=== PATIENT | male | born 1950 | race Hispanic/Latino ===

== ENCOUNTER 2017-01-28 14:39 | Inpatient (IN) | payer MEDICARE, OTHER ==
[2017-01-28 16:26] LABS: BASO # 0.02 K/mm3 (0.0-2.0); BASO % 0.2 % (0.0-3.0); EOS # 0.3 (0.0-0.7); EOS % 2.8 % (1.5-5.0); GRAN % 63.2 % (50.0-68.0); HEMOGLOBIN 10.6 gm/dL (14.0-18.0); LYMPH # 2.3 (1.2-3.4); MEAN CELL VOLUME 82.6 fL (80.0-105.0); MEAN CORPUSCULAR HEMOGLOBIN 26.4 pg (25.0-35.0); MEAN CORPUSCULAR HGB CONC 31.9 g/dl (31.0-37.0); MEAN PLATELET VOLUME 9.6 fl (7.0-11.0); MONO # 0.7 (0.1-0.6); MONO % 7.8 % (1.0-6.0); PLATELET COUNT 181 10^3/uL (120.0-450.0); RBC 4.02 10^6/uL (3.5-6.1); RED CELL DISTRIBUTION WIDTH 17.5 % (11.5-14.5); WHITE BLOOD COUNT 8.9 10^3/ul (4.5-11.0)
[2017-01-28 16:39] LABS: ALBUMIN 3.5 g/dL (3.0-4.8); ALT/SGPT 50 U/L (7-56); AST/SGOT 55 U/L (15-59); BLOOD UREA NITROGEN 14 mg/dL (7-21); GFR AFRICAN-AMERICAN > 60; GFR NON-AFRICAN AMERICAN > 60
--- NOTE | 2017-01-28 16:47 | RAD ---
HISTORY: draining wound to upper back s/p surgery COMPARISON: 01/14/2016 FINDINGS: LUNGS: There is a patchy infiltrate in the right lower lobe adjacent to the hilum. This is a new finding. This is suspicious for pneumonia PLEURA: No significant pleural effusion identified, no pneumothorax apparent. CARDIOVASCULAR: Normal. OSSEOUS STRUCTURES: No significant abnormalities. VISUALIZED UPPER ABDOMEN: Normal. OTHER FINDINGS: None. IMPRESSION: There is a patchy infiltrate in the right lower lobe adjacent to the hilum. This is a new finding. This is suspicious for pneumonia
--- NOTE | 2017-01-28 16:57 | ED PDOC ---
Arrival/HPI - General Chief Complaint: Wound Check Time Seen by Provider: 01/28/17 15:16 Historian: Patient - History of Present Illness Narrative History of Present Illness (Text): 01/28/17 16:54 67-year-old diabetic male presents today with a draining wound along the thoracic spine. Patient states about one year ago he had back surgery. Patient states over the past 3 weeks he's had continual draining from the wound along the incision site. Patient denies fevers or chills. No chest pain or shortness of breath. Denies abdominal pain. He denies pain along the back. Denies any urinary symptoms. Patient states he is being seen by the licensed mental health professional for an ulceration on the right foot. Time/Duration: Other (3 weeks) Symptom Onset: Gradual Symptom Course: Unchanged Past Medical History - Provider Review Nursing Documentation Reviewed: Yes - Travel History Have you recently traveled outside [place] w/in the past 3 mons?: No - Infectious Disease Hx of Infectious Diseases: None - Tetanus Immunization Tetanus Immunization: Unknown - Cardiac Hx Hypertension: Yes - Pulmonary Hx Pneumonia: Yes - Neurological Hx Neurological Disorder: Yes Hx Dizziness: Yes Hx Migraine: Yes - HEENT Hx HEENT Disorder: No - Renal Hx Renal Disorder: No - Endocrine/Metabolic Hx Diabetes Mellitus Type 2: Yes - Hematological/Oncological Hx Blood Transfusions: No Hx Blood Transfusion Reaction: No - Integumentary Hx Dermatological Disorder: Yes (RIGHT 2ND TOE AMPUTATED) - Musculoskeletal/Rheumatological Hx Musculoskeletal Disorders: Yes - Gastrointestinal Hx Gastrointestinal Disorders: No - Genitourinary/Gynecological Hx Genitourinary Disorders: No - Psychiatric Hx Depression: Yes (pt reports peroids of sadness) Hx Substance Use: No - Surgical History Hx Coronary Stent: Yes (X 3) - Anesthesia Hx Anesthesia: No Hx Anesthesia Reactions: No Hx Malignant Hyperthermia: No - Suicidal Assessment Feels Threatened In Home Enviroment: No Family/Social History - Physician Review Nursing Documentation Reviewed: Yes Family/Social History: Unknown Family HX Smoking Status: Former Smoker Hx Alcohol Use: Yes (former) Hx Substance Use: No Allergies/Home Meds Allergies/Adverse Reactions: Allergies No Known Allergies Allergy (Verified 01/14/16 13:28) Home Medications: Home Meds Medication Instructions Recorded Confirmed Amoxicillin/Potassium Clav 875 mg PO 01/28/17 [Amox-Clav 875-125 mg Tablet] Cilostazol [Pletal] 50 mg PO DAILY 01/28/17 01/28/17 Clopidogrel [Plavix] 75 mg PO DAILY 01/28/17 01/28/17 Methadone [Methadose] 6 mg PO BID 01/28/17 01/28/17 Metoprolol Succinate [Toprol XL] 50 mg PO DAILY 01/28/17 01/28/17 metFORMIN [glucOPHAGE] 500 mg PO BID 01/28/17 01/28/17 Review of Systems - Review of Systems Constitutional: absent: Fatigue, Fevers ENT: Sore Throat. absent: Sinus Congestion Respiratory: Cough. absent: SOB Cardiovascular: absent: Chest Pain, Palpitations Gastrointestinal: absent: Abdominal Pain, Nausea, Vomiting Genitourinary Male: absent: Dysuria Musculoskeletal: absent: Arthralgias, Back Pain, Neck Pain Skin: Cellulitis Neurological: absent: Headache, Dizziness Psychiatric: absent: Anxiety, Depression Physical Exam Vital Signs Reviewed: Yes Vital Signs Temp Pulse Resp BP Pulse Ox 01/28/17 20:36 68 18 130/72 96 01/28/17 18:53 64 18 110/65 98 01/28/17 17:25 66 18 108/67 98 01/28/17 16:23 64 18 106/65 97 01/28/17 15:55 62 18 104/60 97 01/28/17 14:55 98.7 F 64 18 92/60 L 96 Temperature: Afebrile Blood Pressure: Hypotensive Pulse: Regular Respiratory Rate: Normal Appearance: Positive for: Well-Appearing, Non-Toxic, Comfortable Pain Distress: None Mental Status: Positive for: Alert and Oriented X 3 - Systems Exam Head: Present: Atraumatic Mouth: Present: Moist Mucous Membranes Neck: Present: Normal Range of Motion Respiratory/Chest: Present: Clear to Auscultation, Good Air Exchange. No: Respiratory Distress, Accessory Muscle Use, Wheezes, Tachypneic Cardiovascular: Present: Regular Rate and Rhythm Abdomen: No: Tenderness, Distention, Rebound, Guarding Back: Present: Other (there is a surgical scar along the midline of the upper back; there is a 2 cm vertical linear wound with a yellow serous discharge with a small area of surrounding erythema. non tender. ). No: Midline Tenderness, Paraspinal Tenderness Lower Extremity: Present: Normal ROM, Other (ulceration to plantar aspect of right foot; no surrounding erythema; edema or warmth.) Neurological: Present: GCS=15 Skin: Present: Warm, Dry Psychiatric: Present: Alert, Oriented x 3 Medical Decision Making ED Course and Treatment: 01/28/17 16:57 67-year-old diabetic male sent in by PMD for draining wound to the midline upper back CBC wnl CMP wnl EKGjunctional rhythm at 52 right bundle branch bloc and left axis deviation no ST elevations Chest x-rayFINDINGS: LUNGS: There is a patchy infiltrate in the right lower lobe adjacent to the hilum. This is a new finding. This is suspicious for pneumonia PLEURA: No significant pleural effusion identified, no pneumothorax apparent. CARDIOVASCULAR: Normal. OSSEOUS STRUCTURES: No significant abnormalities. VISUALIZED UPPER ABDOMEN: Normal. OTHER FINDINGS: None. IMPRESSION: There is a patchy infiltrate in the right lower lobe adjacent to the hilum. This is a new finding. This is suspicious for pneumonia CT thoracic spine; FINDINGS: Vertebrae: Postoperative fusion is identified from T4-T9. Bilateral pedicle fixation screws are visualized at T4, T5, T8, and T9. Compression deformities and fusion are visualized of the T6 and T7 vertebral bodies. There is increased kyphosis of the thoracic spine, with slight dextroscoliosis. Spondylosis and hyperostosis are visualized at multiple thoracic levels. Laminectomy defects are identified at multiple thoracic levels. There is a subcentimeter nonspecific sclerotic lesion within the L1 vertebral body. Discs/spinal canal/neural foramina: Artifact limits evaluation of the spinal canal at multiple thoracic levels in the area of postoperative change. There is no significant spinal canal stenosis at the remaining thoracic levels. Soft tissues: Soft tissue swelling is again visualized posterior to the thoracic spine in the area of postoperative change. Vasculature: Atherosclerotic changes are visualized. Pleural space: A consolidation is visualized within the right lower lobe of the lung, which has progressed. Nodular right pleural thickening is visualized. IMPRESSION: 1. Postoperative fusion is again identified from T4-T9. 2. Compression deformities and fusion are again visualized of the T6 and T7 vertebral bodies. 3. There is increased kyphosis of the thoracic spine, with slight dextroscoliosis. 4. Spondylosis and hyperostosis are visualized at multiple thoracic levels. 5. Soft tissue swelling is again visualized posterior to the thoracic spine in the area of postoperative change. If further evaluation is clinically indicated, MRI with/without contrast is recommended. 6. A consolidation is visualized within the right lower lobe of the lung, which has progressed. Nodular right pleural thickening is visualized. Chest CT and possible PET/CT are recommended. Wound culture blood cultures zosyn IV zithromax IV Patient reassessment: Vital signs are stable. Patient nontoxic well-appearing case discussed with dr. burnett will admit to med/surg with ID and Neurosurgical consult for pneumonia and open draining wound from prior back surgery. impression; pneumonia, surgical back wound admit to med/surg - Lab Interpretations Microbiology Results: Microbiology Results 01/28/17 15:40 Back Gram Stain - Final Lab Results: 01/28/17 16:00 01/28/17 16:00 Lab Results 01/28/17 17:47: Urine Color Yellow, Urine Appearance Clear, Urine pH 6.5, Ur Specific [place] 1.020, Urine Protein Negative, Urine Glucose (UA) Negative, Urine Ketones Negative, Urine Blood Moderate H, Urine Nitrate Negative, Urine Bilirubin Negative, Urine Urobilinogen 0.2, Ur Leukocyte Esterase Small H, Urine RBC 15 - 20, Urine WBC 5 - 10, Ur Epithelial Cells 10 - 12 01/28/17 16:00: WBC 8.9 D, RBC 4.02, Hgb 10.6 L, Hct 33.2 L, MCV 82.6, MCH 26.4 , MCHC 31.9, RDW 17.5 H, Plt Count 181, MPV 9.6, Gran % 63.2, Lymph % (Auto) 26.0, [place] % (Auto) 7.8 H, Eos % (Auto) 2.8, Baso % (Auto) 0.2, Gran # 5.60, Lymph # 2.3, [place] # 0.7 H, Eos # 0.3, Baso # 0.02 01/28/17 16:00: Sodium 141, Potassium 5.0, Chloride 97, Carbon Dioxide 34 H, Anion Gap 15, BUN 14, Creatinine 0.9, Est GFR ( Amer) > 60, Est GFR (Non- Af Amer) > 60, Random Glucose 90, Calcium 9.0, Total Bilirubin 0.6, AST 55, ALT 50, Alkaline Phosphatase 105, Total Protein 7.1, Albumin 3.5, Globulin 3.7, Albumin/Globulin Ratio 1.0 L - RAD Interpretation Radiology Orders: 01/28/17 15:43 CHEST PORTABLE [RAD] Stat 01/28/17 17:59 THORACIC SPINE W/O CONT [CT] Stat - Medication Orders Current Medication Orders: Discontinued Medications Azithromycin (Zithromax 500mg In Ns) 500 mg in 250 mls @ 167 mls/hr IVPB STAT STA PRN Reason: Protocol Stop: 01/28/17 18:47 Last Admin: 01/28/17 18:29 Dose: 167 mls/hr Piperacillin Sod/Tazobactam Sod (Zosyn 3.375 In Ns 100ml) 100 mls @ 200 mls/hr IVPB STAT STA PRN Reason: Protocol Stop: 01/28/17 17:49 Last Admin: 01/28/17 17:38 Dose: 200 mls/hr Disposition/Present on Arrival - Present on Arrival Any Indicators Present on Arrival: No History of DVT/PE: No History of Uncontrolled Diabetes: No Urinary Catheter: No History of Decub. Ulcer: No History Surgical Site Infection Following: None - Disposition Have Diagnosis and Disposition been Completed?: Yes Diagnosis: Pneumonia, Wound infection Disposition: HOSPITALIZED Disposition Time: 17:51 Patient Plan: Admission Patient Problems: Current Active Problems Problem Status Onset Pneumonia Acute Wound infection Acute Condition: FAIR
[2017-01-28] MEDS ORDERED: cefTRIAXone 1 gm 100 ML IVPB STA (17:18)
[2017-01-28] MEDS ORDERED: Azithromycin 500MG/NS 250ml 500 MG/250 ML BAG IVPB STA (17:18)
[2017-01-28] MEDS ORDERED: Piperacillin/Tazobact 3.375 gm 100 ML IVPB STA (17:20)
[2017-01-28 18:03] LABS: PH,URINE 6.5 (4.7-8.0); URINE BILIRUBIN NEGATIVE (NEGATIVE); URINE BLOOD MODERATE (NEGATIVE); URINE GLUCOSE (UA) NEGATIVE (NEGATIVE); URINE LEUKOCYTE ESTERASE SMALL Leu/uL (NEGATIVE); URINE NITRATE NEGATIVE (NEGATIVE); URINE PROTEIN NEGATIVE mg/dL (<30 mg/dL); URINE UROBILINOGEN 0.2 E.U./dL (<1 E.U./dL)
[2017-01-28 18:18] LABS: URINE APPEARANCE CLEAR (CLEAR); URINE COLOR YELLOW (YELLOW)
[2017-01-28 18:21] LABS: URINE RBC 15 - 20 /hpf (0-2)
--- NOTE | 2017-01-28 20:37 | CARD ---
APPROVED REPORT EKG Measurement Heart [id number] <Conclusion> Junctional rhythm Left axis deviation Low voltage QRS Right bundle branch block Abnormal ECG
--- NOTE | 2017-01-28 21:01 | CT ---
EXAM: CT Thoracic Spine Without Intravenous Contrast CLINICAL HISTORY: The patient age is 67 years old and is male; Screening exam; Prior surgery with drainage Facility exam id and description: Ct tsps thoracic spine w/o cont TECHNIQUE: Axial computed tomography images of the thoracic spine without intravenous contrast. This CT exam was performed using one or more of the following dose reduction techniques: automated exposure control, adjustment of the mA and/or kV according to patient size, and/or use of iterative reconstruction technique. Coronal and sagittal reformatted images were created and reviewed. EXAM DATE/TIME: 01/28/2017 5:59 PM COMPARISON: CT - THORACIC SPINE W/O CONT 08/12/2016 10:06:25 AM FINDINGS: Vertebrae: Postoperative fusion is identified from T4-T9. Bilateral pedicle fixation screws are visualized at T4, T5, T8, and T9. Compression deformities and fusion are visualized of the T6 and T7 vertebral bodies. There is increased kyphosis of the thoracic spine, with slight dextroscoliosis. Spondylosis and hyperostosis are visualized at multiple thoracic levels. Laminectomy defects are identified at multiple thoracic levels. There is a subcentimeter nonspecific sclerotic lesion within the L1 vertebral body. Discs/spinal canal/neural foramina: Artifact limits evaluation of the spinal canal at multiple thoracic levels in the area of postoperative change. There is no significant spinal canal stenosis at the remaining thoracic levels. Soft tissues: Soft tissue swelling is again visualized posterior to the thoracic spine in the area of postoperative change. Vasculature: Atherosclerotic changes are visualized. Pleural space: A consolidation is visualized within the right lower lobe of the lung, which has progressed. Nodular right pleural thickening is visualized. IMPRESSION: 1. Postoperative fusion is again identified from T4-T9. 2. Compression deformities and fusion are again visualized of the T6 and T7 vertebral bodies. 3. There is increased kyphosis of the thoracic spine, with slight dextroscoliosis. 4. Spondylosis and hyperostosis are visualized at multiple thoracic levels. 5. Soft tissue swelling is again visualized posterior to the thoracic spine in the area of postoperative change. If further evaluation is clinically indicated, MRI with/without contrast is recommended. 6. A consolidation is visualized within the right lower lobe of the lung, which has progressed. Nodular right pleural thickening is visualized. Chest CT and possible PET/CT are recommended.
[2017-01-29] MEDS ORDERED: Piperacillin/Tazobact 3.375 gm Inj IVPB SCH (01:45)
[2017-01-29] MEDS: Piperacillin/Tazobact 3.375 gm 100 ML IVPB SCH ×2 (02:09→08:47)
[2017-01-29] MEDS ORDERED: METHADONE PO SCH (10:30)
[2017-01-29] MEDS: Sodium Chloride 0.45% 1,000 ML IV SCH (11:34)
[2017-01-29] MEDS: Pantoprazole 40 mg EC Tab PO SCH (11:35)
[2017-01-29] MEDS: Vancomycin 1gm in NS 250ml 1 GM/250 ML BAG IVPB SCH ×2 (11:35→22:12)
[2017-01-29] MEDS: POLYETHYLENE GLYCOL 3350 17 GM/Dose PACKET PO SCH (11:36)
[2017-01-29] MEDS: Metoprolol Succinate 50 mg XL Tab PO SCH (11:36)
[2017-01-29] MEDS ORDERED: Iohexol 350 MG/100 ML VIAL ONE (13:20)
[2017-01-29] MEDS: Meropenem 1g/NS 100mL IVPB 1 GM/100 ML PIGGYBACK IVPB SCH ×2 (15:17→21:34)
--- NOTE | 2017-01-29 15:21 | CP.PCM.CON ---
History of Present Illness - History of Present Illness History of Present Illness: consult dictated minimal opening no erythema pus etc afeb nl WBC does not seem grossly infected Rec bacitracin ointmant and gauze BID dressing changes Abcs per ID service will f/u in off Past Patient History - Infectious Disease Hx of Infectious Diseases: None - Tetanus Immunizations Tetanus Immunization: Unknown - Past Social History Smoking Status: Former Smoker - CARDIAC Hx Hypertension: Yes - PULMONARY Hx Pneumonia: Yes - NEUROLOGICAL Hx Neurological Disorder: Yes Hx Dizziness: Yes Hx Migraine: Yes - HEENT Hx HEENT Problems: No - RENAL Hx Chronic Kidney Disease: No - ENDOCRINE/METABOLIC Hx Diabetes Mellitus Type 2: Yes - HEMATOLOGICAL/ONCOLOGICAL Hx Blood Transfusions: No Hx Blood Transfusion Reaction: No - INTEGUMENTARY Hx Dermatological Problems: Yes (RIGHT 2ND TOE AMPUTATED) - MUSCULOSKELETAL/RHEUMATOLOGICAL Hx Musculoskeletal Disorders: Yes - GASTROINTESTINAL Hx Gastrointestinal Disorders: No - GENITOURINARY/GYNECOLOGICAL Hx Genitourinary Disorders: No - PSYCHIATRIC Hx Depression: Yes (pt reports peroids of sadness) Hx Substance Use: No - SURGICAL HISTORY Hx Coronary Stent: Yes (X 3) - ANESTHESIA Hx Anesthesia: No Hx Anesthesia Reactions: No Hx Malignant Hyperthermia: No Meds Allergies/Adverse Reactions: Allergies Allergy/AdvReac Type Severity Reaction Status Date / Time No Known Allergies Allergy Verified 01/14/16 13:28 - Medications Medications: Current Medications Atorvastatin Calcium (Lipitor) 40 mg PO DIN EZE Clonazepam (Klonopin) 1 mg PO BID [facility] Stop: 02/06/17 08:00 Clopidogrel Bisulfate (Plavix) 75 mg PO DAILY [facility] Last Admin: 01/29/17 11:36 Dose: 75 mg Meropenem 1g/NS 100mL IVPB (Meropenem 1g/Ns 100ml Ivpb) 1 gm in 100 mls @ 100 mls/hr IVPB Q8 EZE PRN Reason: Protocol Stop: 02/07/17 14:01 Vancomycin HCl (Vancomycin 1gm) 1 gm in 250 mls @ 167 mls/hr IVPB Q12H [facility] PRN Reason: Protocol Stop: 02/07/17 10:31 Last Admin: 01/29/17 11:35 Dose: 167 mls/hr Sodium Chloride (Sodium Chloride 0.45%) 1,000 mls @ 75 mls/hr IV .[id number] [facility] Last Admin: 01/29/17 11:34 Dose: 75 mls/hr Metformin HCl (Glucophage) 500 mg PO BID [facility] Last Admin: 01/29/17 11:35 Dose: 500 mg Metoprolol Succinate (Toprol Xl) 50 mg PO DAILY [facility] Last Admin: 01/29/17 11:36 Dose: 50 mg Non-Formulary Medication (Methadone [Methadose]) 6 mg PO BID [facility] Pantoprazole Sodium (Protonix Ec Tab) 40 mg PO ACB [facility] Last Admin: 01/29/17 11:35 Dose: 40 mg Polyethylene Glycol (Miralax) 17 gm PO DAILY [facility] Last Admin: 01/29/17 11:36 Dose: 17 gm Ramipril (Altace) 2.5 mg PO DAILY [facility] Last Admin: 01/29/17 11:35 Dose: 2.5 mg Sitagliptin Phosphate (Januvia) 100 mg PO DAILY [facility] Last Admin: 01/29/17 11:36 Dose: 100 mg Results - Vital Signs Recent Vital Signs: Last Vital Signs Temp 97.6 F 01/29/17 07:30 Pulse 50 L 01/29/17 07:30 Resp 18 01/29/17 07:30 BP 110/68 01/29/17 11:35 Pulse Ox 94 L 01/29/17 07:30 - Labs Result Diagrams: 01/28/17 16:00 01/28/17 16:00 Labs: Laboratory Results - last 24 hr 01/29/17 01/29/17 01/29/17 08:24 11:37 11:53 ESR 32 H POC Glucose (mg/dL) 84 135 H
--- NOTE | 2017-01-29 15:50 | CT ---
PROCEDURE: CT scan chest dated 01/21/2017 HISTORY: Right lung infiltrate-mass COMPARISON: Comparison made with CT scan of the thoracic spine 01/28/2017 which imaged posterior lung bases. Comparison also made with chest radiograph 01/28/2017. Comparison also made with CTA chest 01/14/2016. TECHNIQUE: Contiguous axial images were obtained through the chest with intravenous contrast enhancement. Sagittal and coronal reconstructions were performed. IV contrast: 100 cc Omnipaque 350 contrast Radiation dose (DLP): Material 400.37 mGy-cm. This CT exam was performed using one or more of the following dose reduction techniques: Automated exposure control, adjustment of the mA and/or kV according to patient size, and/or use of iterative reconstruction technique. FINDINGS: LUNGS: There is small right-sided effusion with an area of atelectasis and masslike appearance and/or component of the superior margin of the atelectatic changes located in the posterior aspect right lower lobe. Small elliptical shaped area of low attenuation measuring approximately 2.6 x 0.83 cm located within the posterior aspect of this masslike component associated with some posterior peripheral calcification. This could represent chronic atelectasis with small loculated fluid component or possibly a developing cavitary infectious process versus necrotic mass associated with more inferior and distal atelectasis cannot be excluded. A follow-up CT scan at interval could be performed to assess for resolution. Minor atelectasis/scarring changes seen in the left lung base including the lingular and middle lobe regions. Mild centrilobular emphysematous changes upper lobe predominance. MEDIASTINUM: Heart size is upper limits of normal. No significant pericardial effusion. Ascending thoracic aorta measures approximately 3.5 cm and descending thoracic aorta measures approximately 2.7 cm. Pulmonary trunk measures approximately 2.32 cm. No significant mediastinal adenopathy. .There is a prominent right-sided hilar lymph node measuring approximately 2.2 x 1.7 mm with the 2nd slightly more inferiorly located and smaller lymph node measuring 11 mm. Small left hilar lymph node present. Several mediastinal lymph nodes are present the largest in the precarinal region measuring approximately 17.6 mm. . Incidental note made of a small approximately 7 mm elliptical shaped low-attenuation focus within posterior aspect left lobe thyroid gland of uncertain etiology. Recommend followup thyroid ultrasound. PLEURA: As above. No evidence of pneumothorax. BONES: Re- demonstrated are chronic appearing anterior wedge compression fractures and fusion of the T6 and T7 segments. Bilateral laminectomy changes at this level with posterior fixation accomplished by placement of bilateral Dhaliwal rods which are attached to the right and left pedicles of the T4, T5, T8 and T9 segments. Note that the left pedicular screw at the T4 segment appears to extend just lateral to lateral margin of the the T9 segment unchanged from prior study. UPPER ABDOMEN: Small hiatal hernia esophagus with slight wall thickening of the distal esophagus that could be due to protrusion gastric mucosa. Esophagitis not excluded OTHER FINDINGS: None. IMPRESSION: There is small right-sided effusion with an area of atelectasis and masslike appearance and/or component of the superior margin of the atelectatic changes located in the posterior aspect right lower lobe. Small elliptical shaped area of low attenuation measuring approximately 2.6 x 0.83 cm located within the posterior aspect of this masslike component associated with some posterior peripheral calcification. This could represent chronic atelectasis with small loculated fluid component or possibly a developing cavitary infectious process versus necrotic mass associated with more inferior and distal atelectasis cannot be excluded. A follow-up CT scan at interval could be performed to assess for resolution. . Alternatively, PET-CT scan could be obtained if history of primary carcinoma this patient were high concern for malignancy. Mild linear atelectasis/scarring changes both lung bases including middle lobe and lingular regions. Mild centrilobular emphysematous changes upper lobe predominance. See above discussion for additional details and findings.
--- NOTE | 2017-01-29 20:51 | CON ---
DATE: 01/29/2017 LOCATION: The patient is in room 575, bed 2. CHIEF COMPLAINT: Chronic drainage from his back for several weeks. 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 The patient states that he has some cough, and he has no fevers and no chills. He has not been in the hospital, last hospitalized for last 3 months. No chest pain, no abdominal pain, diarrhea, or constipation. PAST MEDICAL HISTORY: Significant for diskitis, osteomyelitis, diabetes, hypertension, MRSA bacteremia, MRSA wound infection, questionable dementia. PAST SURGICAL HISTORY: Significant for laminectomy and cholecystectomy and a second toe amputation and coronary artery bypass graft. ALLERGIES: The patient has no known allergies. MEDICATIONS: Reviewed and include metoprolol, Klonopin, Plavix, metformin, , Protonix. The patient was on antibiotic at home and Augmentin. PHYSICAL EXAMINATION GENERAL: The patient is in bed with no acute distress, answering questions. VITAL SIGNS: Temperature of 97, pulse of 68, respiratory rate of 18, blood pressure is 117/60. HEENT: Unremarkable. NECK: Supple. LUNGS: Decreased breath sounds. HEART: Normal S1 and S2. ABDOMEN: Soft, nontender. No rebound or guarding. MUSCULOSKELETAL: Examination of the spine reveals the patient has a dime-sized ulcer, approximately T6-T7 level and clear discharge. The patient also has a chronic ulcer on the base of his right foot. LABORATORY EXAMINATION: Reveals a white count of 8.9, hemoglobin 10, platelets of 181. Chemistries are noted. Creatinine is 0.9. Urinalysis is noted. The patient also had a chest x-ray, which showed right lower lobe pneumonia. EKG, which showed a QTC of 429. CAT scan of the spine which shows chronic changes also. ASSESSMENT AND PLAN: He is a 67-year-old with diabetes and history of laminectomy, diskitis, osteomyelitis, what appears to be a chronic wound infection with his spine, must rule out underlying chronic osteomyelitis in a patient with community-acquired pneumonia radiologically. We will treat the patient with vancomycin and meropenem. Order indium scan with WBC scan if there is any uptake in the spine. Also order a bone scan if there is any uptake in his spine with sed rate, C-reactive protein, and procalcitonin. I will make further recommendations we will follow closely with you. Roel English MD
[2017-01-30] MEDS: Sodium Chloride 0.45% 1,000 ML IV SCH (03:51)
[2017-01-30] MEDS: Meropenem 1g/NS 100mL IVPB 1 GM/100 ML PIGGYBACK IVPB SCH ×3 (05:00→21:32)
[2017-01-30] MEDS: Pantoprazole 40 mg EC Tab PO SCH (08:48)
[2017-01-30] MEDS: Vancomycin 1gm in NS 250ml 1 GM/250 ML BAG IVPB SCH ×2 (09:45→22:57)
[2017-01-30] MEDS: POLYETHYLENE GLYCOL 3350 17 GM/Dose PACKET PO SCH (09:46)
[2017-01-30] MEDS: Metoprolol Succinate 50 mg XL Tab PO SCH (09:47)
--- NOTE | 2017-01-30 11:39 | PN ---
DATE: 01/30/2017 SUBJECTIVE: The patient is in bed in no acute distress, nontoxic. PHYSICAL EXAMINATION: VITAL SIGNS: Temperature is 97, blood pressure is 140/80, respiratory rate of 20. HEENT: Unremarkable. NECK: Supple. LUNGS: Decreased breath sounds. HEART: Normal S1 and S2. ABDOMEN: Soft and nontender. LABORATORY DATA: Reveals the white count of 8.9, hemoglobin of 10, platelets of 181, sed rate is 32. BUN of 14, creatinine of 0.9, procalcitonin is 0.05. Urinalysis is noted. Microbiology is noted. Blood cultures are negative. Cultures from his back are pending. The patient had a CAT scan of the chest. Dr. Chris Bergman's note is reviewed, consultation. ASSESSMENT AND PLAN: This is a 67-year-old male with history of diabetes mellitus, coronary artery disease, hypertension, history of methicillin-resistant Staphylococcus aureus bacteremia, history of osteomyelitis of T6 and T7 and discitis with the methicillin-resistant Staphylococcus aureus bacteremia and had prolonged antibiotics; had a laminectomy, history of coronary artery bypass graft and cholecystectomy and a second toe amputation; no allergies, who is admitted now with a chronic drainage from his back, concerned about a chronic osteomyelitis; a bone scan is ordered and since the patient had laminectomy unable to do an MRI. Also, a WBC scan is ordered; currently on meropenem and vancomycin. Pending wound culture. ordered an MRI of the spine and we will check on that and we will make further recommendations. Roel English MD
[2017-01-30] MEDS: Bacitracin 500 Units/gm Oint Foilpak UD TOP SCH ×2 (15:12→17:52)
--- NOTE | 2017-01-30 16:46 | NM ---
PROCEDURE: Whole Body Bone Scan HISTORY: uptake in spine COMPARISON: Chest CT 01/29/[address] 01/28/2017. . TECHNIQUE: Following administration of 25.0 miCu of Tc MDP multiplanar whole body images were obtained. FINDINGS: Uptake in the upper to mid thoracic spine appears to parallel placement of posterior spinal fusion hardware and is felt to be postoperative related. No definite bandlike increased activities appreciated there would suggest an acute or subacute compression fracture. Sternal uptake may be a function of shine through from spinal activity as well as prior median sternotomy. Further, likely posttraumatic uptake is seen at the left 7th and 8th ribs posteriorly. Physiologic uptake: Normal physiologic activity in the kidneys. Other findings: None. IMPRESSION: No evidence of bony metastatic disease. Postop related uptake is felt to present the upper to mid thoracic spine. Likely posttraumatic uptake is seen at the left 7th and 8th ribs posteriorly.
[2017-01-31 01:01] VITALS: BMI 23.3
[2017-01-31] MEDS: Sodium Chloride 0.45% 1,000 ML IV SCH (05:50)
[2017-01-31] MEDS: Meropenem 1g/NS 100mL IVPB 1 GM/100 ML PIGGYBACK IVPB SCH ×3 (05:51→21:27)
[2017-01-31] MEDS: Pantoprazole 40 mg EC Tab PO SCH (06:42)
[2017-01-31] MEDS: Metoprolol Succinate 50 mg XL Tab PO SCH (10:16)
[2017-01-31] MEDS: POLYETHYLENE GLYCOL 3350 17 GM/Dose PACKET PO SCH (10:16)
[2017-01-31] MEDS: Bacitracin 500 Units/gm Oint Foilpak UD TOP SCH ×2 (10:17→17:52)
[2017-01-31] MEDS: Vancomycin 1gm in NS 250ml 1 GM/250 ML BAG IVPB SCH (12:59)
--- NOTE | 2017-01-31 13:28 | PN ---
DATE: 01/31/2017 SUBJECTIVE: The patient is in bed, in no acute distress, nontoxic. PHYSICAL EXAMINATION: VITAL SIGNS: Temperature is 98, blood pressure is 130/60, respiratory rate of 20, heart rate of 47. HEENT: Unremarkable. NECK: Supple. LUNGS: Decreased breath sounds. HEART: Normal S1 and S2. ABDOMEN: Soft, nontender. LABORATORY DATA: Reveals a white count is 8.9, sed rate of 32, hemoglobin of 10. Chemistries are noted and the patient's C-reactive protein is elevated at 4.24, procalcitonin is less than 0.05 and the patient's BUN of 14, creatinine of 0.9, the LFTs are normal. Microbiology reveals the blood cultures are no growth. The cultures from the back is a gram positive cocci, light growth, and review of orders reveals the patient to be on meropenem and vancomycin. The patient had a bone scan. No evidence of bony metastasis, uptake is felt to be upper mid thoracic spine and indium scan, WBC labeled scan is pending. ASSESSMENT AND PLAN: This is a 67-year-old male with diabetes mellitus, coronary artery disease, hypertension, history of methicillin-resistant Staphylococcus aureus bacteremia, history of osteomyelitis at T6 and T7 and discitis with Staphylococcus aureus bacteremia with prolonged antibiotics, had a laminectomy and a coronary artery disease, coronary bypass graft, cholecystectomy, second toe amputation, was admitted now with chronic drainage from the back where laminectomy was done with a gram positive cocci, currently on vancomycin and meropenem, awaiting for an indium scan, questionable uptake on the bone scan is of minimal significance since positive. We will continue. Check on the WBC scan and make further recommendations. Roel English MD
--- NOTE | 2017-01-31 17:05 | US ---
HISTORY: thyroid nodule TECHNIQUE: Sonographic evaluation of the thyroid gland. COMPARISON: Thyroid ultrasound examination 01/19/2016. FINDINGS: RIGHT LOBE: Measures 3.2 x 1.5 x 1.7 cm. Right lower remains normal size overall with generally homogeneous appearing echotexture appreciate diffusely with the exception of 2 nodular foci in the interval. Nodules: A hypoechoic nodule is identified at the midpole laterally, measuring 0.3 x 0.1 x 0.2 cm with a mid to lower pole nodular focus or possible cyst measuring 0.1 x 0.1 x 0.1 cm, also hypoechoic, similar in appearance to the midpole nodule or cyst. Both of these represent interval findings. LEFT LOBE: Measures 3.7 x 1.6 by 2.7 cm. Generally homogeneous echotexture appreciate upper and midpole with exception of 2 nodules. Nodules: A midpole nodule is slightly hypoechoic measuring 0.2 x 0.2 x 0.3 cm with a stable larger nodule identified in the lower pole measuring 0.9 x 1.2 x 1.2 cm not significantly changed in size. Increased blood flow seen in the periphery of this nodule once again. ISTHMUS: Measures 0.2 cm. Normal echotexture and flow. Nodules: None OTHER FINDINGS: None . IMPRESSION: Two tiny interval nodules or complex cysts are noted in the right lobe which is otherwise unremarkable. 2 additional nodules are unchanged at the left lobe with a dominant again remaining at the lower pole left lobe. Clinical follow-up is advised.
--- NOTE | 2017-01-31 19:52 | CP.PCM.HP ---
History of Present Illness - History of Present Illness History of Present Illness: back wound infection, seen by [facility], s/p brian 1 year ago for thoracic spine osteomylitis cough Present on Admission - Present on Admission Any Indicators Present on Admission: Yes History of DVT/PE: No History of Uncontrolled Diabetes: No Urinary Catheter: No Decubitus Ulcer Present: No History Surgical Site Infection Following: Orthopedic Procedures (i year ago oseomylitis thoracic spine, then infection post op treated healed came again same site drainage), None - Notes: Notes:: spine surgery 1 year ago Review of Systems - Review of Systems All systems: reviewed and no additional remarkable complaints except Review of Systems: weakness back painchronic general wean\kness but improving now walking with cane - Constitutional Constitutional: Fatigue Past Patient History - Infectious Disease Hx of Infectious Diseases: None - Tetanus Immunizations Tetanus Immunization: Unknown - Past Social History Smoking Status: Never Smoked - CARDIAC Hx Cardiac Disorders: Yes Hx Hypertension: Yes - PULMONARY Hx Respiratory Disorders: Yes Hx Pneumonia: Yes - NEUROLOGICAL Hx Neurological Disorder: Yes Hx Dizziness: Yes Hx Migraine: Yes - HEENT Hx HEENT Problems: No - RENAL Hx Chronic Kidney Disease: No - ENDOCRINE/METABOLIC Hx Diabetes Mellitus Type 2: Yes - HEMATOLOGICAL/ONCOLOGICAL Hx Blood Disorders: No Hx AIDS: No Hx Anemia: No Hx Cancer: No Hx Chemotherapy: No Hx Cirrhosis: No Hx Hepatitis A: No Hx Hepatitis B: No Hx Hepatitis C: No Hx Human Immunodeficiency Virus (HIV): No Hx Metastesis: No Hx Shingles: No Hx Unexplained Bleeding: No - INTEGUMENTARY Hx Dermatological Problems: Yes (RIGHT 2ND TOE AMPUTATED) - MUSCULOSKELETAL/RHEUMATOLOGICAL Hx Falls: No - GASTROINTESTINAL Hx Gastrointestinal Disorders: Yes Hx Gall Bladder Disease: Yes - GENITOURINARY/GYNECOLOGICAL Hx Genitourinary Disorders: No - PSYCHIATRIC Hx Substance Use: Yes - SURGICAL HISTORY Hx Surgeries: Yes Hx Amputation: Yes (RIGHT 2ND TOE) Hx Coronary Stent: Yes (X 3) Hx Orthopedic Surgery: Yes - ANESTHESIA Hx Anesthesia: No Hx Anesthesia Reactions: No Hx Malignant Hyperthermia: No Meds Allergies/Adverse Reactions: Allergies Allergy/AdvReac Type Severity Reaction Status Date / Time No Known Allergies Allergy Verified 01/14/16 13:28 Physical Exam - Constitutional Appears: Well - Head Exam Head Exam: ATRAUMATIC, NORMAL INSPECTION, NORMOCEPHALIC - Eye Exam Eye Exam: EOMI, Normal appearance - ENT Exam ENT Exam: Mucous Membranes Moist - Respiratory Exam Respiratory Exam: NORMAL BREATHING PATTERN Additional comments: decrease breth sounds on the bases - Cardiovascular Exam Cardiovascular Exam: REGULAR RHYTHM - GI/Abdominal Exam GI & Abdominal Exam: Normal Bowel Sounds - Rectal Exam Rectal Exam: Deferred - Neurological Exam Neurological exam: Oriented x3 Additional comments: gait mild unsteady use cane - Psychiatric Exam Psychiatric exam: Normal Affect - Skin Skin Exam: Normal Color, Warm Additional comments: back exam thoracic area small verticl wound with mild drainage Results - Vital Signs Recent Vital Signs: Last Vital Signs Temp 97.7 F 01/31/17 16:00 Pulse 45 L 01/31/17 16:00 Resp 16 01/31/17 16:00 BP 127/72 01/31/17 16:00 Pulse Ox 96 01/31/17 16:00 - Labs Result Diagrams: 01/28/17 16:00 01/28/17 16:00 Labs: Laboratory Results - last 24 hr 01/30/17 01/30/17 01/31/17 16:20 21:29 07:28 POC Glucose (mg/dL) 98 117 H 115 H Assessment & Plan (1) Pneumonia Status: Acute (2) Wound infection Status: Acute (3) Back pain Status: Acute (4) Weakness Status: Acute - Assessment and Plan (Free Text) Plan: admitt , iv antibiotics, locall wound care id consult , ortho, neurosurgery consult resume meds , methadone for chronic back pain pulmonary consult , iv antibiotics, id consult, ct chest, mri spine , Decision To Admit - Pt Status Changed To: Hospital Disposition Of: Inpatient Admission - Admit Certification Admit to Inpatient:: After my assessment, the patient will require hospitalization for at least two midnights. This is because of the severity of symptoms shown, intensity of services needed, and/or the medical risk in this patient being treated as an outpatient. - . Bed Request Type: Med/Surg
--- NOTE | 2017-01-31 20:00 | CP.PCM.PN ---
Subjective - Date & Time of Evaluation Date of Evaluation: 01/31/17 Time of Evaluation: 11:00 - Subjective Subjective: feel better discussed triphasic bone scan no chest pain or sob Objective - Vital Signs/Intake and Output Vital Signs (last 24 hours): Temp Pulse Resp BP Pulse Ox 97.7 F 45 L 16 127/72 96 01/31/17 16:00 01/31/17 16:00 01/31/17 16:00 01/31/17 16:00 01/31/17 16:00 Intake and Output: 01/31/17 02/01/17 18:59 06:59 Intake Total 840 Balance 840 - Medications Medications: Current Medications Atorvastatin Calcium (Lipitor) 40 mg PO DIN [facility] Last Admin: 01/31/17 17:50 Dose: 40 mg Bacitracin (Bacitracin) 1 ea TOP BID [facility] Last Admin: 01/31/17 17:52 Dose: 1 ea Clonazepam (Klonopin) 1 mg PO BID [facility] Stop: 02/06/17 08:00 Last Admin: 01/31/17 17:53 Dose: 1 mg Clopidogrel Bisulfate (Plavix) 75 mg PO DAILY [facility] Last Admin: 01/31/17 10:17 Dose: 75 mg Meropenem 1g/NS 100mL IVPB (Meropenem 1g/Ns 100ml Ivpb) 1 gm in 100 mls @ 100 mls/hr IVPB Q8 [facility] PRN Reason: Protocol Stop: 02/07/17 14:01 Last Admin: 01/31/17 17:50 Dose: 100 mls/hr Vancomycin HCl (Vancomycin 1gm) 1 gm in 250 mls @ 167 mls/hr IVPB Q12H [facility] PRN Reason: Protocol Stop: 02/07/17 10:31 Last Admin: 01/31/17 12:59 Dose: 167 mls/hr Sodium Chloride (Sodium Chloride 0.45%) 1,000 mls @ 75 mls/hr IV .[id number] [facility] Last Admin: 01/31/17 05:50 Dose: 75 mls/hr Metformin HCl (Glucophage) 500 mg PO BID [facility] Last Admin: 01/31/17 17:53 Dose: 500 mg Methadone HCl (Methadone) 40 mg PO DAILY [facility] Last Admin: 01/31/17 10:17 Dose: 40 mg Methadone HCl (Methadone) 30 mg PO DIN [facility] Last Admin: 01/31/17 17:53 Dose: 30 mg Metoprolol Succinate (Toprol Xl) 50 mg PO DAILY [facility] Last Admin: 01/31/17 10:16 Dose: 50 mg Pantoprazole Sodium (Protonix Ec Tab) 40 mg PO ACB [facility] Last Admin: 01/31/17 06:42 Dose: 40 mg Polyethylene Glycol (Miralax) 17 gm PO DAILY [facility] Last Admin: 01/31/17 10:16 Dose: 17 gm Ramipril (Altace) 2.5 mg PO DAILY [facility] Last Admin: 01/30/17 09:48 Dose: 2.5 mg Sitagliptin Phosphate (Januvia) 100 mg PO DAILY [facility] Last Admin: 01/31/17 10:17 Dose: 100 mg - Constitutional Appears: Well - Head Exam Head Exam: ATRAUMATIC - Eye Exam Eye Exam: EOMI, Normal appearance Pupil Exam: PERRL - ENT Exam ENT Exam: Mucous Membranes Dry, Mucous Membranes Moist, Normal Exam, Normal External Ear Exam, Normal Oropharynx, TM's Normal Bilaterally - Neck Exam Neck Exam: Full ROM - Respiratory Exam Respiratory Exam: Clear to Ausculation Bilateral, NORMAL BREATHING PATTERN - Cardiovascular Exam Cardiovascular Exam: REGULAR RHYTHM - GI/Abdominal Exam GI & Abdominal Exam: Normal Bowel Sounds - Rectal Exam Rectal Exam: NORMAL INSPECTION - Extremities Exam Extremities Exam: Normal Capillary Refill, Normal Inspection Additional comments: amputated toes rt side small healed ulcer on thr planter surface of the foot - Back Exam Back Exam: NORMAL INSPECTION Additional comments: small thoracic spine skine longitidinal wound seems dry Assessment and Plan (1) Pneumonia Status: Acute (2) Wound infection Status: Acute (3) Back pain Status: Acute (4) Weakness Status: Acute - Assessment and Plan (Free Text) Assessment: continue iv antibiotics pulmonary consult r/o mass thyroid us continue pain meds
[2017-02-01] MEDS: Vancomycin 1gm in NS 250ml 1 GM/250 ML BAG IVPB SCH ×2 (00:11→10:51)
[2017-02-01] MEDS: Sodium Chloride 0.45% 1,000 ML IV SCH ×2 (01:56→18:47)
--- NOTE | 2017-02-01 03:43 | CON ---
DATE: REFERRING PHYSICIAN: Dr. Villa. REASON FOR CONSULT: Abnormal x-rays. HISTORY OF PRESENT ILLNESS: This is a 67-year-old gentleman with past medical history significant for diabetes, coronary artery disease, hypertension, history of MRSA bacteremia, osteomyelitis of the T6-T7 spine diskitis, also has a history of laminectomy and history of coronary artery disease with coronary artery bypass surgery, has a history of vertebral infection, also with pneumonia, came in with a cough and seen by Dr. English, started on antibiotics, presently walking around in the room, feels much better, has mild spine area pain but no significant sputum production, mild cough. No hemoptysis or no hematemesis, no hematuria. No diarrhea reported. PAST MEDICAL HISTORY: T6-T7 diskitis with osteomyelitis, diabetes, hypertension, history of MRSA and sepsis, chronic lung disease, pneumonia with pulmonary infiltrate. ALLERGIES: NONE KNOWN. SOCIAL HISTORY: Active smoker. Denied any alcohol use. MEDICATIONS: He is on Altace 2.5 mg daily, bacitracin ointment to affected area twice a day, Glucophage 500 mg twice a day, Januvia 100 mg daily, Klonopin 1 mg twice a day, Lipitor 40 mg daily, meropenem 1 g every 8 hours, methadone 40 mg daily, total 70 mg daily, MiraLax 17 g daily, Plavix 75 mg daily, Protonix 40 mg daily, IV fluid half normal saline 75 mL per hour, Toprol XL 50 mg daily, vancomycin 1 g IV q. 12 hours. REVIEW OF SYSTEMS: No headache, no rhinitis. Mild cough. No chest pain. There is mid back discomfort. No abdominal pain. no dysuria. No leg pain. No leg swelling. PHYSICAL EXAMINATION GENERAL: In no acute distress. VITAL SIGNS: Temperature is 98, heart rate of 50, respiratory rate is 16, blood pressure 127/72 and pulse oximetry 96% on room air. HEENT: Moist mucous membranes. No oral thrush. NECK: Supple. No JVD LUNGS: Crackles at the base. HEART: S1 and S2. ABDOMEN: Soft and nontender. No organomegaly. EXTREMITIES: There is no edema. MUSCULOSKELETAL: Has a wound on the upper back at the T6 level. No swelling or tenderness. LABORATORY DATA: Shows hemoglobin 10.6, hematocrit 33.2, WBC 8.9, platelets are 181. Sed rate is 32. Procalcitonin less than 0.01. Sodium 141, potassium 5.0, chloride 97, bicarbonate 34, BUN 14, creatinine 0.9, glucose 90, calcium is 9.0, AST 55, ALT 50, alk phos is 105, albumin is 3.5, C-reactive protein 4.2. Urinalysis shows wbc 5 to 10. Microbiology 01/28 fine culture of vertebral wound is MRSA. Blood culture have been negative. Had a CAT scan of the chest done on admission which shows small right-sided effusion with an area of atelectasis and mass like appearance/ component of the superior margin of the atelectasis which is located in the posterior aspects of the right lower lobe, small elliptical shaped area of low attenuation measuring approximately 2.6 x 0.8 cm located within the posterior aspect of this mass like component associated with some posterior peripheral calcification. There is also mild linear atelectasis/ scarring changes in the both lung bases, mild centrilobular emphysema changes in upper lobe with some predominantly upper lobe. Also has a bone scan done yesterday which shows no evidence of bony metastatic disease, postop related uptake is felt to present in the upper to mild thoracic spine, luckily posttraumatic uptake is seen at the left 7th and 8th rib posteriorly. IMPRESSION AND PLAN: Known healing ulcer at thoracic spine with Methicillin-resistant Staphylococcus aureus infection, history of Methicillin-resistant Staphylococcus aureus bacteremia. Other issues are right lower lobe infiltrate with atelectasis, a tumor like mass, diabetes, coronary artery disease, history of coronary artery bypass surgery. The patient is active smoker. Agree with Dr. Villa and Dr. English. Agree with the present management. Continue antibiotics, bronchodilator, gastric prophylaxis, deep vein thrombosis prophylaxis, clinically probably related to pneumonia which we see on the x-rays, but will need follow up x-ray to assure the stability of this infiltrate. The patient urged to stop smoking, of course cannot make diagnosis without biopsy, but we will do follow up x-ray, and any change, especially increasing the size, will warrant further investigation including biopsy. For now, continue antibiotics, inhaled bronchodilators, urge patient to stop smoking and follow up x-rays. Case discussed with the patient, discussed the plan, agrees with the plan understanding risks, benefits ratio. Thank you and we will follow with you. Kuldip Hernandez MD [facility] # [id number]
[2017-02-01] MEDS: Meropenem 1g/NS 100mL IVPB 1 GM/100 ML PIGGYBACK IVPB SCH ×4 (06:09→22:31)
[2017-02-01] MEDS: Pantoprazole 40 mg EC Tab PO SCH (06:38)
--- NOTE | 2017-02-01 08:28 | CON ---
DATE: 01/29/2017 HISTORY OF PRESENT ILLNESS: This is a 67-year-old gentleman who is status post a thoracic fixation and fusion procedure for a fracture done approximately a year ago. He noticed a small opening with some drainage of his wounds for the past 3 or 4 weeks and was admitted through the ER apparently last night. Interviewing him today, he reports no fevers, no chills. Really, no other symptoms at home. Really does not have much in the way of pain. PAST MEDICAL HISTORY: Reviewed, most significant for what he concerns borderline diabetes. The rest of his history was reviewed in the EMR. MEDICATIONS: Reviewed in the EMR. ALLERGIES: Reviewed in the EMR. SOCIAL HISTORY: Reviewed in the EMR. PHYSICAL EXAMINATION: He has a very small opening in the mid point of his long incision, perhaps 1.5 cm. There is no erythema. There is very minimal serous drainage. There is no isauro pus. LABORATORY STUDIES: The CT of the thoracic spine was relatively benign. Good placement of all the hardware. No evidence of any deep seated infection or large fascial opening. White blood count is normal. The patient has been afebrile since his arrival. IMPRESSION AND PLAN: At best, this is a very minimal superficial infection. My recommendation would be topical treatment with bacitracin ointment, perhaps b.i.d. dressing changes, and a course of antibiotics as recommended by the Infectious Disease service. We can follow him up in our office. Chris Bergman MD
[2017-02-01] MEDS: Bacitracin 500 Units/gm Oint Foilpak UD TOP SCH ×2 (10:49→18:46)
[2017-02-01] MEDS: Metoprolol Succinate 50 mg XL Tab PO SCH (10:51)
[2017-02-01] MEDS: POLYETHYLENE GLYCOL 3350 17 GM/Dose PACKET PO SCH (10:52)
--- NOTE | 2017-02-01 16:15 | CP.PCM.PN ---
Subjective - Date & Time of Evaluation Date of Evaluation: 02/01/17 Time of Evaluation: 16:13 - Subjective Subjective: Pt has very poor veins,needs iv access Objective - Vital Signs/Intake and Output Vital Signs (last 24 hours): Temp Pulse Resp BP Pulse Ox 97.7 F 50 L 20 140/73 98 02/01/17 08:00 02/01/17 10:51 02/01/17 08:00 02/01/17 10:51 02/01/17 08:00 Intake and Output: 02/01/17 02/01/17 06:59 18:59 Intake Total 1800 960 Balance 1800 960 - Medications Medications: Current Medications Atorvastatin Calcium (Lipitor) 40 mg PO DIN [facility] Last Admin: 01/31/17 17:50 Dose: 40 mg Bacitracin (Bacitracin) 1 ea TOP BID [facility] Last Admin: 02/01/17 10:49 Dose: 1 ea Clonazepam (Klonopin) 1 mg PO BID [facility] Stop: 02/06/17 08:00 Last Admin: 02/01/17 10:50 Dose: 1 mg Clopidogrel Bisulfate (Plavix) 75 mg PO DAILY [facility] Last Admin: 02/01/17 10:51 Dose: 75 mg Meropenem 1g/NS 100mL IVPB (Meropenem 1g/Ns 100ml Ivpb) 1 gm in 100 mls @ 100 mls/hr IVPB Q8 [facility] PRN Reason: Protocol Stop: 02/07/17 14:01 Last Admin: 02/01/17 16:12 Dose: 100 mls/hr Vancomycin HCl (Vancomycin 1gm) 1 gm in 250 mls @ 167 mls/hr IVPB Q12H [facility] PRN Reason: Protocol Stop: 02/07/17 10:31 Last Admin: 02/01/17 10:51 Dose: 167 mls/hr Sodium Chloride (Sodium Chloride 0.45%) 1,000 mls @ 75 mls/hr IV .[id number] [facility] Last Admin: 02/01/17 01:56 Dose: 75 mls/hr Metformin HCl (Glucophage) 500 mg PO BID [facility] Last Admin: 02/01/17 10:51 Dose: 500 mg Methadone HCl (Methadone) 40 mg PO DAILY [facility] Last Admin: 02/01/17 10:45 Dose: 40 mg Methadone HCl (Methadone) 30 mg PO DIN [facility] Last Admin: 01/31/17 17:53 Dose: 30 mg Metoprolol Succinate (Toprol Xl) 50 mg PO DAILY [facility] Last Admin: 02/01/17 10:51 Dose: 50 mg Pantoprazole Sodium (Protonix Ec Tab) 40 mg PO ACB [facility] Last Admin: 02/01/17 06:38 Dose: 40 mg Polyethylene Glycol (Miralax) 17 gm PO DAILY [facility] Last Admin: 02/01/17 10:52 Dose: 17 gm Ramipril (Altace) 2.5 mg PO DAILY [facility] Last Admin: 02/01/17 10:50 Dose: 2.5 mg Sitagliptin Phosphate (Januvia) 100 mg PO DAILY [facility] Last Admin: 02/01/17 10:47 Dose: 100 mg - Constitutional Appears: No Acute Distress Assessment and Plan - Assessment and Plan (Free Text) Assessment: Poor venous access Plan: Hep lock inserted in the L forearm. #24 angiocath used.
--- NOTE | 2017-02-01 16:30 | CP.PCM.PN ---
Subjective - Date & Time of Evaluation Date of Evaluation: 02/01/17 Time of Evaluation: 10:45 - Subjective Subjective: Comfortable in bed, not in distress, afebrile, less pain in the back, and apparently the back lesion is drying up. Objective - Vital Signs/Intake and Output Vital Signs (last 24 hours): Temp Pulse Resp BP Pulse Ox 97.7 F 45 L 16 127/72 96 01/31/17 16:00 01/31/17 16:00 01/31/17 16:00 01/31/17 16:00 01/31/17 16:00 Intake and Output: 02/01/17 02/01/17 06:59 18:59 Intake Total 1800 Balance 1800 - Medications Medications: Current Medications Atorvastatin Calcium (Lipitor) 40 mg PO DIN [facility] Last Admin: 01/31/17 17:50 Dose: 40 mg Bacitracin (Bacitracin) 1 ea TOP BID [facility] Last Admin: 01/31/17 17:52 Dose: 1 ea Clonazepam (Klonopin) 1 mg PO BID [facility] Stop: 02/06/17 08:00 Last Admin: 01/31/17 17:53 Dose: 1 mg Clopidogrel Bisulfate (Plavix) 75 mg PO DAILY [facility] Last Admin: 01/31/17 10:17 Dose: 75 mg Meropenem 1g/NS 100mL IVPB (Meropenem 1g/Ns 100ml Ivpb) 1 gm in 100 mls @ 100 mls/hr IVPB Q8 [facility] PRN Reason: Protocol Stop: 02/07/17 14:01 Last Admin: 02/01/17 06:09 Dose: 100 mls/hr Vancomycin HCl (Vancomycin 1gm) 1 gm in 250 mls @ 167 mls/hr IVPB Q12H [facility] PRN Reason: Protocol Stop: 02/07/17 10:31 Last Admin: 02/01/17 00:11 Dose: 167 mls/hr Sodium Chloride (Sodium Chloride 0.45%) 1,000 mls @ 75 mls/hr IV .[id number] [facility] Last Admin: 02/01/17 01:56 Dose: 75 mls/hr Metformin HCl (Glucophage) 500 mg PO BID [facility] Last Admin: 01/31/17 17:53 Dose: 500 mg Methadone HCl (Methadone) 40 mg PO DAILY [facility] Last Admin: 01/31/17 10:17 Dose: 40 mg Methadone HCl (Methadone) 30 mg PO DIN [facility] Last Admin: 01/31/17 17:53 Dose: 30 mg Metoprolol Succinate (Toprol Xl) 50 mg PO DAILY [facility] Last Admin: 01/31/17 10:16 Dose: 50 mg Pantoprazole Sodium (Protonix Ec Tab) 40 mg PO ACB [facility] Last Admin: 02/01/17 06:38 Dose: 40 mg Polyethylene Glycol (Miralax) 17 gm PO DAILY [facility] Last Admin: 01/31/17 10:16 Dose: 17 gm Ramipril (Altace) 2.5 mg PO DAILY [facility] Last Admin: 01/31/17 10:16 Dose: 2.5 mg Sitagliptin Phosphate (Januvia) 100 mg PO DAILY [facility] Last Admin: 01/31/17 10:17 Dose: 100 mg - Constitutional Appears: Non-toxic, No Acute Distress - Head Exam Head Exam: NORMAL INSPECTION - ENT Exam ENT Exam: Mucous Membranes Moist - Neck Exam Neck Exam: absent: Meningismus - Respiratory Exam Respiratory Exam: Decreased Breath Sounds - Cardiovascular Exam Cardiovascular Exam: +S1, +S2 - GI/Abdominal Exam GI & Abdominal Exam: Soft. absent: Tenderness Assessment and Plan - Assessment and Plan (Free Text) Plan: Assessment Consider skin and skin structure infection at the site of previous laminectomy and hardware placement (reviewed CT scan of the thoracic spine and no evidence of deeper infection noted) - growing MRSA - was previously treated on 2016 for Skin and skin structure infection of similar area with at least 4 weeks of antibiotics history MRSA bacteremia with discitis and osteomyelitis S/P decompression laminectomy history of Cholelithiasis S/P cholecystectomy coronary artery disease hypertension diabetes mellitus dementia history of right foot osteomyelitis and amputation of right second toe CAD S/P PCI with cardiac stents placed and coronary bypass graft Plan continue Vancomycin and Merrem pending WBC scan and will follow clinically
--- NOTE | 2017-02-01 23:51 | PN ---
PULMONARY PROGRESS NOTE DATE: 02/01/2017 REFERRING PHYSICIAN: Dr. Villa. SUBJECTIVE: He is lying in the bed, awaiting for a house physician to take him and draw blood. No headache. No rhinitis. No cough. No nausea. No vomiting. No diarrhea. No leg pain or leg swelling. PHYSICAL EXAMINATION: GENERAL: No acute distress. VITAL SIGNS: Temperature 98, heart rate 60, respiratory rate is 18, blood pressure 140/73, pulse ox 97% on room air. HEENT: Moist mucous membranes. Crowded airway. NECK: Supple. No JVD. LUNGS: Crackles at the right base. HEART: S1 and S2. ABDOMEN: Soft, nontender. No organomegaly. EXTREMITIES: No edema. NEUROLOGIC: Awake and alert. Follows simple command. Mid spine has a dressing on the wound. MEDICATIONS: He is on Altace 2.5 mg daily, bacitracin ointment to affected area twice a day, metformin 500 mg twice a day, Januvia 100 mg daily, Klonopin 1 mg twice a day, Lipitor 40 mg daily, meropenem 1 g IV q.8 hours, methadone 40 mg daily and methadone 30 mg totally 70 mg daily, MiraLax 17 g daily, Plavix 75 mg daily, Protonix 20 mg daily, IV fluid half normal saline 75 mL/hour, Toprol-XL 50 mg daily, vancomycin IV q.12 hours. LABORATORY DATA: Blood sugar yesterday was 115. Microbiology, blood culture has been negative on 01/08. Wound culture has MRSA. 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 We will continue antibiotics, bronchodilator, gastric prophylaxis, DVT prophylaxis. Clinically, it seems like it is infectious related, but of course needs to followup x-ray to assure the stability of this finding in the lung and fall precaution. Kuldip Hernandez MD
[2017-02-02] MEDS: Meropenem 1g/NS 100mL IVPB 1 GM/100 ML PIGGYBACK IVPB SCH ×3 (05:42→20:59)
[2017-02-02] MEDS: Pantoprazole 40 mg EC Tab PO SCH (09:01)
[2017-02-02] MEDS: Metoprolol Succinate 50 mg XL Tab PO SCH (09:10)
[2017-02-02] MEDS: Bacitracin 500 Units/gm Oint Foilpak UD TOP SCH ×2 (09:16→19:18)
[2017-02-02] MEDS: POLYETHYLENE GLYCOL 3350 17 GM/Dose PACKET PO SCH (09:17)
--- NOTE | 2017-02-02 14:41 | CP.PCM.PN ---
Subjective - Date & Time of Evaluation Date of Evaluation: 02/02/17 Time of Evaluation: 10:35 - Subjective Subjective: Still awaiting WBC scan. No fevers overnight. Objective - Vital Signs/Intake and Output Vital Signs (last 24 hours): Temp Pulse Resp BP Pulse Ox 98.2 F 57 L 18 149/79 94 L 02/02/17 08:27 02/02/17 08:27 02/02/17 08:27 02/02/17 08:27 02/02/17 08:27 Intake and Output: 02/02/17 02/02/17 06:59 18:59 Intake Total 1200 Balance 1200 - Medications Medications: Current Medications Atorvastatin Calcium (Lipitor) 40 mg PO DIN [facility] Last Admin: 02/01/17 18:46 Dose: 40 mg Bacitracin (Bacitracin) 1 ea TOP BID [facility] Last Admin: 02/02/17 09:16 Dose: Not Given Clonazepam (Klonopin) 1 mg PO BID [facility] Stop: 02/06/17 08:00 Last Admin: 02/02/17 09:08 Dose: 1 mg Clopidogrel Bisulfate (Plavix) 75 mg PO DAILY [facility] Last Admin: 02/02/17 09:09 Dose: 75 mg Meropenem 1g/NS 100mL IVPB (Meropenem 1g/Ns 100ml Ivpb) 1 gm in 100 mls @ 100 mls/hr IVPB Q8 [facility] PRN Reason: Protocol Stop: 02/07/17 14:01 Last Admin: 02/02/17 05:42 Dose: 100 mls/hr Vancomycin HCl (Vancomycin 1gm) 1 gm in 250 mls @ 167 mls/hr IVPB Q12H [facility] PRN Reason: Protocol Stop: 02/07/17 10:31 Last Admin: 02/02/17 00:00 Dose: 167 mls/hr Sodium Chloride (Sodium Chloride 0.45%) 1,000 mls @ 75 mls/hr IV .[id number] [facility] Last Admin: 02/01/17 18:47 Dose: 75 mls/hr Metformin HCl (Glucophage) 500 mg PO BID [facility] Last Admin: 02/02/17 09:10 Dose: 500 mg Methadone HCl (Methadone) 40 mg PO DAILY [facility] Last Admin: 02/02/17 09:09 Dose: 40 mg Methadone HCl (Methadone) 30 mg PO DIN [facility] Last Admin: 02/01/17 18:46 Dose: 30 mg Metoprolol Succinate (Toprol Xl) 50 mg PO DAILY [facility] Last Admin: 02/02/17 09:10 Dose: 50 mg Pantoprazole Sodium (Protonix Ec Tab) 40 mg PO ACB [facility] Last Admin: 02/02/17 09:01 Dose: 40 mg Polyethylene Glycol (Miralax) 17 gm PO DAILY [facility] Last Admin: 02/02/17 09:17 Dose: Not Given Ramipril (Altace) 2.5 mg PO DAILY [facility] Last Admin: 02/02/17 09:17 Dose: Not Given Sitagliptin Phosphate (Januvia) 100 mg PO DAILY [facility] Last Admin: 02/02/17 09:09 Dose: 100 mg - Constitutional Appears: Non-toxic, No Acute Distress - Head Exam Head Exam: NORMAL INSPECTION - Neck Exam Neck Exam: absent: Meningismus - Respiratory Exam Respiratory Exam: Decreased Breath Sounds - GI/Abdominal Exam GI & Abdominal Exam: Soft. absent: Tenderness Assessment and Plan - Assessment and Plan (Free Text) Plan: Assessment Consider skin and skin structure infection at the site of previous laminectomy and hardware placement (reviewed CT scan of the thoracic spine and no evidence of deeper infection noted) - growing MRSA - was previously treated on 2016 for Skin and skin structure infection of similar area with at least 4 weeks of antibiotics history MRSA bacteremia with discitis and osteomyelitis S/P decompression laminectomy history of Cholelithiasis S/P cholecystectomy coronary artery disease hypertension diabetes mellitus dementia history of right foot osteomyelitis and amputation of right second toe CAD S/P PCI with cardiac stents placed and coronary bypass graft Plan continue Vancomycin and Merrem pending WBC scan and will continue to follow clinically
[2017-02-02] MEDS: Sodium Chloride 0.45% 1,000 ML IV SCH (15:01)
[2017-02-02] MEDS: Vancomycin 1gm in NS 250ml 1 GM/250 ML BAG IVPB SCH ×3 (15:01→22:50)
--- NOTE | 2017-02-02 16:08 | NM ---
PROCEDURE: Ceretec labeled white blood cell study. HISTORY: uptake in spine COMPARISON: 01/30/2017. Three-phase bone scan 01/29/2017 CT thorax 01/28/2017 CT thoracic spine. TECHNIQUE: 23.0 mCi white blood cells technetium 99 M Ceretec labeled FINDINGS: Particular attention in the thorax directed to the mid thoracic spine. No Ceretec avid abnormalities identified in the thorax. Expected uptake in the liver and spleen identified. IMPRESSION: Negative examination for acute inflammatory process.
--- NOTE | 2017-02-02 22:35 | PN ---
DATE: 02/02/2017 PULMONARY PROGRESS NOTE REFERRING PHYSICIAN: Dr. Guerra. SUBJECTIVE: He is out of bed to chair. Night was unremarkable. No headache, no rhinitis, no chest pain, no nausea, no vomiting, no diarrhea, no leg pain or leg swelling, still having upper back mid thoracic pain. PHYSICAL EXAMINATION: GENERAL: No acute distress. VITAL SIGNS: Temperature is 98, heart rate is 57, respiratory rate is 18, blood pressure 149/79, pulse is 97% on room air. HEENT: Moist mucous membranes. Crowded airway. NECK: Supple. No JVD. LUNGS: Few rhonchi in the right base. HEART: S1 and S2. ABDOMEN: Soft, nontender, no organomegaly. EXTREMITIES: No edema. NEUROLOGIC: Awake and alert. Follows simple commands. LABORATORY DATA: Showed blood sugar is 80. Microbiology: Blood culture negative, wound culture has MRSA. He has a nuclear scan done today, which shows negative examination for acute inflammatory process. MEDICATIONS: Reviewed. He is on Altace 2.5 mg daily, bacitracin ointment to affected area twice a day, metformin 500 mg twice a day, Januvia 100 mg daily, Klonopin 1 mg twice a day, Lipitor 40 mg daily, meropenem 1 g IV q. 8 hours, methadone 70 mg daily, MiraLax 17 g daily, Plavix 75 mg daily, Protonix 40 mg daily, IV fluid half normal saline 75 mL/hour, Toprol-XL 50 mg daily, vancomycin 1 g IV q. 12 hours. 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 From pulmonary point of view, he is doing okay. Continue antibiotics, bronchodilator. Will need followup CAT scan to assure the stability of finding on the right lung. For now, continue pulmonary toilet, aspiration precaution, antibiotics as per infectious diseases, gastric prophylaxis, deep venous thrombosis prophylaxis. Thank you, and we will followup with you. Kuldip Hernandez MD [facility] # [id number]
[2017-02-03] MEDS: Meropenem 1g/NS 100mL IVPB 1 GM/100 ML PIGGYBACK IVPB SCH ×3 (05:18→21:43)
[2017-02-03] MEDS: POLYETHYLENE GLYCOL 3350 17 GM/Dose PACKET PO SCH (09:20)
[2017-02-03] MEDS: Metoprolol Succinate 50 mg XL Tab PO SCH (09:23)
[2017-02-03] MEDS: Bacitracin 500 Units/gm Oint Foilpak UD TOP SCH ×2 (09:24→17:03)
--- NOTE | 2017-02-03 09:34 | CP.PCM.PN ---
Subjective - Date & Time of Evaluation Date of Evaluation: 02/01/17 Time of Evaluation: 17:00 - Subjective Subjective: feel better on iv antibiotics. walking without a cane, afebrile seen by consults Objective - Vital Signs/Intake and Output Vital Signs (last 24 hours): Temp Pulse Resp BP Pulse Ox 97.7 F 53 L 20 167/80 H 96 02/03/17 08:00 02/03/17 09:23 02/03/17 08:00 02/03/17 09:24 02/03/17 08:00 Intake and Output: 02/03/17 02/03/17 06:59 18:59 Intake Total 720 400 Balance 720 400 - Medications Medications: Current Medications Atorvastatin Calcium (Lipitor) 40 mg PO DIN [facility] Last Admin: 02/02/17 19:18 Dose: 40 mg Bacitracin (Bacitracin) 1 ea TOP BID [facility] Last Admin: 02/03/17 09:24 Dose: 1 ea Clonazepam (Klonopin) 1 mg PO BID [facility] Stop: 02/06/17 08:00 Last Admin: 02/03/17 09:23 Dose: 1 mg Clopidogrel Bisulfate (Plavix) 75 mg PO DAILY [facility] Last Admin: 02/03/17 09:24 Dose: 75 mg Meropenem 1g/NS 100mL IVPB (Meropenem 1g/Ns 100ml Ivpb) 1 gm in 100 mls @ 100 mls/hr IVPB Q8 [facility] PRN Reason: Protocol Stop: 02/07/17 14:01 Last Admin: 02/03/17 05:18 Dose: 100 mls/hr Vancomycin HCl (Vancomycin 1gm) 1 gm in 250 mls @ 167 mls/hr IVPB Q12H [facility] PRN Reason: Protocol Stop: 02/07/17 10:31 Last Admin: 02/02/17 22:50 Dose: 167 mls/hr Sodium Chloride (Sodium Chloride 0.45%) 1,000 mls @ 75 mls/hr IV .[id number] [facility] Last Admin: 02/02/17 15:01 Dose: Not Given Metformin HCl (Glucophage) 500 mg PO BID [facility] Last Admin: 02/03/17 09:23 Dose: 500 mg Methadone HCl (Methadone) 40 mg PO DAILY [facility] Last Admin: 02/03/17 09:24 Dose: 40 mg Methadone HCl (Methadone) 30 mg PO DIN [facility] Last Admin: 02/02/17 19:18 Dose: 30 mg Metoprolol Succinate (Toprol Xl) 50 mg PO DAILY [facility] Last Admin: 02/03/17 09:23 Dose: 50 mg Pantoprazole Sodium (Protonix Ec Tab) 40 mg PO ACB [facility] Last Admin: 02/02/17 09:01 Dose: 40 mg Polyethylene Glycol (Miralax) 17 gm PO DAILY [facility] Last Admin: 02/03/17 09:20 Dose: 17 gm Ramipril (Altace) 2.5 mg PO DAILY [facility] Last Admin: 02/03/17 09:24 Dose: 2.5 mg Sitagliptin Phosphate (Januvia) 100 mg PO DAILY [facility] Last Admin: 02/02/17 09:09 Dose: 100 mg - Head Exam Head Exam: ATRAUMATIC, NORMAL INSPECTION, NORMOCEPHALIC - Eye Exam Eye Exam: EOMI, Normal appearance - ENT Exam ENT Exam: Mucous Membranes Moist - Respiratory Exam Respiratory Exam: Clear to Ausculation Bilateral - Cardiovascular Exam Cardiovascular Exam: REGULAR RHYTHM - Rectal Exam Rectal Exam: Deferred - Neurological Exam Neurological Exam: Abnormal Gait, Alert, Awake, CN II-XII Intact - Skin Skin Exam: Normal Color Additional comments: back thoracic area is covered with gauze Assessment and Plan (1) Pneumonia Status: Acute (2) Wound infection Status: Acute (3) Back pain Status: Acute (4) Weakness Status: Acute - Assessment and Plan (Free Text) Plan: continue iv antibiotics..locall wound care. triphasic bone scan is negative
[2017-02-03 09:40] LABS: BASO # 0.02 K/mm3 (0.0-2.0); BASO % 0.3 % (0.0-3.0); EOS # 0.2 (0.0-0.7); EOS % 3.5 % (1.5-5.0); GRAN # 4.13 (1.4-6.5); GRAN % 60.2 % (50.0-68.0); LYMPH # 1.8 (1.2-3.4); LYMPH % 25.9 % (22.0-35.0); MEAN CELL VOLUME 82.2 fL (80.0-105.0); MEAN CORPUSCULAR HEMOGLOBIN 26.4 pg (25.0-35.0); MEAN CORPUSCULAR HGB CONC 32.2 g/dl (31.0-37.0); MEAN PLATELET VOLUME 9.2 fl (7.0-11.0); MONO # 0.7 (0.1-0.6); MONO % 10.1 % (1.0-6.0); PLATELET COUNT 148 10^3/uL (120.0-450.0); RBC 4.16 10^6/uL (3.5-6.1); WHITE BLOOD COUNT 6.9 10^3/ul (4.5-11.0)
--- NOTE | 2017-02-03 09:43 | CP.PCM.PN ---
Subjective - Date & Time of Evaluation Date of Evaluation: 02/02/17 Time of Evaluation: 18:00 - Subjective Subjective: feel better walking without cane on iv antibiotics, bone scan result triphasic negative Objective - Vital Signs/Intake and Output Vital Signs (last 24 hours): Temp Pulse Resp BP Pulse Ox 97.7 F 53 L 20 167/80 H 96 02/03/17 08:00 02/03/17 09:23 02/03/17 08:00 02/03/17 09:24 02/03/17 08:00 Intake and Output: 02/03/17 02/03/17 06:59 18:59 Intake Total 720 400 Balance 720 400 - Medications Medications: Current Medications Atorvastatin Calcium (Lipitor) 40 mg PO DIN [facility] Last Admin: 02/02/17 19:18 Dose: 40 mg Bacitracin (Bacitracin) 1 ea TOP BID [facility] Last Admin: 02/03/17 09:24 Dose: 1 ea Clonazepam (Klonopin) 1 mg PO BID [facility] Stop: 02/06/17 08:00 Last Admin: 02/03/17 09:23 Dose: 1 mg Clopidogrel Bisulfate (Plavix) 75 mg PO DAILY [facility] Last Admin: 02/03/17 09:24 Dose: 75 mg Meropenem 1g/NS 100mL IVPB (Meropenem 1g/Ns 100ml Ivpb) 1 gm in 100 mls @ 100 mls/hr IVPB Q8 [facility] PRN Reason: Protocol Stop: 02/07/17 14:01 Last Admin: 02/03/17 05:18 Dose: 100 mls/hr Vancomycin HCl (Vancomycin 1gm) 1 gm in 250 mls @ 167 mls/hr IVPB Q12H [facility] PRN Reason: Protocol Stop: 02/07/17 10:31 Last Admin: 02/02/17 22:50 Dose: 167 mls/hr Sodium Chloride (Sodium Chloride 0.45%) 1,000 mls @ 75 mls/hr IV .[id number] [facility] Last Admin: 02/02/17 15:01 Dose: Not Given Metformin HCl (Glucophage) 500 mg PO BID [facility] Last Admin: 02/03/17 09:23 Dose: 500 mg Methadone HCl (Methadone) 40 mg PO DAILY [facility] Last Admin: 02/03/17 09:24 Dose: 40 mg Methadone HCl (Methadone) 30 mg PO DIN [facility] Last Admin: 02/02/17 19:18 Dose: 30 mg Metoprolol Succinate (Toprol Xl) 50 mg PO DAILY [facility] Last Admin: 02/03/17 09:23 Dose: 50 mg Pantoprazole Sodium (Protonix Ec Tab) 40 mg PO ACB [facility] Last Admin: 02/02/17 09:01 Dose: 40 mg Polyethylene Glycol (Miralax) 17 gm PO DAILY [facility] Last Admin: 02/03/17 09:20 Dose: 17 gm Ramipril (Altace) 2.5 mg PO DAILY [facility] Last Admin: 02/03/17 09:24 Dose: 2.5 mg Sitagliptin Phosphate (Januvia) 100 mg PO DAILY [facility] Last Admin: 02/02/17 09:09 Dose: 100 mg - Constitutional Appears: Non-toxic - Head Exam Head Exam: ATRAUMATIC, NORMAL INSPECTION, NORMOCEPHALIC - Eye Exam Eye Exam: EOMI, Normal appearance Pupil Exam: NORMAL ACCOMODATION, PERRL - ENT Exam ENT Exam: Mucous Membranes Moist, Normal Exam - Respiratory Exam Respiratory Exam: Clear to Ausculation Bilateral, NORMAL BREATHING PATTERN - Cardiovascular Exam Cardiovascular Exam: REGULAR RHYTHM, +S1, +S2. absent: Murmur - GI/Abdominal Exam GI & Abdominal Exam: Soft, Normal Bowel Sounds. absent: Tenderness - Rectal Exam Rectal Exam: Deferred - Exam External exam: NORMAL EXTERNAL EXAM - Extremities Exam Extremities Exam: Full ROM, Normal Capillary Refill, Normal Inspection. absent : Joint Swelling, Pedal Edema - Back Exam Back Exam: NORMAL INSPECTION Additional comments: skin on thoracic spine mid line is less discharge - Neurological Exam Neurological Exam: Abnormal Gait, Alert, Awake, CN II-XII Intact, Reflexes Normal Assessment and Plan (1) Pneumonia Status: Acute (2) Wound infection Status: Acute (3) Back pain Status: Acute (4) Weakness Status: Acute - Assessment and Plan (Free Text) Plan: continue current treatment will need 4 weeks antibiotics, consults reviewed , labs radiology reports reviewed,
[2017-02-03 09:45] LABS: ALB/GLOB RATIO 0.9 (1.1-1.8); ALBUMIN 3.6 g/dL (3.0-4.8); ALT/SGPT 52 U/L (7-56); AST/SGOT 53 U/L (15-59); BLOOD UREA NITROGEN 25 mg/dL (7-21); CALCIUM 9.1 mg/dL (8.4-10.5); GFR AFRICAN-AMERICAN > 60; GFR NON-AFRICAN AMERICAN > 60
[2017-02-03] MEDS: Vancomycin 1gm in NS 250ml 1 GM/250 ML BAG IVPB SCH ×2 (09:48→22:50)
--- NOTE | 2017-02-03 15:14 | PN ---
PULMONARY PROGRESS NOTE DATE: 02/03/2017 SUBJECTIVELY: He is out of bed to chair. Family is at bedside. Night was unremarkable. No headache, no rhinitis, no cough, no sputum production, no nausea, vomiting or diarrhea, no leg swelling. OBJECTIVE: GENERAL: No acute distress. VITAL SIGNS: Temperature is 98, heart rate is 53, respiratory rate is 20, blood pressure 167/80, pulse ox 96 %on room air. HEENT: Moist mucous membranes. Crowded airway. NECK: Supple. No JVD. LUNGS: Few rhonchi in the right lung base. HEART: S1 and S2. BACK: Upper back spine wound has a dressing. ABDOMEN: Soft, nontender, no organomegaly. EXTREMITIES: No edema. NEUROLOGIC: Awake and alert. Follows simple commands. MEDICATIONS: The patient is on Altace 2.5 mg daily, bacitracin ointment to affected area twice a day, metformin 500 mg twice a day, Januvia 100 mg daily, Klonopin 1 mg twice a day, Lipitor 40 mg daily, meropenem 1 g IV q.8 hours, methadone 30 mg daily, MiraLax 17 g daily, Plavix 75 mg daily, Protonix 40 mg daily, IV fluid half normal saline 75 mL/hour, Toprol-XL 50 mg daily, vancomycin 1 g IV q.12 hours. LABORATORY DATA: Shows hemoglobin 11.0, hematocrit 34.2, WBC 6.9, platelet are 148. Sodium 139, potassium 4.8, chloride 99, bicarbonate 31, BUN 25, creatinine 0.9, glucose 133, AST 53, ALT 52, alkaline phosphatase is 110, albumin is 3.6. Microbiology blood cultures are negative. Spine wound culture has MRSA. 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 First need to assure that this is just not an infection. I order PA and lateral chest x-ray today. We will follow up. We will continue follow to assure the stability of this infiltrate, if persistent will need biopsy at some point. Continue gastric and deep venous thrombosis prophylaxis. Antibiotics as per infectious disease. Thank you, and we will followup with you. Kuldip Hernandez MD [facility] # [id number]
[2017-02-03] MEDS: Pantoprazole 40 mg EC Tab PO SCH (15:24)
--- NOTE | 2017-02-03 15:37 | CP.PCM.PN ---
Subjective - Date & Time of Evaluation Date of Evaluation: 02/03/17 Time of Evaluation: 10:30 - Subjective Subjective: Comfortable, less pain in the back, no fevers overnight. Objective - Vital Signs/Intake and Output Vital Signs (last 24 hours): Temp Pulse Resp BP Pulse Ox 97.6 F 52 L 18 116/63 98 02/02/17 16:00 02/02/17 16:00 02/02/17 16:00 02/02/17 16:00 02/02/17 16:00 Intake and Output: 02/03/17 02/03/17 06:59 18:59 Intake Total 720 Balance 720 - Medications Medications: Current Medications Atorvastatin Calcium (Lipitor) 40 mg PO DIN [facility] Last Admin: 02/02/17 19:18 Dose: 40 mg Bacitracin (Bacitracin) 1 ea TOP BID [facility] Last Admin: 02/02/17 19:18 Dose: 1 ea Clonazepam (Klonopin) 1 mg PO BID [facility] Stop: 02/06/17 08:00 Last Admin: 02/02/17 19:18 Dose: 1 mg Clopidogrel Bisulfate (Plavix) 75 mg PO DAILY [facility] Last Admin: 02/02/17 09:09 Dose: 75 mg Meropenem 1g/NS 100mL IVPB (Meropenem 1g/Ns 100ml Ivpb) 1 gm in 100 mls @ 100 mls/hr IVPB Q8 [facility] PRN Reason: Protocol Stop: 02/07/17 14:01 Last Admin: 02/03/17 05:18 Dose: 100 mls/hr Vancomycin HCl (Vancomycin 1gm) 1 gm in 250 mls @ 167 mls/hr IVPB Q12H [facility] PRN Reason: Protocol Stop: 02/07/17 10:31 Last Admin: 02/02/17 22:50 Dose: 167 mls/hr Sodium Chloride (Sodium Chloride 0.45%) 1,000 mls @ 75 mls/hr IV .[id number] [facility] Last Admin: 02/02/17 15:01 Dose: Not Given Metformin HCl (Glucophage) 500 mg PO BID [facility] Last Admin: 02/02/17 19:18 Dose: 500 mg Methadone HCl (Methadone) 40 mg PO DAILY [facility] Last Admin: 02/02/17 09:09 Dose: 40 mg Methadone HCl (Methadone) 30 mg PO DIN [facility] Last Admin: 02/02/17 19:18 Dose: 30 mg Metoprolol Succinate (Toprol Xl) 50 mg PO DAILY [facility] Last Admin: 02/02/17 09:10 Dose: 50 mg Pantoprazole Sodium (Protonix Ec Tab) 40 mg PO ACB [facility] Last Admin: 02/02/17 09:01 Dose: 40 mg Polyethylene Glycol (Miralax) 17 gm PO DAILY [facility] Last Admin: 02/02/17 09:17 Dose: Not Given Ramipril (Altace) 2.5 mg PO DAILY [facility] Last Admin: 02/02/17 09:17 Dose: Not Given Sitagliptin Phosphate (Januvia) 100 mg PO DAILY [facility] Last Admin: 02/02/17 09:09 Dose: 100 mg - Constitutional Appears: Non-toxic, No Acute Distress - Head Exam Head Exam: NORMAL INSPECTION - ENT Exam ENT Exam: Mucous Membranes Moist - Neck Exam Neck Exam: absent: Meningismus - Respiratory Exam Respiratory Exam: Decreased Breath Sounds - Cardiovascular Exam Cardiovascular Exam: +S1, +S2 - GI/Abdominal Exam GI & Abdominal Exam: Soft. absent: Tenderness Assessment and Plan - Assessment and Plan (Free Text) Plan: Assessment Consider skin and skin structure infection at the site of previous laminectomy and hardware placement (reviewed CT scan of the thoracic spine and no evidence of deeper infection noted) - growing MRSA - was previously treated on 2016 for Skin and skin structure infection of similar area with at least 4 weeks of antibiotics; on WBC scan, no evidence of deeper infection (ie. no evidence of infection of the vertebrae); patient also has HCAP history MRSA bacteremia with discitis and osteomyelitis S/P decompression laminectomy history of Cholelithiasis S/P cholecystectomy coronary artery disease hypertension diabetes mellitus dementia history of right foot osteomyelitis and amputation of right second toe CAD S/P PCI with cardiac stents placed and coronary bypass graft Plan continue Vancomycin and Merrem (day 5-6 of antibiotics) to complete 7-10 days
[2017-02-04] MEDS: Meropenem 1g/NS 100mL IVPB 1 GM/100 ML PIGGYBACK IVPB SCH ×3 (06:51→21:33)
[2017-02-04] MEDS: Pantoprazole 40 mg EC Tab PO SCH (08:30)
--- NOTE | 2017-02-04 09:07 | CP.PCM.PN ---
Subjective - Date & Time of Evaluation Date of Evaluation: 02/03/17 Time of Evaluation: 18:00 - Subjective Subjective: feel better still need iv vanco/meropenem. as per id , c/o iv fluid site. no fever walking around Objective - Vital Signs/Intake and Output Vital Signs (last 24 hours): Temp Pulse Resp BP Pulse Ox 97.7 F 48 L 20 151/90 H 96 02/04/17 07:55 02/04/17 07:55 02/04/17 07:55 02/04/17 07:55 02/04/17 07:55 Intake and Output: 02/04/17 02/04/17 06:59 18:59 Intake Total 720 Balance 720 - Medications Medications: Current Medications Atorvastatin Calcium (Lipitor) 40 mg PO DIN [facility] Last Admin: 02/03/17 16:58 Dose: 40 mg Bacitracin (Bacitracin) 1 ea TOP BID [facility] Last Admin: 02/03/17 17:03 Dose: 1 ea Clonazepam (Klonopin) 1 mg PO BID [facility] Stop: 02/06/17 08:00 Last Admin: 02/03/17 16:59 Dose: 1 mg Clopidogrel Bisulfate (Plavix) 75 mg PO DAILY [facility] Last Admin: 02/03/17 09:24 Dose: 75 mg Meropenem 1g/NS 100mL IVPB (Meropenem 1g/Ns 100ml Ivpb) 1 gm in 100 mls @ 100 mls/hr IVPB Q8 [facility] PRN Reason: Protocol Stop: 02/07/17 14:01 Last Admin: 02/04/17 06:51 Dose: 100 mls/hr Vancomycin HCl (Vancomycin 1gm) 1 gm in 250 mls @ 167 mls/hr IVPB Q12H [facility] PRN Reason: Protocol Stop: 02/07/17 10:31 Last Admin: 02/03/17 22:50 Dose: 167 mls/hr Metformin HCl (Glucophage) 500 mg PO BID [facility] Last Admin: 02/03/17 16:59 Dose: 500 mg Methadone HCl (Methadone) 40 mg PO DAILY [facility] Methadone HCl (Methadone) 30 mg PO 1700 [facility] Metoprolol Succinate (Toprol Xl) 50 mg PO DAILY [facility] Last Admin: 02/03/17 09:23 Dose: 50 mg Pantoprazole Sodium (Protonix Ec Tab) 40 mg PO ACB [facility] Last Admin: 02/04/17 08:30 Dose: 40 mg Polyethylene Glycol (Miralax) 17 gm PO DAILY [facility] Last Admin: 02/03/17 09:20 Dose: 17 gm Ramipril (Altace) 2.5 mg PO DAILY [facility] Last Admin: 02/03/17 09:24 Dose: 2.5 mg Sitagliptin Phosphate (Januvia) 100 mg PO DAILY [facility] Last Admin: 02/03/17 09:48 Dose: 100 mg - Labs Labs: 02/03/17 09:30 02/03/17 09:30 - Constitutional Appears: Well - Head Exam Head Exam: ATRAUMATIC, NORMAL INSPECTION, NORMOCEPHALIC - Eye Exam Eye Exam: EOMI, Normal appearance, PERRL Pupil Exam: NORMAL ACCOMODATION, PERRL - ENT Exam ENT Exam: Mucous Membranes Moist, Normal Exam - Neck Exam Neck Exam: Full ROM, Normal Inspection. absent: Lymphadenopathy - Respiratory Exam Respiratory Exam: Clear to Ausculation Bilateral, NORMAL BREATHING PATTERN - GI/Abdominal Exam GI & Abdominal Exam: Soft, Normal Bowel Sounds. absent: Tenderness - Rectal Exam Rectal Exam: Deferred - Neurological Exam Neurological Exam: Alert, Awake, CN II-XII Intact, Oriented x3 - Psychiatric Exam Psychiatric exam: Normal Affect, Normal Mood - Skin Additional comments: back site thoracic area covered with gauze, Assessment and Plan (1) Pneumonia Status: Acute (2) Wound infection Status: Acute (3) Back pain Status: Acute (4) Weakness Status: Acute - Assessment and Plan (Free Text) Plan: continue current treatment, reviewed meds, will d/c iv fluid, will need total 7 -10 days of antibiotics, discussed with patient in detail
[2017-02-04] MEDS: Bacitracin 500 Units/gm Oint Foilpak UD TOP SCH ×2 (09:35→18:34)
[2017-02-04] MEDS: POLYETHYLENE GLYCOL 3350 17 GM/Dose PACKET PO SCH (09:37)
[2017-02-04] MEDS: Vancomycin 1gm in NS 250ml 1 GM/250 ML BAG IVPB SCH (09:37)
[2017-02-04] MEDS: Metoprolol Succinate 50 mg XL Tab PO SCH (09:37)
--- NOTE | 2017-02-04 12:11 | CP.PCM.PN ---
Subjective - Date & Time of Evaluation Date of Evaluation: 02/04/17 Time of Evaluation: 10:40 - Subjective Subjective: Comfortable in bed, feeling better, no nausea or vomiting, no diarrhea. No fevers overnight. Objective - Vital Signs/Intake and Output Vital Signs (last 24 hours): Temp Pulse Resp BP Pulse Ox 97.5 F L 56 L 20 137/59 L 98 02/03/17 16:00 02/03/17 16:00 02/03/17 16:00 02/03/17 16:00 02/03/17 16:00 Intake and Output: 02/03/17 02/04/17 18:59 06:59 Intake Total 1000 720 Balance 1000 720 - Medications Medications: Current Medications Atorvastatin Calcium (Lipitor) 40 mg PO DIN [facility] Last Admin: 02/03/17 16:58 Dose: 40 mg Bacitracin (Bacitracin) 1 ea TOP BID [facility] Last Admin: 02/03/17 17:03 Dose: 1 ea Clonazepam (Klonopin) 1 mg PO BID [facility] Stop: 02/06/17 08:00 Last Admin: 02/03/17 16:59 Dose: 1 mg Clopidogrel Bisulfate (Plavix) 75 mg PO DAILY [facility] Last Admin: 02/03/17 09:24 Dose: 75 mg Meropenem 1g/NS 100mL IVPB (Meropenem 1g/Ns 100ml Ivpb) 1 gm in 100 mls @ 100 mls/hr IVPB Q8 [facility] PRN Reason: Protocol Stop: 02/07/17 14:01 Last Admin: 02/04/17 06:51 Dose: 100 mls/hr Vancomycin HCl (Vancomycin 1gm) 1 gm in 250 mls @ 167 mls/hr IVPB Q12H [facility] PRN Reason: Protocol Stop: 02/07/17 10:31 Last Admin: 02/03/17 22:50 Dose: 167 mls/hr Metformin HCl (Glucophage) 500 mg PO BID [facility] Last Admin: 02/03/17 16:59 Dose: 500 mg Methadone HCl (Methadone) 40 mg PO DAILY [facility] Methadone HCl (Methadone) 30 mg PO 1700 [facility] Metoprolol Succinate (Toprol Xl) 50 mg PO DAILY [facility] Last Admin: 02/03/17 09:23 Dose: 50 mg Pantoprazole Sodium (Protonix Ec Tab) 40 mg PO ACB [facility] Last Admin: 02/03/17 15:24 Dose: 40 mg Polyethylene Glycol (Miralax) 17 gm PO DAILY [facility] Last Admin: 02/03/17 09:20 Dose: 17 gm Ramipril (Altace) 2.5 mg PO DAILY [facility] Last Admin: 02/03/17 09:24 Dose: 2.5 mg Sitagliptin Phosphate (Januvia) 100 mg PO DAILY [facility] Last Admin: 02/03/17 09:48 Dose: 100 mg - Labs Labs: 02/03/17 09:30 02/03/17 09:30 - Constitutional Appears: Non-toxic, No Acute Distress - Head Exam Head Exam: NORMAL INSPECTION - ENT Exam ENT Exam: Mucous Membranes Moist - Neck Exam Neck Exam: absent: Meningismus - Respiratory Exam Respiratory Exam: Decreased Breath Sounds - Cardiovascular Exam Cardiovascular Exam: +S1, +S2 - GI/Abdominal Exam GI & Abdominal Exam: Soft. absent: Tenderness Assessment and Plan - Assessment and Plan (Free Text) Plan: Assessment Consider skin and skin structure infection at the site of previous laminectomy and hardware placement (reviewed CT scan of the thoracic spine and no evidence of deeper infection noted) - growing MRSA - was previously treated on 2016 for Skin and skin structure infection of similar area with at least 4 weeks of antibiotics; on WBC scan, no evidence of deeper infection (ie. no evidence of infection of the vertebrae); patient also has HCAP history MRSA bacteremia with discitis and osteomyelitis S/P decompression laminectomy history of Cholelithiasis S/P cholecystectomy coronary artery disease hypertension diabetes mellitus dementia history of right foot osteomyelitis and amputation of right second toe CAD S/P PCI with cardiac stents placed and coronary bypass graft Plan continue Vancomycin and Merrem (day 6-7 of antibiotics) to complete 7-10 days; after that, he can be switched to PO Doxycycline for another 7 days
--- NOTE | 2017-02-04 19:48 | CP.PCM.PN ---
Subjective - Date & Time of Evaluation Date of Evaluation: 02/04/17 Time of Evaluation: 18:00 - Subjective Subjective: feel ok , no new c/o walking without cane, no sob, no chest pain , no nvd Objective - Vital Signs/Intake and Output Vital Signs (last 24 hours): Temp Pulse Resp BP Pulse Ox 97.7 F 52 L 18 138/85 97 02/04/17 16:00 02/04/17 16:00 02/04/17 16:00 02/04/17 16:00 02/04/17 16:00 Intake and Output: 02/04/17 02/05/17 18:59 06:59 Intake Total 900 Output Total 201 Balance 699 - Medications Medications: Current Medications Atorvastatin Calcium (Lipitor) 40 mg PO DIN [facility] Last Admin: 02/04/17 18:35 Dose: 40 mg Bacitracin (Bacitracin) 1 ea TOP BID [facility] Last Admin: 02/04/17 18:34 Dose: 1 ea Clonazepam (Klonopin) 1 mg PO BID [facility] Stop: 02/06/17 08:00 Last Admin: 02/04/17 18:35 Dose: 1 mg Clopidogrel Bisulfate (Plavix) 75 mg PO DAILY [facility] Last Admin: 02/04/17 09:37 Dose: 75 mg Meropenem 1g/NS 100mL IVPB (Meropenem 1g/Ns 100ml Ivpb) 1 gm in 100 mls @ 100 mls/hr IVPB Q8 [facility] PRN Reason: Protocol Stop: 02/07/17 14:01 Last Admin: 02/04/17 13:50 Dose: 100 mls/hr Vancomycin HCl (Vancomycin 1gm) 1 gm in 250 mls @ 167 mls/hr IVPB Q12H [facility] PRN Reason: Protocol Stop: 02/07/17 10:31 Last Admin: 02/04/17 09:37 Dose: 167 mls/hr Metformin HCl (Glucophage) 500 mg PO BID [facility] Last Admin: 02/04/17 18:35 Dose: 500 mg Methadone HCl (Methadone) 40 mg PO DAILY [facility] Last Admin: 02/04/17 09:36 Dose: 40 mg Methadone HCl (Methadone) 30 mg PO 1700 [facility] Last Admin: 02/04/17 18:35 Dose: 30 mg Metoprolol Succinate (Toprol Xl) 50 mg PO DAILY [facility] Last Admin: 02/04/17 09:37 Dose: Not Given Pantoprazole Sodium (Protonix Ec Tab) 40 mg PO ACB [facility] Last Admin: 02/04/17 08:30 Dose: 40 mg Polyethylene Glycol (Miralax) 17 gm PO DAILY [facility] Last Admin: 02/04/17 09:37 Dose: 17 gm Ramipril (Altace) 2.5 mg PO DAILY [facility] Last Admin: 02/04/17 09:35 Dose: 2.5 mg Sitagliptin Phosphate (Januvia) 100 mg PO DAILY [facility] Last Admin: 02/04/17 09:35 Dose: 100 mg - Labs Labs: 02/03/17 09:30 02/03/17 09:30 - Constitutional Appears: Well - Head Exam Head Exam: ATRAUMATIC, NORMAL INSPECTION, NORMOCEPHALIC - Eye Exam Eye Exam: EOMI, Normal appearance, PERRL - ENT Exam ENT Exam: Mucous Membranes Moist, Normal Exam - Neck Exam Neck Exam: Full ROM, Normal Inspection. absent: Lymphadenopathy - Respiratory Exam Respiratory Exam: Clear to Ausculation Bilateral, NORMAL BREATHING PATTERN - Cardiovascular Exam Cardiovascular Exam: REGULAR RHYTHM, +S1, +S2. absent: Murmur - GI/Abdominal Exam GI & Abdominal Exam: Soft, Normal Bowel Sounds. absent: Tenderness - Rectal Exam Rectal Exam: Deferred - Neurological Exam Neurological Exam: Alert, Awake, CN II-XII Intact, Oriented x3 - Psychiatric Exam Psychiatric exam: Normal Affect, Normal Mood - Skin Skin Exam: Normal Color Additional comments: back wound small discharge Assessment and Plan (1) Pneumonia Status: Acute (2) Wound infection Status: Acute (3) Back pain Status: Acute (4) Weakness Status: Acute - Assessment and Plan (Free Text) Plan: continue iv antibiotics ,vanco/ meropenenem, locall wound dressing
--- NOTE | 2017-02-05 00:58 | PN ---
DATE: 02/04/2017 REFERRING PHYSICIAN: Dr. Guerra. SUBJECTIVE: He is ambulating in the room. Night was unremarkable. No headache, no rhinitis. No nausea, no vomiting, no diarrhea. No leg pain, no leg swelling. Still has some upper back pain. PHYSICAL EXAMINATION: GENERAL: No acute distress. VITAL SIGNS: Temperature is 98, heart rate is 52, respiratory rate is 20, blood pressure 138/85 and pulse oximetry is 97% on room air. HEENT: Moist mucous membranes. . NECK: Supple. No JVD. LUNGS: Has fair airflow with few rhonchi. HEART: S1 and S2. ABDOMEN: Soft and nontender. No organomegaly. EXTREMITIES: No edema. NEUROLOGIC: Awake and alert. Follows simple commands. MEDICATIONS: He is on Altace 2.5 mg daily, bacitracin ointment to affected area twice a day, metformin 500 mg twice a day, Januvia mg daily, Klonopin 1 mg twice a day, Lipitor 40 mg daily, meropenem 1 g IV q. 8 hours, methadone 70 mg daily, MiraLax 17 g daily, Plavix 75 mg daily, Protonix 40 mg daily, Toprol-XL 50 mg daily and vancomycin 1 g IV q. 12 hours. LABORATORY DATA: Reviewed. Blood sugar is 116. 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 Chest x-ray, PA and lateral was ordered. The patient refused to get it done, understands risks. Continue antibiotics, bronchodilator, should have followup x-ray to assure the stability of infiltrate. Thank you, and we will follow with you. Kuldip Hernandez MD
[2017-02-05] MEDS: Vancomycin 1gm in NS 250ml 1 GM/250 ML BAG IVPB SCH (03:48)
[2017-02-05] MEDS: Meropenem 1g/NS 100mL IVPB 1 GM/100 ML PIGGYBACK IVPB SCH ×3 (06:15→21:33)
[2017-02-05] MEDS: Pantoprazole 40 mg EC Tab PO SCH (07:54)
[2017-02-05] MEDS: POLYETHYLENE GLYCOL 3350 17 GM/Dose PACKET PO SCH (09:12)
[2017-02-05] MEDS: Bacitracin 500 Units/gm Oint Foilpak UD TOP SCH ×2 (09:16→18:39)
[2017-02-05] MEDS: Metoprolol Succinate 50 mg XL Tab PO SCH (09:17)
[2017-02-05] MEDS: Vancomycin 750mg 750 MG/250 ML BAG IVPB SCH ×2 (09:37→20:00)
--- NOTE | 2017-02-05 14:19 | CP.PCM.PN ---
Subjective - Date & Time of Evaluation Date of Evaluation: 02/05/17 Time of Evaluation: 10:30 - Subjective Subjective: Comfortable in bed, not in distress, afebrile. Objective - Vital Signs/Intake and Output Vital Signs (last 24 hours): Temp Pulse Resp BP Pulse Ox 97.7 F 52 L 18 138/85 97 02/04/17 16:00 02/04/17 16:00 02/04/17 16:00 02/04/17 16:00 02/04/17 16:00 Intake and Output: 02/05/17 02/05/17 06:59 18:59 Intake Total 1200 Balance 1200 - Medications Medications: Current Medications Atorvastatin Calcium (Lipitor) 40 mg PO DIN [facility] Last Admin: 02/04/17 18:35 Dose: 40 mg Bacitracin (Bacitracin) 1 ea TOP BID [facility] Last Admin: 02/04/17 18:34 Dose: 1 ea Clonazepam (Klonopin) 1 mg PO BID [facility] Stop: 02/06/17 08:00 Last Admin: 02/04/17 18:35 Dose: 1 mg Clopidogrel Bisulfate (Plavix) 75 mg PO DAILY [facility] Last Admin: 02/04/17 09:37 Dose: 75 mg Meropenem 1g/NS 100mL IVPB (Meropenem 1g/Ns 100ml Ivpb) 1 gm in 100 mls @ 100 mls/hr IVPB Q8 [facility] PRN Reason: Protocol Stop: 02/07/17 14:01 Last Admin: 02/05/17 06:15 Dose: 100 mls/hr Vancomycin HCl (Vancomycin 750 Mg In Ns) 750 mg in 250 mls @ 167 mls/hr IVPB Q12H [facility] PRN Reason: Protocol Metformin HCl (Glucophage) 500 mg PO BID [facility] Last Admin: 02/04/17 18:35 Dose: 500 mg Methadone HCl (Methadone) 40 mg PO DAILY [facility] Last Admin: 02/04/17 09:36 Dose: 40 mg Methadone HCl (Methadone) 30 mg PO 1700 [facility] Last Admin: 02/04/17 18:35 Dose: 30 mg Metoprolol Succinate (Toprol Xl) 50 mg PO DAILY [facility] Last Admin: 02/04/17 09:37 Dose: Not Given Pantoprazole Sodium (Protonix Ec Tab) 40 mg PO ACB [facility] Last Admin: 02/04/17 08:30 Dose: 40 mg Polyethylene Glycol (Miralax) 17 gm PO DAILY [facility] Last Admin: 02/04/17 09:37 Dose: 17 gm Ramipril (Altace) 2.5 mg PO DAILY [facility] Last Admin: 02/04/17 09:35 Dose: 2.5 mg Sitagliptin Phosphate (Januvia) 100 mg PO DAILY [facility] Last Admin: 02/04/17 09:35 Dose: 100 mg - Labs Labs: 02/03/17 09:30 02/03/17 09:30 - Constitutional Appears: Non-toxic, No Acute Distress - Head Exam Head Exam: NORMAL INSPECTION - ENT Exam ENT Exam: Mucous Membranes Moist - Neck Exam Neck Exam: absent: Meningismus - Respiratory Exam Respiratory Exam: Decreased Breath Sounds - Cardiovascular Exam Cardiovascular Exam: +S1, +S2 - GI/Abdominal Exam GI & Abdominal Exam: Soft. absent: Tenderness Assessment and Plan - Assessment and Plan (Free Text) Plan: Assessment Consider skin and skin structure infection at the site of previous laminectomy and hardware placement (reviewed CT scan of the thoracic spine and no evidence of deeper infection noted) - growing MRSA - was previously treated on 2016 for Skin and skin structure infection of similar area with at least 4 weeks of antibiotics; on WBC scan, no evidence of deeper infection (ie. no evidence of infection of the vertebrae); patient also has HCAP history MRSA bacteremia with discitis and osteomyelitis S/P decompression laminectomy history of Cholelithiasis S/P cholecystectomy coronary artery disease hypertension diabetes mellitus dementia history of right foot osteomyelitis and amputation of right second toe CAD S/P PCI with cardiac stents placed and coronary bypass graft Plan continue Vancomycin and Merrem (day 7-8 of antibiotics) to complete 7-10 days; after that, he can be switched to PO Doxycycline for another 7 days after the IV therapy
--- NOTE | 2017-02-05 23:04 | PN ---
PULMONARY PROGRESS NOTE REFERRING PHYSICIAN: Dr. Coe DATE OF SERVICE: 02/05/2017 SUBJECTIVE: He is sitting up in a chair. Night was unremarkable. No headaches. No rhinitis. No nausea, no vomiting, no diarrhea. No leg pain or leg swelling. Refused to do chest x-ray. PHYSICAL EXAMINATION: GENERAL: No acute distress. VITAL SIGNS: Temperature 98, heart rate is 56, respiratory rate is 20, blood pressure 131/70, pulse ox is 96% on room air. HEENT: Moist mucous membranes. *------*. NECK: Supple. No JVD. HEART: S1 and S2. LUNGS: Fair airflow with a few rhonchi. ABDOMEN: Soft, nontender, no organomegaly. EXTREMITIES: There is no edema. Upper back of the spine has a dressing and a nonhealing ulcer. LABORATORY DATA: Blood sugar was 93. MEDICATIONS: He is on Altace 2.5 mg daily, bacitracin ointment twice a day, metformin 500 mg twice a day, Januvia 100 mg daily, Klonopin 1 mg twice a day, Lipitor 40 mg daily, meropenem 1 g q. 8 hours, methadone 70 mg daily, MiraLax 17 g daily, Plavix 75 mg daily, Protonix 40 mg daily, Toprol-XL 50 mg daily, vancomycin 750 mg q. 12 hours. 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 The patient needs followup x-ray. He refused x-ray and discussed risks and benefits ratio. I want to make sure there is no increase in size of the infiltrate to assure there is no malignancy. Continue antibiotics, bronchodilator,fall precaution. The patient is asked to stop smoking. Thank you and we will follow with you. Kuldip Hernandez MD
[2017-02-06] MEDS: Meropenem 1g/NS 100mL IVPB 1 GM/100 ML PIGGYBACK IVPB SCH ×3 (06:50→21:47)
[2017-02-06] MEDS: POLYETHYLENE GLYCOL 3350 17 GM/Dose PACKET PO SCH (09:36)
[2017-02-06] MEDS: Pantoprazole 40 mg EC Tab PO SCH (09:40)
[2017-02-06] MEDS: Metoprolol Succinate 50 mg XL Tab PO SCH (09:47)
[2017-02-06] MEDS: Bacitracin 500 Units/gm Oint Foilpak UD TOP SCH ×2 (10:05→17:26)
--- NOTE | 2017-02-06 14:11 | CP.PCM.PN ---
Subjective - Date & Time of Evaluation Date of Evaluation: 02/06/17 Time of Evaluation: 13:05 - Subjective Subjective: Comfortable in bed, not in distress. No fevers. Objective - Vital Signs/Intake and Output Vital Signs (last 24 hours): Temp Pulse Resp BP Pulse Ox 97.8 F 53 L 18 96/53 L 96 02/06/17 08:23 02/06/17 08:23 02/06/17 08:23 02/05/17 16:00 02/06/17 08:23 Intake and Output: 02/06/17 02/06/17 06:59 18:59 Intake Total 1020 Balance 1020 - Medications Medications: Current Medications Atorvastatin Calcium (Lipitor) 40 mg PO DIN [facility] Last Admin: 02/05/17 16:49 Dose: 40 mg Bacitracin (Bacitracin) 1 ea TOP BID [facility] Last Admin: 02/05/17 18:39 Dose: 1 ea Clopidogrel Bisulfate (Plavix) 75 mg PO DAILY [facility] Last Admin: 02/05/17 09:16 Dose: 75 mg Meropenem 1g/NS 100mL IVPB (Meropenem 1g/Ns 100ml Ivpb) 1 gm in 100 mls @ 100 mls/hr IVPB Q8 [facility] PRN Reason: Protocol Stop: 02/07/17 14:01 Last Admin: 02/06/17 06:50 Dose: 100 mls/hr Vancomycin HCl (Vancomycin 750 Mg In Ns) 750 mg in 250 mls @ 167 mls/hr IVPB Q12H [facility] PRN Reason: Protocol Last Admin: 02/05/17 20:00 Dose: 167 mls/hr Metformin HCl (Glucophage) 500 mg PO BID [facility] Last Admin: 02/05/17 18:39 Dose: 500 mg Methadone HCl (Methadone) 40 mg PO DAILY [facility] Last Admin: 02/05/17 09:17 Dose: 40 mg Methadone HCl (Methadone) 30 mg PO 1700 [facility] Last Admin: 02/05/17 18:38 Dose: 30 mg Metoprolol Succinate (Toprol Xl) 50 mg PO DAILY [facility] Last Admin: 02/05/17 09:17 Dose: 50 mg Pantoprazole Sodium (Protonix Ec Tab) 40 mg PO ACB [facility] Last Admin: 02/05/17 07:54 Dose: 40 mg Polyethylene Glycol (Miralax) 17 gm PO DAILY [facility] Last Admin: 02/05/17 09:12 Dose: 17 gm Ramipril (Altace) 2.5 mg PO DAILY [facility] Last Admin: 02/05/17 09:12 Dose: 2.5 mg Sitagliptin Phosphate (Januvia) 100 mg PO DAILY [facility] Last Admin: 02/05/17 09:12 Dose: 100 mg - Labs Labs: 02/03/17 09:30 02/03/17 09:30 - Constitutional Appears: Non-toxic, No Acute Distress - Head Exam Head Exam: NORMAL INSPECTION - ENT Exam ENT Exam: Mucous Membranes Moist - Neck Exam Neck Exam: absent: Meningismus - Respiratory Exam Respiratory Exam: Decreased Breath Sounds - Cardiovascular Exam Cardiovascular Exam: +S1, +S2 - GI/Abdominal Exam GI & Abdominal Exam: Soft. absent: Tenderness Assessment and Plan - Assessment and Plan (Free Text) Plan: Assessment Consider skin and skin structure infection at the site of previous laminectomy and hardware placement (reviewed CT scan of the thoracic spine and no evidence of deeper infection noted) - growing MRSA - was previously treated on 2016 for Skin and skin structure infection of similar area with at least 4 weeks of antibiotics; on WBC scan, no evidence of deeper infection (ie. no evidence of infection of the vertebrae); patient also has HCAP - patient is clinically improving history MRSA bacteremia with discitis and osteomyelitis S/P decompression laminectomy history of Cholelithiasis S/P cholecystectomy coronary artery disease hypertension diabetes mellitus dementia history of right foot osteomyelitis and amputation of right second toe CAD S/P PCI with cardiac stents placed and coronary bypass graft Plan continue Vancomycin and Merrem (day 9 of antibiotics) to complete 7-10 days; after that, he can be switched to PO Doxycycline for another 7 days after the IV therapy
--- NOTE | 2017-02-06 14:54 | RAD ---
PROCEDURE: Right Foot Radiographs. HISTORY: DIABETIC RIGHT FOOT ULCER COMPARISON: 11/04/2016 FINDINGS: BONES: Previous amputation of the 2nd toe. Bony erosion of the heads of the 3rd and 4th metatarsals. These findings are chronic JOINTS: Normal. SOFT TISSUES: Normal. OTHER FINDINGS: None. IMPRESSION: No acute findings
[2017-02-06] MEDS: Vancomycin 750mg 750 MG/250 ML BAG IVPB SCH ×2 (15:08→20:16)
--- NOTE | 2017-02-06 16:57 | CON ---
HISTORY OF PRESENT ILLNESS: A 67-year-old male seen at bedside well known to the [facility]ound care team for consultation, evaluation, and management of a chronic diabetic foot ulcer. The patient states that his wound had closed, but noticed drainage on his sock yesterday. 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 PAST SURGICAL HISTORY: Significant for numerous incision and drainage of each foot secondary to diabetic foot infections, second toe amputation, laminectomy, cholecystectomy, and coronary artery bypass graft. HOME MEDICATION: Noted in the EMR. ALLERGIES: THE PATIENT HAS NO KNOWN ALLERGIES. SOCIAL HISTORY: The patient is alone was a former polysubstance abuse. The patient has a history of polysubstance abuse, but has remained for many years. OBJECTIVE: VITAL SIGNS: Temperature 97.8, pulse rate of 53, blood pressure 120/80, and respiratory of 18. EXTREMITIES: Nonpalpable pedal pulses noted bilaterally. Absent heel hair growth noted bilaterally. The patient is unable to detect 5.07 gram monofilament wire testing bilaterally. There is noted to be a non-stageable superficial ulceration at the sub metatarsal head on his right foot. Area is primarily granular minimal serous drainage. There is no purulence to suggestive underlying abscess formation. There is no probing to bone, the area is not edematous or erythematous at this point. LABORATORY FINDINGS Reveal a white count 6.9, hemoglobin 11, hematocrit of 34.2, platelet count of 148. His ESR is elevated at 32. Microbiology; patient is growing methicillin-resistant Staphylococcus aureus from his back wound. ASSESSMENT: Non-stageable superficial diabetic ulceration to his right foot. PLAN: We will order x-rays to rule out osteomyelitis. Wound was cleansed with normal sterile saline and an application of Bactroban and a dry sterile dressing will be applied daily. We will order surgical shoe for the patient ambulating. The patient will be seen and followup daily while in house. Kishan Fry DPM
--- NOTE | 2017-02-06 17:39 | PN ---
DATE: 02/06/2017 PULMONARY PROGRESS NOTE REFERRING PHYSICIAN: Dr. Guerra. SUBJECTIVE: The patient is out of bed to chair. Night was unremarkable. Family is at bedside. No nausea, no vomiting, no diarrhea. No leg pain or leg swelling. OBJECTIVE: GENERAL: No acute distress. VITAL SIGNS: Temperature 98, heart rate is 52, respiratory rate is 18, blood pressure 120/80, pulse ox is 96% on room air. HEENT: Moist mucous membranes. No oral thrush. NECK: Supple. No JVD. LUNGS: Fair airflow with a few rhonchi. HEART: S1 and S2. ABDOMEN: Soft, nontender, no organomegaly. EXTREMITIES: There is no edema. NEUROLOGIC: Awake and alert. Follows simple commands. MEDICATIONS: He is on Altace mg daily, bacitracin ointment to affected area twice a day, metformin 500 mg twice a day, Januvia 100 mg daily, Lipitor 40 mg daily, meropenem 1 g q. 8 hours, methadone 70 mg daily, MiraLax 17 g p.o. daily, Plavix 75 mg daily, metoprolol XL 50 mg daily, vancomycin 750 mg q. 12 hours. LABORATORY DATA: Reviewed. Blood sugar yesterday was 122. Microbiology blood culture has been negative from 01/28. Wound cultures has MRSA and a foot x-ray done today, which shows no acute findings. 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 From the pulmonary point of view, he is doing okay. Continue bronchodilator. Antibiotics as per infectious diseases. Gastric prophylaxis, DVT prophylaxis, fall precaution. Follow up x-ray showed stability of infiltrate. Thank you and we will follow with you. Kuldip Hernandez MD
[2017-02-07] MEDS: Meropenem 1g/NS 100mL IVPB 1 GM/100 ML PIGGYBACK IVPB SCH ×2 (05:16→14:22)
[2017-02-07 09:11] LABS: BASO # 0.04 K/mm3 (0.0-2.0); BASO % 0.5 % (0.0-3.0); EOS # 0.3 (0.0-0.7); EOS % 4.4 % (1.5-5.0); GRAN # 4.71 (1.4-6.5); GRAN % 62.6 % (50.0-68.0); HEMOGLOBIN 11.5 gm/dL (14.0-18.0); LYMPH # 1.9 (1.2-3.4); LYMPH % 25.2 % (22.0-35.0); MEAN CELL VOLUME 82.6 fL (80.0-105.0); MEAN CORPUSCULAR HEMOGLOBIN 26.3 pg (25.0-35.0); MEAN CORPUSCULAR HGB CONC 31.8 g/dl (31.0-37.0); MEAN PLATELET VOLUME 9.3 fl (7.0-11.0); MONO # 0.6 (0.1-0.6); MONO % 7.3 % (1.0-6.0); PLATELET COUNT 115 10^3/uL (120.0-450.0); RBC 4.38 10^6/uL (3.5-6.1); RED CELL DISTRIBUTION WIDTH 17.2 % (11.5-14.5); WHITE BLOOD COUNT 7.5 10^3/ul (4.5-11.0)
[2017-02-07] MEDS: Bacitracin 500 Units/gm Oint Foilpak UD TOP SCH ×2 (09:42→17:45)
[2017-02-07] MEDS: POLYETHYLENE GLYCOL 3350 17 GM/Dose PACKET PO SCH (09:47)
[2017-02-07] MEDS: Pantoprazole 40 mg EC Tab PO SCH (09:47)
[2017-02-07] MEDS: Vancomycin 750mg 750 MG/250 ML BAG IVPB SCH ×2 (09:48→20:15)
[2017-02-07] MEDS: Metoprolol Succinate 50 mg XL Tab PO SCH (09:57)
--- NOTE | 2017-02-07 12:46 | CP.PCM.PN ---
Subjective - Date & Time of Evaluation Date of Evaluation: 02/07/17 Time of Evaluation: 11:40 - Subjective Subjective: Patient feels better, no fevers overnight, not in distress, much improved pain in the back. Objective - Vital Signs/Intake and Output Vital Signs (last 24 hours): Temp Pulse Resp BP Pulse Ox 97.1 F L 48 L 16 136/67 95 02/06/17 16:53 02/06/17 16:53 02/06/17 16:53 02/06/17 16:53 02/06/17 16:53 Intake and Output: 02/07/17 02/07/17 06:59 18:59 Intake Total 1420 Balance 1420 - Medications Medications: Current Medications Atorvastatin Calcium (Lipitor) 40 mg PO DIN [facility] Last Admin: 02/06/17 17:28 Dose: 40 mg Bacitracin (Bacitracin) 1 ea TOP BID [facility] Last Admin: 02/06/17 17:26 Dose: Not Given Clonazepam (Klonopin) 1 mg PO BID [facility] PRN Reason: Protocol Last Admin: 02/06/17 17:32 Dose: 1 mg Clopidogrel Bisulfate (Plavix) 75 mg PO DAILY [facility] Last Admin: 02/06/17 09:37 Dose: 75 mg Meropenem 1g/NS 100mL IVPB (Meropenem 1g/Ns 100ml Ivpb) 1 gm in 100 mls @ 100 mls/hr IVPB Q8 [facility] PRN Reason: Protocol Stop: 02/07/17 14:01 Last Admin: 02/07/17 05:16 Dose: 100 mls/hr Vancomycin HCl (Vancomycin 750 Mg In Ns) 750 mg in 250 mls @ 167 mls/hr IVPB Q12H [facility] PRN Reason: Protocol Last Admin: 02/06/17 20:16 Dose: 167 mls/hr Metformin HCl (Glucophage) 500 mg PO BID [facility] Last Admin: 02/06/17 17:28 Dose: 500 mg Methadone HCl (Methadone) 40 mg PO DAILY [facility] Last Admin: 02/06/17 09:42 Dose: 40 mg Methadone HCl (Methadone) 30 mg PO 1700 [facility] Last Admin: 02/06/17 17:28 Dose: 30 mg Metoprolol Succinate (Toprol Xl) 50 mg PO DAILY [facility] Last Admin: 02/06/17 09:47 Dose: 50 mg Pantoprazole Sodium (Protonix Ec Tab) 40 mg PO ACB [facility] Last Admin: 02/06/17 09:40 Dose: 40 mg Polyethylene Glycol (Miralax) 17 gm PO DAILY [facility] Last Admin: 02/06/17 09:36 Dose: 17 gm Ramipril (Altace) 2.5 mg PO DAILY [facility] Last Admin: 02/06/17 09:46 Dose: 2.5 mg Sitagliptin Phosphate (Januvia) 100 mg PO DAILY [facility] Last Admin: 02/06/17 09:35 Dose: 100 mg - Labs Labs: 02/03/17 09:30 02/03/17 09:30 - Constitutional Appears: Non-toxic, No Acute Distress - Head Exam Head Exam: NORMAL INSPECTION - ENT Exam ENT Exam: Mucous Membranes Moist - Neck Exam Neck Exam: absent: Lymphadenopathy, Meningismus - Respiratory Exam Respiratory Exam: Decreased Breath Sounds - Cardiovascular Exam Cardiovascular Exam: +S1, +S2 - GI/Abdominal Exam GI & Abdominal Exam: Soft. absent: Tenderness - Back Exam Additional comments: area of previous laminectomy with small wound which is starting to heal, no discharge currently, no surrounding erythema, no tenderness Assessment and Plan - Assessment and Plan (Free Text) Plan: Assessment skin and skin structure infection at the site of previous laminectomy and hardware placement (reviewed CT scan of the thoracic spine and no evidence of deeper infection noted) - growing MRSA - was previously treated on 2016 for Skin and skin structure infection of similar area with at least 4 weeks of antibiotics; on WBC scan, no evidence of deeper infection (ie. no evidence of infection of the vertebrae); patient also has HCAP - patient is clinically improving history MRSA bacteremia with discitis and osteomyelitis S/P decompression laminectomy history of Cholelithiasis S/P cholecystectomy coronary artery disease hypertension diabetes mellitus dementia history of right foot osteomyelitis and amputation of right second toe CAD S/P PCI with cardiac stents placed and coronary bypass graft Plan continue Vancomycin and Merrem (day 10 of antibiotics) to complete 10 days; after that, he can be switched to PO Doxycycline for another 7 days after the IV therapy
[2017-02-07 16:34] VITALS: TEMP 97.9
--- NOTE | 2017-02-07 19:06 | PN ---
PULMONARY PROGRESS NOTE DATE: 02/07/2017 REFERRING PHYSICIAN: Dr. Villa. SUBJECTIVE: He is sitting up in a chair having lunch. Night was unremarkable. No headache. No rhinitis. No nausea, no vomiting, or diarrhea. No leg pain or leg swelling. PHYSICAL EXAMINATION: GENERAL: No acute distress. VITAL SIGNS: Temperature 98, heart rate 48, respiratory rate is 20, blood pressure 157/76, pulse ox 99% on room air. HEENT: Moist mucous membranes. . NECK: Supple. No JVD. LUNGS: Has a fair air flow with rhonchi. HEART: S1 and S2. ABDOMEN: Soft, nontender. No organomegaly. EXTREMITIES: No edema. NEUROLOGIC: Awake and alert. Follow simple commands. MEDICATIONS: He is on Altace 2.5 mg daily, bacitracin ointment to affected area, metformin 500 mg twice a day, Januvia 100 mg daily, Klonopin 1 mg twice a day, Lipitor 40 mg daily, methadone 70 mg daily, MiraLAX 17 g daily, Plavix 75 mg daily, Protonix 40 mg daily, Toprol XL 50 mg daily, vancomycin 750 mg q.12h. LABORATORY DATA: Shows hemoglobin 11.5, hematocrit 36.2, WBC 705, platelet count is 115. Glucose is 163. IMPRESSION AND PLAN: Nonhealing ulcer of thoracic spine with history of methicillin-resistant Staphylococcus aureus bacteria, lung infiltrate, atelectasis, diabetes, coronary artery disease, history of coronary artery bypass surgery, methadone dependent, active smoker. Need follow up x-ray to assure the stability of infiltrate and bronchodilator. Urge him to stop smoking. Gastric prophylaxis and DVT prophylaxis. Antibiotics as per infectious disease. We will follow with you. Kuldip Hernandez MD
--- NOTE | 2017-02-07 22:09 | CP.PCM.PN ---
Subjective - Date & Time of Evaluation Date of Evaluation: 02/06/16 Time of Evaluation: 18:00 - Subjective Subjective: feel ok no new c/o on iv vanco/ meropenem.[facility] wound care. getting his pain meds Objective - Vital Signs/Intake and Output Vital Signs (last 24 hours): Temp Pulse Resp BP Pulse Ox 97.9 F 56 L 18 103/49 L 98 02/07/17 16:32 02/07/17 17:00 02/07/17 16:32 02/07/17 16:32 02/07/17 16:32 Intake and Output: 02/07/17 02/08/17 18:59 06:59 Intake Total 1190 360 Output Total 800 Balance 390 360 - Medications Medications: Current Medications Atorvastatin Calcium (Lipitor) 40 mg PO DIN [facility] Last Admin: 02/07/17 17:47 Dose: 40 mg Bacitracin (Bacitracin) 1 ea TOP BID [facility] Last Admin: 02/07/17 17:45 Dose: 1 ea Clonazepam (Klonopin) 1 mg PO BID [facility] PRN Reason: Protocol Last Admin: 02/07/17 17:46 Dose: 1 mg Clopidogrel Bisulfate (Plavix) 75 mg PO DAILY [facility] Last Admin: 02/07/17 09:47 Dose: 75 mg Vancomycin HCl (Vancomycin 750 Mg In Ns) 750 mg in 250 mls @ 167 mls/hr IVPB Q12H [facility] PRN Reason: Protocol Last Admin: 02/07/17 20:15 Dose: 167 mls/hr Metformin HCl (Glucophage) 500 mg PO BID [facility] Last Admin: 02/07/17 17:45 Dose: 500 mg Methadone HCl (Methadone) 40 mg PO DAILY [facility] Last Admin: 02/07/17 09:45 Dose: 40 mg Methadone HCl (Methadone) 30 mg PO 1700 [facility] Last Admin: 02/07/17 17:48 Dose: 30 mg Metoprolol Succinate (Toprol Xl) 50 mg PO DAILY [facility] Last Admin: 02/07/17 09:57 Dose: Not Given Pantoprazole Sodium (Protonix Ec Tab) 40 mg PO ACB [facility] Last Admin: 02/07/17 09:47 Dose: 40 mg Polyethylene Glycol (Miralax) 17 gm PO DAILY [facility] Last Admin: 02/07/17 09:47 Dose: 17 gm Ramipril (Altace) 2.5 mg PO DAILY [facility] Last Admin: 02/07/17 09:41 Dose: 2.5 mg Sitagliptin Phosphate (Januvia) 100 mg PO DAILY [facility] Last Admin: 02/07/17 09:42 Dose: 100 mg - Labs Labs: 02/07/17 08:30 02/03/17 09:30 - Constitutional Appears: Well - Head Exam Head Exam: ATRAUMATIC, NORMAL INSPECTION, NORMOCEPHALIC - Eye Exam Eye Exam: EOMI, Normal appearance, PERRL Pupil Exam: NORMAL ACCOMODATION, PERRL - ENT Exam ENT Exam: Mucous Membranes Moist, Normal Exam - Neck Exam Neck Exam: Full ROM, Normal Inspection. absent: Lymphadenopathy - Respiratory Exam Respiratory Exam: Clear to Ausculation Bilateral, NORMAL BREATHING PATTERN - Cardiovascular Exam Cardiovascular Exam: REGULAR RHYTHM, +S1, +S2. absent: Murmur - GI/Abdominal Exam GI & Abdominal Exam: Soft, Normal Bowel Sounds. absent: Tenderness - Rectal Exam Rectal Exam: Deferred - Extremities Exam Extremities Exam: Full ROM, Normal Capillary Refill, Normal Inspection. absent : Joint Swelling, Pedal Edema - Back Exam Back Exam: NORMAL INSPECTION Additional comments: bacl wound is clean less discharge. dressin applied - Psychiatric Exam Psychiatric exam: Normal Affect, Normal Mood Assessment and Plan (1) Pneumonia Status: Acute (2) Wound infection Status: Acute (3) Back pain Status: Acute (4) Weakness Status: Acute - Assessment and Plan (Free Text) Plan: continue [facility] wound care. iv vanco/meropenem.and all other meds reviewed,will be d/c cassandra am,
--- NOTE | 2017-02-07 22:15 | CP.PCM.PN ---
Subjective - Date & Time of Evaluation Date of Evaluation: 02/06/17 Time of Evaluation: 18:00 - Subjective Subjective: fell better discuss patient need f/up for ct chest as outpt for resolution of infilterate, wound dressing changed Objective - Vital Signs/Intake and Output Vital Signs (last 24 hours): Temp Pulse Resp BP Pulse Ox 97.9 F 56 L 18 103/49 L 98 02/07/17 16:32 02/07/17 17:00 02/07/17 16:32 02/07/17 16:32 02/07/17 16:32 Intake and Output: 02/07/17 02/08/17 18:59 06:59 Intake Total 1190 360 Output Total 800 Balance 390 360 - Medications Medications: Current Medications Atorvastatin Calcium (Lipitor) 40 mg PO DIN [facility] Last Admin: 02/07/17 17:47 Dose: 40 mg Bacitracin (Bacitracin) 1 ea TOP BID [facility] Last Admin: 02/07/17 17:45 Dose: 1 ea Clonazepam (Klonopin) 1 mg PO BID [facility] PRN Reason: Protocol Last Admin: 02/07/17 17:46 Dose: 1 mg Clopidogrel Bisulfate (Plavix) 75 mg PO DAILY [facility] Last Admin: 02/07/17 09:47 Dose: 75 mg Vancomycin HCl (Vancomycin 750 Mg In Ns) 750 mg in 250 mls @ 167 mls/hr IVPB Q12H [facility] PRN Reason: Protocol Last Admin: 02/07/17 20:15 Dose: 167 mls/hr Metformin HCl (Glucophage) 500 mg PO BID [facility] Last Admin: 02/07/17 17:45 Dose: 500 mg Methadone HCl (Methadone) 40 mg PO DAILY [facility] Last Admin: 02/07/17 09:45 Dose: 40 mg Methadone HCl (Methadone) 30 mg PO 1700 [facility] Last Admin: 02/07/17 17:48 Dose: 30 mg Metoprolol Succinate (Toprol Xl) 50 mg PO DAILY [facility] Last Admin: 02/07/17 09:57 Dose: Not Given Pantoprazole Sodium (Protonix Ec Tab) 40 mg PO ACB [facility] Last Admin: 02/07/17 09:47 Dose: 40 mg Polyethylene Glycol (Miralax) 17 gm PO DAILY [facility] Last Admin: 02/07/17 09:47 Dose: 17 gm Ramipril (Altace) 2.5 mg PO DAILY [facility] Last Admin: 02/07/17 09:41 Dose: 2.5 mg Sitagliptin Phosphate (Januvia) 100 mg PO DAILY [facility] Last Admin: 02/07/17 09:42 Dose: 100 mg - Labs Labs: 02/07/17 08:30 02/03/17 09:30 - Constitutional Appears: Well - Head Exam Head Exam: ATRAUMATIC, NORMAL INSPECTION, NORMOCEPHALIC - Eye Exam Eye Exam: EOMI, Normal appearance, PERRL Pupil Exam: NORMAL ACCOMODATION, PERRL - ENT Exam ENT Exam: Mucous Membranes Moist, Normal Exam - Neck Exam Neck Exam: Full ROM, Normal Inspection. absent: Lymphadenopathy - Respiratory Exam Respiratory Exam: Clear to Ausculation Bilateral, NORMAL BREATHING PATTERN - Cardiovascular Exam Cardiovascular Exam: REGULAR RHYTHM, +S1, +S2. absent: Murmur - GI/Abdominal Exam GI & Abdominal Exam: Soft, Normal Bowel Sounds. absent: Tenderness - Rectal Exam Rectal Exam: NORMAL INSPECTION - Extremities Exam Extremities Exam: Full ROM, Normal Capillary Refill, Normal Inspection - Back Exam Back Exam: NORMAL INSPECTION Additional comments: skin wound on thoracic spine less drainage , coverd with 4x4 gauze - Neurological Exam Neurological Exam: Alert, Awake, CN II-XII Intact, Normal Gait, Oriented x3 - Psychiatric Exam Psychiatric exam: Normal Affect, Normal Mood Assessment and Plan (1) Pneumonia Status: Acute (2) Wound infection Status: Acute (3) Back pain Status: Acute (4) Weakness Status: Acute - Assessment and Plan (Free Text) Plan: continue iv vanco/meropenem , need 1 more day to complete 10 days then po doxycycline x 1 week, f/up ct chest by pulmonary as outpatient
[2017-02-08 08:16] VITALS: RESP 20; O2SAT 99
[2017-02-08] MEDS: Bacitracin 500 Units/gm Oint Foilpak UD TOP SCH (10:07)
[2017-02-08] MEDS: POLYETHYLENE GLYCOL 3350 17 GM/Dose PACKET PO SCH (10:08)
[2017-02-08] MEDS: Metoprolol Succinate 50 mg XL Tab PO SCH (10:08)
[2017-02-08] MEDS: Pantoprazole 40 mg EC Tab PO SCH (10:08)
[2017-02-08 10:11] VITALS: BP 150/74; PULSE 62
--- NOTE | 2017-02-08 14:43 | CP.PCM.PN ---
Subjective - Date & Time of Evaluation Date of Evaluation: 02/08/17 Time of Evaluation: 11:10 - Subjective Subjective: 67 year old male seen at bedside concerning right lateral foot superficial wound. Dressing was inplace. Pt was eating at time of evaluation. In good spirits. Has no pedal complaints. Deneis recent f/c/cp/sob/n/v/d. Objective - Vital Signs/Intake and Output Vital Signs (last 24 hours): Temp Pulse Resp BP Pulse Ox 97.9 F 62 20 150/74 99 02/08/17 08:15 02/08/17 10:08 02/08/17 08:15 02/08/17 11:05 02/08/17 08:15 Intake and Output: 02/08/17 02/08/17 06:59 18:59 Intake Total 720 Output Total 500 Balance 220 - Labs Labs: 02/07/17 08:30 02/03/17 09:30 - Constitutional Appears: Well, Non-toxic, No Acute Distress - Extremities Exam Additional comments: Dressing clean, dry, and intact. Neuro-vascular status intact to right foot. DERM: 1.5 x 1 superfiical ulcer on a granular base noted to plantar lateral right foot. Absent marginal maceration, underming, [id number]. Minor seorus exudate noted. - Neurological Exam Neurological Exam: Alert, Awake, Oriented x3 Assessment and Plan - Assessment and Plan (Free Text) Assessment: 67 year old with right foot plantar grade 1 ulceration, uncomplicated. Plan: Pt seen and evaluated. Discussed with attending. Dr. Rich Dressing cosisting of 4x4 gauze and Kerlix applied to right foot wound. Pt to continue ambulating using post-op shoe to right foot. Pt stable from podiatry standpoint for discharge. Pt to follow up in [facility] on Wednesday02/10/17.
--- NOTE | 2017-02-08 17:23 | CP.PCM.PN ---
Subjective - Date & Time of Evaluation Date of Evaluation: 02/08/17 Time of Evaluation: 10:25 - Subjective Subjective: Comfortable in bed, not in distress. Objective - Vital Signs/Intake and Output Vital Signs (last 24 hours): Temp Pulse Resp BP Pulse Ox 97.9 F 52 L 20 150/77 99 02/08/17 08:15 02/08/17 08:15 02/08/17 08:15 02/08/17 08:15 02/08/17 08:15 Intake and Output: 02/08/17 02/08/17 06:59 18:59 Intake Total 720 Output Total 500 Balance 220 - Medications Medications: Current Medications Atorvastatin Calcium (Lipitor) 40 mg PO DIN [facility] Last Admin: 02/07/17 17:47 Dose: 40 mg Bacitracin (Bacitracin) 1 ea TOP BID [facility] Last Admin: 02/07/17 17:45 Dose: 1 ea Clonazepam (Klonopin) 1 mg PO BID [facility] PRN Reason: Protocol Last Admin: 02/07/17 17:46 Dose: 1 mg Clopidogrel Bisulfate (Plavix) 75 mg PO DAILY [facility] Last Admin: 02/07/17 09:47 Dose: 75 mg Vancomycin HCl (Vancomycin 750 Mg In Ns) 750 mg in 250 mls @ 167 mls/hr IVPB Q12H [facility] PRN Reason: Protocol Last Admin: 02/07/17 20:15 Dose: 167 mls/hr Metformin HCl (Glucophage) 500 mg PO BID [facility] Last Admin: 02/07/17 17:45 Dose: 500 mg Methadone HCl (Methadone) 40 mg PO DAILY [facility] Last Admin: 02/07/17 09:45 Dose: 40 mg Methadone HCl (Methadone) 30 mg PO 1700 [facility] Last Admin: 02/07/17 17:48 Dose: 30 mg Metoprolol Succinate (Toprol Xl) 50 mg PO DAILY [facility] Last Admin: 02/07/17 09:57 Dose: Not Given Pantoprazole Sodium (Protonix Ec Tab) 40 mg PO ACB [facility] Last Admin: 02/07/17 09:47 Dose: 40 mg Polyethylene Glycol (Miralax) 17 gm PO DAILY [facility] Last Admin: 02/07/17 09:47 Dose: 17 gm Ramipril (Altace) 2.5 mg PO DAILY [facility] Last Admin: 02/07/17 09:41 Dose: 2.5 mg Sitagliptin Phosphate (Januvia) 100 mg PO DAILY [facility] Last Admin: 02/07/17 09:42 Dose: 100 mg - Labs Labs: 02/07/17 08:30 02/03/17 09:30 - Constitutional Appears: Non-toxic, No Acute Distress - Head Exam Head Exam: NORMAL INSPECTION - Respiratory Exam Respiratory Exam: Decreased Breath Sounds - Cardiovascular Exam Cardiovascular Exam: +S1, +S2 - GI/Abdominal Exam GI & Abdominal Exam: Soft. absent: Tenderness Assessment and Plan - Assessment and Plan (Free Text) Plan: Assessment skin and skin structure infection at the site of previous laminectomy and hardware placement (reviewed CT scan of the thoracic spine and no evidence of deeper infection noted) - growing MRSA - was previously treated on 2016 for Skin and skin structure infection of similar area with at least 4 weeks of antibiotics; on WBC scan, no evidence of deeper infection (ie. no evidence of infection of the vertebrae); patient also has HCAP - patient is clinically improving history MRSA bacteremia with discitis and osteomyelitis S/P decompression laminectomy history of Cholelithiasis S/P cholecystectomy coronary artery disease hypertension diabetes mellitus dementia history of right foot osteomyelitis and amputation of right second toe CAD S/P PCI with cardiac stents placed and coronary bypass graft Plan S/P Vancomycin and Merrem (10 days of antibiotics) should continue PO Doxycycline for another 7 days
--- NOTE | 2017-02-08 21:32 | CP.PCM.DIS ---
Provider - Provider Date of Admission: 01/28/17 19:43 Attending physician: Tate Villa MD Primary care physician: NO PRIMARY CARE PROVIDER Consults: infectious disease consult, neurosurgical consult, Time Spent in preparation of Discharge (in minutes): 20 Diagnosis - Discharge Diagnosis (1) Pneumonia Status: Acute (2) Wound infection Status: Acute (3) Back pain Status: Acute (4) Weakness Status: Acute Hospital Course - Lab Results Lab Results: Most Recent Lab Values WBC 7.5 10^3/ul (4.5-11.0) 02/07/17 08:30 RBC 4.38 10^6/uL (3.5-6.1) 02/07/17 08:30 Hgb 11.5 gm/dL (14.0-18.0) L 02/07/17 08:30 Hct 36.2 % (42.0-52.0) L 02/07/17 08:30 MCV 82.6 fL (80.0-105.0) 02/07/17 08:30 MCH 26.3 pg (25.0-35.0) 02/07/17 08:30 MCHC 31.8 g/dl (31.0-37.0) 02/07/17 08:30 RDW 17.2 % (11.5-14.5) H 02/07/17 08:30 Plt Count 115 10^3/uL (120.0-450.0) L 02/07/17 08:30 MPV 9.3 fl (7.0-11.0) 02/07/17 08:30 Gran % 62.6 % (50.0-68.0) 02/07/17 08:30 Lymph % (Auto) 25.2 % (22.0-35.0) 02/07/17 08:30 [place] % (Auto) 7.3 % (1.0-6.0) H 02/07/17 08:30 Eos % (Auto) 4.4 % (1.5-5.0) 02/07/17 08:30 Baso % (Auto) 0.5 % (0.0-3.0) 02/07/17 08:30 Gran # 4.71 (1.4-6.5) 02/07/17 08:30 Lymph # 1.9 (1.2-3.4) 02/07/17 08:30 [place] # 0.6 (0.1-0.6) 02/07/17 08:30 Eos # 0.3 (0.0-0.7) 02/07/17 08:30 Baso # 0.04 K/mm3 (0.0-2.0) 02/07/17 08:30 ESR 32 mm/hr (0.00-15.0) H 01/29/17 11:53 Sodium 139 mmol/L (132-148) 02/03/17 09:30 Potassium 4.8 mmol/L (3.6-5.0) 02/03/17 09:30 Chloride 99 mmol/L (95-110) 02/03/17 09:30 Carbon Dioxide 31 mmol/L (21-33) 02/03/17 09:30 Anion Gap 14 (10-20) 02/03/17 09:30 BUN 25 mg/dL (7-21) H 02/03/17 09:30 Creatinine 0.9 mg/dL (0.5-1.4) 02/03/17 09:30 Est GFR ( Amer) > 60 02/03/17 09:30 Est GFR (Non-Af Amer) > 60 02/03/17 09:30 POC Glucose (mg/dL) 97 mg/dL (65-110) 02/08/17 11:42 Random Glucose 133 mg/dL (70-110) H 02/03/17 09:30 Calcium 9.1 mg/dL (8.4-10.5) 02/03/17 09:30 Total Bilirubin 0.8 mg/dL (0.2-1.3) 02/03/17 09:30 AST 53 U/L (15-59) 02/03/17 09:30 ALT 52 U/L (7-56) 02/03/17 09:30 Alkaline Phosphatase 110 U/L (38-133) 02/03/17 09:30 C-React Prot High Sens 4.24 mg/L (1.00-3.00) H 01/29/17 11:53 Total Protein 7.6 g/dL (5.8-8.3) 02/03/17 09:30 Albumin 3.6 g/dL (3.0-4.8) 02/03/17 09:30 Globulin 4.0 gm/dL 02/03/17 09:30 Albumin/Globulin Ratio 0.9 (1.1-1.8) L 02/03/17 09:30 Procalcitonin < 0.05 NG/ML (0.19-0.49) L 01/29/17 11:20 Urine Color Yellow (YELLOW) 01/28/17 17:47 Urine Appearance Clear (CLEAR) 01/28/17 17:47 Urine pH 6.5 (4.7-8.0) 01/28/17 17:47 Ur Specific [place] 1.020 (1.005-1.035) 01/28/17 17:47 Urine Protein Negative mg/dL (<30 mg/dL) 01/28/17 17:47 Urine Glucose (UA) Negative mg/dL (NEGATIVE) 01/28/17 17:47 Urine Ketones Negative mg/dL (NEGATIVE) 01/28/17 17:47 Urine Blood Moderate (NEGATIVE) H 01/28/17 17:47 Urine Nitrate Negative (NEGATIVE) 01/28/17 17:47 Urine Bilirubin Negative (NEGATIVE) 01/28/17 17:47 Urine Urobilinogen 0.2 E.U./dL (<1 E.U./dL) 01/28/17 17:47 Ur Leukocyte Esterase [place]/uL (NEGATIVE) H 01/28/17 17:47 Urine RBC 15 - 20 /hpf (0-2) 01/28/17 17:47 Urine WBC 5 - 10 /hpf (0-6) 01/28/17 17:47 Ur Epithelial Cells 10 - 12 /hpf (0-5) 01/28/17 17:47 Vancomycin Trough 22.1 ug/mL (5.0-10.0) H* 02/04/17 21:49 Discharge Exam - Head Exam Head Exam: NORMAL INSPECTION Discharge Plan - Follow Up Plan Condition: FAIR Disposition: HOME/ ROUTINE Instructions: MRSA (Methicillin Resistant Staphylococcus Aureus) (DC), Pneumococcal Vaccine for Adults (DC), Wound Infection (DC), How to Check Your Blood Sugar (DC), Vancomycin Resistant Staphylococcus Aureus Infection (GEN), Basic Carbohydrate Counting (DC), Acute Wound Care (DC) Additional Instructions: Follow up with primary doctor in one week. Follow up with Dr. Rich in one week
== END 2017-02-08 14:24 | disposition home or self-care (01) | DRG 862 ==
LOC: ED 14:39 → ERH 19:43 → 5RSO 22:06
PROVIDERS: ADMIT Internal Medicine; ATTEND Internal Medicine
DX: T81.4XXA Infection following a procedure, initial encounter (principal); B95.62 Methicillin resistant Staphylococcus aureus infection as the cause of diseases classified elsewhere; J18.9 Pneumonia, unspecified organism; L98.429 Non-pressure chronic ulcer of back with unspecified severity; L08.89 Other specified local infections of the skin and subcutaneous tissue; E11.42 Type 2 diabetes mellitus with diabetic polyneuropathy; E11.621 Type 2 diabetes mellitus with foot ulcer; E11.51 Type 2 diabetes mellitus with diabetic peripheral angiopathy without gangrene; L97.519 Non-pressure chronic ulcer of other part of right foot with unspecified severity; M40.204 Unspecified kyphosis, thoracic region; M47.9 Spondylosis, unspecified; I25.10 Atherosclerotic heart disease of native coronary artery without angina pectoris; F17.210 Nicotine dependence, cigarettes, uncomplicated; I10 Essential (primary) hypertension; G89.29 Other chronic pain; F11.20 Opioid dependence, uncomplicated; F03.90 Unspecified dementia, unspecified severity, without behavioral disturbance, psychotic disturbance, mood disturbance, and anxiety; Y83.8 Other surgical procedures as the cause of abnormal reaction of the patient, or of later complication, without mention of misadventure at the time of the procedure; Z89.421 Acquired absence of other right toe(s); Z95.5 Presence of coronary angioplasty implant and graft; Z95.1 Presence of aortocoronary bypass graft; Z86.14 Personal history of Methicillin resistant Staphylococcus aureus infection; Z79.02 Long term (current) use of antithrombotics/antiplatelets; Z90.49 Acquired absence of other specified parts of digestive tract

== ENCOUNTER 2017-03-24 15:30 | Inpatient (IN) | payer MEDICARE, OTHER ==
[2017-03-24 16:34] LABS: BASO # 0.02 K/mm3 (0.0-2.0); BASO % 0.2 % (0.0-3.0); EOS # 0.3 (0.0-0.7); EOS % 2.6 % (1.5-5.0); GRAN # 7.13 (1.4-6.5); GRAN % 74.2 % (50.0-68.0); HEMATOCRIT 32.6 % (42.0-52.0); LYMPH # 1.3 (1.2-3.4); LYMPH % 13.5 % (22.0-35.0); MEAN CELL VOLUME 84.9 fl (80.0-105.0); MEAN CORPUSCULAR HEMOGLOBIN 26.8 pg (25.0-35.0); MEAN CORPUSCULAR HGB CONC 31.6 g/dl (31.0-37.0); MEAN PLATELET VOLUME 9.1 fl (7.0-11.0); MONO # 0.9 (0.1-0.6); MONO % 9.5 % (1.0-6.0); RED CELL DISTRIBUTION WIDTH 16.3 % (11.5-14.5); WHITE BLOOD COUNT 9.6 10^3/ul (4.5-11.0)
[2017-03-24 16:43] LABS: ALB/GLOB RATIO 0.9 (1.1-1.8); ALKALINE PHOSPHATASE 90 U/L (38-126); ALT/SGPT 38 U/L (7-56); AST/SGOT 43 U/L (17-59); BILIRUBIN,TOTAL 0.7 mg/dL (0.2-1.3); BLOOD UREA NITROGEN 25 mg/dL (7-21); CARBON DIOXIDE 31 mmol/L (21-33); CHLORIDE 97 mmol/L (98-107); GFR AFRICAN-AMERICAN > 60; GLUCOSE,RANDOM 106 mg/dL (70-110); INR 1.09 (0.93-1.08); PARTIAL THROMBOPLASTIN TIME 32.4 Seconds (23.7-30.8); POTASSIUM 4.7 mmol/L (3.6-5.0); SODIUM 138 mmol/L (132-148); TOTAL PROTEIN 7.5 g/dL (5.8-8.3)
--- NOTE | 2017-03-24 16:52 | RAD ---
HISTORY: OM of right foot. COMPARISON: 01/28/2017 and 01/14/2016 and 04/01/2015 FINDINGS: LUNGS: The previously rinsed right lower lobe patchy infiltrate adjacent to the hilum has resolved. No interval infiltrate noted. A nodular opacity in the left superior perihilar region is not seen as such on on the 3 after mentioned exams. An interval left pulmonary nodule here needs to be considered. Conceivably a prominent the vessel seen on end could simulate this. However this is not appreciated on prior studies and a possible nodule is the diagnosis of exclusion. PLEURA: No significant pleural effusion identified, no pneumothorax apparent. CARDIOVASCULAR: Mild cardiomegaly unchanged OSSEOUS STRUCTURES: Extensive thoracic hardware Dhaliwal rods and pedicular screws. Sternotomy wires VISUALIZED UPPER ABDOMEN: Normal. OTHER FINDINGS: None. IMPRESSION: No active disease. Prior right infrahilar patchy infiltrate has resolved. A left supra perihilar nodular opacity is currently noted and not appreciated on the after mentioned prior exams. An interval left pulmonary nodule here needs to be considered. Consider elective CT chest imaging for further evaluation. If possible contrast enhancement is advised. The changes as above
[2017-03-24] MEDS ORDERED: Sodium Chloride 0.9% 500 ML IV STA (16:53)
--- NOTE | 2017-03-24 16:57 | ED PDOC ---
Arrival/HPI - General Chief Complaint: Lower Extremity Problem/Injury Time Seen by Provider: 03/24/17 15:33 Historian: Patient - History of Present Illness Narrative History of Present Illness (Text): 03/24/17 16:55 67yr old male with chronic right wound sent to ER by dr. Rich for admission for Osteomyelitis. Patient complaining of chronic wound to the right foot being followed by the wound care center. Patient states he's had continued pain and swelling to the right leg patient denies fevers or chills. No chest pain or shortness of breath. Denies abdominal pain. No other complaints. Symptom Onset: Gradual Symptom Course: Worsening Quality: Aching Severity Level: 4 Past Medical History - Provider Review Nursing Documentation Reviewed: Yes - Travel History Have you recently traveled outside [place] w/in the past 3 mons?: No - Infectious Disease Hx of Infectious Diseases: None - Tetanus Immunization Tetanus Immunization: Unknown - Cardiac Hx Cardiac Disorders: Yes Hx Hypertension: Yes - Pulmonary Hx Respiratory Disorders: Yes Hx Pneumonia: Yes - Neurological Hx Neurological Disorder: Yes Hx Dizziness: Yes Hx Migraine: Yes - HEENT Hx HEENT Disorder: No - Renal Hx Renal Disorder: No - Endocrine/Metabolic Hx Diabetes Mellitus Type 2: Yes - Hematological/Oncological Hx Blood Disorders: No Hx AIDS: No Hx Anemia: No Hx Cancer: No Hx Chemotherapy: No Hx Cirrhosis: No Hx Hepatitis A: No Hx Hepatitis B: No Hx Hepatitis C: No Hx Metastasis: No Hx Shingles: No Hx Unexplained Bleeding: No - Integumentary Hx Dermatological Disorder: Yes (RIGHT 2ND TOE AMPUTATED) - Musculoskeletal/Rheumatological Hx Falls: No - Gastrointestinal Hx Gastrointestinal Disorders: Yes Hx Gall Bladder Disease: Yes - Genitourinary/Gynecological Hx Genitourinary Disorders: No - Psychiatric Hx Psychophysiologic Disorder: Yes Hx Depression: Yes (pt reports peroids of sadness) Hx Substance Use: Yes - Surgical History Hx Amputation: Yes (RIGHT 2ND TOE) Hx Cholecystectomy: Yes Hx Coronary Stent: Yes (X 3) Hx Orthopedic Surgery: Yes - Anesthesia Hx Anesthesia: No Hx Anesthesia Reactions: No Hx Malignant Hyperthermia: No - Suicidal Assessment Feels Threatened In Home Enviroment: No Family/Social History - Physician Review Nursing Documentation Reviewed: Yes Family/Social History: Unknown Family HX Smoking Status: Never Smoked Hx Alcohol Use: No Hx Substance Use: Yes Allergies/Home Meds Allergies/Adverse Reactions: Allergies No Known Allergies Allergy (Verified 01/14/16 13:28) Home Medications: Home Meds Medication Instructions Recorded Confirmed Unobtainable 03/24/17 03/24/17 Review of Systems - Review of Systems Constitutional: absent: Fatigue, Fevers Respiratory: absent: SOB, Cough Cardiovascular: absent: Chest Pain, Palpitations Gastrointestinal: absent: Abdominal Pain, Nausea, Vomiting Musculoskeletal: Arthralgias Neurological: absent: Headache, Dizziness Psychiatric: absent: Anxiety, Depression Physical Exam Vital Signs Reviewed: Yes Vital Signs Temp Pulse Resp BP Pulse Ox 03/24/17 21:24 17 99 03/24/17 21:23 99.0 F 81 17 140/79 99 03/24/17 18:26 76 18 152/71 H 96 03/24/17 15:44 98.0 F 72 18 141/83 97 Temperature: Afebrile Blood Pressure: Normal Pulse: Regular Respiratory Rate: Normal Appearance: Positive for: Well-Appearing, Non-Toxic, Comfortable Pain Distress: None Mental Status: Positive for: Alert and Oriented X 3 - Systems Exam Head: Present: Atraumatic Mouth: Present: Moist Mucous Membranes Respiratory/Chest: Present: Clear to Auscultation Cardiovascular: Present: Regular Rate and Rhythm Abdomen: No: Tenderness Lower Extremity: Present: CALF TENDERNESS, NORMAL PULSES, Normal ROM, Tenderness (Right leg: There is tenderness and swelling noted over the right lower leg. Positive calf tenderness. Positive erythema from the ankle into the dorsal aspect of the foot there is a dime size ulceration noted to the plantar aspect of the right foot over the fifth metatarsal.), Swelling, Erythema, Neurovascularly Intact Neurological: Present: GCS=15 Skin: Present: Warm, Dry Psychiatric: Present: Alert, Oriented x 3 Medical Decision Making ED Course and Treatment: 03/24/17 17:02 67-year-old male with chronic wound to the right foot sent in by Dr. Rich for admission for acute osteomyelitis with consult of ID and request for teflaro IV. CBC: wbc:9.6 CMP; bun 25 blood cultures and urine cultures pending duplex; no dvt verbal report from [employer] [facility]; + leukocytes. xray right foot; worsening deterioration of right MTP joint 5th foot. pt started on Teflaro IV. case discussed with dr. burnett; accepts admission Impression: Osteomyelitis Admitted to [facility] 03/24/17 23:37 - Lab Interpretations Lab Results: 03/24/17 16:21 03/24/17 16:21 Lab Results 03/24/17 16:21: PT 11.8, INR 1.09 H, APTT 32.4 H 03/24/17 16:21: WBC 9.6 D, RBC 3.84, Hgb 10.3 L, Hct 32.6 L, MCV 84.9, MCH 26.8 , MCHC 31.6, RDW 16.3 H, Plt Count 208, MPV 9.1, Gran % 74.2 H, Lymph % (Auto) 13.5 L, [place] % (Auto) 9.5 H, Eos % (Auto) 2.6, Baso % (Auto) 0.2, Gran # 7.13 H , Lymph # 1.3, [place] # 0.9 H, Eos # 0.3, Baso # 0.02 03/24/17 16:21: Sodium 138, Potassium 4.7, Chloride 97 L, Carbon Dioxide 31, Anion Gap 15, BUN 25 H, Creatinine 0.9, Est GFR ( Amer) > 60, Est GFR ( Non-Af Amer) > 60, Random Glucose 106, Calcium 9.0, Total Bilirubin 0.7, AST 43 , ALT 38, Alkaline Phosphatase 90, Total Protein 7.5, Albumin 3.5, Globulin 3.9 , Albumin/Globulin Ratio 0.9 L - RAD Interpretation Radiology Orders: 03/24/17 15:58 CHEST PORTABLE [RAD] Stat - Medication Orders Current Medication Orders: Ceftaroline Fosamil 600 mg/ (Sodium Chloride) 100 mls @ 100 mls/hr IVPB Q12 EZE PRN Reason: Protocol Stop: 04/01/17 10:01 Discontinued Medications Ceftaroline Fosamil 600 mg/ (Sodium Chloride) 100 mls @ 100 mls/hr IVPB Q12 EZE PRN Reason: Protocol Stop: 03/24/17 22:59 Sodium Chloride (Sodium Chloride 0.9%) 500 mls @ 999 mls/hr IV .Q31M STA Stop: 03/24/17 17:23 Last Admin: 03/24/17 18:31 Dose: 999 mls/hr eMAR Start Stop Document 03/24/17 18:31 [email or web address] (Rec: 03/24/17 18:31 [email or web address] [id number]) Intravenous Solution Start Date 03/24/17 Start Time 18:31 End Date 03/24/17 Ceftaroline Fosamil 600 mg/ (Sodium Chloride) 100 mls @ 100 mls/hr IVPB STAT STA PRN Reason: Protocol Stop: 03/24/17 19:36 Last Admin: 03/24/17 19:39 Dose: 100 mls/hr eMAR Start Stop Document 03/24/17 19:39 [email or web address] (Rec: 03/24/17 19:39 [email or web address] [facility] [place] [id number]) Intravenous Solution Start Date 03/24/17 Start Time 19:39 End Date 03/24/17 Tramadol HCl (Ultram) 50 mg PO STAT STA Stop: 03/24/17 17:00 Last Admin: 03/24/17 18:31 Dose: 50 mg MAR Pain Assessment Document 03/24/17 18:31 [email or web address] (Rec: 03/24/17 18:32 [email or web address] [id number]) Pain Reassessment Is this a pain reassessment? No Sleep Is patient sleeping during reassessment? No Presence of Pain Presence of Pain Yes Pain Scale Used Pain Scale Used Numeric Location Left, Right or Bilateral Right Pain Location Body Site Foot Description Description Constant Intensity of Pain at present 7 Pain Behavior Facial Grimacing Aggravating Factors Changing Position Alleviating Factors/Management Medication Techniques Alleviating Factors Medication Disposition/Present on Arrival - Present on Arrival Any Indicators Present on Arrival: No History of DVT/PE: No History of Uncontrolled Diabetes: No Urinary Catheter: No History of Decub. Ulcer: No History Surgical Site Infection Following: None - Disposition Have Diagnosis and Disposition been Completed?: Yes Diagnosis: Osteomyelitis Disposition: HOSPITALIZED Disposition Time: 16:57 Patient Plan: Admission Patient Problems: Current Active Problems Problem Status Onset Osteomyelitis Acute Condition: FAIR
--- NOTE | 2017-03-24 17:41 | US ---
PROCEDURE: Right lower extremity venous US HISTORY: Leg pain and swelling. Evaluate for DVT. PHYSICIAN(S): Leif Lyons M.D. TECHNIQUE: Duplex sonography and color-flow Doppler with graded compression were used to evaluate the deep venous system of the right lower extremity. FINDINGS: The visualized deep venous system of the right lower extremity is sonographically normal and compressible. Normal waveforms and augmentation are seen. There is no sonographic evidence for deep venous thrombosis in the visualized segments of the right lower extremity. IMPRESSION: 1. No sonographic evidence for deep venous thrombosis in the visualized segments of the right lower extremity.
[2017-03-24] MEDS ORDERED: Ceftaroline 600 MG in Sodium Chloride 0.9% 100 ML IVPB STA (18:37)
[2017-03-24 18:56] LABS: URINE BILIRUBIN NEGATIVE (NEGATIVE); URINE BLOOD SMALL (NEGATIVE); URINE GLUCOSE (UA) NEGATIVE (NEGATIVE); URINE KETONE NEGATIVE (NEGATIVE); URINE LEUKOCYTE ESTERASE MODERATE Leu/uL (NEGATIVE); URINE PROTEIN NEGATIVE mg/dL (<30 mg/dL); URINE UROBILINOGEN 0.2 E.U./dL (<1 E.U./dL)
[2017-03-24 19:00] LABS: URINE APPEARANCE SL CLOUDY (CLEAR); URINE COLOR YELLOW (YELLOW)
[2017-03-24 19:02] LABS: URINE CALCIUM OXALATE CRYSTALS FEW /hpf
[2017-03-24 19:03] LABS: URINE BACTERIA MOD (NEG)
[2017-03-24] MEDS ORDERED: Ceftaroline 600 MG in Sodium Chloride 0.9% 100 ML IVPB SCH (22:00)
--- NOTE | 2017-03-24 22:57 | CARD ---
APPROVED REPORT EKG Measurement Heart [id number] <Conclusion> Normal sinus rhythm Right bundle branch block Left anterior fascicular block Bifascicular block Cannot rule out Inferior infarct (masked by fascicular block?), age undetermined Abnormal ECG
[2017-03-24 23:01] VITALS: BMI 22.6
--- NOTE | 2017-03-25 08:24 | RAD ---
PROCEDURE: Right Foot Radiographs. HISTORY: right foot/ 5th metatarsal infection COMPARISON: Right foot radiographs 02/06/2017. FINDINGS: BONES: Prior amputation of the 2nd disease is appreciated a chronic erosion or prior postoperative changes related to the 2nd 3rd and 4th distal metatarsal segments as well as the proximal phalanx of the 3rd digit. The 5th digit is dislocated anteriorly and proximally with lytic changes suggests at the right 5th metatarsal head suspicious for osteomyelitis. A chip or avulsion fracture is questioned inferior and medial to the base of the proximal phalanx of the right 5th digit. JOINTS: Degenerate changes seen throughout the midfoot and hindfoot joints diffusely as well as throughout the in interphalangeal joints diffusely, in the forefoot. Mild hallux valgus deformity is appreciate with advanced degenerate change identified at the 1st metatarsal phalangeal joint. SOFT TISSUES: There is nearly no tissue left superficial to the plantar surface of the distal right 5th metatarsal bone. OTHER FINDINGS: None. IMPRESSION: A fracture dislocation of the 5th metatarsal phalangeal joint is suggested with the proximal phalanx of the right 5th digit dislocated proximally and dorsally. Small chip fracture appears to be associated. Lucency at the distal 5th metatarsal bone suggest osteomyelitis with little or no soft tissue identified at its plantar base. MRI can be utilized for further evaluation of potential osteomyelitis. Prior distal 2nd 3rd 4th metatarsal deformities and postop changes as discussed above.
[2017-03-25] MEDS: Enoxaparin 40 mg Syringe SC SCH (10:23)
[2017-03-25] MEDS: Ceftaroline 600 MG in Sodium Chloride 0.9% 100 ML IVPB SCH ×2 (10:24→22:01)
--- NOTE | 2017-03-25 12:07 | CP.PCM.CON ---
History of Present Illness - History of Present Illness History of Present Illness: Podiatry Consult Note - Dr. Rich 67 year old male patient PMHx DM, HTN, previous osteomyelitis, previous right foot amputation seen at bedside for right foot 5th metatarsal ulceration and osteomyelitis. Patient was seen in the wound care clinic yesterday, and was complaining of increased pain and swelling to his ulceration site. Patient was sent to the ED for admission regarding OM. Patient reports continued pain to his right foot today. Patient aware that he requires surgical intervention at this time for treatment of OM. Patient denies N/V/F/D/C/SOB/calf pain. No other pedal complaints at this time. Review of Systems - Review of Systems All systems: reviewed and no additional remarkable complaints except (as per HPI ) Past Patient History - Infectious Disease Hx of Infectious Diseases: None - Tetanus Immunizations Tetanus Immunization: Unknown - Past Social History Smoking Status: Never Smoked - CARDIAC Hx Cardiac Disorders: Yes Hx Hypertension: Yes - PULMONARY Hx Respiratory Disorders: Yes Hx Pneumonia: Yes - NEUROLOGICAL Hx Neurological Disorder: Yes Hx Dizziness: Yes Hx Migraine: Yes - HEENT Hx HEENT Problems: No - RENAL Hx Chronic Kidney Disease: No - ENDOCRINE/METABOLIC Hx Diabetes Mellitus Type 2: Yes - HEMATOLOGICAL/ONCOLOGICAL Hx Blood Disorders: No Hx AIDS: No Hx Anemia: No Hx Cancer: No Hx Chemotherapy: No Hx Cirrhosis: No Hx Hepatitis A: No Hx Hepatitis B: No Hx Hepatitis C: No Hx Metastesis: No Hx Shingles: No Hx Unexplained Bleeding: No - INTEGUMENTARY Hx Dermatological Problems: Yes (RIGHT 2ND TOE AMPUTATED) - MUSCULOSKELETAL/RHEUMATOLOGICAL Hx Falls: No - GASTROINTESTINAL Hx Gastrointestinal Disorders: Yes Hx Gall Bladder Disease: Yes - GENITOURINARY/GYNECOLOGICAL Hx Genitourinary Disorders: No - PSYCHIATRIC Hx Psychophysiologic Disorder: Yes Hx Depression: Yes (pt reports peroids of sadness) Hx Substance Use: Yes - SURGICAL HISTORY Hx Amputation: Yes (RIGHT 2ND TOE) Hx Cholecystectomy: Yes Hx Coronary Stent: Yes (X 3) Hx Orthopedic Surgery: Yes - ANESTHESIA Hx Anesthesia: No Hx Anesthesia Reactions: No Hx Malignant Hyperthermia: No Meds Allergies/Adverse Reactions: Allergies Allergy/AdvReac Type Severity Reaction Status Date / Time No Known Allergies Allergy Verified 01/14/16 13:28 - Medications Medications: Current Medications Atorvastatin Calcium (Lipitor) 40 mg PO DIN [facility] Clonazepam (Klonopin) 1 mg PO BID [facility] PRN Reason: Protocol Enoxaparin Sodium (Lovenox) 40 mg SC DAILY [facility] PRN Reason: Protocol Last Admin: 03/25/17 10:23 Dose: 40 mg Famotidine (Pepcid) 40 mg PO HS [facility] Ceftaroline Fosamil 600 mg/ (Sodium Chloride) 100 mls @ 100 mls/hr IVPB Q12 [facility] PRN Reason: Protocol Stop: 04/01/17 10:01 Last Admin: 03/25/17 10:24 Dose: 100 mls/hr Metformin HCl (Glucophage) 500 mg PO BID [facility] Last Admin: 03/25/17 10:23 Dose: 500 mg Methadone HCl (Methadone) 40 mg PO DAILY [facility] Methadone HCl (Methadone) 30 mg PO HS [facility] Metoprolol Tartrate (Lopressor) 50 mg PO BRKDIN [facility] Multivitamins/Minerals (Therapeutic-M Tab) 1 tab PO 0800 [facility] Ramipril (Altace) 1.25 mg PO DAILY [facility] Last Admin: 03/25/17 10:20 Dose: 1.25 mg Sitagliptin Phosphate (Januvia) 100 mg PO DAILY [facility] Last Admin: 03/25/17 10:23 Dose: 100 mg Physical Exam - Constitutional Appears: Well, Non-toxic, No Acute Distress - Extremities Exam Additional comments: RLE focused physical exam: Dressing appears clean/dry/intact with no strikethrough noted. VASC: DP and PT pulses palpable. CFT WNL. TG warm to warm. No edema noted to plantarlateral 5th metatarsal head. NEURO: Protective sensation diminished. DERM: Ulceration measuring approximately 1.5 x 1.3 cm noted to plantar aspect of 5th met head, +probe to bone, +malodor. No fluctuance, purulence, drainage noted. Ulcer is noted to have a fibrous base with a hyperkeratotic rim. ORTHO: Tenderness to palpation plantar ulceration - Neurological Exam Neurological exam: Alert, Oriented x3 - Psychiatric Exam Psychiatric exam: Normal Affect, Normal Mood Results - Vital Signs Recent Vital Signs: Last Vital Signs Temp 97.7 F 03/25/17 07:30 Pulse 53 L 03/25/17 07:30 Resp 20 03/25/17 07:30 BP 140/69 03/25/17 10:20 Pulse Ox 98 03/25/17 07:30 - Labs Result Diagrams: 03/24/17 16:21 03/24/17 16:21 Labs: Laboratory Results - last 24 hr 03/24/17 03/25/17 03/25/17 18:43 07:35 11:28 POC Glucose (mg/dL) 87 100 Urine Color Yellow Urine Appearance Sl cloudy Urine pH 6.0 Ur Specific [place] 1.025 Urine Protein Negative Urine Glucose (UA) Negative Urine Ketones Negative Urine Blood Small H Urine Nitrate Negative Urine Bilirubin Negative Urine Urobilinogen 0.2 Ur Leukocyte Esterase Moderate H Urine RBC 5 - 10 Urine WBC 10 - 15 Ur Epithelial Cells 4 - 5 Calcium Oxalate Crystal Few Urine Bacteria Mod Assessment & Plan - Assessment and Plan (Free Text) Assessment: 67 year old male PMHx DM, HTN, hx of right foot osteomyelitis with 5th met head plantar ulceration + osteomyelitis Plan: Patient seen and evaluated with attending, Dr. Rich Chart, vitals, labs reviewed = afebrile, WBC WNL @ 9.6 - F/U ESR, Crp, A1c Discussed with patient morbidity associated with OM, and recommend surgical intervention to remove remaining infection. Patient demonstrates verbal understanding. - To OR 03/29/17 @ 4:30 PM for right 5th ray partial amputation Right foot dressed with DSD Right foot XR reviewed: Lucency at the distal 5th metatarsal suggests osteomyelitis with little or no soft tissue identified at its plantar base. MRI can be utilized for further evaluation of potential osteomyelitis - RLE MRI ordered F/U RLE arterial doppler results Podiatry will continue to follow while in house
--- NOTE | 2017-03-25 13:39 | CP.PCM.CON ---
History of Present Illness - History of Present Illness History of Present Illness: 67 year old male with PMH of CAD S/P CABG, HTN, diabetes mellitus, history of MRSA bacteremia with discitis and osteomyelitis S/P decompression laminectomy in 2015 and history of skin and skin structure infection at the site of previous laminectomy and hardware placement, history of right foot osteomyelitis and amputation of right second toe and amputation of 5th metatarsal was sent in from the wound care center because of worsening ulceration and pain on the right foot at the 5th metatarsal site which had an ulcer. Malodorous discharge was noted from the site. The patient denies soaking his feet in water, no walking barefoot on soil, no animal contacts. He denies fever or chills, no nausea or vomiting, no chest pain, no SOB, no headache or dizziness, no cough or rhinorrhea, no diarrhea, no dysuria. Infectious diseases consult is requested to further evaluate and manage. Review of Systems - Review of Systems All systems: reviewed and no additional remarkable complaints except (as per HPI ) Past Patient History - Infectious Disease Hx of Infectious Diseases: None - Tetanus Immunizations Tetanus Immunization: Unknown - Past Social History Smoking Status: Former Smoker - CARDIAC Hx Cardiac Disorders: Yes Hx Hypertension: Yes - PULMONARY Hx Respiratory Disorders: Yes Hx Pneumonia: Yes - NEUROLOGICAL Hx Neurological Disorder: Yes Hx Dizziness: Yes Hx Migraine: Yes - HEENT Hx HEENT Problems: No - RENAL Hx Chronic Kidney Disease: No - ENDOCRINE/METABOLIC Hx Diabetes Mellitus Type 2: Yes - HEMATOLOGICAL/ONCOLOGICAL Hx Blood Disorders: No Hx AIDS: No Hx Anemia: No Hx Cancer: No Hx Chemotherapy: No Hx Cirrhosis: No Hx Hepatitis A: No Hx Hepatitis B: No Hx Hepatitis C: No Hx Metastesis: No Hx Shingles: No Hx Unexplained Bleeding: No - INTEGUMENTARY Hx Dermatological Problems: Yes (RIGHT 2ND TOE AMPUTATED) - MUSCULOSKELETAL/RHEUMATOLOGICAL Hx Falls: No - GASTROINTESTINAL Hx Gastrointestinal Disorders: Yes Hx Gall Bladder Disease: Yes - GENITOURINARY/GYNECOLOGICAL Hx Genitourinary Disorders: No - PSYCHIATRIC Hx Psychophysiologic Disorder: Yes Hx Depression: Yes (pt reports peroids of sadness) - SURGICAL HISTORY Hx Amputation: Yes (RIGHT 2ND TOE) Hx Cholecystectomy: Yes Hx Coronary Stent: Yes (X 3) Hx Orthopedic Surgery: Yes - ANESTHESIA Hx Anesthesia: No Hx Anesthesia Reactions: No Hx Malignant Hyperthermia: No Meds Allergies/Adverse Reactions: Allergies Allergy/AdvReac Type Severity Reaction Status Date / Time No Known Allergies Allergy Verified 01/14/16 13:28 - Medications Medications: Current Medications Ceftaroline Fosamil 600 mg/ (Sodium Chloride) 100 mls @ 100 mls/hr IVPB Q12 [facility] PRN Reason: Protocol Stop: 04/01/17 10:01 Physical Exam - Constitutional Appears: Non-toxic, No Acute Distress - Head Exam Head Exam: NORMAL INSPECTION - ENT Exam ENT Exam: Mucous Membranes Moist - Neck Exam Neck exam: Negative for: Meningismus - Respiratory Exam Respiratory Exam: Decreased Breath Sounds - Cardiovascular Exam Cardiovascular Exam: +S1, +S2 - GI/Abdominal Exam GI & Abdominal Exam: Soft. absent: Tenderness - Extremities Exam Additional comments: right foot with dressings in place Results - Vital Signs Recent Vital Signs: Last Vital Signs Temp 97.7 F 03/24/17 21:52 Pulse 67 03/24/17 21:52 Resp 20 03/24/17 21:52 BP 137/72 03/24/17 21:52 Pulse Ox 99 03/24/17 21:24 - Labs Result Diagrams: 03/24/17 16:21 03/24/17 16:21 Labs: Laboratory Results - last 24 hr 03/24/17 18:43 Urine Color Yellow Urine Appearance Sl cloudy Urine pH 6.0 Ur Specific [place] 1.025 Urine Protein Negative Urine Glucose (UA) Negative Urine Ketones Negative Urine Blood Small H Urine Nitrate Negative Urine Bilirubin Negative Urine Urobilinogen 0.2 Ur Leukocyte Esterase Moderate H Urine RBC 5 - 10 Urine WBC 10 - 15 Ur Epithelial Cells 4 - 5 Calcium Oxalate Crystal Few Urine Bacteria Mod Assessment & Plan - Assessment and Plan (Free Text) Plan: Assessment right foot infected ulcer at site of 5th metatarsal amputation for previous osteomyelitis, R/O new onset osteomyelitis skin and skin structure infection at the site of previous laminectomy and hardware placement history of HCAP history MRSA bacteremia with discitis and osteomyelitis S/P decompression laminectomy history of Cholelithiasis S/P cholecystectomy coronary artery disease hypertension diabetes mellitus dementia history of right foot osteomyelitis and amputation of right second toe CAD S/P PCI with cardiac stents placed and coronary bypass graft Plan based on most recent cultures of the area, we have started the patient on Teflaro pending blood cx, wound cx also awaiting Bone scan to rule out osteomyelitis will monitor clinically reviewed Podiatry evaluation and recommendations
--- NOTE | 2017-03-25 15:32 | CP.PCM.CON ---
<Ingris Mccartney - Last Filed: 03/25/17 15:28> History of Present Illness - History of Present Illness History of Present Illness: Seen and examined at the bedside earlier today, the chart was reviewed. Request for GI consult is for anemia. HPI: This is a 66-year-old male with a past medical history of discitis, diabetes mellitus, hypertension, chronic hepatitis C untreated,was sent to the emergency room by his esophagitis for further achievement of his osteomyelitis. The patient is being treated by Dr. Plasencia and goes to the wound center, he has osteomyelitis on his right foot, the patient was complaining of increased pain and swelling. The patient on review of blood work is found to be anemic. Patient denies any melena or bright red blood per rectum. Denies hematemesis. He was seen by our service back in December 2015 for dilated CBD, he had an EGD/EUS that showed multiple gallstones and periportal lymph nodes and he then had a cholecystectomy with liver biopsy, has found have chronic Hepatitis C, biopsy reveal Grade 2 Stage 3. The liver biopsy shows periportal inflammation with focal bridge fibrosis. Patient has not had any treatment. PMHx: DM Type II, CAD, hyperlipidemia, hypertension, and PVD ,Hepatitis C, chronic back wound Surgical hx: CABG, coronary stent X 2, cholecystectomy, laminectomy Family hx: denies colon/gastric cancer, says parents were healthy, father in 80's Social hx: smokes < 10 cigarettes/day, hx of ETOH, denies drugs Meds: reviewed as per SEP. Allergies: NKDA ROS: Systems reviewed with positive findings, see HPI. Past Patient History - Infectious Disease Hx of Infectious Diseases: None - Tetanus Immunizations Tetanus Immunization: Unknown - Past Social History Smoking Status: Former Smoker - CARDIAC Hx Cardiac Disorders: Yes Hx Hypertension: Yes - PULMONARY Hx Respiratory Disorders: Yes Hx Pneumonia: Yes - NEUROLOGICAL Hx Neurological Disorder: Yes Hx Dizziness: Yes Hx Migraine: Yes - HEENT Hx HEENT Problems: No - RENAL Hx Chronic Kidney Disease: No - ENDOCRINE/METABOLIC Hx Diabetes Mellitus Type 2: Yes - HEMATOLOGICAL/ONCOLOGICAL Hx Blood Disorders: No Hx AIDS: No Hx Anemia: No Hx Cancer: No Hx Chemotherapy: No Hx Cirrhosis: No Hx Hepatitis A: No Hx Hepatitis B: No Hx Hepatitis C: No Hx Metastesis: No Hx Shingles: No Hx Unexplained Bleeding: No - INTEGUMENTARY Hx Dermatological Problems: Yes (RIGHT 2ND TOE AMPUTATED) - MUSCULOSKELETAL/RHEUMATOLOGICAL Hx Falls: No - GASTROINTESTINAL Hx Gastrointestinal Disorders: Yes Hx Gall Bladder Disease: Yes - GENITOURINARY/GYNECOLOGICAL Hx Genitourinary Disorders: No - PSYCHIATRIC Hx Psychophysiologic Disorder: Yes Hx Depression: Yes (pt reports peroids of sadness) - SURGICAL HISTORY Hx Amputation: Yes (RIGHT 2ND TOE) Hx Cholecystectomy: Yes Hx Coronary Stent: Yes (X 3) Hx Orthopedic Surgery: Yes - ANESTHESIA Hx Anesthesia: No Hx Anesthesia Reactions: No Hx Malignant Hyperthermia: No Meds Allergies/Adverse Reactions: Allergies Allergy/AdvReac Type Severity Reaction Status Date / Time No Known Allergies Allergy Verified 01/14/16 13:28 - Medications Medications: Current Medications Atorvastatin Calcium (Lipitor) 40 mg PO DIN [facility] Clonazepam (Klonopin) 1 mg PO BID [facility] PRN Reason: Protocol Last Admin: 03/25/17 12:55 Dose: 1 mg Enoxaparin Sodium (Lovenox) 40 mg SC DAILY [facility] PRN Reason: Protocol Last Admin: 03/25/17 10:23 Dose: 40 mg Famotidine (Pepcid) 40 mg PO HS [facility] Ceftaroline Fosamil 600 mg/ (Sodium Chloride) 100 mls @ 100 mls/hr IVPB Q12 [facility] PRN Reason: Protocol Stop: 04/01/17 10:01 Last Admin: 03/25/17 10:24 Dose: 100 mls/hr Metformin HCl (Glucophage) 500 mg PO BID [facility] Last Admin: 03/25/17 10:23 Dose: 500 mg Methadone HCl (Methadone) 40 mg PO DAILY [facility] Last Admin: 03/25/17 12:55 Dose: 40 mg Methadone HCl (Methadone) 30 mg PO HS [facility] Metoprolol Tartrate (Lopressor) 50 mg PO BRKDIN [facility] Multivitamins/Minerals (Therapeutic-M Tab) 1 tab PO 0800 [facility] Ramipril (Altace) 1.25 mg PO DAILY [facility] Last Admin: 03/25/17 10:20 Dose: 1.25 mg Sitagliptin Phosphate (Januvia) 100 mg PO DAILY [facility] Last Admin: 03/25/17 10:23 Dose: 100 mg Physical Exam - Constitutional Appears: No Acute Distress - Head Exam Head Exam: NORMOCEPHALIC - Eye Exam Eye Exam: Normal appearance. absent: Scleral icterus - ENT Exam ENT Exam: Mucous Membranes Moist - Neck Exam Neck exam: Positive for: Normal Inspection - Respiratory Exam Respiratory Exam: NORMAL BREATHING PATTERN. absent: Respiratory Distress - Cardiovascular Exam Cardiovascular Exam: +S1, +S2 - GI/Abdominal Exam GI & Abdominal Exam: Normal Bowel Sounds, Soft. absent: Guarding, Organomegaly , Rebound, Tenderness - Extremities Exam Extremities exam: Positive for: pedal edema (right foot, has dressing), pedal pulses present - Neurological Exam Neurological exam: Alert, CN II-XII Intact, Oriented x3 - Skin Skin Exam: Dry, Warm Results - Vital Signs Recent Vital Signs: Last Vital Signs Temp 97.7 F 03/25/17 07:30 Pulse 53 L 03/25/17 07:30 Resp 20 03/25/17 07:30 BP 140/69 03/25/17 10:20 Pulse Ox 98 03/25/17 07:30 - Labs Result Diagrams: 03/24/17 16:21 03/24/17 16:21 Labs: Laboratory Results - last 24 hr 03/24/17 03/25/17 03/25/17 18:43 07:35 10:25 ESR 54 H POC Glucose (mg/dL) 87 Urine Color Yellow Urine Appearance Sl cloudy Urine pH 6.0 Ur Specific [place] 1.025 Urine Protein Negative Urine Glucose (UA) Negative Urine Ketones Negative Urine Blood Small H Urine Nitrate Negative Urine Bilirubin Negative Urine Urobilinogen 0.2 Ur Leukocyte Esterase Moderate H Urine RBC 5 - 10 Urine WBC 10 - 15 Ur Epithelial Cells 4 - 5 Calcium Oxalate Crystal Few Urine Bacteria Mod 03/25/17 11:28 ESR POC Glucose (mg/dL) 100 Urine Color Urine Appearance Urine pH Ur Specific [place] Urine Protein Urine Glucose (UA) Urine Ketones Urine Blood Urine Nitrate Urine Bilirubin Urine Urobilinogen Ur Leukocyte Esterase Urine RBC Urine WBC Ur Epithelial Cells Calcium Oxalate Crystal Urine Bacteria Assessment & Plan - Assessment and Plan (Free Text) Assessment: Assessment: Right foot osteomyelitis w/ right 2nd toe amupuation and fifth metatarsal amputation Anemia Periportal lymph nodes Chronic hepatitis C History of diabetes mellitus type 2 Hypertension Coronary artery disease Plan: monitor H and H Continue GI prophylaxis, on Pepcid in the evening Discussed with patient regarding out patient treatment for hepatitis C. Outpatient elective EGD colonoscopy, discussed with patient and Dr. Villa. on Lovenox On IV antibiotics as per ID Diet as tolerated Thank you for this consult and for allowing us to participate in your patient's care, further recommendations based upon clinical course. Seen and discussed with Dr. Edouard. <Megan Edouard V - Last Filed: 03/26/17 00:26> Meds - Medications Medications: Current Medications Atorvastatin Calcium (Lipitor) 40 mg PO DIN [facility] Last Admin: 03/25/17 18:11 Dose: 40 mg Clonazepam (Klonopin) 1 mg PO BID [facility] PRN Reason: Protocol Last Admin: 03/25/17 18:11 Dose: 1 mg Enoxaparin Sodium (Lovenox) 40 mg SC DAILY [facility] PRN Reason: Protocol Last Admin: 03/25/17 10:23 Dose: 40 mg Famotidine (Pepcid) 40 mg PO HS [facility] Last Admin: 03/25/17 22:00 Dose: 40 mg Ceftaroline Fosamil 600 mg/ (Sodium Chloride) 100 mls @ 100 mls/hr IVPB Q12 [facility] PRN Reason: Protocol Stop: 04/01/17 10:01 Last Admin: 03/25/17 22:01 Dose: 100 mls/hr Metformin HCl (Glucophage) 500 mg PO BID [facility] Last Admin: 03/25/17 19:36 Dose: Not Given Methadone HCl (Methadone) 40 mg PO DAILY [facility] Last Admin: 03/25/17 12:55 Dose: 40 mg Methadone HCl (Methadone) 30 mg PO HS [facility] Last Admin: 03/25/17 22:00 Dose: 30 mg Metoprolol Tartrate (Lopressor) 50 mg PO BRKDIN [facility] Last Admin: 03/25/17 19:36 Dose: Not Given Multivitamins/Minerals (Therapeutic-M Tab) 1 tab PO 0800 [facility] Ramipril (Altace) 1.25 mg PO DAILY [facility] Last Admin: 03/25/17 10:20 Dose: 1.25 mg Sitagliptin Phosphate (Januvia) 100 mg PO DAILY [facility] Last Admin: 03/25/17 10:23 Dose: 100 mg Results - Vital Signs Recent Vital Signs: Last Vital Signs Temp 97.7 F 03/25/17 07:30 Pulse 52 L 03/25/17 17:45 Resp 20 03/25/17 07:30 BP 140/69 03/25/17 10:20 Pulse Ox 98 03/25/17 07:30 - Labs Result Diagrams: 03/24/17 16:21 03/24/17 16:21 Labs: Laboratory Results - last 24 hr 03/25/17 03/25/17 03/25/17 07:35 10:25 10:25 ESR 54 H POC Glucose (mg/dL) 87 Hemoglobin A1c C-React Prot High Sens > 15.00 H 03/25/17 03/25/17 03/25/17 10:25 11:28 16:14 ESR POC Glucose (mg/dL) 100 64 L Hemoglobin A1c 5.6 C-React Prot High Sens 03/25/17 18:18 ESR POC Glucose (mg/dL) 100 Hemoglobin A1c C-React Prot High Sens Attending/Attestation - Attestation I have personally seen and examined this patient.: Yes I have fully participated in the care of the patient.: Yes I have reviewed all pertinent clinical information: Yes Notes (Text): This is an addendum to GI progress report dictated by Ingris Mccartney APN.The patient was seen and examined earlier. Medical records, lab studies, imagings were reviewed. Last 24 hours events reviewed. Agreed with the above treatment plan as outlined in Ingris Mccartney APN's notes the with the addition of the following on examination abdomen soft no masses no tenderness anemia History of periportal lymphadenopathy Chronic hep C Status post cholecystectomy follow up the hemoglobin and hematocrit Discussed with the patient regarding treatment for hep C patient was noncompliant Would benefit from colonoscopy and the timing operative procedure will be based on the clinical course
--- NOTE | 2017-03-25 18:48 | US ---
PROCEDURE: Lower extremity IVELISSE exam HISTORY: Peripheral vascular disease with pain and ulceration. Previous smoker. PHYSICIAN(S): Leif Lyons MD. FINDINGS: The resting IVELISSE's are normal: right, 1.09and left, 1.05. The brachial systolic pressures are symmetric. The high thigh pressures and waveforms are relatively normal. The calf PVR waveforms augment normally. No significant gradients are noted across the thighs. The right ankle and metatarsal waveforms are normal. The left ankle and metatarsal waveforms are moderately blunted. This is consistent with left tibial occlusive disease. IMPRESSION: 1. Normal IVELISSE at rest 2. Left tibial occlusive disease. 3. The right PVR waveforms are normal at all levels.
[2017-03-26 07:47] LABS: HEMATOCRIT 32.3 % (42.0-52.0); MEAN CELL VOLUME 83.9 fl (80.0-105.0); WHITE BLOOD COUNT 6.3 10^3/ul (4.5-11.0)
[2017-03-26 08:16] LABS: ALB/GLOB RATIO 0.8 (1.1-1.8); ALKALINE PHOSPHATASE 90 U/L (38-126); ALT/SGPT 40 U/L (7-56); AST/SGOT 58 U/L (17-59); BILIRUBIN,TOTAL 0.7 mg/dL (0.2-1.3); BLOOD UREA NITROGEN 15 mg/dL (7-21); CARBON DIOXIDE 36 mmol/L (21-33); CHLORIDE 98 mmol/L (98-107); GFR AFRICAN-AMERICAN > 60; GLUCOSE,RANDOM 76 mg/dL (70-110); SODIUM 141 mmol/L (132-148)
[2017-03-26 08:20] LABS: POTASSIUM 5.6 mmol/L (3.6-5.0)
[2017-03-26] MEDS: Multivitamin With Minerals Tab PO SCH (08:24)
[2017-03-26] MEDS ORDERED: Sod Polystyrene Sulf 15 gm/60 ml Oral Susp PO ONE (08:50)
[2017-03-26 09:05] LABS: CHOLESTEROL 105 mg/dL (130-200)
[2017-03-26] MEDS: Enoxaparin 40 mg Syringe SC SCH (10:02)
[2017-03-26] MEDS: Ceftaroline 600 MG in Sodium Chloride 0.9% 100 ML IVPB SCH ×2 (12:29→21:24)
--- NOTE | 2017-03-26 13:15 | CON ---
DATE: 03/26/2017 HISTORY OF PRESENT ILLNESS: The patient is a 67-year-old male who presents with some osteomyelitis of the right lower extremity. The patient's cardiac history includes a history of coronary artery bypass surgery remotely. The patient denies chest pain, denies shortness of breath. The patient also suffers from diabetes mellitus, severe COPD, as well as hypercholesterolemia. MEDICATIONS: The patient is currently on methadone. SOCIAL HISTORY: He denies smoking. REVIEW OF SYSTEMS: The 14-point review of systems was reviewed in detail. No cardiac symptomatology is noted. PHYSICAL EXAMINATION: VITAL SIGNS: Blood pressure 138/73, heart rate in the 60s. NECK: Negative JVD. LUNGS: Without rales. HEART: Reveals S1, S2. EXTREMITIES: Without edema. EKG: He is in normal sinus rhythm with a right bundle-branch block. Hemoglobin is 10.0. Chemistries, the potassium is 5.6 today which was 4.7 earlier. BUN and creatinine are unremarkable. IMPRESSION: 1. Osteomyelitis. 2. Stable angina. 3. History of coronary artery bypass surgery. 4. Coronary artery disease. 5. Chronic obstructive pulmonary disease. 6. Diabetes mellitus. FINDINGS: Given these findings, the patient's cardiac status is stable. His last echocardiogram done earlier this year shows normal LV function. From a cardiac perspective, there are no contraindications to the planned surgery on Wednesday. We will recheck his potassium in the morning. Leif Oleary MD
--- NOTE | 2017-03-26 13:35 | CP.PCM.PN ---
Subjective - Date & Time of Evaluation Date of Evaluation: 03/26/17 Time of Evaluation: 12:25 - Subjective Subjective: Comfortable in bed, not in distress, afebrile, currently on pain in the right foot. Objective - Vital Signs/Intake and Output Vital Signs (last 24 hours): Temp Pulse Resp BP Pulse Ox 97.6 F 59 L 20 138/73 95 03/26/17 07:30 03/26/17 07:30 03/26/17 07:30 03/26/17 07:30 03/26/17 07:30 Intake and Output: 03/26/17 03/26/17 06:59 18:59 Intake Total 1140 Output Total 850 Balance 290 - Medications Medications: Current Medications Atorvastatin Calcium (Lipitor) 40 mg PO DIN [facility] Last Admin: 03/25/17 18:11 Dose: 40 mg Clonazepam (Klonopin) 1 mg PO BID [facility] PRN Reason: Protocol Last Admin: 03/26/17 10:00 Dose: 1 mg Enoxaparin Sodium (Lovenox) 40 mg SC DAILY [facility] PRN Reason: Protocol Last Admin: 03/26/17 10:02 Dose: 40 mg Famotidine (Pepcid) 40 mg PO HS [facility] Last Admin: 03/25/17 22:00 Dose: 40 mg Ceftaroline Fosamil 600 mg/ (Sodium Chloride) 100 mls @ 100 mls/hr IVPB Q12 [facility] PRN Reason: Protocol Stop: 04/01/17 10:01 Last Admin: 03/25/17 22:01 Dose: 100 mls/hr Metformin HCl (Glucophage) 500 mg PO DAILY [facility] Last Admin: 03/26/17 10:01 Dose: 500 mg Methadone HCl (Methadone) 40 mg PO DAILY [facility] Last Admin: 03/26/17 10:01 Dose: 40 mg Methadone HCl (Methadone) 30 mg PO HS [facility] Last Admin: 03/25/17 22:00 Dose: 30 mg Metoprolol Tartrate (Lopressor) 25 mg PO BRKDIN [facility] Multivitamins/Minerals (Therapeutic-M Tab) 1 tab PO 0800 [facility] Last Admin: 03/26/17 08:24 Dose: 1 tab - Labs Labs: 03/26/17 07:39 03/26/17 07:39 PT 11.8 Seconds (9.9-11.8) 03/24/17 16:21 INR 1.09 (0.93-1.08) H 03/24/17 16:21 APTT 32.4 Seconds (23.7-30.8) H 03/24/17 16:21 - Constitutional Appears: Non-toxic, No Acute Distress - Head Exam Head Exam: NORMAL INSPECTION - ENT Exam ENT Exam: Mucous Membranes Moist - Neck Exam Neck Exam: absent: Lymphadenopathy, Meningismus - Respiratory Exam Respiratory Exam: Decreased Breath Sounds - Cardiovascular Exam Cardiovascular Exam: +S1, +S2 - GI/Abdominal Exam GI & Abdominal Exam: Soft. absent: Tenderness - Extremities Exam Additional comments: right foot with dressings in place Assessment and Plan - Assessment and Plan (Free Text) Plan: Assessment right foot infected ulcer at site of 5th metatarsal amputation for previous osteomyelitis, with probable new onset osteomyelitis skin and skin structure infection at the site of previous laminectomy and hardware placement history of HCAP history MRSA bacteremia with discitis and osteomyelitis S/P decompression laminectomy history of Cholelithiasis S/P cholecystectomy coronary artery disease hypertension diabetes mellitus dementia history of right foot osteomyelitis and amputation of right second toe CAD S/P PCI with cardiac stents placed and coronary bypass graft Plan based on most recent cultures of the area, will continue Teflaro pending wound cx; blood cx are negative so far also awaiting Bone scan / MRI to rule out osteomyelitis will monitor clinically reviewed Podiatry evaluation and recommendations
--- NOTE | 2017-03-26 14:16 | PCM.PAD ---
PAD Screening - Peripheral Artery Disease Assessment When you walk, do you experience aching, cramping or pain in your legs, thighs, or buttocks: Yes When do you feel the pain: After walking 1 block If you have pain, does the pain subside with rest: Yes Have you ever been diagnosed with Peripheral Vascular Disease or been diagnosed as having poor circulation: Yes Have you ever had surgery, balloon procedures or stents in your heart, kidneys, belly, legs, or arms: No Do you have any painful sores or ulcers on legs or feet that do not heal: Yes Are your legs discolored or bluish: Yes PVD Past Medical & Familial Hx - Past Medical History Hx Tobacco Use: No Hx Diabetes Mellitus Type 1: No Hx Diabetes Mellitus Type 2: Yes Hx Hypercholesterolemia: Yes Hx Hypertension: Yes Hx Transient Ischemic Attacks (TIA): No
--- NOTE | 2017-03-26 15:12 | HP ---
DATE OF SERVICE: 03/25/2017 MAIN COMPLAINT: Right foot ulcerations, deep; osteomyelitis, sent by squaring shear operator. HISTORY OF PRESENT ILLNESS: This is a 67-year-old male who has multiple medical problems including diabetes, history of foot infections, multiple surgeries, gallbladder removal, osteomyelitis and abscess of the spine, hypertension, chronic back pain, referred to the emergency room for IV antibiotic for his right foot osteomyelitis and ulcerations. The patient has a history of surgeries, multiple times. He has been seen by Dr. Rich as an outpatient and has been followed up on a regular basis; however, his infection seems getting worse, and possibly, the right foot, the small digit, fifth metatarsal site could be an ulceration and infection and possible osteomyelitis. The patient denied any fever, nausea, or vomiting. He is taking his meds on a regular basis; however, he may forget due to his mild cognitive impairment. PAST MEDICAL AND SURGICAL HISTORY: As in the present illness. He has diabetes, hypertension, history of stent placement, foot ulcerations, osteomyelitis in the past with surgery done, also history of coronary artery disease, history of MRSA bacteremia in the past, osteomyelitis of the spine with decompression and laminectomy in 2016, and also has amputation of the right second toe in the past of the right foot. ALLERGIES: FAR WE KNOW, THE PATIENT HAS NO ALLERGIES. SOCIAL HISTORY: He quit smoking. No drinking. He lives with a girlfriend, she is supportive. The patient walks independently to the bathroom, daily activity. REVIEW OF SYSTEMS: No constipation. No diarrhea. No nausea. No vomiting. No short of breath. No chest pain. He does have chronic back pain and currently on methadone for that. MEDICATIONS AT HOME: He does take multiple medications that he is currently taking which include clonazepam 1 mg b.i.d.; Lipitor 40 at bedtime; Lopressor, he was taking 50 mg b.i.d.; methadone 40 and 30, total daily dose 70 mg daily; taking Pepcid 40 mg daily; multivitamins once a day; metformin he was taking 1000 b.i.d. PHYSICAL EXAMINATION: GENERAL: The patient is seen sitting on the bed, in no distress, girlfriend next to him. He has no other complaint other than since getting the antibiotic waiting for the results of his tests. VITAL SIGNS: Temperature is 97.7, heart rate 53, blood pressure 119/61, respirations 20, and sat 99%. HEAD AND NECK: Normal. No JVD. No thyromegaly. CHEST: Clear. Good air entry. CARDIAC: First sound and second sound normal. ABDOMEN: Soft and nontender. EXTREMITIES: There is a small toe ulceration in the base of metatarsal at the plantar surface at the bottom of his right foot and history of a scar and surgeries in the bottom of the foot from previous surgeries, there is some edema. NEUROLOGIC: The patient seems walking to the bathroom, steady, and no focal deficits. LABORATORY DATA: White count 9.6, hemoglobin 10.3, hematocrit 32.6, and platelets 208. PT is normal 11.8, INR 1.09, PTT 32. Chemistry includes sodium 138, potassium 4.7, chloride 97, bicarb 31, BUN 25, and creatinine 0.9. Liver function test is normal, and albumin and globulin are normal. His C-reactive protein was high at 15. Hemoglobin A1c is 5.6. REPORTS: Chest x-ray shows no active pulmonary disease. There is a right infrahilar patchy infiltrate that has been resolved, perihilar nodular opacity. We will consider CT chest for further eval. The patient had electrocardiogram which revealed normal sinus rhythm; right bundle-branch block, left anterior fascicular block/bifascicular block, cannot rule out inferior infarction. IMPRESSION AND PLAN: 1. This is a 67-year-old male, came in with left foot infection, osteomyelitis. We will admit the patient for IV Teflaro; infectious disease consult; Dr. Rich, podiatry consult. The patient may need partial amputation of the fifth toe, small toe if infected with osteomyelitis. We will continue current IV antibiotic. Follow up with the bank consultant. 2. Diabetes. Monitor his blood sugar. Hemoglobin A1c was perfect. We will continue to monitor. We may decrease the dosage of the medications. 3. Hypercholesterolemia, coronary artery disease. We will continue current medications. 4. Chronic back pain, on methadone. We will continue that. We will follow up clinically. 5. The patient does have also chronic anxiety. He is getting Klonopin 1 mg twice a day. We will monitor the patient's condition on a daily basis. 6. We will add Lovenox for deep venous thrombosis prophylaxis. Tate Villa MD [facility] # [id number]
--- NOTE | 2017-03-26 15:19 | CP.PCM.PN ---
<Yamel Silverman - Last Filed: 03/26/17 22:05> Subjective - Date & Time of Evaluation Date of Evaluation: 03/26/17 Time of Evaluation: 15:19 - Subjective Subjective: Progress Note - Dr. Fry 67 year old male patient PMHx DM, HTN, hx of osteomyelitis, previous right foot amputation seen at bedside for right foot 5th metatarsal ulceration and osteomyelitis. Patient seen resting comfortably, AAOx3 and NAD. Patient is accompanied by at bedside. Patient denies any acute events overnight. Patient states he went for his MRI today. Patient aware he is going to surgery Wednesday afternoon for treatment of OM. Patient denies N/V/F/D/C/SOB. No other pedal complaints at this time. Objective - Vital Signs/Intake and Output Vital Signs (last 24 hours): Temp Pulse Resp BP Pulse Ox 97.6 F 59 L 20 138/73 95 03/26/17 07:30 03/26/17 07:30 03/26/17 07:30 03/26/17 07:30 03/26/17 07:30 Intake and Output: 03/26/17 03/26/17 06:59 18:59 Intake Total 1140 Output Total 850 Balance 290 - Medications Medications: Current Medications Atorvastatin Calcium (Lipitor) 40 mg PO DIN [facility] Last Admin: 03/25/17 18:11 Dose: 40 mg Clonazepam (Klonopin) 1 mg PO Q12H [facility] PRN Reason: Protocol Enoxaparin Sodium (Lovenox) 40 mg SC DAILY [facility] PRN Reason: Protocol Last Admin: 03/26/17 10:02 Dose: 40 mg Famotidine (Pepcid) 40 mg PO HS [facility] Last Admin: 03/25/17 22:00 Dose: 40 mg Ceftaroline Fosamil 600 mg/ (Sodium Chloride) 100 mls @ 100 mls/hr IVPB Q12 [facility] PRN Reason: Protocol Stop: 04/01/17 10:01 Last Admin: 03/26/17 12:29 Dose: 100 mls/hr Metformin HCl (Glucophage) 500 mg PO DAILY [facility] Last Admin: 03/26/17 10:01 Dose: 500 mg Methadone HCl (Methadone) 40 mg PO DAILY [facility] Last Admin: 03/26/17 10:01 Dose: 40 mg Methadone HCl (Methadone) 30 mg PO HS [facility] Last Admin: 03/25/17 22:00 Dose: 30 mg Metoprolol Tartrate (Lopressor) 25 mg PO BRKDIN [facility] Multivitamins/Minerals (Therapeutic-M Tab) 1 tab PO 0800 [facility] Last Admin: 03/26/17 08:24 Dose: 1 tab - Labs Labs: 03/26/17 07:39 03/26/17 07:39 PT 11.8 Seconds (9.9-11.8) 03/24/17 16:21 INR 1.09 (0.93-1.08) H 03/24/17 16:21 APTT 32.4 Seconds (23.7-30.8) H 03/24/17 16:21 - Constitutional Appears: Well, Non-toxic, No Acute Distress - Extremities Exam Additional comments: RLE focused physical exam: Dressing appears clean/dry/intact with no strikethrough noted. VASC: DP and PT pulses palpable. CFT WNL. TG warm to warm. No edema noted to plantarlateral 5th metatarsal head. NEURO: Protective sensation diminished. DERM: Ulceration measuring approximately 1.5 x 1.3 cm noted to plantar aspect of 5th met head, +probe to bone, +malodor. No fluctuance, purulence, drainage noted. Ulcer is noted to have a fibrous base with a hyperkeratotic rim. ORTHO: Tenderness to palpation plantar ulceration - Neurological Exam Neurological Exam: Alert, Awake, Oriented x3 - Psychiatric Exam Psychiatric exam: Normal Affect, Normal Mood Assessment and Plan - Assessment and Plan (Free Text) Assessment: 67 year old male PMHx DM, HTN, hx of right foot osteomyelitis with 5th met head plantar ulceration + osteomyelitis Plan: Patient seen and evaluated Discussed with attending, Dr. Fry Chart, vitals, labs reviewed = afebrile, WBC WNL @ 6.3, Crp >15.00, ESR 54 To OR 03/29/17 @ 4:30 PM for right 5th ray partial amputation Right foot dressed with DSD Right foot XR: Lucency at the distal 5th metatarsal suggests osteomyelitis with little or no soft tissue identified at its plantar base. MRI can be utilized for further evaluation of potential osteomyelitis RLE MRI results reviewed: +OM 5th met head along with adjacent signal abormality at corresponding proximal phalanx also consistent with acute OM RLE IVELISSE/PVR results = normal IVELISSE at rest, normal waveforms Podiatry will continue to follow while in house <Kishan Fry - Last Filed: 03/27/17 08:24> Objective - Vital Signs/Intake and Output Vital Signs (last 24 hours): Temp Pulse Resp BP Pulse Ox 97 F L 52 L 18 117/66 94 L 03/27/17 07:55 03/27/17 08:15 03/27/17 07:55 03/27/17 08:15 03/27/17 07:55 Intake and Output: 03/27/17 03/27/17 06:59 18:59 Intake Total 220 Balance 220 - Medications Medications: Current Medications Atorvastatin Calcium (Lipitor) 40 mg PO DIN [facility] Last Admin: 03/26/17 18:08 Dose: 40 mg Clonazepam (Klonopin) 1 mg PO Q12H [facility] PRN Reason: Protocol Last Admin: 03/26/17 20:22 Dose: 1 mg Enoxaparin Sodium (Lovenox) 40 mg SC DAILY [facility] PRN Reason: Protocol Last Admin: 03/26/17 10:02 Dose: 40 mg Famotidine (Pepcid) 40 mg PO HS [facility] Last Admin: 03/26/17 21:08 Dose: 40 mg Ceftaroline Fosamil 600 mg/ (Sodium Chloride) 100 mls @ 100 mls/hr IVPB Q12 [facility] PRN Reason: Protocol Stop: 04/01/17 10:01 Last Admin: 03/26/17 21:24 Dose: 100 mls/hr Metformin HCl (Glucophage) 500 mg PO DAILY [facility] Last Admin: 03/26/17 10:01 Dose: 500 mg Methadone HCl (Methadone) 40 mg PO DAILY [facility] Last Admin: 03/26/17 10:01 Dose: 40 mg Methadone HCl (Methadone) 30 mg PO HS [facility] Last Admin: 03/26/17 21:09 Dose: 30 mg Metoprolol Tartrate (Lopressor) 25 mg PO BRKDIN [facility] Last Admin: 03/27/17 08:15 Dose: Not Given Multivitamins/Minerals (Therapeutic-M Tab) 1 tab PO 0800 [facility] Last Admin: 03/26/17 08:24 Dose: 1 tab - Labs Labs: 03/26/17 07:39 03/26/17 07:39 PT 11.8 Seconds (9.9-11.8) 03/24/17 16:21 INR 1.09 (0.93-1.08) H 03/24/17 16:21 APTT 32.4 Seconds (23.7-30.8) H 03/24/17 16:21 Attending/Attestation - Attestation I have personally seen and examined this patient.: Yes I have fully participated in the care of the patient.: Yes I have reviewed all pertinent clinical information, including history, physical exam and plan: Yes
--- NOTE | 2017-03-26 16:09 | MRI ---
MRI right foot History: Prominent ulceration at the level of the 5th metatarsal head. Evaluate for osteomyelitis. Comparison: X-ray dated 03/24/2017 Technique: Multi-echo multiplanar sequences were performed through the right foot without the use of intravenous contrast. Findings: Prominent soft tissue ulcer at the level of the 5th metatarsal head. Subluxation of the 5th proximal phalanx in relationship to metatarsal head. Prominent signal abnormality seen within the 5th metatarsal head extending into metatarsal shaft demonstrating decreased T1 signal and increased STIR signal consistent with an acute osteomyelitis. Adjacent signal abnormality within the corresponding 5th proximal phalanx with decreased T1 signal and increased STIR signal also consistent with acute osteomyelitis. Patchy reactive edema seen at the 5th middle and distal phalanges. Patchy reactive edema seen at the level of the 4th metatarsal shaft which may represent reactive edema. Developing acute and or early acute osteomyelitic changes at this level cannot entirely be excluded. Patchy reactive bone marrow edema seen within the lateral aspect of the mid calcaneus with minimal patchy decreased T1 signal at this level. This is nonspecific however underlying developing acute and or early acute osteomyelitic changes cannot entirely be excluded. Relative failure fat suppression at the level of the 3rd and 4th phalanges, nonspecific. Milder patchy reactive edema seen within the visualized tarsal bones, nonspecific. Resection of the 2nd digit to the metatarsal head. Postsurgical and/or bony destructive changes at the 2nd 3rd and 4th MTP joint spaces with foreshortening of the metatarsal heads. Mild patchy reactive edema in the 3rd metatarsal head. Clinical correlation. Moderate hallux valgus deformity. Plantar and dorsal calcaneal spurring. Anterior extensor tendons are preserved. Moderate tenosynovitis of the flexor hallucis longus tendon sheath. Remainder of the medial flexor tendons are preserved. Peroneal tendons are preserved. Anterior and posterior tibiofibular ligaments as well as talofibular ligaments are preserved. Mild increased signal seen within the visualized Lisfranc ligament suggestive for moderate grade sprain with some interstitial delamination. Sinus tarsi preserved. Achilles tendon preserved. Plantar fascia preserved. Trace ankle joint effusion. Deltoid ligament preserved. Impression: 1. Prominent soft tissue ulcer at the level of the 5th metatarsal head. Subluxation of the 5th proximal phalanx in relationship to metatarsal head. Prominent signal abnormality seen within the 5th metatarsal head extending into metatarsal shaft demonstrating decreased T1 signal and increased STIR signal consistent with an acute osteomyelitis. Adjacent signal abnormality within the corresponding 5th proximal phalanx with decreased T1 signal and increased STIR signal also consistent with acute osteomyelitis. Patchy reactive edema seen at the 5th middle and distal phalanges. 2. Patchy reactive edema seen at the level of the 4th metatarsal shaft which may represent reactive edema. Developing acute and or early acute osteomyelitic changes at this level cannot entirely be excluded. 3. Patchy reactive bone marrow edema seen within the lateral aspect of the mid calcaneus with minimal patchy decreased T1 signal at this level. This is nonspecific however underlying developing acute and or early acute osteomyelitic changes cannot entirely be excluded. 4. Relative failure of fat suppression at the level of the 3rd and 4th phalanges, nonspecific. 5. Milder patchy reactive edema seen within the visualized tarsal bones, nonspecific. 6. Resection of the 2nd digit to the metatarsal head. 7. Postsurgical and/or bony destructive changes at the 2nd 3rd and 4th MTP joint spaces with foreshortening of the metatarsal heads. 8. Moderate hallux valgus deformity. 9. Plantar and dorsal calcaneal spurring. 10. Anterior extensor tendons are preserved. Moderate tenosynovitis of the flexor hallucis longus tendon sheath. Remainder of the medial flexor tendons are preserved. 11. Mild increased signal seen within the visualized Lisfranc ligament suggestive for moderate grade sprain with some interstitial delamination. 12. Mild patchy reactive edema in the 3rd metatarsal head. Clinical correlation.
--- NOTE | 2017-03-26 16:13 | CT ---
PROCEDURE: CT Chest without contrast HISTORY: Gastrointestinal hemorrhage based on ICD 10 code Abdominal tenderness based on ICD 10 code. COMPARISON: 01/29/2017 CT thorax. TECHNIQUE: Contiguous axial images were obtained through the chest without intravenous contrast enhancement. Sagittal and coronal reconstructions were performed. Maximum intensity projection (MIP) reconstructed images in the following planes: Radiation dose (DLP): 362.76 mGy-cm. This CT exam was performed using one or more of the following dose reduction techniques: Automated exposure control, adjustment of the mA and/or kV according to patient size, and/or use of iterative reconstruction technique. FINDINGS: LUNGS: Chronic infiltrates/masslike process basilar segment right lower lobe. On sagittal reconstructed images this mass measures 2.4 x 4.1 cm, previously measuring 2.9 x 4.2 cm. There is no associated endobronchial lesion or extrinsic compression on right lower lobe or segmental bronchi. There is a component of lower airway disease/ bronchitis with peribronchial thickening. MEDIASTINUM: Unremarkable thoracic aorta. No aneurysm. Normal sized heart. Main pulmonary artery unremarkable. No vascular congestion. No lymphadenopathy. PLEURA: Focal pleural thickening without discrete pleural effusion or pleural-based mass. BONES: Stable findings T4-T9 identified. No evidence of hardware failure. Dhaliwal rods and interpedicular screws remain in stable position. UPPER ABDOMEN: Grossly unremarkable. OTHER FINDINGS: Postoperative findings related to median sternotomy. IMPRESSION: Chronic right lower lobe infiltrate/mass unchanged compared to the prior study. Additional benign and incidental findings noted.
--- NOTE | 2017-03-26 17:51 | CP.PCM.PN ---
<Erlin Perea - Last Filed: 03/26/17 17:58> Subjective - Date & Time of Evaluation Date of Evaluation: 03/26/17 Time of Evaluation: 17:49 - Subjective Subjective: GI: Dr. Edouard Pt seen and examined. Resting comfortably in bed. No complaints overnight. Pain in foot controlled. Tolerating diet. No N/V/D. Objective - Vital Signs/Intake and Output Vital Signs (last 24 hours): Temp Pulse Resp BP Pulse Ox 98.5 F 52 L 20 145/73 99 03/26/17 16:19 03/26/17 16:19 03/26/17 16:19 03/26/17 16:19 03/26/17 16:19 Intake and Output: 03/26/17 03/26/17 06:59 18:59 Intake Total 1140 Output Total 850 Balance 290 - Medications Medications: Current Medications Atorvastatin Calcium (Lipitor) 40 mg PO DIN [facility] Last Admin: 03/25/17 18:11 Dose: 40 mg Clonazepam (Klonopin) 1 mg PO Q12H [facility] PRN Reason: Protocol Enoxaparin Sodium (Lovenox) 40 mg SC DAILY [facility] PRN Reason: Protocol Last Admin: 03/26/17 10:02 Dose: 40 mg Famotidine (Pepcid) 40 mg PO HS [facility] Last Admin: 03/25/17 22:00 Dose: 40 mg Ceftaroline Fosamil 600 mg/ (Sodium Chloride) 100 mls @ 100 mls/hr IVPB Q12 [facility] PRN Reason: Protocol Stop: 04/01/17 10:01 Last Admin: 03/26/17 12:29 Dose: 100 mls/hr Metformin HCl (Glucophage) 500 mg PO DAILY [facility] Last Admin: 03/26/17 10:01 Dose: 500 mg Methadone HCl (Methadone) 40 mg PO DAILY [facility] Last Admin: 03/26/17 10:01 Dose: 40 mg Methadone HCl (Methadone) 30 mg PO HS [facility] Last Admin: 03/25/17 22:00 Dose: 30 mg Metoprolol Tartrate (Lopressor) 25 mg PO BRKDIN [facility] Multivitamins/Minerals (Therapeutic-M Tab) 1 tab PO 0800 [facility] Last Admin: 03/26/17 08:24 Dose: 1 tab - Labs Labs: 03/26/17 07:39 03/26/17 07:39 PT 11.8 Seconds (9.9-11.8) 03/24/17 16:21 INR 1.09 (0.93-1.08) H 03/24/17 16:21 APTT 32.4 Seconds (23.7-30.8) H 03/24/17 16:21 - Constitutional Appears: Non-toxic, No Acute Distress - Head Exam Head Exam: ATRAUMATIC, NORMOCEPHALIC - Eye Exam Eye Exam: EOMI. absent: Scleral icterus - ENT Exam ENT Exam: Mucous Membranes Moist - Neck Exam Neck Exam: Full ROM - Respiratory Exam Respiratory Exam: NORMAL BREATHING PATTERN. absent: Accessory Muscle Use, Respiratory Distress - GI/Abdominal Exam GI & Abdominal Exam: Soft. absent: Distended, Firm, Guarding, Rigid, Tenderness , Rebound - Extremities Exam Extremities Exam: Pedal Edema. absent: Calf Tenderness - Neurological Exam Neurological Exam: Alert, Awake, Oriented x3 Assessment and Plan - Assessment and Plan (Free Text) Assessment: 67M w. Anemia, Periportal lymph nodes, and Chronic hepatitis C -abd U/S ordered, follow up on results -monitor H and H -recommend elective colonoscopy -recommend pt f/u outpt for management of Hep C -GI/DVT prophylaxis -d/w attending Zemaitis PGY3 <Megan Edouard V - Last Filed: 03/28/17 08:43> Objective - Vital Signs/Intake and Output Vital Signs (last 24 hours): Temp Pulse Resp BP Pulse Ox 98.5 F 52 L 20 145/73 99 03/26/17 16:19 03/26/17 16:19 03/26/17 16:19 03/26/17 16:19 03/26/17 16:19 - Medications Medications: Current Medications Atorvastatin Calcium (Lipitor) 40 mg PO DIN [facility] Last Admin: 03/26/17 18:08 Dose: 40 mg Clonazepam (Klonopin) 1 mg PO Q12H [facility] PRN Reason: Protocol Last Admin: 03/26/17 20:22 Dose: 1 mg Enoxaparin Sodium (Lovenox) 40 mg SC DAILY [facility] PRN Reason: Protocol Last Admin: 03/26/17 10:02 Dose: 40 mg Famotidine (Pepcid) 40 mg PO HS [facility] Last Admin: 03/26/17 21:08 Dose: 40 mg Ceftaroline Fosamil 600 mg/ (Sodium Chloride) 100 mls @ 100 mls/hr IVPB Q12 [facility] PRN Reason: Protocol Stop: 04/01/17 10:01 Last Admin: 03/26/17 21:24 Dose: 100 mls/hr Metformin HCl (Glucophage) 500 mg PO DAILY [facility] Last Admin: 03/26/17 10:01 Dose: 500 mg Methadone HCl (Methadone) 40 mg PO DAILY [facility] Last Admin: 03/26/17 10:01 Dose: 40 mg Methadone HCl (Methadone) 30 mg PO HS [facility] Last Admin: 03/26/17 21:09 Dose: 30 mg Metoprolol Tartrate (Lopressor) 25 mg PO BRKDIN [facility] Last Admin: 03/26/17 18:08 Dose: 25 mg Multivitamins/Minerals (Therapeutic-M Tab) 1 tab PO 0800 [facility] Last Admin: 03/26/17 08:24 Dose: 1 tab - Labs Labs: 03/26/17 07:39 03/26/17 07:39 PT 11.8 Seconds (9.9-11.8) 03/24/17 16:21 INR 1.09 (0.93-1.08) H 03/24/17 16:21 APTT 32.4 Seconds (23.7-30.8) H 03/24/17 16:21 Attending/Attestation - Attestation I have personally seen and examined this patient.: Yes I have fully participated in the care of the patient.: Yes I have reviewed all pertinent clinical information, including history, physical exam and plan: Yes Notes (Text): This is an addendum to GI progress report dictated by resident.The patient was seen and examined earlier. Medical records, lab studies, imagings were reviewed. Last 24 hours events reviewed. Agreed with the above treatment plan as outlined in resident's notes the with the addition of the following n examination abdomen soft no tenderness. Sonogram reviewed. Recommended the treatment of hep C and colonoscopy evaluation 03/26/17 23:54
--- NOTE | 2017-03-27 01:11 | CARD ---
APPROVED REPORT EKG Measurement Heart [id number] <Conclusion> Sinus bradycardia Left axis deviation Incomplete right bundle branch block Abnormal ECG
[2017-03-27] MEDS: Multivitamin With Minerals Tab PO SCH (08:37)
[2017-03-27 08:55] LABS: ALB/GLOB RATIO 0.9 (1.1-1.8); ALKALINE PHOSPHATASE 89 U/L (38-126); ALT/SGPT 41 U/L (7-56); AST/SGOT 50 U/L (17-59); BILIRUBIN,TOTAL 0.5 mg/dL (0.2-1.3); BLOOD UREA NITROGEN 15 mg/dL (7-21); CALCIUM 8.6 mg/dL (8.4-10.5); CARBON DIOXIDE 34 mmol/L (21-33); CHLORIDE 97 mmol/L (98-107); GFR AFRICAN-AMERICAN > 60; GLUCOSE,RANDOM 100 mg/dL (70-110); POTASSIUM 5.5 mmol/L (3.6-5.0); SODIUM 141 mmol/L (132-148); TOTAL PROTEIN 7.5 g/dL (5.8-8.3)
--- NOTE | 2017-03-27 09:52 | US ---
HISTORY: chronic hep C COMPARISON: CT abdomen and pelvis from 08/17/2016 TECHNIQUE: Grayscale imaging was performed. FINDINGS: LIVER: Measures 13.6 cm. There is mild diffuse increased echogenicity of the liver parenchyma. No mass. No intrahepatic bile duct dilatation. GALLBLADDER: Surgically absent. COMMON BILE DUCT: Measures 12 mm. There is mild diffuse dilatation in keeping with postcholecystectomy status. PANCREAS: The pancreas is normal in size and echotexture. There is mild diffuse prominence of the pancreatic duct which measures 3 mm. RIGHT KIDNEY: Measures 11.3cm. Normal echogenicity. No calculus, mass, or hydronephrosis. LEFT KIDNEY: Measures 9.5cm. Normal echogenicity. No calculus, mass, or hydronephrosis. SPLEEN: There is mild splenomegaly. No mass. AORTA: No aneurysmal dilatation. IVC: Unremarkable. OTHER FINDINGS: None. IMPRESSION: 1. Fatty infiltration of the liver and mild splenomegaly. 2. Mild diffuse dilatation of the common bile duct in keeping with postcholecystectomy status.
[2017-03-27] MEDS: Enoxaparin 40 mg Syringe SC SCH (10:11)
[2017-03-27] MEDS: Ceftaroline 600 MG in Sodium Chloride 0.9% 100 ML IVPB SCH ×2 (10:12→22:18)
--- NOTE | 2017-03-27 10:15 | PN ---
DATE: 03/27/2017 SUBJECTIVE: The patient is in bed, in no acute distress. PHYSICAL EXAMINATION: VITAL SIGNS: Temperature is 97, blood pressure 117/60, respiratory rate 18, and heart rate of 52. HEENT: Unremarkable. NECK: Supple. LUNGS: Decreased breath sounds. HEART: Normal S1 and S2. ABDOMEN: Soft. LABORATORY DATA: Reveals a white count of 6.3 and hemoglobin of 10. Chemistries reveals a BUN of 15 and creatinine of 0.8. Blood cultures are negative. Urine cultures are negative. CAT of the chest, chronic right lower lobe infiltrate or mass is unchanged. ASSESSMENT AND PLAN: This is a 67-year-old male seen earlier today in room 569, bed 2, chronically ill, cachectic with a body mass index of 22 admitted with right foot infected ulcer on the fifth metatarsal amputation and previous osteomyelitis and new onset of osteomyelitis, skin and skin soft tissue infection with a previous laminectomy and hardware placement, history of healthcare associated pneumonia, history of methicillin-resistant Staphylococcus aureus bacteriemia, and diskitis, and osteomyelitis, status post decompression laminectomy, history of cholelithiasis and cholecystectomy, and coronary artery disease, hypertension, diabetes, dementia, right foot osteomyelitis and currently on Teflaro. The patient had a MRI of the foot, which is consistent with acute osteomyelitis on the fifth metatarsal head; will need prolong antibiotic therapy. Roel English MD
--- NOTE | 2017-03-27 14:02 | PN ---
SUBJECTIVE: A 67-year-old male, well-known to the [facility] Wound Care Team, seen at bedside for continued evaluation and management for osteomyelitis of his right 5th metatarsal and distal phalanges. The patient is scheduled for surgical intervention on 03/29, at 4:30 p.m. The patient was seen not wearing his surgical shoe as he has been told adamantly over the course of the last several months. PHYSICAL EXAMINATION: VITAL SIGNS: Reveal temperature of 97, pulse rate of 52, blood pressure of 117/66, and respiratory rate of 18. EXTREMITIES: Briefly palpable pedal pulses noted bilaterally. Right foot presents with a full-thickness ulceration at the plantar aspect of the 5th metatarsophalangeal joint that measures approximately 1.5 x 1.4 cm. There is noted to be exposed 5th metatarsal head. There is malodor. There is no purulence. There is only serous drainage at this point. Base of the ulcer is primarily fibrotic. The patient is unable to detect 5.07 g monofilament wire testing bilaterally. LABORATORY FINDINGS: Reveal white count of 6.3, hemoglobin of 10, hematocrit of 32.3, platelet count of 178 and ESR of 54. MRI of the right foot reveals osteomyelitis of the distal 5th metatarsal head as well as in the proximal phalanges. Arterial Doppler performed on 03/25/2017 reveals normal ABIs at rest with left tibial occlusive disease, but the right lower extremity has relatively normal PVR wavelengths at all levels. ASSESSMENT: A 67-year-old male with longstanding, uncontrolled insulin-dependant diabetes with neuropathy, who was seen for osteomyelitis of the 5th metatarsal head with accompanying plantar ulceration. PLAN: The patient was seen and evaluated. Once again, he was told that he cannot take one step without using his surgical shoe. The patient states he understands, although compliance has been extremely spotty. The patient's foot was cleansed with normal sterile saline. We applied Maxorb and a dry sterile dressing. The patient is scheduled for 5th ray resection on the right foot for 03/29/2017, at 4:30 p.m.; we will keep him n.p.o. Wednesday after breakfast. The patient will be seen and followed daily. Kishan Fry DPM [facility] # [id number]
[2017-03-27] MEDS ORDERED: Sod Polystyrene Sulf 15 gm/60 ml Oral Susp PO ONE (15:42)
--- NOTE | 2017-03-28 06:55 | PN ---
DATE: 03/27/2017 SUBJECTIVE: This patient was seen and evaluated earlier. The patient is found to have osteomyelitis of the right fifth metatarsal and distal phalangeal area. The plan was to have a surgical intervention on 03/29/2017. The patient with a history of peripheral neuropathy, had a chronic hepatitis C. Recent sonogram reviewed showed no focal lesion. PHYSICAL EXAMINATION: VITAL SIGNS: Temperature 97.6, blood pressure 154/73, pulse 45, and respirations 18. HEENT: Atraumatic. Anicteric. NECK: Supple. HEART: S1 and S2 heard. LUNGS: Bilateral air entry present. ABDOMEN: Soft. LABORATORY DATA: His PCR viral load was 6.9 million. The patient is also anemic, but the hemoglobin remains stable now. IMPRESSION: His liver function tests are normal. Would recommend repeat hepatitis C, PCR and also genotype. Would also requested for alpha-fetoprotein tumor markers. Thank you very much for allowing me to participate in the care of the patient. Megan Edouard MD J[facility]
[2017-03-28] MEDS: Enoxaparin 40 mg Syringe SC SCH (09:15)
[2017-03-28] MEDS: Multivitamin With Minerals Tab PO SCH (09:16)
--- NOTE | 2017-03-28 09:17 | CP.PCM.PN ---
<Margoth Pierce - Last Filed: 03/28/17 09:56> Subjective - Date & Time of Evaluation Date of Evaluation: 03/28/17 Time of Evaluation: 09:00 - Subjective Subjective: Progress Note - Dr. Fry 67 year old male patient seen at bedside this morning for right foot 5th met ulceration with osteomyelitis. Seen resting comfortably in bedside chair at time of visit. Denies any pain or discomfort to the foot at this time. Denies f/ n/v/c/sob/cp/weakness or dizziness. Is aware of plan for OR tomorrow afternoon for amputation. Seen wearing surgical shoe to the right foot today. Objective - Vital Signs/Intake and Output Vital Signs (last 24 hours): Temp Pulse Resp BP Pulse Ox 97.9 F 46 L 20 144/73 95 03/28/17 07:00 03/28/17 07:00 03/28/17 07:00 03/28/17 07:00 03/28/17 07:00 Intake and Output: 03/28/17 03/28/17 06:59 18:59 Intake Total 960 Balance 960 - Medications Medications: Current Medications Atorvastatin Calcium (Lipitor) 40 mg PO DIN [facility] Last Admin: 03/27/17 17:39 Dose: 40 mg Clonazepam (Klonopin) 1 mg PO Q12H [facility] PRN Reason: Protocol Last Admin: 03/27/17 21:33 Dose: 1 mg Enoxaparin Sodium (Lovenox) 40 mg SC DAILY [facility] PRN Reason: Protocol Last Admin: 03/27/17 10:11 Dose: 40 mg Famotidine (Pepcid) 40 mg PO HS [facility] Last Admin: 03/27/17 21:33 Dose: 40 mg Ceftaroline Fosamil 600 mg/ (Sodium Chloride) 100 mls @ 100 mls/hr IVPB Q12 [facility] PRN Reason: Protocol Stop: 04/01/17 10:01 Last Admin: 03/27/17 22:18 Dose: 100 mls/hr Metformin HCl (Glucophage) 500 mg PO DAILY [facility] Last Admin: 03/27/17 10:11 Dose: 500 mg Methadone HCl (Methadone) 40 mg PO DAILY [facility] Last Admin: 03/27/17 10:11 Dose: 40 mg Methadone HCl (Methadone) 30 mg PO HS [facility] Last Admin: 03/27/17 21:33 Dose: 30 mg Metoprolol Tartrate (Lopressor) 25 mg PO BRKDIN [facility] Last Admin: 03/27/17 17:40 Dose: Not Given Multivitamins/Minerals (Therapeutic-M Tab) 1 tab PO 0800 [facility] Last Admin: 03/27/17 08:37 Dose: 1 tab - Labs Labs: 03/26/17 07:39 03/27/17 08:40 PT 11.8 Seconds (9.9-11.8) 03/24/17 16:21 INR 1.09 (0.93-1.08) H 03/24/17 16:21 APTT 32.4 Seconds (23.7-30.8) H 03/24/17 16:21 - Constitutional Appears: Well, Non-toxic, No Acute Distress - Extremities Exam Extremities Exam: absent: Calf Tenderness Additional comments: RLE focused physical exam: Dressing appears clean/dry/intact with no strikethrough noted. VASC: DP and PT pulses palpable. CFT WNL. TG warm to warm. No edema noted to plantarlateral 5th metatarsal head. NEURO: Protective sensation diminished. DERM: Ulceration measuring approximately 1.5 x 1.3 cm noted to plantar aspect of 5th met head, +probe to bone, +malodor. No fluctuance, purulence, drainage noted. Ulcer is noted to have a fibrous base with a hyperkeratotic rim. ORTHO: Tenderness to palpation plantar ulceration - Neurological Exam Neurological Exam: Alert, Awake, Oriented x3 - Psychiatric Exam Psychiatric exam: Normal Affect, Normal Mood Assessment and Plan - Assessment and Plan (Free Text) Assessment: 67 year old male with 5th met head plantar ulceration + osteomyelitis Plan: Patient S&E Discussed with Dr. Fry Chart, vitals, labs reviewed: afebrile Plan for OR tomorrow Mond. 03/29 @ 4:30 for right 5th ray partial amputation NPO after breakfast tomorrow Lovenox to be held tomorrow AM Right foot dressed with DSD c/w surgical shoe at all times for ambulation Will follow <Kishan Fry - Last Filed: 03/30/17 11:02> Objective - Vital Signs/Intake and Output Vital Signs (last 24 hours): Temp Pulse Resp BP Pulse Ox 98.2 F 50 L 20 131/68 96 03/30/17 07:47 03/30/17 08:31 03/30/17 07:47 03/30/17 08:31 03/30/17 07:47 Intake and Output: 03/30/17 03/30/17 06:59 18:59 Intake Total 600 360 Output Total 200 500 Balance 400 -140 - Medications Medications: Current Medications Acetaminophen (Tylenol 325mg Tab) 650 mg PO Q6H PRN PRN Reason: Pain, Mild (1-3) Atorvastatin Calcium (Lipitor) 40 mg PO DIN [facility] Last Admin: 03/29/17 20:14 Dose: 40 mg Clonazepam (Klonopin) 1 mg PO Q12H [facility] PRN Reason: Protocol Last Admin: 03/30/17 08:33 Dose: 1 mg Enoxaparin Sodium (Lovenox) 40 mg SC DAILY [facility] PRN Reason: Protocol Last Admin: 03/30/17 10:16 Dose: 40 mg Famotidine (Pepcid) 40 mg PO HS [facility] Last Admin: 03/29/17 21:58 Dose: 40 mg Ceftaroline Fosamil 600 mg/ (Sodium Chloride) 100 mls @ 100 mls/hr IVPB Q12 [facility] PRN Reason: Protocol Stop: 04/01/17 10:01 Last Admin: 03/30/17 10:21 Dose: 100 mls/hr Metformin HCl (Glucophage) 500 mg PO DAILY [facility] Last Admin: 03/30/17 10:17 Dose: 500 mg Methadone HCl (Methadone) 30 mg PO 1900 [facility] Methadone HCl (Methadone) 40 mg PO 0800 [facility] Last Admin: 03/30/17 08:31 Dose: 40 mg Metoprolol Tartrate (Lopressor) 25 mg PO BRKDIN [facility] Last Admin: 03/30/17 08:31 Dose: Not Given Multivitamins/Minerals (Therapeutic-M Tab) 1 tab PO 0800 [facility] Last Admin: 03/30/17 10:17 Dose: 1 tab Ondansetron HCl (Zofran Inj) 4 mg IVP ONCE PRN PRN Reason: Nausea/Vomiting - Labs Labs: 03/30/17 08:46 03/30/17 08:46 PT 11.8 Seconds (9.9-11.8) 03/24/17 16:21 INR 1.09 (0.93-1.08) H 03/24/17 16:21 APTT 32.4 Seconds (23.7-30.8) H 03/24/17 16:21 Attending/Attestation - Attestation I have personally seen and examined this patient.: Yes I have fully participated in the care of the patient.: Yes I have reviewed all pertinent clinical information, including history, physical exam and plan: Yes
[2017-03-28] MEDS: Ceftaroline 600 MG in Sodium Chloride 0.9% 100 ML IVPB SCH ×2 (10:38→21:49)
--- NOTE | 2017-03-28 13:25 | PN ---
SUBJECTIVE: The patient seen in bed in no acute distress. He is comfortable. He is awake and alert. He states he is tolerating his medications well. PHYSICAL EXAMINATION: VITAL SIGNS: Temperature is 97, blood pressure is 140/70, respiratory rate 20, heart rate of 40. HEENT: Unremarkable. NECK: Supple. LUNGS: Decreased breath sounds. HEART: Normal S1 and S2. ABDOMEN: Soft and nontender. No rebound or guarding. No masses. LABORATORY DATA: WBC count is 6.3, hemoglobin of 10, platelets of 178. Coagulation is noted. Chemistries reveal BUN of 15, creatinine of 0.8. Urinalysis is noted. Microbiology reveals the blood cultures are negative. Urine cultures are negative. ASSESSMENT AND PLAN: A 67-year-old male who is chronically ill, cachectic with a body mass index of 22, admitted with a right foot ulcer and a fifth metatarsal amputation, previously osteomyelitis, and new-onset of osteomyelitis, skin and soft tissue infection, history of previous laminectomy and hardware placement, history of healthcare-associated pneumonia, history of methicillin-resistant Staphylococcus aureus bacteremia, discitis and osteomyelitis of the vertebral bone, status post decompression and laminectomy, history of cholelithiasis and cholecystectomy, coronary artery disease, hypertension, diabetes, dementia, with right foot osteomyelitis, currently on Teflaro. The patient's MRI is consistent for osteomyelitis. REVIEW OF THE ORDERS: Confirms the patient to be on Teflaro, will need 4 to 6 weeks of antibiotics with CBC, SMA-18, sed rate and C-reactive protein once weekly. Dr. Margoth Pierce's progress note is reviewed, and the patient is scheduled for OR tomorrow for a right fifth ray partial amputation, n.p.o. after breakfast for surgery tomorrow. Roel English MD
--- NOTE | 2017-03-28 20:48 | PN ---
DATE: 03/28/2017 SUBJECTIVE: The patient is stable clinically. No new complaints. No chest pain. No short of breath. The patient is stable for surgery. PHYSICAL EXAMINATION VITAL SIGNS: Temperature 97, heart rate 60, blood pressure 154/73, respirations 18, and temperature 97% on room air. HEENT: Head and neck exam normal. No JVD. No thyromegaly. CHEST: Clear. Good air entry. CARDIAC: First sound and second sound normal. ABDOMEN: Soft and nontender. EXTREMITIES: No edema except right foot scars from previous surgery and right foot fifth metatarsal plantar surface large ulcerations. NEUROLOGIC: The patient is alert, awake, oriented x3. Moves all extremities. Stable gait. LABORATORY DATA: Blood sugar is 107 and 128 stable. IMPRESSION AND PLAN: 1. Osteomyelitis of the right fifth metatarsal planning surgery tomorrow. Continue IV Teflaro. Seen by Dr. English. 2. Hypokalemia stable. Received Kayexalate. We will repeat labs in the morning. 3. The patient was maintained on low potassium diet. He is off ramipril. 4. Hypertension. 5. Hypercholesterolemia. 6. Diabetes type II stable. Continue current treatment. 7. Chronic back pain. Continue methadone. 8. Chronic anxiety. Continue Klonopin. Continue current management. Followup clinically. The patient is stable for surgery, seen by specialist. Tate Villa MD
--- NOTE | 2017-03-29 00:08 | PN ---
DATE: 03/28/2017 SUBJECTIVE: This patient was seen and evaluated earlier today. The patient is comfortable. The patient is scheduled for surgery tomorrow. PHYSICAL EXAMINATION VITAL SIGNS: Stable. Pulse 47, blood pressure 107/59, temperature is 97.7 and O2 saturation 100%. HEENT: Atraumatic. Anicteric. NECK: Supple. HEART: S1 and S2 heard. LUNGS: Bilateral air entry present. ABDOMEN: Soft. There is no tenderness. LABORATORY DATA: No recent labs today. IMPRESSION AND PLAN: This 67-year-old patient with chronic hepatitis C, admitted with osteomyelitis of the fifth metatarsal and plan for surgery, history chronic back pain, chronic hepatitis C. Sonogram did not reveal any focal lesion. I would request alpha fetoprotein. Asked the tumor marker and also we will request for genotype and viral load. Thank you very much for allowing me to participate in the care of this patient. Megan Edouard MD
--- NOTE | 2017-03-29 01:21 | PN ---
DATE: 03/27/2017 SUBJECTIVE: The patient seems comfortable, stable. No distress. Going for surgery. MRI of his foot done. Seen by specialist, Dr. Rich, Dr. Lucas and Dr. English. Clinically stable. No new complaint. Awaiting for surgery. PHYSICAL EXAMINATION VITAL SIGNS: Temperature 97.6, heart rate is 60, blood pressure 154/73, respirations 18 and saturation 97%. HEAD AND NECK: Normal. No JVD. No thyromegaly. CHEST: Clear with air entry. CARDIAC: First sound and second sound are normal. PELVIC: Normal. ABDOMEN: Soft and nontender. EXTREMITIES: No edema. Right foot, there is deep ulceration under the fifth metatarsal of the little toe. NEUROLOGIC: Stable. Moves all extremities. LABORATORY STUDIES: As follows, sodium 141, potassium 5.5, chloride 97, bicarbonate 34, BUN 15, and creatinine 0.8. Blood sugar 114. Liver function test is normal. IMPRESSION AND PLAN: 1. Hyperkalemia. We will give Kayexalate and repeat lab in the morning. 2. Osteomyelitis, right foot and small toe. Metatarsal head infected, probably osteomyelitis. The patient had been seen by the specialist, planned to go for removal of the small toe and metatarsal head. MRI was positive for edema, fourth metatarsal, represent reactive edema. Early acute osteomyelitis should be considered. 3. Coronary artery disease. hypertension and hypercholesterolemia, seen by Cardiology, Dr. Leif Oleary. We will continue current treatment. 4. Lung nodule, CT of the chest shows nodule, not changed from previous months. We will consider Pulmonary evaluation. 5. Chronic hepatitis C, ultrasound of the liver has been done, shows fatty liver and seen by Dr. Edouard. Continue current therapy. Follow up clinically. Tate Villa MD
[2017-03-29 07:19] LABS: BLOOD UREA NITROGEN 19 mg/dL (7-21); CARBON DIOXIDE 36 mmol/L (21-33); CHLORIDE 100 mmol/L (95-110); GFR AFRICAN-AMERICAN > 60; GLUCOSE,RANDOM 83 mg/dL (70-110); POTASSIUM 5.3 mmol/L (3.6-5.0); SODIUM 143 mmol/L (132-148)
[2017-03-29] MEDS: Multivitamin With Minerals Tab PO SCH (08:11)
[2017-03-29] MEDS ORDERED: Sod Polystyrene Sulf 15 gm/60 ml Oral Susp PO ONE (08:56)
[2017-03-29] MEDS ORDERED: Sodium Chloride 0.9% 1,000 ML IV SCH (09:00)
--- NOTE | 2017-03-29 09:15 | CON ---
PULMONARY CONSULTATION DATE: 03/28/2017 REFERRING PHYSICIAN: Tate Villa MD REASON FOR CONSULTATION: Chronic obstructive lung disease and admitted with osteomyelitis. HISTORY OF PRESENT ILLNESS: This is a 67 years old gentleman with multiple medical problems including diabetes, recurrent foot ulcers and osteomyelitis, history of spine abscess, hypertension, admitted with sepsis found to have right foot osteomyelitis, presently seen by infectious disease. He had a CAT scan done, which shows right lower lobe chronic infiltrate/mass. Denies any significant cough or sputum production. No hemoptysis. No hematemesis. No hematuria. No diarrhea reported. PAST MEDICAL HISTORY: Hypertension, diabetes, coronary artery disease with coronary stent, recurrent osteomyelitis of the foot, and history of spine surgery in the past. ALLERGIES: NONE KNOWN. FAMILY HISTORY: No significant cardiopulmonary disease reported. SOCIAL HISTORY: Recently stop smoking. Denies any alcohol use. MEDICATIONS: He is on ceftaroline 100 mg twice a day, metformin 500 mg daily, Klonopin 1 mg q. 12 hour, Lipitor 40 mg daily, metoprolol tartrate 25 mg twice a day, Lovenox 40 mg daily, methadone 70 mg total daily, Pepcid 40 mg at bedtime, and multivitamins daily. REVIEW OF SYSTEMS: No headache. No rhinitis. No cough. No sputum production. No hemoptysis. No hematemesis. No hematuria. No diarrhea. Had a foot ulcer with dressing. PHYSICAL EXAMINATION: GENERAL: Sitting up in a chair in no acute distress. VITAL SIGNS: Temperature is 98, heart rate is 47, respiratory rate is 20, blood pressure is 107/54 and pulse ox is 100% on room air. HEENT: Moist mucous membranes. Crowded airway. NECK: Supple. No JVD. HEART: S1 and S2. LUNGS: Has a fair airflow with rhonchi. ABDOMEN: Soft and nontender. No organomegaly. EXTREMITIES: He does have a left foot ulcer with dressing. NEUROLOGICAL: Awake and alert, follow simple commands. LABORATORY DATA: Shows hemoglobin 10.3, hematocrit 32.3, WBC 6.3 and platelet is 178. INR 1.09 and PTT 32. Sodium 141, potassium 5.5, chloride 97, bicarbonate 34, BUN is 15, creatinine 0.8, glucose is 107, calcium 8.6, AST 50, ALT 41, alk phos is 89 and albumin is 3.5. Microbiology; blood culture and urine culture there is no growth. He had a CT scan of the chest done, which shows right lower lobe infiltrate/mass. No change from earlier CT. IMPRESSION AND PLAN: Osteomyelitis of the right fifth metatarsal area, hypertension, chronic obstructive lung disease, diabetes, chronic pain syndrome, anxiety disorder, and right lower lobe infiltrate/mass. Spoke to the patient about finding of the CAT scan, options discussed. We will suggest getting PET scan as the outpatient, need close monitoring to assure the stability of the mass. Thank you and we will follow with you. Kuldip Hernandez MD
[2017-03-29] MEDS: Ceftaroline 600 MG in Sodium Chloride 0.9% 100 ML IVPB SCH ×2 (09:27→21:58)
--- NOTE | 2017-03-29 09:55 | PN ---
DATE: 03/26/2017 SUBJECTIVE: The patient is stable. No new complaint. No chest pain. No short of breath. Is worried about the foot amputation, the toes amputations. The patient is clinically stable, currently on IV Teflaro , seen by ID enterprise resource planning consultant Dr. English. PHYSICAL EXAMINATION: VITAL SIGNS: Temperature 97.6, heart rate 59, blood pressure 138/73, respirations 20, saturation 95%. HEENT: Head and neck normal. NECK: No JVD. No thyromegaly. CHEST: Equal air entry. CARDIAC: First sound and second sounds normal. ABDOMEN: Soft and nontender. EXTREMITIES: No edema. The patient moves all extremities. No deficits. Gait stable. His right foot little toe, metatarsal base ulcerations. It seems prominent mass coming out as ulcer. NEUROLOGICAL: Nonfocal. Stable gait. LABORATORY DATA: White count 6.3, hemoglobin 10, hematocrit 32.3, and platelets 178. Chemistry; sodium 141, potassium 5.6, carbon dioxide 36, BUN 15, and creatinine 0.8. Liver function test is normal and hemoglobin A1c 5.6, cholesterol is total 105 and HDL 23, LDL 58, triglycerides is 90. Urinalysis is moderate leukocyte esterase positive, 5 to 10 red blood cells, 10 to 15 white cells, PT 11.8, PTT 32.4. IMPRESSION AND PLAN: 1. Right foot ulcerations with possible osteomyelitis. We will continue IV Teflaro as per Dr. English, and Dr. Lucas will consider MRI of the foot. Dr. Rich also is a podiatry on the case and will continue follow up as recommendations. Continue current treatment. Follow up clinically. 2. Diabetes, seems stable. I will decrease his metformin to once a day 500, but continue monitoring it. 3. Hypertension. 4. History of coronary artery disease, stable. Continue current treatments. 5. The patient also has chronic back pain and chronic anxiety. Continue methadone and Klonopin. 6. For his hypercholesteremia, continue Lipitor. 7. Chronic hepatitis C, anemia. Advised the patient to get a colonoscopy and to get treated for hepatitis C as per recommendation of GI, multiple times noncompliance. . CURRENT MEDICATIONS: Metformin once a day, Klonopin 1 mg b.i.d., Lipitor 40 mg, metformin 25 mg b.i.d., Lovenox 40 subQ daily, methadone 70 daily, Pepcid 40 p.o. daily, multivitamin and Teflaro IV. Continue current therapy. Followup with ID consult and podiatry. Tate Villa MD
--- NOTE | 2017-03-29 12:00 | CP.PCM.PN ---
<GlenamadoErlin georges - Last Filed: 03/29/17 12:00> Subjective - Date & Time of Evaluation Date of Evaluation: 03/29/17 Time of Evaluation: 11:58 - Subjective Subjective: GI: Dr. Edouard Pt seen and examined. Resting comfortably in bed. For OR today w. podiatry. Pt has no complaints and is in good spirits. Objective - Vital Signs/Intake and Output Vital Signs (last 24 hours): Temp Pulse Resp BP Pulse Ox 97.5 F L 42 L 20 144/72 99 03/29/17 07:30 03/29/17 08:03 03/29/17 07:30 03/29/17 08:03 03/29/17 07:30 Intake and Output: 03/29/17 03/29/17 06:59 18:59 Intake Total 420 Balance 420 - Medications Medications: Current Medications Atorvastatin Calcium (Lipitor) 40 mg PO DIN [facility] Last Admin: 03/28/17 17:20 Dose: 40 mg Clonazepam (Klonopin) 1 mg PO Q12H [facility] PRN Reason: Protocol Last Admin: 03/29/17 08:03 Dose: 1 mg Enoxaparin Sodium (Lovenox) 40 mg SC DAILY [facility] PRN Reason: Protocol Last Admin: 03/28/17 09:15 Dose: 40 mg Famotidine (Pepcid) 40 mg PO HS [facility] Last Admin: 03/28/17 21:49 Dose: 40 mg Ceftaroline Fosamil 600 mg/ (Sodium Chloride) 100 mls @ 100 mls/hr IVPB Q12 [facility] PRN Reason: Protocol Stop: 04/01/17 10:01 Last Admin: 03/29/17 09:27 Dose: 100 mls/hr Sodium Chloride (Sodium Chloride 0.9%) 1,000 mls @ 60 mls/hr IV .[id number] [facility] Last Admin: 03/29/17 09:28 Dose: 60 mls/hr Metformin HCl (Glucophage) 500 mg PO DAILY [facility] Last Admin: 03/29/17 11:12 Dose: Not Given Methadone HCl (Methadone) 30 mg PO HS [facility] Methadone HCl (Methadone) 40 mg PO DAILY [facility] Metoprolol Tartrate (Lopressor) 25 mg PO BRKDIN [facility] Last Admin: 03/29/17 08:03 Dose: Not Given Multivitamins/Minerals (Therapeutic-M Tab) 1 tab PO 0800 [facility] Last Admin: 03/29/17 08:11 Dose: 1 tab - Labs Labs: 03/26/17 07:39 03/29/17 07:04 PT 11.8 Seconds (9.9-11.8) 03/24/17 16:21 INR 1.09 (0.93-1.08) H 03/24/17 16:21 APTT 32.4 Seconds (23.7-30.8) H 03/24/17 16:21 - Constitutional Appears: Non-toxic, No Acute Distress - Head Exam Head Exam: ATRAUMATIC, NORMOCEPHALIC - Eye Exam Eye Exam: EOMI. absent: Scleral icterus - ENT Exam ENT Exam: Mucous Membranes Moist - Neck Exam Neck Exam: Full ROM - Respiratory Exam Respiratory Exam: NORMAL BREATHING PATTERN. absent: Accessory Muscle Use, Respiratory Distress - Cardiovascular Exam Cardiovascular Exam: REGULAR RHYTHM - GI/Abdominal Exam GI & Abdominal Exam: Soft. absent: Distended, Firm, Guarding, Rigid, Tenderness , Rebound - Extremities Exam Extremities Exam: Pedal Edema. absent: Calf Tenderness - Neurological Exam Neurological Exam: Alert, Awake, Oriented x3 Assessment and Plan - Assessment and Plan (Free Text) Assessment: 67M w. chronic hep C admitted for osteomyelitis R 5th metatarsal -Pt for OR today w. podiatry -U/S show no focal lesion in liver -AFP ordered f/u results -Hep C viral load ordered, f/u results -c/w current medical management -d/w attending Brit PGY3 <Megan Edouard V - Last Filed: 03/29/17 23:33> Objective - Vital Signs/Intake and Output Vital Signs (last 24 hours): Temp Pulse Resp BP Pulse Ox 97.6 F 54 L 21 134/61 98 03/29/17 19:05 03/29/17 19:05 03/29/17 19:05 03/29/17 19:05 03/29/17 19:05 Intake and Output: 03/29/17 03/30/17 18:59 06:59 Intake Total 0 360 Output Total 101 200 Balance -101 160 - Medications Medications: Current Medications Acetaminophen (Tylenol 325mg Tab) 650 mg PO Q6H PRN PRN Reason: Pain, Mild (1-3) Atorvastatin Calcium (Lipitor) 40 mg PO DIN [facility] Last Admin: 03/29/17 20:14 Dose: 40 mg Clonazepam (Klonopin) 1 mg PO Q12H [facility] PRN Reason: Protocol Last Admin: 03/29/17 20:14 Dose: 1 mg Enoxaparin Sodium (Lovenox) 40 mg SC DAILY [facility] PRN Reason: Protocol Last Admin: 03/28/17 09:15 Dose: 40 mg Famotidine (Pepcid) 40 mg PO HS [facility] Last Admin: 03/29/17 21:58 Dose: 40 mg Ceftaroline Fosamil 600 mg/ (Sodium Chloride) 100 mls @ 100 mls/hr IVPB Q12 [facility] PRN Reason: Protocol Stop: 04/01/17 10:01 Last Admin: 03/29/17 21:58 Dose: 100 mls/hr Sodium Chloride (Sodium Chloride 0.9%) 1,000 mls @ 60 mls/hr IV .[id number] [facility] Last Admin: 03/29/17 09:28 Dose: 60 mls/hr Metformin HCl (Glucophage) 500 mg PO DAILY [facility] Last Admin: 03/29/17 11:12 Dose: Not Given Methadone HCl (Methadone) 30 mg PO 1900 [facility] Methadone HCl (Methadone) 40 mg PO 0800 [facility] Metoprolol Tartrate (Lopressor) 25 mg PO BRKDIN [facility] Last Admin: 03/29/17 08:03 Dose: Not Given Multivitamins/Minerals (Therapeutic-M Tab) 1 tab PO 0800 [facility] Last Admin: 03/29/17 08:11 Dose: 1 tab Ondansetron HCl (Zofran Inj) 4 mg IVP ONCE PRN PRN Reason: Nausea/Vomiting - Labs Labs: 03/26/17 07:39 03/29/17 13:00 PT 11.8 Seconds (9.9-11.8) 03/24/17 16:21 INR 1.09 (0.93-1.08) H 03/24/17 16:21 APTT 32.4 Seconds (23.7-30.8) H 03/24/17 16:21 Attending/Attestation - Attestation I have personally seen and examined this patient.: Yes I have fully participated in the care of the patient.: Yes I have reviewed all pertinent clinical information, including history, physical exam and plan: Yes Notes (Text): This is an addendum to GI progress report dictated by Resident.The patient was seen and examined earlier. Medical records, lab studies, imagings were reviewed. Last 24 hours events reviewed. Agreed with the above treatment plan as outlined in Resident's notes the with the addition of the following Status post surgery Chronic hep C Anemia Noncompliant Recommended follow for hep C treatment as an outpatient and elective colonoscopic evaluation Will follow up AFP,genotype and repeat viral load 03/29/17 23:31
--- NOTE | 2017-03-29 13:53 | PN ---
CARDIOLOGY FOLLOWUP DATE: 03/29/2017 SUBJECTIVE: The patient is in bed, awake, alert. No shortness of breath. No chest pain. PHYSICAL EXAMINATION: VITAL SIGNS: Blood pressure 144/72, heart rate in the 40s, normal sinus rhythm. NECK: Negative JVD. LUNGS: Without rales. HEART: S1, S2. EXTREMITIES: Unchanged from previous. LABORATORY DATA: White count is down to 6.3. The hemoglobin is 10.0. Chemistries; BUN and creatinine are unremarkable. Potassium is 5.3. IMPRESSION: 1. Osteomyelitis of the lower extremity. 2. Stable angina. 3. History of coronary artery bypass surgery. 4. Coronary artery disease. 5. Chronic obstructive pulmonary disease. 6. Diabetes mellitus. Given these findings, the patient is hemodynamically stable. He is awaiting surgery today. Leif Oleary MD
--- NOTE | 2017-03-29 14:37 | RAD ---
HISTORY: pre-op COMPARISON: Comparison made with CTA chest dated 03/26/2017 TECHNIQUE: Chest PA and lateral FINDINGS: LUNGS: Mild emphysema. Area vague opacity right lung base likely represents previously noted masslike opacity which could represent chronic infiltrate or atelectasis in the right lung could be performed to assess stability. Base seen to better advantage on prior CTA chest PLEURA: No significant pleural effusion identified. No pneumothorax apparent. CARDIOVASCULAR: Normal. OSSEOUS STRUCTURES: Posterior fixation hardware traversing a good portion of the length thoracic spine unchanged. VISUALIZED UPPER ABDOMEN: Normal. OTHER FINDINGS: None. IMPRESSION: Re- demonstrated is a tiny right lower lobe opacity which corresponds to what is felt to represent chronic right lower lobe masslike opacity and or atelectasis. Follow-up CT scan in 2 months could be performed to assess stability.
[2017-03-29] MEDS ORDERED: Lidocaine 2% Inj (20ml) ONE (16:08)
[2017-03-29] MEDS ORDERED: Propofol 10 mg/ml Inj (20 ML) ONE (16:53)
--- NOTE | 2017-03-29 19:00 | PCM.SURG1 ---
Surgeon's Initial Post Op Note - Surgeon's Notes Surgeon: Dr. Rich, DPM Caretaker Grounds: Dr. Yamel Silverman, PGY1 Type of Anesthesia: IV Sedation, Local Anesthesia Administered By: Dr. Ordonez Pre-Operative Diagnosis: Right foot 5th met head plantar ulceration + osteomyelitis Operative Findings: See operative report. Materials: 3-0 vicryl, 4-0 nylon, 1/4 " iodoform packing. Injectables: 10cc 2% lidocaine plain pre-op Post-Operative Diagnosis: Right foot 5th met head plantar ulceration + osteomyelitis Operation Performed: Right foot partial 5th ray amputation Specimen/Specimens Removed: 5th metatarsal bone Estimated Blood Loss: EBL {In ML}: 5 Blood Products Given: N/A Drains Used: No Drains Post-Op Condition: Good Date of Surgery/Procedure: 03/29/17 Time of Surgery/Procedure: 17:00
--- NOTE | 2017-03-29 21:30 | PN ---
DATE: 03/29/2017 PULMONARY PROGRESS NOTE REFERRING PHYSICIAN: Dr. Guerra. SUBJECTIVE: He is lying in the bed. Family is at the bedside. Night was unremarkable. No cough and no sputum production. No nausea and vomiting. No diarrhea. No leg swelling. PHYSICAL EXAMINATION GENERAL: In no acute distress. VITAL SIGNS: Temperature 98, heart rate , respiratory rate is 20, blood pressure 160/59, pulse oximetry 99% on room air. HEENT: Moist mucous membranes. No oral thrush noted. NECK: Supple. No JVD. LUNGS: Had a fair airflow with rhonchi. HEART: S1 and S2 regular. ABDOMEN: Soft, nontender. No organomegaly. EXTREMITIES: Does have a dressing on the left foot. NEUROLOGIC: Awake and alert. Follows simple commands. LABORATORY DATA: Shows blood sugar 83, sodium 143, potassium 5.3, chloride 100, bicarbonate 36, BUN 19, creatinine 0.9, calcium is 9.0. Microbiology, blood cultures and urine cultures are unremarkable. Chest x-ray done, shows tiny right lower lobe opacity. MEDICATIONS: He is on ceftaroline 600 mg twice a day, metformin 500 mg daily, clonazepam 1 mg twice a day, Lipitor 40 mg daily, metoprolol tartrate 25 mg twice a day, Lovenox 40 mg subcu daily, mg daily, methadone 40 mg daily, Pepcid 40 mg at bedtime, IV fluid normal saline 60 mL per hour, and multivitamins daily. IMPRESSION AND PLAN: Osteomyelitis of the foot, which is a metatarsal area, hypertension, chronic obstructive lung disease, diabetes, chronic pain syndrome, anxiety disorder, methadone dependence, has a right lower lobe mass/infiltrate, which has been there 2 to 3 months now, not much change I believe. Spoke to Dr. Leif Lyons. With his risk of heavy smoking in the past, I think we should do CT-guided needle biopsy. Spoke to the patient about it, agree with the plan. Thank you, and we will follow with you. Kuldip Hernandez MD
--- NOTE | 2017-03-30 05:03 | CON ---
DATE: 03/29/2017 REASON FOR CONSULTATION: Anemia, hyperkalemia. HISTORY OF PRESENT ILLNESS: A 67-year-old male previously unknown to me, was admitted on 03/24/2017 with complaints of pain and swelling and ulceration of the right foot at the fifth metatarsal site. The patient had reported malodorous discharge. He denied any fever, chills. He denied any nausea, vomiting. He denied any chest pain, shortness of breath. He denied any headaches, dizziness. He was been treated with IV antibiotics. He is scheduled for amputation of the fifth metatarsal. He was found to have elevated potassium of 5.6, hence consultation was requested. PAST MEDICAL AND SURGICAL HISTORY: Long-standing hypertension, CAD, CABG, MRSA bacteriemia, diskitis, osteomyelitis, status post decompression laminectomy in 02/2016, cellulitis, skin infection, right foot osteomyelitis, history of amputation of right second toe. The patient denies any history of diabetes, although history in the chart states he has diabetes. FAMILY HISTORY: Hypertension in multiple members of the family. SOCIAL HISTORY: Ex-smoker, quit about a month ago, heavy alcohol user in the past, no drugs. The patient is a , he has 2 kids. ALLERGIES: NO KNOWN DRUG ALLERGIES. CURRENT MEDICATIONS: Ceftaroline 600 q. 12 hours, metformin 500 daily, Klonopin 1 mg twice a day, Lipitor 40, Lopressor 25 b.i.d., methadone, Pepcid, normal saline at 60, and multivitamins. HOME MEDICATIONS: Not listed. REVIEW OF SYSTEMS: All systems are reviewed, pertinent positives are mentioned in the history of presenting illness, rest unremarkable. PHYSICAL EXAMINATION: GENERAL: Thinly built elderly male, sitting in bed. VITAL SIGNS: Blood pressure 160/59, heart rate 47, respiratory rate 18, and temperature 97.6. HEENT: Normocephalic and atraumatic. No pallor. NECK: Supple. No JVD. LUNGS: Bilateral equal air entry. No rales present. CARDIAC: S1 and S2, regular rate and rhythm. No murmur, no rub. ABDOMEN: Soft, nondistended and nontender, bowel sounds present. EXTREMITIES: Discoloration of the right foot, purplish right foot, dressing of the right foot. LABORATORY DATA: WBC 6.3, hemoglobin 10, hematocrit 32, and platelets 178. Sodium 143, potassium 5.3, chloride 100, CO2 of 36, BUN 19, creatinine 0.9, glucose 83, and calcium 9.0. Urinalysis yellow, slightly cloudy, pH 6.0, specific gravity 1.025, blood small, leukocyte esterase moderate, wbc's 10-15. Urine culture no growth. Blood culture no growth. ASSESSMENT: 1. Long-standing hypertension. 2. Coronary artery disease, history of coronary artery bypass grafting. 3. History of diskitis, osteomyelitis of the fifth metatarsal. 4. Hyperkalemia, etiology unclear at this time. 5. Ultrasound shows asymmetric kidneys, right kidney 11.3 cm and left kidney 9.5 cm. PLAN: 1. No further Kayexalate is needed. The patient received Kayexalate this morning. Potassium is 5.3. 2. Would recommend checking plasma renin, plasma aldosterone, plasma cortisol since the patient denies any history of diabetes, p.r.n. consider renal artery Dopplers to rule out renal artery stenosis especially because patient does have a history of atherosclerotic disease. Thank you for the courtesy of this consultation. We will follow this patient closely with you. Shari Mcgarry MD
--- NOTE | 2017-03-30 09:02 | RAD ---
PROCEDURE: Right Foot Radiographs. HISTORY: s/p right foot partial 5th ray amputation COMPARISON: 03/24/2017. FINDINGS: BONES: There has been interval amputation of the 5th toe and distal half of the 5th metatarsal. There are stable postsurgical changes in the 2nd toe and 2nd metatarsal. There is no acute displaced fracture or bone destruction. There is diffuse bone demineralization. There is a prominent plantar calcaneal spur and dorsal calcaneal enthesophyte. JOINTS: There is mild degenerative osteoarthrosis in the 1st MTP joint. SOFT TISSUES: There is soft tissue swelling in the stump with postoperative edema. OTHER FINDINGS: None. IMPRESSION: Status post amputation of the 5th toe and distal part of the 5th metatarsal with postoperative changes in the amputation stump.
[2017-03-30 09:08] LABS: HEMATOCRIT 30.9 % (42.0-52.0); MEAN CELL VOLUME 84.9 fl (80.0-105.0); MEAN CORPUSCULAR HEMOGLOBIN 26.4 pg (25.0-35.0); MEAN CORPUSCULAR HGB CONC 31.1 g/dl (31.0-37.0); MEAN PLATELET VOLUME 9.7 fl (7.0-11.0); RED CELL DISTRIBUTION WIDTH 16.1 % (11.5-14.5); WHITE BLOOD COUNT 5.7 10^3/ul (4.5-11.0)
[2017-03-30 09:13] LABS: BLOOD UREA NITROGEN 17 mg/dL (7-21); CALCIUM 8.7 mg/dL (8.4-10.5); CARBON DIOXIDE 33 mmol/L (21-33); CHLORIDE 101 mmol/L (95-110); GFR AFRICAN-AMERICAN > 60; GLUCOSE,RANDOM 73 mg/dL (70-110); POTASSIUM 5.1 mmol/L (3.6-5.0); SODIUM 141 mmol/L (132-148)
[2017-03-30] MEDS: Enoxaparin 40 mg Syringe SC SCH (10:16)
[2017-03-30] MEDS: Multivitamin With Minerals Tab PO SCH (10:17)
[2017-03-30] MEDS: Ceftaroline 600 MG in Sodium Chloride 0.9% 100 ML IVPB SCH ×2 (10:21→22:14)
--- NOTE | 2017-03-30 11:36 | PN ---
DATE: 03/30/2017 CARDIOLOGY FOLLOWUP The patient tolerated surgery well. OBJECTIVE: VITAL SIGNS: Blood pressure 131/68, the heart rate is in the 50s. NECK: Negative JVD. LUNGS: Without rales. HEART: Revealed S1 and S2. EXTREMITIES: Bandage in the lower extremities. LABORATORY: Hemoglobin is 9.6, white count is 5.7. Chemistries are unremarkable. Given these findings, the patient is hemodynamically stable, has tolerated it well. Begin physical therapy. Leif Oleary MD
--- NOTE | 2017-03-30 11:59 | CP.PCM.PN ---
Subjective - Date & Time of Evaluation Date of Evaluation: 03/30/17 Time of Evaluation: 11:00 - Subjective Subjective: Had surgery yesterday, no fevers, less pain in the right foot. Objective - Vital Signs/Intake and Output Vital Signs (last 24 hours): Temp Pulse Resp BP Pulse Ox 98.2 F 50 L 20 131/68 96 03/30/17 07:47 03/30/17 08:31 03/30/17 07:47 03/30/17 08:31 03/30/17 07:47 Intake and Output: 03/30/17 03/30/17 06:59 18:59 Intake Total 600 Output Total 200 Balance 400 - Medications Medications: Current Medications Acetaminophen (Tylenol 325mg Tab) 650 mg PO Q6H PRN PRN Reason: Pain, Mild (1-3) Atorvastatin Calcium (Lipitor) 40 mg PO DIN [facility] Last Admin: 03/29/17 20:14 Dose: 40 mg Clonazepam (Klonopin) 1 mg PO Q12H [facility]ZE PRN Reason: Protocol Last Admin: 03/30/17 08:33 Dose: 1 mg Enoxaparin Sodium (Lovenox) 40 mg SC DAILY [facility] PRN Reason: Protocol Last Admin: 03/28/17 09:15 Dose: 40 mg Famotidine (Pepcid) 40 mg PO HS [facility] Last Admin: 03/29/17 21:58 Dose: 40 mg Ceftaroline Fosamil 600 mg/ (Sodium Chloride) 100 mls @ 100 mls/hr IVPB Q12 [facility] PRN Reason: Protocol Stop: 04/01/17 10:01 Last Admin: 03/29/17 21:58 Dose: 100 mls/hr Metformin HCl (Glucophage) 500 mg PO DAILY [facility] Last Admin: 03/29/17 11:12 Dose: Not Given Methadone HCl (Methadone) 30 mg PO 1900 [facility] Methadone HCl (Methadone) 40 mg PO 0800 [facility] Last Admin: 03/30/17 08:31 Dose: 40 mg Metoprolol Tartrate (Lopressor) 25 mg PO BRKDIN [facility] Last Admin: 03/30/17 08:31 Dose: Not Given Multivitamins/Minerals (Therapeutic-M Tab) 1 tab PO 0800 [facility] Last Admin: 03/29/17 08:11 Dose: 1 tab Ondansetron HCl (Zofran Inj) 4 mg IVP ONCE PRN PRN Reason: Nausea/Vomiting - Labs Labs: 03/30/17 08:46 03/29/17 13:00 PT 11.8 Seconds (9.9-11.8) 03/24/17 16:21 INR 1.09 (0.93-1.08) H 03/24/17 16:21 APTT 32.4 Seconds (23.7-30.8) H 03/24/17 16:21 - Constitutional Appears: Non-toxic, No Acute Distress - Head Exam Head Exam: NORMAL INSPECTION - ENT Exam ENT Exam: Mucous Membranes Moist - Neck Exam Neck Exam: absent: Lymphadenopathy, Meningismus - Respiratory Exam Respiratory Exam: Decreased Breath Sounds - Cardiovascular Exam Cardiovascular Exam: +S1, +S2 - GI/Abdominal Exam GI & Abdominal Exam: Soft. absent: Tenderness Assessment and Plan - Assessment and Plan (Free Text) Plan: Assessment right foot infected ulcer at site of 5th metatarsal amputation for previous osteomyelitis, with probable new onset osteomyelitis S/P partial amputation of the 5th ray POD #1 history of skin and skin structure infection at the site of previous laminectomy and hardware placement history of HCAP history MRSA bacteremia with discitis and osteomyelitis S/P decompression laminectomy history of Cholelithiasis S/P cholecystectomy coronary artery disease hypertension diabetes mellitus dementia history of right foot osteomyelitis and amputation of right second toe CAD S/P PCI with cardiac stents placed and coronary bypass graft Plan will continue Teflaro pending OR cx and pathology; blood cx are negative so far will monitor clinically
[2017-03-30] MEDS ORDERED: Sod Polystyrene Sulf 15 gm/60 ml Oral Susp PO ONE (12:46)
--- NOTE | 2017-03-30 14:42 | CP.PCM.PN ---
<Yamel Silverman - Last Filed: 03/30/17 14:39> Subjective - Date & Time of Evaluation Date of Evaluation: 03/30/17 Time of Evaluation: 14:39 - Subjective Subjective: Progress Note - Dr. Fry 67 year old male patient PMHx DM, HTN, hx of osteomyelitis, previous right foot amputation seen at bedside POD#1 right foot partial 5th ray amputation (DOS: ). Patient seen resting comfortably, AAOx3 and NAD. Patient is accompanied by at bedside. Patient reports mild pain to right foot at time of visit. Patient denies any acute events overnight. Patient denies N/V/F/D/C/SOB/calf pain. No other pedal complaints at this time. Objective - Vital Signs/Intake and Output Vital Signs (last 24 hours): Temp Pulse Resp BP Pulse Ox 98.2 F 50 L 20 131/68 96 03/30/17 07:47 03/30/17 08:31 03/30/17 07:47 03/30/17 08:31 03/30/17 07:47 Intake and Output: 03/30/17 03/30/17 06:59 18:59 Intake Total 600 360 Output Total 200 500 Balance 400 -140 - Medications Medications: Current Medications Acetaminophen (Tylenol 325mg Tab) 650 mg PO Q6H PRN PRN Reason: Pain, Mild (1-3) Atorvastatin Calcium (Lipitor) 40 mg PO DIN [facility] Last Admin: 03/29/17 20:14 Dose: 40 mg Clonazepam (Klonopin) 1 mg PO Q12H EZE PRN Reason: Protocol Last Admin: 03/30/17 08:33 Dose: 1 mg Enoxaparin Sodium (Lovenox) 40 mg SC DAILY EZE PRN Reason: Protocol Last Admin: 03/30/17 10:16 Dose: 40 mg Famotidine (Pepcid) 40 mg PO HS EZE Last Admin: 03/29/17 21:58 Dose: 40 mg Ceftaroline Fosamil 600 mg/ (Sodium Chloride) 100 mls @ 100 mls/hr IVPB Q12 EZE PRN Reason: Protocol Stop: 04/01/17 10:01 Last Admin: 03/30/17 10:21 Dose: 100 mls/hr Metformin HCl (Glucophage) 500 mg PO DAILY EZE Last Admin: 03/30/17 10:17 Dose: 500 mg Methadone HCl (Methadone) 30 mg PO 1900 EZE Methadone HCl (Methadone) 40 mg PO 0800 [facility] Last Admin: 03/30/17 08:31 Dose: 40 mg Metoprolol Tartrate (Lopressor) 25 mg PO BRKDIN [facility] Last Admin: 03/30/17 08:31 Dose: Not Given Multivitamins/Minerals (Therapeutic-M Tab) 1 tab PO 0800 [facility] Last Admin: 03/30/17 10:17 Dose: 1 tab Ondansetron HCl (Zofran Inj) 4 mg IVP ONCE PRN PRN Reason: Nausea/Vomiting - Labs Labs: 03/30/17 08:46 03/30/17 08:46 PT 11.8 Seconds (9.9-11.8) 03/24/17 16:21 INR 1.09 (0.93-1.08) H 03/24/17 16:21 APTT 32.4 Seconds (23.7-30.8) H 03/24/17 16:21 - Constitutional Appears: Well, Non-toxic, No Acute Distress - Extremities Exam Additional comments: RLE focused physical exam: Dressing appears clean/dry/intact with no strikethrough noted. VASC: DP and PT pulses palpable. CFT WNL. TG warm to warm. Mild non-pitting edema noted to forefoot. NEURO: Protective sensation diminished. DERM: Ulceration measuring approximately 1.5 x 1.3 cm noted to plantar aspect of 5th met head with 1/4" iodoform packing in place. Surgical incision to dorsal aspect of 5th metatarsal appears well-coapted with sutures intact and no wound dehiscence noted. ORTHO: Tenderness to palpation plantar ulceration - Neurological Exam Neurological Exam: Alert, Awake, Oriented x3 - Psychiatric Exam Psychiatric exam: Normal Affect, Normal Mood Assessment and Plan - Assessment and Plan (Free Text) Assessment: 67 year old male POD#1 right foot partial 5th ray amputation Plan: Patient seen and evaluated at bedside with attending, Dr. Fry Chart, vitals, labs reviewed = afebrile, WBC wnl 5.7 Right foot dressed with Xeroform and DSD. Packing left in place today, plan to remove tomorrow Strict NWB to RLE. Per physical therapy, patient is extremely noncompliant with weightbearing orders Continue abx per ID -Teflaro - pending OR pathology and cx Podiatry will continue to follow while in house <Kishan Fry - Last Filed: 04/02/17 11:36> Objective - Vital Signs/Intake and Output Vital Signs (last 24 hours): Temp Pulse Resp BP Pulse Ox 97.6 F 46 L 18 140/72 97 03/31/17 07:30 03/31/17 17:07 03/31/17 07:30 03/31/17 08:32 03/31/17 07:30 - Labs Labs: 03/31/17 06:39 03/31/17 06:39 PT 11.8 Seconds (9.9-11.8) 03/24/17 16:21 INR 1.09 (0.93-1.08) H 03/24/17 16:21 APTT 32.4 Seconds (23.7-30.8) H 03/24/17 16:21 Attending/Attestation - Attestation I have personally seen and examined this patient.: Yes I have fully participated in the care of the patient.: Yes I have reviewed all pertinent clinical information, including history, physical exam and plan: Yes
--- NOTE | 2017-03-30 15:55 | US ---
PROCEDURE: Bilateral renal artery duplex ultrasound. CLINICAL HISTORY: Renal artery stenosis. Uncontrolled hypertension. Evaluate for renovascular hypertension. PHYSICIAN(S): Leif Lyons M.D. TECHNIQUE: Duplex sonography with color-flow Doppler was used to evaluate the visualized segments of the main renal arteries. The patient was evaluated in a fasting state. Imaging in a supine and decubitus position was performed. Limited evaluation of the arcuate waveforms and resistive indices were performed. FINDINGS: The overall quality of the study is adequate. The kidneys are normal in size, shape, and location. The right kidney measures 11.4cm in length and the left kidney measures 10.3cm in length. No solid renal masses, abnormal calcifications, or hydronephrosis is seen. The main right renal artery is fairly well visualized from the aorta to the hilum. The peak systolic velocity in the right main renal artery is 103 cm/sec. This is consistent with a 0 to 49% stenosis in the main right renal artery. The arcuate waveforms are normal. The resistive index is normal. The main left renal artery is also fairly well seen from its origin to the renal hilum. The peak systolic velocity in the main left renal artery is 113cm/sec. This corresponds to a 0 to 49% stenosis in the main left renal artery. The arcuate waveforms and resistive indices are normal. IMPRESSION: 1. The main renal arteries are fairly well visualized. 2. No sonographically significant stenosis is identified. 3. The kidneys are normal and symmetric in size. There are no solid renal masses, abnormal calcifications or hydronephrosis noted.
--- NOTE | 2017-03-30 16:22 | PN ---
DATE: SUBJECTIVE: The patient is currently seen lying comfortable supine in bed. He appears to be in no acute distress. He is receiving IV antibiotics. He is pondering whether or not he would like to have a PICC line placed. He is status post surgical resection of toes right foot. MEDICATIONS: Medications include that of ceftaroline, metformin, Klonopin, Lipitor, Lopressor, Lovenox, methadone, Pepcid, vitamins, Tylenol p.r.n. and Zofran p.r.n. OBJECTIVE: INTAKE AND OUTPUT: Intake 600 and output 301. VITAL SIGNS: Blood pressure 131/68, pulse of 50, temperature 98.2, respiratory rate 20, pulse ox 96%. HEENT: Shows him to be normocephalic, atraumatic. Conjunctivae are pale. Sclerae are nonicteric. NECK: Supple. No neck vein distention. CHEST: Clear to auscultation and percussion. No rales or rhonchi. No wheezing. CARDIOVASCULAR: Shows regular rate and rhythm without audible murmurs, rubs or gallops. ABDOMEN: Soft. Bowel sounds normal. No rebound or guarding. No masses, no organomegaly noted. EXTREMITIES: Show a bulky dressing over his right foot. No drainage. He is status post amputation of toes right foot. LABORATORY DATA AND IMAGING: CBC; white blood cell count today 5.7 with a hemoglobin of 9.6 down from 10.0. Platelet count is 147,000. Chemistry shows sodium 141, potassium is 5.1, it was 4.8 yesterday after being high at 5.6. Chloride 101, CO2 of 33, BUN 70 with a creatinine of 0.9. Glucose is 73. Calcium is 8.7. Renin, aldosterone levels are pending. IMAGING STUDIES: Renal artery Doppler study id pending. His renal ultrasound showed asymmetrical kidney size, but no increased echogenicity, right kidney was 11.3 cm and left kidney was 9.5 cm. Microbiology; blood cultures were negative at 5 days. Urine culture was negative. ASSESSMENT: 1. Borderline to mild hyperkalemia. The patient states that he had been using an angiotensin-converting enzyme inhibitor at home as part of his blood pressure medication. He does not remember the exact medication, but he thinks it might be ramipril. The patient is currently not receiving this medication. He is status post Kayexalate to help lower his potassium level prior to this surgical procedure. The patient should be maintained on a low potassium diet. Dr. Mcgarry had ordered renin and aldosterone levels. There is no evidence for metabolic acidosis. No evidence for renal disease. Unlikely that he has a type 4 RTA. 2. History of hypertension. Blood pressure is controlled on present medication. The patient is being maintained on beta-babita therapy alone. We should avoid use of angiotensin-converting enzyme inhibitors, angiotensin receptor blockers in light of his tendency toward mild hyperkalemia. 3. Osteomyelitis of the fifth metatarsal. History of diskitis. The patient is status post surgical procedure right foot with removal of a toe. 4. Anemia. I will check the patient's iron, total iron binding capacity, ferritin levels. Check B12 folate levels. In all likelihood anemia secondary to bone marrow suppression secondary to infection and osteomyelitis. 5. Slight asymmetrical size of his kidneys. Renal artery Doppler is pending. I doubt he has renal artery stenosis. 6. History of borderline non-insulin dependent diabetes mellitus. The patient states he was placed on metformin in the past. Sugar control has been excellent. 7. History of coronary artery bypass graft, coronary artery bypass graft currently stable. 8. History of methicillin-resistant Staphylococcus aureus bacteremia, currently not an active issue. PLAN: 1. Continue to monitor labs closely. 2. Continue potassium restricted diet. 3. Avoid SANJANA inhibitors or angiotensin receptor blockers in light of his tendency toward hyperkalemia. 4. I have asked the patient to bring in a list of his home blood pressure medication, so we could help him adjust the medications to avoid any type of medication that would lead to hyperkalemia. 5. Continue IV antibiotic therapy as per infectious disease. 6. Perhaps TCU transfer for completion of antibiotics. Seun Hedrick MD
--- NOTE | 2017-03-31 01:14 | OP ---
PROCEDURE DATE: 03/29/2017 PREOPERATIVE DIAGNOSES: Right foot fifth metatarsal head plantar ulceration and osteomyelitis. POSTOPERATIVE DIAGNOSES: Right foot fifth metatarsal head plantar ulceration and osteomyelitis. PROCEDURE: Right foot partial fifth ray amputation. SURGEON: Dr. Giana Rich DPM STEAM BLOCKER: Dr. Yamel Silverman DPM, PGY-1 TYPE OF ANESTHESIA: IV sedation with local 10 mL of 2% lidocaine plain. ANESTHESIOLOGIST: Dr. Ordonez. INDICATIONS: The patient is a 67-year-old male with the above diagnoses. The patient has exhausted all conservative treatments at this time and now requires surgical intervention. The patient signed a consent after careful explanation of risks, benefits, complications, and alternatives for the procedure and wishes to proceed. No guarantees were given nor implied. PREPARATION: The patient was brought into the operating room and placed on the operating room table in the supine position. Timeout was performed for identification of the correct patient and procedure. After induction of IV sedation, the patient received a total of 10 mL of 2% lidocaine plain in a reverse Pitts block type fashion to the right foot. Once local anesthesia was achieved, the right foot was then prepped and draped in the normal sterile manner and the procedure began. PROCEDURE: Right foot partial fifth ray amputation Attention was directed to the right fifth metatarsal head plantar aspect when ulceration with a hyperkeratotic rim measuring approximately 1.5 x 1.3 cm was noted. It was noted that the fifth metatarsal head was exposed from and protruding from the ulceration site. Using a #15 blade, the hyperkeratotic tissue was excisionally debrided down to healthy skin. Next, attention was then directed to the dorsal aspect of the right fifth metatarsal where a linear to racquet-type incision was made starting from the midshaft of the fifth metatarsal and then circumfirentially at the level of the fifth metatarsophalangeal joint using a #15 blade. The incision was extended down through the subcutaneous layers down to the level of bone. Using a bone clamp to stabilize the fifth digit, the fifth digit was then disarticulated from the foot at the level of the fifth metatarsophalangeal joint. The specimen was then passed from the operative field and sent to pathology. Using a fresh #15 blade, all necrotic and nonviable tissue was then excisionally debrided from the surgical site. Next, all periosteal tissue was carefully resected from the metatarsal using a periosteal elevator. Using the Misonix Large Serrated blade, the distal half of the fifth metatarsal shaft was then resected and passed from the operative field and sent to pathology. All rough edges were then smoothed using a bone rasp. The surgical site was then irrigated with copious amounts of normal sterile saline. The subcutaneous tissue was re-approximated using 3-0 Vicryl and skin layers were then re-approximated using 4-0 nylon using horizontal mattress and simple interrupted suture technique. Xeroform was applied over the incision site and 0.25-inch iodoform packing strip was placed in the plantar ulceration. The right foot was then dressed with sterile gauze, Kerlix and an Alvaro wrap. POSTOPERATIVE CONDITION: The patient tolerated the anesthesia and procedure well and was escorted to the recovery room with vital signs stable and neurovascular status intact to the right foot. The patient is to be on strict nonweightbearing to the right lower extremity and podiatry will continue to follow the patient while in-house. Yamel Silverman DPM Giana Rich DPM JEN
--- NOTE | 2017-03-31 02:01 | PN ---
PULMONARY PROGRESS NOTE DATE: 03/30/2017 REFERRING PHYSICIAN: Dr. Villa. SUBJECTIVE: He is lying in the bed, head at 45 degrees. Night was unremarkable. He has some cough with clear sputum. No nausea and vomiting. No diarrhea. No leg swelling. PHYSICAL EXAMINATION GENERAL: In no acute distress. VITAL SIGNS: Temperature 98, heart rate 50, respiratory rate is 20, blood pressure 131/68 and pulse oximetry 96% on room air. HEENT: Moist mucous membranes. No oral thrush noted. NECK: Supple. No JVD. LUNGS: Has a fair airflow with few rhonchi. HEART: S1 and S2. ABDOMEN: Soft and nontender. No organomegaly. EXTREMITIES: No edema. Has a dressing on the left ankle. NEUROLOGIC: Awake and alert. Follows simple commands. MEDICATIONS: He is on ceftaroline 600 mg q. 12 hours, metformin 500 mg daily, Klonopin 1 mg q. 12 hourly, Lipitor 40 mg daily, metoprolol tartrate 25 mg twice a day, Lovenox 40 mg subcu daily, methadone 70 mg daily, Pepcid 40 mg at bedtime, multivitamin daily, Tylenol p.r.n. basis and Zofran p.r.n. basis. LABORATORY DATA: Shows hemoglobin 9.6, hematocrit 30.9, WBC 5.7 and platelets are 147. Sodium 141, potassium 5.1, chloride 101, bicarbonate 33, BUN 17, creatinine 0.9, glucose 73 and calcium is 8.7. ASSESSMENT AND PLAN: Osteomyelitis of the foot and metatarsal area, hypertension, chronic obstructive lung disease, diabetes, chronic pain syndrome, anxiety disorder, methadone dependence, right lower lobe chronic infiltrate. Case discussed with Dr. Leif Lyons, but patient refused CT-guided needle biopsy understanding risk of possibility of cancer. Continue bronchodilator. Keep head 45 degrees. Antibiotics as per infectious disease. Gastric and deep venous thrombosis prophylaxis. Fall precautions. Thank you, and we will follow with you. Kuldip Hernandez MD
[2017-03-31 06:54] LABS: HEMATOCRIT 29.6 % (42.0-52.0); MEAN CELL VOLUME 83.1 fl (80.0-105.0); MEAN CORPUSCULAR HEMOGLOBIN 26.1 pg (25.0-35.0); MEAN CORPUSCULAR HGB CONC 31.4 g/dl (31.0-37.0); MEAN PLATELET VOLUME 9.5 fl (7.0-11.0); RED CELL DISTRIBUTION WIDTH 15.9 % (11.5-14.5); WHITE BLOOD COUNT 5.4 10^3/ul (4.5-11.0)
[2017-03-31 07:06] LABS: ALB/GLOB RATIO 0.8 (1.1-1.8); ALKALINE PHOSPHATASE 97 U/L (38-126); ALT/SGPT 43 U/L (7-56); AST/SGOT 52 U/L (17-59); BILIRUBIN,TOTAL 0.6 mg/dL (0.2-1.3); BLOOD UREA NITROGEN 16 mg/dL (7-21); CALCIUM 8.5 mg/dL (8.4-10.5); CARBON DIOXIDE 34 mmol/L (21-33); CHLORIDE 100 mmol/L (98-107); GFR AFRICAN-AMERICAN > 60; GLUCOSE,RANDOM 80 mg/dL (70-110); MAGNESIUM 1.9 mg/dL (1.7-2.2); PHOSPHOROUS 4.3 mg/dL (2.5-4.5); POTASSIUM 4.3 mmol/L (3.6-5.0); SODIUM 140 mmol/L (132-148); TOTAL PROTEIN 6.6 g/dL (5.8-8.3)
[2017-03-31 07:21] LABS: IRON 34 ug/dL (45-180)
[2017-03-31 08:27] VITALS: BP 140/72; RESP 18; TEMP 97.6; O2SAT 97
[2017-03-31] MEDS: Multivitamin With Minerals Tab PO SCH (08:33)
[2017-03-31] MEDS: Enoxaparin 40 mg Syringe SC SCH (09:54)
[2017-03-31] MEDS: Ceftaroline 600 MG in Sodium Chloride 0.9% 100 ML IVPB SCH (09:57)
--- NOTE | 2017-03-31 10:52 | CP.PCM.PN ---
Subjective - Date & Time of Evaluation Date of Evaluation: 03/31/17 Time of Evaluation: 10:15 - Subjective Subjective: No new complaints, no fevers, no diarrhea, no nausea. Objective - Vital Signs/Intake and Output Vital Signs (last 24 hours): Temp Pulse Resp BP Pulse Ox 97.6 F 60 18 140/72 97 03/31/17 07:30 03/31/17 08:32 03/31/17 07:30 03/31/17 08:32 03/31/17 07:30 Intake and Output: 03/31/17 03/31/17 06:59 18:59 Intake Total 720 Output Total 400 Balance 320 - Medications Medications: Current Medications Acetaminophen (Tylenol 325mg Tab) 650 mg PO Q6H PRN PRN Reason: Pain, Mild (1-3) Atorvastatin Calcium (Lipitor) 40 mg PO DIN COUNTS [facility] B[facility]S AT [facility] Last Admin: 03/30/17 17:16 Dose: 40 mg Clonazepam (Klonopin) 1 mg PO Q12H EZE PRN Reason: Protocol Last Admin: 03/31/17 08:31 Dose: 1 mg Enoxaparin Sodium (Lovenox) 40 mg SC DAILY [facility] 234 B[facility]S AT [facility] PRN Reason: Protocol Last Admin: 03/30/17 10:16 Dose: 40 mg Famotidine (Pepcid) 40 mg PO HS COUNTS [facility] 234 [facility]S AT [facility] Last Admin: 03/30/17 22:13 Dose: 40 mg Ceftaroline Fosamil 600 mg/ (Sodium Chloride) 100 mls @ 100 mls/hr IVPB Q12 EZE PRN Reason: Protocol Stop: 04/01/17 10:01 Last Admin: 03/30/17 22:14 Dose: 100 mls/hr Metformin HCl (Glucophage) 500 mg PO DAILY [facility] 234 [facility]S [facility] Last Admin: 03/30/17 10:17 Dose: 500 mg Methadone HCl (Methadone) 30 mg PO 1900 [facility] Last Admin: 03/30/17 18:54 Dose: 30 mg Methadone HCl (Methadone) 40 mg PO 0800 [facility] Last Admin: 03/31/17 08:33 Dose: 40 mg Metoprolol Tartrate (Lopressor) 25 mg PO BRKDIN COUNTS [facility] 234 [facility]S [facility] Last Admin: 03/31/17 08:32 Dose: Not Given Multivitamins/Minerals (Therapeutic-M Tab) 1 tab PO 0800 [facility]S [facility] Last Admin: 03/31/17 08:33 Dose: 1 tab Ondansetron HCl (Zofran Inj) 4 mg IVP ONCE PRN PRN Reason: Nausea/Vomiting - Labs Labs: 03/31/17 06:39 03/31/17 06:39 PT 11.8 Seconds (9.9-11.8) 03/24/17 16:21 INR 1.09 (0.93-1.08) H 03/24/17 16:21 APTT 32.4 Seconds (23.7-30.8) H 03/24/17 16:21 - Constitutional Appears: Non-toxic, No Acute Distress - Head Exam Head Exam: NORMAL INSPECTION - ENT Exam ENT Exam: Mucous Membranes Moist - Neck Exam Neck Exam: absent: Meningismus - Respiratory Exam Respiratory Exam: Decreased Breath Sounds - Cardiovascular Exam Cardiovascular Exam: +S1, +S2 - GI/Abdominal Exam GI & Abdominal Exam: Soft. absent: Tenderness - Extremities Exam Additional comments: right foot with dressings and bandages in place Assessment and Plan - Assessment and Plan (Free Text) Plan: Assessment right foot infected ulcer at site of 5th metatarsal amputation for previous osteomyelitis, with probable new onset osteomyelitis S/P partial amputation of the 5th ray POD #2 history of skin and skin structure infection at the site of previous laminectomy and hardware placement history of HCAP history MRSA bacteremia with discitis and osteomyelitis S/P decompression laminectomy history of Cholelithiasis S/P cholecystectomy coronary artery disease hypertension diabetes mellitus dementia history of right foot osteomyelitis and amputation of right second toe CAD S/P PCI with cardiac stents placed and coronary bypass graft Plan will continue Teflaro pending OR cx and pathology; blood cx are negative so far will monitor clinically discussed with Dr. Rich
--- NOTE | 2017-03-31 13:35 | CP.PCM.PN ---
Subjective - Date & Time of Evaluation Date of Evaluation: 03/31/17 Time of Evaluation: 13:32 - Subjective Subjective: Podiatry Progress Note - Dr. Rich 67 year old male patient PMHx DM, HTN, hx of osteomyelitis, previous right foot amputation seen at bedside POD#2 right foot partial 5th ray amputation (DOS: ). Patient seen resting comfortably, AAOx3 and NAD. Patient reports mild pain to right foot at time of visit. Patient denies any acute events overnight. Patient states he has been NWB to RLE; however per physical therapy, patient has not been compliant with strict NWB. Patient denies N/V/F/D/C/SOB/calf pain. No other pedal complaints at this time. Objective - Vital Signs/Intake and Output Vital Signs (last 24 hours): Temp Pulse Resp BP Pulse Ox 97.6 F 60 18 140/72 97 03/31/17 07:30 03/31/17 08:32 03/31/17 07:30 03/31/17 08:32 03/31/17 07:30 Intake and Output: 03/31/17 03/31/17 06:59 18:59 Intake Total 720 300 Output Total 400 500 Balance 320 -200 - Medications Medications: Current Medications Acetaminophen (Tylenol 325mg Tab) 650 mg PO Q6H PRN PRN Reason: Pain, Mild (1-3) Atorvastatin Calcium (Lipitor) 40 mg PO DIN [facility] Last Admin: 03/30/17 17:16 Dose: 40 mg Clonazepam (Klonopin) 1 mg PO Q12H EZE PRN Reason: Protocol Last Admin: 03/31/17 08:31 Dose: 1 mg Enoxaparin Sodium (Lovenox) 40 mg SC DAILY EZE PRN Reason: Protocol Last Admin: 03/31/17 09:54 Dose: 40 mg Famotidine (Pepcid) 40 mg PO HS [facility] Last Admin: 03/30/17 22:13 Dose: 40 mg Ceftaroline Fosamil 600 mg/ (Sodium Chloride) 100 mls @ 100 mls/hr IVPB Q12 EZE PRN Reason: Protocol Stop: 04/01/17 10:01 Last Admin: 03/31/17 09:57 Dose: 100 mls/hr Metformin HCl (Glucophage) 500 mg PO DAILY [facility] Last Admin: 03/31/17 09:54 Dose: 500 mg Methadone HCl (Methadone) 30 mg PO 1900 [facility] Last Admin: 03/30/17 18:54 Dose: 30 mg Methadone HCl (Methadone) 40 mg PO 0800 [facility] Last Admin: 03/31/17 08:33 Dose: 40 mg Metoprolol Tartrate (Lopressor) 25 mg PO BRKDIN [facility] Last Admin: 03/31/17 08:32 Dose: Not Given Multivitamins/Minerals (Therapeutic-M Tab) 1 tab PO 0800 [facility] Last Admin: 03/31/17 08:33 Dose: 1 tab Ondansetron HCl (Zofran Inj) 4 mg IVP ONCE PRN PRN Reason: Nausea/Vomiting - Labs Labs: 03/31/17 06:39 03/31/17 06:39 PT 11.8 Seconds (9.9-11.8) 03/24/17 16:21 INR 1.09 (0.93-1.08) H 03/24/17 16:21 APTT 32.4 Seconds (23.7-30.8) H 03/24/17 16:21 - Constitutional Appears: Well, Non-toxic, No Acute Distress - Extremities Exam Additional comments: RLE focused physical exam: Dressing appears clean/dry/intact with no strikethrough noted. VASC: DP and PT pulses palpable. CFT WNL. TG warm to warm. Mild non-pitting edema noted to forefoot. NEURO: Protective sensation diminished. DERM: Ulceration measuring approximately 1.5 x 1.3 cm noted to plantar aspect of 5th met head with 1/4" iodoform packing in place. Surgical incision to dorsal aspect of 5th metatarsal appears well-coapted with sutures intact and no wound dehiscence noted. ORTHO: Tenderness to palpation plantar ulceration - Neurological Exam Neurological Exam: Alert, Awake, Oriented x3 - Psychiatric Exam Psychiatric exam: Normal Affect, Normal Mood Assessment and Plan - Assessment and Plan (Free Text) Assessment: 67 year old male POD#2 right foot partial 5th ray amputation Plan: Patient seen and evaluated at bedside with attending, Dr. Rich Chart, vitals, labs reviewed = afebrile, WBC wnl 5.4 Packing pulled; right foot dressed with Xeroform and DSD. C/W local wound care Physical therapy consulted - evaluate/gait training for darco forefoot offloading wedge shoe Patient may be weight bearing as tolerated in darco forefoot offloading wedge shoe Per ID, continue Teflaro pending OR cx and pathology Podiatry will continue to follow while in house
[2017-03-31 14:22] LABS: FOLATE 10.4 ng/mL
[2017-03-31 17:10] VITALS: PULSE 46
--- NOTE | 2017-03-31 19:59 | PN ---
DATE: 03/31/2017 REFERRING PHYSICIAN: Dr. Villa. SUBJECTIVE: He is sitting side of the bed. Night was unremarkable. Mild cough, no sputum production. No nausea, no vomiting, no diarrhea. Has dressing on the ankle. PHYSICAL EXAMINATION GENERA: In no acute distress. VITAL SIGNS: Temperature 98, heart rate is 60, respiratory rate is 18, blood pressure 140/72 and pulse oximetry 97% on room air. HEENT: Moist mucous membranes. Small oral cavity. NECK: Supple. No JVD. HEART: S1 and S2. LUNGS: Fair airflow with rhonchi. ABDOMEN: Soft, nontender, no organomegaly. EXTREMITIES: There is no edema. NEUROLOGICAL: Awake and alert. Follow simple commands. LABORATORY DATA: Shows hemoglobin of 9.3, hematocrit 29.6, WBC 5.4, platelet count is 140. Sodium 140, potassium 4.3, chloride 100, bicarbonate is 34, BUN 16, creatinine 0.9, glucose 168, calcium 8.5, phosphorus 4.3, magnesium 1.9, iron is 34, ferritin of 84, AST 52, ALT 43, alkaline phosphatase is 97, albumin is 3.0, vitamin B12 573, folate is 10.4. Wound culture has gram-positive cocci. MEDICATIONS: He is on ceftaroline 600 mg twice a day, metformin 500 mg daily, clonidine 1 mg twice a day, Lipitor 40 mg daily, metoprolol tartrate 25 mg twice a day, Lovenox 40 mg daily, methadone 70 mg daily, Pepcid 40 mg at bedtime, multivitamin daily, Tylenol p.r.n. and Zofran p.r.n. basis. IMPRESSION AND PLAN: Osteomyelitis of the foot and metatarsal area involvement, hypertension, chronic obstructive lung disease, diabetes, chronic pain syndrome, anxiety disorder, methadone dependent, right lower lobe chronic infiltrate. Pulmonary point of view, doing okay. Continue bronchodilator, keep head at 45 degrees, antibiotics as per infectious disease, gastric prophylaxis, deep venous thrombosis prophylaxis, fall precaution. Follow up x-ray to show the stability of right side infiltrate. Presently, the patient refused further workup understanding cannot rule out lung cancer. Thank you and we will follow with you. Kuldip Hernnadez MD
--- NOTE | 2017-04-01 08:27 | PN ---
DATE: 03/31/2017 SUBJECTIVE: The patient is seen sitting in bed. He is awake, he is alert, he is comfortable. He had amputation of the fifth metatarsal. He denies any chest tightness, palpitations. PHYSICAL EXAMINATION GENERAL: Elderly male sitting in bed. VITAL SIGNS: Blood pressure 140/72, heart rate 60, respiratory rate 18, temperature 97.6. HEENT: Normocephalic, atraumatic. NECK: Supple, no JVD. LUNGS: Bilateral equal air entry, no rales, no rhonchi. CARDIAC: S1 and S2, regular rate and rhythm, no murmur, no rub. ABDOMEN: Soft, nondistended, nontender, bowel sounds present. EXTREMITIES: Dressing of the right foot. INTAKE AND OUTPUT: 1080/900. LABORATORY DATA: WBC 5, hemoglobin 9.3, hematocrit 30, platelets 140. Sodium 140, potassium 4.3, chloride 100, CO2 is 34, BUN 16, creatinine 0.9, glucose 80, calcium 8.5, phosphorus 4.3, magnesium 1.9, iron saturation 12, iron 30, ferritin 84, albumin 3.0. Hepatitis C, RNA 1 million copies. CURRENT MEDICATIONS: Ceftaroline 600 q. 12, metformin 500 daily, clonazepam, Lipitor, Lopressor, Lovenox, methadone, Pepcid, multivitamin, Tylenol, Zofran. ASSESSMENT: 1. Osteomyelitis of the first toe on the right foot. 2. Non-insulin dependent diabetes mellitus. 3. Hyperkalemia, resolved. 4. Anemia of chronic disease with low iron stores. 5. Hypertension. PLAN 1. Continue antibiotics as per ID recommendations. 2. IV iron once infection is treated. 3. Euglycemia. Shari Mcgarry MD
--- NOTE | 2017-04-01 11:25 | DS ---
HISTORY OF PRESENT ILLNESS: The patient is stable. No new complaints, comfortable, in no distress. He has no chest pain, no short of breath. PHYSICAL EXAMINATION: As follows; VITAL SIGNS: Temperature is 97.6, heart rate 60, blood pressure 140/72, respiratory rate 18, saturation 97% on room air. HEENT: Head and neck normal. No JVD. No thyromegaly. CHEST: Clear. Good air entry. CARDIAC: First sound and second sound are normal. ABDOMEN: Soft, nontender. EXTREMITIES: No edema. The patient's right foot is wrapped with gauze, status post surgery. NEUROLOGIC: Normal. LABORATORY STUDY: White count 5.4, hemoglobin 9.3, hematocrit 29.6, platelets are 140. Chemistry shows sodium 140, potassium 4.3, chloride 100, bicarb 34, BUN 16, creatinine 0.9, blood sugar runs in the 150 range. Iron study shows iron deficiency anemia. The patient is stable, will be discharged to TCU for IV Teflaro. DISCHARGE DIAGNOSES: 1. Osteomyelitis of the fifth metatarsal, status post surgery and amputation. 2. Osteomyelitis, continue IV Teflaro. 3. Anemia, chronic hepatitis C. The patient will need a colonoscopy and hepatitis C treatment as outpatient. 4. Diabetes type 2, stable. Hemoglobin A1c is very good less than 6. Continue metformin. 5. Coronary artery disease, hypertension, hypercholesterolemia, resume all meds. 6. Chronic back pain, continue methadone. 7. Chronic anxiety, continue Klonopin. We will discharge the patient to TCU and follow up clinically. Tate Villa MD
--- NOTE | 2017-04-01 12:33 | PN ---
DATE: 03/30/2017 SUBJECTIVE: The patient seems doing better, stable. The patient refused PICC line. He is going to go to TCU. He seems better. No complaint. Getting IV antibiotics. No breathing problems. Blood sugar stable and seems doing well. PHYSICAL EXAMINATION: VITAL SIGNS: As follows; temperature 98.2, heart rate 50, blood pressure 131/68, respirations 20, and saturation 96% on room air. HEAD AND NECK: Exam normal. No JVD. No thyromegaly. CHEST: Clear. Good air entry. CARDIAC: First sound and second sound normal. ABDOMEN: Soft and nontender. EXTREMITIES: No edema. Right foot is wrapped around it, status post surgery. NEUROLOGIC: Normal. LABORATORY DATA: Sodium 141, potassium 5.1, chloride 101, bicarb 33, BUN 16, creatinine 0.9, blood sugar 106. The patient also had a white count of 5.7, hemoglobin 9.6, hematocrit 30.9, and platelets 147. IMPRESSION AND PLAN: 1. Right foot osteomyelitis status post amputation of the left metatarsal bones of small toe. We will continue local wound care. Continue IV Teflaro. Follow up with ID consult. 2. The patient does have chronic anemia and chronic hepatitis C. Discussed with the patient need for colonoscopy and hepatitis C therapy. The patient seems noncompliant. We will discuss with the patient. He was seen by GI, Dr. Edouard. 3. Hypertension, diabetes, coronary artery disease, chronic back pain. Continue metformin, continue methadone. We will follow up clinically. The patient stable. We will consider sending the patient to TCU for his IV antibiotics. Tate Villa MD
--- NOTE | 2017-04-01 19:54 | PN ---
DATE: 03/29/2017 SUBJECTIVE: The patient seems to be doing well, status post surgery. No chest pain. No short of breath. He seems stable. PHYSICAL EXAMINATION: On that date is as follows on 03/30/2017: VITAL SIGNS: Temperature 97, heart rate 54, blood pressure 134/61, respiration 20, and saturation 98%. HEENT: Head and neck normal. No JVD. No thyromegaly. CHEST: Clear. Good air entry. CARDIAC: First sound and second sound normal. ABDOMEN: Soft and nontender. EXTREMITIES: The right foot is wrapped with a big gauze, status post surgery. NEUROLOGICAL: Nonfocal. LABORATORY STUDIES: The patient had last lab, his white count is 6.3, hemoglobin 10, hematocrit 32, and platelets 178. Chemistries at date are as follows, sodium 143, potassium 5.3, chloride 36, BUN 19, creatinine 0.9, blood sugar 112, repeat potassium 4.8. IMPRESSION AND PLAN: 1. Right foot, status post surgery, removal of the fifth metatarsal head and continue current local treatment. 2. Osteomyelitis, status post bone removal. Continue IV antibiotic as per ID consult. Discussion whether the patient will need PICC line or just is willing to Transitional Care Unit for shorter course of antibiotic. We will discuss that with the ID consult. 3. Coronary artery disease, hypertension, hypercholesterolemia, chronic back pain, history of back osteomyelitis and back surgery. The patient seems stable. 4. Chronic back pain, continue methadone as prescribed, chronic anxiety. Continue Klonopin. 5. Diabetes, the patient's blood sugar seems very good, continue metformin 500 once a day and continue gastrointestinal and deep venous thrombosis prophylaxis. Current IV antibiotic is Teflaro 600 mg IV daily, q.12 hours. Tate Villa MD
== END 2017-03-31 17:55 | DRG 617 ==
LOC: ED 15:30 → ERH 16:56 → 5RNO 21:26
PROVIDERS: ADMIT Internal Medicine; ATTEND Internal Medicine
PROC: 0Y6M0ZF Detachment at Right Foot, Partial 5th Ray, Open Approach (ICD-10-PCS; principal; 2017-03-30)
PROC: 02HV33Z Insertion of Infusion Device into Superior Vena Cava, Percutaneous Approach (ICD-10-PCS; 2017-03-30)
PROC: B54MZZA Ultrasonography of Right Upper Extremity Veins, Guidance (ICD-10-PCS; 2017-03-30)
DX: E11.69 Type 2 diabetes mellitus with other specified complication (principal); M86.179 Other acute osteomyelitis, unspecified ankle and foot; R64 Cachexia; E11.40 Type 2 diabetes mellitus with diabetic neuropathy, unspecified; E11.65 Type 2 diabetes mellitus with hyperglycemia; E11.621 Type 2 diabetes mellitus with foot ulcer; L97.519 Non-pressure chronic ulcer of other part of right foot with unspecified severity; I10 Essential (primary) hypertension; F03.90 Unspecified dementia, unspecified severity, without behavioral disturbance, psychotic disturbance, mood disturbance, and anxiety; I25.118 Atherosclerotic heart disease of native coronary artery with other forms of angina pectoris; E78.00 Pure hypercholesterolemia, unspecified; M54.9 Dorsalgia, unspecified; F41.9 Anxiety disorder, unspecified; D63.8 Anemia in other chronic diseases classified elsewhere; B18.2 Chronic viral hepatitis C; D50.9 Iron deficiency anemia, unspecified; E87.5 Hyperkalemia; G89.4 Chronic pain syndrome; J44.9 Chronic obstructive pulmonary disease, unspecified; R91.1 Solitary pulmonary nodule; Z79.891 Long term (current) use of opiate analgesic; Z79.84 Long term (current) use of oral hypoglycemic drugs; Z95.5 Presence of coronary angioplasty implant and graft; Z95.1 Presence of aortocoronary bypass graft; Z68.22 Body mass index [BMI] 22.0-22.9, adult; Z87.01 Personal history of pneumonia (recurrent); Z86.14 Personal history of Methicillin resistant Staphylococcus aureus infection; Z91.19 Patient's noncompliance with other medical treatment and regimen

== ENCOUNTER 2017-03-31 17:34 | Inpatient (IN) | payer MEDICARE, OTHER ==
[2017-03-31] MEDS: Ceftaroline 600 MG in Sodium Chloride 0.9% 100 ML IVPB SCH (21:32)
[2017-03-31] MEDS ORDERED: CEFTAROLINE 600 MG IVPB SCH (22:00)
[2017-04-01 06:20] LABS: HEMATOCRIT 29.7 % (42.0-52.0); MEAN CELL VOLUME 84.1 fl (80.0-105.0); MEAN CORPUSCULAR HEMOGLOBIN 26.1 pg (25.0-35.0); MEAN PLATELET VOLUME 9.7 fl (7.0-11.0); RED CELL DISTRIBUTION WIDTH 15.9 % (11.5-14.5); WHITE BLOOD COUNT 5.4 10^3/ul (4.5-11.0)
[2017-04-01 06:50] LABS: ALB/GLOB RATIO 0.8 (1.1-1.8); ALKALINE PHOSPHATASE 96 U/L (38-126); ALT/SGPT 48 U/L (7-56); AST/SGOT 51 U/L (17-59); BILIRUBIN,TOTAL 0.6 mg/dL (0.2-1.3); BLOOD UREA NITROGEN 18 mg/dL (7-21); CALCIUM 8.6 mg/dL (8.4-10.5); CARBON DIOXIDE 33 mmol/L (21-33); CHLORIDE 99 mmol/L (95-110); GFR AFRICAN-AMERICAN > 60; GLUCOSE,RANDOM 76 mg/dL (70-110); SODIUM 140 mmol/L (132-148); TOTAL PROTEIN 6.6 g/dL (5.8-8.3)
[2017-04-01] MEDS: Ceftaroline 600 MG in Sodium Chloride 0.9% 100 ML IVPB SCH ×2 (10:25→21:32)
[2017-04-01] MEDS: Multivitamin With Minerals Tab PO SCH (10:25)
[2017-04-01] MEDS: Enoxaparin 40 mg Syringe SC SCH (10:26)
--- NOTE | 2017-04-01 11:40 | CP.PCM.PN ---
<Yamel Silverman - Last Filed: 04/01/17 11:34> Subjective - Date & Time of Evaluation Date of Evaluation: 04/01/17 Time of Evaluation: 11:34 - Subjective Subjective: Podiatry Progress Note - Dr. Rich 67 year old male patient PMHx DM, HTN, hx of osteomyelitis, previous right foot amputation seen at bedside in [facility] POD#3 right foot partial 5th ray amputation ( DOS: 03/29/17). Patient seen resting comfortably, AAOx3 and NAD. Patient reports mild pain to right foot surgical site, same as yesterday. Patient denies any acute events overnight. Patient states he has been ambulating WBAT in surgical shoe with the assistance of his cane. Patient states he has been working with physical therapy and is able to ambulate comfortably. Patient denies N/V/F/D/C/SOB/calf pain. No other pedal complaints at this time. Objective - Vital Signs/Intake and Output Vital Signs (last 24 hours): Temp Pulse Resp BP Pulse Ox 98.1 F 46 L 18 97/42 L 98 04/01/17 10:11 04/01/17 10:11 04/01/17 10:11 04/01/17 10:11 04/01/17 10:11 - Medications Medications: Current Medications Acetaminophen (Tylenol 325mg Tab) 650 mg PO Q6H PRN; Protocol PRN Reason: Pain, Mild (1-3) Atorvastatin Calcium (Lipitor) 40 mg PO DIN EZE PRN Reason: Protocol Clonazepam (Klonopin) 1 mg PO Q12H [facility]ZE PRN Reason: Protocol Last Admin: 04/01/17 08:10 Dose: 1 mg Enoxaparin Sodium (Lovenox) 40 mg SC DAILY EZE PRN Reason: Protocol Last Admin: 04/01/17 10:26 Dose: 40 mg Famotidine (Pepcid) 40 mg PO HS EZE PRN Reason: Protocol Last Admin: 03/31/17 21:32 Dose: 40 mg Ceftaroline Fosamil 600 mg/ (Sodium Chloride) 100 mls @ 100 mls/hr IVPB Q12 [facility] Last Admin: 04/01/17 10:25 Dose: 100 mls/hr Metformin HCl (Glucophage) 500 mg PO DAILY [facility]ZE PRN Reason: Protocol Last Admin: 04/01/17 10:26 Dose: 500 mg Methadone HCl (Methadone) 30 mg PO 1900 [facility] PRN Reason: Protocol Last Admin: 03/31/17 19:45 Dose: 30 mg Methadone HCl (Methadone) 40 mg PO 0800 [facility] PRN Reason: Protocol Last Admin: 04/01/17 08:17 Dose: 40 mg Metoprolol Tartrate (Lopressor) 25 mg PO BRKDIN [facility] Last Admin: 04/01/17 08:11 Dose: 25 mg Multivitamins/Minerals (Therapeutic-M Tab) 1 tab PO 0800 [facility] PRN Reason: Protocol Last Admin: 04/01/17 10:25 Dose: 1 tab Ondansetron HCl (Zofran Inj) 4 mg IVP ONCE PRN; Protocol PRN Reason: Nausea/Vomiting - Labs Labs: 04/01/17 06:00 04/01/17 06:00 - Constitutional Appears: Well, Non-toxic, No Acute Distress - Extremities Exam Additional comments: RLE focused physical exam: Dressing appears clean/dry/intact with moderate strikethrough noted. VASC: DP and PT pulses palpable. CFT WNL. TG warm to warm. Mild non-pitting edema noted to forefoot. NEURO: Protective sensation diminished. DERM: Ulceration measuring approximately 1.5 x 1.3 cm noted to plantar aspect of 5th met head with 1/2" iodoform packing in place. Surgical incision to dorsal aspect of 5th metatarsal appears well-coapted with sutures intact and no wound dehiscence noted. Maceration noted to plantar forefoot and at distal aspect of incision ORTHO: Tenderness to palpation plantar ulceration - Neurological Exam Neurological Exam: Alert, Awake, Oriented x3 - Psychiatric Exam Psychiatric exam: Normal Affect, Normal Mood Assessment and Plan - Assessment and Plan (Free Text) Assessment: 67 year old male POD#3 right foot partial 5th ray amputation Plan: Patient seen and evaluated at bedside with attending, Dr. Rich Chart, vitals, labs reviewed = afebrile Patient discharged to [facility] for IV Teflaro 1/2" iodoform packing pulled; right foot painted with betadine, maxsorb packed into ulceration site, and dressed with maxsorb and DSD C/w local wound care qd Discussed with physical therapy - evaluate/gait training for darco forefoot offloading wedge shoe - Patient may be WBAT in wedge shoe Per ID, continue Teflaro pending OR cx and pathology OR right foot cx: corynebacterium Podiatry will continue to follow while in house <Giana Rich - Last Filed: 04/06/17 14:34> Objective - Vital Signs/Intake and Output Vital Signs (last 24 hours): Temp Pulse Resp BP Pulse Ox 97.8 F 46 L 18 142/66 98 04/06/17 08:53 04/06/17 08:53 04/06/17 08:53 04/06/17 08:53 04/06/17 08:53 Intake and Output: 04/06/17 04/06/17 06:59 18:59 Intake Total 480 Balance 480 - Medications Medications: Current Medications Acetaminophen (Tylenol 325mg Tab) 650 mg PO Q6H PRN; Protocol PRN Reason: Pain, Mild (1-3) Aspirin (Ecotrin) 81 mg PO 0800 [facility] Last Admin: 04/06/17 08:12 Dose: 81 mg Atorvastatin Calcium (Lipitor) 40 mg PO DIN EZE PRN Reason: Protocol Last Admin: 04/04/17 17:26 Dose: 40 mg Clonazepam (Klonopin) 1 mg PO Q12H [facility] PRN Reason: Protocol Last Admin: 04/06/17 08:17 Dose: 1 mg Enoxaparin Sodium (Lovenox) 40 mg SC DAILY EZE PRN Reason: Protocol Last Admin: 04/06/17 10:21 Dose: 40 mg Famotidine (Pepcid) 40 mg PO HS EZE PRN Reason: Protocol Last Admin: 04/05/17 21:14 Dose: 40 mg Ceftaroline Fosamil 600 mg/ (Sodium Chloride) 100 mls @ 100 mls/hr IVPB Q12 [facility] Last Admin: 04/06/17 10:22 Dose: 100 mls/hr Metformin HCl (Glucophage) 500 mg PO DAILY EZE PRN Reason: Protocol Last Admin: 04/06/17 10:20 Dose: Not Given Methadone HCl (Methadone) 40 mg PO 0800 [facility] Last Admin: 04/06/17 08:18 Dose: 40 mg Methadone HCl (Methadone) 30 mg PO 1900 [facility] Last Admin: 04/05/17 20:16 Dose: 30 mg Metoprolol Tartrate (Lopressor) 12.5 mg PO BRKDIN [facility] Last Admin: 04/06/17 08:13 Dose: 12.5 mg Multivitamins/Minerals (Therapeutic-M Tab) 1 tab PO 0800 [facility] PRN Reason: Protocol Last Admin: 04/06/17 08:14 Dose: 1 tab Ondansetron HCl (Zofran Inj) 4 mg IVP ONCE PRN; Protocol PRN Reason: Nausea/Vomiting - Labs Labs: 04/05/17 17:10 04/05/17 17:10 Attending/Attestation - Attestation I have personally seen and examined this patient.: Yes I have fully participated in the care of the patient.: Yes I have reviewed all pertinent clinical information, including history, physical exam and plan: Yes
--- NOTE | 2017-04-01 12:01 | PN ---
DATE: 04/01/2017 The patient is in the TCU. Feeling well. No chest pain or shortness of breath. On physical exam, vital signs reveal blood pressure 150/62, heart rate in the 60s. Neck: Negative JVD. Lungs: Without rales, heart is with S1, S2. Extremities: Without edema. Hemoglobin is 9.2. Chemistries, BUN and creatinine unremarkable. Glucose is 166. IMPRESSION: 1. Peripheral vascular disease. 2. Status post surgery of the lower extremities. 3. Stable angina. 4. History of coronary bypass surgery. 5. Chronic obstructive pulmonary disease. 6. Diabetes mellitus. Given these findings, the patient's cardiac status is doing well. He is in the TCU to participate in the rehab and continue the antibiotics. Leif Oleary MD
--- NOTE | 2017-04-01 12:56 | CP.PCM.CON ---
History of Present Illness - History of Present Illness History of Present Illness: 67 year old male with PMH of CAD S/P CABG, HTN, diabetes mellitus, history of MRSA bacteremia with discitis and osteomyelitis S/P decompression laminectomy in 2015 and history of skin and skin structure infection at the site of previous laminectomy and hardware placement, history of right foot osteomyelitis and amputation of right second toe and amputation of 5th metatarsal was initially admitted in [facility] because of pain and ulceration on the right previous 5th metatarsal amputation site. He was again found to have osteomyelitis there and further amputation and debridement was done. He is now transferred to [facility] for continue medical therapy and physical rehab. Infectious Diseases consult is requested to further evaluate and manage. Currently he denies fever or chills, no nausea or vomiting, no chest pain, no SOB, no headache or dizziness, no abdominal pain, no diarrhea, no dysuria. Review of Systems - Review of Systems All systems: reviewed and no additional remarkable complaints except (as per HPI ) Past Patient History - Infectious Disease Hx of Infectious Diseases: None - Tetanus Immunizations Tetanus Immunization: Unknown - Past Social History Smoking Status: Former Smoker - CARDIAC Hx Cardiac Disorders: Yes (CABG) Hx Hypercholesterolemia: Yes Hx Hypertension: Yes - PULMONARY Hx Respiratory Disorders: Yes Hx Pneumonia: Yes - NEUROLOGICAL Hx Transient Ischemic Attacks (TIA): No - HEENT Hx HEENT Problems: No - RENAL Hx Chronic Kidney Disease: No - ENDOCRINE/METABOLIC Hx Diabetes Mellitus Type 2: Yes - HEMATOLOGICAL/ONCOLOGICAL Hx Cancer: No - INTEGUMENTARY Hx Dermatological Problems: Yes (RIGHT 2ND TOE AMPUTATED) - MUSCULOSKELETAL/RHEUMATOLOGICAL Hx Falls: No - GASTROINTESTINAL Hx Gastrointestinal Disorders: No - GENITOURINARY/GYNECOLOGICAL Hx Genitourinary Disorders: No Hx Reproductive Disorders: No - PSYCHIATRIC Hx Psychophysiologic Disorder: Yes Hx Depression: Yes (pt reports peroids of sadness) - SURGICAL HISTORY Hx Mastectomy: No - ANESTHESIA Hx Anesthesia Reactions: No Hx Malignant Hyperthermia: No Meds Allergies/Adverse Reactions: Allergies Allergy/AdvReac Type Severity Reaction Status Date / Time No Known Allergies Allergy Verified 04/01/17 01:45 - Medications Medications: Current Medications Acetaminophen (Tylenol 325mg Tab) 650 mg PO Q6H PRN; Protocol PRN Reason: Pain, Mild (1-3) Atorvastatin Calcium (Lipitor) 40 mg PO DIN EZE PRN Reason: Protocol Clonazepam (Klonopin) 1 mg PO Q12H [facility] PRN Reason: Protocol Last Admin: 03/31/17 21:31 Dose: 1 mg Enoxaparin Sodium (Lovenox) 40 mg SC DAILY [facility] PRN Reason: Protocol Famotidine (Pepcid) 40 mg PO HS [facility] PRN Reason: Protocol Last Admin: 03/31/17 21:32 Dose: 40 mg Ceftaroline Fosamil 600 mg/ (Sodium Chloride) 100 mls @ 100 mls/hr IVPB Q12 [facility] Last Admin: 03/31/17 21:32 Dose: 100 mls/hr Metformin HCl (Glucophage) 500 mg PO DAILY [facility] PRN Reason: Protocol Methadone HCl (Methadone) 30 mg PO 1900 [facility] PRN Reason: Protocol Last Admin: 03/31/17 19:45 Dose: 30 mg Methadone HCl (Methadone) 40 mg PO 0800 [facility] PRN Reason: Protocol Metoprolol Tartrate (Lopressor) 25 mg PO BRKDIN [facility] Multivitamins/Minerals (Therapeutic-M Tab) 1 tab PO 0800 [facility] PRN Reason: Protocol Ondansetron HCl (Zofran Inj) 4 mg IVP ONCE PRN; Protocol PRN Reason: Nausea/Vomiting Physical Exam - Constitutional Appears: Non-toxic, No Acute Distress - Head Exam Head Exam: NORMAL INSPECTION - ENT Exam ENT Exam: Mucous Membranes Moist - Neck Exam Neck exam: Negative for: Lymphadenopathy, Meningismus - Respiratory Exam Respiratory Exam: Decreased Breath Sounds - Cardiovascular Exam Cardiovascular Exam: +S1, +S2 - GI/Abdominal Exam GI & Abdominal Exam: Soft. absent: Tenderness - Extremities Exam Additional comments: right foot with dressings and bandages in place Results - Vital Signs Recent Vital Signs: Last Vital Signs Temp 98.3 F 04/01/17 01:45 Pulse 54 L 04/01/17 01:45 Resp 18 04/01/17 01:45 BP 128/71 04/01/17 01:45 Pulse Ox - Labs Result Diagrams: 04/01/17 06:00 04/01/17 06:00 Labs: Laboratory Results - last 24 hr 04/01/17 06:00 WBC 5.4 RBC 3.53 Hgb 9.2 L Hct 29.7 L MCV 84.1 MCH 26.1 MCHC 31.0 RDW 15.9 H Plt Count 135 MPV 9.7 Assessment & Plan - Assessment and Plan (Free Text) Plan: Assessment right foot infected ulcer at site of 5th metatarsal amputation for previous osteomyelitis, with probable new onset osteomyelitis S/P partial amputation of the 5th ray POD #3 history of skin and skin structure infection at the site of previous laminectomy and hardware placement history of HCAP history MRSA bacteremia with discitis and osteomyelitis S/P decompression laminectomy history of Cholelithiasis S/P cholecystectomy coronary artery disease hypertension diabetes mellitus dementia history of right foot osteomyelitis and amputation of right second toe CAD S/P PCI with cardiac stents placed and coronary bypass graft Plan will continue Teflaro pending OR cx and pathology; blood cx are negative so far will continue to monitor clinically discussed with Dr. Rich
[2017-04-02] MEDS: Multivitamin With Minerals Tab PO SCH (08:23)
[2017-04-02] MEDS: Enoxaparin 40 mg Syringe SC SCH (10:23)
[2017-04-02] MEDS: Ceftaroline 600 MG in Sodium Chloride 0.9% 100 ML IVPB SCH ×2 (10:24→21:18)
--- NOTE | 2017-04-02 11:03 | CP.PCM.PN ---
Subjective - Date & Time of Evaluation Date of Evaluation: 04/02/17 Time of Evaluation: 10:25 - Subjective Subjective: Patient is resting comfortably in bed, not in distress, afebrile, less pain in the right foot. Objective - Vital Signs/Intake and Output Vital Signs (last 24 hours): Temp Pulse Resp BP Pulse Ox 98.2 F 54 L 20 95/52 L 97 04/01/17 16:28 04/01/17 17:58 04/01/17 16:28 04/01/17 17:58 04/01/17 16:28 Intake and Output: 04/01/17 04/02/17 18:59 06:59 Intake Total 620 Balance 620 - Medications Medications: Current Medications Acetaminophen (Tylenol 325mg Tab) 650 mg PO Q6H PRN; Protocol PRN Reason: Pain, Mild (1-3) Atorvastatin Calcium (Lipitor) 40 mg PO DIN EZE PRN Reason: Protocol Last Admin: 04/01/17 17:57 Dose: 40 mg Clonazepam (Klonopin) 1 mg PO Q12H EZE PRN Reason: Protocol Last Admin: 04/01/17 21:32 Dose: 1 mg Enoxaparin Sodium (Lovenox) 40 mg SC DAILY EZE PRN Reason: Protocol Last Admin: 04/01/17 10:26 Dose: 40 mg Famotidine (Pepcid) 40 mg PO HS EZE PRN Reason: Protocol Last Admin: 04/01/17 21:33 Dose: 40 mg Ceftaroline Fosamil 600 mg/ (Sodium Chloride) 100 mls @ 100 mls/hr IVPB Q12 EZE Last Admin: 04/01/17 21:32 Dose: 100 mls/hr Metformin HCl (Glucophage) 500 mg PO DAILY EZE PRN Reason: Protocol Last Admin: 04/01/17 10:26 Dose: 500 mg Methadone HCl (Methadone) 30 mg PO 1900 EZE PRN Reason: Protocol Last Admin: 04/01/17 18:07 Dose: 30 mg Methadone HCl (Methadone) 40 mg PO 0800 EZE PRN Reason: Protocol Last Admin: 04/01/17 08:17 Dose: 40 mg Metoprolol Tartrate (Lopressor) 25 mg PO BRKDIN [facility] Last Admin: 04/01/17 17:58 Dose: Not Given Multivitamins/Minerals (Therapeutic-M Tab) 1 tab PO 0800 EZE PRN Reason: Protocol Last Admin: 04/01/17 10:25 Dose: 1 tab Ondansetron HCl (Zofran Inj) 4 mg IVP ONCE PRN; Protocol PRN Reason: Nausea/Vomiting - Labs Labs: 04/01/17 06:00 04/01/17 06:00 - Constitutional Appears: Non-toxic, No Acute Distress - Head Exam Head Exam: NORMAL INSPECTION - ENT Exam ENT Exam: Mucous Membranes Moist - Neck Exam Neck Exam: absent: Meningismus - Respiratory Exam Respiratory Exam: Decreased Breath Sounds - Cardiovascular Exam Cardiovascular Exam: +S1, +S2 - GI/Abdominal Exam GI & Abdominal Exam: Soft. absent: Tenderness - Extremities Exam Additional comments: right foot with dressings in place Assessment and Plan - Assessment and Plan (Free Text) Plan: Assessment right foot infected ulcer at site of 5th metatarsal amputation for previous osteomyelitis, with probable new onset osteomyelitis S/P partial amputation of the 5th ray POD #4 history of skin and skin structure infection at the site of previous laminectomy and hardware placement history of HCAP history MRSA bacteremia with discitis and osteomyelitis S/P decompression laminectomy history of Cholelithiasis S/P cholecystectomy coronary artery disease hypertension diabetes mellitus dementia history of right foot osteomyelitis and amputation of right second toe CAD S/P PCI with cardiac stents placed and coronary bypass graft Plan will continue Teflaro pending OR pathology - OR cx showed Corynebacterium which may be a contaminant; blood cx are negative will continue to monitor clinically discussed with Dr. Rich
--- NOTE | 2017-04-02 15:38 | PN ---
CARDIOLOGY FOLLOWUP DATE: 04/02/2017 SUBJECTIVE: The patient has no new symptoms. PHYSICAL EXAMINATION VITAL SIGNS: Blood pressure is 120/53, heart rate in the 90s. NECK: Negative JVD. LUNGS: Without rales. HEART: S1, S2. EXTREMITIES: Bandage from the surgery. IMPRESSION: 1. Stable angina. 2. History of coronary artery disease. 3. History of bypass. 4. Peripheral vascular disease. 5. Chronic obstructive pulmonary disease. Given these findings, the patient remains hemodynamically stable. He will continue physical therapy. Leif Oleary MD
--- NOTE | 2017-04-02 20:41 | CP.PCM.PN ---
<Yamel Silverman - Last Filed: 04/02/17 20:37> Subjective - Date & Time of Evaluation Date of Evaluation: 04/02/17 Time of Evaluation: 15:15 - Subjective Subjective: Podiatry Progress Note - Dr. Fry 67 year old male patient PMHx DM, HTN, hx of osteomyelitis, previous right foot amputation seen at bedside in [facility] POD#4 right foot partial 5th ray amputation ( DOS: 03/29/17). Patient seen resting comfortably, out of bed and in chair, AAOx3 and NAD. Patient is accompanied by at bedside. Patient reports mild pain to right foot surgical site. Patient seen wearing surgical shoe, not wearing forefoot wedge shoe, to right foot. Patient denies any acute events overnight. Patient denies N/V/F/D/C/SOB/calf pain. Offers no other pedal complaints at this time. Objective - Vital Signs/Intake and Output Vital Signs (last 24 hours): Temp Pulse Resp BP Pulse Ox 97.8 F 45 L 18 104/55 L 98 04/02/17 16:45 04/02/17 16:45 04/02/17 16:45 04/02/17 16:45 04/02/17 16:45 - Medications Medications: Current Medications Acetaminophen (Tylenol 325mg Tab) 650 mg PO Q6H PRN; Protocol PRN Reason: Pain, Mild (1-3) Atorvastatin Calcium (Lipitor) 40 mg PO DIN EZE PRN Reason: Protocol Last Admin: 04/02/17 17:43 Dose: 40 mg Clonazepam (Klonopin) 1 mg PO Q12H EZE PRN Reason: Protocol Last Admin: 04/02/17 08:19 Dose: 1 mg Enoxaparin Sodium (Lovenox) 40 mg SC DAILY EZE PRN Reason: Protocol Last Admin: 04/02/17 10:23 Dose: 40 mg Famotidine (Pepcid) 40 mg PO HS EZE PRN Reason: Protocol Last Admin: 04/01/17 21:33 Dose: 40 mg Ceftaroline Fosamil 600 mg/ (Sodium Chloride) 100 mls @ 100 mls/hr IVPB Q12 EZE Last Admin: 04/02/17 10:24 Dose: 100 mls/hr Metformin HCl (Glucophage) 500 mg PO DAILY EZE PRN Reason: Protocol Last Admin: 04/02/17 10:23 Dose: 500 mg Methadone HCl (Methadone) 30 mg PO 1900 [facility] PRN Reason: Protocol Last Admin: 04/02/17 18:56 Dose: 30 mg Methadone HCl (Methadone) 40 mg PO 0800 [facility] PRN Reason: Protocol Last Admin: 04/02/17 08:20 Dose: 40 mg Metoprolol Tartrate (Lopressor) 25 mg PO BRKDIN [facility] Last Admin: 04/02/17 17:43 Dose: 25 mg Multivitamins/Minerals (Therapeutic-M Tab) 1 tab PO 0800 [facility] PRN Reason: Protocol Last Admin: 04/02/17 08:23 Dose: 1 tab Ondansetron HCl (Zofran Inj) 4 mg IVP ONCE PRN; Protocol PRN Reason: Nausea/Vomiting - Labs Labs: 04/01/17 06:00 04/01/17 06:00 - Constitutional Appears: Well, Non-toxic, No Acute Distress - Extremities Exam Additional comments: RLE focused physical exam: Dressing appears clean/dry/intact with no strikethrough noted. VASC: DP and PT pulses palpable. CFT WNL. TG warm to warm. Mild non-pitting edema noted to forefoot. NEURO: Protective sensation diminished. DERM: Ulceration measuring approximately 1.5 x 1.3 cm noted to plantar aspect of 5th met head with a granular base and hyperkeratotic rim. Surgical incision to dorsal aspect of 5th metatarsal appears well-coapted with sutures intact and no wound dehiscence noted. Maceration noted to plantar forefoot and at distal aspect of incision, decreased from yesterday. ORTHO: Tenderness to palpation plantar ulceration - Neurological Exam Neurological Exam: Alert, Awake, Oriented x3 - Psychiatric Exam Psychiatric exam: Normal Affect, Normal Mood Assessment and Plan - Assessment and Plan (Free Text) Assessment: 67 year old male POD#4 right foot partial 5th ray amputation Plan: Patient seen and evaluated Discussed with attending, Dr. Fry Chart, vitals, labs reviewed = afebrile Right foot painted with betadine, maxsorb packed into ulceration site, and dressed with DSD C/w local wound care qd Informed patient wearing darco forefoot offloading wedge shoe is part of treatment process, in order for plantar ulceration to be able to heal. C/w ambulation in wedge shoe with the assistance of walker, WBAT Per ID, continue Teflaro OR right foot cx: corynebacterium Awaiting pathology report Podiatry will continue to follow while in house <Kishan Fry - Last Filed: 04/03/17 07:31> Objective - Vital Signs/Intake and Output Vital Signs (last 24 hours): Temp Pulse Resp BP Pulse Ox 97.8 F 45 L 18 104/55 L 98 04/02/17 16:45 04/02/17 16:45 04/02/17 16:45 04/02/17 16:45 04/02/17 16:45 - Medications Medications: Current Medications Acetaminophen (Tylenol 325mg Tab) 650 mg PO Q6H PRN; Protocol PRN Reason: Pain, Mild (1-3) Atorvastatin Calcium (Lipitor) 40 mg PO DIN EZE PRN Reason: Protocol Last Admin: 04/02/17 17:43 Dose: 40 mg Clonazepam (Klonopin) 1 mg PO Q12H EZE PRN Reason: Protocol Last Admin: 04/02/17 21:17 Dose: 1 mg Enoxaparin Sodium (Lovenox) 40 mg SC DAILY EZE PRN Reason: Protocol Last Admin: 04/02/17 10:23 Dose: 40 mg Famotidine (Pepcid) 40 mg PO HS EZE PRN Reason: Protocol Last Admin: 04/02/17 21:18 Dose: 40 mg Ceftaroline Fosamil 600 mg/ (Sodium Chloride) 100 mls @ 100 mls/hr IVPB Q12 EZE Last Admin: 04/02/17 21:18 Dose: 100 mls/hr Metformin HCl (Glucophage) 500 mg PO DAILY EZE PRN Reason: Protocol Last Admin: 04/02/17 10:23 Dose: 500 mg Methadone HCl (Methadone) 30 mg PO 1900 EZE PRN Reason: Protocol Last Admin: 04/02/17 18:56 Dose: 30 mg Methadone HCl (Methadone) 40 mg PO 0800 EZE PRN Reason: Protocol Last Admin: 04/02/17 08:20 Dose: 40 mg Metoprolol Tartrate (Lopressor) 25 mg PO BRKDIN EZE Last Admin: 04/02/17 17:43 Dose: 25 mg Multivitamins/Minerals (Therapeutic-M Tab) 1 tab PO 0800 EZE PRN Reason: Protocol Last Admin: 04/02/17 08:23 Dose: 1 tab Ondansetron HCl (Zofran Inj) 4 mg IVP ONCE PRN; Protocol PRN Reason: Nausea/Vomiting - Labs Labs: 04/01/17 06:00 04/01/17 06:00 Attending/Attestation - Attestation I have personally seen and examined this patient.: Yes I have fully participated in the care of the patient.: Yes I have reviewed all pertinent clinical information, including history, physical exam and plan: Yes
--- NOTE | 2017-04-03 09:10 | CP.PCM.PN ---
<Barak Allen - Last Filed: 04/03/17 09:07> Subjective - Date & Time of Evaluation Date of Evaluation: 04/03/17 Time of Evaluation: 09:07 - Subjective Subjective: Podiatry Progress Note - Dr. Fry 67 year old male patient PMHx DM, HTN, hx of osteomyelitis, previous right foot amputation seen at bedside POD#5 right foot partial 5th ray amputation (DOS: ). Patient is AAOx3 and NAD. Patient was out of bed at the time of visitation. Patient reports minimal pain to right foot surgical site. Patient states that last night he noticed bleeding to his dressing. Patient is seen with dressing intact, with mild sangious strikethrough and surgical shoe. Patient denies any acute events overnight. Patient denies N/V/F/D/C/SOB/calf pain. Offers no other pedal complaints at this time. Objective - Vital Signs/Intake and Output Vital Signs (last 24 hours): Temp Pulse Resp BP Pulse Ox 97.8 F 45 L 18 104/55 L 98 04/02/17 16:45 04/02/17 16:45 04/02/17 16:45 04/02/17 16:45 04/02/17 16:45 - Medications Medications: Current Medications Acetaminophen (Tylenol 325mg Tab) 650 mg PO Q6H PRN; Protocol PRN Reason: Pain, Mild (1-3) Atorvastatin Calcium (Lipitor) 40 mg PO DIN EZE PRN Reason: Protocol Last Admin: 04/02/17 17:43 Dose: 40 mg Clonazepam (Klonopin) 1 mg PO Q12H EZE PRN Reason: Protocol Last Admin: 04/02/17 21:17 Dose: 1 mg Enoxaparin Sodium (Lovenox) 40 mg SC DAILY EZE PRN Reason: Protocol Last Admin: 04/02/17 10:23 Dose: 40 mg Famotidine (Pepcid) 40 mg PO HS EZE PRN Reason: Protocol Last Admin: 04/02/17 21:18 Dose: 40 mg Ceftaroline Fosamil 600 mg/ (Sodium Chloride) 100 mls @ 100 mls/hr IVPB Q12 EZE Last Admin: 04/02/17 21:18 Dose: 100 mls/hr Metformin HCl (Glucophage) 500 mg PO DAILY EZE PRN Reason: Protocol Last Admin: 04/02/17 10:23 Dose: 500 mg Methadone HCl (Methadone) 30 mg PO 1900 [facility] PRN Reason: Protocol Last Admin: 04/02/17 18:56 Dose: 30 mg Methadone HCl (Methadone) 40 mg PO 0800 [facility] PRN Reason: Protocol Last Admin: 04/02/17 08:20 Dose: 40 mg Metoprolol Tartrate (Lopressor) 25 mg PO BRKDIN [facility] Last Admin: 04/02/17 17:43 Dose: 25 mg Multivitamins/Minerals (Therapeutic-M Tab) 1 tab PO 0800 [facility] PRN Reason: Protocol Last Admin: 04/02/17 08:23 Dose: 1 tab Ondansetron HCl (Zofran Inj) 4 mg IVP ONCE PRN; Protocol PRN Reason: Nausea/Vomiting - Labs Labs: 04/01/17 06:00 04/01/17 06:00 - Constitutional Appears: Well, Non-toxic, No Acute Distress - Extremities Exam Additional comments: RLE focused physical exam: Dressing appears clean/dry/intact with very mild sangious strikethrough noted. VASC: DP and PT pulses palpable. CFT WNL. TG warm to warm. Mild non-pitting edema noted to forefoot. NEURO: Protective sensation diminished. DERM: Ulceration measuring approximately 1.5 x 1.3 cm noted to plantar aspect of 5th met head with a granular base and hyperkeratotic rim. Surgical incision to dorsal aspect of 5th metatarsal appears well-coapted with sutures intact and no wound dehiscence noted. No maceration noted to plantar forefoot and at distal aspect of incision. ORTHO: Tenderness to palpation plantar ulceration - Neurological Exam Neurological Exam: Alert, Awake, Oriented x3 - Psychiatric Exam Psychiatric exam: Normal Affect, Normal Mood Assessment and Plan - Assessment and Plan (Free Text) Assessment: 67 year old male POD#5 right foot partial 5th ray amputation Plan: Patient seen and evaluated Discussed plan with attending, Dr. Fry Chart, vitals, labs reviewed = afebrile Right foot painted with betadine, maxsorb packed into ulceration site, and dressed with DSD Will discontinue betadine with tomorrow dressing change C/w local wound care qd Informed patient wearing darco forefoot offloading wedge shoe is part of treatment process, in order for plantar ulceration to be able to heal. C/w ambulation in wedge shoe with the assistance of walker, WBAT Per ID, continue Teflaro OR right foot cx: corynebacterium Awaiting pathology report Podiatry will continue to follow while in house <Kishan Fry - Last Filed: 04/05/17 08:15> Objective - Vital Signs/Intake and Output Vital Signs (last 24 hours): Temp Pulse Resp BP Pulse Ox 97.5 F L 81 18 107/74 99 04/04/17 16:40 04/04/17 17:27 04/04/17 16:40 04/04/17 17:27 04/04/17 16:40 Intake and Output: 04/05/17 04/05/17 06:59 18:59 Intake Total 660 Balance 660 - Medications Medications: Current Medications Acetaminophen (Tylenol 325mg Tab) 650 mg PO Q6H PRN; Protocol PRN Reason: Pain, Mild (1-3) Atorvastatin Calcium (Lipitor) 40 mg PO DIN EZE PRN Reason: Protocol Last Admin: 04/04/17 17:26 Dose: 40 mg Clonazepam (Klonopin) 1 mg PO Q12H EZE PRN Reason: Protocol Last Admin: 04/04/17 20:30 Dose: 1 mg Enoxaparin Sodium (Lovenox) 40 mg SC DAILY EZE PRN Reason: Protocol Last Admin: 04/04/17 09:31 Dose: 40 mg Famotidine (Pepcid) 40 mg PO HS EZE PRN Reason: Protocol Last Admin: 04/04/17 22:05 Dose: 40 mg Ceftaroline Fosamil 600 mg/ (Sodium Chloride) 100 mls @ 100 mls/hr IVPB Q12 EZE Last Admin: 04/04/17 22:04 Dose: 100 mls/hr Metformin HCl (Glucophage) 500 mg PO DAILY EZE PRN Reason: Protocol Last Admin: 04/04/17 09:31 Dose: 500 mg Metoprolol Tartrate (Lopressor) 12.5 mg PO BRKDIN [facility] Last Admin: 04/04/17 17:27 Dose: 12.5 mg Multivitamins/Minerals (Therapeutic-M Tab) 1 tab PO 0800 EZE PRN Reason: Protocol Last Admin: 04/04/17 08:28 Dose: 1 tab Ondansetron HCl (Zofran Inj) 4 mg IVP ONCE PRN; Protocol PRN Reason: Nausea/Vomiting - Labs Labs: 04/01/17 06:00 04/01/17 06:00 Attending/Attestation - Attestation I have personally seen and examined this patient.: Yes I have fully participated in the care of the patient.: Yes I have reviewed all pertinent clinical information, including history, physical exam and plan: Yes
[2017-04-03] MEDS: Ceftaroline 600 MG in Sodium Chloride 0.9% 100 ML IVPB SCH ×2 (09:34→22:07)
[2017-04-03] MEDS: Multivitamin With Minerals Tab PO SCH (09:35)
[2017-04-03] MEDS: Enoxaparin 40 mg Syringe SC SCH (09:36)
--- NOTE | 2017-04-03 14:54 | PN ---
DATE: 04/03/2017 SUBJECTIVE: The patient is in bed, in no acute distress, and nontoxic. No fevers or chills. PHYSICAL EXAMINATION: VITAL SIGNS: Temperature is 98, blood pressure is 120/70, and respiratory rate of 16. HEENT: Unremarkable. NECK: Supple. LUNGS: Decreased breath sounds. HEART: Normal S1 and S2. ABDOMEN: Soft and nontender. LABORATORY DATA: Reveals a white count of 5.4, hemoglobin of 9, and platelets of 135. Chemistry reveals a BUN of 18 and creatinine of 0.89. Microbiology is noted. ASSESSMENT AND PLAN: This is a -[id number] male with right foot infected ulcer at the site of fifth metatarsal amputation from previous osteomyelitis with a new onset of osteomyelitis, status post partial amputation of fifth ray post procedure day #5 with history of skin and skin soft tissue infection and at the previous laminectomy site and hardware placement with history of healthcare-associated pneumonia and history of methicillin-resistant Staphylococcus aureus bacteremia and diskitis and osteomyelitis with status post decompression laminectomy and history of cholelithiasis and cholecystectomy, coronary artery disease, hypertension, diabetes, dementia, history of right foot osteomyelitis, and amputation of right second toe, on Teflaro. Pending pathology and cultures. OR cultures showed corynebacterium, this may be a contamination. Review of orders reveals the patient to have follow closely with you. Roel English MD
[2017-04-04] MEDS: Multivitamin With Minerals Tab PO SCH (08:28)
--- NOTE | 2017-04-04 09:17 | PN ---
DATE: 04/04/2017 SUBJECTIVE: The patient is in bed, in no acute distress, nontoxic. PHYSICAL EXAMINATION VITAL SIGNS: Temperature is 97, blood pressure is 110/50, respiratory rate of 18. HEENT: Unremarkable. NECK: Supple. LUNGS: Decreased breath sounds. HEART: Normal S1 and S2. ABDOMEN: Soft and nontender. No rebound or guarding. LABORATORY DATA: Reveals a white count is 5.4, hemoglobin of 9, platelets of 135. BUN of 18, creatinine of 0.8. Microbiology is noted. Review of orders reveals the patient to be on Teflaro. ASSESSMENT AND PLAN: This is a 85-year-old male with a right foot infected ulcer beside at the fifth metatarsal amputation from a previous osteomyelitis with a new onset of osteomyelitis status post partial amputation of the fifth ray, postprocedure day #6 with a history of skin and soft tissue infection in a previous laminectomy site and hardware placement and a history of healthcare associated pneumonia, with Methicillin-resistant Staphylococcus aureus bacteremia and discitis osteomyelitis status post decompressive laminectomy, history of cholelithiasis and cholecystectomy, coronary artery disease, hypertension, diabetes, dementia, history of right foot osteomyelitis and amputation of the right second toe, currently on Teflaro, awaiting for pathology, although, the OR cultures are positive for Corynebacterium and the right foot culture and superficial cultures were positive for Corynebacterium. The patient also had Corynebacterium in February of 2017. At times, this may behave as a pathogen and not a contamination. We will continue Teflaro for now. Pending pathology report. Roel English MD
[2017-04-04] MEDS: Ceftaroline 600 MG in Sodium Chloride 0.9% 100 ML IVPB SCH ×2 (09:31→22:04)
[2017-04-04] MEDS: Enoxaparin 40 mg Syringe SC SCH (09:31)
--- NOTE | 2017-04-04 12:00 | CP.PCM.PN ---
<Barak Allen - Last Filed: 04/04/17 11:56> Subjective - Date & Time of Evaluation Date of Evaluation: 04/04/17 Time of Evaluation: 10:00 - Subjective Subjective: Podiatry Progress Note - Dr. Fry 67 year old male patient PMHx DM, HTN, hx of osteomyelitis, previous right foot amputation seen at bedside POD#6 right foot partial 5th ray amputation (DOS: ). Patient is seen sitting comfortably in bed, in NAD and AAOx3. Patient reports no pain to right foot surgical site. Patient denies any acute events overnight. Patient denies N/V/F/D/C/SOB/calf pain. Offers no other pedal complaints at this time. Objective - Vital Signs/Intake and Output Vital Signs (last 24 hours): Temp Pulse Resp BP Pulse Ox 97.4 F L 41 L 18 126/67 97 04/04/17 10:35 04/04/17 10:35 04/04/17 10:35 04/04/17 10:35 04/04/17 10:35 Intake and Output: 04/04/17 04/04/17 06:59 18:59 Intake Total 620 Balance 620 - Medications Medications: Current Medications Acetaminophen (Tylenol 325mg Tab) 650 mg PO Q6H PRN; Protocol PRN Reason: Pain, Mild (1-3) Atorvastatin Calcium (Lipitor) 40 mg PO DIN EZE PRN Reason: Protocol Last Admin: 04/03/17 17:22 Dose: 40 mg Clonazepam (Klonopin) 1 mg PO Q12H EZE PRN Reason: Protocol Last Admin: 04/04/17 08:27 Dose: 1 mg Enoxaparin Sodium (Lovenox) 40 mg SC DAILY EZE PRN Reason: Protocol Last Admin: 04/04/17 09:31 Dose: 40 mg Famotidine (Pepcid) 40 mg PO HS EZE PRN Reason: Protocol Last Admin: 04/03/17 22:07 Dose: 40 mg Ceftaroline Fosamil 600 mg/ (Sodium Chloride) 100 mls @ 100 mls/hr IVPB Q12 EZE Last Admin: 04/04/17 09:31 Dose: 100 mls/hr Metformin HCl (Glucophage) 500 mg PO DAILY EZE PRN Reason: Protocol Last Admin: 10/01/17 09:31 Dose: 500 mg Methadone HCl (Methadone) 30 mg PO 1900 EZE PRN Reason: Protocol Last Admin: 04/03/17 18:12 Dose: 30 mg Methadone HCl (Methadone) 40 mg PO 0800 EZE PRN Reason: Protocol Last Admin: 04/04/17 08:27 Dose: 40 mg Metoprolol Tartrate (Lopressor) 12.5 mg PO BRKDIN [facility] Multivitamins/Minerals (Therapeutic-M Tab) 1 tab PO 0800 EZE PRN Reason: Protocol Last Admin: 04/04/17 08:28 Dose: 1 tab Ondansetron HCl (Zofran Inj) 4 mg IVP ONCE PRN; Protocol PRN Reason: Nausea/Vomiting - Labs Labs: 04/01/17 06:00 04/01/17 06:00 - Constitutional Appears: Well, Non-toxic, No Acute Distress - Extremities Exam Additional comments: RLE focused physical exam: Dressing appears clean/dry/intact with very mild sangious strikethrough noted. VASC: DP and PT pulses palpable. CFT WNL. TG warm to warm. Mild non-pitting edema noted to forefoot. NEURO: Protective sensation diminished. DERM: Ulceration measuring approximately 1.5 x 1.3 cm noted to plantar aspect of 5th met head with a granular base and hyperkeratotic rim. Mild sangious drainaged noted. Surgical incision to dorsal aspect of 5th metatarsal appears well-coapted with sutures intact and no wound dehiscence noted. No maceration noted to plantar forefoot and at distal aspect of incision. No erythema, no purulence or no odor noted. ORTHO: Mild tenderness to palpation plantar ulceration - Neurological Exam Neurological Exam: Alert, Awake - Psychiatric Exam Psychiatric exam: Normal Affect, Normal Mood Assessment and Plan - Assessment and Plan (Free Text) Assessment: 67 year old male POD#6 right foot partial 5th ray amputation Plan: Patient seen and evaluated Discussed plan with attending, Dr. Fry Chart, vitals, labs reviewed = afebrile, leukocytosis Right foot cleanse with saline solution, maxsorb packed into ulceration site, and dressed with DSD, ABD, and kerlix C/w local wound care qd Informed patient wearing darco forefoot offloading wedge shoe is part of treatment process, in order for plantar ulceration to be able to heal. C/w ambulation in wedge shoe with the assistance of walker, WBAT Per ID, continue Teflaro OR right foot cx: corynebacterium Awaiting pathology report Podiatry will continue to follow while in house <Kishan Fry - Last Filed: 04/05/17 08:16> Objective - Vital Signs/Intake and Output Vital Signs (last 24 hours): Temp Pulse Resp BP Pulse Ox 97.5 F L 81 18 107/74 99 04/04/17 16:40 04/04/17 17:27 04/04/17 16:40 04/04/17 17:27 04/04/17 16:40 Intake and Output: 04/05/17 04/05/17 06:59 18:59 Intake Total 660 Balance 660 - Medications Medications: Current Medications Acetaminophen (Tylenol 325mg Tab) 650 mg PO Q6H PRN; Protocol PRN Reason: Pain, Mild (1-3) Atorvastatin Calcium (Lipitor) 40 mg PO DIN EZE PRN Reason: Protocol Last Admin: 04/04/17 17:26 Dose: 40 mg Clonazepam (Klonopin) 1 mg PO Q12H EZE PRN Reason: Protocol Last Admin: 04/04/17 20:30 Dose: 1 mg Enoxaparin Sodium (Lovenox) 40 mg SC DAILY EZE PRN Reason: Protocol Last Admin: 04/04/17 09:31 Dose: 40 mg Famotidine (Pepcid) 40 mg PO HS EZE PRN Reason: Protocol Last Admin: 04/04/17 22:05 Dose: 40 mg Ceftaroline Fosamil 600 mg/ (Sodium Chloride) 100 mls @ 100 mls/hr IVPB Q12 EZE Last Admin: 04/04/17 22:04 Dose: 100 mls/hr Metformin HCl (Glucophage) 500 mg PO DAILY EZE PRN Reason: Protocol Last Admin: 04/04/17 09:31 Dose: 500 mg Metoprolol Tartrate (Lopressor) 12.5 mg PO BRKDIN [facility] Last Admin: 04/04/17 17:27 Dose: 12.5 mg Multivitamins/Minerals (Therapeutic-M Tab) 1 tab PO 0800 EZE PRN Reason: Protocol Last Admin: 04/04/17 08:28 Dose: 1 tab Ondansetron HCl (Zofran Inj) 4 mg IVP ONCE PRN; Protocol PRN Reason: Nausea/Vomiting - Labs Labs: 04/01/17 06:00 04/01/17 06:00 Attending/Attestation - Attestation I have personally seen and examined this patient.: Yes I have fully participated in the care of the patient.: Yes I have reviewed all pertinent clinical information, including history, physical exam and plan: Yes
--- NOTE | 2017-04-04 12:54 | PN ---
DATE: 04/04/2017 SUBJECTIVE: The patient is in the TCU. His wound and his foot look good. No chest pain, no shortness of breath noted. OBJECTIVE: VITAL SIGNS: Blood pressure is 110/51, the heart rate is in the 50s. NECK: Negative JVD. LUNGS: Without rales. HEART: Reveals S1 and S2. EXTREMITIES: Bandage. LABORATORIES: Noted. IMPRESSION: 1. Peripheral vascular disease. 2. Status post surgery of the lower extremity. 3. Stable angina. 4. Severe chronic obstructive pulmonary disease. 5. Coronary artery disease. Given these findings, the patient is doing well. We will decrease the Lopressor given his marked bradycardia. Leif Oleary MD
--- NOTE | 2017-04-05 03:45 | PN ---
DATE: 04/02/2017 SUBJECTIVE: The patient is status post foot surgery, seems to be doing well. Currently on IV Teflaro. The patient is clinically stable, afebrile. PHYSICAL EXAMINATION VITAL SIGNS: Shows temperature 97.7, heart rate 45, blood pressure 104/55, respirations 18, saturation 98%. HEAD AND NECK: Normal. No JVD. No thyromegaly. CHEST: Clear. Good air entry. CARDIAC: First sound and second sound normal. ABDOMEN: Soft and nontender. EXTREMITIES: No edema. NEUROLOGIC: Normal. The patient seems walking with a new shoes, difficult ambulation, sometimes uses a walker, but most of the time, he walks without it. IMPRESSION AND PLAN: 1. Status post amputation of the fifth small toe of the right foot. Continue current local wound care. 2. Osteomyelitis/cellulitis. Continue IV Teflaro. 3. Hypertension, diabetes type 2, continue current therapy. The patient is off SANJANA inhibitor due to hyperkalemia. 4. Hypercholesterolemia. Stable with Lipitor. 5. Chronic back pain. Continue methadone. 6. Chronic anxiety. Continue Klonopin. 7. Gait disorder. Continue current physical therapy. We will follow up clinically. Tate Villa MD
--- NOTE | 2017-04-05 04:33 | PN ---
DATE: 04/03/2017 SUBJECTIVE: The patient seem stable, walking, most of the time without a walker. He has no chest pain. No short of breath. No nausea and no vomiting. Doing very well. PHYSICAL EXAMINATION: VITAL SIGNS: Temperature 98.2, heart rate 58, blood pressure is 110/62, respiration 18, saturation 96% on room air. HEENT: Normal. NECK: No JVD. No thyromegaly. CHEST: Clear. Good air entry. CARDIAC: First sound and second sound normal. ABDOMEN: Soft and nontender. EXTREMITIES: No edema. Right foot has a new shoes with large area. NEUROLOGIC: The patient is walking sometimes with a walker, but seem stable gait and nonfocal. LABORATORY DATA: None. IMPRESSION AND PLAN: 1. Status post amputation of the right small toe of the right foot. Continue local wound care. Continue IV Teflaro. 2. Osteomyelitis and cellulitis. Continue IV Teflaro 600 b.i.d. q. 12 hours. The patient seems tolerating it well. 3. Diabetes, hypertension, and hypercholesterolemia. Continue metformin insulin coverage. The patient is medically stable. 4. History of coronary artery disease, stable. Seen by [employer] before. 5. Generalized weakness, gait disorder. Continue rehab. Continue IV antibiotics, physical therapy and local wound care. Tate Villa MD
[2017-04-05] MEDS: Multivitamin With Minerals Tab PO SCH (08:40)
--- NOTE | 2017-04-05 10:54 | PN ---
DATE: 04/05/2017 CARDIOLOGY FOLLOWUP SUBJECTIVE: The patient is ambulating with assistance, no shortness of breath. No chest pain. Blood pressure 107/74, heart rate in the 80s. Neck: Negative JVD. Lungs: Without rales. Heart: Reveal S1, S2. Extremities: Wound is clean. Laboratories were not done today. IMPRESSION: 1. Status post surgery on the lower extremity. 2. Severe peripheral vascular disease. 3. Stable angina. 4. History of coronary bypass surgery. 5. Coronary artery disease. 6. History of chronic obstructive pulmonary disease. Given these findings, the patient is doing well with physical therapy. We will restart his aspirin today. Leif Oleary MD
--- NOTE | 2017-04-05 11:12 | HP ---
DATE: 04/01/2017 REASON FOR ADMISSION: IV antibiotics for osteomyelitis of the right foot. HISTORY OF PRESENT ILLNESS: A 67-year-old male came in to the hospital with right foot infection, small toe, status post surgery, removal of metatarsal bone, completely removed and cleaned the wound very good. The patient had local wound care everyday and recommendation to continue IV Teflaro 600 mg b.i.d. The patient was transferred to TCU for continuation of IV therapy and continuation of all other medications. The patient is 67, with diabetes, hypertension, coronary artery disease, chronic back pain, hypercholesterolemia, chronic anxiety, stable. PAST MEDICAL HISTORY: As I mentioned above, recurrent foot infections, chronic and multiple foot surgery, amputations, also has hypercholesterolemia, coronary artery disease, chronic back pain, chronic anxiety, diabetes type 2, well controlled. ALLERGIES: NO KNOWN ALLERGIES. SOCIAL HISTORY: No smoking or drinking. He lives with a supportive girlfriend. FAMILY HISTORY: Noncontributory. HOME MEDICATIONS: As I mentioned above that include metformin 500 mg p.o. daily, Klonopin 1 mg b.i.d., Zofran p.r.n., multivitamins, metoprolol 25 mg twice a day, methadone 70 mg daily, Pepcid 40 mg p.o. at bedtime, Lovenox 40 mg subcu daily, Teflaro 600 mg IV b.i.d. on the medical floor and will be transferred to TCU, Lipitor 40 mg daily and Tylenol p.r.n. REVIEW OF SYSTEMS: As in the present illness. Back pain, foot discomfort, chronic anxiety, agitation, gait disorder. PAST SURGICAL HISTORY: The patient had cholecystotomy. He has osteomyelitis of the spine with removal and surgery done on his spine, also he had history of multiple foot surgeries, osteomyelitis. The patient's gait is stable, walking without a walker. PHYSICAL EXAMINATION: VITAL SIGNS: On 04/01/2017, temperature 98.2, heart rate is 54, blood pressure 97/42, respirations 18, saturation 98% on room air. HEAD AND NECK: Normal. No JVD. No thyromegaly. CHEST: Clear. Good air entry. CARDIAC: First and second sounds normal. ABDOMEN: Soft, nontender. EXTREMITIES: No edema. NEUROLOGIC: The patient moves all extremities, walks sable gait, sometimes just need a walker, especially after surgery. The patient is alert, awake, oriented x3. LABORATORY DATA: White count 5.4, hemoglobin 9.2, hematocrit 29.7, platelets 135. Chemistry, sodium 140, potassium 4, chloride 99, bicarbonate 33, BUN 18, creatinine 0.9. Liver function test is normal. IMPRESSION AND PLAN: 1. Osteomyelitis of right small toe, status post surgical treatment with removal of osteomyelitis bone area. Currently, we will continue IV Teflaro for possible osteomyelitis and cellulitis. Continue local wound care by Dr. Rich and follow up with Dr. Lucas and Dr. English. 2. Chronic back pain. 3. Chronic anxiety. Continue methadone, Klonopin for his chronic condition. 4. Diabetes, well controlled. Hemoglobin A1c is 6.5 and less. He is doing well. 5. Hypertension. 6. Coronary artery disease. Continue current therapy. Continue Lipitor for his hypercholesterolemia. 7. Gait disorder. The patient has special shoes now. We will continue the new treatment for his foot modification shoes to help him with his wound and for any further complication. Continue current therapy. Tate Villa MD
[2017-04-05] MEDS: Ceftaroline 600 MG in Sodium Chloride 0.9% 100 ML IVPB SCH ×2 (11:22→21:14)
[2017-04-05] MEDS: Enoxaparin 40 mg Syringe SC SCH (11:22)
--- NOTE | 2017-04-05 11:49 | CP.PCM.PN ---
<Barak Allen - Last Filed: 04/05/17 11:46> Subjective - Date & Time of Evaluation Date of Evaluation: 04/05/17 Time of Evaluation: 11:46 - Subjective Subjective: Podiatry Progress Note - Dr. Fry 67 year old male patient PMHx DM, HTN, hx of osteomyelitis, previous right foot amputation seen at bedside POD#7 right foot partial 5th ray amputation (DOS: ). Patient is seen ambulating in surgical shoe with dressing off and socks on. Patient states that the dressing fell off 10 minutes prior to visitation. Patient is in NAD and AAOx3. Patient reports no pain to right foot surgical site. Patient denies any acute events overnight. Patient denies N/V/F/D/C/SOB/ calf pain. Offers no other pedal complaints at this time. Objective - Vital Signs/Intake and Output Vital Signs (last 24 hours): Temp Pulse Resp BP Pulse Ox 97.7 F 41 L 18 123/46 L 97 04/05/17 10:54 04/05/17 10:54 04/05/17 10:54 04/05/17 10:54 04/05/17 10:54 Intake and Output: 04/05/17 04/05/17 06:59 18:59 Intake Total 660 Balance 660 - Medications Medications: Current Medications Acetaminophen (Tylenol 325mg Tab) 650 mg PO Q6H PRN; Protocol PRN Reason: Pain, Mild (1-3) Aspirin (Ecotrin) 81 mg PO 0800 EZE Atorvastatin Calcium (Lipitor) 40 mg PO DIN EZE PRN Reason: Protocol Last Admin: 04/04/17 17:26 Dose: 40 mg Clonazepam (Klonopin) 1 mg PO Q12H EZE PRN Reason: Protocol Last Admin: 04/05/17 08:40 Dose: 1 mg Enoxaparin Sodium (Lovenox) 40 mg SC DAILY EZE PRN Reason: Protocol Last Admin: 04/05/17 11:22 Dose: 40 mg Famotidine (Pepcid) 40 mg PO HS EZE PRN Reason: Protocol Last Admin: 04/04/17 22:05 Dose: 40 mg Ceftaroline Fosamil 600 mg/ (Sodium Chloride) 100 mls @ 100 mls/hr IVPB Q12 EZE Last Admin: 04/05/17 11:22 Dose: 100 mls/hr Metformin HCl (Glucophage) 500 mg PO DAILY [facility] PRN Reason: Protocol Last Admin: 04/05/17 11:22 Dose: 500 mg Methadone HCl (Methadone) 40 mg PO 0800 EZE Methadone HCl (Methadone) 30 mg PO 1900 [facility] Metoprolol Tartrate (Lopressor) 12.5 mg PO BRKDIN [facility] Last Admin: 04/05/17 11:22 Dose: Not Given Multivitamins/Minerals (Therapeutic-M Tab) 1 tab PO 0800 [facility] PRN Reason: Protocol Last Admin: 04/05/17 08:40 Dose: 1 tab Ondansetron HCl (Zofran Inj) 4 mg IVP ONCE PRN; Protocol PRN Reason: Nausea/Vomiting - Labs Labs: 04/01/17 06:00 04/01/17 06:00 - Constitutional Appears: Well, Non-toxic, No Acute Distress - Extremities Exam Additional comments: RLE focused physical exam: VASC: DP and PT pulses palpable. CFT WNL. TG warm to warm. Mild non-pitting edema noted to forefoot. NEURO: Protective sensation diminished. DERM: Ulceration measuring approximately 1.5 x 1.3 cm noted to plantar aspect of 5th met head with a granular base and hyperkeratotic rim. Mild sangious drainaged noted. Surgical incision to dorsal aspect of 5th metatarsal appears well-coapted with sutures intact and no wound dehiscence noted. No maceration noted to plantar forefoot and at distal aspect of incision. No erythema, no purulence or no odor noted. ORTHO: Mild tenderness to palpation plantar ulceration - Neurological Exam Neurological Exam: Alert, Awake, Oriented x3 - Psychiatric Exam Psychiatric exam: Normal Affect, Normal Mood Assessment and Plan - Assessment and Plan (Free Text) Assessment: 67 year old male POD#7 right foot partial 5th ray amputation Plan: Patient seen and evaluated Discussed plan with attending, Dr. Fry Chart, vitals, labs reviewed = afebrile, absent leukocytosis Right foot cleanse with saline solution, maxsorb packed into ulceration site, and dressed with DSD, ABD, and kerlix C/w local wound care qd Informed patient wearing darco forefoot offloading wedge shoe is part of treatment process, in order for plantar ulceration to be able to heal. C/w ambulation in wedge shoe with the assistance of walker, WBAT Per ID, continue Teflaro OR right foot cx: corynebacterium Awaiting pathology report Patient is stable per podiatry Podiatry will continue to follow while in house Will followup in wound care clinic upon discharge <Kishan Fry - Last Filed: 04/06/17 09:52> Objective - Vital Signs/Intake and Output Vital Signs (last 24 hours): Temp Pulse Resp BP Pulse Ox 97.8 F 46 L 18 142/66 98 04/06/17 08:53 04/06/17 08:53 04/06/17 08:53 04/06/17 08:53 04/06/17 08:53 Intake and Output: 04/06/17 04/06/17 06:59 18:59 Intake Total 480 Balance 480 - Medications Medications: Current Medications Acetaminophen (Tylenol 325mg Tab) 650 mg PO Q6H PRN; Protocol PRN Reason: Pain, Mild (1-3) Aspirin (Ecotrin) 81 mg PO 0800 [facility] Last Admin: 04/06/17 08:12 Dose: 81 mg Atorvastatin Calcium (Lipitor) 40 mg PO DIN EZE PRN Reason: Protocol Last Admin: 04/04/17 17:26 Dose: 40 mg Clonazepam (Klonopin) 1 mg PO Q12H EZE PRN Reason: Protocol Last Admin: 04/06/17 08:17 Dose: 1 mg Enoxaparin Sodium (Lovenox) 40 mg SC DAILY EZE PRN Reason: Protocol Last Admin: 04/05/17 11:22 Dose: 40 mg Famotidine (Pepcid) 40 mg PO HS EZE PRN Reason: Protocol Last Admin: 04/05/17 21:14 Dose: 40 mg Ceftaroline Fosamil 600 mg/ (Sodium Chloride) 100 mls @ 100 mls/hr IVPB Q12 EZE Last Admin: 04/05/17 21:14 Dose: 100 mls/hr Metformin HCl (Glucophage) 500 mg PO DAILY EZE PRN Reason: Protocol Last Admin: 04/06/17 08:13 Dose: 500 mg Methadone HCl (Methadone) 40 mg PO 0800 EZE Last Admin: 04/06/17 08:18 Dose: 40 mg Methadone HCl (Methadone) 30 mg PO 1900 [facility] Last Admin: 04/05/17 20:16 Dose: 30 mg Metoprolol Tartrate (Lopressor) 12.5 mg PO BRKDIN EZE Last Admin: 04/06/17 08:13 Dose: 12.5 mg Multivitamins/Minerals (Therapeutic-M Tab) 1 tab PO 0800 EZE PRN Reason: Protocol Last Admin: 04/06/17 08:14 Dose: 1 tab Ondansetron HCl (Zofran Inj) 4 mg IVP ONCE PRN; Protocol PRN Reason: Nausea/Vomiting - Labs Labs: 04/05/17 17:10 04/05/17 17:10 Attending/Attestation - Attestation I have personally seen and examined this patient.: Yes I have fully participated in the care of the patient.: Yes I have reviewed all pertinent clinical information, including history, physical exam and plan: Yes
--- NOTE | 2017-04-05 13:33 | CP.PCM.PN ---
Subjective - Date & Time of Evaluation Date of Evaluation: 04/05/17 Time of Evaluation: 11:45 - Subjective Subjective: Comfortable, doing his physical therapy well, no pain in the right foot currently, no fevers, no nausea, no diarrhea. Objective - Vital Signs/Intake and Output Vital Signs (last 24 hours): Temp Pulse Resp BP Pulse Ox 97.5 F L 81 18 107/74 99 04/04/17 16:40 04/04/17 17:27 04/04/17 16:40 04/04/17 17:27 04/04/17 16:40 Intake and Output: 04/05/17 04/05/17 06:59 18:59 Intake Total 660 Balance 660 - Medications Medications: Current Medications Acetaminophen (Tylenol 325mg Tab) 650 mg PO Q6H PRN; Protocol PRN Reason: Pain, Mild (1-3) Aspirin (Ecotrin) 81 mg PO 0800 [facility] Atorvastatin Calcium (Lipitor) 40 mg PO DIN [facility] PRN Reason: Protocol Last Admin: 04/04/17 17:26 Dose: 40 mg Clonazepam (Klonopin) 1 mg PO Q12H EZE PRN Reason: Protocol Last Admin: 04/05/17 08:40 Dose: 1 mg Enoxaparin Sodium (Lovenox) 40 mg SC DAILY [facility] PRN Reason: Protocol Last Admin: 04/04/17 09:31 Dose: 40 mg Famotidine (Pepcid) 40 mg PO HS [facility] PRN Reason: Protocol Last Admin: 04/04/17 22:05 Dose: 40 mg Ceftaroline Fosamil 600 mg/ (Sodium Chloride) 100 mls @ 100 mls/hr IVPB Q12 [facility] Last Admin: 04/04/17 22:04 Dose: 100 mls/hr Metformin HCl (Glucophage) 500 mg PO DAILY [facility] PRN Reason: Protocol Last Admin: 04/04/17 09:31 Dose: 500 mg Methadone HCl (Methadone) 40 mg PO 0800 EZE Methadone HCl (Methadone) 30 mg PO 1900 [facility] Metoprolol Tartrate (Lopressor) 12.5 mg PO BRKDIN [facility] Last Admin: 04/04/17 17:27 Dose: 12.5 mg Multivitamins/Minerals (Therapeutic-M Tab) 1 tab PO 0800 EZE PRN Reason: Protocol Last Admin: 04/05/17 08:40 Dose: 1 tab Ondansetron HCl (Zofran Inj) 4 mg IVP ONCE PRN; Protocol PRN Reason: Nausea/Vomiting - Labs Labs: 04/01/17 06:00 04/01/17 06:00 - Constitutional Appears: Non-toxic, No Acute Distress - Head Exam Head Exam: NORMAL INSPECTION - ENT Exam ENT Exam: Mucous Membranes Moist - Neck Exam Neck Exam: absent: Meningismus - Respiratory Exam Respiratory Exam: Decreased Breath Sounds - Cardiovascular Exam Cardiovascular Exam: +S1, +S2 - GI/Abdominal Exam GI & Abdominal Exam: Soft. absent: Tenderness - Extremities Exam Additional comments: right foot with dressings in place Assessment and Plan - Assessment and Plan (Free Text) Plan: Assessment right foot infected ulcer at site of 5th metatarsal amputation for previous osteomyelitis, with probable new onset osteomyelitis S/P partial amputation of the 5th ray POD #7 history of skin and skin structure infection at the site of previous laminectomy and hardware placement history of HCAP history MRSA bacteremia with discitis and osteomyelitis S/P decompression laminectomy history of Cholelithiasis S/P cholecystectomy coronary artery disease hypertension diabetes mellitus dementia history of right foot osteomyelitis and amputation of right second toe CAD S/P PCI with cardiac stents placed and coronary bypass graft Plan will continue Teflaro; OR pathology shows acute osteomyelitis but no comment on bone margins - OR cx showed Corynebacterium which may be a contaminant; blood cx are negative discussed with Dr. Fry - will discuss with pathology regarding bone margins before final antibiotic decision can be made but Podiatry feels all infected bone has been removed will continue to monitor clinically
[2017-04-05 17:33] LABS: ALKALINE PHOSPHATASE 101 U/L (38-126); ALT/SGPT 57 U/L (7-56); AST/SGOT 77 U/L (17-59); BASO # 0.02 K/mm3 (0.0-2.0); BASO % 0.3 % (0.0-3.0); BILIRUBIN,TOTAL 0.5 mg/dL (0.2-1.3); BLOOD UREA NITROGEN 28 mg/dL (7-21); CALCIUM 9.1 mg/dL (8.4-10.5); CARBON DIOXIDE 32 mmol/L (21-33); CHLORIDE 97 mmol/L (98-107); EOS # 0.3 (0.0-0.7); EOS % 4.2 % (1.5-5.0); GFR AFRICAN-AMERICAN > 60; GLUCOSE,RANDOM 105 mg/dL (70-110); GRAN # 3.64 (1.4-6.5); HEMATOCRIT 33.5 % (42.0-52.0); LYMPH # 1.9 (1.2-3.4); LYMPH % 30.4 % (22.0-35.0); MEAN CELL VOLUME 85.7 fl (80.0-105.0); MEAN CORPUSCULAR HEMOGLOBIN 26.9 pg (25.0-35.0); MEAN CORPUSCULAR HGB CONC 31.3 g/dl (31.0-37.0); MEAN PLATELET VOLUME 10.4 fl (7.0-11.0); MONO # 0.5 (0.1-0.6); MONO % 8.1 % (1.0-6.0); POTASSIUM 4.5 mmol/L (3.6-5.0); RED CELL DISTRIBUTION WIDTH 16.4 % (11.5-14.5); SODIUM 138 mmol/L (132-148); TOTAL PROTEIN 7.7 g/dL (5.8-8.3); WHITE BLOOD COUNT 6.4 10^3/ul (4.5-11.0)
[2017-04-06] MEDS: Multivitamin With Minerals Tab PO SCH (08:14)
--- NOTE | 2017-04-06 08:19 | CP.PCM.PCO ---
Physician Communication Note - Physician Communication Note Physician Communication Note: was called for the consultation
[2017-04-06] MEDS: Enoxaparin 40 mg Syringe SC SCH (10:21)
[2017-04-06] MEDS: Ceftaroline 600 MG in Sodium Chloride 0.9% 100 ML IVPB SCH ×2 (10:22→18:48)
--- NOTE | 2017-04-06 11:18 | CP.PCM.PN ---
<Barak Allen - Last Filed: 04/06/17 11:14> Subjective - Date & Time of Evaluation Date of Evaluation: 04/06/17 Time of Evaluation: 11:14 - Subjective Subjective: Podiatry Progress Note - Dr. Fry 67 year old male patient PMHx DM, HTN, hx of osteomyelitis, previous right foot amputation seen at bedside POD#8 right foot partial 5th ray amputation (DOS: ). Patient is seen resting comfortable out of bed, sitting in a chair, in NAD and AAOx3. Patient reports no pain to right foot surgical site. Patient denies any acute events overnight. Patient denies N/V/F/D/C/SOB/calf pain. Offers no other pedal complaints at this time. Objective - Vital Signs/Intake and Output Vital Signs (last 24 hours): Temp Pulse Resp BP Pulse Ox 97.8 F 46 L 18 142/66 98 04/06/17 08:53 04/06/17 08:53 04/06/17 08:53 04/06/17 08:53 04/06/17 08:53 Intake and Output: 04/06/17 04/06/17 06:59 18:59 Intake Total 480 Balance 480 - Medications Medications: Current Medications Acetaminophen (Tylenol 325mg Tab) 650 mg PO Q6H PRN; Protocol PRN Reason: Pain, Mild (1-3) Aspirin (Ecotrin) [address] [facility] Last Admin: 04/06/17 08:12 Dose: 81 mg Atorvastatin Calcium (Lipitor) 40 mg PO DIN [facility] PRN Reason: Protocol Last Admin: 04/04/17 17:26 Dose: 40 mg Clonazepam (Klonopin) 1 mg PO Q12H [facility] PRN Reason: Protocol Last Admin: 04/06/17 08:17 Dose: 1 mg Enoxaparin Sodium (Lovenox) 40 mg SC DAILY [facility] PRN Reason: Protocol Last Admin: 04/06/17 10:21 Dose: 40 mg Famotidine (Pepcid) 40 mg PO HS [facility] PRN Reason: Protocol Last Admin: 04/05/17 21:14 Dose: 40 mg Ceftaroline Fosamil 600 mg/ (Sodium Chloride) 100 mls @ 100 mls/hr IVPB Q12 [facility] Last Admin: 04/06/17 10:22 Dose: 100 mls/hr Metformin HCl (Glucophage) [address] [facility] PRN Reason: Protocol Last Admin: 04/06/17 10:20 Dose: Not Given Methadone HCl (Methadone) [address] [facility] Last Admin: 04/06/17 08:18 Dose: 40 mg Methadone HCl (Methadone) [address] [facility] Last Admin: 04/05/17 20:16 Dose: 30 mg Metoprolol Tartrate (Lopressor) 12.[address] [facility] Last Admin: 04/06/17 08:13 Dose: 12.5 mg Multivitamins/Minerals (Therapeutic-M Tab) [address] [facility] PRN Reason: Protocol Last Admin: 04/06/17 08:14 Dose: 1 tab Ondansetron HCl (Zofran Inj) 4 mg IVP ONCE PRN; Protocol PRN Reason: Nausea/Vomiting - Labs Labs: 04/05/17 17:10 04/05/17 17:10 - Constitutional Appears: Well, Non-toxic, No Acute Distress - Extremities Exam Additional comments: RLE focused physical exam: VASC: DP and PT pulses palpable. CFT WNL. TG warm to warm. No edema noted. NEURO: Protective sensation diminished. DERM: Ulceration measuring approximately 1.5 x 1.3 cm noted to plantar aspect of 5th met head with a granular base and hyperkeratotic rim. Mild sangious drainaged noted. Surgical incision to dorsal aspect of 5th metatarsal appears well-coapted with sutures intact and no wound dehiscence noted. No maceration noted to plantar forefoot and at distal aspect of incision. No erythema, no purulence or no odor noted. ORTHO: Mild tenderness to palpation plantar ulceration - Neurological Exam Neurological Exam: Alert, Awake, Oriented x3 - Psychiatric Exam Psychiatric exam: Normal Affect, Normal Mood Assessment and Plan - Assessment and Plan (Free Text) Assessment: 67 year old male POD#8 right foot partial 5th ray amputation Plan: Patient seen and evaluated Discussed plan with attending, Dr. Fry Chart, vitals, labs reviewed = afebrile, absent leukocytosis Right foot cleanse with saline solution, maxsorb packed into ulceration site, and dressed with DSD, ABD, and kerlix C/w local wound care qd Informed patient wearing darco forefoot offloading wedge shoe is part of treatment process, in order for plantar ulceration to be able to heal. C/w ambulation in wedge shoe with the assistance of walker, WBAT Per ID, continue Teflaro OR right foot cx: corynebacterium Awaiting pathology report Patient is stable per podiatry Podiatry will continue to follow while in house Will followup in wound care clinic upon discharge <Kishan Fry - Last Filed: 04/07/17 07:35> Objective - Vital Signs/Intake and Output Vital Signs (last 24 hours): Temp Pulse Resp BP Pulse Ox 97.8 F 46 L 18 142/66 98 04/06/17 08:53 04/06/17 08:53 04/06/17 08:53 04/06/17 08:53 04/06/17 08:53 - Medications Medications: Current Medications Acetaminophen (Tylenol 325mg Tab) 650 mg PO Q6H PRN; Protocol PRN Reason: Pain, Mild (1-3) Aspirin (Ecotrin) [address] [facility] Last Admin: 04/06/17 08:12 Dose: 81 mg Atorvastatin Calcium (Lipitor) [address] [facility] PRN Reason: Protocol Last Admin: 04/06/17 17:45 Dose: 40 mg Clonazepam (Klonopin) 1 mg PO Q12H [facility] PRN Reason: Protocol Last Admin: 04/06/17 20:55 Dose: 1 mg Enoxaparin Sodium (Lovenox) 40 mg SC 0630 [facility] PRN Reason: Protocol Last Admin: 04/07/17 05:56 Dose: 40 mg Famotidine (Pepcid) 40 mg PO HS [facility] PRN Reason: Protocol Last Admin: 04/06/17 21:42 Dose: 40 mg Ceftaroline Fosamil 600 mg/ (Sodium Chloride) 100 mls @ 100 mls/hr IVPB 0600, 1800 [facility] PRN Reason: Protocol Stop: 04/09/17 23:59 Last Admin: 04/07/17 05:55 Dose: 100 mls/hr Metformin HCl (Glucophage) 500 mg PO 0800 [facility] PRN Reason: Protocol Methadone HCl (Methadone) [address] [facility] Last Admin: 04/06/17 08:18 Dose: 40 mg Methadone HCl (Methadone) [address] [facility] Last Admin: 04/06/17 18:49 Dose: 30 mg Multivitamins/Minerals (Therapeutic-M Tab) 1 tab PO 0800 [facility] PRN Reason: Protocol Last Admin: 04/06/17 08:14 Dose: 1 tab Ondansetron HCl (Zofran Inj) 4 mg IVP ONCE PRN; Protocol PRN Reason: Nausea/Vomiting - Labs Labs: 04/05/17 17:10 04/05/17 17:10 Attending/Attestation - Attestation I have personally seen and examined this patient.: Yes I have fully participated in the care of the patient.: Yes I have reviewed all pertinent clinical information, including history, physical exam and plan: Yes
--- NOTE | 2017-04-06 11:42 | PN ---
DATE: 04/05/2017 SUBJECTIVE: The patient is feeling nice in the transitional care unit, currently on IV antibiotic with Teflaro. The patient is stable. Nurses quote that still he is sometimes confused, forgetful, and seems stable right now and understands and is alert, awake, and oriented x3, in no acute distress. PHYSICAL EXAMINATION: VITAL SIGNS: Temperature 97.9, heart rate 41, blood pressure 100/56, respiration 18, saturation 100%. HEAD AND NECK: Normal. No JVD. No thyromegaly. CHEST: Clear. Good air entry. CARDIAC: First sound and second sound normal. ABDOMEN: Soft and nontender. EXTREMITIES: Right foot fifth metatarsal amputation, partial amputation and removal of the infected bone. NEUROLOGIC: The patient is moving without any assistance. Stable and comfortable with the new shoes with pressure offload of forefoot. LABORATORY DATA: The patient's blood test shows white count of 6.4, hemoglobin 10.5, hematocrit 33.5, platelets 143. Chemistries showed sodium 138, potassium 4.5, chloride 97, bicarbonate 32, BUN 28, creatinine 1.2. Liver function test showed some slight elevation of 77 and 57, probably antibiotic related. IMPRESSION AND PLAN: 1. Right foot osteomyelitis, status post partial amputation and removal of metatarsal bone. Continue IV Teflaro, decision on how long depends on the pathology report and if the margins are clean off any infection. At this time, we will continue Teflaro for now. We will discuss further with Dr. Lucas. 2. Coronary artery disease, hypertension, hypercholesterolemia, diabetes type 2. Continue current therapy. 3. Generalized weakness. Continue physical therapy, continue walking and we will follow up clinically. 4. Chronic back pain and chronic anxiety. Assurance given to the patient, explained the situation, feels better. Continue current therapy. The patient to continue methadone 70 and Klonopin b.i.d. Continue current therapy. Tate Villa MD
--- NOTE | 2017-04-06 15:53 | PN ---
DATE: SUBJECTIVE: The patient is in bed in no acute distress, nontoxic. PHYSICAL EXAMINATION: VITAL SIGNS: Temperature is 98, blood pressure is 120/70, respiratory rate of 16. HEENT: Unremarkable. NECK: Supple. LUNGS: Decreased breath sounds. HEART: Normal S1 and S2. ABDOMEN: Soft and nontender. LABORATORY DATA: Reveals a white count of 6.4, hemoglobin of 10, platelets of 143. BUN of 28, creatinine of 1.2. Microbiology is noted. ASSESSMENT AND PLAN: This is a 67-year-old with a right foot infected ulcer, fifth metatarsal amputation for previous osteomyelitis, probable new onset of osteomyelitis status post partial amputation of fifth ray. Postprocedure day 8 and a history of skin infection in the site of previous laminectomy and a hardware replacement, history o age gap, history of methicillin-resistant Staphylococcus aureus bacteremia, and diskitis, and osteomyelitis status post decompression laminectomy, history of cholelithiasis, and cholecystectomy, history of coronary artery disease, hypertension, diabetes, and dementia, history of right foot osteomyelitis and amputation of the right second toe. reviewed pathology reveals the pathology from the bone from 03/30/2017, amputated toe with no evidence of acute osteomyelitis, one portion of the metatarsal bone with acute osteomyelitis of the separate portion metatarsal bone with no acute osteomyelitis, adjacent inflamed granulation tissue and this is the bone of the fifth right foot with one area with acute osteomyelitis, will need for a long antibiotic therapy. We will repeat a sed rate and C-reactive protein currently on Teflaro. Roel English MD
--- NOTE | 2017-04-06 16:46 | PN ---
DATE: 04/06/2017 CARDIOLOGY FOLLOWUP SUBJECTIVE: The patient is asymptomatic. OBJECTIVE: VITAL SIGNS: Blood pressure is 142/66, the heart rate varies from the high 40s to the low 60s. NECK: Negative JVD. LUNGS: Without rales. HEART: Reveals S1 and S2. EXTREMITIES: Bandage in lower extremities. LABORATORY DATA: No laboratories were done today. IMPRESSION: 1. Sinus bradycardia. 2. Stable angina. 3. Coronary artery disease. 4. History of bypass surgery. 5. Peripheral vascular disease. 6. Chronic obstructive pulmonary disease. Given these findings, I have been tapering his beta blockers because of his persistent bradycardia. We will discontinue his Lopressor today. Leif Oleary MD
[2017-04-07] MEDS: Ceftaroline 600 MG in Sodium Chloride 0.9% 100 ML IVPB SCH ×2 (05:55→17:28)
[2017-04-07] MEDS: Enoxaparin 40 mg Syringe SC SCH (05:56)
[2017-04-07] MEDS: Multivitamin With Minerals Tab PO SCH (08:21)
--- NOTE | 2017-04-07 10:56 | CP.PCM.PN ---
<Barak Allen - Last Filed: 04/07/17 10:53> Subjective - Date & Time of Evaluation Date of Evaluation: 04/07/17 Time of Evaluation: 10:53 - Subjective Subjective: Podiatry Progress Note - Dr. Fry 67 year old male patient PMHx DM, HTN, hx of osteomyelitis, previous right foot amputation seen at bedside POD#9 right foot partial 5th ray amputation (DOS: ). Patient is seen resting comfortable out of bed, sitting in a chair, in NAD and AAOx3. Patient reports no pain to right foot surgical site. Patient denies any acute events overnight. Patient denies N/V/F/D/C/SOB/calf pain. Offers no other pedal complaints at this time. Patient states that he is going home today or tomorrow. Objective - Vital Signs/Intake and Output Vital Signs (last 24 hours): Temp Pulse Resp BP Pulse Ox 97.3 F L 49 L 18 106/56 L 97 04/07/17 10:17 04/07/17 10:17 04/07/17 10:17 04/07/17 10:04/07/17 10:17 - Medications Medications: Current Medications Acetaminophen (Tylenol 325mg Tab) 650 mg PO Q6H PRN; Protocol PRN Reason: Pain, Mild (1-3) Aspirin (Ecotrin) 81 mg PO 0800 [facility] Last Admin: 04/07/17 08:21 Dose: 81 mg Atorvastatin Calcium (Lipitor) 40 mg PO DIN [facility] PRN Reason: Protocol Last Admin: 04/06/17 17:45 Dose: 40 mg Clonazepam (Klonopin) 1 mg PO Q12H [facility] PRN Reason: Protocol Last Admin: 04/07/17 08:24 Dose: 1 mg Enoxaparin Sodium (Lovenox) 40 mg SC 0630 [facility] PRN Reason: Protocol Last Admin: 04/07/17 05:56 Dose: 40 mg Famotidine (Pepcid) 40 mg PO HS [facility] PRN Reason: Protocol Last Admin: 04/06/17 21:42 Dose: 40 mg Ceftaroline Fosamil 600 mg/ (Sodium Chloride) 100 mls @ 100 mls/hr IVPB 0600, 1800 [facility] PRN Reason: Protocol Stop: 04/09/17 23:59 Last Admin: 04/07/17 05:55 Dose: 100 mls/hr Metformin HCl (Glucophage) 500 mg PO 0800 [facility] PRN Reason: Protocol Last Admin: 04/07/17 08:21 Dose: 500 mg Methadone HCl (Methadone) 40 mg PO 0800 [facility] Last Admin: 04/07/17 08:24 Dose: 40 mg Methadone HCl (Methadone) 30 mg PO 1900 [facility] Last Admin: 04/06/17 18:49 Dose: 30 mg Multivitamins/Minerals (Therapeutic-M Tab) 1 tab PO 0800 [facility] PRN Reason: Protocol Last Admin: 04/07/17 08:21 Dose: 1 tab Ondansetron HCl (Zofran Inj) 4 mg IVP ONCE PRN; Protocol PRN Reason: Nausea/Vomiting - Labs Labs: 04/05/17 17:10 04/05/17 17:10 - Constitutional Appears: Well, Non-toxic, No Acute Distress - Extremities Exam Additional comments: RLE focused physical exam: VASC: DP and PT pulses palpable. CFT WNL. TG warm to warm. No edema noted. NEURO: Protective sensation diminished. DERM: Ulceration measuring approximately 1.4 x 1.2 cm noted to plantar aspect of 5th met head with a granular base and hyperkeratotic rim with very mild maceration noted to the rim. Mild sangious drainaged noted. Surgical incision to dorsal aspect of 5th metatarsal appears well-coapted with sutures intact and no wound dehiscence noted. No maceration noted to plantar forefoot and at distal aspect of incision. No erythema, no purulence or no odor noted. ORTHO: Mild tenderness to palpation plantar ulceration - Neurological Exam Neurological Exam: Alert, Awake, Oriented x3 - Psychiatric Exam Psychiatric exam: Normal Affect, Normal Mood Assessment and Plan - Assessment and Plan (Free Text) Assessment: 67 year old male POD#9 right foot partial 5th ray amputation Plan: Patient seen and evaluated with attending, Dr. Fry Chart, vitals, labs reviewed = afebrile, absent leukocytosis Right foot cleanse with saline solution, maxsorb packed into ulceration site, and dressed with DSD, ABD, and kerlix C/w local wound care qd Informed patient wearing darco forefoot offloading wedge shoe is part of treatment process, in order for plantar ulceration to be able to heal. C/w ambulation in wedge shoe with the assistance of walker, WBAT Per ID, continue Teflaro OR right foot cx: corynebacterium Awaiting pathology report Patient is stable per podiatry Podiatry will continue to follow while in house Will followup in wound care clinic upon discharge <Kishan Fry - Last Filed: 04/08/17 08:40> Objective - Vital Signs/Intake and Output Vital Signs (last 24 hours): Temp Pulse Resp BP Pulse Ox 97.6 F 44 L 18 103/37 L 98 04/08/17 06:00 04/08/17 06:00 04/08/17 06:00 04/08/17 06:00 04/08/17 06:00 Intake and Output: 04/08/17 04/08/17 06:59 18:59 Intake Total 660 Balance 660 - Medications Medications: Current Medications Acetaminophen (Tylenol 325mg Tab) 650 mg PO Q6H PRN; Protocol PRN Reason: Pain, Mild (1-3) Aspirin (Ecotrin) 81 mg PO 0800 [facility] Last Admin: 04/07/17 08:21 Dose: 81 mg Atorvastatin Calcium (Lipitor) 40 mg PO DIN [facility] PRN Reason: Protocol Last Admin: 04/07/17 17:27 Dose: 40 mg Clonazepam (Klonopin) 1 mg PO Q12H [facility] PRN Reason: Protocol Last Admin: 04/08/17 08:10 Dose: 1 mg Enoxaparin Sodium (Lovenox) 40 mg SC 0630 [facility] PRN Reason: Protocol Last Admin: 04/08/17 05:33 Dose: 40 mg Famotidine (Pepcid) 40 mg PO HS [facility] PRN Reason: Protocol Last Admin: 04/07/17 21:25 Dose: 40 mg Ceftaroline Fosamil 600 mg/ (Sodium Chloride) 100 mls @ 100 mls/hr IVPB 0600, 1800 [facility] PRN Reason: Protocol Stop: 04/09/17 23:59 Last Admin: 04/08/17 05:33 Dose: 100 mls/hr Metformin HCl (Glucophage) 500 mg PO 0800 [facility] PRN Reason: Protocol Last Admin: 04/08/17 08:10 Dose: 500 mg Methadone HCl (Methadone) 40 mg PO 0800 [facility] Last Admin: 04/08/17 08:10 Dose: 40 mg Methadone HCl (Methadone) 30 mg PO 1900 [facility] Last Admin: 04/07/17 18:45 Dose: 30 mg Multivitamins/Minerals (Therapeutic-M Tab) 1 tab PO 0800 [facility] PRN Reason: Protocol Last Admin: 04/08/17 08:20 Dose: 1 tab Ondansetron HCl (Zofran Inj) 4 mg IVP ONCE PRN; Protocol PRN Reason: Nausea/Vomiting - Labs Labs: 04/05/17 17:10 04/05/17 17:10 Attending/Attestation - Attestation I have personally seen and examined this patient.: Yes I have fully participated in the care of the patient.: Yes I have reviewed all pertinent clinical information, including history, physical exam and plan: Yes
--- NOTE | 2017-04-07 13:25 | PN ---
DATE: 04/06/2017 SUBJECTIVE: The patient seemed stable, comfortable, using special shoes to walking with, there are a few trips happened. The patient was advised to use a walker and to be careful with walking. There is no chest pain, no short of breath. He is hemodynamically stable. Staff is comfortable with him. No distress. PHYSICAL EXAMINATION: VITAL SIGNS: His temperature is 97.8, heart rate 46, blood pressure 142/66, respirations 18, saturation 98%. HEAD AND NECK: Normal. No JVD. No thyromegaly. CHEST: Clear. Good air entry. CARDIAC: First sound and second sound normal. ABDOMEN: Soft and nontender. EXTREMITIES: No edema. Right foot, there is a metatarsal bone over the fifth toe, small toe partially amputated and removed. LABORATORY DATA: Sed rate 41. Pathology is still pending. IMPRESSION: 1. Osteomyelitis, status post removal of the fifth metatarsal bone completely. The patient will continue IV Teflaro and will follow up on the report for the pathology on osteomyelitis if there is a free margin or not. 2. Coronary artery disease, stable. No chest pain, continue current therapy. Bradycardia is symptomatic. We will consult cardiology to see the patient, Dr. Leif Oleary, and seems stable. Planning is to taper the beta babita because of his persistent rc and will discontinue Lopressor as per the processor helper. 3. Hypertension, stable. 4. Diabetes type 2, good control. Hemoglobin A1c is in the 5 to 6 range, seems doing very well. 5. Chronic back pain, chronic osteoarthritis. Continue methadone that has been chronically on it. 6. Chronic anxiety. The patient is getting Klonopin. The patient also was seen by psychiatric evaluations and will follow his recommendations. Tate Villa MD
--- NOTE | 2017-04-07 15:29 | PN ---
CARDIOLOGY FOLLOWUP DATE: 04/07/2017 SUBJECTIVE: The patient is ambulating in the room without symptoms. PHYSICAL EXAMINATION: VITAL SIGNS: Blood pressure is 142/66, heart rate is in the 60s. NECK: Negative JVD. LUNGS: Without rales. HEART: S1, S2. EXTREMITIES: The lower extremity is still bandaged status post surgery. Laboratories are pending. IMPRESSION: 1. Sinus bradycardia. We will monitor his heart rate since we have discontinued his beta-blockers. 2. Stable angina. 3. Coronary artery disease. 4. History of coronary bypass surgery. 5. Severe chronic obstructive pulmonary disease. 6. Peripheral vascular disease. Given these findings, the patient is doing well both in terms of recovery from his surgery as well as physical therapy in the TCU. Leif Oleary MD
--- NOTE | 2017-04-07 15:38 | PN ---
SUBJECTIVE: The patient seen in the transitional care, 315, early this morning. No fevers, no chills, no nausea. PHYSICAL EXAMINATION: VITAL SIGNS: Temperature is 98, blood pressure is 106/50, respiratory rate of 18, heart rate of 80. HEENT: Unremarkable. NECK: Supple. LUNGS: Decreased breath sounds. HEART: Normal S1 and S2. ABDOMEN: Soft and nontender. LABORATORY DATA: Reveals the patient had a white count of 6.4 and sed rate of 41, hemoglobin of 10. Chemistries reveals the creatinine is 1.2, LFTs are elevated. ASSESSMENT AND PLAN: This is a 67-year-old male with a right foot infection and ulcer with a fifth metatarsal amputation, previous osteomyelitis, probable new onset of osteomyelitis status post partial amputation of fifth ray. Postprocedure day #9 with a skin infection in site of previous laminectomy and hardware placement, history of methicillin-resistant Staphylococcus aureus bacteremia, history of diskitis and osteomyelitis of vertebral bone, status post decompression laminectomy, cholelithiasis, and cholecystectomy. REVIEW OF THE PATHOLOGY: Reveals the patient has acute osteomyelitis, will need prolonged antibiotic therapy, weekly CBC, SMA-18, sed rate, C-reactive protein. There is Corynebacterium from one bone culture, no sensitivity is available and has light growth Corynebacterium from another culture of the superficial culture, moderate growth, also no sensitivity is available. There is also Serratia marcescens, Enterobacter aerogenes, and Corynebacterium. We had Serratia sensitive to Zosyn, piperacillin and tazobactam, and Enterobacter aerogenes also was sensitive, and the options for Corynebacterium, possibility of contamination. Corynebacterium species is not specified. Ideally, Corynebacterium requires vancomycin, if that would not, alternative is daptomycin. Linezolid is a possibility and an insulin resistance is also possible. We will continue on the Teflaro at this time, may require Zyvox and Zosyn if Teflaro is not an option. The patient is also on methadone. We will follow with you. Roel English MD [facility] # [id number]
--- NOTE | 2017-04-07 18:44 | CON ---
DATE: This physician underwriter is covering for Dr. Coulter. Dr. Coulter contacted this physician underwriter, asked this patient be seen by this physician underwriter. HISTORY OF PRESENT ILLNESS: The patient was seen today and examined shortly. The patient is a 67-year-old male with multiple medical issues including diabetes, hypertension, history of osteomyelitis, previous right foot amputation. Psych consult was called for evaluation of change in mental status which took place 2 days ago over Wednesday. The patient was seen and examined today. The patient presented to be alert and oriented, pleasant, cooperative. The patient said that as per staff, he was very confused, wanted to go home. The patient does not remember this episode. Reported that he feels much better now and he denied hearing voices, denied seeing things, denied paranoid ideations. The patient also denied being depressed. Denied thoughts of harming himself or others. The patient's 2 years ago. At times, he could have sad feelings which are expected but at the same time, the patient is in a relationship. The patient has a girlfriend now. The patient denied using any drugs. Denied drinking alcohol. PAST PSYCHIATRIC HISTORY: The patient denied. This physician underwriter knows this patient from the previous admission on the medical site and this physician underwriter saw the patient once for capacity to make decision about discharge and it was 2 years ago. The patient does not have history of being admitted to the psychiatric inpatient and the patient denied history of suicidal attempts in the past. This physician underwriter reviewed the vital signs. Vital signs seems to be stable. Temperature 97.3, pulse is 49, blood pressure 106/56, respiration 80 and oxygen saturation is 97. MEDICATIONS: Reviewed. Tylenol, aspirin, Lipitor, Klonopin 1 mg 12 q. 12 hours schedule, Lovenox, Pepcid, Glucophage, methadone, Zofran. LABORATORY DATA: Reviewed. Most recent was from the second. MENTAL STATUS EXAMINATION: The patient presented to be alert and oriented, pleasant, cooperative. The patient does not know the name of the hospital. The patient knows the date and the circumstances of his admission and why this physician underwriter got involved into the patient. The patient had good eye contact, will relate to this physician underwriter. Speech was normal rate, tone, quality and quantity. Mood described as not depressed, I feel much better. Affect was constricted but reactive. Mood congruent. Thought process was coherent and goal directed. Thought content, the patient denied visual, auditory or tactile hallucinations. Denied paranoid ideation. The patient does not present to be psychotic. Collateral information was obtained from the nursing staff. The patient does not have history of aggression. The patient takes medication as prescribed and participated in treatment plan. IMPRESSION: Most likely the patient had episode of delirium, which could be related to infection. The patient had surgery prior. Besides that, the patient has multiple medical issues. The patient's 2 years ago. The patient denied being depressed or denied thoughts of killing himself. PLAN: Continue current management. Continue current medications. Delirium is much better. For the past 48 hours, noticed the patient does not have any psychotic symptoms or inappropriate behavior. This physician underwriter would recommend to continue everything as it is. This physician underwriter will sign off. Should you have any questions, give me a call back. Thank you very much for letting me participate in the care of your patient. Adela Tubbs MD
[2017-04-08] MEDS: Enoxaparin 40 mg Syringe SC SCH (05:33)
[2017-04-08] MEDS: Ceftaroline 600 MG in Sodium Chloride 0.9% 100 ML IVPB SCH (05:33)
[2017-04-08 06:24] VITALS: RESP 18
[2017-04-08] MEDS: Multivitamin With Minerals Tab PO SCH (08:20)
--- NOTE | 2017-04-08 09:52 | CP.PCM.PN ---
<Barak Allen - Last Filed: 04/08/17 09:47> Subjective - Date & Time of Evaluation Date of Evaluation: 04/08/17 Time of Evaluation: 09:48 - Subjective Subjective: Podiatry Progress Note - Dr. Fry 67 year old male patient PMHx DM, HTN, hx of osteomyelitis, previous right foot amputation seen at bedside POD#10 right foot partial 5th ray amputation (DOS: ). Patient is seen resting comfortable out of bed, sitting in a chair, in NAD and AAOx3. Patient states that he is doing well. He reports no pain to right foot surgical site. Patient denies any acute events overnight. Patient denies N/V/F/D/C/SOB/calf pain. Offers no other pedal complaints at this time. Objective - Vital Signs/Intake and Output Vital Signs (last 24 hours): Temp Pulse Resp BP Pulse Ox 97.6 F 44 L 18 103/37 L 98 04/08/17 06:00 04/08/17 06:00 04/08/17 06:00 04/08/17 06:00 04/08/17 06:00 Intake and Output: 04/08/17 04/08/17 06:59 18:59 Intake Total 660 Balance 660 - Medications Medications: Current Medications Acetaminophen (Tylenol 325mg Tab) 650 mg PO Q6H PRN; Protocol PRN Reason: Pain, Mild (1-3) Aspirin (Ecotrin) 81 mg PO 0800 [facility] Last Admin: 04/08/17 09:36 Dose: 81 mg Atorvastatin Calcium (Lipitor) 40 mg PO DIN [facility] PRN Reason: Protocol Last Admin: 04/07/17 17:27 Dose: 40 mg Clonazepam (Klonopin) 1 mg PO Q12H [facility] PRN Reason: Protocol Last Admin: 04/08/17 08:10 Dose: 1 mg Enoxaparin Sodium (Lovenox) 40 mg SC 0630 [facility] PRN Reason: Protocol Last Admin: 04/08/17 05:33 Dose: 40 mg Famotidine (Pepcid) 40 mg PO HS [facility] PRN Reason: Protocol Last Admin: 04/07/17 21:25 Dose: 40 mg Ceftaroline Fosamil 600 mg/ (Sodium Chloride) 100 mls @ 100 mls/hr IVPB 0600, 1800 [facility] PRN Reason: Protocol Stop: 04/09/17 23:59 Last Admin: 04/08/17 05:33 Dose: 100 mls/hr Metformin HCl (Glucophage) 500 mg PO 0800 [facility] PRN Reason: Protocol Last Admin: 04/08/17 08:10 Dose: 500 mg Methadone HCl (Methadone) 40 mg PO 0800 [facility] Last Admin: 04/08/17 08:10 Dose: 40 mg Methadone HCl (Methadone) 30 mg PO 1900 [facility] Last Admin: 04/07/17 18:45 Dose: 30 mg Multivitamins/Minerals (Therapeutic-M Tab) 1 tab PO 0800 [facility] PRN Reason: Protocol Last Admin: 04/08/17 08:20 Dose: 1 tab Ondansetron HCl (Zofran Inj) 4 mg IVP ONCE PRN; Protocol PRN Reason: Nausea/Vomiting - Labs Labs: 04/05/17 17:10 04/05/17 17:10 - Constitutional Appears: Well, Non-toxic, No Acute Distress - Extremities Exam Additional comments: RLE focused physical exam: VASC: DP and PT pulses palpable. CFT WNL. TG warm to warm. No edema noted. NEURO: Protective sensation diminished. DERM: Ulceration measuring approximately 1.4 x 1.2 cm noted to plantar aspect of 5th met head with a granular base and hyperkeratotic rim with very mild maceration noted to the rim. Mild sangious drainaged noted. Surgical incision to dorsal aspect of 5th metatarsal appears well-coapted with sutures intact and no wound dehiscence noted. No maceration noted to plantar forefoot and at distal aspect of incision. No erythema, no purulence or no odor noted. ORTHO: Mild tenderness to palpation plantar ulceration - Neurological Exam Neurological Exam: Alert, Awake, Oriented x3 - Psychiatric Exam Psychiatric exam: Normal Affect, Normal Mood Assessment and Plan - Assessment and Plan (Free Text) Assessment: 67 year old male POD#10 right foot partial 5th ray amputation Plan: Patient seen and evaluated with attending, Dr. Fry Chart, vitals, labs reviewed = afebrile, absent leukocytosis Right foot cleanse with saline solution and betadine, maxsorb packed into ulceration site, and dressed with adaptic to surgical incision, DSD, ABD, and kerlix C/w local wound care qd Continue Darco shoe to right foot at all times when ambulating. Per ID, continue Teflaro OR right foot cx: corynebacterium Awaiting pathology report Patient is stable per podiatry Podiatry will continue to follow while in house Will followup in wound care clinic upon discharge <Kishan Fry - Last Filed: 04/11/17 11:24> Objective - Vital Signs/Intake and Output Vital Signs (last 24 hours): Temp Pulse Resp BP Pulse Ox 98.2 F 58 L 18 114/52 L 99 04/09/17 16:15 04/09/17 16:15 04/09/17 16:15 04/09/17 16:15 04/09/17 16:15 - Labs Labs: 04/05/17 17:10 04/05/17 17:10 Attending/Attestation - Attestation I have personally seen and examined this patient.: Yes I have fully participated in the care of the patient.: Yes I have reviewed all pertinent clinical information, including history, physical exam and plan: Yes
--- NOTE | 2017-04-08 10:31 | PN ---
DATE: 04/07/2017 SUBJECTIVE: The patient is sitting comfortable, no distress, and he is in the bed. He has no chest pain and no short of breath. Seen by ID consult, foot surgeon, and corporate legal assistant. The patient has no new complaint. PHYSICAL EXAMINATION: VITAL SIGNS: Temperature of 97.3, heart rate of 49, blood pressure of 106/56, respirations of 18, and oxygen saturation of 97%. HEAD AND NECK: Normal. No JVD. No thyromegaly. CHEST: Clear. Good air entry. CARDIAC: First sound and second sound normal. ABDOMEN: Soft and nontender. EXTREMITIES: No edema. Right foot recent amputation of the fifth metatarsal, seems stable. LABORATORY DATA: Sedimentation rate is 41. We are still waiting for pathology report. His C-reactive protein is 1.51. IMPRESSION AND PLAN: 1. Status post surgical partial amputation of the small toes, metatarsal bone removal, waiting for pathology for surgical free margin of osteomyelitis, hopefully, we will get the reports sooner. Continue local wound care. Continue intravenous Teflaro. Continue follow up with Podiatry consult. 2. Coronary artery disease, hypertension, and bradycardia. The patient seems stable. Continue Lipitor. Continue baby aspirin for now. 3. Chronic back pain and anxiety. Continue Klonopin and methadone. 4. Gait disorder. Continue physical therapy. The patient is wearing special shoes for amputated metatarsal to promote healing. PLAN: At this time, we will continue current therapy. The patient is seen by psychiatrist. He is stable any mood or any psychotic features, continue current therapy and we will follow up clinically. Tate Villa MD
[2017-04-08] MEDS: Piperacillin/Tazobact 3.375 gm 100 ML IVPB SCH ×2 (15:06→18:07)
--- NOTE | 2017-04-08 16:54 | PN ---
DATE: 04/08/2017 LOCATION: The patient is in room 315. SUBJECTIVE: He is seen earlier this morning. No fevers and no chills. Doing well. PHYSICAL EXAMINATION: VITAL SIGNS: Temperature is 98, blood pressure is 103/37 and respiratory rate of 18. HEENT: Unremarkable. NECK: Supple. LUNGS: Decreased breath sounds. HEART: Normal S1 and S2. ABDOMEN: Soft. LABORATORY DATA: Reveals a white count of 6.4 and sed rate is 41. Chemistry reveals a BUN of 28 and creatinine of 1.2. ASSESSMENT AND PLAN: A 67-year-old male with acute osteomyelitis and pathology report with right foot infection and ulcer and a fifth metatarsal amputation and a previous osteomyelitis, now with osteomyelitis and the pathology shows that there is acute osteomyelitis postprocedure day #10, status post amputation of the fifth ray, history of laminectomy and hardware placement, history of methicillin-resistant Staphylococcus bacteremia, diskitis, osteomyelitis of vertebral bone and laminectomy, history of cholelithiasis, cholecystectomy with Corynebacterium in more than 2 cultures and Serratia and Enterobacter and earlier culture with the Corynebacterium. We will switch to Zosyn and Zyvox. Recommend CBC, SMA-18, sed rate, C-reactive protein and weekly for a total of 4 to 6 weeks of antibiotics. Case discussed with management and we will follow closely with you. Roel English MD
[2017-04-09] MEDS: Piperacillin/Tazobact 3.375 gm 100 ML IVPB SCH ×4 (00:03→17:21)
[2017-04-09] MEDS: Enoxaparin 40 mg Syringe SC SCH (05:33)
[2017-04-09] MEDS: Multivitamin With Minerals Tab PO SCH (07:59)
--- NOTE | 2017-04-09 10:34 | CP.PCM.PN ---
<Barak Allen - Last Filed: 04/09/17 10:31> Subjective - Date & Time of Evaluation Date of Evaluation: 04/09/17 Time of Evaluation: 10:31 - Subjective Subjective: Podiatry Progress Note - Dr. Fry 67 year old male patient PMHx DM, HTN, hx of osteomyelitis, previous right foot amputation seen at bedside POD#11 right foot partial 5th ray amputation (DOS: ). Patient is seen resting comfortably in bed, sitting in a chair, in NAD and AAOx3. Patient states that he could not sleep last night. He is feeling a bit restless today. He still reports no pain to right foot surgical site. Patient denies any acute events overnight. Patient denies N/V/F/D/C/SOB/calf pain. Offers no other pedal complaints at this time. Objective - Vital Signs/Intake and Output Vital Signs (last 24 hours): Temp Pulse Resp BP Pulse Ox 98.3 F 52 L 18 115/59 L 96 04/09/17 10:15 04/09/17 10:15 04/09/17 10:15 04/09/17 10:15 04/09/17 10:15 Intake and Output: 04/09/17 04/09/17 06:59 18:59 Intake Total 620 Balance 620 - Medications Medications: Current Medications Acetaminophen (Tylenol 325mg Tab) 650 mg PO Q6H PRN; Protocol PRN Reason: Pain, Mild (1-3) Aspirin (Ecotrin) 81 mg PO 0800 [facility] Last Admin: 04/09/17 07:58 Dose: 81 mg Atorvastatin Calcium (Lipitor) 40 mg PO DIN [facility] PRN Reason: Protocol Last Admin: 04/07/17 17:27 Dose: 40 mg Clonazepam (Klonopin) 1 mg PO Q12H [facility] PRN Reason: Protocol Last Admin: 04/09/17 08:02 Dose: 1 mg Enoxaparin Sodium (Lovenox) 40 mg SC 0630 [facility] PRN Reason: Protocol Last Admin: 04/09/17 05:33 Dose: 40 mg Famotidine (Pepcid) 40 mg PO HS [facility] PRN Reason: Protocol Last Admin: 04/08/17 21:33 Dose: 40 mg Piperacillin Sod/Tazobactam Sod (Zosyn 3.375 In Ns 100ml) 100 mls @ 200 mls/hr IVPB Q6 [facility] PRN Reason: Protocol Stop: 05/06/17 14:12 Last Admin: 04/09/17 05:33 Dose: 200 mls/hr Linezolid (Zyvox) 600 mg PO BID [facility] PRN Reason: Protocol Stop: 05/06/17 14:16 Last Admin: 04/08/17 18:08 Dose: 600 mg Metformin HCl (Glucophage) 500 mg PO 0800 [facility] PRN Reason: Protocol Last Admin: 04/09/17 07:58 Dose: 500 mg Methadone HCl (Methadone) 40 mg PO 0800 [facility] Last Admin: 04/09/17 08:02 Dose: 40 mg Methadone HCl (Methadone) 30 mg PO 1900 [facility] Last Admin: 04/08/17 18:51 Dose: 30 mg Multivitamins/Minerals (Therapeutic-M Tab) 1 tab PO 0800 [facility] PRN Reason: Protocol Last Admin: 04/09/17 07:59 Dose: 1 tab Ondansetron HCl (Zofran Inj) 4 mg IVP ONCE PRN; Protocol PRN Reason: Nausea/Vomiting - Labs Labs: 04/05/17 17:10 04/05/17 17:10 - Constitutional Appears: Well, Non-toxic, No Acute Distress - Extremities Exam Additional comments: RLE focused physical exam: VASC: DP and PT pulses palpable. CFT WNL. TG warm to warm. No edema noted. NEURO: Protective sensation diminished. DERM: Ulceration measuring approximately 1 x .5 cm noted to plantar aspect of 5th met head with a granular base and hyperkeratotic rim with very mild maceration noted. Very mild sangious drainaged noted. Surgical incision to dorsal aspect of 5th metatarsal appears well-coapted with sutures intact and no wound dehiscence noted. No maceration noted to surgical incision. No erythema, no purulence or no odor noted. ORTHO No tenderness to palpation plantar ulceration - Neurological Exam Neurological Exam: Alert, Awake, Oriented x3 - Psychiatric Exam Psychiatric exam: Normal Affect, Normal Mood Assessment and Plan - Assessment and Plan (Free Text) Assessment: 67 year old male POD#11 right foot partial 5th ray amputation Plan: Patient seen and evaluated with attending, Dr. Fry Chart, vitals, labs reviewed = afebrile, absent leukocytosis Right foot cleanse with saline solution, maxsorb packed into ulceration site, and dressed with adaptic to surgical incision, DSD, ABD, and kerlix C/w local wound care qd Continue Darco shoe to right foot at all times when ambulating. Per ID, continue Teflaro OR right foot cx: corynebacterium Awaiting pathology report Patient is stable per podiatry Podiatry will continue to follow while in house Will followup in wound care clinic upon discharge <Kishan Fry - Last Filed: 04/11/17 11:25> Objective - Vital Signs/Intake and Output Vital Signs (last 24 hours): Temp Pulse Resp BP Pulse Ox 98.2 F 58 L 18 114/52 L 99 04/09/17 16:15 04/09/17 16:15 04/09/17 16:15 04/09/17 16:15 04/09/17 16:15 - Labs Labs: 04/05/17 17:10 04/05/17 17:10 Attending/Attestation - Attestation I have personally seen and examined this patient.: Yes I have fully participated in the care of the patient.: Yes I have reviewed all pertinent clinical information, including history, physical exam and plan: Yes
--- NOTE | 2017-04-09 13:19 | PN ---
DATE: 04/09/2017 SUBJECTIVE: The patient is working in the gym without shortness of breath, without chest pain. OBJECTIVE: VITAL SIGNS: Blood pressure 115/60, heart rate in the 50s. NECK: Negative JVD. LUNGS: Without rales. HEART: S1, S2. EXTREMITIES: Without edema. LABORATORY DATA: Hemoglobin and chemistries were not measured. IMPRESSION: 1. Improved heart rate of beta-blockers. 2. Stable angina. 3. Coronary artery disease. 4. History of coronary bypass surgery. 5. Chronic obstructive pulmonary disease. 6. Peripheral vascular disease. Given these findings, the patient is stable from a cardiac perspective. He is able to go home today. We keep him off the beta blockers. Leif Oleary MD
[2017-04-09 16:15] VITALS: BP 114/52; PULSE 58; TEMP 98.2; O2SAT 99
--- NOTE | 2017-04-09 17:33 | CP.PCM.PN ---
Subjective - Date & Time of Evaluation Date of Evaluation: 04/09/17 Time of Evaluation: 11:30 - Subjective Subjective: Comfortable, not in distress, doing his physical therapy well. No fevers. Objective - Vital Signs/Intake and Output Vital Signs (last 24 hours): Temp Pulse Resp BP Pulse Ox 97.6 F 42 L 18 108/57 L 99 04/08/17 17:21 04/08/17 17:21 04/08/17 17:21 04/08/17 17:21 04/08/17 17:21 Intake and Output: 04/08/17 04/09/17 18:59 06:59 Intake Total 620 Balance 620 - Medications Medications: Current Medications Acetaminophen (Tylenol 325mg Tab) 650 mg PO Q6H PRN; Protocol PRN Reason: Pain, Mild (1-3) Aspirin (Ecotrin) 81 mg PO 0800 [facility] Last Admin: 04/08/17 09:36 Dose: 81 mg Atorvastatin Calcium (Lipitor) 40 mg PO DIN [facility] PRN Reason: Protocol Last Admin: 04/07/17 17:27 Dose: 40 mg Clonazepam (Klonopin) 1 mg PO Q12H [facility] PRN Reason: Protocol Last Admin: 04/08/17 21:00 Dose: 1 mg Enoxaparin Sodium (Lovenox) 40 mg SC 0630 [facility] PRN Reason: Protocol Last Admin: 04/09/17 05:33 Dose: 40 mg Famotidine (Pepcid) 40 mg PO HS [facility] PRN Reason: Protocol Last Admin: 04/08/17 21:33 Dose: 40 mg Piperacillin Sod/Tazobactam Sod (Zosyn 3.375 In Ns 100ml) 100 mls @ 200 mls/hr IVPB Q6 [facility] PRN Reason: Protocol Stop: 05/06/17 14:12 Last Admin: 04/09/17 05:33 Dose: 200 mls/hr Linezolid (Zyvox) 600 mg PO BID [facility] PRN Reason: Protocol Stop: 05/06/17 14:16 Last Admin: 04/08/17 18:08 Dose: 600 mg Metformin HCl (Glucophage) 500 mg PO 0800 [facility] PRN Reason: Protocol Last Admin: 04/08/17 08:10 Dose: 500 mg Methadone HCl (Methadone) 40 mg PO 0800 [facility] Last Admin: 04/08/17 08:10 Dose: 40 mg Methadone HCl (Methadone) 30 mg PO 1900 [facility] Last Admin: 04/08/17 18:51 Dose: 30 mg Multivitamins/Minerals (Therapeutic-M Tab) 1 tab PO 0800 [facility] PRN Reason: Protocol Last Admin: 04/08/17 08:20 Dose: 1 tab Ondansetron HCl (Zofran Inj) 4 mg IVP ONCE PRN; Protocol PRN Reason: Nausea/Vomiting - Labs Labs: 04/05/17 17:10 04/05/17 17:10 - Constitutional Appears: Non-toxic, No Acute Distress - Head Exam Head Exam: NORMAL INSPECTION - ENT Exam ENT Exam: Mucous Membranes Moist - Neck Exam Neck Exam: absent: Meningismus - Respiratory Exam Respiratory Exam: Decreased Breath Sounds - Cardiovascular Exam Cardiovascular Exam: +S1, +S2 - GI/Abdominal Exam GI & Abdominal Exam: Soft. absent: Tenderness Assessment and Plan - Assessment and Plan (Free Text) Plan: Assessment right foot infected ulcer at site of 5th metatarsal amputation for previous osteomyelitis, with probable new onset osteomyelitis S/P partial amputation of the 5th ray POD #11 history of skin and skin structure infection at the site of previous laminectomy and hardware placement history of HCAP history MRSA bacteremia with discitis and osteomyelitis S/P decompression laminectomy history of Cholelithiasis S/P cholecystectomy coronary artery disease hypertension diabetes mellitus dementia history of right foot osteomyelitis and amputation of right second toe CAD S/P PCI with cardiac stents placed and coronary bypass graft Plan will continue Zyvox and Zosyn; OR pathology shows acute osteomyelitis but no comment on bone margins - OR cx showed Corynebacterium which may be a contaminant; blood cx are negative; patient should get 4-6 weeks of antibiotics with weekly ESR, CRP, CBC, CMP will continue to monitor clinically
--- NOTE | 2017-04-12 02:14 | PN ---
DATE: 04/08/2017 SUBJECTIVE: The patient is stable, comfortable, no distress. Walking slowly. He has no chest pain. No shortness of breath. Waiting for the pathology report. PHYSICAL EXAMINATION VITAL SIGNS: Temperature 97.6, heart rate 42, blood pressure 108/57, respirations 18, and saturation 99%. HEAD AND NECK: Normal. No JVD. No thyromegaly. CHEST: Clear, good air entry. CARDIAC: First sound and second sound normal. ABDOMEN: Soft, nontender. EXTREMITIES: No edema. Right foot, there is around it where the 5th metatarsal bone area removed. NEUROLOGIC: Normal. LABORATORY DATA: His C-reactive protein is 1.51. IMPRESSION AND PLAN: 1. Osteomyelitis, right foot. Continue IV Teflaro. Pathology report suggestive of osteomyelitis. We will discuss surgery with the other independent consultant and ID. We will continue Teflaro IV and local wound care for now. 2. Coronary artery disease. 3. Hypertension. 4. Hypercholesterolemia. 5. Diabetes type 2. 6. Continue current management. 7. Continue insulin coverage, preventive measures. 8. Continue Lovenox subcu for deep venous thrombosis prophylaxis and Protonix p.o. for gastrointestinal prophylaxis. 9. Abnormal liver function tests. AST and ALT most likely medication related. We will monitor it at this time. Continue current therapy and we will followup as an outpatient. 10. The patient has chronic back pain, also chronic generalized anxiety. We will continue methadone. Continue Klonopin and we will follow up clinically. Tate Villa MD
--- NOTE | 2017-04-12 13:43 | DS ---
HISTORY OF PRESENT ILLNESS: A 67-year-old male admitted with osteomyelitis of his right foot fifth toe. The patient had metatarsal bone removal. Pathology positive for osteomyelitis, so we planned to be discharged to [facility] for consideration of IV antibiotics as recommended by ID consult. The patient was seen by multiple consults while in the TCU and seen by ID consult, Dr. Lucas, and at this time also the patient was seen by foot doctor, Dr. Rich and Brooke, who was taking care of the surgery and also followup on the wound care. He seems stable, in no distress, and his physical exam is not changed from previous date. PHYSICAL EXAMINATION: VITAL SIGNS: Stable. Temperature is 98.3, heart rate 58, blood pressure 115/52, respirations 18, and saturation 99%. HEAD AND NECK: Normal. No JVD. No thyromegaly. CHEST: Clear. Good air entry. CARDIAC: First sound and second sound normal. ABDOMEN: Soft and nontender. EXTREMITIES: No edema. Right foot gauze around the fifth toe and the whole foot. NEUROLOGIC: Normal. The patient is walking with his special shoes and has to be careful, but he is able to ambulate with no weakness. DISCHARGE DIAGNOSES: 1. Right fifth metatarsal osteomyelitis. We will restart the patient on IV antibiotics, which include Zosyn and Zyvox. We will continue that for probably another 2 to 3 weeks. We will discuss this with ID consult. 2. Chronic back pain. Continue methadone. 3. Chronic anxiety disorder. Currently on Klonopin. We will continue that. 4. Osteomyelitis, foot. Continue IV antibiotics for four to six weeks of antibiotics as recommended by Dr. English in his notes. 5. Coronary artery disease, diabetes, hypertension, and hypercholesterolemia. We will continue current medications. 6. Continue local wound care. We will transfer the patient to [facility]. Probably, the patient will need a PICC line for continuation of IV therapy. Tate Villa MD
== END 2017-04-09 21:59 | DRG 638 ==
LOC: TRCU 17:34
PROVIDERS: ADMIT Internal Medicine; ATTEND Internal Medicine
PROC: F07Z9FZ Gait Training/Functional Ambulation Treatment using Assistive, Adaptive, Supportive or Protective Equipment (ICD-10-PCS; principal; 2017-04-01)
PROC: F08Z4FZ Home Management Treatment using Assistive, Adaptive, Supportive or Protective Equipment (ICD-10-PCS; 2017-04-01)
DX: E11.69 Type 2 diabetes mellitus with other specified complication (principal); M86.171 Other acute osteomyelitis, right ankle and foot; R26.89 Other abnormalities of gait and mobility; Z79.2 Long term (current) use of antibiotics; Z89.421 Acquired absence of other right toe(s); E11.51 Type 2 diabetes mellitus with diabetic peripheral angiopathy without gangrene; E11.621 Type 2 diabetes mellitus with foot ulcer; F03.90 Unspecified dementia, unspecified severity, without behavioral disturbance, psychotic disturbance, mood disturbance, and anxiety; L03.115 Cellulitis of right lower limb; E87.5 Hyperkalemia; G89.29 Other chronic pain; E78.00 Pure hypercholesterolemia, unspecified; M54.9 Dorsalgia, unspecified; I10 Essential (primary) hypertension; F41.1 Generalized anxiety disorder; J44.9 Chronic obstructive pulmonary disease, unspecified; I25.118 Atherosclerotic heart disease of native coronary artery with other forms of angina pectoris; L97.519 Non-pressure chronic ulcer of other part of right foot with unspecified severity; R00.1 Bradycardia, unspecified; Z86.14 Personal history of Methicillin resistant Staphylococcus aureus infection; Z87.01 Personal history of pneumonia (recurrent); Z95.1 Presence of aortocoronary bypass graft; Z95.5 Presence of coronary angioplasty implant and graft; Z90.49 Acquired absence of other specified parts of digestive tract; Z87.891 Personal history of nicotine dependence

== ENCOUNTER 2017-04-13 05:31 | Inpatient (IN) | payer MEDICARE, OTHER ==
[2017-04-13 05:46] VITALS: BMI 18.6
--- NOTE | 2017-04-13 05:52 | ED PDOC ---
Arrival/HPI - General Time Seen by Provider: 04/13/17 05:36 Historian: Patient - History of Present Illness Narrative History of Present Illness (Text): 04/13/17 05:47 Doug Cote is a 67 year old male, whose past medical history includes diabetes, hypertension, CAD, chronic back pain, anxiety, hypercholesterolemia and current foot infections on osteomyelitis on IV Zosyn and Zyvox, presents to the emergency department from residential for altered mental status. According to residential, patient was confused and combative toward staff. Upon arrival in the emergency department patient is alert, oriented X1 and non-combative but confused. Denies any fever, chills, headache, dizziness, nausea, vomiting, diarrhea, urinary symptoms, or any other complaints at this time. PMD: Dr. Villa Severity Level: Mild Activities at Onset: Light Past Medical History - Provider Review Nursing Documentation Reviewed: Yes - Infectious Disease Hx of Infectious Diseases: None - Tetanus Immunization Tetanus Immunization: Unknown - Cardiac Hx Cardiac Disorders: Yes Hx Hypertension: Yes - Pulmonary Hx Respiratory Disorders: Yes Hx Pneumonia: Yes - Neurological Hx Transient Ischemic Attacks (TIA): No - HEENT Hx HEENT Disorder: No - Renal Hx Renal Disorder: No - Endocrine/Metabolic Hx Diabetes Mellitus Type 2: Yes - Hematological/Oncological Hx Cancer: No - Integumentary Hx Dermatological Disorder: Yes (RIGHT 2ND TOE AMPUTATED) - Musculoskeletal/Rheumatological Hx Falls: No - Gastrointestinal Hx Gastrointestinal Disorders: No - Genitourinary/Gynecological Hx Genitourinary Disorders: No Hx Reproductive Disorders: No - Psychiatric Hx Psychophysiologic Disorder: Yes Hx Depression: Yes (pt reports peroids of sadness) Hx Substance Use: Yes - Surgical History Hx Mastectomy: No - Anesthesia Hx Anesthesia Reactions: No Hx Malignant Hyperthermia: No - Suicidal Assessment Feels Threatened In Home Enviroment: No Family/Social History - Physician Review Nursing Documentation Reviewed: Yes Family/Social History: No Known Family HX Smoking Status: Former Smoker Hx Alcohol Use: No Hx Substance Use: Yes Allergies/Home Meds Allergies/Adverse Reactions: Allergies No Known Allergies Allergy (Verified 04/13/17 05:39) Home Medications: Home Meds Medication Instructions Recorded Confirmed Aspirin [Ecotrin] 81 mg PO DAILY 04/13/17 04/13/17 Insulin Regular, Human [Novolin R] See Protocol SC ACHS 04/13/17 04/13/17 Linezolid [Zyvox] 600 mg PO BID 04/13/17 04/13/17 Ondansetron HCl [Zofran] 4 mg PO Q4 PRN 04/13/17 04/13/17 Piperacill/Tazo 3.375gm in Dex 3.375 gm IVPB Q6 04/13/17 04/13/17 [Zosyn 3.375 Gm IV Premix] clonazePAM [Klonopin] 1 mg PO DAILY 04/13/17 04/13/17 clonazePAM [clonAZEPAM] 1 mg PO BID PRN 04/13/17 04/13/17 Review of Systems - Physician Review All systems were reviewed & negative as marked: Yes - Review of Systems Systems not reviewed;Unavailable: Altered Mental Status (limits ROS reliability) Respiratory: Normal. absent: SOB, Cough, Sputum Cardiovascular: Normal. absent: Chest Pain, Palpitations Gastrointestinal: absent: Abdominal Pain, Diarrhea, Nausea Musculoskeletal: Other (infection to right foot ) Neurological: absent: Headache, Dizziness Physical Exam Vital Signs Reviewed: Yes Vital Signs Temp Pulse Resp BP Pulse Ox 04/13/17 05:44 98 F 75 18 159/88 H 99 Temperature: Afebrile Blood Pressure: Hypertensive Pulse: Regular Respiratory Rate: Normal Appearance: Positive for: Non-Toxic Pain Distress: None Mental Status: Positive for: Confused, other (Alert Oriented X1). No: Agitated , Lethargic - Systems Exam Head: Present: Atraumatic, Normocephalic Pupils: Present: PERRL Conjunctiva: Present: Normal Mouth: Present: Moist Mucous Membranes Pharnyx: Present: Normal. No: ERYTHEMA, EXUDATE Neck: Present: Normal Range of Motion. No: Meningeal Signs Respiratory/Chest: Present: Clear to Auscultation, Good Air Exchange. No: Respiratory Distress, Accessory Muscle Use Cardiovascular: Present: Regular Rate and Rhythm, Normal S1, S2. No: Murmurs Abdomen: Present: Normal Bowel Sounds. No: Tenderness, Distention, Peritoneal Signs Upper Extremity: Present: Other (PICC line LUE). No: Cyanosis, Edema Lower Extremity: Present: NORMAL PULSES, Other (right 2nd toe partial amputation with suture in place. ). No: Edema, CALF TENDERNESS, Cyanosis Neurological: Present: GCS=15, CN II-XII Intact, Speech Normal Skin: Present: Warm, Dry, Normal Color. No: Rashes Psychiatric: Present: Alert, Oriented x 3, Normal Insight, Normal Concentration Medical Decision Making ED Course and Treatment: 04/13/17 05:56 Impression: A 67 year old male who presents to the emergency department from residential for altered mental status. Differential Diagnosis included but are not limited to: Infection vs delirium vs electrolyte abnormality vs intracranial process. Plan: -- EKG -- Labs, cardiac enzymes -- Chest X-ray -- Blood culture -- Urine -- Urinalysis -- Reassess and disposition Progress Notes: 04/13/17 07:10 Patient with noted history presenting with alt ms - vitals are unremarkable. Patient with similar presentations in the past. Workup is in progress at this time. Patient will need to be admitted. Results pending; case endorsed to Dr. Jarrett, who will follow results. - Lab Interpretations Lab Results: 04/13/17 06:05 04/13/17 06:05 Lab Results 04/13/17 06:50: Urine Color Yellow, Urine Appearance Sl cloudy, Urine pH 6.0, Ur Specific [place] 1.020, Urine Protein Negative, Urine Glucose (UA) Negative, Urine Ketones Trace H, Urine Blood Large H, Urine Nitrate Negative, Urine Bilirubin Negative, Urine Urobilinogen 0.2, Ur Leukocyte Esterase Negative, Urine RBC 2 - 5, Urine WBC 0 - 2, Ur Epithelial Cells 0 - 2, Calcium Oxalate Crystal Rare 04/13/17 06:05: Sodium 139, Potassium 5.4 H, Chloride 99, Carbon Dioxide 29, Anion Gap 16, BUN 19, Creatinine 0.9, Est GFR ( Amer) > 60, Est GFR (Non- Af Amer) > 60, Random Glucose 120 H, Calcium 9.5, Magnesium 2.0, Total Bilirubin 1.6 H, AST 106 H D, ALT 64 H, Alkaline Phosphatase 103, Lactate Dehydrogenase 693, Total Creatine Kinase 696 H, CK-MB (CK-2) Pending, CK-MB (CK- 2) % Pending, Troponin I 0.01, Total Protein 8.3, Albumin 4.2, Globulin 4.1, Albumin/Globulin Ratio 1.0 L, Lipase 35 04/13/17 06:05: PT 12.0 H, INR 1.11 H, APTT 29.2 04/13/17 06:05: WBC 9.6 D, RBC 4.25, Hgb 11.5 L, Hct 35.7 L, MCV 84.0, MCH 27.1 , MCHC 32.2, RDW 17.1 H, Plt Count 169, MPV 10.1, Gran % 75.4 H, Lymph % (Auto) 18.0 L, Casey % (Auto) 6.3 H, Eos % (Auto) 0.1 L, Baso % (Auto) 0.2, Gran # 7.23 H, Lymph # 1.7, Casey # 0.6, Eos # 0.0, Baso # 0.02 04/13/17 05:43: POC Glucose (mg/dL) 127 H - RAD Interpretation Radiology Orders: 04/13/17 05:47 CHEST PORTABLE [RAD] Stat 04/13/17 06:48 Brain [HEAD W/O CONTRAST] [CT] Stat - Scribe Statement The provider has reviewed the documentation as recorded by the Darianibe Silke Novoa Provider Attestation: Provider Scribe Attestation: All medical record entries made by the Scribe were at my direction and personally dictated by me. I have reviewed the chart and agree that the record accurately reflects my personal performance of the history, physical exam, medical decision making, and the department course for this patient. I have also personally directed, reviewed, and agree with the discharge instructions and disposition. Disposition/Present on Arrival - Present on Arrival Any Indicators Present on Arrival: No History of DVT/PE: No History of Uncontrolled Diabetes: No Urinary Catheter: No History Surgical Site Infection Following: None - Disposition Have Diagnosis and Disposition been Completed?: Yes Diagnosis: Altered mental status Disposition: HOSPITALIZED Disposition Time: 07:10 Patient Plan: Admission Condition: FAIR
[2017-04-13 06:22] LABS: BASO # 0.02 K/mm3 (0.0-2.0); BASO % 0.2 % (0.0-3.0); EOS % 0.1 % (1.5-5.0); GRAN # 7.23 (1.4-6.5); GRAN % 75.4 % (50.0-68.0); HEMATOCRIT 35.7 % (42.0-52.0); LYMPH # 1.7 (1.2-3.4); MEAN CORPUSCULAR HEMOGLOBIN 27.1 pg (25.0-35.0); MEAN CORPUSCULAR HGB CONC 32.2 g/dl (31.0-37.0); MEAN PLATELET VOLUME 10.1 fl (7.0-11.0); MONO # 0.6 (0.1-0.6); MONO % 6.3 % (1.0-6.0); RED CELL DISTRIBUTION WIDTH 17.1 % (11.5-14.5); WHITE BLOOD COUNT 9.6 10^3/ul (4.5-11.0)
[2017-04-13 06:28] LABS: INR 1.11 (0.93-1.08); PARTIAL THROMBOPLASTIN TIME 29.2 Seconds (23.7-30.8)
[2017-04-13 06:35] LABS: ALKALINE PHOSPHATASE 103 U/L (38-126); ALT/SGPT 64 U/L (7-56); AST/SGOT 106 U/L (17-59); BILIRUBIN,TOTAL 1.6 mg/dL (0.2-1.3); BLOOD UREA NITROGEN 19 mg/dL (7-21); CALCIUM 9.5 mg/dL (8.4-10.5); CARBON DIOXIDE 29 mmol/L (21-33); CHLORIDE 99 mmol/L (98-107); GFR AFRICAN-AMERICAN > 60; GLUCOSE,RANDOM 120 mg/dL (70-110); LIPASE 35 U/L (23-300); POTASSIUM 5.4 mmol/L (3.6-5.0); SODIUM 139 mmol/L (132-148); TOTAL PROTEIN 8.3 g/dL (5.8-8.3)
[2017-04-13 06:58] LABS: URINE BILIRUBIN NEGATIVE (NEGATIVE); URINE BLOOD LARGE (NEGATIVE); URINE GLUCOSE (UA) NEGATIVE (NEGATIVE); URINE KETONE TRACE mg/dL (NEGATIVE); URINE LEUKOCYTE ESTERASE NEGATIVE Leu/uL (NEGATIVE); URINE PROTEIN NEGATIVE mg/dL (<30 mg/dL); URINE UROBILINOGEN 0.2 E.U./dL (<1 E.U./dL)
[2017-04-13 06:59] LABS: URINE COLOR YELLOW (YELLOW)
[2017-04-13 07:00] LABS: URINE APPEARANCE SL CLOUDY (CLEAR)
[2017-04-13 07:01] LABS: TROPONIN I 0.01 ng/mL
[2017-04-13 07:06] LABS: URINE CALCIUM OXALATE CRYSTALS RARE /hpf; URINE EPITHELIAL CELLS 0 - 2 /hpf (0-5); URINE WBC 0 - 2 /hpf (0-6)
--- NOTE | 2017-04-13 07:44 | ED PDOC ---
Physical Exam Vital Signs Temp Pulse Resp BP Pulse Ox 04/13/17 09:04 97.9 F 92 H 18 168/86 H 98 04/13/17 05:44 98 F 75 18 159/88 H 99 Medical Decision Making ED Course and Treatment: 04/13/17 07:05 The patient is transferred over to [place] by Dr. Lal. Patient is pending labs and re-evaluation. On my evaluation, patient noted to have ulcer to foot this not tender or purulent or draining. He is currently getting iv antibiotics for history of infection/osteo. Current exam not consistent with sepsis, he is cv stable and afebrile. He is confused on my exam, disoriented and not answering questions appropriately intermittently, although no slurred speech or facial droop or focal weakness noted. No respiratory distress noted. Patient admitted for episodes of confusion, hx of AMS. Neck is supple. No meningeal signs. Patient refused head ct. Serial exams performed in ED, he has had no lethargy, no headache, no focal neuro deficits noted with serial exams. - Lab Interpretations Lab Results: 04/13/17 06:05 04/13/17 06:05 Lab Results 04/13/17 06:50: Urine Color Yellow, Urine Appearance Sl cloudy, Urine pH 6.0, Ur Specific [place] 1.020, Urine Protein Negative, Urine Glucose (UA) Negative, Urine Ketones Trace H, Urine Blood Large H, Urine Nitrate Negative, Urine Bilirubin Negative, Urine Urobilinogen 0.2, Ur Leukocyte Esterase Negative, Urine RBC 2 - 5, Urine WBC 0 - 2, Ur Epithelial Cells 0 - 2, Calcium Oxalate Crystal Rare 04/13/17 06:05: Sodium 139, Potassium 5.4 H, Chloride 99, Carbon Dioxide 29, Anion Gap 16, BUN 19, Creatinine 0.9, Est GFR ( Amer) > 60, Est GFR (Non- Af Amer) > 60, Random Glucose 120 H, Calcium 9.5, Magnesium 2.0, Total Bilirubin 1.6 H, AST 106 H D, ALT 64 H, Alkaline Phosphatase 103, Lactate Dehydrogenase 693, Total Creatine Kinase 696 H, CK-MB (CK-2) 1.6, CK-MB (CK-2) % Cancelled, Troponin I 0.01, Total Protein 8.3, Albumin 4.2, Globulin 4.1, Albumin/Globulin Ratio 1.0 L, Lipase 35 04/13/17 06:05: PT 12.0 H, INR 1.11 H, APTT 29.2 04/13/17 06:05: WBC 9.6 D, RBC 4.25, Hgb 11.5 L, Hct 35.7 L, MCV 84.0, MCH 27.1 , MCHC 32.2, RDW 17.1 H, Plt Count 169, MPV 10.1, Gran % 75.4 H, Lymph % (Auto) 18.0 L, [place] % (Auto) 6.3 H, Eos % (Auto) 0.1 L, Baso % (Auto) 0.2, Gran # 7.23 H, Lymph # 1.7, [place] # 0.6, Eos # 0.0, Baso # 0.02 04/13/17 05:43: POC Glucose (mg/dL) 127 H - RAD Interpretation Radiology Orders: 04/13/17 05:47 CHEST PORTABLE [RAD] Stat - Medication Orders Current Medication Orders: Discontinued Medications Sodium Chloride (Sodium Chloride 0.9%) 500 mls @ 1,000 mls/hr IV .Q30M STA Stop: 04/13/17 08:26 Last Admin: 04/13/17 08:09 Dose: 1,000 mls/hr eMAR Start Stop Document 04/13/17 08:09 SRE (Rec: 04/13/17 08:10 SRE [id number]) Intravenous Solution Start Date 04/13/17 Start Time 08:09 End Date 04/13/17 End time 09:10 Total Infusion Time 61 - Scribe Statement The provider has reviewed the documentation as recorded by the Rimma Eckert Provider Scribe Attestation: All medical record entries made by the Scribe were at my direction and personally dictated by me. I have reviewed the chart and agree that the record accurately reflects my personal performance of the history, physical exam, medical decision making, and the department course for this patient. I have also personally directed, reviewed, and agree with the discharge instructions and disposition. Disposition/Present on Arrival - Present on Arrival Any Indicators Present on Arrival: No History of DVT/PE: No History of Uncontrolled Diabetes: No Urinary Catheter: No History of Decub. Ulcer: No History Surgical Site Infection Following: None - Disposition Have Diagnosis and Disposition been Completed?: Yes Diagnosis: Altered mental status Disposition: HOSPITALIZED Disposition Time: 08:00 Patient Plan: Admission Patient Problems: Current Active Problems Problem Status Onset Altered mental status Acute Condition: FAIR
[2017-04-13] MEDS ORDERED: Sodium Chloride 0.9% 500 ML IV STA (07:57)
--- NOTE | 2017-04-13 08:29 | RAD ---
HISTORY: Altered mental status COMPARISON: 03/29/2017 FINDINGS: LUNGS: The lungs are well inflated and clear. PLEURA: No significant pleural effusion identified, no pneumothorax apparent. CARDIOVASCULAR: The heart is normal in size. Status post CABG OSSEOUS STRUCTURES: There is stable appearance of posterior fixation hardware and interconnecting rods. VISUALIZED UPPER ABDOMEN: Normal. OTHER FINDINGS: None. IMPRESSION: No active pulmonary disease.
--- NOTE | 2017-04-13 10:16 | CP.PCM.CON ---
Addendum entered and electronically signed by Cris Presley DO 04/13/17 15: 17: Will also add Thiamine 100mg IM q8h Original Note: <Cris Presley - Last Filed: 04/13/17 10:52> History of Present Illness - History of Present Illness History of Present Illness: Neurology Consult for Oneida Badillo PGY2 Reason for consult: AMS This is a 67Y M with PMH DM, HTN, CAD, chronic back pain, anxiety, HLD, COPD, chronic osteomyelitis, Hep C who came from rehab facility for confusion and AMS. Patient was at a rehab facility for treatment of osteomyelitis. He was on IV Zyvox. Upon exam, patient was confused reporting that he needs a stage electrician helper and bail money to get out of custodial. He is alert to person, but does not know place and time. He is able to follow some commands and speech is intact. I spoke with his son on the phone who reports that patient is usually A&O x 3 at baseline and is able to live by himself at the senior facility and pay some of his own bills. The patient had an episode of delirium at his last admission and was evaluated by psychiatry on 04/07/17 which was thought to be secondary to infection. Patient reports having pain in his legs bilaterally, but denies CP, SOB, n/v/d, numbness/tingling, fever or chills. As per son, patient does not have any psych history in the past except for depression. PMH: DM, HTN, CAD, chronic back pain, anxiety, HLD, COPD, chronic osteomyelitis , Hep C PSH: CABG, cholecystectomy, multiple foot surgeries Home meds: As per MAR (includes methadone) All: NKDA SH: Current smoker, former alcohol abuse and possible drug abuse many yrs ago. Lives in senior facility Review of Systems - Review of Systems Systems not reviewed;Unavailable: Altered Mental Status All systems: reviewed and no additional remarkable complaints except Review of Systems: Patient reports pain in legs bilaterally Past Patient History - Infectious Disease Hx of Infectious Diseases: None - Tetanus Immunizations Tetanus Immunization: Unknown - Past Social History Smoking Status: Former Smoker - CARDIAC Hx Cardiac Disorders: Yes Hx Hypertension: Yes - PULMONARY Hx Respiratory Disorders: Yes Hx Pneumonia: Yes - NEUROLOGICAL Hx Transient Ischemic Attacks (TIA): No - HEENT Hx HEENT Problems: No - RENAL Hx Chronic Kidney Disease: No - ENDOCRINE/METABOLIC Hx Diabetes Mellitus Type 2: Yes - HEMATOLOGICAL/ONCOLOGICAL Hx Cancer: No - INTEGUMENTARY Hx Dermatological Problems: Yes (RIGHT 2ND TOE AMPUTATED) - MUSCULOSKELETAL/RHEUMATOLOGICAL Hx Falls: No - GASTROINTESTINAL Hx Gastrointestinal Disorders: No - GENITOURINARY/GYNECOLOGICAL Hx Genitourinary Disorders: No Hx Reproductive Disorders: No - PSYCHIATRIC Hx Psychophysiologic Disorder: Yes Hx Depression: Yes (pt reports peroids of sadness) Hx Substance Use: Yes - SURGICAL HISTORY Hx Mastectomy: No - ANESTHESIA Hx Anesthesia Reactions: No Hx Malignant Hyperthermia: No Meds Allergies/Adverse Reactions: Allergies Allergy/AdvReac Type Severity Reaction Status Date / Time No Known Allergies Allergy Verified 04/13/17 16:15 - Medications Medications: Current Medications Insulin Human Regular (Humulin R Low) 0 units SC ACHS EZE PRN Reason: Protocol Physical Exam - Constitutional Appears: No Acute Distress, Confused - Head Exam Head Exam: ATRAUMATIC, NORMAL INSPECTION, NORMOCEPHALIC - Eye Exam Eye Exam: Normal appearance, PERRL Pupil Exam: NORMAL ACCOMODATION, PERRL - ENT Exam ENT Exam: Mucous Membranes Moist - Respiratory Exam Respiratory Exam: Clear to Auscultation Bilateral, NORMAL BREATHING PATTERN. absent: Rales, Rhonchi, Wheezes - Cardiovascular Exam Cardiovascular Exam: REGULAR RHYTHM, +S1, +S2. absent: Gallop, Rubs, Systolic Murmur - GI/Abdominal Exam GI & Abdominal Exam: Normal Bowel Sounds, Soft. absent: Mass, Rebound, Rigid, Tenderness - Extremities Exam Extremities exam: Negative for: pedal edema Additional comments: discoloration of shins bilaterally, toe amputations bilaterally - Neurological Exam Neurological exam: CN II-XII Intact Additional comments: A&O x 1 to person. No focal neurologic deficits. Moving all 4 extremities, toes down going- negative babinski - Psychiatric Exam Psychiatric exam: Normal Affect, Normal Mood - Skin Skin Exam: Dry, Warm Results - Vital Signs Recent Vital Signs: Last Vital Signs Temp 97.9 F 04/13/17 09:04 Pulse 92 H 04/13/17 09:04 Resp 18 04/13/17 09:04 BP 168/86 H 04/13/17 09:04 Pulse Ox 98 04/13/17 09:04 - Labs Result Diagrams: 04/13/17 06:05 04/13/17 06:05 Assessment & Plan - Assessment and Plan (Free Text) Assessment: This is a 67Y M with PMH DM, HTN, CAD, chronic back pain, anxiety, HLD, COPD, chronic osteomyelitis, Hep C who came from rehab facility for confusion and AMS. Patient was refusing head CT, but now agrees. Patient noted to have elevated LFTs from previous d/c. Abdominal U/S in 03/2017 showed fatty liver. AMS secondary to delirium v. hepatic encephalopathy v. CVA. Plan: - Head CT and possible brain MRI if pt tolerates - Will obtain ammonia level - Avoid sedating medication - Psych consulted for delirium - Continue re-orientation of pt Case seen, discussed and reviewed with attending, Dr. Leslie. Oneida Presley PGY2 - Date & Time Date: 04/13/17 Time: 10:56 <Bill Leslie - Last Filed: 04/13/17 16:16> Meds - Medications Medications: Current Medications Amlodipine Besylate (Norvasc) 5 mg PO DAILY EZE Last Admin: 04/13/17 11:10 Dose: 5 mg Atorvastatin Calcium (Lipitor) 40 mg PO DIN EZE Famotidine (Pepcid) 40 mg PO HS EZE Insulin Human Regular (Humulin R Low) 0 units SC ACHS EZE PRN Reason: Protocol Last Admin: 04/13/17 12:40 Dose: Not Given Metformin HCl (Glucophage) 500 mg PO DAILY EZE Multivitamins/Minerals (Therapeutic-M Tab) 1 tab PO 0800 EZE Risperidone (Risperdal Tab) 0.5 mg PO 1000,1600,2200 EZE Thiamine HCl (Vitamin B1 Tab) 100 mg PO Q8 EZE Ziprasidone (Geodon Inj) 20 mg IM ONCE ONE PRN Reason: Protocol Stop: 04/13/17 16:31 Results - Vital Signs Recent Vital Signs: Last Vital Signs Temp 98 F 04/13/17 10:39 Pulse 88 04/13/17 11:10 Resp 18 04/13/17 10:39 BP 171/100 H 04/13/17 11:10 Pulse Ox 98 04/13/17 10:39 - Labs Result Diagrams: 04/13/17 06:05 04/13/17 06:05 Labs: Laboratory Results - last 24 hr 10/10/17 11:20 Ammonia < 9 L Attending/Attestation - Attestation I have personally seen and examined this patient.: Yes I have fully participated in the care of the patient.: Yes I have reviewed all pertinent clinical information: Yes
[2017-04-13] MEDS: Insulin Reg-LOW-Coverage SC SCH ×3 (12:40→22:22)
[2017-04-13] MEDS ORDERED: Thiamine 100 mg/ml Inj IM SCH (15:30)
[2017-04-13] MEDS ORDERED: Pneumococcal 23-Valent Vaccine IM ONE (17:00)
--- NOTE | 2017-04-13 18:48 | CON ---
DATE: 04/13/2017 CARDIOLOGY CONSULTATION HISTORY OF PRESENT ILLNESS: The patient is a 67-year-old male who was recently discharged from the hospital after surgery for his osteomyelitis. He returns with confusion and altered mental status from the subacute rehab. PAST MEDICAL HISTORY: Notable for history of coronary artery bypass surgery, CAD, peripheral vascular disease as well as severe COPD. The patient is confused and unable to elicit any cardiac symptoms. SOCIAL HISTORY: He is a former smoker. REVIEW OF SYSTEMS: A 14-point review of systems was unavailable. PHYSICAL EXAMINATION: VITAL SIGNS: Blood pressure is 159/88, heart rate in the 70s. NECK: Negative JVD. LUNGS: Without rales. HEART: Reveals S1 and S2. EXTREMITIES: Without edema. EKG shows normal sinus rhythm with left anterior hemiblock and right bundle-branch block. LABORATORIES: Hemoglobin is 11.5. Chemistries: Troponins are negative. Toxicology is positive for methadone. IMPRESSION: 1. Marked altered mental status with confusion. 2. Stable angina. 3. Coronary artery disease. 4. History of coronary artery bypass surgery. 5. Chronic obstructive pulmonary disease. 6. Peripheral vascular disease. 7. History of osteomyelitis. 8. Hypercholesterolemia. PLAN: Given these findings, repeat toxicology has been ordered. The patient may need alterations of his medications. His cardiac status is stable at this time. Leif Oleary MD
[2017-04-13] MEDS ORDERED: Sod Polystyrene Sulf 15 gm/60 ml Susp PO ONE (19:01)
--- NOTE | 2017-04-13 19:35 | CON ---
DATE: 04/13/2017 LOCATION: The patient seen in bed, room 572, bed 1. CHIEF COMPLAINT: Change in mental status since . HISTORY OF PRESENT ILLNESS: A 67-year-old male who was recently hospitalized and discharged with surgery, had amputation of fifth ray and found to have acute osteomyelitis with Corynebacterium, was discharged on Zyvox and meropenem. The patient has a history of coronary artery disease, migraine, chronic obstructive lung disease, hypertension, hyperlipidemia, history of MRSA, bacteremia, history of diskitis, history of diabetes mellitus, history of coronary artery bypass graft, laminectomy, and cholecystectomy, who has recently had foot surgery, and was discharged on antibiotics and the patient also was on methadone. There is a question that the patient had received his methadone although this is not clear where the patient was being cared for. PAST MEDICAL HISTORY: Significant for coronary artery disease, migraine, chronic obstructive lung disease, diabetes, hyperlipidemia, MRSA, bacteremia, gastritis, hypertension, and the recent diagnosis of osteomyelitis with Corynebacterium. PAST SURGICAL HISTORY: Significant for coronary artery bypass graft, laminectomy, and cholecystectomy. ALLERGIES: THE PATIENT HAS NO KNOWN ALLERGIES. MEDICATIONS: Medications at the facility where he came from included Lopressor, insulin, Zyvox, Zosyn, methadone, which is 40 mg daily, Pepcid, and another methadone is listed as 30 mg a day and Glucophage, Lovenox, Klonopin, Lipitor, and aspirin. REVIEW OF SYSTEMS: Reveals there is no fevers, no chills. He denies headache or sore throat. He obviously has confusion and he is not sure where he is and his behavior has changed. There is no abdominal pain, diarrhea, or constipation. No bright blood per rectum. No melena. PHYSICAL EXAMINATION GENERAL: He is in bed. He is not in any acute distress, however, he is confused. VITAL SIGNS: He has a temperature of 98, respiratory rate of 18, blood pressure 168/86, heart rate 88, on oxygenation on room air of 99%. HEENT: Unremarkable. NECK: Supple. LUNGS: Decreased have breath sounds. HEART: Normal S1 and S2. ABDOMINAL: Soft and nontender. No rebound. No guarding. No masses. LABORATORY DATA: Reveals a white count of 9.6, hemoglobin of 11, platelet 169, with a 75% granulocytosis and coagulation is noted. INR is 1.1. Chemistry; reveal a BUN of 19, creatinine of 0.9, AST 106, ALT of 64, alk phos is 103. Urinalysis is 0 to 2 wbcs. The patient's blood sugar of 127 and serum bicarbonate is 29, microbiology is reviewed from past and his last culture is growing Corynebacterium species and in 02/2017, the patient did have Corynebacterium, Serratia, and Enterobacter aerogenes. ASSESSMENT: This is a 67-year-old male recently discharged with history of coronary artery disease, hypertension, migraine, chronic obstructive lung disease, diabetes, hyperlipidemia, methicillin-resistant Staphylococcus aureus, bacteremia, diskitis, with status post amputation of fifth ray and now presenting with an acute change in mental status, must rule out underlying medication or drug interaction, medication induced change in mental status versus metabolic causes, in a patient with acute osteomyelitis with Corynebacterium post procedure of day #15. PLAN: We will restart therapy with vancomycin IV and follow the patient at this time and pending blood cultures, the patient's clinical response, psychiatric evaluation, neurologic evaluation, MRI of the head, and review of the medications. We will follow with you. Roel English MD
--- NOTE | 2017-04-13 20:53 | CON ---
PSYCHIATRIC CONSULTATION DATE: HISTORY OF PRESENT ILLNESS: The patient is a 67-year-old male brought to the emergency room from a acute rehab. The patient had gotten highly agitated, confused, noncompliant and verbally uncooperative towards our staff. I reviewed the chart. Spoke to the patient. Spoke to the patient's son. Spoke to attending physician, Dr. Villa. The patient has a long history of chronic pain. He has been on methadone for 15 years. It has been gradually reduced in dose. He has received none today. It is unclear whether he received any yesterday. The patient is receiving methadone due to chronic pain. The patient is also being currently treated for osteomyelitis. He has been on IV Zosyn and Zyvox. PAST MEDICAL HISTORY: The patient's other past history, he has chronic pain. He has severe lumbar injuries to the spine. He also has diabetes mellitus, hypertension, coronary artery disease, hypercholesterolemia and currently osteomyelitis. The patient has past history of alcohol abuse, none in recent years according to son. PERSONAL HISTORY: He is . He has a girlfriend. He lives alone. His family checks on him as well as his girlfriend. He was living independently until recently. He is on social security disability. CURRENT LABORATORY DATA: As follows, sodium 139, potassium 5.4, chloride 99, CO2 of 29, anion gap 16, BUN 19 and creatinine 0.9. Random glucose 20. Estimated GFR greater than 60. Total bilirubin 1.6. AST is 106 and ALT is 64. Ammonia level less than 9. CPK is 696, upper limits of normal 230, albumin 4.2. The patient's CBC, white count 9600, hemoglobin 11.6, and platelet count 169,000. Urine is slightly hazy, trace of ketones, large amount of blood. Urinary leukocyte esterase is negative. The patient had a chest x-ray early this morning in the ER that showed no active pulmonary problems. REVIEW OF SYSTEMS: The patient is unable to give clear review of systems due to impaired mental status. MENTAL STATUS EXAMINATION: He is awake, he is alert, but very confused, totally disoriented and fabulatory. His thought process, he is incoherent, unable to carry on any conversations or cooperate for any formal mental status exam. He is totally disoriented to all spheres. There is no suicidal ideation. It is unclear whether he is hallucinating. PHYSICAL EXAMINATION: VITAL SIGNS: Blood pressure 171/100, pulse 88, and respirations 18 per minute. CURRENT MEDICATIONS: Include Norvasc, Humulin protocol, Lipitor 40 mg daily, Pepcid, multivitamins, Glucophage 500 mg daily, and Lopressor. IMPRESSION: Acute delirium, etiology unclear, possibly in part due to hepatic encephalopathy, possibly due to withdrawal from methadone, possibly due to interaction of antibiotics and methadone. The patient also has a history of coronary artery disease. He has a history of diabetes mellitus, hypertension, has chronic pain, is opiate dependent, methadone dependent, has osteomyelitis, treating with IV antibiotics. PLAN: We will get a CT scan of the head. We will discuss case with Dr. Villa. We will order stat dose of Geodon 10 mg IM. We will order Risperdal 0.5 mg b.i.d. and at bedtime. We will monitor mental status and discuss with the nursing staff. Jatinder Coulter MD
[2017-04-13] MEDS: Vancomycin 1gm in NS 250ml 1 GM/250 ML BAG IVPB SCH (22:09)
[2017-04-14 07:25] LABS: HEMATOCRIT 33.5 % (42.0-52.0); MEAN CELL VOLUME 83.5 fl (80.0-105.0); MEAN CORPUSCULAR HEMOGLOBIN 26.9 pg (25.0-35.0); MEAN CORPUSCULAR HGB CONC 32.2 g/dl (31.0-37.0); MEAN PLATELET VOLUME 9.4 fl (7.0-11.0); RED CELL DISTRIBUTION WIDTH 16.9 % (11.5-14.5); WHITE BLOOD COUNT 8.3 10^3/ul (4.5-11.0)
[2017-04-14] MEDS: Insulin Reg-LOW-Coverage SC SCH ×4 (07:42→22:23)
[2017-04-14 08:05] LABS: ALKALINE PHOSPHATASE 95 U/L (38-126); ALT/SGPT 66 U/L (7-56); AST/SGOT 87 U/L (17-59); BILIRUBIN,TOTAL 1.4 mg/dL (0.2-1.3); BLOOD UREA NITROGEN 17 mg/dL (7-21); CARBON DIOXIDE 32 mmol/L (21-33); CHLORIDE 102 mmol/L (98-107); GFR AFRICAN-AMERICAN > 60; GLUCOSE,RANDOM 130 mg/dL (70-110); POTASSIUM 3.6 mmol/L (3.6-5.0); SODIUM 142 mmol/L (132-148); TOTAL PROTEIN 7.3 g/dL (5.8-8.3)
--- NOTE | 2017-04-14 09:13 | CP.PCM.PN ---
<Cris Presley - Last Filed: 04/14/17 12:36> Subjective - Date & Time of Evaluation Date of Evaluation: 04/14/17 Time of Evaluation: 09:09 - Subjective Subjective: Neurology Progress Note for Oneida Badillo PGY2 Patient seen and examined at bedside. Overnight, patient was agitated and confused. He was placed in restraints and 1:1 sitter. He also received Ativan, but did not sleep all night. This am, patient is mumbling to himself and is only alert to person. He denies having any pain, CP, SOB, weakness, numbness/ tingling, n/v/d, fever or chills. Objective - Vital Signs/Intake and Output Vital Signs (last 24 hours): Temp Pulse Resp BP Pulse Ox 98.6 F 84 20 152/83 H 95 04/14/17 08:00 04/14/17 08:00 04/14/17 08:00 04/14/17 08:00 04/14/17 08:00 Intake and Output: 04/14/17 04/14/17 06:59 18:59 Intake Total 350 Balance 350 - Medications Medications: Current Medications Amlodipine Besylate (Norvasc) 5 mg PO DAILY EZE Last Admin: 04/13/17 11:10 Dose: 5 mg Atorvastatin Calcium (Lipitor) 40 mg PO DIN EZE Last Admin: 04/13/17 16:44 Dose: 40 mg Famotidine (Pepcid) 40 mg PO HS EZE Last Admin: 04/13/17 22:10 Dose: 40 mg Heparin Sodium (Porcine) (Heparin) 5,000 units SC Q8 EZE PRN Reason: Protocol Last Admin: 04/14/17 05:41 Dose: 5,000 units Vancomycin HCl (Vancomycin 1gm) 1 gm in 250 mls @ 167 mls/hr IVPB Q12 EZE PRN Reason: Protocol Stop: 04/27/17 22:01 Last Admin: 04/13/17 22:09 Dose: 167 mls/hr Insulin Human Regular (Humulin R Low) 0 units SC ACHS EZE PRN Reason: Protocol Last Admin: 04/13/17 22:22 Dose: Not Given Lorazepam (Ativan) 0.5 mg IVP Q4H PRN; Protocol PRN Reason: Anxiety Last Admin: 04/14/17 05:02 Dose: 0.5 mg Metformin HCl (Glucophage) 500 mg PO DAILY [facility] Methadone HCl (Methadone) 10 mg PO QID [facility] Multivitamins/Minerals (Therapeutic-M Tab) 1 tab PO 0800 [facility] Risperidone (Risperdal Tab) 0.5 mg PO 1000,1600,2200 [facility] Last Admin: 04/13/17 22:10 Dose: 0.5 mg Thiamine HCl (Vitamin B1 Tab) 100 mg PO Q8 [facility] Last Admin: 04/14/17 05:42 Dose: 100 mg - Labs Labs: 04/14/17 07:22 04/14/17 07:22 PT 12.0 Seconds (9.9-11.8) H 04/13/17 06:05 INR 1.11 (0.93-1.08) H 04/13/17 06:05 APTT 29.2 Seconds (23.7-30.8) 04/13/17 06:05 - Constitutional Appears: No Acute Distress - Head Exam Head Exam: ATRAUMATIC, NORMAL INSPECTION, NORMOCEPHALIC - Eye Exam Eye Exam: Normal appearance, PERRL Pupil Exam: NORMAL ACCOMODATION, PERRL - ENT Exam ENT Exam: Mucous Membranes Moist - Respiratory Exam Respiratory Exam: Clear to Ausculation Bilateral, NORMAL BREATHING PATTERN. absent: Rales, Rhonchi, Wheezes - Cardiovascular Exam Cardiovascular Exam: REGULAR RHYTHM, +S1, +S2. absent: Gallop, Rubs, Murmur - GI/Abdominal Exam GI & Abdominal Exam: Soft, Normal Bowel Sounds. absent: Rigid, Tenderness, Mass , Rebound - Extremities Exam Additional comments: Discoloration of shins bilaterally, multiple toe amputations on feet bilaterally - Neurological Exam Neurological Exam: Alert, Awake, CN II-XII Intact. absent: Motor Sensory Deficit, Oriented x3 Neuro motor strength exam: Left Upper Extremity: 5, Right Upper Extremity: 5, Left Lower Extremity: 5, Right Lower Extremity: 5 - Psychiatric Exam Psychiatric exam: Agitated - Skin Skin Exam: Dry, Warm Assessment and Plan - Assessment and Plan (Free Text) Assessment: This is a 67Y M with PMH DM, HTN, CAD, chronic back pain, anxiety, HLD, COPD, chronic osteomyelitis, Hep C who came from rehab facility for confusion and AMS. Patient was refusing head CT, but now agrees. Patient noted to have elevated LFTs from previous d/c. Abdominal U/S in 03/[address]. Head CT negative. AMS secondary to delirium. Plan: - Seroquel 25mg BID - Avoid sedating medication - Psych consulted for delirium - pt placed on Respirodone without any relief - Continue re-orientation of pt Thank you for this consultation. Will sign off. Please re-consult if needed. Case seen, discussed and reviewed with attending, Dr. Leslie. Oneida Presley PGY2 <Bill Leslie - Last Filed: 04/14/17 13:47> Objective - Vital Signs/Intake and Output Vital Signs (last 24 hours): Temp Pulse Resp BP Pulse Ox 98.6 F 84 20 152/83 H 95 04/14/17 08:00 04/14/17 11:39 04/14/17 08:00 04/14/17 11:39 04/14/17 08:00 Intake and Output: 04/14/17 04/14/17 06:59 18:59 Intake Total 350 Balance 350 - Medications Medications: Current Medications Amlodipine Besylate (Norvasc) 5 mg PO DAILY EZE Last Admin: 04/14/17 11:39 Dose: 5 mg Atorvastatin Calcium (Lipitor) 40 mg PO DIN EZE Last Admin: 04/13/17 16:44 Dose: 40 mg Famotidine (Pepcid) 40 mg PO HS EZE Last Admin: 04/13/17 22:10 Dose: 40 mg Heparin Sodium (Porcine) (Heparin) 5,000 units SC Q8 EZE PRN Reason: Protocol Last Admin: 04/14/17 05:41 Dose: 5,000 units Vancomycin HCl (Vancomycin 1gm) 1 gm in 250 mls @ 167 mls/hr IVPB Q12 EZE PRN Reason: Protocol Stop: 04/27/17 22:01 Last Admin: 04/14/17 11:40 Dose: 167 mls/hr Insulin Human Regular (Humulin R Low) 0 units SC ACHS EZE PRN Reason: Protocol Last Admin: 04/14/17 11:45 Dose: Not Given Lorazepam (Ativan) 0.5 mg IVP Q4H PRN; Protocol PRN Reason: Anxiety Last Admin: 04/14/17 05:02 Dose: 0.5 mg Lorazepam (Ativan) 1 mg PO HS EZE Lorazepam (Ativan) 0.5 mg PO BID [facility] Metformin HCl (Glucophage) 500 mg PO DAILY [facility] Last Admin: 04/14/17 11:36 Dose: 500 mg Methadone HCl (Methadone) 10 mg PO QID [facility] Last Admin: 04/14/17 11:38 Dose: 10 mg Multivitamins/Minerals (Therapeutic-M Tab) 1 tab PO 0800 [facility] Last Admin: 04/14/17 11:41 Dose: 1 tab Risperidone (Risperdal Tab) 2 mg PO HS EZE Risperidone (Risperdal Tab) 1 mg PO 0800,1600 [facility] Thiamine HCl (Vitamin B1 Tab) 100 mg PO Q8 [facility] Last Admin: 04/14/17 05:42 Dose: 100 mg - Labs Labs: 04/14/17 07:22 04/14/17 07:22 PT 12.0 Seconds (9.9-11.8) H 04/13/17 06:05 INR 1.11 (0.93-1.08) H 04/13/17 06:05 APTT 29.2 Seconds (23.7-30.8) 04/13/17 06:05 Attending/Attestation - Attestation I have personally seen and examined this patient.: Yes I have fully participated in the care of the patient.: Yes I have reviewed all pertinent clinical information, including history, physical exam and plan: Yes
--- NOTE | 2017-04-14 10:28 | CT ---
PROCEDURE: CT HEAD WITHOUT CONTRAST. HISTORY: Acute delirium COMPARISON: None available. TECHNIQUE: Axial computed tomography images were obtained through the head/brain without intravenous contrast. Radiation dose: Total exam DLP = 858 mGy-cm. This CT exam was performed using one or more of the following dose reduction techniques: Automated exposure control, adjustment of the mA and/or kV according to patient size, and/or use of iterative reconstruction technique. FINDINGS: HEMORRHAGE: No intracranial hemorrhage. BRAIN: No mass effect or edema. Chronic encephalomalacia is seen in the left temporal lobe VENTRICLES: Unremarkable. No hydrocephalus. CALVARIUM: Unremarkable. PARANASAL SINUSES: Unremarkable as visualized. No significant inflammatory changes. MASTOID AIR CELLS: Unremarkable as visualized. No inflammatory changes. OTHER FINDINGS: None. IMPRESSION: Chronic encephalomalacia in the left temporal lobe. No acute findings
[2017-04-14] MEDS: Vancomycin 1gm in NS 250ml 1 GM/250 ML BAG IVPB SCH ×2 (11:40→21:24)
[2017-04-14] MEDS: Multivitamin With Minerals Tab PO SCH (11:41)
--- NOTE | 2017-04-14 11:41 | CARD ---
APPROVED REPORT EKG Measurement Heart [id number] <Conclusion> Normal sinus rhythm Right bundle branch block Left anterior fascicular block Bifascicular block Inferior infarct, age undetermined Abnormal ECG
--- NOTE | 2017-04-14 12:24 | CP.PCM.CON ---
<Ingris Mccartney - Last Filed: 04/14/17 15:38> History of Present Illness - History of Present Illness History of Present Illness: Seen and examined at the bedside earlier this morning, the chart was reviewed. Request for GI consult is for elevated liver enzymes. HPI: This is a 67-year-old male with a past medical history of diabetes mellitus , hypertension, coronary artery disease,chronic hepatitis C,not treated,and recent toe amputation for osteomyelitis brought from senior living for altered mental status. The patient was confused and combative at the time. On on admission the patient is noted to have elevated liver enzymes. In review of his recent lab work the patient's liver enzymes were noted to have some mild elevation of AST and ALT, he was on antibiotics at that time. He did have hepatitis C RNA and quantitative PCR done which were both elevated. Alpha- fetoprotein was done on 03/29/2017 which was normal at 1.3 his most recent abdominal ultrasound was done on 03/26/2017 and this showed fatty infiltration of the liver and mild splenomegaly and mild diffuse dilatation of common bile duct keeping with postcholecystectomy. In December 2015 he had an EGD/EUS for dilated CBD that showed multiple gallstones and periportal lymph nodes and he then had a cholecystectomy with liver biopsy, has found have chronic Hepatitis C , biopsy reveal Grade 2 Stage 3. The liver biopsy shows periportal inflammation with focal bridge fibrosis. Patient has not had any treatment.Currently the patient is on one-to-one, he is oriented to self but is confused to time and place. He denies nausea, vomiting, or abdominal pain no reports of overt GI bleed.head CT was done and it was negative for intracranial hemorrhage, showed chronic encephalomalacia in the left temporal lobe. PMHx: DM Type II, CAD, hyperlipidemia, hypertension, and PVD ,Hepatitis C, chronic back wound Surgical hx: CABG, coronary stent X 2, cholecystectomy, laminectomy, right toe amputation for osteomyelitis Family hx: denies colon/gastric cancer, says parents were healthy, father in 80's Social hx: smokes < 10 cigarettes/day, hx of ETOH, denies drugs Meds: reviewed as per SEP. Allergies: NKDA ROS: Systems reviewed with positive findings, see HPI. Past Patient History - Infectious Disease Hx of Infectious Diseases: None - Tetanus Immunizations Tetanus Immunization: Unknown - Past Social History Smoking Status: Current Some Days Smoker - CARDIAC Hx Cardiac Disorders: Yes (CAD,CABG) Hx Hypercholesterolemia: Yes Hx Hypertension: Yes Hx Peripheral Vascular Disease: Yes - PULMONARY Hx Respiratory Disorders: Yes Hx Pneumonia: Yes - NEUROLOGICAL Hx Neurological Disorder: Yes Hx Dizziness: Yes Hx Transient Ischemic Attacks (TIA): No - HEENT Hx HEENT Problems: No - RENAL Hx Chronic Kidney Disease: No - ENDOCRINE/METABOLIC Hx Endocrine Disorders: Yes Hx Diabetes Mellitus Type 2: Yes - HEMATOLOGICAL/ONCOLOGICAL Hx Cancer: No - INTEGUMENTARY Hx Dermatological Problems: Yes (RIGHT 2ND TOE AND 5TH TOE AMPUTATED) - MUSCULOSKELETAL/RHEUMATOLOGICAL Hx Musculoskeletal Disorders: Yes (DISCITIS) Hx Falls: Yes Hx Osteomyelitis: Yes Hx Unsteady Gait: Yes - GASTROINTESTINAL Hx Gastrointestinal Disorders: Yes (HEMORRHOIDS,FATTY LIVER) Hx Ulcer: Yes - GENITOURINARY/GYNECOLOGICAL Hx Genitourinary Disorders: Yes Hx Incontinence: Yes - PSYCHIATRIC Hx Psychophysiologic Disorder: Yes (H/O ETOH ABUSE.) Hx Anxiety: Yes Hx Depression: Yes (pt reports periods of sadness) Hx Substance Use: No - SURGICAL HISTORY Hx Surgeries: Yes (R 2ND AND 5TH TOE AMPUTATION,CABG,MULTIPLE FOOT SX) Hx Appendectomy: Yes Hx Cardiac Catheterization: Yes Hx Cholecystectomy: Yes Hx Mastectomy: No Other/Comment: MID LINE TO LEFT UPPER ARM.,CARD CATH - ANESTHESIA Hx Anesthesia Reactions: No Hx Malignant Hyperthermia: No Meds Allergies/Adverse Reactions: Allergies Allergy/AdvReac Type Severity Reaction Status Date / Time No Known Allergies Allergy Verified 04/13/17 16:15 - Medications Medications: Current Medications Amlodipine Besylate (Norvasc) 5 mg PO DAILY [facility] Last Admin: 04/14/17 11:39 Dose: 5 mg Atorvastatin Calcium (Lipitor) 40 mg PO DIN [facility] Last Admin: 04/13/17 16:44 Dose: 40 mg Famotidine (Pepcid) 40 mg PO HS [facility] Last Admin: 04/13/17 22:10 Dose: 40 mg Heparin Sodium (Porcine) (Heparin) 5,000 units SC Q8 EZE PRN Reason: Protocol Last Admin: 04/14/17 05:41 Dose: 5,000 units Vancomycin HCl (Vancomycin 1gm) 1 gm in 250 mls @ 167 mls/hr IVPB Q12 EZE PRN Reason: Protocol Stop: 04/27/17 22:01 Last Admin: 04/14/17 11:40 Dose: 167 mls/hr Insulin Human Regular (Humulin R Low) 0 units SC ACHS EZE PRN Reason: Protocol Last Admin: 04/14/17 11:45 Dose: Not Given Lorazepam (Ativan) 0.5 mg IVP Q4H PRN; Protocol PRN Reason: Anxiety Last Admin: 04/14/17 05:02 Dose: 0.5 mg Metformin HCl (Glucophage) 500 mg PO DAILY [facility] Last Admin: 04/14/17 11:36 Dose: 500 mg Methadone HCl (Methadone) 10 mg PO QID [facility] Last Admin: 04/14/17 11:38 Dose: 10 mg Multivitamins/Minerals (Therapeutic-M Tab) 1 tab PO 0800 [facility] Last Admin: 04/14/17 11:41 Dose: 1 tab Risperidone (Risperdal Tab) 0.5 mg PO 1000,1600,2200 [facility] Last Admin: 04/14/17 11:36 Dose: 0.5 mg Thiamine HCl (Vitamin B1 Tab) 100 mg PO Q8 [facility] Last Admin: 04/14/17 05:42 Dose: 100 mg Physical Exam - Constitutional Appears: No Acute Distress - Head Exam Head Exam: NORMAL INSPECTION - Eye Exam Eye Exam: Normal appearance. absent: Scleral icterus - ENT Exam ENT Exam: Mucous Membranes Moist - Neck Exam Neck exam: Positive for: Normal Inspection - Respiratory Exam Respiratory Exam: Decreased Breath Sounds, NORMAL BREATHING PATTERN. absent: Rales, Wheezes, Respiratory Distress - Cardiovascular Exam Cardiovascular Exam: +S1, +S2 - GI/Abdominal Exam GI & Abdominal Exam: Normal Bowel Sounds, Soft (laboratory tests didn't answer me back. Nothing except that Hamida phone call is). absent: Guarding, Organomegaly, Rebound, Tenderness - Extremities Exam Extremities exam: Positive for: pedal pulses present. Negative for: calf tenderness, pedal edema Additional comments: right foot with toes amputated, bandage noted in place - Neurological Exam Neurological exam: Alert, Altered (confused) Additional comments: oriented to self only, (+) mild hand tremors Results - Vital Signs Recent Vital Signs: Last Vital Signs Temp 98.6 F 04/14/17 08:00 Pulse 84 04/14/17 11:39 Resp 20 04/14/17 08:00 BP 152/83 H 04/14/17 11:39 Pulse Ox 95 04/14/17 08:00 - Labs Result Diagrams: 04/14/17 07:22 04/14/17 07:22 Labs: Laboratory Results - last 24 hr 04/13/17 04/13/17 04/13/17 12:20 16:01 21:44 WBC RBC Hgb Hct MCV MCH MCHC RDW Plt Count MPV Sodium Potassium Chloride Carbon Dioxide Anion Gap BUN Creatinine Est GFR ( Amer) Est GFR (Non-Af Amer) POC Glucose (mg/dL) 131 H 105 Random Glucose Calcium Total Bilirubin AST ALT Alkaline Phosphatase Total Protein Albumin Globulin Albumin/Globulin Ratio 25-OH Vitamin D Total 49.7 TSH 3rd Generation 04/14/17 04/14/17 04/14/17 07:15 07:22 07:22 WBC 8.3 RBC 4.01 Hgb 10.8 L Hct 33.5 L MCV 83.5 MCH 26.9 MCHC 32.2 RDW 16.9 H Plt Count 151 MPV 9.4 Sodium 142 Potassium 3.6 Chloride 102 Carbon Dioxide 32 Anion Gap 12 BUN 17 Creatinine 0.8 Est GFR ( Amer) > 60 Est GFR (Non-Af Amer) > 60 POC Glucose (mg/dL) 138 H Random Glucose 130 H Calcium 9.0 Total Bilirubin 1.4 H AST 87 H ALT 66 H Alkaline Phosphatase 95 Total Protein 7.3 Albumin 3.7 Globulin 3.6 Albumin/Globulin Ratio 1.0 L 25-OH Vitamin D Total TSH 3rd Generation 04/14/17 07:22 WBC RBC Hgb Hct MCV MCH MCHC RDW Plt Count MPV Sodium Potassium Chloride Carbon Dioxide Anion Gap BUN Creatinine Est GFR ( Amer) Est GFR (Non-Af Amer) POC Glucose (mg/dL) Random Glucose Calcium Total Bilirubin AST ALT Alkaline Phosphatase Total Protein Albumin Globulin Albumin/Globulin Ratio 25-OH Vitamin D Total TSH 3rd Generation 2.19 Assessment & Plan - Assessment and Plan (Free Text) Assessment: Assessment: Altered mental status, differentials to consider is Payne verses hepatic encephalopathy, ammonia level was less than 9 Chronic hepatitis C Elevated liver enzymes, recent abdominal ultrasound was 03/2017 show fatty liver , history of cholecystectomy, differentials to consider:medication induced, infectious hepatitis, hepatic congestion Elevated CPK Recent 5th toe amputation for osteomyelitis History of diabetes mellitus History of hypertension History of coronary artery disease History of COPD Plan: Trend liver enzymes Continue GI prophylaxis Patient is on methadone Avoid hepatotoxic medication On vancomycin IV On DVT prophylaxis Diet as tolerated start Xiafaxin Pending MRI of the brain Psych, neurology follow-up Thank you for this consult and for allowing us to participate in your patient's care, further recommendations based upon clinical course. Seen and discussed with Dr. Edouard. <Megan Edouard V - Last Filed: 04/14/17 21:15> Meds - Medications Medications: Current Medications Amlodipine Besylate (Norvasc) 5 mg PO DAILY [facility] Last Admin: 04/14/17 11:39 Dose: 5 mg Atorvastatin Calcium (Lipitor) 40 mg PO DIN [facility] Last Admin: 04/14/17 17:56 Dose: 40 mg Famotidine (Pepcid) 40 mg PO HS [facility] Last Admin: 04/13/17 22:10 Dose: 40 mg Heparin Sodium (Porcine) (Heparin) 5,000 units SC Q8 EZE PRN Reason: Protocol Last Admin: 04/14/17 14:53 Dose: 5,000 units Vancomycin HCl (Vancomycin 1gm) 1 gm in 250 mls @ 167 mls/hr IVPB Q12 EZE PRN Reason: Protocol Stop: 04/27/17 22:01 Last Admin: 04/14/17 11:40 Dose: 167 mls/hr Insulin Human Regular (Humulin R Low) 0 units SC ACHS EZE PRN Reason: Protocol Last Admin: 04/14/17 17:55 Dose: 2 units Lorazepam (Ativan) 0.5 mg IVP Q4H PRN; Protocol PRN Reason: Anxiety Last Admin: 04/14/17 05:02 Dose: 0.5 mg Lorazepam (Ativan) 1 mg PO HS EZE Lorazepam (Ativan) 0.5 mg PO BID [facility] Last Admin: 04/14/17 18:11 Dose: 0.5 mg Metformin HCl (Glucophage) 500 mg PO DAILY [facility] Last Admin: 04/14/17 11:36 Dose: 500 mg Methadone HCl (Methadone) 10 mg PO QID [facility] Last Admin: 04/14/17 17:57 Dose: 10 mg Multivitamins/Minerals (Therapeutic-M Tab) 1 tab PO 0800 [facility] Last Admin: 04/14/17 11:41 Dose: 1 tab Rifaximin (Xifaxan) 550 mg PO BID [facility]ZE PRN Reason: Protocol Last Admin: 04/14/17 17:56 Dose: 550 mg Risperidone (Risperdal Tab) 2 mg PO HS [facility]ZE Risperidone (Risperdal Tab) 1 mg PO 0800,1600 [facility] Thiamine HCl (Vitamin B1 Tab) 100 mg PO Q8 [facility] Last Admin: 04/14/17 05:42 Dose: 100 mg Results - Vital Signs Recent Vital Signs: Last Vital Signs Temp 98.6 F 04/14/17 08:00 Pulse 84 04/14/17 11:39 Resp 20 04/14/17 08:00 BP 152/83 H 04/14/17 11:39 Pulse Ox 95 04/14/17 08:00 - Labs Result Diagrams: 04/14/17 07:22 04/14/17 07:22 Labs: Laboratory Results - last 24 hr 04/13/17 04/14/17 04/14/17 21:44 07:15 07:22 WBC 8.3 RBC 4.01 Hgb 10.8 L Hct 33.5 L MCV 83.5 MCH 26.9 MCHC 32.2 RDW 16.9 H Plt Count 151 MPV 9.4 Sodium Potassium Chloride Carbon Dioxide Anion Gap BUN Creatinine Est GFR ( Amer) Est GFR (Non-Af Amer) POC Glucose (mg/dL) 105 138 H Random Glucose Calcium Total Bilirubin AST ALT Alkaline Phosphatase Total Protein Albumin Globulin Albumin/Globulin Ratio Vitamin B12 TSH 3rd Generation 04/14/17 04/14/17 04/14/17 07:22 07:22 11:06 WBC RBC Hgb Hct MCV MCH MCHC RDW Plt Count MPV Sodium 142 Potassium 3.6 Chloride 102 Carbon Dioxide 32 Anion Gap 12 BUN 17 Creatinine 0.8 Est GFR ( Amer) > 60 Est GFR (Non-Af Amer) > 60 POC Glucose (mg/dL) 115 H Random Glucose 130 H Calcium 9.0 Total Bilirubin 1.4 H AST 87 H ALT 66 H Alkaline Phosphatase 95 Total Protein 7.3 Albumin 3.7 Globulin 3.6 Albumin/Globulin Ratio 1.0 L Vitamin B12 695 TSH 3rd Generation 2.19 04/14/17 16:14 WBC RBC Hgb Hct MCV MCH MCHC RDW Plt Count MPV Sodium Potassium Chloride Carbon Dioxide Anion Gap BUN Creatinine Est GFR ( Amer) Est GFR (Non-Af Amer) POC Glucose (mg/dL) 204 H Random Glucose Calcium Total Bilirubin AST ALT Alkaline Phosphatase Total Protein Albumin Globulin Albumin/Globulin Ratio Vitamin B12 TSH 3rd Generation Attending/Attestation - Attestation I have personally seen and examined this patient.: Yes I have fully participated in the care of the patient.: Yes I have reviewed all pertinent clinical information: Yes Notes (Text): This is an addendum to GI progress report dictated by Ingris Mccartney APN.The patient was seen and examined earlier. Medical records, lab studies, imagings were reviewed. Last 24 hours events reviewed. Agreed with the above treatment plan as outlined in Ingris Mccartney APN's notes the with the addition of the following on examination abdomen soft no tenderness. Patient does not have any asterixis at the time of examination. Patient's girlfriend was at bedside patient has a history of hepatitis C Would continue the empiric therapy with his Xifaxan or possibly hepatic encephalopathy #2 is probably left the could be multifactorial etiology drug- induced and a congeation also to be considered 04/14/17 21:12
--- NOTE | 2017-04-14 16:26 | PN ---
DATE: 04/14/2017 SUBJECTIVE: The patient is in bed, in no acute distress, was seen early this morning. He is still confused. He did not recognize me, does not know with year it is. He does not know where he is. OBJECTIVE: VITAL SIGNS: On exam, temperature is 98, blood pressure is 150/80, respiratory rate of 20 and heart rate of 88. EXAMINATION OF HEENT: Unremarkable. NECK: Supple. LUNGS: Have decreased breath sounds. HEART EXAM: Normal S1 and S2. ABDOMEN EXAMINATION: Soft, nontender. LABORATORY EXAMINATION: Reveals a white count of 8.3, hemoglobin of 10 and platelets of 151. Chemistries reveal a BUN of 17 and creatinine of 0.8. LFTs are elevated and urinalysis is noted. Microbiology reveals the blood cultures and urine cultures are all negative. REVIEW OF ORDERS: Reveals the patient to be on vancomycin. MRI of the brain is still pending. CAT scan of the head reveals chronic changes and encephalomalacia in the left lower lobe and left temporal lobe, no acute findings. Dr. Bill Leslie's progress note is appreciated. He feels the patient is suffering from delirium, and we will continue to follow and continue the vancomycin. We will follow with you. ASSESSMENT AND PLAN: This is a 67-year-old male who was seen early this morning with a history of coronary artery disease, hypertension, migraine, chronic obstructive lung disease, diabetes, hyperlipidemia, methicillin-resistant Staphylococcus aureus bacteremia, diskitis, status post amputation of the fifth ray and presenting with acute change in mental status and delirium, currently being treated for corynebacterium osteomyelitis, day #16 of 28 days and waiting for MRI. Roel English MD
--- NOTE | 2017-04-14 17:16 | PN ---
DATE: SUBJECTIVE: The patient is a 67-year-old male who was admitted to the hospital yesterday early in the a.m. due to severe confusion and agitation. He subsequently had continued episodes of agitation and confusion. During the day yesterday and last night, I reviewed the chart and spoke with nursing staff. The patient had a CT scan of the head yesterday revealed chronic encephalomalacia in the left temporal lobe. No other findings reported. The patient's current mental status today reveals that he is awake. He has one-to-one sitter. He is totally confused, disoriented to all spheres except person. His recent and remote memories are impaired. He is awake. He is alert. His thought process is very confabulatory and circumstantial. His judgement and insight are very poor. The patient denies hallucinations or suicidal ideation, although he is unpredictable at this time. He is not agitated but has severe confusion. CURRENT MEDICATIONS: Include lorazepam 0.5 mg IVPB q.4 hours p.r.n. which had one dose yesterday. He is receiving Glucophage and heparin. He is receiving methadone 10 mg q.i.d. and Norvasc 5 mg daily. He is on insulin protocol. He has not received any injections of insulin. Lipitor 40 mg daily. The patient is receiving Pepcid and vancomycin 1 g IVPB q.12 hours. He is on vitamin B1 of 100 mg q.8 hours. The patient is receiving multivitamins, Glucophage, and Risperdal 0.5 mg b.i.d. and at bedtime. LABORATORY DATA: The patient's current laboratory data; he has had no growth after 24 hours in urine or blood. He has CBC reveals a white count of 8300, hemoglobin of 10.8, and platelet count 151,000. His metabolic profile, electrolytes, BUN, creatinine, and estimated GFR all normal. Random glucose 130. Calcium 9.0, total bilirubin 1.4, AST 87, ALT 66, and alkaline phosphatase is normal. His TSH is normal. Albumin is 3.7. Of note, the patient's electrocardiogram, which was done yesterday morning revealed heart rate of 64, QTc interval 509 milliseconds, he has normal sinus rhythm, left anterior fascicular block, right bundle-branch block, bifascicular block, and possible old inferior infarct. The patient had consultation from learning operations specialist and infectious disease consultants. He has an impression by the learning operations specialist stable angina, coronary artery disease, and history of coronary artery bypass graft. PHYSICAL EXAMINATION: VITAL SIGNS: The patient's current vital signs; his blood pressure 152/83, pulse 84, respirations 20 per minute, and is afebrile. IMPRESSION: He has acute delirium. 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 He has a history of chronic obstructive pulmonary disease and coronary artery bypass graft. He has a history of currently being treated for osteomyelitis and he is status post amputation of fifth left toe. He has hyperlipidemia, peripheral vascular disease, stable angina, and possible toxic metabolic encephalopathy exacerbated by temporal lobe encephalomalacia. PLAN: The patient is awaiting an MRI scan. I will increase Risperdal to 1 mg b.i.d. and 2 mg at bedtime, we will add lorazepam 0.5 mg .b.i.d. and 1 mg at bedtime and I will continue to monitor mental status. We would continue one-to-one sitter for the patient's safety. Jatinder Coulter MD MTDHodan
[2017-04-15] MEDS: Multivitamin With Minerals Tab PO SCH (08:15)
--- NOTE | 2017-04-15 08:25 | HP ---
REASON FOR ADMISSION: Acute change in mental status. HISTORY OF PRESENT ILLNESS: This is a 67-year-old male with history of coronary artery disease, bypass; peripheral vascular disease; also history of right foot surgery, with recent metatarsal amputation of the fifth metatarsal and being on antibiotic IV Zosyn and Zyvox. The patient came in because the nurse called me that he has acute change in mental status. He is behaving erratically and irrationally. He is a little bit aggressive, so the patient brought in to ER for evaluation to [facility], was admitted for observation and workup. There was no fever reported. There was no any new medications. The patient, apparently, after I spoke with the nurse a few hours later from the admissions, she responded and she found that the patient was taken methadone on his own, but he has more methadone with him because he may took extra. The other options, the patient started on multiple medications could be also contributing factors to his change in mental status. The patient at this time; there was no fall, no trauma to the head, no fevers, no chills, no nausea or vomiting, no diarrhea, no abdominal pain, and no headaches according to the information we could get from him or reported from the [facility]. The patient is currently on methadone from years and he is getting it for his chronic back pain and has been stable for years on 70 mg daily, 40 in the morning and 30 in the evening. The patient is also taking Klonopin 1 mg twice a day. He was taking 3 mg before, but we decreased it to 1 mg twice a day. PAST MEDICAL HISTORY: As mentioned before, he does have osteomyelitis, surgery of the right foot. He has history of coronary artery disease, peripheral vascular disease, bradycardia, asymptomatic heart rate of around 55 to 50, hypercholesterolemia, diabetes type 2, controlled well. ALLERGIES: NO KNOWN ALLERGIES. SOCIAL HISTORY: He quit drinking years ago. He also quit smoking years ago. He lives in a senior citizen building with his girlfriend. His son is supportive to him and the family is supportive to him. REVIEW OF SYSTEMS: Cannot be obtained, the patient's mental status does not allow. PHYSICAL EXAMINATION: GENERAL: The patient was seen on the floor. He seems confused, disoriented to place, time and person, but doesn't seem to be in any acute distress. He is just talking irrational and does not make any sense, but he does moves all upper extremity and lower extremity when I talk to him. VITAL SIGNS: Temperature 97.5; heart rate 88; blood pressure initially was 168/86, now 171/100; respirations 18; saturating 98% to 99% on room air. HEENT: His head and neck no JVD, no thyromegaly. CHEST: Clear. CARDIAC: First sound and second sound normal. ABDOMEN: Soft, nontender. EXTREMITIES: There is no edema but the right foot is wrapped with the gauze. NEUROLOGIC: His mental status is disoriented to time, place and person, but he moves all extremities. LABORATORY DATA: Could not get a CT because of his behavior, but his labs shows white count normal 9.6, hemoglobin 11.5, hematocrit 35.7, and platelets 169. Chemistry; sodium 139, potassium 5.4, chloride 99, bicarb 29, BUN 19, creatinine 0.9, blood sugar 120, total bilirubin 1.6, AST 106, ALT 64, alkaline phosphatase 103, total CPK 696 and rest of albumin and globulin are normal. Vitamin D level 49. His ammonia level is 9. IMPRESSION AND PLAN: This is a 67-year-old male being on medications that worked and he needs methadone and Klonopin, recent antibiotic for cellulitis. The patient had acute changes in mental status, looks more, toxic, metabolic encephalopathy. He does move all extremities. Plan is to get the CT . Psych consult, spoke with him. He already put the patient on Geodon injection, Risperdal. Also, I did call the [facility] for medication. He did not receive the night before using methadone and has been given small dose of methadone 20 mg twice a day to prevent any withdrawal to see where he is and question whether he took any on his own or not is unclear from his outpatient medications. At this time, we will continue to observe the patient, get neurology consult, infectious disease consultation to reevaluate the medication and also get a cardiology consult. We will monitor blood pressure. We hold off on the medication except methadone. We will continue in lower dose just in case any drug interactions that increase methadone level or increase its effect like Zyvox may be, although it is not contraindicated that it may increase the effect on methadone. We will be watchful for that and right now, he is off of Zyvox and started on vancomycin and we will continue follow up on his case. Urine drug screen, we will try, the patient is uncooperative, cannot get a urine sample. However, I have discussed with nurses about getting urine drug screen. We will continue follow up. Tate Villa MD
[2017-04-15] MEDS: Vancomycin 1gm in NS 250ml 1 GM/250 ML BAG IVPB SCH ×2 (09:45→21:49)
--- NOTE | 2017-04-15 10:31 | CP.PCM.PN ---
<Ingris Mccartney - Last Filed: 04/15/17 10:31> Subjective - Date & Time of Evaluation Date of Evaluation: 04/15/17 Time of Evaluation: 10:27 - Subjective Subjective: S&E at bedside, chart reviewed, awake and alert but remains confused. Not agitated at this time. No reports of N/V or abdominal pain. No overt GI bleeding. Objective - Vital Signs/Intake and Output Vital Signs (last 24 hours): Temp Pulse Resp BP Pulse Ox 98 F 67 18 139/87 95 04/15/17 08:54 04/15/17 09:44 04/15/17 08:54 04/15/17 09:44 04/15/17 08:54 Intake and Output: 04/15/17 04/15/17 06:59 18:59 Intake Total 850 Output Total 700 Balance 150 - Medications Medications: Current Medications Amlodipine Besylate (Norvasc) 5 mg PO DAILY [facility] Last Admin: 04/15/17 09:44 Dose: 5 mg Aspirin (Ecotrin) 81 mg PO DAILY [facility] Atorvastatin Calcium (Lipitor) 40 mg PO DIN [facility] Last Admin: 04/14/17 17:56 Dose: 40 mg Famotidine (Pepcid) 40 mg PO HS [facility] Last Admin: 04/14/17 21:24 Dose: 40 mg Heparin Sodium (Porcine) (Heparin) 5,000 units SC Q8 [facility] PRN Reason: Protocol Last Admin: 04/15/17 05:43 Dose: 5,000 units Vancomycin HCl (Vancomycin 1gm) 1 gm in 250 mls @ 167 mls/hr IVPB Q12 [facility] PRN Reason: Protocol Stop: 04/27/17 22:01 Last Admin: 04/15/17 09:45 Dose: 167 mls/hr Insulin Human Regular (Humulin R Low) 0 units SC ACHS [facility] PRN Reason: Protocol Last Admin: 04/14/17 22:23 Dose: Not Given Lorazepam (Ativan) 0.5 mg IVP Q4H PRN; Protocol PRN Reason: Anxiety Last Admin: 04/15/17 08:21 Dose: 0.5 mg Lorazepam (Ativan) 1 mg PO HS [facility] Last Admin: 04/14/17 21:24 Dose: 1 mg Lorazepam (Ativan) 0.5 mg PO BID [facility] Last Admin: 10/12/17 09:44 Dose: 0.5 mg Metformin HCl (Glucophage) 500 mg PO DAILY [facility] Last Admin: 04/15/17 09:43 Dose: 500 mg Methadone HCl (Methadone) 30 mg PO BID [facility] Last Admin: 04/15/17 09:44 Dose: 30 mg Multivitamins/Minerals (Therapeutic-M Tab) 1 tab PO 0800 [facility] Last Admin: 04/15/17 08:15 Dose: 1 tab Rifaximin (Xifaxan) 550 mg PO BID [facility] PRN Reason: Protocol Last Admin: 04/15/17 09:43 Dose: 550 mg Risperidone (Risperdal Tab) 2 mg PO HS [facility] Last Admin: 04/14/17 22:59 Dose: 2 mg Risperidone (Risperdal Tab) 1 mg PO 0800,1600 [facility] Last Admin: 04/15/17 08:14 Dose: 1 mg Thiamine HCl (Vitamin B1 Tab) 100 mg PO Q8 [facility] Last Admin: 04/15/17 05:43 Dose: 100 mg - Labs Labs: 04/14/17 07:22 04/14/17 07:22 PT 12.0 Seconds (9.9-11.8) H 04/13/17 06:05 INR 1.11 (0.93-1.08) H 04/13/17 06:05 APTT 29.2 Seconds (23.7-30.8) 04/13/17 06:05 - Constitutional Appears: No Acute Distress - Eye Exam Eye Exam: Normal appearance. absent: Scleral icterus - ENT Exam ENT Exam: Mucous Membranes Moist - Neck Exam Neck Exam: Normal Inspection - Respiratory Exam Respiratory Exam: NORMAL BREATHING PATTERN. absent: Respiratory Distress - Cardiovascular Exam Cardiovascular Exam: +S1, +S2 - GI/Abdominal Exam GI & Abdominal Exam: Soft, Normal Bowel Sounds. absent: Guarding, Tenderness, Organomegaly, Rebound - Extremities Exam Extremities Exam: absent: Calf Tenderness - Neurological Exam Neurological Exam: Alert, Altered, Awake - Skin Skin Exam: Dry, Warm Assessment and Plan - Assessment and Plan (Free Text) Assessment: Assessment: Altered mental status, differentials to consider is delerium verses hepatic encephalopathy, ammonia level was less than 9 Chronic hepatitis C, Elevated liver enzymes, recent abdominal ultrasound was 03/2017 show fatty liver , history of cholecystectomy, differentials to consider:medication induced, infectious hepatitis, hepatic congestion Elevated CPK Recent 5th toe amputation for osteomyelitis History of diabetes mellitus History of hypertension History of coronary artery disease History of COPD Plan: Trend liver enzymes Continue GI prophylaxis Patient is on methadone Avoid hepatotoxic medication On vancomycin IV On DVT prophylaxis Diet as tolerated continue emperic Xiafaxin Pending MRI of the brain Psych, neurology follow-up Seen and discussed with Dr. Edouard. <Megan Edouard V - Last Filed: 04/15/17 22:48> Objective - Vital Signs/Intake and Output Vital Signs (last 24 hours): Temp Pulse Resp BP Pulse Ox 98 F 67 18 139/87 95 04/15/17 08:54 04/15/17 09:44 04/15/17 08:54 04/15/17 09:44 04/15/17 08:54 - Medications Medications: Current Medications Amlodipine Besylate (Norvasc) 5 mg PO DAILY [facility] Last Admin: 04/15/17 09:44 Dose: 5 mg Aspirin (Ecotrin) 81 mg PO DAILY [facility] Last Admin: 04/15/17 10:59 Dose: 81 mg Atorvastatin Calcium (Lipitor) 40 mg PO DIN [facility] Last Admin: 04/15/17 18:28 Dose: 40 mg Famotidine (Pepcid) 40 mg PO HS [facility] Last Admin: 04/15/17 21:48 Dose: 40 mg Heparin Sodium (Porcine) (Heparin) 5,000 units SC Q8 [facility] PRN Reason: Protocol Last Admin: 04/15/17 21:48 Dose: 5,000 units Vancomycin HCl (Vancomycin 1gm) 1 gm in 250 mls @ 167 mls/hr IVPB Q12 [facility] PRN Reason: Protocol Stop: 04/27/17 22:01 Last Admin: 04/15/17 21:49 Dose: 167 mls/hr Insulin Human Regular (Humulin R Low) 0 units SC ACHS [facility] PRN Reason: Protocol Last Admin: 04/15/17 18:29 Dose: Not Given Lorazepam (Ativan) 0.5 mg IVP Q4H PRN; Protocol PRN Reason: Anxiety Last Admin: 04/15/17 08:21 Dose: 0.5 mg Lorazepam (Ativan) 1 mg PO HS [facility] Last Admin: 04/15/17 21:48 Dose: 1 mg Metformin HCl (Glucophage) 500 mg PO DAILY [facility] Last Admin: 04/15/17 09:43 Dose: 500 mg Methadone HCl (Methadone) 30 mg PO BID [facility] Last Admin: 04/15/17 18:28 Dose: 30 mg Multivitamins/Minerals (Therapeutic-M Tab) 1 tab PO 0800 [facility] Last Admin: 04/15/17 08:15 Dose: 1 tab Rifaximin (Xifaxan) 550 mg PO BID [facility] PRN Reason: Protocol Last Admin: 04/15/17 18:28 Dose: 550 mg Risperidone (Risperdal Tab) 2 mg PO HS [facility] Last Admin: 04/15/17 22:04 Dose: Not Given Risperidone (Risperdal Tab) 1 mg PO 0800,1600 [facility] Last Admin: 04/15/17 18:29 Dose: Not Given Thiamine HCl (Vitamin B1 Tab) 100 mg PO Q8 [facility] Last Admin: 04/15/17 21:48 Dose: 100 mg - Labs Labs: 04/14/17 07:22 04/14/17 07:22 PT 12.0 Seconds (9.9-11.8) H 04/13/17 06:05 INR 1.11 (0.93-1.08) H 04/13/17 06:05 APTT 29.2 Seconds (23.7-30.8) 04/13/17 06:05 Attending/Attestation - Attestation I have personally seen and examined this patient.: Yes I have fully participated in the care of the patient.: Yes I have reviewed all pertinent clinical information, including history, physical exam and plan: Yes Notes (Text): This is an addendum to GI progress report dictated by Ingris Mccartney APN.The patient was seen and examined earlier. Medical records, lab studies, imagings were reviewed. Last 24 hours events reviewed. Agreed with the above treatment plan as outlined in Ingris Mccartney APN's notes the with the addition of the following on examination abdomen soft no tenderness Questionable asterixis On empiric therapy with the Xifaxan will continue that on a level normal LFTs shows downward trend 04/15/17 22:42
[2017-04-15] MEDS: Insulin Reg-LOW-Coverage SC SCH ×4 (10:57→23:15)
[2017-04-15 12:59] LABS: ALB/GLOB RATIO 1.1 (1.1-1.8); BILIRUBIN,DIRECT 0.3 mg/dL (0.0-0.4); TOTAL PROTEIN 6.8 g/dL (5.8-8.3)
--- NOTE | 2017-04-15 15:18 | PN ---
DATE: SUBJECTIVE: The patient is a 67-year-old male, currently being treated for delirium, etiology of which is unclear. His mental status reveals that he was much more drowsy and over sedated. I reviewed the list of medications. He is now receiving 30 mg of methadone in addition to his other psychotropic medicines, which include lorazepam 0.5 mg b.i.d. and 1 mg at bedtime, p.r.n. lorazepam q. 4 hours which he had a dose at 8:21 this morning. He is also on heparin, Pepcid. therapeutic vitamins, Glucophage, , vitamin B1, Ecotrin. The patient apparently was up at 4:00 a.m., talking to himself on 04/14/2017. PHYSICAL EXAMINATION: VITAL SIGNS: Blood pressure is 139/87, pulse 67, afebrile, respirations 18 per minute, O2 saturation is 95% on room air. LABORATORY DATA: Only new laboratory report is a glucose of 136. The patient is being followed by Infectious Disease and Neurology. Infectious Disease's impression reveals the patient has a history of methicillin-resistant Staphylococcus aureus bacteremia, diskitis along with status post amputation of fifth toe. The patient also is being treated for osteomyelitis. IMPRESSION: Delirium, now of this patient. Patient is on methadone maintenance for chronic pain with history of osteomyelitis. The patient has a history of acute delirium, coronary artery disease, hypertension, chronic obstructive pulmonary disease, diabetes mellitus, hyperlipidemia, status post amputation of toe. PLAN: Would lower dose of methadone to 20 mg b.i.d. from 30 mg. We will stop Ativan during the daytime and we will continue Risperdal. We will increase dose of Risperdal to 3 mg at bedtime and 1 mg b.i.d. I discussed management with nursing staff, told to withhold any psychotropic medicine if the patient appeared somewhat over sedated or drowsy. We will continue to monitor mental status. Jatinder Coulter MD
--- NOTE | 2017-04-15 18:33 | PN ---
DATE: 04/15/2017 SUBJECTIVE: The patient is in bed in no acute distress and nontoxic, however, continues to be confused. PHYSICAL EXAMINATION VITAL SIGNS: Temperature is 98, blood pressure is 130/90, respiratory of 18, heart rate of 76. HEENT: Unremarkable. NECK: Supple. LUNGS: Decreased breath sounds. HEART: Normal S1, S2. ABDOMEN: Soft and nontender. No organomegaly. No rebound or guarding. No masses. LABORATORY EXAMINATION: Reveals a white count of 8.3, hemoglobin of 10, platelets of 161. Urinalysis is noted and microbiology reveals the blood cultures are negative, urine cultures are negative. Examination of foot appears to be a clean wound on the right foot. The left foot is a pressure ulcer. RECOMMENDATIONS: Review of medication reveals the patient vancomycin is given on 10:00 a.m. and 10:00 p.m., we will order a vancomycin trough level for tomorrow morning at 09:00 a.m. an hour before 10:00 a.m. dose slowly, further recommendations. The patient's creatinine at this time is 0.8. Roel English MD cc:
--- NOTE | 2017-04-15 20:11 | PN ---
CARDIOLOGY FOLLOWUP DATE: 04/15/2017 SUBJECTIVE: The patient remains lethargic. No distress reported from the nurses. PHYSICAL EXAMINATION: VITAL SIGNS: Blood pressure 139/87 and heart rates in the 60s. NECK: Negative JVD. LUNGS: Without rales. HEART: S1 and S2. EXTREMITIES: Status post surgery in the lower extremities. LABORATORY DATA: Hemoglobin is 10.8. Chemistries; the liver functions are mildly elevated. IMPRESSION: 1. Altered mental status likely due to the medication combination. 2. Stable angina. 3. Coronary artery disease. 4. History of coronary artery bypass surgery. 5. Diabetes mellitus. 6. Peripheral vascular disease. 7. Chronic obstructive pulmonary disease. Given these findings, the patient's cardiac status remained stable at this time. Leif Oleary MD
[2017-04-16 07:17] LABS: HEMATOCRIT 34.1 % (42.0-52.0); MEAN CELL VOLUME 84.4 fl (80.0-105.0); MEAN CORPUSCULAR HEMOGLOBIN 26.7 pg (25.0-35.0); MEAN CORPUSCULAR HGB CONC 31.7 g/dl (31.0-37.0); MEAN PLATELET VOLUME 9.7 fl (7.0-11.0); RED CELL DISTRIBUTION WIDTH 16.9 % (11.5-14.5); WHITE BLOOD COUNT 7.9 10^3/ul (4.5-11.0)
[2017-04-16 07:35] LABS: ALB/GLOB RATIO 1.1 (1.1-1.8); ALKALINE PHOSPHATASE 101 U/L (38-126); ALT/SGPT 73 U/L (7-56); AST/SGOT 63 U/L (17-59); BILIRUBIN,DIRECT 0.6 mg/dL (0.0-0.4); BILIRUBIN,TOTAL 1.5 mg/dL (0.2-1.3); BLOOD UREA NITROGEN 13 mg/dL (7-21); CALCIUM 9.2 mg/dL (8.4-10.5); CARBON DIOXIDE 32 mmol/L (21-33); CHLORIDE 97 mmol/L (95-110); GFR AFRICAN-AMERICAN > 60; GLUCOSE,RANDOM 120 mg/dL (70-110); POTASSIUM 3.8 mmol/L (3.6-5.0); SODIUM 137 mmol/L (132-148); TOTAL PROTEIN 7.4 g/dL (5.8-8.3)
[2017-04-16] MEDS: Insulin Reg-LOW-Coverage SC SCH ×3 (08:38→17:20)
[2017-04-16] MEDS: Multivitamin With Minerals Tab PO SCH (09:27)
[2017-04-16] MEDS: Vancomycin 1gm in NS 250ml 1 GM/250 ML BAG IVPB SCH ×2 (09:31→21:59)
--- NOTE | 2017-04-16 12:19 | CP.PCM.PN ---
<Ingris Mccartney - Last Filed: 04/16/17 12:19> Subjective - Date & Time of Evaluation Date of Evaluation: 04/16/17 Time of Evaluation: 10:05 - Subjective Subjective: Seen and examined at the bedside earlier today, the chart was reviewed. Patient 's fiance is at the bedside and he is out of bed to chair. He is awake and alert but remains confused. He does report some abdominal discomfort towards left upper abdomen but no acute distress. He reports he has not had a bowel movement the past few days. No reports of overt GI bleed, nausea, vomiting. Objective - Vital Signs/Intake and Output Vital Signs (last 24 hours): Temp Pulse Resp BP Pulse Ox 98.4 F 87 20 145/81 99 04/16/17 07:00 04/16/17 07:00 04/16/17 07:00 04/16/17 09:28 04/16/17 07:00 - Medications Medications: Current Medications Amlodipine Besylate (Norvasc) 5 mg PO DAILY [facility] Last Admin: 04/16/17 09:28 Dose: 5 mg Aspirin (Ecotrin) 81 mg PO DAILY [facility] Last Admin: 04/16/17 09:27 Dose: 81 mg Atorvastatin Calcium (Lipitor) 40 mg PO DIN [facility] Last Admin: 04/15/17 18:28 Dose: 40 mg Famotidine (Pepcid) 40 mg PO HS [facility] Last Admin: 04/15/17 21:48 Dose: 40 mg Heparin Sodium (Porcine) (Heparin) 5,000 units SC Q8 [facility] PRN Reason: Protocol Last Admin: 04/16/17 06:35 Dose: 5,000 units Vancomycin HCl (Vancomycin 1gm) 1 gm in 250 mls @ 167 mls/hr IVPB Q12 [facility] PRN Reason: Protocol Stop: 04/27/17 22:01 Last Admin: 04/16/17 09:31 Dose: 167 mls/hr Insulin Human Regular (Humulin R Low) 0 units SC ACHS [facility] PRN Reason: Protocol Last Admin: 04/16/17 08:38 Dose: Not Given Lactulose (Enulose) 20 gm PO ONCE ONE Stop: 04/16/17 12:14 Lorazepam (Ativan) 0.5 mg IVP Q4H PRN; Protocol PRN Reason: Anxiety Last Admin: 04/15/17 08:21 Dose: 0.5 mg Lorazepam (Ativan) 1 mg PO HS [facility] Last Admin: 04/15/17 21:48 Dose: 1 mg Metformin HCl (Glucophage) 500 mg PO DAILY [facility] Last Admin: 04/16/17 09:28 Dose: 500 mg Methadone HCl (Methadone) 30 mg PO BID [facility] Last Admin: 04/16/17 09:29 Dose: 30 mg Multivitamins/Minerals (Therapeutic-M Tab) 1 tab PO 0800 [facility] Last Admin: 04/16/17 09:27 Dose: 1 tab Rifaximin (Xifaxan) 550 mg PO BID [facility] PRN Reason: Protocol Last Admin: 04/16/17 09:27 Dose: 550 mg Risperidone (Risperdal Tab) 2 mg PO HS [facility] Last Admin: 04/15/17 22:04 Dose: Not Given Risperidone (Risperdal Tab) 1 mg PO 0800,1600 [facility] Last Admin: 04/16/17 09:30 Dose: 1 mg Thiamine HCl (Vitamin B1 Tab) 100 mg PO Q8 [facility] Last Admin: 04/16/17 06:35 Dose: 100 mg - Labs Labs: 04/16/17 07:10 04/16/17 07:10 PT 12.0 Seconds (9.9-11.8) H 04/13/17 06:05 INR 1.11 (0.93-1.08) H 04/13/17 06:05 APTT 29.2 Seconds (23.7-30.8) 04/13/17 06:05 - Constitutional Appears: No Acute Distress, Confused - Eye Exam Eye Exam: Normal appearance (Damaris). absent: Scleral icterus - ENT Exam ENT Exam: Mucous Membranes Moist (. In her to avoid) - Neck Exam Neck Exam: Normal Inspection - Respiratory Exam Respiratory Exam: NORMAL BREATHING PATTERN. absent: Respiratory Distress (she is here today but) - Cardiovascular Exam Cardiovascular Exam: +S1, +S2 - GI/Abdominal Exam GI & Abdominal Exam: Soft, Tenderness (at the first valve of double), Normal Bowel Sounds. absent: Guarding (H), Rebound (E) - Extremities Exam Extremities Exam: absent: Calf Tenderness, Pedal Edema - Neurological Exam Neurological Exam: Alert, Awake. absent: Oriented x3 - Skin Skin Exam: Dry, Warm Assessment and Plan - Assessment and Plan (Free Text) Assessment: Assessment: Altered mental status, differentials to consider is delerium verses hepatic encephalopathy, Chronic hepatitis C, Elevated liver enzymes, recent abdominal ultrasound was 03/2017 show fatty liver , history of cholecystectomy, differentials to consider:medication induced, infectious hepatitis, hepatic congestion Elevated CPK Recent 5th toe amputation for osteomyelitis History of diabetes mellitus History of hypertension History of coronary artery disease History of COPD Plan: Trend liver enzymes Continue GI prophylaxis Patient is on methadone Avoid hepatotoxic medication On vancomycin IV On DVT prophylaxis Diet as tolerated continue empiric Xiafaxin give a dose of Lactulose for consitpation pending MRI brain Psych, neurology follow-up Seen and discussed with Dr. Edouard. <Megan Edouard V - Last Filed: 04/16/17 21:09> Objective - Vital Signs/Intake and Output Vital Signs (last 24 hours): Temp Pulse Resp BP Pulse Ox 98.4 F 87 20 145/81 99 04/16/17 07:00 04/16/17 07:00 04/16/17 07:00 04/16/17 09:28 04/16/17 07:00 Intake and Output: 04/16/17 04/17/17 18:59 06:59 Intake Total 600 Output Total 200 Balance 400 - Medications Medications: Current Medications Amlodipine Besylate (Norvasc) 5 mg PO DAILY [facility] Last Admin: 04/16/17 09:28 Dose: 5 mg Aspirin (Ecotrin) 81 mg PO DAILY [facility] Last Admin: 04/16/17 09:27 Dose: 81 mg Atorvastatin Calcium (Lipitor) 40 mg PO DIN [facility] Last Admin: 04/16/17 18:35 Dose: 40 mg Enoxaparin Sodium (Lovenox) 40 mg SC DAILY [facility] PRN Reason: Protocol Famotidine (Pepcid) 40 mg PO HS [facility] Last Admin: 04/15/17 21:48 Dose: 40 mg Vancomycin HCl (Vancomycin 1gm) 1 gm in 250 mls @ 167 mls/hr IVPB Q12 [facility] PRN Reason: Protocol Stop: 04/27/17 22:01 Last Admin: 04/16/17 09:31 Dose: 167 mls/hr Insulin Human Regular (Humulin R Low) 0 units SC ACHS [facility] PRN Reason: Protocol Last Admin: 04/16/17 17:20 Dose: Not Given Lorazepam (Ativan) 0.5 mg IVP Q4H PRN; Protocol PRN Reason: Anxiety Last Admin: 04/15/17 08:21 Dose: 0.5 mg Lorazepam (Ativan) 1 mg PO HS [facility] Last Admin: 04/15/17 21:48 Dose: 1 mg Metformin HCl (Glucophage) 500 mg PO DAILY [facility] Last Admin: 04/16/17 09:28 Dose: 500 mg Methadone HCl (Methadone) 30 mg PO BID [facility] Last Admin: 04/16/17 18:36 Dose: 30 mg Multivitamins/Minerals (Therapeutic-M Tab) 1 tab PO 0800 [facility] Last Admin: 04/16/17 09:27 Dose: 1 tab Rifaximin (Xifaxan) 550 mg PO BID [facility] PRN Reason: Protocol Stop: 04/17/17 10:00 Last Admin: 04/16/17 18:35 Dose: 550 mg Risperidone (Risperdal Tab) 2 mg PO HS [facility] Last Admin: 04/15/17 22:04 Dose: Not Given Risperidone (Risperdal Tab) 1 mg PO 0800,1600 [facility] Last Admin: 04/16/17 18:37 Dose: 1 mg Thiamine HCl (Vitamin B1 Tab) 100 mg PO Q8 [facility] Last Admin: 04/16/17 14:00 Dose: Not Given - Labs Labs: 04/16/17 07:10 04/16/17 07:10 PT 12.0 Seconds (9.9-11.8) H 04/13/17 06:05 INR 1.11 (0.93-1.08) H 04/13/17 06:05 APTT 29.2 Seconds (23.7-30.8) 04/13/17 06:05 Attending/Attestation - Attestation I have personally seen and examined this patient.: Yes I have fully participated in the care of the patient.: Yes I have reviewed all pertinent clinical information, including history, physical exam and plan: Yes Notes (Text): This is an addendum to GI progress report dictated by Ingris Mccartney APN.The patient was seen and examined earlier. Medical records, lab studies, imagings were reviewed. Last 24 hours events reviewed. Agreed with the above treatment plan as outlined in Ingris Mccartney APN's notes the with the addition of the following Patient is more alert now tolerating the diet On examination abdomen soft no tenderness Patient is planned to be discharged to [facility] tomorrow Would discontinue Xifaxan LFTs shows improving trend Recommend follow-up with LFTs and elected treatment for hep C 04/16/17 21:08
--- NOTE | 2017-04-16 14:17 | PN ---
DATE: 04/16/2017 CARDIOLOGY FOLLOWUP SUBJECTIVE: The patient's mental status is much improved with a change of his medications. PHYSICAL EXAMINATION: VITAL SIGNS: Stable. NECK: Negative JVD. LUNGS: Without rales. HEART: With S1, S2. EXTREMITIES: Without change. LABORATORY DATA: Hemoglobin is 10.8. Chemistries, glucose is 120. IMPRESSION: 1. Altered mental status likely due to his multiple combination of medications. 2. Stable angina. 3. History of coronary artery bypass surgery. 4. Severe chronic obstructive pulmonary disease. 5. Peripheral vascular disease. 6. Diabetes mellitus. RECOMMENDATIONS: Given these findings, we will continue to cut down on his combination methadone and pain medications. Hemodynamically, he is doing well. Leif Oleary MD
--- NOTE | 2017-04-16 14:54 | PN ---
DATE: 04/16/2017 SUBJECTIVE: The patient is in bed in no acute distress, nontoxic. OBJECTIVE: VITAL SIGNS: Temperature is 98, blood pressure is 140/80, respiratory rate of 22. HEENT: Unremarkable. NECK: Supple. LUNGS: Decreased breath sounds. HEART: Normal S1, S2. ABDOMEN: Soft, nontender. LABORATORY EXAMINATION: Reveals a white count of 7.9, hemoglobin of 10, platelets of 138. Chemistries reveals a BUN of 13, creatinine of 0.7. LFTs are noted. Urinalysis is noted and vancomycin trough of 13.5. Serology is nonreactive. Microbiology reveals the blood cultures are no growth. Urine cultures are no growth and the patient is on vancomycin. ASSESSMENT AND PLAN: This is a 67-year-old male, who was seen earlier today in 572, bed 1, who is much, much improved today. His mental status, he knows what year it is and who he is, although he is not quite sure where he is. Overall, his mental status is greatly improved with a history of coronary artery disease, hypertension, migraine, history of chronic obstructive lung disease, diabetes, hyperlipidemia, history of methicillin-resistant Staphylococcus aureus bacteremia, diskitis. The patient is status post amputation of fifth ray and presenting with acute change in mental status, treated with Corynebacterium osteomyelitis. Today is day number 18 of 28 days, vancomycin trough level is adequate. We will check on sed rate and C-reactive protein. Roel English MD
--- NOTE | 2017-04-16 20:19 | PN ---
SUBJECTIVE: The patient is a 67-year-old male, currently being treated for acute delirium. He has been up until today, highly confused, totally agitated with reality and incoherent. His mental status today seems somewhat improved. He was able to carry on a more rational conversation. His recent memory is quite impaired, although today he is oriented to month, year and place, but not day. He still has some impairment in his judgement and understanding the nature of his current hospitalization. He does state that up until yesterday he was seeing black objects moving along the young, but none today. He denies any suicidal ideation. He denies any inner agitation. The patient does not appear to be having currently any adverse effects from the psychotropic medications. His psychotropic medications include Risperdal 1 mg b.i.d. and 2 mg at bedtime and lorazepam 1 mg p.o. at bedtime. LABORATORY DATA: The patient's current laboratory data, white count is , his hemoglobin is 10.9 and his platelet count is 138,000. His metabolic profile is all normal except for total bilirubin of 1.5, direct bilirubin of 0.6, AST is 63, ALT is 73. Rest of profile is totally within normal range. Reviewed the consultants reports. The cardiac consultant in ergonomics and safety feels the patient is safe from a hemodynamic basis. The patient's GI staff points to history of chronic hepatitis C, elevated liver enzymes, fatty liver, history of cholecystectomy, recent fifth toe amputation. The patient's infectious disease consultant in ergonomics and safety saw the patient today and points to improving clinical condition. He has a history of recent methicillin-resistant Staphylococcus bacteremia and diskitis. The patient is on day #8 of 28 days of vancomycin. The patient's other medications include Norvasc, Lipitor; he has an order for p.r.n. IV Ativan, which he last received yesterday morning at 08:20; receiving heparin, Pepcid, vancomycin therapy, vitamins, Glucophage, rifaximin, methadone 30 mg twice a day, vitamin B1, Ecotrin and Enulose, which he had 1 dose. PHYSICAL EXAMINATION: VITAL SIGNS: Blood pressure is 145/81, pulse 87, he is afebrile and respirations 20 per minute. IMPRESSION: The patient has slowly resolving delirium, possibly secondary to hepatic encephalopathy and reaction of antibiotics which include Zyvox and reaction with methadone. He has chronic pain syndrome. He has recent osteomyelitis with amputation of his fifth toe. He has recent Staphylococcus aureus bacteremia. 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 PLAN: We will continue to monitor mental status. We will continue Risperdal 1 mg b.i.d. and 2 mg at bedtime for psychotic symptomatology and Ativan 1 mg at bedtime. Jatinder Coulter MD
[2017-04-17] MEDS: Insulin Reg-LOW-Coverage SC SCH ×2 (06:24→08:00)
[2017-04-17 08:09] LABS: BILIRUBIN,DIRECT 0.4 mg/dL (0.0-0.4); BILIRUBIN,TOTAL 1.1 mg/dL (0.2-1.3); TOTAL PROTEIN 6.4 g/dL (5.8-8.3)
[2017-04-17 09:03] VITALS: BP 157/85; PULSE 98; RESP 22; TEMP 97.7; O2SAT 95
[2017-04-17] MEDS: Vancomycin 1gm in NS 250ml 1 GM/250 ML BAG IVPB SCH (09:23)
[2017-04-17] MEDS: Multivitamin With Minerals Tab PO SCH (09:28)
[2017-04-17] MEDS ORDERED: Enoxaparin 40 mg Syringe SC SCH (10:00)
--- NOTE | 2017-04-17 14:57 | PN ---
DATE: 04/17/2017 SUBJECTIVE: The patient is in bed, in no acute distress, nontoxic. PHYSICAL EXAMINATION: VITAL SIGNS: Temperature is 97, blood pressure is 150/80, respiratory rate of 22. HEENT: Unremarkable. NECK: Supple. LUNGS: Decreased breath sounds. HEART: Normal S1 and S2. ABDOMEN: Soft and nontender. LABORATORY EXAMINATION: Reveals a white count of 7.9, sed rate is 20. C-reactive protein is greater than 15. LFTs are elevated. The creatinine is at 0.7 and urinalysis is noted. ANCA trough level is 13.5. RPR is negative. Microbiology reveals the blood cultures are negative and urine cultures are negative. ASSESSMENT AND PLAN: He is a 67-year-old male who was seen earlier today with much better mental status, and who has a history of coronary artery disease, hypertension, migraine, history of chronic obstructive lung disease, hyperlipidemia with methicillin-resistant Staphylococcus aureus bacteremia with discitis, and he had a laminectomy in the past. In the last admission, he had amputation of the fifth ray, presenting with acute change in mental status. At this time point, the patient will have complete therapy for Corynebacterium osteomyelitis. Today is day #19 of 28 days. Currently on vancomycin. I recommend CBC, SMA-18, sed rate, C-reactive protein, vancomycin trough level once weekly, and we will follow with you. Roel English MD
--- NOTE | 2017-04-19 14:13 | PN ---
DATE: 04/14/2017 SUBJECTIVE: The patient is feeling better. He got Ativan p.o. at night and he is on methadone 30 mg b.i.d., seems doing well. No chest pain, no short of breath, feels better. His mental status is improving gradually. He knows me, he knows where he is now, he knows the year and the month, improved much better. He has no fever, no cough, no chest pain, no other complaints. PHYSICAL EXAMINATION: On 04/14 is as follows; VITAL SIGNS: Temperature 98.1, heart rate 87, blood pressure 131/81, respiration 20, saturation 98%. HEAD AND NECK: Normal. No JVD. No thyromegaly. CHEST: Clear. Good air entry. CARDIAC: First sound and second sound normal. ABDOMEN: Soft and nontender. EXTREMITIES: No edema. Right foot is wrapped with the dressing. NEUROLOGIC: He moves all extremities. His mental status is improving. He becomes more alert when he is alert, more oriented to the place and the person and also the time, to some extent improving than before. IMPRESSION AND PLAN: 1. Acute change in mental status, probably could be meds related. Neurologically, CT of the head was negative, seen by psychiatry Dr. Coulter. We will continue current management. The patient seems better. 2. Right foot cellulitis, osteomyelitis, continue vancomycin. The patient is currently off antibiotics. 3. Hypertension, diabetes and hypercholesterolemia. Continue other medications. Continue gastrointestinal and deep venous thrombosis prophylaxis. The patient seems to be doing better. Tate Villa MD
--- NOTE | 2017-04-19 16:02 | PN ---
DATE: 04/15/2017 SUBJECTIVE: The patient is improving. He is feeling better. He still get periods of confusion, but is getting improving. He has no chest pain. No distress. He is eating. He is visited by his son. Still periods of confusion comes, but is less frequent. He has no other complaints. PHYSICAL EXAMINATION: VITAL SIGNS: Temperature 98, heart rate 56, blood pressure 121/75, respirations 22, and saturation 95% on room air. HEAD AND NECK: Normal. No JVD. No thyromegaly. CHEST: Clear. Good air entry. CARDIAC: First sound and second sound normal. ABDOMEN: Soft and nontender. EXTREMITIES: No edema. NEUROLOGICAL: He is moving all extremities. He is alert and awake. He is oriented to person, place, and time occasionally, somehow he knows the months and the year, does not know the date, but better than before. LABORATORY STUDIES: The patient had white count of 7.9, hemoglobin 10.8, hematocrit 34.1, and platelets 138. His ammonia level was normal as mentioned before. He also have blood count, which shows 7.9 white count, hemoglobin 10.8, hematocrit 34.1, and platelets 134. His sed rate was 20. Also the patient had urinalysis that was negative. He also had a toxicology for vancomycin was 30.5, a little bit high and also RPR was done and was negative. IMPRESSION AND PLAN: Acute change in mental status probably due to drug interaction may be related, the patient use psychotropic drugs, creeping up better. Continue current treatment. He is getting Ativan, he is getting Risperdal. Continue methadone 30 mg twice a day less than before. The patient is off Zyvox, and is continue vancomycin. The patient still on and off, we will continue to monitor, but he is stable, we can take . Tate Villa MD
--- NOTE | 2017-04-20 08:19 | DS ---
HISTORY OF PRESENT ILLNESS: The patient came in with acute change of mental status, seen by Neurologist and Psychiatrist. Medication adjustment done. The patient has been improving clinically, still gets periods of confusions, but better than before, he is off of wrist splints, comfortable, stable and no chest pain, no respiratory distress. PHYSICAL EXAMINATION: VITAL SIGNS: Stable. Blood pressure 110/70, heart rate 56, respirations 18, temperature 98. HEAD AND NECK: Normal. No JVD or thyromegaly. CHEST: Clear. Good air entry. CARDIAC: First sound and second sound normal. ABDOMEN: Soft, nontender. EXTREMITIES: No edema. Right foot is wrapped. IMPRESSION AND PLAN: 1. Cellulitis right foot with osteomyelitis, status post metatarsal bone removal. Continue vancomycin postop 14 days. Discussed with Infectious Doctor, Dr. English. 2. Acute change of mental status, improving clinically. We will continue psychiatric medications as recommended, Ativan at night. Continue Risperdal 1 mg also at night. We will continue methadone as it is, 30 mg b.i.d., less than before and hopefully, we will cut down more. The patient seems no pain, no distress. 3. Hypertension, diabetes, hypercholesterolemia, coronary artery disease. Continue current medications. We will followup. The patient getting aspirin. Continue current metformin. I will continue medications and followup . Tate Villa MD
== END 2017-04-17 13:45 | DRG 441 ==
LOC: ED 05:31 → ERH 08:02 → 5RSO 09:45
PROVIDERS: ADMIT Internal Medicine; ATTEND Internal Medicine
DX: K72.90 Hepatic failure, unspecified without coma (principal); G92 Toxic encephalopathy; E11.69 Type 2 diabetes mellitus with other specified complication; G93.89 Other specified disorders of brain; M86.60 Other chronic osteomyelitis, unspecified site; L03.115 Cellulitis of right lower limb; F11.23 Opioid dependence with withdrawal; I45.2 Bifascicular block; R41.0 Disorientation, unspecified; K76.0 Fatty (change of) liver, not elsewhere classified; J44.9 Chronic obstructive pulmonary disease, unspecified; B18.2 Chronic viral hepatitis C; E78.00 Pure hypercholesterolemia, unspecified; E78.5 Hyperlipidemia, unspecified; F17.210 Nicotine dependence, cigarettes, uncomplicated; F91.9 Conduct disorder, unspecified; G89.4 Chronic pain syndrome; I10 Essential (primary) hypertension; I25.118 Atherosclerotic heart disease of native coronary artery with other forms of angina pectoris; I73.9 Peripheral vascular disease, unspecified; Z78.1 Physical restraint status; Z79.899 Other long term (current) drug therapy; Z86.14 Personal history of Methicillin resistant Staphylococcus aureus infection; Z87.01 Personal history of pneumonia (recurrent); Z90.49 Acquired absence of other specified parts of digestive tract; Z91.19 Patient's noncompliance with other medical treatment and regimen; K29.70 Gastritis, unspecified, without bleeding; Z95.1 Presence of aortocoronary bypass graft; Z95.5 Presence of coronary angioplasty implant and graft; Z89.421 Acquired absence of other right toe(s); F32.89 Other specified depressive episodes; R00.1 Bradycardia, unspecified; F10.11 Alcohol abuse, in remission; G43.909 Migraine, unspecified, not intractable, without status migrainosus; M46.40 Discitis, unspecified, site unspecified; R27.8 Other lack of coordination

== ENCOUNTER 2017-10-06 14:48 | Inpatient (IN) | payer MEDICARE, OTHER ==
[2017-10-06 15:10] VITALS: BMI 25.4
[2017-10-06 16:21] LABS: BASO # 0.03 K/mm3 (0.0-2.0); BASO % 0.3 % (0.0-3.0); EOS # 0.3 (0.0-0.7); EOS % 2.5 % (1.5-5.0); GRAN # 7.71 (1.4-6.5); GRAN % 71.4 % (50.0-68.0); HEMOGLOBIN 11.1 g/dL (14.0-18.0); LYMPH % 18.7 % (22.0-35.0); MEAN CELL VOLUME 82.4 fl (80.0-105.0); MEAN CORPUSCULAR HEMOGLOBIN 25.7 pg (25.0-35.0); MEAN CORPUSCULAR HGB CONC 31.2 g/dl (31.0-37.0); MEAN PLATELET VOLUME 9.9 fl (7.0-11.0); MONO # 0.8 (0.1-0.6); MONO % 7.1 % (1.0-6.0); RBC 4.32 10^6/uL (3.5-6.1); RED CELL DISTRIBUTION WIDTH 17.1 % (11.5-14.5); WHITE BLOOD COUNT 10.8 10^3/ul (4.5-11.0)
[2017-10-06 16:38] LABS: CALCIUM 9.4 mg/dL (8.4-10.5); GFR AFRICAN-AMERICAN > 60; GFR NON-AFRICAN AMERICAN > 60
[2017-10-06 16:46] LABS: ALBUMIN 3.8 g/dL (3.0-4.8); ALT/SGPT 45 U/L (7-56); AST/SGOT 59 U/L (17-59); BLOOD UREA NITROGEN 19 mg/dL (7-21)
[2017-10-06] MEDS ORDERED: Vancomycin 1gm in NS 250ml 1 GM/250 ML BAG IVPB STA (17:00)
[2017-10-06] MEDS ORDERED: Piperacillin/Tazobact 3.375 gm 100 ML IVPB STA (17:01)
--- NOTE | 2017-10-06 17:08 | ED PDOC ---
Arrival/HPI - General Chief Complaint: Wound Check Time Seen by Provider: 10/06/17 15:14 Historian: Patient - History of Present Illness Narrative History of Present Illness (Text): 10/06/17 17:04 67yo male with Past medical history of hypertension, hyperlipidemia, Diabetes and chronic foot wound referred to Emergency department by his [employer] Supervisor for admission. Patient notes that he saw his [employer] Supervisor, Dr. Rich today for his routine wound check and pus was expressed. She referred him to Emergency department to be admitted for IV antibiotics. He denies fever, pain, chills, nausea, chest pain, dizziness, any other complaint. Past Medical History - Provider Review Nursing Documentation Reviewed: Yes - Infectious Disease Hx of Infectious Diseases: None - Tetanus Immunization Tetanus Immunization: Unknown - Cardiac Hx Cardiac Disorders: Yes Hx Hypertension: Yes - Pulmonary Hx Respiratory Disorders: Yes Hx Pneumonia: Yes - Neurological Hx Neurological Disorder: No - HEENT Hx HEENT Disorder: No - Renal Hx Renal Disorder: No Hx Kidney Stones: No - Endocrine/Metabolic Hx Endocrine Disorders: Yes Hx Diabetes Mellitus Type 1: Yes - Hematological/Oncological Hx Blood Disorders: No - Integumentary Hx Dermatological Disorder: Yes (RIGHT 2ND TOE AND 5TH TOE AMPUTATED) - Musculoskeletal/Rheumatological Hx Musculoskeletal Disorders: Yes - Gastrointestinal Hx Gastrointestinal Disorders: Yes Hx Gall Bladder Disease: Yes - Genitourinary/Gynecological Hx Genitourinary Disorders: No - Psychiatric Hx Psychophysiologic Disorder: Yes Hx Anxiety: Yes Hx Depression: Yes (pt reports periods of sadness) Hx Substance Use: No - Surgical History Hx Appendectomy: Yes Hx Cholecystectomy: Yes Hx Coronary Artery Bypass Graft: Yes Hx Coronary Stent: Yes (X 3) - Anesthesia Hx Anesthesia: Yes Hx Anesthesia Reactions: No Hx Malignant Hyperthermia: No - Suicidal Assessment Feels Threatened In Home Enviroment: No Family/Social History - Physician Review Nursing Documentation Reviewed: Yes Family/Social History: Unknown Family HX Smoking Status: Former Smoker Hx Alcohol Use: Yes Frequency of alcohol use: Socially Hx Substance Use: No Allergies/Home Meds Allergies/Adverse Reactions: Allergies No Known Allergies Allergy (Verified 10/06/17 15:10) Home Medications: Home Meds Medication Instructions Recorded Confirmed Aspirin [Aspirin Chewable] 81 mg PO DAILY 08/06/17 10/06/17 Atorvastatin [Lipitor] 40 mg PO HS 08/06/17 10/06/17 Clopidogrel [Plavix] 75 mg PO DAILY 08/06/17 10/06/17 Metoprolol Succinate [Toprol XL] 50 mg PO DAILY 08/06/17 10/06/17 SITagliptin [Januvia] 100 mg PO DAILY 08/06/17 10/06/17 Methadone [Methadone] 10 mg PO DAILY 10/06/17 10/06/17 Review of Systems - Physician Review All systems were reviewed & negative as marked: Yes - Review of Systems Constitutional: Normal Eyes: Normal ENT: Normal Respiratory: Normal Cardiovascular: Normal Gastrointestinal: Normal Genitourinary Male: Normal Musculoskeletal: Normal Skin: Cellulitis (right great toe) Neurological: Normal Endocrine: Normal Hemo/Lymphatic: Normal Psychiatric: Normal Physical Exam Vital Signs Reviewed: Yes Vital Signs Temp Pulse Resp BP Pulse Ox 10/06/17 17:36 78 18 118/69 95 10/06/17 15:19 98.1 F 51 L 20 120/71 95 Temperature: Afebrile Blood Pressure: Normal Pulse: Regular Respiratory Rate: Normal Appearance: Positive for: Well-Appearing, Non-Toxic, Comfortable Pain Distress: None Mental Status: Positive for: Alert and Oriented X 3 - Systems Exam Head: Present: Atraumatic, Normocephalic Pupils: Present: PERRL Extroacular Muscles: Present: EOMI Conjunctiva: Present: Normal Mouth: Present: Moist Mucous Membranes Neck: Present: Normal Range of Motion Respiratory/Chest: Present: Clear to Auscultation, Good Air Exchange. No: Respiratory Distress, Accessory Muscle Use Cardiovascular: Present: Regular Rate and Rhythm, Normal S1, S2. No: Murmurs Abdomen: No: Tenderness, Distention, Peritoneal Signs Back: Present: Normal Inspection Upper Extremity: Present: Normal Inspection. No: Cyanosis, Edema Lower Extremity: Present: Other (clean dressing noted to right great toe). No: Edema, NORMAL PULSES (Decreased right pedis), Tenderness Neurological: Present: GCS=15, CN II-XII Intact, Speech Normal Skin: Present: Warm, Dry, Normal Color. No: Rashes Psychiatric: Present: Alert, Oriented x 3, Normal Insight, Normal Concentration Medical Decision Making ED Course and Treatment: 10/07/17 00:20 Pt in Emergency department for stated history. He was hemodynamically stable in Emergency department. Lab was unremarkable Foot xray - Negative for osteo Chest X-ray NAD EKG Sinus rc with nonspecific Twave abnormality at 46bpm - comparable to previous EKG Dr. Villa is on the suspension list, Dr. Gr accepted pt to her service. - Lab Interpretations Lab Results: 10/06/17 15:50 10/06/17 15:50 Lab Results 10/06/17 17:40: PT 12.2, INR 1.07, APTT 24.6 L 10/06/17 15:50: ESR 45 H 10/06/17 15:50: Sodium 139, Potassium 5.5 H, Chloride 98, Carbon Dioxide 33, Anion Gap 13, BUN 19, Creatinine 0.9, Est GFR ( Amer) > 60, Est GFR (Non- Af Amer) > 60, Random Glucose 83, Calcium 9.4, Total Bilirubin 1.4 H, AST 59 D , ALT 45, Alkaline Phosphatase 112, Total Protein 7.8, Albumin 3.8, Globulin 4.0 , Albumin/Globulin Ratio 1.0 L 10/06/17 15:50: WBC 10.8 D, RBC 4.32, Hgb 11.1 L, Hct 35.6 L, MCV 82.4 D, MCH 25.7, MCHC 31.2, RDW 17.1 H, Plt Count 183, MPV 9.9, Gran % 71.4 H, Lymph % ( Auto) 18.7 L, Catron % (Auto) 7.1 H, Eos % (Auto) 2.5, Baso % (Auto) 0.3, Gran # 7.71 H, Lymph # (Auto) 2.0, Catron # (Auto) 0.8 H, Eos # (Auto) 0.3, Baso # (Auto ) 0.03 - RAD Interpretation Radiology Orders: 10/06/17 15:56 FOOT RIGHT 3 VIEWS ROUTINE [RAD] Stat 10/06/17 15:58 CHEST ONE VIEW [RAD] Stat - Medication Orders Current Medication Orders: Aspirin (Aspirin Chewable) 81 mg PO DAILY EZE Atorvastatin Calcium (Lipitor) 40 mg PO HS EZE Last Admin: 10/06/17 22:42 Dose: 40 mg Clopidogrel Bisulfate (Plavix) 75 mg PO DAILY EZE Vancomycin HCl (Vancomycin 1gm) 1 gm in 250 mls @ 167 mls/hr IVPB Q12H EZE PRN Reason: Protocol Piperacillin Sod/Tazobactam Sod (Zosyn 3.375 In Ns 100ml) 100 mls @ 200 mls/hr IVPB Q6 EZE PRN Reason: Protocol Stop: 10/07/17 00:29 Last Admin: 10/06/17 22:42 Dose: 200 mls/hr eMAR Start Stop Document 10/06/17 22:42 CO (Rec: 10/06/17 22:43 CO [id number]) Intravenous Solution Start Date 10/06/17 Start Time 22:42 Insulin Human Regular (Humulin R Low) 0 units SC ACHS EZE PRN Reason: Protocol Metoprolol Succinate (Toprol Xl) 50 mg PO DAILY EZE Discontinued Medications Vancomycin HCl (Vancomycin 1gm) 1 gm in 250 mls @ 167 mls/hr IVPB STAT STA PRN Reason: Protocol Stop: 10/06/17 18:29 Last Admin: 10/06/17 19:04 Dose: 167 mls/hr eMAR Start Stop Document 10/06/17 19:04 RD (Rec: 10/06/17 19:04 RD [id number]) Intravenous Solution Start Date 10/06/17 Start Time 19:04 End Date 10/06/17 End time 20:34 Total Infusion Time 90 Piperacillin Sod/Tazobactam Sod (Zosyn 3.375 In Ns 100ml) 100 mls @ 200 mls/hr IVPB STAT STA PRN Reason: Protocol Stop: 10/06/17 17:30 Last Admin: 10/06/17 18:20 Dose: 200 mls/hr eMAR Start Stop Document 10/06/17 18:20 RD (Rec: 10/06/17 18:28 RD [id number]) Intravenous Solution Start Date 10/06/17 Start Time 18:20 End Date 10/06/17 End time 18:50 Total Infusion Time 30 Disposition/Present on Arrival - Present on Arrival Any Indicators Present on Arrival: No History of DVT/PE: No History of Uncontrolled Diabetes: No Urinary Catheter: No History of Decub. Ulcer: No History Surgical Site Infection Following: None - Disposition Have Diagnosis and Disposition been Completed?: Yes Diagnosis: Wound infection, Cellulitis Disposition: HOSPITALIZED Disposition Time: 17:10 Patient Problems: Current Active Problems Problem Status Onset Cellulitis Acute Wound infection Acute Condition: FAIR
--- NOTE | 2017-10-06 17:21 | RAD ---
PROCEDURE: Right Foot Radiographs. HISTORY: Great toe COMPARISON: 03/29/2017. FINDINGS: BONES: Status post surgical amputation of the 2nd and 5th toes and distal 2nd and 5th metatarsals. There is diffuse bone demineralization. There is no acute fracture. There is a prominent plantar calcaneal spur. There is no acute fracture or bone destruction in the great toe. There is diffuse bone demineralization. JOINTS: There is subluxation of the 2nd and 3rd metatarsophalangeal joints. SOFT TISSUES: Normal. OTHER FINDINGS: None. IMPRESSION: No acute fracture or bone destruction in the great toe. Stable postsurgical changes in the foot as described above.
--- NOTE | 2017-10-06 17:22 | RAD ---
PROCEDURE: CHEST RADIOGRAPH, 1 VIEW HISTORY: admission COMPARISON: 04/13/2017. FINDINGS: LUNGS: The lungs are well inflated and clear. PLEURA: No pneumothorax or pleural fluid seen. CARDIOVASCULAR: The heart is normal in size. Status post CABG OSSEOUS STRUCTURES: Postsurgical changes of posterior spinal fixation. VISUALIZED UPPER ABDOMEN: Normal. OTHER FINDINGS: None. IMPRESSION: No active pulmonary disease.
[2017-10-06 18:11] LABS: INR 1.07 (0.93-1.08); PARTIAL THROMBOPLASTIN TIME 24.6 Seconds (25.1-36.5); PROTHROMBIN TIME 12.2 SECONDS (9.4-12.5)
--- NOTE | 2017-10-06 20:04 | CP.PCM.HP ---
<Bartolome Raymondtreytabatha - Last Filed: 10/06/17 19:59> History of Present Illness - History of Present Illness History of Present Illness: Katey Raymond DO PGY1 - IM H&P for Dr. Schafer CC: Send by material lister for possible osteomyelitis HPI: 67 yo M with PMH of CAD s/p stents and CABG, DM, HTN, and HLD presented to the ED, sent by his material lister for possible osteomyelitis of the right great toe. Patient reports that he has been caring for his toe wound for the past 3-4 months, but seepage and wound has not improved, and so he presented to his material lister today, where he was told there was a deep infection, and that he should go to the ER for IV antibiotics. Patient denies pain. Reports nonhealing wound and persistent drainage. Patient denies fever, chills, nausea, vomiting, diarrhea, constipation, chest pain, shortness of breath, abdominal pain. Remainder of 12 point ROS was obtained and was negative except as above. PMH: CAD s/p stents and CABG, DM, HTN, and HLD PSH: CABG 2006, T spine fusion 2015, laparoscopic cholecystectomy 2014, partial amputation R 2nd and 5th digits 2015 Soc: Tobacco, prior smoker, quit 6 months ago, 40 PYH; Prior alcohol abuse, quit 2015; Illicits - tried intranasal cocaine many years ago FHx: Heart disease in grandmother; CVA in mother ALL: NKDA PMD: [facility] Patient also takes methadone, 60mg daily, from "[facility]" - [phone] Present on Admission - Present on Admission Any Indicators Present on Admission: Yes History Surgical Site Infection Following: Orthopedic Procedures (Ortho spine surgery - superficial infection) Past Patient History - Infectious Disease Hx of Infectious Diseases: None - Tetanus Immunizations Tetanus Immunization: Unknown - Past Social History Smoking Status: Former Smoker - CARDIAC Hx Cardiac Disorders: Yes Hx Hypertension: Yes - PULMONARY Hx Respiratory Disorders: Yes Hx Pneumonia: Yes - NEUROLOGICAL Hx Neurological Disorder: No - HEENT Hx HEENT Problems: No - RENAL Hx Chronic Kidney Disease: No Hx Kidney Stones: No - ENDOCRINE/METABOLIC Hx Endocrine Disorders: Yes Hx Diabetes Mellitus Type 1: Yes - HEMATOLOGICAL/ONCOLOGICAL Hx Blood Disorders: No - INTEGUMENTARY Hx Dermatological Problems: Yes (RIGHT 2ND TOE AND 5TH TOE AMPUTATED) - MUSCULOSKELETAL/RHEUMATOLOGICAL Hx Musculoskeletal Disorders: Yes - GASTROINTESTINAL Hx Gastrointestinal Disorders: Yes Hx Gall Bladder Disease: Yes - GENITOURINARY/GYNECOLOGICAL Hx Genitourinary Disorders: No - PSYCHIATRIC Hx Psychophysiologic Disorder: Yes Hx Anxiety: Yes Hx Depression: Yes (pt reports periods of sadness) Hx Substance Use: No - SURGICAL HISTORY Hx Appendectomy: Yes Hx Cholecystectomy: Yes Hx Coronary Artery Bypass Graft: Yes Hx Coronary Stent: Yes (X 3) - ANESTHESIA Hx Anesthesia: Yes Hx Anesthesia Reactions: No Hx Malignant Hyperthermia: No Meds Allergies/Adverse Reactions: Allergies Allergy/AdvReac Type Severity Reaction Status Date / Time No Known Allergies Allergy Verified 10/06/17 15:10 Physical Exam - Constitutional Appears: Non-toxic, No Acute Distress - Head Exam Head Exam: ATRAUMATIC, NORMOCEPHALIC - Eye Exam Eye Exam: EOMI, Normal appearance, PERRL - ENT Exam ENT Exam: Mucous Membranes Moist - Neck Exam Neck exam: Positive for: Normal Inspection - Respiratory Exam Respiratory Exam: Clear to Auscultation Bilateral, NORMAL BREATHING PATTERN Additional comments: Bronchial breath sounds - Cardiovascular Exam Cardiovascular Exam: RRR, +S1, +S2 - GI/Abdominal Exam GI & Abdominal Exam: Normal Bowel Sounds, Soft. absent: Firm, Guarding, Rebound , Rigid, Tenderness - Extremities Exam Extremities exam: Positive for: pedal pulses present. Negative for: calf tenderness, pedal edema Additional comments: Right foot warm, s/p 2nd and 5th digit amputation Left foot cool to touch Good pedal pulses bilaterally Skin of bilateral lower legs dark, with chronic venous stasis changes - Neurological Exam Neurological exam: Alert, CN II-XII Intact, Oriented x3 - Psychiatric Exam Psychiatric exam: Normal Affect, Normal Mood - Skin Skin Exam: Dry, Intact, Normal Color Results - Vital Signs Recent Vital Signs: Last Vital Signs Temp 98.1 F 10/06/17 15:19 Pulse 78 10/06/17 17:36 Resp 18 10/06/17 17:36 BP 118/69 10/06/17 17:36 Pulse Ox 95 10/06/17 17:36 - Labs Result Diagrams: 10/06/17 15:50 10/06/17 15:50 Assessment & Plan - Assessment and Plan (Free Text) Assessment: 67 yo M with PMH of CAD s/p stents and CABG, DM, HTN, and HLD presented to the ED, sent by his material lister for possible osteomyelitis of the right great toe. Possible right great toe osteomyelitis - Right foot XR shows s/p surgical amputation of 2nd and 5th toes and distal metatarsals, diffuse demineralization, and subluxation of the 2nd and 3rd metatarsalphalangeal joints - Cannot do MRI, patient has metal in spine - Afebrile, no leukocytosis, no SIRS - Ordered wound cultures and blood cultures; ordered ESR and CRP - Patient started on Vanc and Zosyn in the ER; continue Vanc and Zosyn pending cultures and possible amputation - Requested podiatric and ID consults; appreciate recs h/o CAD s/p stents and CABG - Continue ASA, Plavix, statin, BB - Heart healthy, moderate carb consistent diet DM - Hold oral anti-hyperglycemics - Start sliding scale insulin, low, with accucheck ACHS - Heart healthy, moderate carb consistent diet HTN - BP stable; continue home BB h/o Chronic pain on Methadone - Patient reportedly takes methadon 60mg daily - Will call clinic ([phone]) in the AM and confirm dose DVT Ppx: SCDs while in bed <Blanca Schafer - Last Filed: 10/06/17 22:24> Results - Vital Signs Recent Vital Signs: Last Vital Signs Temp 98.1 F 10/06/17 15:19 Pulse 78 10/06/17 17:36 Resp 18 10/06/17 17:36 BP 118/69 10/06/17 17:36 Pulse Ox 95 10/06/17 17:36 - Labs Result Diagrams: 10/06/17 15:50 10/06/17 15:50 Attending/Attestation - Attestation I have personally seen and examined this patient.: Yes I have fully participated in the care of the patient.: Yes I have reviewed all pertinent clinical information: Yes Notes (Text): 10/06/17 22:24 Patient was seen when he was in bed # 19 in the ER. Agree with history , physical examination, assessment and plan.
--- NOTE | 2017-10-06 20:48 | CARD ---
APPROVED REPORT EKG Measurement Heart [id number] <Conclusion> Marked sinus bradycardia Nonspecific intraventricular block Nonspecific T wave abnormality Abnormal ECG
[2017-10-06] MEDS: Piperacillin/Tazobact 3.375 gm 100 ML IVPB SCH (22:42)
[2017-10-07] MEDS: Piperacillin/Tazobact 3.375 gm 100 ML IVPB SCH ×4 (00:57→18:26)
--- NOTE | 2017-10-07 01:56 | CP.PCM.PCO ---
Physician Communication Note - Physician Communication Note Physician Communication Note: Chart reviewed. [place] bell.
[2017-10-07] MEDS: Vancomycin 1gm in NS 250ml 1 GM/250 ML BAG IVPB SCH ×2 (05:42→19:01)
[2017-10-07 07:09] LABS: BASO # 0.02 K/mm3 (0.0-2.0); BASO % 0.3 % (0.0-3.0); EOS # 0.3 (0.0-0.7); EOS % 5.1 % (1.5-5.0); GRAN # 4.51 (1.4-6.5); GRAN % 67.7 % (50.0-68.0); HEMOGLOBIN 10.4 g/dL (14.0-18.0); LYMPH # 1.2 (1.2-3.4); LYMPH % 17.8 % (22.0-35.0); MEAN CELL VOLUME 81.7 fl (80.0-105.0); MEAN CORPUSCULAR HEMOGLOBIN 26.1 pg (25.0-35.0); MEAN CORPUSCULAR HGB CONC 31.9 g/dl (31.0-37.0); MEAN PLATELET VOLUME 9.9 fl (7.0-11.0); MONO # 0.6 (0.1-0.6); MONO % 9.1 % (1.0-6.0); RBC 3.99 10^6/uL (3.5-6.1); RED CELL DISTRIBUTION WIDTH 17.2 % (11.5-14.5); WHITE BLOOD COUNT 6.7 10^3/ul (4.5-11.0)
[2017-10-07 07:26] LABS: ALB/GLOB RATIO 0.9 (1.1-1.8); ALBUMIN 3.2 g/dL (3.0-4.8); ALT/SGPT 47 U/L (7-56); AST/SGOT 49 U/L (17-59); BLOOD UREA NITROGEN 18 mg/dL (7-21); GFR AFRICAN-AMERICAN > 60; GFR NON-AFRICAN AMERICAN > 60
[2017-10-07] MEDS: Insulin Reg-LOW-Coverage SC SCH ×2 (09:26→18:30)
[2017-10-07] MEDS: Metoprolol Succinate 50 mg XL Tab PO SCH (10:58)
--- NOTE | 2017-10-07 14:09 | CP.PCM.PN ---
<Katey Raymond - Last Filed: 10/07/17 14:06> Subjective - Date & Time of Evaluation Date of Evaluation: 10/07/17 Time of Evaluation: 07:30 - Subjective Subjective: Katey Raymond DO PGY1 - IM Progress Note Patient seen and examined at bedside. Per nursing staff, no acute events. Patient denies any fever, chills, nausea, vomiting, diarrhea, abdominal pain, foot pain/bleeding. Patient does not want surgical intervention, but has not yet seen the line staker, and has not yet had MRI. Objective - Vital Signs/Intake and Output Vital Signs (last 24 hours): Temp Pulse Resp BP Pulse Ox 97.5 F L 60 20 151/70 H 92 L 10/07/17 06:00 10/07/17 10:58 10/07/17 06:00 10/07/17 10:58 10/07/17 06:00 - Medications Medications: Current Medications Aspirin (Aspirin Chewable) 81 mg PO DAILY [facility] Last Admin: 10/07/17 10:58 Dose: 81 mg Atorvastatin Calcium (Lipitor) 40 mg PO HS [facility] Last Admin: 10/06/17 22:42 Dose: 40 mg Clopidogrel Bisulfate (Plavix) 75 mg PO DAILY [facility] Last Admin: 10/07/17 10:58 Dose: 75 mg Vancomycin HCl (Vancomycin 1gm) 1 gm in 250 mls @ 167 mls/hr IVPB Q12H EZE PRN Reason: Protocol Last Admin: 10/07/17 05:42 Dose: 167 mls/hr Piperacillin Sod/Tazobactam Sod (Zosyn 3.375 In Ns 100ml) 100 mls @ 200 mls/hr IVPB Q6 EZE PRN Reason: Protocol Last Admin: 10/07/17 12:30 Dose: 200 mls/hr Insulin Human Regular (Humulin R Low) 0 units SC ACHS EZE PRN Reason: Protocol Last Admin: 10/07/17 09:26 Dose: Not Given Metoprolol Succinate (Toprol Xl) 50 mg PO DAILY [facility] Last Admin: 10/07/17 10:58 Dose: 50 mg - Labs Labs: 10/07/17 07:00 10/07/17 07:00 PT 12.2 SECONDS (9.4-12.5) 10/06/17 17:40 INR 1.07 (0.93-1.08) 10/06/17 17:40 APTT 24.6 Seconds (25.1-36.5) L 10/06/17 17:40 - Constitutional Appears: Non-toxic, No Acute Distress - Head Exam Head Exam: ATRAUMATIC, NORMOCEPHALIC - Eye Exam Eye Exam: EOMI, Normal appearance, PERRL - ENT Exam ENT Exam: Mucous Membranes Moist - Neck Exam Neck Exam: Normal Inspection - Respiratory Exam Respiratory Exam: Clear to Ausculation Bilateral, NORMAL BREATHING PATTERN - Cardiovascular Exam Cardiovascular Exam: RRR, +S1, +S2 - GI/Abdominal Exam GI & Abdominal Exam: Soft, Normal Bowel Sounds. 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 Possible right great toe osteomyelitis - Right foot XR shows s/p surgical amputation of 2nd and 5th toes and distal metatarsals, diffuse demineralization, and subluxation of the 2nd and 3rd metatarsalphalangeal joints - Per prior record, hardware is MRI safe; ordered MRI of R foot w/wo contrast - Afebrile, no leukocytosis, no SIRS - Wound and blood cultures pending; ESR and CRP moderately elevated - Continue Vanc and Zosyn pending cultures and possible amputation - Requested podiatric and ID consults; appreciate recs h/o CAD s/p stents and CABG - Continue ASA, Plavix, statin, BB - Heart healthy, moderate carb consistent diet DM - Hold oral anti-hyperglycemics - Continue sliding scale insulin, low, with accucheck ACHS - Heart healthy, moderate carb consistent diet HTN - BP mildly elevated today; continue home BB - Will continue to monitor h/o Chronic pain on Methadone - Patient reportedly takes methadon 60mg daily; prescribed by PMD [place] - Spoke to [facility] pharmacy ([phone]) and confirmed dose - Resume home methadone 30mg PO BID DVT Ppx: SCDs while in bed Patient discussed and reviewed with attending, Dr. Bal <Kuldip Bal - Last Filed: 10/07/17 15:28> Objective - Vital Signs/Intake and Output Vital Signs (last 24 hours): Temp Pulse Resp BP Pulse Ox 97.5 F L 60 20 151/70 H 92 L 10/07/17 06:00 10/07/17 10:58 10/07/17 06:00 10/07/17 10:58 10/07/17 06:00 Intake and Output: 10/07/17 10/07/17 06:59 18:59 Intake Total 240 Balance 240 - Medications Medications: Current Medications Aspirin (Aspirin Chewable) 81 mg PO DAILY [facility] Last Admin: 10/07/17 10:58 Dose: 81 mg Atorvastatin Calcium (Lipitor) 40 mg PO HS [facility] Last Admin: 10/06/17 22:42 Dose: 40 mg Clopidogrel Bisulfate (Plavix) 75 mg PO DAILY [facility] Last Admin: 10/07/17 10:58 Dose: 75 mg Vancomycin HCl (Vancomycin 1gm) 1 gm in 250 mls @ 167 mls/hr IVPB Q12H EZE PRN Reason: Protocol Last Admin: 10/07/17 05:42 Dose: 167 mls/hr Piperacillin Sod/Tazobactam Sod (Zosyn 3.375 In Ns 100ml) 100 mls @ 200 mls/hr IVPB Q6 EZE PRN Reason: Protocol Last Admin: 10/07/17 12:30 Dose: 200 mls/hr Insulin Human Regular (Humulin R Low) 0 units SC ACHS EZE PRN Reason: Protocol Last Admin: 10/07/17 09:26 Dose: Not Given Methadone HCl (Methadone) 30 mg PO BID [facility] Metoprolol Succinate (Toprol Xl) 50 mg PO DAILY [facility] Last Admin: 10/07/17 10:58 Dose: 50 mg Pantoprazole Sodium (Protonix Ec Tab) 40 mg PO 0600 [facility] - Labs Labs: 10/07/17 07:00 10/07/17 07:00 PT 12.2 SECONDS (9.4-12.5) 10/06/17 17:40 INR 1.07 (0.93-1.08) 10/06/17 17:40 APTT 24.6 Seconds (25.1-36.5) L 10/06/17 17:40 Attending/Attestation - Attestation I have personally seen and examined this patient.: Yes I have fully participated in the care of the patient.: Yes I have reviewed all pertinent clinical information, including history, physical exam and plan: Yes Notes (Text): 10/07/17 15:27 Medical record note made by the resident after discussion with my direction and input after the patient was personally seen and examined by me. I have reviewed the chart and agree that the record accurately reflects by personal performance of the history, physical exam, data review, and medical decision-making, in the course for the patient. I have also personally directed the plan of care. 67 yo M with PMH of CAD s/p stents and CABG, DM, HTN, and HLD is admitted with right foot diabetic infected big toe ulcer,SP I/D by Podiatry, we will follow up cultures.Continue IV antibiotics as per ID.We will follow up MRI of the foot.
[2017-10-07] MEDS ORDERED: Gadodiamide 287 MG/ML VIAL (15ML) IV ONE (15:25)
--- NOTE | 2017-10-07 16:14 | MRI ---
PROCEDURE: MRI of the right foot with and without contrast HISTORY: r/o Osteomyelitis R great toe COMPARISON: TECHNIQUE: MRI of the right foot was performed with and without IV contrast in multiple planes. 15 cc of Omniscan were injected. FINDINGS: There has been previous amputation of the 2nd through 5th toes and distal metatarsals. There is a moderate amount of marrow edema in the distal 4th metatarsal and minimal marrow edema in the distal 5th metatarsal. There is also enhancement at these locations. There is also subcutaneous edema and enhancement dorsal to the 4th and 5th metatarsals. Findings are suspicious for osteomyelitis. IMPRESSION: Moderate marrow edema and enhancement in the distal 4th metatarsal and mild edema and enhancement in the distal 5th metatarsal suspicious for osteomyelitis
--- NOTE | 2017-10-07 20:08 | CP.PCM.CON ---
History of Present Illness - History of Present Illness History of Present Illness: Infectious Disease Consultation: October 07, 2017 67 yo male sent to [facility] [place] for osteomyelitis of the right great toe. The patient has an extensive medical history that includes AD s/p stents and CABG, DM, HTN, and HLD. The patient has had several hospitalization to [facility]. He was having persistent seepage and drainage from the right great toe. Started on Zosyn and IV Vancomycin for care. PMHx: type 2 diabetes mellitus, CAD, hypertension, dyslipidemia, PVD, chronic venous stasis PSHx: CABG x3 vessels 2006, left 2nd toe resection and 2nd metatarsal resection. T spine fusion 2015. Laproscopic cholecystectomy 2014. Partial ampuation of the right 2 and 5th digits 2015. Allergies: NKDA Social Hx: Hx of tobacco use, alcohol abuse history, denies drug use but is on methadone for lower back pain. Intranasal cocaine use in the past. Active Medications Aspirin (Aspirin Chewable) 81 mg PO DAILY [facility] Last Admin: 10/07/17 10:58 Dose: 81 mg Atorvastatin Calcium (Lipitor) 40 mg PO HS [facility] Last Admin: 10/06/17 22:42 Dose: 40 mg Clonazepam (Klonopin) 1 mg PO BID EZE PRN Reason: Protocol Last Admin: 10/07/17 18:26 Dose: 1 mg Clopidogrel Bisulfate (Plavix) 75 mg PO DAILY [facility] Last Admin: 10/07/17 10:58 Dose: 75 mg Vancomycin HCl (Vancomycin 1gm) 1 gm in 250 mls @ 167 mls/hr IVPB Q12H EZE PRN Reason: Protocol Last Admin: 10/07/17 19:01 Dose: 167 mls/hr Piperacillin Sod/Tazobactam Sod (Zosyn 3.375 In Ns 100ml) 100 mls @ 200 mls/hr IVPB Q6 EZE PRN Reason: Protocol Last Admin: 10/07/17 18:26 Dose: 200 mls/hr Insulin Human Regular (Humulin R Low) 0 units SC ACHS EZE PRN Reason: Protocol Last Admin: 10/07/17 18:30 Dose: Not Given Methadone HCl (Methadone) 30 mg PO BID [facility] Last Admin: 10/07/17 18:23 Dose: 30 mg Metoprolol Succinate (Toprol Xl) 50 mg PO DAILY [facility] Last Admin: 10/07/17 10:58 Dose: 50 mg Pantoprazole Sodium (Protonix Ec Tab) 40 mg PO 0600 [facility] Family Hx: none given ROS: poor healing of right foot. No fevers or chills, no nausea, no vomiting, headaches, dizziness, hearing, vision. No chest pain or abdominal pain. No melena, hematuria, hematemesis, hematochezia. Past Patient History - Infectious Disease Hx of Infectious Diseases: None - Tetanus Immunizations Tetanus Immunization: Unknown - Past Social History Smoking Status: Former Smoker - CARDIAC Hx Cardiac Disorders: Yes Hx Hypertension: Yes - PULMONARY Hx Respiratory Disorders: Yes Hx Pneumonia: Yes - NEUROLOGICAL Hx Neurological Disorder: No - HEENT Hx HEENT Problems: No - RENAL Hx Chronic Kidney Disease: No Hx Kidney Stones: No - ENDOCRINE/METABOLIC Hx Endocrine Disorders: Yes Hx Diabetes Mellitus Type 1: Yes - HEMATOLOGICAL/ONCOLOGICAL Hx Blood Disorders: No - INTEGUMENTARY Hx Dermatological Problems: Yes (RIGHT 2ND TOE AND 5TH TOE AMPUTATED) - MUSCULOSKELETAL/RHEUMATOLOGICAL Hx Musculoskeletal Disorders: Yes - GASTROINTESTINAL Hx Gastrointestinal Disorders: Yes Hx Gall Bladder Disease: Yes - GENITOURINARY/GYNECOLOGICAL Hx Genitourinary Disorders: No - PSYCHIATRIC Hx Psychophysiologic Disorder: Yes Hx Anxiety: Yes Hx Depression: Yes (pt reports periods of sadness) Hx Substance Use: No - SURGICAL HISTORY Hx Appendectomy: Yes Hx Cholecystectomy: Yes Hx Coronary Artery Bypass Graft: Yes Hx Coronary Stent: Yes (X 3) - ANESTHESIA Hx Anesthesia: Yes Hx Anesthesia Reactions: No Hx Malignant Hyperthermia: No Meds Allergies/Adverse Reactions: Allergies Allergy/AdvReac Type Severity Reaction Status Date / Time No Known Allergies Allergy Verified 10/06/17 15:10 - Medications Medications: Current Medications Aspirin (Aspirin Chewable) 81 mg PO DAILY [facility] Last Admin: 10/07/17 10:58 Dose: 81 mg Atorvastatin Calcium (Lipitor) 40 mg PO HS [facility] Last Admin: 10/06/17 22:42 Dose: 40 mg Clonazepam (Klonopin) 1 mg PO BID [facility] PRN Reason: Protocol Last Admin: 10/07/17 18:26 Dose: 1 mg Clopidogrel Bisulfate (Plavix) 75 mg PO DAILY [facility] Last Admin: 10/07/17 10:58 Dose: 75 mg Vancomycin HCl (Vancomycin 1gm) 1 gm in 250 mls @ 167 mls/hr IVPB Q12H [facility] PRN Reason: Protocol Last Admin: 10/07/17 19:01 Dose: 167 mls/hr Piperacillin Sod/Tazobactam Sod (Zosyn 3.375 In Ns 100ml) 100 mls @ 200 mls/hr IVPB Q6 [facility] PRN Reason: Protocol Last Admin: 10/07/17 18:26 Dose: 200 mls/hr Insulin Human Regular (Humulin R Low) 0 units SC ACHS [facility] PRN Reason: Protocol Last Admin: 10/07/17 18:30 Dose: Not Given Methadone HCl (Methadone) 30 mg PO BID [facility] Last Admin: 10/07/17 18:23 Dose: 30 mg Metoprolol Succinate (Toprol Xl) 50 mg PO DAILY [facility] Last Admin: 10/07/17 10:58 Dose: 50 mg Pantoprazole Sodium (Protonix Ec Tab) 40 mg PO 0600 [facility] Physical Exam - Constitutional Appears: Non-toxic, No Acute Distress - Head Exam Head Exam: ATRAUMATIC, NORMOCEPHALIC - Eye Exam Eye Exam: EOMI, PERRL Pupil Exam: NORMAL ACCOMODATION, PERRL - ENT Exam ENT Exam: Mucous Membranes Moist, Normal External Ear Exam, TM's Normal Bilaterally - Respiratory Exam Respiratory Exam: Clear to Auscultation Bilateral, NORMAL BREATHING PATTERN. absent: Rales, Rhonchi, Wheezes - Cardiovascular Exam Cardiovascular Exam: REGULAR RHYTHM, RRR, +S1, +S2 - GI/Abdominal Exam GI & Abdominal Exam: Normal Bowel Sounds, Soft. absent: Distended, Tenderness - Extremities Exam Extremities exam: Positive for: pedal pulses present Additional comments: Right foot warm with +1 edema, s/p 2nd and 5th digit amputation Chronic venous stasis changes. - Neurological Exam Neurological exam: Alert, CN II-XII Intact, Oriented x3 - Psychiatric Exam Psychiatric exam: Normal Affect, Normal Mood - Skin Skin Exam: Dry, Intact, Normal Color Results - Vital Signs Recent Vital Signs: Last Vital Signs Temp 97.7 F 10/07/17 14:00 Pulse 46 L 10/07/17 14:00 Resp 20 10/07/17 14:00 BP 110/64 10/07/17 14:00 Pulse Ox 95 10/07/17 14:00 - Labs Result Diagrams: 10/07/17 07:00 10/07/17 07:00 Labs: Laboratory Results - last 24 hr 10/07/17 10/07/17 10/07/17 07:00 07:00 08:17 WBC 6.7 D RBC 3.99 Hgb 10.4 L Hct 32.6 L MCV 81.7 MCH 26.1 MCHC 31.9 RDW 17.2 H Plt Count 143 MPV 9.9 Gran % 67.7 Lymph % (Auto) 17.8 L [place] % (Auto) 9.1 H Eos % (Auto) 5.1 H Baso % (Auto) 0.3 Gran # 4.51 Lymph # (Auto) 1.2 [place] # (Auto) 0.6 Eos # (Auto) 0.3 Baso # (Auto) 0.02 Sodium 138 Potassium 4.0 Chloride 99 Carbon Dioxide 31 Anion Gap 11 BUN 18 Creatinine 0.9 Est GFR ( Amer) > 60 Est GFR (Non-Af Amer) > 60 POC Glucose (mg/dL) 74 Random Glucose 79 Calcium 9.0 Magnesium 1.9 Total Bilirubin 1.4 H AST 49 ALT 47 Alkaline Phosphatase 106 Total Protein 6.9 Albumin 3.2 Globulin 3.7 Albumin/Globulin Ratio 0.9 L 10/07/17 10/07/17 11:17 16:05 WBC RBC Hgb Hct MCV MCH MCHC RDW Plt Count MPV Gran % Lymph % (Auto) [place] % (Auto) Eos % (Auto) Baso % (Auto) Gran # Lymph # (Auto) [place] # (Auto) Eos # (Auto) Baso # (Auto) Sodium Potassium Chloride Carbon Dioxide Anion Gap BUN Creatinine Est GFR ( Amer) Est GFR (Non-Af Amer) POC Glucose (mg/dL) 161 H 86 Random Glucose Calcium Magnesium Total Bilirubin AST ALT Alkaline Phosphatase Total Protein Albumin Globulin Albumin/Globulin Ratio Assessment & Plan - Assessment and Plan (Free Text) Assessment: 67 yo male with extensive PMHx of CAD s/p stents and CABG, DM, HTN, and HLD sent by prototype fabricator to [facility] [facility] for further evaluation and treatment of the right great toe which is draining. Relatively low ESR from 20 to 45. Patient is already stating that he is refusing surgery before podiaty has evaluated the patient. Multiple hospitalizations for diabetic foot ulcers. Started on Zosyn and IV Vancomycin. May need up to 6 weeks of therapy. Cultures already growing Staph Aureus and gram negative rods. Full identification and sensitivities pending. Supportive care Thank you for allowing me to participate in the care of the patient, we will follow with you.
--- NOTE | 2017-10-07 20:51 | CP.PCM.PN ---
Subjective - Date & Time of Evaluation Date of Evaluation: 10/07/17 Time of Evaluation: 09:45 - Subjective Subjective: pt seen at bedside for hallux wound to the right foot; pt is s/p simple I&D yesterday [facility] for abcess to the hallux; pt states he feels much better since procedure and antibiotics; pt in no distress and resting Objective - Vital Signs/Intake and Output Vital Signs (last 24 hours): Temp Pulse Resp BP Pulse Ox 97.7 F 46 L 20 110/64 95 10/07/17 14:00 10/07/17 14:00 10/07/17 14:00 10/07/17 14:00 10/07/17 14:00 Intake and Output: 10/07/17 10/08/17 18:59 06:59 Intake Total 240 Balance 240 - Medications Medications: Current Medications Aspirin (Aspirin Chewable) 81 mg PO DAILY [facility] Last Admin: 10/07/17 10:58 Dose: 81 mg Atorvastatin Calcium (Lipitor) 40 mg PO HS [facility] Last Admin: 10/06/17 22:42 Dose: 40 mg Clonazepam (Klonopin) 1 mg PO BID [facility] PRN Reason: Protocol Last Admin: 10/07/17 18:26 Dose: 1 mg Clopidogrel Bisulfate (Plavix) 75 mg PO DAILY [facility] Last Admin: 10/07/17 10:58 Dose: 75 mg Vancomycin HCl (Vancomycin 1gm) 1 gm in 250 mls @ 167 mls/hr IVPB Q12H [facility] PRN Reason: Protocol Last Admin: 10/07/17 19:01 Dose: 167 mls/hr Piperacillin Sod/Tazobactam Sod (Zosyn 3.375 In Ns 100ml) 100 mls @ 200 mls/hr IVPB Q6 [facility] PRN Reason: Protocol Last Admin: 10/07/17 18:26 Dose: 200 mls/hr Insulin Human Regular (Humulin R Low) 0 units SC ACHS [facility] PRN Reason: Protocol Last Admin: 10/07/17 18:30 Dose: Not Given Methadone HCl (Methadone) 30 mg PO BID [facility] Last Admin: 10/07/17 18:23 Dose: 30 mg Metoprolol Succinate (Toprol Xl) 50 mg PO DAILY [facility] Last Admin: 10/07/17 10:58 Dose: 50 mg Pantoprazole Sodium (Protonix Ec Tab) 40 mg PO 0600 [facility] - Labs Labs: 10/07/17 07:00 10/07/17 07:00 PT 12.2 SECONDS (9.4-12.5) 10/06/17 17:40 INR 1.07 (0.93-1.08) 10/06/17 17:40 APTT 24.6 Seconds (25.1-36.5) L 10/06/17 17:40 - Additional Findings Additional findings: / palpable pedal pulses TG WNL CFT 3 sec x 3 right foot Neurological shows no sensation to the feet bilateral Skin exam shows a plantar hallux ulcer on the right foot with extension into the lateral portion from the abcess - there is no longer any pus no fluctuance and the wound is much improved since yesterday; there is also a small wound plantar aspect lateral foot with no signs of infection no sinus tract no undermining - this is an area of old amputation for OM last year; no calor no malodor no pus Assessment and Plan - Assessment and Plan (Free Text) Assessment: Abcess right hallux r/o OM hallux Plan: for MrI today C&S done yesterday at wound care center: Gram negative rods and staph aureus ESR 45 CRP 12.3 pt presently on vanco and zosyn - IV antibiotics to continue ID consult pending local care with SSD/dsd daily offweight bearing shoe ordered
[2017-10-08] MEDS: Insulin Reg-LOW-Coverage SC SCH ×5 (01:04→21:39)
[2017-10-08] MEDS: Piperacillin/Tazobact 3.375 gm 100 ML IVPB SCH ×5 (01:07→23:19)
[2017-10-08] MEDS: Pantoprazole 40 mg EC Tab PO SCH (05:21)
[2017-10-08] MEDS: Vancomycin 1gm in NS 250ml 1 GM/250 ML BAG IVPB SCH ×2 (05:23→17:28)
[2017-10-08 07:27] LABS: BASO # 0.03 K/mm3 (0.0-2.0); BASO % 0.5 % (0.0-3.0); EOS # 0.4 (0.0-0.7); GRAN # 3.17 (1.4-6.5); GRAN % 51.9 % (50.0-68.0); HEMOGLOBIN 11.3 g/dL (14.0-18.0); LYMPH # 1.9 (1.2-3.4); LYMPH % 31.5 % (22.0-35.0); MEAN CELL VOLUME 81.8 fl (80.0-105.0); MEAN CORPUSCULAR HEMOGLOBIN 26.1 pg (25.0-35.0); MEAN CORPUSCULAR HGB CONC 31.9 g/dl (31.0-37.0); MEAN PLATELET VOLUME 9.3 fl (7.0-11.0); MONO # 0.6 (0.1-0.6); MONO % 10.1 % (1.0-6.0); RBC 4.33 10^6/uL (3.5-6.1); RED CELL DISTRIBUTION WIDTH 17.1 % (11.5-14.5); WHITE BLOOD COUNT 6.1 10^3/ul (4.5-11.0)
[2017-10-08 09:56] LABS: ALB/GLOB RATIO 0.9 (1.1-1.8); ALBUMIN 3.4 g/dL (3.0-4.8); ALT/SGPT 54 U/L (7-56); AST/SGOT 54 U/L (17-59); BLOOD UREA NITROGEN 19 mg/dL (7-21); CALCIUM 8.7 mg/dL (8.4-10.5); GFR AFRICAN-AMERICAN > 60; GFR NON-AFRICAN AMERICAN > 60
--- NOTE | 2017-10-08 10:47 | PN ---
DATE: SUBJECTIVE: A 67-year-old male, well known to the [facility] wound care team, seen at bedside for continued evaluation and management of a diabetic ulceration on his right hallux and right lateral plantar foot. The patient states he is feeling much better since Dr. Rich performed the incision and drainage of his abscess. He is anxious to go home. The patient's vital signs revealed temperature of 97.5, pulse rate of 55, blood pressure of 154/78, respiratory rate of 18. Laboratory findings reveal white count of 6.1, hemoglobin 11.3, hematocrit of 34.4, platelet count of 143. MRI taken reveals no radiographic evidence of osteomyelitis of either of his ulceration sites. OBJECTIVE: Weakly palpable pedal pulses noted bilaterally. Capillary filling time is delayed on all digits on both feet. The patient cannot detect 5.07 g monofilament wire testing bilaterally. There is noted to be a full-thickness ulceration on the plantar right hallux measures approximately 0.5 x 0.7 x 0.2 cm. Base of the wound is granular with serous drainage. The wound does not probe to tendon or bone. There is no purulence emanating from the wound. There is no longer any underlying abscess formation. There is a more superficial ulceration on the lateral portion of the right foot plantarly, which measures less than 0.3 x 0.3 x 0.2 cm. The base of the ulcer is granular, serous drainage, no purulence, no probing to bone, no abscess formation. ASSESSMENT: Resolving right hallux abscess. Osteomyelitis has been ruled out via MRI. PLAN: The patient's wound was cleansed with normal sterile saline and application of Silvadene and a dry sterile dressing was applied. Off weightbearing shoe was ordered, but has not been delivered. Dr. Larry's note read and appreciated. The patient can be discharged on p.o. antibiotics and follow up in the wound center once he gets his off weightbearing shoe. Kishan Fry DPM
[2017-10-08] MEDS: Metoprolol Succinate 50 mg XL Tab PO SCH (11:09)
[2017-10-08] MEDS: Silver Sulfadiazine 1% Cream (25 gm) TP SCH (11:09)
--- NOTE | 2017-10-08 12:31 | CP.PCM.PN ---
<Katey Raymond - Last Filed: 10/08/17 12:25> Subjective - Date & Time of Evaluation Date of Evaluation: 10/08/17 Time of Evaluation: 07:30 - Subjective Subjective: Katey Mandi DO PGY1 - IM Progress Note Patient seen and examined at bedside. Per nursing staff, no acute events. Patient denies any fever, chills, nausea, vomiting, diarrhea, abdominal pain, foot pain/bleeding. Patient had MRI yesterday. Wound cultures pending. Objective - Vital Signs/Intake and Output Vital Signs (last 24 hours): Temp Pulse Resp BP Pulse Ox 97.5 F L 62 18 149/76 94 L 10/08/17 06:00 10/08/17 11:09 10/08/17 06:00 10/08/17 11:09 10/08/17 06:00 Intake and Output: 10/08/17 10/08/17 06:59 18:59 Intake Total 1140 Output Total 925 Balance 215 - Medications Medications: Current Medications Aspirin (Aspirin Chewable) 81 mg PO DAILY [facility] Last Admin: 10/08/17 11:08 Dose: 81 mg Atorvastatin Calcium (Lipitor) 40 mg PO HS [facility] Last Admin: 10/07/17 22:18 Dose: 40 mg Clonazepam (Klonopin) 1 mg PO BID [facility] PRN Reason: Protocol Last Admin: 10/08/17 10:08 Dose: 1 mg Clopidogrel Bisulfate (Plavix) 75 mg PO DAILY [facility] Last Admin: 10/08/17 11:09 Dose: 75 mg Vancomycin HCl (Vancomycin 1gm) 1 gm in 250 mls @ 167 mls/hr IVPB Q12H [facility] PRN Reason: Protocol Last Admin: 10/08/17 05:23 Dose: 167 mls/hr Piperacillin Sod/Tazobactam Sod (Zosyn 3.375 In Ns 100ml) 100 mls @ 200 mls/hr IVPB Q6 [facility] PRN Reason: Protocol Last Admin: 10/08/17 11:10 Dose: 200 mls/hr Insulin Human Regular (Humulin R Low) 0 units SC ACHS [facility] PRN Reason: Protocol Last Admin: 10/08/17 01:04 Dose: Not Given Methadone HCl (Methadone) 30 mg PO BID [facility] Last Admin: 10/08/17 10:08 Dose: 30 mg Metoprolol Succinate (Toprol Xl) 50 mg PO DAILY [facility] Last Admin: 10/08/17 11:09 Dose: 50 mg Pantoprazole Sodium (Protonix Ec Tab) 40 mg PO 0600 [facility] Last Admin: 10/08/17 05:21 Dose: 40 mg Silver Sulfadiazine (Silvadene 1% 25 Gm) 0 gm TP DAILY [facility] Last Admin: 10/08/17 11:09 Dose: Not Given - Labs Labs: 10/08/17 07:00 10/08/17 08:30 PT 12.2 SECONDS (9.4-12.5) 10/06/17 17:40 INR 1.07 (0.93-1.08) 10/06/17 17:40 APTT 24.6 Seconds (25.1-36.5) L 10/06/17 17:40 - Additional Findings Additional findings: - Constitutional Appears: Non-toxic, No Acute Distress - Head Exam Head Exam: ATRAUMATIC, NORMOCEPHALIC - Eye Exam Eye Exam: EOMI, Normal appearance, PERRL - ENT Exam ENT Exam: Mucous Membranes Moist - Neck Exam Neck Exam: Normal Inspection - Respiratory Exam Respiratory Exam: Clear to Ausculation Bilateral, NORMAL BREATHING PATTERN - Cardiovascular Exam Cardiovascular Exam: RRR, +S1, +S2 - GI/Abdominal Exam GI & Abdominal Exam: Soft, Normal Bowel Sounds. 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 Possible right great toe osteomyelitis - MRI shows marrow edema in 4th and 5th metatarsals, concerning for osteomyelitis - Per podiatry, likely subacute/chronic; Considering low ESR/CRP and physical exam findings, no indication for urgent surgery - Wound culture shows gram positive cocci and gram negative rods; pending speciation and sensitivity - Per ID, patient may require 4-6 weeks of IV antibiotics, pending sensitivity - Afebrile, no leukocytosis, no SIRS - Blood culture negative - Continue Vanc and Zosyn pending cultures - Requested podiatric and ID consults; appreciate recs h/o CAD s/p stents and CABG - Continue ASA, Plavix, statin, BB - Heart healthy, moderate carb consistent diet DM - Hold oral anti-hyperglycemics - Continue sliding scale insulin, low, with accucheck ACHS - Heart healthy, moderate carb consistent diet HTN - BP mildly elevated today; continue home BB - Will continue to monitor h/o Chronic pain on Methadone - Patient reportedly takes methadon 60mg daily; prescribed by PMD [place] - Spoke to [facility] pharmacy ([phone]) and confirmed dose - Continue home methadone 30mg PO BID h/o Anxiety - Resume home clonazepam DVT Ppx: SCDs while in bed Patient discussed and reviewed with attending, Dr. Bal <Kuldip Bal - Last Filed: 10/09/17 17:01> Objective - Vital Signs/Intake and Output Vital Signs (last 24 hours): Temp Pulse Resp BP Pulse Ox 97.6 F 79 21 107/63 94 L 10/09/17 16:16 10/09/17 16:16 10/09/17 16:16 10/09/17 16:16 10/09/17 16:16 Intake and Output: 10/09/17 10/09/17 06:59 18:59 Intake Total 900 Balance 900 - Medications Medications: Current Medications Aspirin (Aspirin Chewable) 81 mg PO DAILY [facility] Last Admin: 10/09/17 10:27 Dose: 81 mg Atorvastatin Calcium (Lipitor) 40 mg PO HS [facility] Last Admin: 10/08/17 21:22 Dose: 40 mg Clonazepam (Klonopin) 1 mg PO BID [facility] PRN Reason: Protocol Last Admin: 10/09/17 10:22 Dose: 1 mg Clopidogrel Bisulfate (Plavix) 75 mg PO DAILY [facility] Last Admin: 10/09/17 10:22 Dose: 75 mg Vancomycin HCl (Vancomycin 1gm) 1 gm in 250 mls @ 167 mls/hr IVPB Q12H [facility] PRN Reason: Protocol Last Admin: 10/09/17 06:19 Dose: 167 mls/hr Piperacillin Sod/Tazobactam Sod (Zosyn 3.375 In Ns 100ml) 100 mls @ 200 mls/hr IVPB Q6 [facility] PRN Reason: Protocol Last Admin: 10/09/17 11:59 Dose: 200 mls/hr Insulin Human Regular (Humulin R Low) 0 units SC ACHS [facility] PRN Reason: Protocol Last Admin: 10/09/17 11:59 Dose: 1 units Methadone HCl (Methadone) 30 mg PO BID [facility] Last Admin: 10/09/17 10:27 Dose: 30 mg Metoprolol Succinate (Toprol Xl) 25 mg PO BRK [facility] Last Admin: 10/09/17 10:22 Dose: 25 mg Pantoprazole Sodium (Protonix Ec Tab) 40 mg PO 0600 [facility] Last Admin: 10/09/17 06:19 Dose: 40 mg Silver Sulfadiazine (Silvadene 1% 25 Gm) 0 gm TP DAILY [facility] Last Admin: 10/09/17 10:27 Dose: 1 gm - Labs Labs: 10/09/17 07:00 10/09/17 07:00 PT 12.2 SECONDS (9.4-12.5) 10/06/17 17:40 INR 1.07 (0.93-1.08) 10/06/17 17:40 APTT 24.6 Seconds (25.1-36.5) L 10/06/17 17:40 Attending/Attestation - Attestation I have personally seen and examined this patient.: Yes I have fully participated in the care of the patient.: Yes I have reviewed all pertinent clinical information, including history, physical exam and plan: Yes Notes (Text): Medical record note made by the resident after discussion with my direction and input after the patient was personally seen and examined by me. I have reviewed the chart and agree that the record accurately reflects by personal performance of the history, physical exam, data review, and medical decision-making, in the course for the patient. I have also personally directed the plan of care. 67 yo M with PMH of CAD s/p stents and CABG, DM, HTN, and HLD is admitted with right foot diabetic infected big toe ulcer, he is SP I/D by Podiatry. MRI shows marrow edema in 4th and 5th metatarsals, concerning for osteomyelitis. Blood cultures are negative for any growth. Wound cultures are pending. We will continue antibiotics as per ID and will follow up cultures.
--- NOTE | 2017-10-08 13:45 | CP.PCM.PN ---
Subjective - Date & Time of Evaluation Date of Evaluation: 10/08/17 Time of Evaluation: 13:00 - Subjective Subjective: Infectious Disease Follow Up: October 08, 2017 67 yo male sent to [facility] for osteomyelitis of the right great toe. The patient has an extensive medical history that includes AD s/p stents and CABG, DM, HTN, and HLD. The patient has had several hospitalization to [facility]. He was having persistent seepage and drainage from the right great toe. Started on Zosyn and IV Vancomycin for care. Gram negative rods and Gram positive cocci. Await identification and sensitive of the gram negative german as if the identification is a resistant Pseudomonas, the patient will need IV antibiotic treatment. The same for highly resistant E. coli or Klebsiella. Otherwise, oral agent might be useful. No elevation in ESR. MRI highlighting of the marrow may be osteomyelitis versus chronic changes. Objective - Vital Signs/Intake and Output Vital Signs (last 24 hours): Temp Pulse Resp BP Pulse Ox 97.5 F L 62 18 149/76 94 L 10/08/17 06:00 10/08/17 11:09 10/08/17 06:00 10/08/17 11:09 10/08/17 06:00 Intake and Output: 10/08/17 10/08/17 06:59 18:59 Intake Total 1140 Output Total 925 Balance 215 - Medications Medications: Current Medications Aspirin (Aspirin Chewable) 81 mg PO DAILY [facility] Last Admin: 10/08/17 11:08 Dose: 81 mg Atorvastatin Calcium (Lipitor) 40 mg PO HS [facility] Last Admin: 10/07/17 22:18 Dose: 40 mg Clonazepam (Klonopin) 1 mg PO BID [facility] PRN Reason: Protocol Last Admin: 10/08/17 10:08 Dose: 1 mg Clopidogrel Bisulfate (Plavix) 75 mg PO DAILY [facility] Last Admin: 10/08/17 11:09 Dose: 75 mg Vancomycin HCl (Vancomycin 1gm) 1 gm in 250 mls @ 167 mls/hr IVPB Q12H [facility] PRN Reason: Protocol Last Admin: 10/08/17 05:23 Dose: 167 mls/hr Piperacillin Sod/Tazobactam Sod (Zosyn 3.375 In Ns 100ml) 100 mls @ 200 mls/hr IVPB Q6 [facility] PRN Reason: Protocol Last Admin: 10/08/17 11:10 Dose: 200 mls/hr Insulin Human Regular (Humulin R Low) 0 units SC ACHS [facility] PRN Reason: Protocol Last Admin: 10/08/17 11:15 Dose: Not Given Methadone HCl (Methadone) 30 mg PO BID [facility] Last Admin: 10/08/17 10:08 Dose: 30 mg Metoprolol Succinate (Toprol Xl) 50 mg PO DAILY [facility] Last Admin: 10/08/17 11:09 Dose: 50 mg Pantoprazole Sodium (Protonix Ec Tab) 40 mg PO 0600 [facility] Last Admin: 10/08/17 05:21 Dose: 40 mg Silver Sulfadiazine (Silvadene 1% 25 Gm) 0 gm TP DAILY [facility] Last Admin: 10/08/17 11:09 Dose: Not Given - Labs Labs: 10/08/17 07:00 10/08/17 08:30 PT 12.2 SECONDS (9.4-12.5) 10/06/17 17:40 INR 1.07 (0.93-1.08) 10/06/17 17:40 APTT 24.6 Seconds (25.1-36.5) L 10/06/17 17:40 - Constitutional Appears: Non-toxic, No Acute Distress, Chronically Ill - Head Exam Head Exam: ATRAUMATIC, NORMOCEPHALIC - Eye Exam Eye Exam: EOMI, PERRL Pupil Exam: NORMAL ACCOMODATION, PERRL - ENT Exam ENT Exam: Mucous Membranes Moist, Normal External Ear Exam, TM's Normal Bilaterally - Neck Exam Neck Exam: Full ROM, Normal Inspection - Respiratory Exam Respiratory Exam: Clear to Ausculation Bilateral, NORMAL BREATHING PATTERN. absent: Rales, Rhonchi, Wheezes - Cardiovascular Exam Cardiovascular Exam: REGULAR RHYTHM, RRR, +S1, +S2 - GI/Abdominal Exam GI & Abdominal Exam: Soft, Normal Bowel Sounds. 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 - Neurological Exam Neurological Exam: Alert, Awake, CN II-XII Intact, Oriented x3 - Psychiatric Exam Psychiatric exam: Normal Affect, Normal Mood - Skin Skin Exam: Dry, Intact, Normal Color Assessment and Plan - Assessment and Plan (Free Text) Assessment: 67 yo male with extensive PMHx of CAD s/p stents and CABG, DM, HTN, and HLD sent by sexer to [facility] for further evaluation and treatment of the right great toe which is draining. Relatively low ESR from 20 to 45. Patient is already stating that he is refusing surgery before podiaty has evaluated the patient. Multiple hospitalizations for diabetic foot ulcers. Started on Zosyn and IV Vancomycin. May need up to 6 weeks of therapy. Cultures already growing Staph Aureus (the lab has now rescinded this to gram positive cocci) and gram negative rods. Full identification and sensitivities pending. MRI with finding that could be consistent with osteomyelitis but the patient has had many issues with this foot in the past and the changes seen may be more chronic. Podiatry did not think this was osteomyelitis. Awaiting cultures to finalize to determine whether oral versus IV antibiotics. Supportive care Thank you for allowing me to participate in the care of the patient, we will follow with you.
[2017-10-08] MEDS ORDERED: Metoprolol Succinate 50 mg XL Tab PO SCH (17:31)
[2017-10-09] MEDS: Piperacillin/Tazobact 3.375 gm 100 ML IVPB SCH ×2 (05:27→11:59)
[2017-10-09] MEDS: Pantoprazole 40 mg EC Tab PO SCH (06:19)
[2017-10-09] MEDS: Vancomycin 1gm in NS 250ml 1 GM/250 ML BAG IVPB SCH (06:19)
[2017-10-09 07:24] LABS: BASO # 0.02 K/mm3 (0.0-2.0); BASO % 0.3 % (0.0-3.0); EOS # 0.5 (0.0-0.7); EOS % 6.6 % (1.5-5.0); GRAN # 3.7 (1.4-6.5); GRAN % 53.2 % (50.0-68.0); LYMPH % 29.4 % (22.0-35.0); MEAN CELL VOLUME 80.9 fl (80.0-105.0); MEAN CORPUSCULAR HGB CONC 32.2 g/dl (31.0-37.0); MEAN PLATELET VOLUME 9.7 fl (7.0-11.0); MONO # 0.7 (0.1-0.6); MONO % 10.5 % (1.0-6.0); RBC 4.23 10^6/uL (3.5-6.1); RED CELL DISTRIBUTION WIDTH 17.1 % (11.5-14.5)
[2017-10-09 07:39] LABS: ALB/GLOB RATIO 0.9 (1.1-1.8); ALBUMIN 3.4 g/dL (3.0-4.8); ALT/SGPT 53 U/L (7-56); AST/SGOT 61 U/L (17-59); BLOOD UREA NITROGEN 20 mg/dL (7-21); CALCIUM 9.5 mg/dL (8.4-10.5); GFR AFRICAN-AMERICAN > 60; GFR NON-AFRICAN AMERICAN > 60
[2017-10-09 07:57] VITALS: O2SAT 94
[2017-10-09] MEDS: Insulin Reg-LOW-Coverage SC SCH ×2 (08:00→11:59)
[2017-10-09] MEDS ORDERED: Metoprolol Succinate 25 mg XL Tab PO SCH (08:00)
--- NOTE | 2017-10-09 09:02 | CP.PCM.PN ---
<Thien Meade - Last Filed: 10/09/17 08:58> Subjective - Date & Time of Evaluation Date of Evaluation: 10/09/17 Time of Evaluation: 08:59 - Subjective Subjective: Podiatry Progress note: Dr. Fry/Dr. Rich pt seen at bedside for hallux wound to the right foot; pt is s/p simple I&D at [facility] for abcess to the hallux; pt states he feels much better since procedure and antibiotics; pt in no distress and resting Objective - Vital Signs/Intake and Output Vital Signs (last 24 hours): Temp Pulse Resp BP Pulse Ox 97.7 F 56 L 18 153/80 H 94 L 10/09/17 07:57 10/09/17 07:57 10/09/17 07:57 10/09/17 07:57 10/09/17 07:57 Intake and Output: 10/09/17 10/09/17 06:59 18:59 Intake Total 900 Balance 900 - Medications Medications: Current Medications Aspirin (Aspirin Chewable) 81 mg PO DAILY [facility] Last Admin: 10/08/17 11:08 Dose: 81 mg Atorvastatin Calcium (Lipitor) 40 mg PO HS [facility] Last Admin: 10/08/17 21:22 Dose: 40 mg Clonazepam (Klonopin) 1 mg PO BID [facility] PRN Reason: Protocol Last Admin: 10/08/17 17:34 Dose: Not Given Clopidogrel Bisulfate (Plavix) 75 mg PO DAILY [facility] Last Admin: 10/08/17 11:09 Dose: 75 mg Vancomycin HCl (Vancomycin 1gm) 1 gm in 250 mls @ 167 mls/hr IVPB Q12H [facility] PRN Reason: Protocol Last Admin: 10/09/17 06:19 Dose: 167 mls/hr Piperacillin Sod/Tazobactam Sod (Zosyn 3.375 In Ns 100ml) 100 mls @ 200 mls/hr IVPB Q6 [facility] PRN Reason: Protocol Last Admin: 10/09/17 05:27 Dose: 200 mls/hr Insulin Human Regular (Humulin R Low) 0 units SC ACHS [facility] PRN Reason: Protocol Last Admin: 10/08/17 21:39 Dose: Not Given Methadone HCl (Methadone) 30 mg PO BID [facility] Last Admin: 10/08/17 17:34 Dose: Not Given Metoprolol Succinate (Toprol Xl) 25 mg PO BRK [facility] Pantoprazole Sodium (Protonix Ec Tab) 40 mg PO 0600 [facility] Last Admin: 10/09/17 06:19 Dose: 40 mg Silver Sulfadiazine (Silvadene 1% 25 Gm) 0 gm TP DAILY [facility] Last Admin: 10/08/17 11:09 Dose: Not Given - Labs Labs: 10/09/17 07:00 10/09/17 07:00 PT 12.2 SECONDS (9.4-12.5) 10/06/17 17:40 INR 1.07 (0.93-1.08) 10/06/17 17:40 APTT 24.6 Seconds (25.1-36.5) L 10/06/17 17:40 - Constitutional Appears: Well, Non-toxic, No Acute Distress - Extremities Exam Additional comments: VASC: 1/4 palpable pedal pulses TG WNL CFT 3 sec x 3 right foot Neuro: no sensation to the feet bilateral Derm: Skin exam shows a plantar hallux ulcer on the right foot with extension into the lateral portion from the abcess - there is no longer any pus no fluctuance and the wound is much improved; wound base is granular and appears to be healing, there is also a small wound plantar aspect lateral foot with no signs of infection no sinus tract no undermining - 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 Fry Afebrile, WBC @ 7.0 C&S: Gram negative rods and staph aureus pt presently on vanco and zosyn - IV antibiotics to continue ID consult - recs appreciated local care with SSD/dsd daily offweight bearing shoe while ambulating Patient is stable from podiatry standpoint Podiatry to continue following patient while in-house <Kishan Fry - Last Filed: 10/10/17 08:23> Objective - Vital Signs/Intake and Output Vital Signs (last 24 hours): Temp Pulse Resp BP Pulse Ox 97.6 F 79 21 107/63 94 L 10/09/17 16:16 10/09/17 16:16 10/09/17 16:16 10/09/17 16:16 10/09/17 16:16 - Labs Labs: 10/09/17 07:00 10/09/17 07:00 PT 12.2 SECONDS (9.4-12.5) 10/06/17 17:40 INR 1.07 (0.93-1.08) 10/06/17 17:40 APTT 24.6 Seconds (25.1-36.5) L 10/06/17 17:40 Attending/Attestation - Attestation I have personally seen and examined this patient.: Yes I have fully participated in the care of the patient.: Yes I have reviewed all pertinent clinical information, including history, physical exam and plan: Yes
[2017-10-09] MEDS: Silver Sulfadiazine 1% Cream (25 gm) TP SCH (10:27)
--- NOTE | 2017-10-09 12:09 | PN ---
DATE: SUBJECTIVE: A 67-year-old diabetic male seen at bedside for continued evaluation and management of right hallux and right lateral plantar diabetic foot ulceration. The patient is feeling much better. He has been afebrile and is anxious to go home. MRI findings were consistent with osteomyelitis. However, the patient has had numerous pedal surgeries in the past, numerous resections of his metatarsals and cortical erosion can mimic osteomyelitis in the absence of actual osteomyelitis. Clinical findings do not match MRI results. We are awaiting cultures to finalize if he is going to be placed on PICC line or oral antibiotics. OBJECTIVE VITAL SIGNS: Showed temperature of 97.7, pulse rate of 56, blood pressure of 153/80, respiratory rate of 18. Weakly palpable pedal pulses noted bilaterally. Capillary filling time is delayed on all digits of both feet. The patient cannot detect 5.07 monofilament wire testing bilaterally. There is noted to be a full-thickness ulcer on the plantar right hallux that measures approximately 0.5 x 0.5 x 0.2 cm. The base of the wound is granular with minimal serous drainage. There is no purulence to suggest underlying abscess formation and the wound does not probe to tendon or bone. There is a superficial ulceration on the lateral portion of the right foot which measures less than 0.3 x 0.3 x 0.2 cm. Base of this ulcer is granular with minimal serous drainage, no purulence, no probing to bone. There are no abscess formations noted at either ulceration site. DATA: Laboratory findings reveal a white count 7, hemoglobin of 11, hematocrit of 34.2, platelet count of 185. Culture of right foot reveals moderate growth of Enterobacter cloacae and light growth of Staph aureus. ASSESSMENT: Resolving right hallux abscess with resolving diabetic foot ulcerations. No clinical signs of osteomyelitis. PLAN: The patient's wounds were cultured and submitted. Wounds were cleansed with normal sterile saline and application of Silvadene and dry sterile dressing was applied. We are waiting decision as to whether PICC line placement is necessary or antibiotics can be given upon discharge. We will continue seeing the patient daily. He can ambulate with forefoot weightbearing shoe. Kishan Fry DPM [facility] # [id number]
--- NOTE | 2017-10-09 15:34 | CP.PCM.DIS ---
<Christian Guerrero - Last Filed: 10/09/17 15:40> Provider - Provider Date of Admission: 10/06/17 18:03 Attending physician: Kuldip Bal MD Primary care physician: Tate Villa MD Consults: Dr. Layla Larry Time Spent in preparation of Discharge (in minutes): 35 Diagnosis - Discharge Diagnosis (1) Cellulitis Status: Acute (2) Wound infection Status: Acute Hospital Course - Lab Results Lab Results: Micro Results 10/09/17 08:34 Foot - Right Gram Stain - Preliminary 10/06/17 23:00 Foot - Right Gram Stain - Final 10/06/17 23:00 Foot - Right Wound Culture - Final Enterobacter Cloacae Ssp Cloac Staphylococcus Aureus Most Recent Lab Values WBC 7.0 10^3/ul (4.5-11.0) 10/09/17 07:00 RBC 4.23 10^6/uL (3.5-6.1) 10/09/17 07:00 Hgb 11.0 g/dL (14.0-18.0) L 10/09/17 07:00 Hct 34.2 % (42.0-52.0) L 10/09/17 07:00 MCV 80.9 fl (80.0-105.0) 10/09/17 07:00 MCH 26.0 pg (25.0-35.0) 10/09/17 07:00 MCHC 32.2 g/dl (31.0-37.0) 10/09/17 07:00 RDW 17.1 % (11.5-14.5) H 10/09/17 07:00 Plt Count 185 10^3/uL (120.0-450.0) 10/09/17 07:00 MPV 9.7 fl (7.0-11.0) 10/09/17 07:00 Gran % 53.2 % (50.0-68.0) 10/09/17 07:00 Lymph % (Auto) 29.4 % (22.0-35.0) 10/09/17 07:00 Jerauld % (Auto) 10.5 % (1.0-6.0) H 10/09/17 07:00 Eos % (Auto) 6.6 % (1.5-5.0) H 10/09/17 07:00 Baso % (Auto) 0.3 % (0.0-3.0) 10/09/17 07:00 Gran # 3.70 (1.4-6.5) 10/09/17 07:00 Lymph # (Auto) 2.0 (1.2-3.4) 10/09/17 07:00 Jerauld # (Auto) 0.7 (0.1-0.6) H 10/09/17 07:00 Eos # (Auto) 0.5 (0.0-0.7) 10/09/17 07:00 Baso # (Auto) 0.02 K/mm3 (0.0-2.0) 10/09/17 07:00 ESR 45 mm/hr (0.00-15.0) H 10/06/17 15:50 PT 12.2 SECONDS (9.4-12.5) 10/06/17 17:40 INR 1.07 (0.93-1.08) 10/06/17 17:40 APTT 24.6 Seconds (25.1-36.5) L 10/06/17 17:40 Sodium 139 mmol/L (132-148) 10/09/17 07:00 Potassium 4.3 mmol/L (3.6-5.0) 10/09/17 07:00 Chloride 99 mmol/L (98-107) 10/09/17 07:00 Carbon Dioxide 31 mmol/L (21-33) 10/09/17 07:00 Anion Gap 14 (10-20) 10/09/17 07:00 BUN 20 mg/dL (7-21) 10/09/17 07:00 Creatinine 1.2 mg/dl (0.8-1.5) 10/09/17 07:00 Est GFR ( Amer) > 60 10/09/17 07:00 Est GFR (Non-Af Amer) > 60 10/09/17 07:00 POC Glucose (mg/dL) 159 mg/dL (65-110) H 10/09/17 11:24 Random Glucose 76 mg/dL (70-110) 10/09/17 07:00 Calcium 9.5 mg/dL (8.4-10.5) 10/09/17 07:00 Magnesium 1.9 mg/dL (1.7-2.2) 10/07/17 07:00 Total Bilirubin 0.7 mg/dL (0.2-1.3) 10/09/17 07:00 AST 61 U/L (17-59) H 10/09/17 07:00 ALT 53 U/L (7-56) 10/09/17 07:00 Alkaline Phosphatase 96 U/L (38-126) 10/09/17 07:00 C-Reactive Protein 12.30 mg/L (0.0-9.9) H 10/06/17 15:50 Total Protein 7.0 g/dL (5.8-8.3) 10/09/17 07:00 Albumin 3.4 g/dL (3.0-4.8) 10/09/17 07:00 Globulin 3.6 gm/dL 10/09/17 07:00 Albumin/Globulin Ratio 0.9 (1.1-1.8) L 10/09/17 07:00 - Hospital Course Hospital Course: 67 yo M with PMH of CAD s/p stents and CABG, DM, HTN, and HLD presented to the ED, 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 On admission, wound and blood cultures were obtained, and patient was started on IV antibiotics. Patient did not meet SIRS, and remained comfrotable throughout admission. MRI of the right foot showed marrow and soft tissue edema of the 4th and 5th metatarsals, but ESR and CRP were only mildly elevated, He was seen by podiatry who recommended continued antibiotics, without need for amputation or further surgical debridement. Patient remained hospitalized until cultures and sensitivies were resulted. During hospitalization, patient was otherwise maintained on his maintenance medications, including his methadone. His wound cultures of the big toe showed moderate growth Enterobacter and light growth Staph aureus both of which were sensitive to Ciprofloxacin. The patient was discharged with the below written instructions and recommendations. His hospital course was uncomplicated. - Date & Time of H&P Date of H&P: 10/09/17 Time of H&P: 15:45 Discharge Exam - Head Exam Head Exam: ATRAUMATIC, NORMOCEPHALIC - Eye Exam Eye Exam: EOMI, Normal appearance - ENT Exam ENT Exam: Mucous Membranes Moist - Neck Exam Neck exam: Normal Inspection - Respiratory Exam Respiratory Exam: Clear to PA & Lateral, NORMAL BREATHING PATTERN. absent: Accessory Muscle Use - Cardiovascular Exam Cardiovascular Exam: RRR, +S1, +S2 - GI/Abdominal Exam GI & Abdominal Exam: Normal Bowel Sounds, Unremarkable - Neurological Exam Neurological exam: Alert, CN II-XII Intact, Oriented x3 - Psychiatric Exam Psychiatric exam: Normal Affect, Normal Mood - Skin Skin Exam: Dry, Intact, Normal Color, Warm Discharge Plan - Discharge Medications Prescriptions: Ciprofloxacin [Cipro] 500 mg PO Q12H #60 tab Silver Sulfadiazine 1% 25 gm [Silvadene 1% 25 gm] 1 gm TP DAILY #1 cream - Follow Up Plan Condition: FAIR Disposition: HOME/ ROUTINE Instructions: Methicillin-Resistant Staphylococcus aureus (MRSA), Cellulitis ( DC) Additional Instructions: 1) Patient to follow up with [place] [facility] within the next two weeks. 2) Patient to avoid heavy lifting or strenous activity while taking ciprofloxacin. 3) Patient recommended to follow up with Dr. Villa within one week of discharge. 4) Patient to take any prescriptions as directed. Referrals: Tate Villa MD [Primary Care Provider] - <Kuldip Bal - Last Filed: 10/09/17 17:05> Provider - Provider Date of Admission: 10/06/17 18:03 Attending physician: Kuldip Bal MD Primary care physician: Tate Villa MD Hospital Course - Lab Results Lab Results: Micro Results 10/09/17 08:34 Foot - Right Gram Stain - Preliminary 10/06/17 23:00 Foot - Right Gram Stain - Final 10/06/17 23:00 Foot - Right Wound Culture - Final Enterobacter Cloacae Ssp Cloac Staphylococcus Aureus Most Recent Lab Values WBC 7.0 10^3/ul (4.5-11.0) 10/09/17 07:00 RBC 4.23 10^6/uL (3.5-6.1) 10/09/17 07:00 Hgb 11.0 g/dL (14.0-18.0) L 10/09/17 07:00 Hct 34.2 % (42.0-52.0) L 10/09/17 07:00 MCV 80.9 fl (80.0-105.0) 10/09/17 07:00 MCH 26.0 pg (25.0-35.0) 10/09/17 07:00 MCHC 32.2 g/dl (31.0-37.0) 10/09/17 07:00 RDW 17.1 % (11.5-14.5) H 10/09/17 07:00 Plt Count 185 10^3/uL (120.0-450.0) 10/09/17 07:00 MPV 9.7 fl (7.0-11.0) 10/09/17 07:00 Gran % 53.2 % (50.0-68.0) 10/09/17 07:00 Lymph % (Auto) 29.4 % (22.0-35.0) 10/09/17 07:00 Jerauld % (Auto) 10.5 % (1.0-6.0) H 10/09/17 07:00 Eos % (Auto) 6.6 % (1.5-5.0) H 10/09/17 07:00 Baso % (Auto) 0.3 % (0.0-3.0) 10/09/17 07:00 Gran # 3.70 (1.4-6.5) 10/09/17 07:00 Lymph # (Auto) 2.0 (1.2-3.4) 10/09/17 07:00 Jerauld # (Auto) 0.7 (0.1-0.6) H 10/09/17 07:00 Eos # (Auto) 0.5 (0.0-0.7) 10/09/17 07:00 Baso # (Auto) 0.02 K/mm3 (0.0-2.0) 10/09/17 07:00 ESR 45 mm/hr (0.00-15.0) H 10/06/17 15:50 PT 12.2 SECONDS (9.4-12.5) 10/06/17 17:40 INR 1.07 (0.93-1.08) 10/06/17 17:40 APTT 24.6 Seconds (25.1-36.5) L 10/06/17 17:40 Sodium 139 mmol/L (132-148) 10/09/17 07:00 Potassium 4.3 mmol/L (3.6-5.0) 10/09/17 07:00 Chloride 99 mmol/L (98-107) 10/09/17 07:00 Carbon Dioxide 31 mmol/L (21-33) 10/09/17 07:00 Anion Gap 14 (10-20) 10/09/17 07:00 BUN 20 mg/dL (7-21) 10/09/17 07:00 Creatinine 1.2 mg/dl (0.8-1.5) 10/09/17 07:00 Est GFR ( Amer) > 60 10/09/17 07:00 Est GFR (Non-Af Amer) > 60 10/09/17 07:00 POC Glucose (mg/dL) 108 mg/dL (65-110) 10/09/17 16:07 Random Glucose 76 mg/dL (70-110) 10/09/17 07:00 Calcium 9.5 mg/dL (8.4-10.5) 10/09/17 07:00 Magnesium 1.9 mg/dL (1.7-2.2) 10/07/17 07:00 Total Bilirubin 0.7 mg/dL (0.2-1.3) 10/09/17 07:00 AST 61 U/L (17-59) H 10/09/17 07:00 ALT 53 U/L (7-56) 10/09/17 07:00 Alkaline Phosphatase 96 U/L (38-126) 10/09/17 07:00 C-Reactive Protein 12.30 mg/L (0.0-9.9) H 10/06/17 15:50 Total Protein 7.0 g/dL (5.8-8.3) 10/09/17 07:00 Albumin 3.4 g/dL (3.0-4.8) 10/09/17 07:00 Globulin 3.6 gm/dL 10/09/17 07:00 Albumin/Globulin Ratio 0.9 (1.1-1.8) L 10/09/17 07:00 Attending/Attestation - Attestation I have personally seen and examined this patient.: Yes I have fully participated in the care of the patient.: Yes I have reviewed all pertinent clinical information, including history, physical exam and plan: Yes Notes (Text): 10/09/17 17:02 Medical record note made by the resident after discussion with my direction and input after the patient was personally seen and examined by me. I have reviewed the chart and agree that the record accurately reflects by personal performance of the history, physical exam, data review, and medical decision-making, in the course for the patient. I have also personally directed the plan of care. 67 yo M with PMH of CAD s/p stents and CABG, DM, HTN, and HLD is admitted with right foot diabetic infected big toe ulcer, he is SP I/D by Podiatry. MRI shows marrow edema in 4th and 5th metatarsals, concerning for osteomyelitis. Blood cultures are negative for any growth. Wound cultures grew MSSA and enterobacter..Case was discussed with ID and Podiatry.Patient osteomylitis is likely chronic, and he can be treated with PO antibiotics.He will be discharged home on 4 weeks of oral ciprofloxacin and will follow up with Podiatry and PCP. Management plan was discussed in detail with patient. Education was provided. 10/09/17 17:03
[2017-10-09 16:18] VITALS: BP 107/63; PULSE 79; RESP 21; TEMP 97.6
--- NOTE | 2017-10-09 18:22 | CP.PCM.PN ---
Subjective - Date & Time of Evaluation Date of Evaluation: 10/09/17 Time of Evaluation: 16:00 - Subjective Subjective: Infectious Disease Follow Up: October 09, 2017 67 yo male sent to [facility] [place] for osteomyelitis of the right great toe. The patient has an extensive medical history that includes AD s/p stents and CABG, DM, HTN, and HLD. The patient has had several hospitalization to [facility] [place]. He was having persistent seepage and drainage from the right great toe. Started on Zosyn and IV Vancomycin for care. Gram negative rods and Gram positive cocci. Await identification and sensitive of the gram negative german as if the identification is a resistant Pseudomonas, the patient will need IV antibiotic treatment. The same for highly resistant E. coli or Klebsiella. Otherwise, oral agent might be useful. No elevation in ESR. MRI highlighting of the marrow may be osteomyelitis versus chronic changes. Wound cultures showing Enterobacter and MSSA. Both sensitive to Cipro. Objective - Vital Signs/Intake and Output Vital Signs (last 24 hours): Temp Pulse Resp BP Pulse Ox 97.6 F 79 21 107/63 94 L 10/09/17 16:16 10/09/17 16:16 10/09/17 16:16 10/09/17 16:16 10/09/17 16:16 Intake and Output: 10/09/17 10/09/17 06:59 18:59 Intake Total 900 Balance 900 - Labs Labs: 10/09/17 07:00 10/09/17 07:00 PT 12.2 SECONDS (9.4-12.5) 10/06/17 17:40 INR 1.07 (0.93-1.08) 10/06/17 17:40 APTT 24.6 Seconds (25.1-36.5) L 10/06/17 17:40 - Constitutional Appears: Non-toxic, No Acute Distress, Chronically Ill - Head Exam Head Exam: ATRAUMATIC, NORMOCEPHALIC - Eye Exam Eye Exam: EOMI, PERRL Pupil Exam: NORMAL ACCOMODATION, PERRL - ENT Exam ENT Exam: Mucous Membranes Moist, Normal External Ear Exam, TM's Normal Bilaterally - Neck Exam Neck Exam: Full ROM, Normal Inspection - Respiratory Exam Respiratory Exam: Clear to Ausculation Bilateral, NORMAL BREATHING PATTERN. absent: Rales, Rhonchi, Wheezes - Cardiovascular Exam Cardiovascular Exam: REGULAR RHYTHM, RRR, +S1, +S2 - GI/Abdominal Exam GI & Abdominal Exam: Soft, Normal Bowel Sounds. 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 Relatively low ESR from 20 to 45. Patient is already stating that he is refusing surgery before podiaty has evaluated the patient. Multiple hospitalizations for diabetic foot ulcers. Started on Zosyn and IV Vancomycin. May need up to 6 weeks of therapy. Cultures already growing Staph Aureus (the lab has now rescinded this to gram positive cocci) and gram negative rods. Full identification and sensitivities pending. MRI with finding that could be consistent with osteomyelitis but the patient has had many issues with this foot in the past and the changes seen may be more chronic. Podiatry did not think this was osteomyelitis. Awaiting cultures to finalize to determine whether oral versus IV antibiotics. Cultures showing Enterobacter and MSSA. Can utilize Cipro orally for antibiotic care on discharge for 4 weeks. Supportive care Thank you for allowing me to participate in the care of the patient, we will follow with you.
== END 2017-10-09 17:33 | disposition home or self-care (01) | DRG 638 ==
LOC: ED 14:48 → ERH 18:03 → 5RSO 21:27
PROVIDERS: ADMIT Internal Medicine; ATTEND Internal Medicine
DX: E10.69 Type 1 diabetes mellitus with other specified complication (principal); M86.8X7 Other osteomyelitis, ankle and foot; E10.621 Type 1 diabetes mellitus with foot ulcer; L97.519 Non-pressure chronic ulcer of other part of right foot with unspecified severity; E78.5 Hyperlipidemia, unspecified; I10 Essential (primary) hypertension; I25.10 Atherosclerotic heart disease of native coronary artery without angina pectoris; I87.8 Other specified disorders of veins; Z53.20 Procedure and treatment not carried out because of patient's decision for unspecified reasons; Z79.02 Long term (current) use of antithrombotics/antiplatelets; Z79.891 Long term (current) use of opiate analgesic; Z82.3 Family history of stroke; Z82.49 Family history of ischemic heart disease and other diseases of the circulatory system; Z87.01 Personal history of pneumonia (recurrent); Z87.891 Personal history of nicotine dependence; Z89.421 Acquired absence of other right toe(s); Z90.49 Acquired absence of other specified parts of digestive tract; Z95.1 Presence of aortocoronary bypass graft; Z95.5 Presence of coronary angioplasty implant and graft; Z98.1 Arthrodesis status; L03.031 Cellulitis of right toe; B95.61 Methicillin susceptible Staphylococcus aureus infection as the cause of diseases classified elsewhere; F14.11 Cocaine abuse, in remission

== ENCOUNTER 2018-02-11 15:05 | Inpatient (IN) | payer MEDICARE, OTHER ==
[2018-02-11 15:32] VITALS: BMI 23.6
[2018-02-11] MEDS ORDERED: Piperacillin/Tazobact 3.375 gm 100 ML IVPB STA (15:52)
[2018-02-11] MEDS ORDERED: Vancomycin 1gm in NS 250ml 1 GM/250 ML BAG IVPB STA (15:52)
--- NOTE | 2018-02-11 16:05 | ED PDOC ---
Arrival/HPI - General Chief Complaint: Lower Extremity Problem/Injury Time Seen by Provider: 02/11/18 15:08 - History of Present Illness Narrative History of Present Illness (Text): 02/11/18 16:03 68 yo male ,presents with rigth toe bleeding and discharge. pt reports symtposm getting worse. no fevers. also reports small chronic ulcer to mid back. no other complaints. Past Medical History - Infectious Disease Hx of Infectious Diseases: None - Tetanus Immunization Tetanus Immunization: Unknown - Cardiac Hx Cardiac Arrhythmia: No Hx Congestive Heart Failure: No Hx Hypertension: Yes Hx Mitral Valve Prolapse: No Hx Pacemaker: No Hx Peripheral Edema: No - Pulmonary Hx Asthma: No Hx Bronchitis: No Hx Chronic Obstructive Pulmonary Disease (COPD): No Hx Emphysema: No Hx Pneumonia: Yes Hx Sleep Apnea: No - Neurological Hx Alzheimer's Disease: No Hx Dementia: No Hx Migraine: Yes Hx Parkinson's Disease: No Hx Seizures: No Hx Transient Ischemic Attacks (TIA): No - HEENT Hx HEENT Disorder: No - Renal Hx Renal Disorder: No Hx Kidney Stones: No - Endocrine/Metabolic Hx Hyperthyroidism: No Hx Hypothyroidism: No - Hematological/Oncological Hx Anemia: No Hx Sickle Cell Disease: No - Integumentary Hx Dermatological Disorder: Yes (RIGHT 2ND TOE AND 5TH TOE AMPUTATED) - Musculoskeletal/Rheumatological Hx Arthritis: No Hx Fractures: No Hx Osteoporosis: No - Gastrointestinal Hx Crohn's Disease: No Hx Diverticulitis: No Hx Gall Bladder Disease: Yes Hx Gastrointestinal Ulcer: No Hx Pancreatitis: No - Genitourinary/Gynecological Hx Sexually Transmitted Diseases: No - Psychiatric Hx Anxiety: Yes Hx Depression: Yes (pt reports periods of sadness) Hx Substance Use: No - Surgical History Hx Appendectomy: Yes Hx Cholecystectomy: Yes Hx Coronary Artery Bypass Graft: Yes Hx Coronary Stent: Yes (X 3) - Anesthesia Hx Anesthesia: Yes Hx Anesthesia Reactions: No Hx Malignant Hyperthermia: No - Suicidal Assessment Feels Threatened In Home Enviroment: No Family/Social History - Physician Review Nursing Documentation Reviewed: Yes Family/Social History: Unknown Family HX Smoking Status: Former Smoker Hx Alcohol Use: Yes Hx Substance Use: No Allergies/Home Meds Allergies/Adverse Reactions: Allergies No Known Allergies Allergy (Verified 02/11/18 15:33) Home Medications: Home Meds Medication Instructions Recorded Confirmed Aspirin [Aspirin Chewable] 81 mg PO DAILY 08/06/17 02/11/18 Atorvastatin [Lipitor] 40 mg PO HS 08/06/17 02/11/18 Clopidogrel [Plavix] 75 mg PO DAILY 08/06/17 02/11/18 Metoprolol Succinate XL [Toprol XL] 50 mg PO DAILY 08/06/17 02/11/18 SITagliptin [Januvia] 100 mg PO DAILY 08/06/17 02/11/18 Methadone 10 mg PO DAILY 10/06/17 02/11/18 Pantoprazole [Protonix] 40 mg PO DAILY 02/11/18 02/11/18 Ramipril [Altace] 1.25 mg PO DAILY 02/11/18 02/11/18 Review of Systems - Review of Systems Constitutional: Normal Eyes: Normal ENT: Normal Respiratory: Normal Cardiovascular: Normal Gastrointestinal: Normal Genitourinary Male: Normal Musculoskeletal: Normal Skin: Ulcer (1cm ulcer to rigth 1st toe, 2, 5th digit amputation, foul smelling purlent dc), Cellulitis Neurological: Normal Endocrine: Normal Hemo/Lymphatic: Normal Psychiatric: Normal Physical Exam Vital Signs Temp Pulse Resp BP Pulse Ox 02/11/18 17:33 74 18 137/58 L 95 02/11/18 15:27 98.7 F 75 18 108/61 98 Temperature: Afebrile Blood Pressure: Normal Pulse: Regular Respiratory Rate: Normal Appearance: Positive for: Well-Appearing, Non-Toxic, Comfortable Pain Distress: None Mental Status: Positive for: Alert and Oriented X 3 - Systems Exam Head: Present: Atraumatic, Normocephalic Pupils: Present: PERRL Extroacular Muscles: Present: EOMI Conjunctiva: Present: Normal Mouth: Present: Moist Mucous Membranes Neck: Present: Normal Range of Motion Respiratory/Chest: Present: Clear to Auscultation, Good Air Exchange. No: Respiratory Distress, Accessory Muscle Use Cardiovascular: Present: Regular Rate and Rhythm, Normal S1, S2. No: Murmurs Abdomen: No: Tenderness, Distention, Peritoneal Signs Back: Present: Normal Inspection, Other (1cm ulcer to midback. ) Upper Extremity: Present: Normal Inspection. No: Cyanosis, Edema Lower Extremity: Present: Normal Inspection, Other ((+)right 1st toe ulcer, 1-2 cm , wth exposed bone, foul smelling purlent dc ((+)2nd, 5th toe amputation). No: Edema Neurological: Present: GCS=15, CN II-XII Intact, Speech Normal Skin: Present: Warm, Dry, Normal Color. No: Rashes Psychiatric: Present: Alert, Oriented x 3, Normal Insight, Normal Concentration Medical Decision Making ED Course and Treatment: 02/11/18 16:05 cellulitis, infected ulcer ro osteo - Lab Interpretations Lab Results: 02/11/18 16:30 02/11/18 16:30 Lab Results 02/11/18 16:30: Sodium 137, Potassium 3.8, Chloride 97 L, Carbon Dioxide 28, Anion Gap 16, BUN 24 H, Creatinine 0.8, Est GFR ( Amer) > 60, Est GFR ( Non-Af Amer) > 60, Random Glucose 125 H, Calcium 9.1, Total Bilirubin 1.0, AST 42, ALT 16, Alkaline Phosphatase 110, Total Protein 7.9, Albumin 3.7, Globulin 4.2, Albumin/Globulin Ratio 0.9 L 02/11/18 16:30: PT 13.7 H, INR 1.20, APTT 33.5 02/11/18 16:30: WBC 11.0 D, RBC 4.65, Hgb 12.1 L, Hct 36.8 L, MCV 79.1 L, MCH 26.0, MCHC 32.9, RDW 16.6 H, Plt Count 218, MPV 9.8, Gran % 81.5 H, Lymph % ( Auto) 10.9 L, Warren % (Auto) 7.4 H, Eos % (Auto) 0.1 L, Baso % (Auto) 0.1, Gran # 8.98 H, Lymph # (Auto) 1.2, Warren # (Auto) 0.8 H, Eos # (Auto) 0.0, Baso # ( Auto) 0.01, ESR 47 H - RAD Interpretation Radiology Orders: 02/11/18 15:52 FOOT RIGHT 3 VIEWS ROUTINE [RAD] Stat - Medication Orders Current Medication Orders: Aspirin (Aspirin Chewable) 81 mg PO DAILY EZE Atorvastatin Calcium (Lipitor) 40 mg PO HS EZE Last Admin: 02/11/18 22:03 Dose: 40 mg Clonazepam (Klonopin) 1 mg PO BID EZE PRN Reason: Protocol Clopidogrel Bisulfate (Plavix) 75 mg PO DAILY EZE Enoxaparin Sodium (Lovenox) 40 mg SC DAILY EZE PRN Reason: Protocol Vancomycin HCl (Vancomycin 1gm) 1 gm in 250 mls @ 167 mls/hr IVPB Q12 EZE PRN Reason: Protocol Last Admin: 02/11/18 22:03 Dose: 167 mls/hr eMAR Start Stop Document 02/11/18 22:03 MV (Rec: 02/11/18 22:03 MV [id number]) Intravenous Solution Start Date 02/11/18 Start Time 22:03 End Date 02/11/18 End time 23:33 Total Infusion Time 90 Piperacillin Sod/Tazobactam Sod (Zosyn 3.375 In Ns 100ml) 100 mls @ 200 mls/hr IVPB Q6 EZE PRN Reason: Protocol Stop: 02/12/18 18:29 Insulin Human Regular (Humulin R Low) 0 units SC ACHS EZE PRN Reason: Protocol Last Admin: 02/12/18 08:05 Dose: Not Given Non-Admin Reason: Blood Sugar Parameter [facility] Blood Glucose Document 02/12/18 08:05 LO (Rec: 02/12/18 08:05 LO [email or web address]) Blood Glucose Finger Stick Blood Glucose (70-120) 128 Metoprolol Succinate (Toprol Xl) 50 mg PO DAILY EZE Pantoprazole Sodium (Protonix Ec Tab) 40 mg PO 0600 EZE Last Admin: 02/12/18 05:39 Dose: 40 mg Ramipril (Altace) 1.25 mg PO DAILY EZE Discontinued Medications Vancomycin HCl (Vancomycin 1gm) 1 gm in 250 mls @ 167 mls/hr IVPB STAT STA PRN Reason: Protocol Stop: 02/11/18 17:21 Last Admin: 02/11/18 18:02 Dose: 167 mls/hr eMAR Start Stop Document 02/11/18 18:02 SRE (Rec: 02/11/18 18:03 [id number] [id number]) Intravenous Solution Start Date 02/11/18 Start Time 18:02 End Date 02/11/18 End time 19:32 Total Infusion Time 90 Piperacillin Sod/Tazobactam Sod (Zosyn 3.375 In Ns 100ml) 100 mls @ 200 mls/hr IVPB STAT STA PRN Reason: Protocol Stop: 02/11/18 16:21 Last Admin: 02/11/18 17:25 Dose: 200 mls/hr eMAR Start Stop Document 02/11/18 17:25 SRE (Rec: 02/11/18 17:25 [id number] [id number]) Intravenous Solution Start Date 02/11/18 Start Time 17:15 End Date 02/11/18 End time 18:15 Total Infusion Time 60 Piperacillin Sod/Tazobactam Sod (Zosyn 3.375 In Ns 100ml) 100 mls @ 200 mls/hr IVPB Q6 EZE PRN Reason: Protocol Stop: 02/12/18 06:29 Last Admin: 02/12/18 05:39 Dose: 200 mls/hr eMAR Start Stop Document 02/12/18 05:39 MV (Rec: 02/12/18 05:39 MV [id number]) Intravenous Solution Start Date 02/12/18 Start Time 05:39 End Date 02/12/18 End time 06:09 Total Infusion Time 30 Disposition/Present on Arrival - Present on Arrival Any Indicators Present on Arrival: No History of DVT/PE: No History of Uncontrolled Diabetes: No Urinary Catheter: No History of Decub. Ulcer: No History Surgical Site Infection Following: None - Disposition Have Diagnosis and Disposition been Completed?: Yes Diagnosis: Osteomyelitis, Wound infection, Cellulitis Disposition: HOSPITALIZED Disposition Time: 04:00 Condition: STABLE
[2018-02-11 16:56] LABS: BASO # 0.01 K/mm3 (0.0-2.0); BASO % 0.1 % (0.0-3.0); EOS % 0.1 % (1.5-5.0); GRAN # 8.98 (1.4-6.5); GRAN % 81.5 % (50.0-68.0); HEMOGLOBIN 12.1 g/dL (14.0-18.0); LYMPH # 1.2 (1.2-3.4); LYMPH % 10.9 % (22.0-35.0); MEAN CELL VOLUME 79.1 fl (80.0-105.0); MEAN CORPUSCULAR HGB CONC 32.9 g/dl (31.0-37.0); MEAN PLATELET VOLUME 9.8 fl (7.0-11.0); MONO # 0.8 (0.1-0.6); MONO % 7.4 % (1.0-6.0); RBC 4.65 10^6/uL (3.5-6.1); RED CELL DISTRIBUTION WIDTH 16.6 % (11.5-14.5)
[2018-02-11 17:00] LABS: INR 1.2; PARTIAL THROMBOPLASTIN TIME 33.5 Seconds (25.1-36.5); PROTHROMBIN TIME 13.7 SECONDS (9.4-12.5)
[2018-02-11 17:01] LABS: ALB/GLOB RATIO 0.9 (1.1-1.8); ALBUMIN 3.7 g/dL (3.0-4.8); ALT/SGPT 16 U/L (7-56); AST/SGOT 42 U/L (17-59); BLOOD UREA NITROGEN 24 mg/dL (7-21); CALCIUM 9.1 mg/dL (8.4-10.5); GFR AFRICAN-AMERICAN > 60; GFR NON-AFRICAN AMERICAN > 60
--- NOTE | 2018-02-11 20:20 | CP.PCM.HP ---
<Sally Loyola - Last Filed: 02/11/18 20:56> History of Present Illness - History of Present Illness History of Present Illness: 68 year old male with past medical history of diabetes mellitus type 2, hypertension, hyperlipidemia, osteomyelitis s/p 4th and 5th right toe amputation , coronary artery disease s/p CABGx3 in 2006 presents with right 1st toe wound that has been present for "a few years". Today, patient is complaining of right foot pain and numbness and right first toe bleed. Patient reports that wound is erythematous, warm, edema, discharge, and malodor. Patient also reports dark urine. Patient denies fever, dizziness, chest pain, heart palpitations, shortness of breath, nausea, vomiting, constipation, diarrhea, and dysuria. On previous admission in 03/2017, patient had similar symptoms leading to a diagnosis of osteomyelitis and leading to amputation of the 4th and 5th toes. Past medical history: as noted above in HPI Past surgial history: osteomyelitis of the spine with decompression and laminectomy in 2015, 4th and 5th toe amputation in 03/2017 Family history: mother from leukemia, father from vague chest pain Social History: has smoked 1/2 pack per day for 50 years, drinks 1/2 pint of alcohol a month. Stopped one year ago. Patient denies any previous recreational drug use. PMD: Dr. Keen Surgery: Dr. Saucedo Podiatry: Dr. Rich Pharmacy: [facility] Insurance: Patient claims he does not know what insurance he has. Present on Admission - Present on Admission Any Indicators Present on Admission: No History of DVT/PE: No History of Uncontrolled Diabetes: No Review of Systems - Constitutional Constitutional: absent: Anorexia, Chills, Fever - Cardiovascular Cardiovascular: absent: Chest Pain, Chest Pain at Rest, Dyspnea, Dyspnea on Exertion - Respiratory Respiratory: absent: Cough, Dyspnea - Gastrointestinal Gastrointestinal: absent: Abdominal Pain, Constipation, Diarrhea, Vomiting - Musculoskeletal Musculoskeletal: absent: Muscle Weakness - Integumentary Integumentary: absent: Dry Skin, Erythema - Neurological Neurological: Numbness Past Patient History - Infectious Disease Hx of Infectious Diseases: None - Tetanus Immunizations Tetanus Immunization: Unknown - Past Social History Smoking Status: Former Smoker Alcohol: Other (history of drinking 1 pint per week. stopped 1 year ago) Drugs: Denies - CARDIAC Hx Cardia Arrhythmia: No Hx Congestive Heart Failure: No Hx Hypertension: Yes Hx Mitral Valve Prolapse: No Hx Pacemaker: No Hx Peripheral Edema: No - PULMONARY Hx Asthma: No Hx Bronchitis: No Hx Chronic Obstructive Pulmonary Disease (COPD): No Hx Emphysema: No Hx Pneumonia: Yes Hx Sleep Apnea: No - NEUROLOGICAL Hx Alzheimer's Disease: No Hx Dementia: No Hx Migraine: Yes Hx Parkinson's Disease: No Hx Seizures: No Hx Transient Ischemic Attacks (TIA): No - HEENT Hx HEENT Problems: No - RENAL Hx Chronic Kidney Disease: No Hx Kidney Stones: No - ENDOCRINE/METABOLIC Hx Hyperthyroidism: No Hx Hypothyroidism: No - HEMATOLOGICAL/ONCOLOGICAL Hx Anemia: No Hx Sickle Cell Disease: No - INTEGUMENTARY Hx Dermatological Problems: Yes (RIGHT 2ND TOE AND 5TH TOE AMPUTATED) - MUSCULOSKELETAL/RHEUMATOLOGICAL Hx Arthritis: No Hx Fractures: No Hx Osteoporosis: No - GASTROINTESTINAL Hx Crohn's Disease: No Hx Diverticulitis: No Hx Gall Bladder Disease: Yes Hx Pancreatitis: No - GENITOURINARY/GYNECOLOGICAL Hx Sexually Transmitted Disorders: No - PSYCHIATRIC Hx Anxiety: Yes Hx Depression: Yes (pt reports periods of sadness) Hx Substance Use: No - SURGICAL HISTORY Hx Appendectomy: Yes Hx Cholecystectomy: Yes Hx Coronary Artery Bypass Graft: Yes Hx Coronary Stent: Yes (X 3) - ANESTHESIA Hx Anesthesia: Yes Hx Anesthesia Reactions: No Hx Malignant Hyperthermia: No Meds Allergies/Adverse Reactions: Allergies Allergy/AdvReac Type Severity Reaction Status Date / Time No Known Allergies Allergy Verified 02/11/18 15:33 Physical Exam - Constitutional Appears: Well, Non-toxic - Head Exam Head Exam: ATRAUMATIC, NORMOCEPHALIC - Eye Exam Eye Exam: EOMI, PERRL - Respiratory Exam Respiratory Exam: Clear to Auscultation Bilateral, NORMAL BREATHING PATTERN - Cardiovascular Exam Cardiovascular Exam: REGULAR RHYTHM, RRR - GI/Abdominal Exam GI & Abdominal Exam: Normal Bowel Sounds, Soft - Extremities Exam Extremities exam: Positive for: full ROM, pedal edema Additional comments: Bilateral extremities have hyperpigmentation on bilateral extremities below the knees. Right pedal edema, amputation of 4th and 5th digits on right foot. Wound on right 1st toe. Erythema, discharge, malodor present. Results - Vital Signs Recent Vital Signs: Last Vital Signs Temp 98.4 F 02/11/18 18:28 Pulse 74 02/11/18 18:28 Resp 18 02/11/18 18:28 BP 137/58 L 02/11/18 18:28 Pulse Ox 95 02/11/18 18:28 - Labs Result Diagrams: 02/11/18 16:30 02/11/18 16:30 Assessment & Plan - Assessment and Plan (Free Text) Assessment: 68 year old male with past medical history of diabetes mellitus type 2, hypertension, hyperlipidemia, osteomyelitis s/p 4th and 5th right toe amputation , coronary artery disease s/p CABGx3 in 2006 presents with right 1st toe wound that has been present for "a few years". Plan: Osteomyelitis of right foot -Right foot X ray ordered -Emperic Vancomycin 1 gm and zosyn 3.375 mg daily -Doppler ultrasound ordered to rule out DVT Microcytic anemia -Hgb: 12.1. Baseline ranges from 9.2-11.5 -Continue to monitor History of diabetes mellitus type 2 -Random glucose: 125 -Patient started on low dose lispro sliding scale insulin History of Coronary Artery Disease -Status post CABGx3 -aspirin 81 mg daily -lipitor 40 mg daily -plavix 75 mg daily -ramipril 1.25 mg daily -metoprolol succinate 50 mg daily History of Hyperlipidemia -lipitor 40 mg daily History of Hypertension -BP: 137/58 -ramipril 1.25 mg daily -metoprolol succinate 50 mg daily History of anxiety -clonazepam 1 mg BID History of Hyperlipidemia -lipitor 40 mg daily History of chronic pain on methadone -Patient takes methadone [address] Villa. -Will speak to [facility] pharmacy to confirm dose. -Patient was last on home 30 mg PO BID as per previous note GI prophylaxis: protonix 40 mg daily DVT prophylaxis: lovenox 40 mg daily - Date & Time Date: 02/11/18 Time: 20:27 <Kuldip Bal - Last Filed: 02/12/18 14:38> Results - Vital Signs Recent Vital Signs: Last Vital Signs Temp 97.6 F 02/12/18 08:01 Pulse 43 L 02/12/18 09:37 Resp 20 02/12/18 08:01 BP 126/62 02/12/18 09:34 Pulse Ox 96 02/12/18 08:01 - Labs Result Diagrams: 02/12/18 07:30 02/12/18 07:30 Labs: Laboratory Results - last 24 hr 02/12/18 02/12/18 02/12/18 06:30 07:30 07:30 WBC 6.4 D RBC 3.94 Hgb 10.1 L D Hct 31.6 L MCV 80.2 MCH 25.6 MCHC 32.0 RDW 16.8 H Plt Count 169 MPV 9.4 Gran % 70.6 H Lymph % (Auto) 17.6 L [place] % (Auto) 9.6 H Eos % (Auto) 1.9 Baso % (Auto) 0.3 Gran # 4.49 Lymph # (Auto) 1.1 L [place] # (Auto) 0.6 Eos # (Auto) 0.1 Baso # (Auto) 0.02 Sodium 138 Potassium 3.5 L Chloride 102 Carbon Dioxide 29 Anion Gap 11 BUN 18 Creatinine 0.8 Est GFR ( Amer) > 60 Est GFR (Non-Af Amer) > 60 Random Glucose 87 Calcium 8.7 Total Bilirubin 0.8 AST 27 ALT 23 Alkaline Phosphatase 77 C-React Prot High Sens > 15.00 H Total Protein 6.6 Albumin 2.9 L Globulin 3.6 Albumin/Globulin Ratio 0.8 L Attending/Attestation - Attestation I have personally seen and examined this patient.: Yes I have fully participated in the care of the patient.: Yes I have reviewed all pertinent clinical information: Yes Notes (Text): 02/12/18 14:22 02/12/18 14:38
[2018-02-11] MEDS: Insulin Reg-LOW-Coverage SC SCH (22:03)
[2018-02-11] MEDS: Vancomycin 1gm in NS 250ml 1 GM/250 ML BAG IVPB SCH (22:03)
[2018-02-11] MEDS: Piperacillin/Tazobact 3.375 gm 100 ML IVPB SCH (23:21)
[2018-02-12] MEDS: Piperacillin/Tazobact 3.375 gm 100 ML IVPB SCH ×3 (05:39→23:52)
[2018-02-12] MEDS: Pantoprazole 40 mg EC Tab PO SCH (05:39)
[2018-02-12 08:03] LABS: BASO # 0.02 K/mm3 (0.0-2.0); BASO % 0.3 % (0.0-3.0); EOS # 0.1 (0.0-0.7); EOS % 1.9 % (1.5-5.0); GRAN # 4.49 (1.4-6.5); GRAN % 70.6 % (50.0-68.0); HEMOGLOBIN 10.1 g/dL (14.0-18.0); LYMPH # 1.1 (1.2-3.4); LYMPH % 17.6 % (22.0-35.0); MEAN CELL VOLUME 80.2 fl (80.0-105.0); MEAN CORPUSCULAR HEMOGLOBIN 25.6 pg (25.0-35.0); MEAN PLATELET VOLUME 9.4 fl (7.0-11.0); MONO # 0.6 (0.1-0.6); MONO % 9.6 % (1.0-6.0); RBC 3.94 10^6/uL (3.5-6.1); RED CELL DISTRIBUTION WIDTH 16.8 % (11.5-14.5); WHITE BLOOD COUNT 6.4 10^3/ul (4.5-11.0)
[2018-02-12] MEDS: Insulin Reg-LOW-Coverage SC SCH ×4 (08:05→22:02)
--- NOTE | 2018-02-12 08:20 | CP.PCM.PN ---
<Gary Meade - Last Filed: 02/12/18 11:23> Subjective - Date & Time of Evaluation Date of Evaluation: 02/12/18 Time of Evaluation: 08:17 - Subjective Subjective: Gary Meade DO PGY1 Internal Medicine Compound Filler - Hospital Progress Note Pt. seen and evaluated at bedside this morning No acute events overnight No complaints voiced at this time Denies F/ Chills, SOB, Cough, CP, Palpitations, Abd pain, N/V/D/C 12 system ROS otherwise negative Objective - Vital Signs/Intake and Output Vital Signs (last 24 hours): Temp Pulse Resp BP Pulse Ox 97.6 F 43 L 20 116/62 96 02/12/18 08:01 02/12/18 08:01 02/12/18 08:01 02/12/18 08:01 02/12/18 08:01 Intake and Output: 02/12/18 02/12/18 06:59 18:59 Intake Total 1070 Output Total 625 Balance 445 - Medications Medications: Current Medications Aspirin (Aspirin Chewable) 81 mg PO DAILY [facility] Atorvastatin Calcium (Lipitor) 40 mg PO HS [facility] Last Admin: 02/11/18 22:03 Dose: 40 mg Clonazepam (Klonopin) 1 mg PO BID [facility] PRN Reason: Protocol Clopidogrel Bisulfate (Plavix) 75 mg PO DAILY [facility] Enoxaparin Sodium (Lovenox) 40 mg SC DAILY [facility] PRN Reason: Protocol Vancomycin HCl (Vancomycin 1gm) 1 gm in 250 mls @ 167 mls/hr IVPB Q12 [facility] PRN Reason: Protocol Last Admin: 02/11/18 22:03 Dose: 167 mls/hr Piperacillin Sod/Tazobactam Sod (Zosyn 3.375 In Ns 100ml) 100 mls @ 200 mls/hr IVPB Q6 [facility] PRN Reason: Protocol Stop: 02/12/18 18:29 Insulin Human Regular (Humulin R Low) 0 units SC ACHS [facility] PRN Reason: Protocol Last Admin: 02/12/18 08:05 Dose: Not Given Metoprolol Succinate (Toprol Xl) 50 mg PO DAILY [facility] Pantoprazole Sodium (Protonix Ec Tab) 40 mg PO 0600 [facility] Last Admin: 02/12/18 05:39 Dose: 40 mg Ramipril (Altace) 1.25 mg PO DAILY [facility] - Labs Labs: PT 13.7 SECONDS (9.4-12.5) H 02/11/18 16:30 INR 1.20 02/11/18 16:30 APTT 33.5 Seconds (25.1-36.5) 02/11/18 16:30 - Constitutional Appears: Well, Non-toxic, No Acute Distress - Head Exam Head Exam: ATRAUMATIC, NORMOCEPHALIC - Eye Exam Eye Exam: EOMI, PERRL. absent: Scleral icterus - ENT Exam ENT Exam: Mucous Membranes Moist - Respiratory Exam Respiratory Exam: Clear to Ausculation Bilateral, NORMAL BREATHING PATTERN. absent: Rales, Rhonchi, Wheezes, Respiratory Distress - Cardiovascular Exam Cardiovascular Exam: RRR, +S1, +S2. absent: Murmur - GI/Abdominal Exam GI & Abdominal Exam: Soft, Normal Bowel Sounds. absent: Tenderness, Mass - Extremities Exam Additional comments: RLE Pedal edema 1+ non pitting; chronic venostatic dermatitis present on BL LE 4th + 5th digits of R foot amputed. 1st toe with wound/ulceration; erythematous with discharge. No dressing in place at this time. - Back Exam Back Exam: absent: CVA tenderness (L), CVA tenderness (R) - Neurological Exam Neurological Exam: Alert, Awake, CN II-XII Intact, Oriented x3 - Psychiatric Exam Psychiatric exam: Normal Affect, Normal Mood - Skin Skin Exam: Dry, Intact, Normal Color, Warm Assessment and Plan - Assessment and Plan (Free Text) Assessment: 68 year old male with past medical history of diabetes mellitus type 2, hypertension, hyperlipidemia, osteomyelitis s/p 4th and 5th right toe amputation , coronary artery disease s/p CABGx3 in 2006 presents with right 1st toe wound that has been present for "a few years". Plan: R first toe ulceration; r/o osteo R foot X-Ray - no bony involvment of the Right first toe - Offiical read pending Lower extremity arterial ultra sound to assess vascularization- official read pending -Afebrile; WBC wnl -c/w Zosyn -C/w Vancomycin Podiatry following, appreciate reccs ID following, appreciate reccs Microcytic anemia -Hgb: 12.1. Baseline ranges from 9.2-11.5 -Continue to monitor; HD stable at this time History of diabetes mellitus type 2 -ISS low History of Coronary Artery Disease -Status post CABGx3 -aspirin 81 mg daily -lipitor 40 mg daily -plavix 75 mg daily -ramipril 1.25 mg daily -metoprolol succinate 50 mg daily History of Hyperlipidemia -lipitor 40 mg daily History of Hypertension -ramipril 1.25 mg daily -metoprolol succinate 50 mg daily History of anxiety -clonazepam 1 mg BID History of Hyperlipidemia -lipitor 40 mg daily History of chronic pain on methadone -Patient takes methadone 30mg BID. Prescribed by Dr. Villa; [facility] pharmacy confirmed methadone dosage as of 02/02 - 30mg BID -Restarted home methadone 30mg BID -Started colace 100mg BID GI prophylaxis: protonix 40 mg daily DVT prophylaxis: lovenox 40 mg daily <Kuldip Bal - Last Filed: 02/12/18 14:42> Objective - Vital Signs/Intake and Output Vital Signs (last 24 hours): Temp Pulse Resp BP Pulse Ox 97.6 F 43 L 20 126/62 96 02/12/18 08:01 02/12/18 09:37 02/12/18 08:01 02/12/18 09:34 02/12/18 08:01 Intake and Output: 02/12/18 02/12/18 06:59 18:59 Intake Total 1070 Output Total 625 Balance 445 - Medications Medications: Current Medications Aspirin (Aspirin Chewable) 81 mg PO DAILY [facility] Last Admin: 02/12/18 09:35 Dose: 81 mg Atorvastatin Calcium (Lipitor) 40 mg PO HS [facility] Last Admin: 02/11/18 22:03 Dose: 40 mg Clonazepam (Klonopin) 1 mg PO BID [facility] PRN Reason: Protocol Last Admin: 02/12/18 09:35 Dose: 1 mg Clopidogrel Bisulfate (Plavix) 75 mg PO DAILY [facility] Last Admin: 02/12/18 09:38 Dose: 75 mg Docusate Sodium (Colace) 100 mg PO BID [facility] Last Admin: 02/12/18 12:34 Dose: 100 mg Enoxaparin Sodium (Lovenox) 40 mg SC DAILY [facility] PRN Reason: Protocol Last Admin: 02/12/18 09:36 Dose: 40 mg Vancomycin HCl (Vancomycin 1gm) 1 gm in 250 mls @ 167 mls/hr IVPB Q12 [facility] PRN Reason: Protocol Last Admin: 02/12/18 09:38 Dose: 167 mls/hr Piperacillin Sod/Tazobactam Sod (Zosyn 3.375 In Ns 100ml) 100 mls @ 200 mls/hr IVPB Q6 [facility] PRN Reason: Protocol Stop: 02/12/18 18:29 Last Admin: 02/12/18 11:32 Dose: 200 mls/hr Insulin Human Regular (Humulin R Low) 0 units SC ACHS [facility] PRN Reason: Protocol Last Admin: 02/12/18 12:29 Dose: Not Given Methadone HCl (Methadone) 30 mg PO Q12 [facility] Last Admin: 02/12/18 12:35 Dose: 30 mg Metoprolol Succinate (Toprol Xl) 50 mg PO DAILY [facility] Last Admin: 02/12/18 09:37 Dose: Not Given Pantoprazole Sodium (Protonix Ec Tab) 40 mg PO 0600 [facility] Last Admin: 02/12/18 05:39 Dose: 40 mg Ramipril (Altace) 1.25 mg PO DAILY [facility] Last Admin: 02/12/18 09:34 Dose: 1.25 mg - Labs Labs: 02/12/18 07:30 02/12/18 07:30 PT 13.7 SECONDS (9.4-12.5) H 02/11/18 16:30 INR 1.20 02/11/18 16:30 APTT 33.5 Seconds (25.1-36.5) 02/11/18 16:30 Attending/Attestation - Attestation I have personally seen and examined this patient.: Yes I have fully participated in the care of the patient.: Yes I have reviewed all pertinent clinical information, including history, physical exam and plan: Yes Notes (Text): 02/12/18 14:39 Medical record note made by the resident after discussion with my direction and input after the patient was personally seen and examined by me. I have reviewed the chart and agree that the record accurately reflects by personal performance of the history, physical exam, data review, and medical decision-making, in the course for the patient. I have also personally directed the plan of care. 67 yo M with PMH of CAD ,SP stents and CABG,NIDDM, HTN, HLD and SP treatment of osteomylitis of right 4th and 5th metatarsals in October 2017, was admitted with right foot diabetic infected big toe ulcer,X rays of foot is suggestive of right foot MIP osteomylitis on IV Vancomycin and Zosyn.We will get MRI of foot. Podiatry evaluation is appreciated. We will follow up arterial doppler. Management plan was discussed in detail with patient. Education was provided.
[2018-02-12 08:23] LABS: ALB/GLOB RATIO 0.8 (1.1-1.8); ALBUMIN 2.9 g/dL (3.0-4.8); ALT/SGPT 23 U/L (7-56); AST/SGOT 27 U/L (17-59); BLOOD UREA NITROGEN 18 mg/dL (7-21); CALCIUM 8.7 mg/dL (8.4-10.5); GFR AFRICAN-AMERICAN > 60; GFR NON-AFRICAN AMERICAN > 60
[2018-02-12] MEDS: Enoxaparin 40 mg Syringe SC SCH (09:36)
[2018-02-12] MEDS: Vancomycin 1gm in NS 250ml 1 GM/250 ML BAG IVPB SCH ×2 (09:38→21:47)
[2018-02-12] MEDS ORDERED: Metoprolol Succinate 50 mg XL Tab PO SCH (10:00)
--- NOTE | 2018-02-12 11:49 | CON ---
Copied To: Kishan Fry DPM Attending MD: Kishan Fry DPM DATE: 02/12/2018 HISTORY OF PRESENT ILLNESS: A 68-year-old diabetic male well known to the [facility] team seen at bedside for consultation, evaluation and management of a diabetic ulceration on the right hallux. Mr. Cote is a patient of Dr. Rich, but has not followed up and has been noncompliant with followup and subsequently developed the ulceration over the last week and when the wound turned red, hot and swollen with discharge, he decided to go to the Emergency Room for admittance. PAST MEDICAL HISTORY: Significant for long-standing insulin-dependent diabetes with peripheral arterial disease and peripheral neuropathy, essential hypertension, hyperlipidemia, coronary artery disease and spinal stenosis. PAST SURGICAL HISTORY: Includes right fourth and fifth toe amputations secondary to osteomyelitis and osteomyelitis of the spine with decompression and laminectomy in 2016. SOCIAL HISTORY The patient is , smokes a half-a-pack a day for 50 years. Drinks alcohol socially, currently on methadone 30 mg daily. FAMILY HISTORY: Mother contracted leukemia. MEDICATIONS: Noted in MAR. Home medications include Toprol-XL, Protonix, Altace, methadone, 81 mg of aspirin, Januvia, Plavix, Lipitor and Klonopin. ALLERGIES: HE HAS NO KNOWN DRUG ALLERGIES. PHYSICAL EXAMINATION: VITAL SIGNS: The patient's temperature is 97.6, pulse rate of 43, blood pressure of 116/62, respiratory rate of 20. DATA: Laboratory findings reveal a white count of 6.4 down from 11 yesterday. Hemoglobin of 10.1, hematocrit of 31.6, platelet count of 169. His ESR is elevated at 47. The x-ray reveals cortical erosion of the base of the distal phalanx and head of the proximal phalanx on the first digit, which is noted to be dislocated. There are postsurgical changes noted on the second, third, fourth and fifth metatarsals which are more indicative of metatarsal resections than osteomyelitis, awaiting Radiology report. ABIs and PVRs were examined and unfortunately, there is adequate blood flow everywhere except to the right metatarsals, which has an amplitude of 3 mm, which indicates severely compromised perfusion. OBJECTIVE: Weakly palpable posterior tibial pulse noted bilaterally. Absent dorsalis pedis pulse noted bilaterally. Lower extremity skin presents thin, shining discoloration bilaterally. The patient is unable to detect 5.07 g monofilament wire testing bilaterally. Capillary filling time is delayed on all the digits. There is noted to be amputated right fourth and fifth digits. There is a full-thickness ulceration located on the plantar aspect of the right hallux, which is severely contracted and dislocated. wound probes to bone, there is no malodor, there is no purulence. Base of the wound is primarily granular. Entire right hallux is edematous and erythematous. There are no signs of underlying abscess formation. ASSESSMENT: Full-thickness ulceration to the right plantar hallux, osteomyelitis must be ruled out. PLAN: The patient was seen and examined. Culture was taken and submitted for sensitivities. X-rays and PVRs and ABIs were all reviewed. We will order an MRI to rule out osteomyelitis and arterial Dopplers to ascertain lower extremity perfusion. Recommend Infectious Disease consult to evaluate cultures and sensitivities taken today and prescribe accordingly. Recommend vascular consult by Dr. Leif Lyons for possible Interventional Radiology, pending arterial Doppler results. His wound was cleansed with normal sterile saline. We will apply Bactroban and a dry sterile dressing daily. We will order a forefoot offloading shoe to offload the area of ulceration. Before any surgical intervention is attempted, we must establish adequate perfusion levels to the right hallux in an effort to avoid exacerbating his condition and causing a below-knee amputation. We will await all testing results and the patient will be seen daily. Kishan Fry DPM JEN
[2018-02-12] MEDS ORDERED: Piperacillin/Tazobact 3.375 gm 100 ML IVPB SCH (12:00)
--- NOTE | 2018-02-12 13:40 | RAD ---
Date of service: 02/11/2018 PROCEDURE: Right Foot Radiographs. HISTORY: 1st toe ulcer COMPARISON: Comparison made with prior radiographs of the right foot dated 10/06/2017 FINDINGS: BONES: Marked soft tissue swelling right great toe with apparent dorsal subluxation of the distal phalanx. Questionable on small amount subcutaneous air. . There may also be early destructive changes along the joint space margins DIP joint. Findings likely represent a osteomyelitis and cellulitis Apparent amputation changes of the second 3rd 4th and 5th metatarsals as well as the digits of the 5th and possibly 4th toes. JOINTS: As above SOFT TISSUES: As above OTHER FINDINGS: None. IMPRESSION: Marked soft tissue swelling right great toe with what may represent destructive changes of the joint margins of the DIP joint. Questionable small amount subcutaneous air. Findings likely represent osteomyelitis and cellulitis
--- NOTE | 2018-02-12 15:48 | CT ---
Date of service: 02/12/2018 PROCEDURE: CT Thoracic Spine without contrast HISTORY: Draining wound on back w/ h/o laminectomy in area COMPARISON: None available. TECHNIQUE: Axial computed tomography images were obtained of the thoracic spine without intravenous contrast. Coronal and sagittal reformatted images were created and reviewed. Radiation dose: Total exam DLP = 495.72 mGy-cm. This CT exam was performed using one or more of the following dose reduction techniques: Automated exposure control, adjustment of the mA and/or kV according to patient size, and/or use of iterative reconstruction technique. FINDINGS: VERTEBRAE: Apparent chronic anterior wedge compression fractures of the T6 and T7 segments with apparent fusion of the C2 vertebral bodies. There is associated kyphotic angulation deformity at this level. Multilevel bilateral laminectomy involving the, T5 T6, T7, and upper T8 segments. . Additionally, there has been posterior fixation accomplished by placement long segment bilateral Dhaliwal rods which are attached to the right and left pedicles of the T4, T5, T8 and T9 segments. Stabilizing crossbar is are noted at the T5-T6 and T8-T9 levels. . . DISCS/SPINAL CANAL/NEURAL FORAMINA: Multilevel degenerative spondylosis of the thoracic spine. Varying degrees of disc space narrowing endplate eburnation with multilevel anterior bridging osteophyte formation. PARASPINAL SOFT TISSUES: There is a poorly defined elliptical shaped mid paraspinal fluid collection which is seen extending from the T4-T5 disc space level. Inferiorly to at least the lower T5 level with a bubble of air seen centrally. This collection measures approximately 2.8 cm trans times 1.7 cm AP. Findings may represent a small abscess collection. Note that the subjacent posterior elements upper poorly seen due to streak and beam hardening artifact and it is unclear whether there are any destructive changes of the subjacent cortices of the T4 and T5 segments. Hardware itself does appear intact so far as can be seen OTHER FINDINGS: Mild bibasilar atelectasis right greater than left. IMPRESSION: Chronic appearing anterior wedge compression fractures of the T6 and T7 segments which appear fused. Associate kyphotic angulation deformity present at this level. On multilevel bilateral laminectomy and posterior fixation as detailed above. There is a small elliptical shaped fluid collection within the mid posterior paraspinal soft tissues associate with a bubble of air consistent with abscess collection which extends from approximately T4-T5 disc space level inferiorly to at least the lower T5 level. Due to streak and beam hardening artifact it is unclear whether there are any cortical destructive changes of the subjacent cortices of the T4 and T5 segments. Hardware appears intact so far as can be determined.
--- NOTE | 2018-02-12 15:59 | CP.PCM.CON ---
History of Present Illness - History of Present Illness History of Present Illness: Infectious Disease Consultation: February 12, 2018 68 yo male came to [facility] for worsening right foot pain and bleeding of the right foot first toe. The patient has an extensive medical history that includes AD s /p stents and CABG, DM, HTN, and HLD. The patient has had several hospitalization to [facility]. He was having persistent seepage and drainage from the right great toe back in October 2017 when I treated the patient for osteomyelitis. Started on Zosyn and IV Vancomycin for care at that time. PMHx: type 2 diabetes mellitus, CAD, hypertension, dyslipidemia, PVD, chronic venous stasis, hyperlipidemia, prior osteomyelitis episodes. PSHx: CABG x3 vessels 2006, left 2nd toe resection and 2nd metatarsal resection. T spine fusion 2015. Laproscopic cholecystectomy 2014. Partial ampuation of the right 2 and 5th digits 2015. March 2017 amputation of 4th and 5th digits of the right foot. Allergies: NKDA Social Hx: Hx of tobacco use, alcohol abuse history, denies drug use but is on methadone for lower back pain. Intranasal cocaine use in the past. 1/2 ppd for 50 years in past. had drank 1/2 pint of hard liquor in the past. Active Medications Aspirin (Aspirin Chewable) 81 mg PO DAILY [facility] Last Admin: 02/12/18 09:35 Dose: 81 mg Atorvastatin Calcium (Lipitor) 40 mg PO HS [facility] Last Admin: 02/11/18 22:03 Dose: 40 mg Clonazepam (Klonopin) 1 mg PO BID [facility] PRN Reason: Protocol Last Admin: 02/12/18 09:35 Dose: 1 mg Clopidogrel Bisulfate (Plavix) 75 mg PO DAILY [facility] Last Admin: 02/12/18 09:38 Dose: 75 mg Docusate Sodium (Colace) 100 mg PO BID [facility] Last Admin: 02/12/18 12:34 Dose: 100 mg Enoxaparin Sodium (Lovenox) 40 mg SC DAILY [facility] PRN Reason: Protocol Last Admin: 02/12/18 09:36 Dose: 40 mg Vancomycin HCl (Vancomycin 1gm) 1 gm in 250 mls @ 167 mls/hr IVPB Q12 [facility] PRN Reason: Protocol Last Admin: 02/12/18 09:38 Dose: 167 mls/hr Piperacillin Sod/Tazobactam Sod (Zosyn 3.375 In Ns 100ml) 100 mls @ 200 mls/hr IVPB Q6 [facility] PRN Reason: Protocol Stop: 02/12/18 18:29 Last Admin: 02/12/18 11:32 Dose: 200 mls/hr Insulin Human Regular (Humulin R Low) 0 units SC ACHS [facility] PRN Reason: Protocol Last Admin: 02/12/18 12:29 Dose: Not Given Methadone HCl (Methadone) 30 mg PO Q12 [facility] Last Admin: 02/12/18 12:35 Dose: 30 mg Metoprolol Succinate (Toprol Xl) 50 mg PO DAILY [facility] Last Admin: 02/12/18 09:37 Dose: Not Given Pantoprazole Sodium (Protonix Ec Tab) 40 mg PO 0600 [facility] Last Admin: 02/12/18 05:39 Dose: 40 mg Ramipril (Altace) 1.25 mg PO DAILY [facility] Last Admin: 02/12/18 09:34 Dose: 1.25 mg Family Hx: none given ROS: poor healing of right foot. No fevers or chills, no nausea, no vomiting, headaches, dizziness, hearing, vision. No chest pain or abdominal pain. No melena, hematuria, hematemesis, hematochezia. Past Patient History - Infectious Disease Hx of Infectious Diseases: None - Tetanus Immunizations Tetanus Immunization: Unknown - Past Social History Smoking Status: Former Smoker - CARDIAC Hx Cardia Arrhythmia: No Hx Congestive Heart Failure: No Hx Hypertension: Yes Hx Mitral Valve Prolapse: No Hx Pacemaker: No Hx Peripheral Edema: No - PULMONARY Hx Asthma: No Hx Bronchitis: No Hx Chronic Obstructive Pulmonary Disease (COPD): No Hx Emphysema: No Hx Pneumonia: Yes Hx Sleep Apnea: No - NEUROLOGICAL Hx Alzheimer's Disease: No Hx Dementia: No Hx Migraine: Yes Hx Parkinson's Disease: No Hx Seizures: No Hx Transient Ischemic Attacks (TIA): No - HEENT Hx HEENT Problems: No - RENAL Hx Chronic Kidney Disease: No Hx Kidney Stones: No - ENDOCRINE/METABOLIC Hx Hyperthyroidism: No Hx Hypothyroidism: No - HEMATOLOGICAL/ONCOLOGICAL Hx Anemia: No Hx Sickle Cell Disease: No - INTEGUMENTARY Hx Dermatological Problems: Yes (RIGHT 2ND TOE AND 5TH TOE AMPUTATED) - MUSCULOSKELETAL/RHEUMATOLOGICAL Hx Arthritis: No Hx Fractures: No Hx Osteoporosis: No - GASTROINTESTINAL Hx Crohn's Disease: No Hx Diverticulitis: No Hx Gall Bladder Disease: Yes Hx Pancreatitis: No - GENITOURINARY/GYNECOLOGICAL Hx Sexually Transmitted Disorders: No - PSYCHIATRIC Hx Anxiety: Yes Hx Depression: Yes (pt reports periods of sadness) Hx Substance Use: No - SURGICAL HISTORY Hx Appendectomy: Yes Hx Cholecystectomy: Yes Hx Coronary Artery Bypass Graft: Yes Hx Coronary Stent: Yes (X 3) - ANESTHESIA Hx Anesthesia: Yes Hx Anesthesia Reactions: No Hx Malignant Hyperthermia: No Meds Allergies/Adverse Reactions: Allergies Allergy/AdvReac Type Severity Reaction Status Date / Time No Known Allergies Allergy Verified 02/11/18 15:33 - Medications Medications: Current Medications Aspirin (Aspirin Chewable) 81 mg PO DAILY [facility] Last Admin: 02/12/18 09:35 Dose: 81 mg Atorvastatin Calcium (Lipitor) 40 mg PO HS [facility] Last Admin: 02/11/18 22:03 Dose: 40 mg Clonazepam (Klonopin) 1 mg PO BID [facility] PRN Reason: Protocol Last Admin: 02/12/18 09:35 Dose: 1 mg Clopidogrel Bisulfate (Plavix) 75 mg PO DAILY [facility] Last Admin: 02/12/18 09:38 Dose: 75 mg Docusate Sodium (Colace) 100 mg PO BID [facility] Last Admin: 02/12/18 12:34 Dose: 100 mg Enoxaparin Sodium (Lovenox) 40 mg SC DAILY [facility] PRN Reason: Protocol Last Admin: 02/12/18 09:36 Dose: 40 mg Vancomycin HCl (Vancomycin 1gm) 1 gm in 250 mls @ 167 mls/hr IVPB Q12 [facility] PRN Reason: Protocol Last Admin: 02/12/18 09:38 Dose: 167 mls/hr Piperacillin Sod/Tazobactam Sod (Zosyn 3.375 In Ns 100ml) 100 mls @ 200 mls/hr IVPB Q6 [facility] PRN Reason: Protocol Stop: 02/12/18 18:29 Last Admin: 02/12/18 11:32 Dose: 200 mls/hr Insulin Human Regular (Humulin R Low) 0 units SC ACHS [facility] PRN Reason: Protocol Last Admin: 02/12/18 12:29 Dose: Not Given Methadone HCl (Methadone) 30 mg PO Q12 [facility] Last Admin: 02/12/18 12:35 Dose: 30 mg Metoprolol Succinate (Toprol Xl) 50 mg PO DAILY [facility] Last Admin: 02/12/18 09:37 Dose: Not Given Pantoprazole Sodium (Protonix Ec Tab) 40 mg PO 0600 [facility] Last Admin: 02/12/18 05:39 Dose: 40 mg Ramipril (Altace) 1.25 mg PO DAILY [facility] Last Admin: 02/12/18 09:34 Dose: 1.25 mg Physical Exam - Constitutional Appears: Non-toxic, No Acute Distress, Chronically Ill - Head Exam Head Exam: ATRAUMATIC, NORMOCEPHALIC - Eye Exam Eye Exam: EOMI, PERRL Pupil Exam: NORMAL ACCOMODATION, PERRL - ENT Exam ENT Exam: Mucous Membranes Moist, Normal External Ear Exam, TM's Normal Bilaterally - Neck Exam Neck exam: Positive for: Full Rom, Normal Inspection - Respiratory Exam Respiratory Exam: Clear to Auscultation Bilateral, NORMAL BREATHING PATTERN. absent: Rales, Rhonchi, Wheezes - Cardiovascular Exam Cardiovascular Exam: REGULAR RHYTHM, RRR, +S1, +S2 - GI/Abdominal Exam GI & Abdominal Exam: Normal Bowel Sounds, Soft. absent: Distended, Tenderness - Extremities Exam Extremities exam: Positive for: full ROM, joint swelling, pedal edema Additional comments: Bilateral extremities have hyperpigmentation on bilateral extremities below the knees. Signs of chronic venous stasis. Right pedal edema, amputation of 4th and 5th digits on right foot. Wound on right 1st toe. Erythema, discharge, malodor present. - Neurological Exam Neurological exam: Alert, CN II-XII Intact, Oriented x3 - Psychiatric Exam Psychiatric exam: Normal Affect, Normal Mood - Skin Additional comments: As above. Results - Vital Signs Recent Vital Signs: Last Vital Signs Temp 97.6 F 02/12/18 08:01 Pulse 43 L 02/12/18 09:37 Resp 20 02/12/18 08:01 BP 126/62 02/12/18 09:34 Pulse Ox 96 02/12/18 08:01 - Labs Result Diagrams: 02/12/18 07:30 02/12/18 07:30 Labs: Laboratory Results - last 24 hr 02/12/18 02/12/18 02/12/18 06:30 07:30 07:30 WBC 6.4 D RBC 3.94 Hgb 10.1 L D Hct 31.6 L MCV 80.2 MCH 25.6 MCHC 32.0 RDW 16.8 H Plt Count 169 MPV 9.4 Gran % 70.6 H Lymph % (Auto) 17.6 L [place] % (Auto) 9.6 H Eos % (Auto) 1.9 Baso % (Auto) 0.3 Gran # 4.49 Lymph # (Auto) 1.1 L [place] # (Auto) 0.6 Eos # (Auto) 0.1 Baso # (Auto) 0.02 Sodium 138 Potassium 3.5 L Chloride 102 Carbon Dioxide 29 Anion Gap 11 BUN 18 Creatinine 0.8 Est GFR ( Amer) > 60 Est GFR (Non-Af Amer) > 60 Random Glucose 87 Calcium 8.7 Total Bilirubin 0.8 AST 27 ALT 23 Alkaline Phosphatase 77 C-React Prot High Sens > 15.00 H Total Protein 6.6 Albumin 2.9 L Globulin 3.6 Albumin/Globulin Ratio 0.8 L Assessment & Plan - Assessment and Plan (Free Text) Assessment: 68 yo male well known to me with extensive medical history of diabetes mellitus type 2, hypertension, hyperlipidemia, osteomyelitis s/p 4th and 5th right toe amputation, coronary artery disease s/p CABGx3 in 2006 with worsening of the right foot 1st toe with malodor. Awaiting MRI to be done. Obtain ESR and C- Reactive Protein values. Start on Zosyn and Vancomycin while monitoring renal function. Supportive care. Awaiting cultures. Thank you for allowing me to participate in the care of the patient, we will follow with you.
[2018-02-12] MEDS ORDERED: DiphenhydrAMINE 50 mg/ml Inj IVP ONE (16:11)
[2018-02-13] MEDS: Pantoprazole 40 mg EC Tab PO SCH (05:42)
[2018-02-13] MEDS: Piperacillin/Tazobact 3.375 gm 100 ML IVPB SCH ×4 (05:42→23:49)
[2018-02-13 07:12] LABS: BASO # 0.02 K/mm3 (0.0-2.0); BASO % 0.3 % (0.0-3.0); EOS # 0.2 (0.0-0.7); GRAN # 4.14 (1.4-6.5); GRAN % 66.4 % (50.0-68.0); HEMOGLOBIN 9.8 g/dL (14.0-18.0); LYMPH # 1.3 (1.2-3.4); MEAN CELL VOLUME 80.5 fl (80.0-105.0); MEAN CORPUSCULAR HEMOGLOBIN 25.5 pg (25.0-35.0); MEAN CORPUSCULAR HGB CONC 31.7 g/dl (31.0-37.0); MEAN PLATELET VOLUME 9.6 fl (7.0-11.0); MONO # 0.6 (0.1-0.6); MONO % 9.3 % (1.0-6.0); RBC 3.84 10^6/uL (3.5-6.1); RED CELL DISTRIBUTION WIDTH 16.9 % (11.5-14.5); WHITE BLOOD COUNT 6.2 10^3/ul (4.5-11.0)
[2018-02-13 07:20] LABS: ALB/GLOB RATIO 0.8 (1.1-1.8); ALBUMIN 2.8 g/dL (3.0-4.8); ALT/SGPT 24 U/L (7-56); AST/SGOT 29 U/L (17-59); BLOOD UREA NITROGEN 15 mg/dL (7-21); CALCIUM 8.5 mg/dL (8.4-10.5); GFR AFRICAN-AMERICAN > 60; GFR NON-AFRICAN AMERICAN > 60
[2018-02-13] MEDS: Insulin Reg-LOW-Coverage SC SCH ×4 (07:51→21:26)
[2018-02-13] MEDS: Vancomycin 1gm in NS 250ml 1 GM/250 ML BAG IVPB SCH ×2 (09:07→21:13)
--- NOTE | 2018-02-13 09:09 | CP.PCM.PN ---
Subjective - Date & Time of Evaluation Date of Evaluation: 02/13/18 Time of Evaluation: 09:07 - Subjective Subjective: Gary Meade DO PGY1 Internal Medicine Maintenance Person - Hospital Progress Note Pt. seen and examined at bedside this AM pt notified of ct results from day prior Yesterday patient had some hesitancy in regards to MRI of foot. Patient was redirected and agreed to MRI. Objective - Vital Signs/Intake and Output Vital Signs (last 24 hours): Temp Pulse Resp BP Pulse Ox 97.9 F 48 L 18 130/67 96 02/13/18 07:56 02/13/18 07:56 02/13/18 07:56 02/13/18 07:56 02/13/18 07:56 Intake and Output: 02/13/18 02/13/18 06:59 18:59 Intake Total 2670 Output Total 675 Balance 1994 - Medications Medications: Current Medications Aspirin (Aspirin Chewable) 81 mg PO DAILY [facility] Last Admin: 02/12/18 09:35 Dose: 81 mg Atorvastatin Calcium (Lipitor) 40 mg PO HS [facility] Last Admin: 02/12/18 21:47 Dose: 40 mg Clonazepam (Klonopin) 1 mg PO BID [facility] PRN Reason: Protocol Last Admin: 02/12/18 18:13 Dose: 1 mg Clopidogrel Bisulfate (Plavix) 75 mg PO DAILY [facility] Last Admin: 02/12/18 09:38 Dose: 75 mg Docusate Sodium (Colace) 100 mg PO BID [facility] Last Admin: 02/12/18 18:12 Dose: 100 mg Enoxaparin Sodium (Lovenox) 40 mg SC DAILY [facility] PRN Reason: Protocol Last Admin: 02/12/18 09:36 Dose: 40 mg Vancomycin HCl (Vancomycin 1gm) 1 gm in 250 mls @ 167 mls/hr IVPB Q12 [facility] PRN Reason: Protocol Last Admin: 02/12/18 21:47 Dose: 167 mls/hr Piperacillin Sod/Tazobactam Sod (Zosyn 3.375 In Ns 100ml) 100 mls @ 200 mls/hr IVPB Q6 [facility] PRN Reason: Protocol Last Admin: 02/13/18 05:42 Dose: 200 mls/hr Insulin Human Regular (Humulin R Low) 0 units SC ACHS [facility] PRN Reason: Protocol Last Admin: 02/13/18 07:51 Dose: Not Given Methadone HCl (Methadone) 30 mg PO Q12 [facility] Last Admin: 02/12/18 21:47 Dose: 30 mg Metoprolol Succinate (Toprol Xl) 50 mg PO DAILY [facility] Last Admin: 02/12/18 09:37 Dose: Not Given Pantoprazole Sodium (Protonix Ec Tab) 40 mg PO 0600 [facility] Last Admin: 02/13/18 05:42 Dose: 40 mg Ramipril (Altace) 1.25 mg PO DAILY [facility] Last Admin: 02/12/18 09:34 Dose: 1.25 mg - Labs Labs: 02/13/18 06:30 02/13/18 06:30 PT 13.7 SECONDS (9.4-12.5) H 02/11/18 16:30 INR 1.20 02/11/18 16:30 APTT 33.5 Seconds (25.1-36.5) 02/11/18 16:30 Physical Exam - Constitutional Appears: Well, Non-toxic, No Acute Distress - Head Exam Head Exam: ATRAUMATIC, NORMOCEPHALIC - Eye Exam Eye Exam: EOMI, PERRL. absent: Scleral icterus - ENT Exam ENT Exam: Mucous Membranes Moist - Respiratory Exam Respiratory Exam: Clear to Ausculation Bilateral, NORMAL BREATHING PATTERN. absent: Rales, Rhonchi, Wheezes, Respiratory Distress - Cardiovascular Exam Cardiovascular Exam: RRR, +S1, +S2. absent: Murmur - GI/Abdominal Exam GI & Abdominal Exam: Soft, Normal Bowel Sounds. absent: Tenderness, Mass - Extremities Exam Additional comments: RLE Pedal edema 1+ non pitting; chronic venostatic dermatitis present on BL LE 4th + 5th digits of R foot amputed. 1st toe with wound/ulceration; erythematous with discharge; currently dressed; dressing is CDI - Back Exam Back Exam: Patient has a 1x3cm erythematous minimally tender draining wound; pus like drainage present. absent: CVA tenderness (L), CVA tenderness (R) - Neurological Exam Neurological Exam: Alert, Awake, CN II-XII Intact, Oriented x3 - Psychiatric Exam Psychiatric exam: Normal Affect, Normal Mood - Skin Skin Exam: Dry, Intact, Normal Color, Warm Assessment and Plan - Assessment and Plan (Free Text) Assessment: 68 year old male with past medical history of diabetes mellitus type 2, hypertension, hyperlipidemia, osteomyelitis s/p 4th and 5th right toe amputation , coronary artery disease s/p CABGx3 in 2006 presents with right 1st toe wound that has been present for "a few years". Patient has also had a T6/7 laminectomy done in 2016 2/2 osteomyelitis of spine; he reports a draining abcess in his back over the past 6wks near the surgical site. Plan: R first toe ulceration; r/o osteo R foot X-Ray - no bony involvment of the Right first toe - Offiical read pending Lower extremity arterial ultra sound to assess vascularization- official read pending -Afebrile; WBC wnl -c/w Zosyn -C/w Vancomycin Podiatry following, appreciate reccs: Pt to be WBAT in forefoot off-loading shoe ; vascular evaluation as above ID following, appreciate reccs Draining Back Abcess 1cm x 0.5 cm abscess mid paraspinal back at T5/6 CT Thoracic Spine - There is a small elliptical shaped fluid collection within the mid posterior paraspinal soft tissues associate with a bubble of air consistent with abscess collection which extends from approximately T4-T5 disc space level inferiorly to at least the lower T5 level. MRI Thoracic Spine - official read pending Consulted NeuroSurgery Dr. Bloom - Will I+D abscess at bedside tomorrow Sinus Bradycardia EKG 02/13 Read as - Marked sinus bradycardia; RBBB This reading is consistent w/ prior EKG's performed Will monitor on tele Microcytic anemia -Hgb: 12.1. Baseline ranges from 9.2-11.5 -Continue to monitor; HD stable at this time History of diabetes mellitus type 2 -ISS low -Accuchecks ACHS History of Coronary Artery Disease -Status post CABGx3 -aspirin 81 mg daily -lipitor 40 mg daily -plavix 75 mg daily -ramipril 1.25 mg daily -metoprolol succinate 50 mg daily History of Hyperlipidemia -lipitor 40 mg daily History of Hypertension -ramipril 1.25 mg daily -metoprolol succinate 50 mg daily History of anxiety -clonazepam 1 mg BID History of Hyperlipidemia -lipitor 40 mg daily History of chronic pain on methadone -Patient takes methadone 30mg BID. Prescribed by Dr. Villa; [facility] pharmacy confirmed methadone dosage as of 02/02 - 30mg BID -C/w home methadone 30mg BID -C/w colace 100mg BID GI prophylaxis: protonix 40 mg daily DVT prophylaxis: lovenox 40 mg daily Patient seen and examined, case discussed with attending physician Kuldip Garcia DO PGY1 Internal Medicine Maintenance Person - Pager [phone]
[2018-02-13] MEDS: Enoxaparin 40 mg Syringe SC SCH (09:14)
[2018-02-13] MEDS ORDERED: Gadodiamide 287 MG/ML VIAL (15ML) IV ONE (09:40)
[2018-02-13] MEDS ORDERED: Metoprolol Succinate 50 mg XL Tab PO SCH (11:10)
--- NOTE | 2018-02-13 13:29 | CP.PCM.PN ---
<Cassi Portillo - Last Filed: 02/13/18 13:22> Subjective - Date & Time of Evaluation Date of Evaluation: 02/13/18 Time of Evaluation: 13:22 - Subjective Subjective: Podiatry progress note for attending Dr. Fry 68 y/o diabetic male seen and evaluated at bedside for right plantar hallux ulceration with pain. Patient was resting comfortably and in no acute distress. Patient denies any further pedal complaints or acute overnight events. Patient states he has not yet received his Forefoot Wedge shoe. Patient denies F/N/V/SOB /chills/posterior calf pain Objective - Vital Signs/Intake and Output Vital Signs (last 24 hours): Temp Pulse Resp BP Pulse Ox 97.9 F 48 L 18 130/67 96 02/13/18 07:56 02/13/18 07:56 02/13/18 07:56 02/13/18 09:05 02/13/18 07:56 Intake and Output: 02/13/18 02/13/18 06:59 18:59 Intake Total 2670 Output Total 675 Balance 1995 - Medications Medications: Current Medications Aspirin (Aspirin Chewable) 81 mg PO DAILY [facility] Last Admin: 02/13/18 09:06 Dose: 81 mg Atorvastatin Calcium (Lipitor) 40 mg PO HS [facility] Last Admin: 02/12/18 21:47 Dose: 40 mg Clonazepam (Klonopin) 1 mg PO BID [facility] PRN Reason: Protocol Last Admin: 02/13/18 09:06 Dose: 1 mg Clopidogrel Bisulfate (Plavix) 75 mg PO DAILY [facility] Last Admin: 02/13/18 09:07 Dose: 75 mg Docusate Sodium (Colace) 100 mg PO BID [facility] Last Admin: 02/13/18 09:06 Dose: 100 mg Enoxaparin Sodium (Lovenox) 40 mg SC DAILY [facility] PRN Reason: Protocol Last Admin: 02/13/18 09:14 Dose: 40 mg Vancomycin HCl (Vancomycin 1gm) 1 gm in 250 mls @ 167 mls/hr IVPB Q12 [facility] PRN Reason: Protocol Last Admin: 02/13/18 09:07 Dose: 167 mls/hr Piperacillin Sod/Tazobactam Sod (Zosyn 3.375 In Ns 100ml) 100 mls @ 200 mls/hr IVPB Q6 [facility] PRN Reason: Protocol Last Admin: 02/13/18 05:42 Dose: 200 mls/hr Insulin Human Regular (Humulin R Low) 0 units SC ACHS [facility] PRN Reason: Protocol Last Admin: 02/13/18 11:52 Dose: Not Given Methadone HCl (Methadone) 30 mg PO Q12 [facility] Last Admin: 02/13/18 09:06 Dose: 30 mg Metoprolol Succinate (Toprol Xl) 25 mg PO DAILY [facility] Pantoprazole Sodium (Protonix Ec Tab) 40 mg PO 0600 [facility] Last Admin: 02/13/18 05:42 Dose: 40 mg Ramipril (Altace) 1.25 mg PO DAILY [facility] Last Admin: 02/13/18 09:05 Dose: 1.25 mg - Labs Labs: 02/13/18 06:30 02/13/18 06:30 PT 13.7 SECONDS (9.4-12.5) H 02/11/18 16:30 INR 1.20 02/11/18 16:30 APTT 33.5 Seconds (25.1-36.5) 02/11/18 16:30 - Constitutional Appears: Well, Non-toxic, No Acute Distress - Head Exam Head Exam: ATRAUMATIC, NORMOCEPHALIC - Extremities Exam Additional comments: Lower Extremity Focused Exam VASC: DP pulses non-palpable, PT pulse weakly palpable, TG warm to cool, CFT delayed to all digits, NEURO: Unable to detect protective sensation bilaterally DERM: full thickness ulceration noted to the plantar aspect of the right hallux , positive probes to bone, no malodor, no purulence, primarily granular base, edema and erythema noted to the hallux, positive fluctuance noted MSK: previous amputations of the right 4th and 5th digits, severe contracture and dislocation noted of the right hallux - Neurological Exam Neurological Exam: Alert, Awake, Oriented x3 - Psychiatric Exam Psychiatric exam: Normal Affect, Normal Mood Assessment and Plan - Assessment and Plan (Free Text) Assessment: 68 y/o diabetic male seen and evaluated at bedside for right plantar hallux ulceration with pain Plan: Patient was seen and evaluated Chart, labs and vitals were reviewed Afebrile, absent leukocyotosis Wound Culture- Pending Foot MRI- Pending Final Read Arterial-Venous Dopplers- Pending Patient wound cleased with saline and dressed with betadine, DSD Continue IV Abx as per Infectious Disease Pending Vascular Consult- recommendations will be appreciated Prior to any surgical intervention, patient will be evaluated to proper perfusion to the right hallux to allow healing Patient to WBAT in forefoot off-loading shoe Podiatry will continue to follow patient while in house <Albin Fryfederico - Last Filed: 02/14/18 08:05> Objective - Vital Signs/Intake and Output Vital Signs (last 24 hours): Temp Pulse Resp BP Pulse Ox 97.9 F 45 L 20 151/69 H 94 L 02/14/18 07:56 02/14/18 07:56 02/14/18 07:56 02/14/18 07:56 02/14/18 07:56 Intake and Output: 02/14/18 02/14/18 06:59 18:59 Intake Total 2160 Output Total 1150 Balance 1010 - Medications Medications: Current Medications Aspirin (Aspirin Chewable) 81 mg PO DAILY [facility] Last Admin: 02/13/18 09:06 Dose: 81 mg Atorvastatin Calcium (Lipitor) 40 mg PO HS [facility] Last Admin: 02/13/18 21:13 Dose: 40 mg Clonazepam (Klonopin) 1 mg PO BID [facility] PRN Reason: Protocol Last Admin: 02/13/18 17:21 Dose: 1 mg Clopidogrel Bisulfate (Plavix) 75 mg PO DAILY [facility] Last Admin: 02/13/18 09:07 Dose: 75 mg Docusate Sodium (Colace) 100 mg PO BID [facility] Last Admin: 02/13/18 17:20 Dose: 100 mg Enoxaparin Sodium (Lovenox) 40 mg SC DAILY [facility] PRN Reason: Protocol Last Admin: 02/13/18 09:14 Dose: 40 mg Vancomycin HCl (Vancomycin 1gm) 1 gm in 250 mls @ 167 mls/hr IVPB Q12 [facility] PRN Reason: Protocol Last Admin: 02/13/18 21:13 Dose: 167 mls/hr Piperacillin Sod/Tazobactam Sod (Zosyn 3.375 In Ns 100ml) 100 mls @ 200 mls/hr IVPB Q6 [facility] PRN Reason: Protocol Last Admin: 02/14/18 05:26 Dose: 200 mls/hr Insulin Human Regular (Humulin R Low) 0 units SC ACHS [facility] PRN Reason: Protocol Last Admin: 02/13/18 21:26 Dose: Not Given Methadone HCl (Methadone) 30 mg PO Q12 [facility] Last Admin: 02/13/18 21:12 Dose: 30 mg Metoprolol Succinate (Toprol Xl) 25 mg PO DAILY [facility] Pantoprazole Sodium (Protonix Ec Tab) 40 mg PO 0600 [facility] Last Admin: 02/14/18 05:26 Dose: 40 mg Ramipril (Altace) 1.25 mg PO DAILY [facility] Last Admin: 02/13/18 09:05 Dose: 1.25 mg - Labs Labs: 02/14/18 06:30 02/14/18 06:30 PT 13.7 SECONDS (9.4-12.5) H 02/11/18 16:30 INR 1.20 02/11/18 16:30 APTT 33.5 Seconds (25.1-36.5) 02/11/18 16:30 Attending/Attestation - Attestation I have personally seen and examined this patient.: Yes I have fully participated in the care of the patient.: Yes I have reviewed all pertinent clinical information, including history, physical exam and plan: Yes
--- NOTE | 2018-02-13 15:26 | CARD ---
APPROVED REPORT Date of service: 02/13/2018 EKG Measurement Heart [id number] <Conclusion> Marked sinus bradycardia Right bundle branch block Abnormal ECG
--- NOTE | 2018-02-13 17:41 | MRI ---
Date of service: 02/13/2018 PROCEDURE: MR THORACIC SPINE WITH AND WITHOUT CONTRAST HISTORY: Thoracic abscess COMPARISON: Comparison made with prior CT scan of the thoracic spine dated 02/12/2018. TECHNIQUE: Multiecho multiplanar sequences were performed through the thoracic spine with and without the use of intravenous contrast. . Approximately 15 cc of Omniscan contrast material injected for this examination. FINDINGS: ALIGNMENT: Significant susceptibility artifact changes related to posterior fixation hardware in the over the mid thoracic spine partially obscures fine soft tissue and bone detail. The spinal canal over these levels also a nearly completely obscured. Briefly, the changes mentioned below are seen to much better advantage on prior CT scan though will be mentioned for clarification on this study. Additionally, chronic anterior wedge deformity of the T6 and T7 segments with apparent fusion change also seen to better advantage. There are of bilateral laminectomy changes seen at the T5, T6, T7 upper T8 segment levels. Posterior fixation accomplished by bilateral long segment Dhaliwal rods are attached to the right and left pedicles of the T4, T5, T8 and T9 segments. Stabilizing crossbars at the T5-T6 and T8-T9 levels are present. Note that all of this hardware seen to much better advantage on prior CT scan. Similarly, previously noted suspected small fluid collection associated with a bubble or 2 of air within the mid paraspinal soft tissues located at approximately the T4-T5 disc space level and inferiorly to approximately T5 level is not appreciated on this exam however this is suspected small abscess may have been drained. . The remaining vertebral bodies exhibit normal stature. Minor multilevel degenerative spondylosis seen at the remaining levels. Overall central bony canal and exit foramina appear adequate at the visualized remaining levels as well. VERTEBRA: Remaining vertebral bodies intact without evidence of acute nor chronic compression fractures not withstanding the aforementioned chronic anterior wedge compression fractures and apparent fusion of the aforementioned T6 and T7 segment. MARROW: Marrow signal unremarkable. PARASPINAL SOFT TISSUES: As above CORD: Visualized portions of the spinal cord unremarkable DISCS: disc herniation, spinal canal stenosis, or neuroforaminal narrowing. ENHANCEMENT: No obvious abnormal contrast enhancement OTHER FINDINGS: None. IMPRESSION: Multilevel bilateral laminectomy and posterior fixation. Previously seen and described suspected small abscess within the mid posterior paraspinal subcutaneous tissues at approximately the T4 and T5 levels not appreciated on this exam ; this is largely in part due to significant susceptibility artifact with partial obscuration of the canal and surrounding structures over the fused segments . Additionally however there may have been interval drainage procedure prior to this exam. Clinical correlation recommended. Chronic anterior wedge compression fractures of the T6 and T7 segments with apparent fusion of these 2 segments. Mild multilevel degenerative spondylosis These findings were discussed with Dr. Gomez at approximately 10:30 a.m. with written down and read back verification.
--- NOTE | 2018-02-13 18:17 | CP.PCM.PN ---
Subjective - Date & Time of Evaluation Date of Evaluation: 02/13/18 Time of Evaluation: 16:20 - Subjective Subjective: Infectious Disease Follow Up: February 13, 2018 68 [place] [facility] [place] right foot pain and bleeding of the right foot first toe. The patient has an extensive medical history that includes AD s /p stents and CABG, DM, HTN, and HLD. The patient has had several [place] [facility] [place] He was having persistent seepage and drainage from the right great toe back in October 2017 when I treated the patient for osteomyelitis. Started on Zosyn and IV Vancomycin for care at that time. The patient is awaiting vascular evaluation with Dr. Leif Lyons. The patient likely needs at least right 1st toes amputation if not a TMA. Objective - Vital Signs/Intake and Output Vital Signs (last 24 hours): Temp Pulse Resp BP Pulse Ox 98.1 F 41 L 19 144/75 96 02/13/18 17:10 02/13/18 17:10 02/13/18 17:10 02/13/18 17:10 02/13/18 17:10 Intake and Output: 02/13/18 02/13/18 06:59 18:59 Intake Total 2670 Output Total 675 Balance 1995 - Medications Medications: Current Medications Aspirin (Aspirin Chewable) 81 mg PO DAILY [facility] Last Admin: 02/13/18 09:06 Dose: 81 mg Atorvastatin Calcium (Lipitor) 40 mg PO HS [facility] Last Admin: 02/12/18 21:47 Dose: 40 mg Clonazepam (Klonopin) 1 mg PO BID [facility] PRN Reason: Protocol Last Admin: 02/13/18 17:21 Dose: 1 mg Clopidogrel Bisulfate (Plavix) 75 mg PO DAILY [facility] Last Admin: 02/13/18 09:07 Dose: 75 mg Docusate Sodium (Colace) 100 mg PO BID [facility] Last Admin: 02/13/18 17:20 Dose: 100 mg Enoxaparin Sodium (Lovenox) 40 mg SC DAILY [facility] PRN Reason: Protocol Last Admin: 02/13/18 09:14 Dose: 40 mg Vancomycin HCl (Vancomycin 1gm) 1 gm in 250 mls @ 167 mls/hr IVPB Q12 [facility] PRN Reason: Protocol Last Admin: 02/13/18 09:07 Dose: 167 mls/hr Piperacillin Sod/Tazobactam Sod (Zosyn 3.375 In Ns 100ml) 100 mls @ 200 mls/hr IVPB Q6 [facility] PRN Reason: Protocol Last Admin: 02/13/18 17:22 Dose: 200 mls/hr Insulin Human Regular (Humulin R Low) 0 units SC ACHS [facility] PRN Reason: Protocol Last Admin: 02/13/18 17:21 Dose: Not Given Methadone HCl (Methadone) 30 mg PO Q12 [facility] Last Admin: 02/13/18 09:06 Dose: 30 mg Metoprolol Succinate (Toprol Xl) 25 mg PO DAILY [facility] Pantoprazole Sodium (Protonix Ec Tab) 40 mg PO 0600 [facility] Last Admin: 02/13/18 05:42 Dose: 40 mg Ramipril (Altace) 1.25 mg PO DAILY [facility] Last Admin: 02/13/18 09:05 Dose: 1.25 mg - Labs Labs: 02/13/18 06:30 02/13/18 06:30 PT 13.7 SECONDS (9.4-12.5) H 02/11/18 16:30 INR 1.20 02/11/18 16:30 APTT 33.5 Seconds (25.1-36.5) 02/11/18 16:30 - Constitutional Appears: Non-toxic, No Acute Distress, Chronically Ill - Head Exam Head Exam: ATRAUMATIC, NORMOCEPHALIC - Eye Exam Eye Exam: EOMI, PERRL Pupil Exam: NORMAL ACCOMODATION, PERRL - ENT Exam ENT Exam: Mucous Membranes Moist, Normal External Ear Exam, TM's Normal Bilaterally - Neck Exam Neck Exam: Full ROM, Normal Inspection - Respiratory Exam Respiratory Exam: Clear to Ausculation Bilateral, NORMAL BREATHING PATTERN. absent: Rales, Rhonchi, Wheezes - Cardiovascular Exam Cardiovascular Exam: REGULAR RHYTHM, RRR, +S1, +S2 - GI/Abdominal Exam GI & Abdominal Exam: Soft, Normal Bowel Sounds. absent: Distended, Tenderness - Extremities Exam Extremities Exam: Full ROM, Joint Swelling, Pedal Edema Additional comments: Bilateral extremities have hyperpigmentation on bilateral extremities below the knees. Signs of chronic venous stasis. Right pedal edema, amputation of 4th and 5th digits on right foot. Wound on right 1st toe. Erythema, discharge, malodor present. Dressings are saturated from the drainage of the right foot 1st toe. - Neurological Exam Neurological Exam: Alert, Awake, CN II-XII Intact, Oriented x3 - Psychiatric Exam Psychiatric exam: Normal Affect, Normal Mood - Skin Additional comments: As above plus the patient has on the back a 1x3 cm erythematous area on the mid- back area with milky drainage and mild tenderness. Assessment and Plan - Assessment and Plan (Free Text) Assessment: 68 yo male well known to me with extensive medical history of diabetes mellitus type 2, hypertension, hyperlipidemia, osteomyelitis s/p 4th and 5th right toe amputation, coronary artery disease s/p CABGx3 in 2006 with worsening of the right foot 1st toe with malodor. Awaiting MRI to be done. Obtain ESR and C- Reactive Protein values... the ESR was moderately high. Evaluation with Dr. Leif Lyons regarding current circulation in the right leg. This will determine level of amputation needed. Blood cultures is showing Staph Aureus in one blood culture. Sensitivities pending. Of concern is the drainage from the back. The patient has a positive blood culture for Staph Aureus and a history of osteomyelitis. Regardless of the outcome for the right foot 1st toe, the patient will likely need 6 weeks of antibiotics given the positive blood culture, the drainage from the back with hardware present from a 2016 laminectomy, and the issues with the right foot. Start on Zosyn and Vancomycin while monitoring renal function. Supportive care. Check Vancomycin levels. Awaiting cultures. Thank you for allowing me to participate in the care of the patient, we will follow with you. I will be away from 02/14/2018 to 02/27/2018, Dr. English will be covering for me during this time.
--- NOTE | 2018-02-13 18:51 | US ---
PROCEDURE: Lower extremity IVELISSE exam HISTORY: Peripheral vascular disease with pain and ulceration. Smoker. Diabetes. PHYSICIAN(S): Leif Lyons MD. FINDINGS: The exam is limited by calcified noncompressible vessels at multiple levels. The resting ABIs are not obtainable. The brachial systolic pressures are symmetric. The PVR waveforms are normal at all levels on the left. The right calf PVR waveform is decreased in amplitude compared to the left. This could represent subtle right SFA occlusive disease. The right ankle and metatarsal waveforms are moderately to severely blunted. This is consistent with right tibial occlusive disease. IMPRESSION: 1. Limited study due to calcified vessels. 2. Right SFA occlusive disease. 3. Right tibial occlusive disease.
[2018-02-14] MEDS: Piperacillin/Tazobact 3.375 gm 100 ML IVPB SCH ×3 (05:26→17:29)
[2018-02-14] MEDS: Pantoprazole 40 mg EC Tab PO SCH (05:26)
[2018-02-14 07:21] LABS: BASO # 0.03 K/mm3 (0.0-2.0); BASO % 0.4 % (0.0-3.0); EOS # 0.3 (0.0-0.7); EOS % 4.5 % (1.5-5.0); GRAN # 3.95 (1.4-6.5); GRAN % 59.3 % (50.0-68.0); HEMOGLOBIN 10.6 g/dL (14.0-18.0); LYMPH # 1.9 (1.2-3.4); LYMPH % 27.7 % (22.0-35.0); MEAN CELL VOLUME 80.7 fl (80.0-105.0); MEAN CORPUSCULAR HEMOGLOBIN 25.5 pg (25.0-35.0); MEAN CORPUSCULAR HGB CONC 31.6 g/dl (31.0-37.0); MEAN PLATELET VOLUME 9.8 fl (7.0-11.0); MONO # 0.5 (0.1-0.6); MONO % 8.1 % (1.0-6.0); RBC 4.15 10^6/uL (3.5-6.1); RED CELL DISTRIBUTION WIDTH 16.7 % (11.5-14.5); WHITE BLOOD COUNT 6.7 10^3/ul (4.5-11.0)
[2018-02-14 07:36] LABS: ALB/GLOB RATIO 0.8 (1.1-1.8); ALBUMIN 3.1 g/dL (3.0-4.8); ALT/SGPT 28 U/L (7-56); AST/SGOT 37 U/L (17-59); BLOOD UREA NITROGEN 12 mg/dL (7-21); GFR AFRICAN-AMERICAN > 60; GFR NON-AFRICAN AMERICAN > 60
--- NOTE | 2018-02-14 07:56 | CP.PCM.PN ---
<Gary Meade - Last Filed: 02/14/18 15:19> Subjective - Date & Time of Evaluation Date of Evaluation: 02/14/18 Time of Evaluation: 07:40 - Subjective Subjective: Gary Meade DO PGY1 Internal Medicine Program Clinician - Hospital Progress NOte Patient seen and examined this AM at bedside Bedside evaluation by neurosurgery Dr. Bloom for back abscess. Podiatry reccs pending for R foot; MRI resulting as Osteo Patient complaining of Nausea and Constipation this morning. States he has chronic constipation; we have already placed patient on Colace 100BID. Anti-Nausea Rx offered 1to patient; he does not request any at this time. 12 system ROS otherwise negative. RLE dressing falling off; stained on exam. Remainder PE WNL. Objective - Vital Signs/Intake and Output Vital Signs (last 24 hours): Temp Pulse Resp BP Pulse Ox 98.1 F 41 L 19 144/75 96 02/13/18 17:10 02/13/18 17:10 02/13/18 17:10 02/13/18 17:10 02/13/18 17:10 Intake and Output: 02/14/18 02/14/18 06:59 18:59 Intake Total 2160 Output Total 1150 Balance 1010 - Medications Medications: Current Medications Aspirin (Aspirin Chewable) 81 mg PO DAILY [facility] Last Admin: 02/13/18 09:06 Dose: 81 mg Atorvastatin Calcium (Lipitor) 40 mg PO HS [facility] Last Admin: 02/13/18 21:13 Dose: 40 mg Clonazepam (Klonopin) 1 mg PO BID [facility] PRN Reason: Protocol Last Admin: 02/13/18 17:21 Dose: 1 mg Clopidogrel Bisulfate (Plavix) 75 mg PO DAILY [facility] Last Admin: 02/13/18 09:07 Dose: 75 mg Docusate Sodium (Colace) 100 mg PO BID [facility] Last Admin: 02/13/18 17:20 Dose: 100 mg Enoxaparin Sodium (Lovenox) 40 mg SC DAILY [facility] PRN Reason: Protocol Last Admin: 02/13/18 09:14 Dose: 40 mg Vancomycin HCl (Vancomycin 1gm) 1 gm in 250 mls @ 167 mls/hr IVPB Q12 [facility] PRN Reason: Protocol Last Admin: 02/13/18 21:13 Dose: 167 mls/hr Piperacillin Sod/Tazobactam Sod (Zosyn 3.375 In Ns 100ml) 100 mls @ 200 mls/hr IVPB Q6 [facility] PRN Reason: Protocol Last Admin: 02/14/18 05:26 Dose: 200 mls/hr Insulin Human Regular (Humulin R Low) 0 units SC ACHS [facility] PRN Reason: Protocol Last Admin: 02/13/18 21:26 Dose: Not Given Methadone HCl (Methadone) 30 mg PO Q12 [facility] Last Admin: 02/13/18 21:12 Dose: 30 mg Metoprolol Succinate (Toprol Xl) 25 mg PO DAILY [facility] Pantoprazole Sodium (Protonix Ec Tab) 40 mg PO 0600 [facility] Last Admin: 02/14/18 05:26 Dose: 40 mg Ramipril (Altace) 1.25 mg PO DAILY [facility] Last Admin: 02/13/18 09:05 Dose: 1.25 mg - Labs Labs: 02/14/18 06:30 02/14/18 06:30 PT 13.7 SECONDS (9.4-12.5) H 02/11/18 16:30 INR 1.20 02/11/18 16:30 APTT 33.5 Seconds (25.1-36.5) 02/11/18 16:30 - Constitutional Appears: Well, Non-toxic - Head Exam Head Exam: ATRAUMATIC, NORMOCEPHALIC - Eye Exam Eye Exam: EOMI, PERRL. absent: Scleral icterus - ENT Exam ENT Exam: Mucous Membranes Moist, Normal Exam - Respiratory Exam Respiratory Exam: Clear to Ausculation Bilateral, NORMAL BREATHING PATTERN. absent: Rales, Rhonchi, Wheezes, Respiratory Distress - Cardiovascular Exam Cardiovascular Exam: REGULAR RHYTHM, +S1, +S2. absent: Murmur Additional comments: Felix overnight on tele - GI/Abdominal Exam GI & Abdominal Exam: Soft. absent: Tenderness - Extremities Exam Additional comments: DP and PT pulses not palpable on the R. 1+ DP pulses palpated on the L foot, L PT pulse not palpable. Extremities: R leg: venous stasis dermatitis present to the level of the tibial tuberosity. R Charcot foot deformity. Non-pitting edema present over dorsum of R foot. s/p 3rd and 5th tarsal amputation at level of MTP. Significant bony deformity and contracture of the distal R great toe at the DIP. Ulcer of the plantar aspect of R toe, 2.3 cm in longest dimension, base composed of 20% sluff material. Wound not probed on exam. - Back Exam Back Exam: absent: CVA tenderness (L), CVA tenderness (R) Additional comments: Upper back examined. Midline scar present T3 through T7. Bandage in place over T6 midline. Some purulent drainage seen through bandage. No signs of lymphangitis or cellulitis. - Neurological Exam Neurological Exam: Alert, CN II-XII Intact, Oriented x3 - Psychiatric Exam Psychiatric exam: Normal Affect, Normal Mood Additional comments: Upper back examined. Midline scar present T3 through T7. Bandage in place over T6 midline. Some purulent drainage seen through bandage. No signs of lymphangitis or cellulitis. - Skin Skin Exam: Dry, Intact, Normal Color, Warm Assessment and Plan - Assessment and Plan (Free Text) Assessment: Assessment: 68M w PMH DMT2, HLD, PAD, COPD, CAD w CABG for triple vessel disease in 2006, cholecystectomy, and thoracic kyphoplasty w internal fixation, presented with worsening drainage from chronic neuropathic ulcer of the R 1st toe. Chronic neuropathic wound of R 1st toe / Osteomyelitis of the R 1st Toe - XR was significant for findings suggesting osteomyelitis of the R great toe. MRI R foot demonstrated marrow edema of R great toe, consisted with osteomyelitis. ESR elevated. - Doppler US demonstrated limited exam 2/2 to heavy calcification and stenosis, demonstrated occlusive disease of R tibial artery and R superficial femoral artery. - Continue Zosyn and Vancomycin per ID recommendations - Wound culture - MRSA+ ; Susceptible to Clindamycin, Gentamicin, Linezolid, Tetracycline, Bactrim, Vancomycin - Vascular consult (Dr. Lyons), recommendations appreciated. - Podiatry consult: Dr. Fry, recommendations appreciated. Plan for pt in WBAT forefoot off-loading show. - Follow-up PT recommendations Positive blood culture 1/2 @ 24 Hours - Blood cultures obtained, return significant for MRSA on first day, return negative on second day. Most likely positive culture was contaminant. ESR elevated in setting of osteomyelitis; however, no fever or leukocytosis. Septicemia unlikely at this time. Follow-up blood cultures rodered yesterday. - Echo obtained per ID recommendations in setting of positive blood cultures; r/ o vegetations - Continue with IV Zosyn day 09/09 and IV vancomycin day 3/8 - ID consult (Dr. Lucas) Chronic abscess back - Abscess for 6 weeks associated with old surgical incision site demonstrated on CT 1 x 0.5 cm - Neurosurgery consulted; recommend allowing epithelialization and drainage - Woundcare Consulted Asymptomatic sinus bradycardia - Asymptomatic sinus bradycardia, HR in 40s on monitor during sleep. This corresponds to pts baseline. - ECG from 02/13/18 reviewed, demonstrates Sinus bradycardia at 146, RBBB unchanged from priors. - Holding pts metoprolol - Continue to monitor on tele - Cardiology consult requested for medical optimization in anticipation for surgery given complex cardiac history (Dr. Oleary) - Await results of echo Hx CAD s/p CABG x3, HTN, HLD ASA 81 mg, Lipitor, Plavix, Ramipril holding metoprolol for now Diabetes type 2 ISS Heart healthy diet Hx chronic pain on methadone Methadone [address] Villa Colace 100 BID for constipation Additional Miralax PRN if patient is not moving bowels DVT ppx: lovenox GI: PTX HHD Patient seen, examined, and case discussed w/ attending physician Dr. Emerita Meade DO PGY 1 - Internal Medicine Program Clinician - Pager [phone] <Matteo Felder - Last Filed: 02/14/18 17:10> Objective - Vital Signs/Intake and Output Vital Signs (last 24 hours): Temp Pulse Resp BP Pulse Ox 97.9 F 45 L 20 151/70 H 94 L 02/14/18 07:56 02/14/18 07:56 02/14/18 07:56 02/14/18 09:55 02/14/18 07:56 Intake and Output: 02/14/18 02/14/18 06:59 18:59 Intake Total 2160 Output Total 1150 Balance 1010 - Medications Medications: Current Medications Aspirin (Aspirin Chewable) 81 mg PO DAILY [facility] Last Admin: 02/14/18 09:55 Dose: 81 mg Atorvastatin Calcium (Lipitor) 40 mg PO HS [facility] Last Admin: 02/13/18 21:13 Dose: 40 mg Clonazepam (Klonopin) 1 mg PO BID [facility] PRN Reason: Protocol Last Admin: 02/14/18 09:56 Dose: 1 mg Clopidogrel Bisulfate (Plavix) 75 mg PO DAILY [facility] Last Admin: 02/14/18 09:58 Dose: 75 mg Docusate Sodium (Colace) 100 mg PO BID [facility] Last Admin: 02/14/18 09:56 Dose: 100 mg Enoxaparin Sodium (Lovenox) 40 mg SC DAILY [facility] PRN Reason: Protocol Last Admin: 02/14/18 09:56 Dose: 40 mg Vancomycin HCl (Vancomycin 1gm) 1 gm in 250 mls @ 167 mls/hr IVPB Q12 [facility] PRN Reason: Protocol Last Admin: 02/14/18 09:59 Dose: 167 mls/hr Piperacillin Sod/Tazobactam Sod (Zosyn 3.375 In Ns 100ml) 100 mls @ 200 mls/hr IVPB Q6 [facility] PRN Reason: Protocol Last Admin: 02/14/18 14:25 Dose: 200 mls/hr Insulin Human Regular (Humulin R Low) 0 units SC ACHS [facility] PRN Reason: Protocol Last Admin: 02/14/18 12:07 Dose: 2 unit Methadone HCl (Methadone) 30 mg PO Q12 [facility] Last Admin: 02/14/18 09:58 Dose: 30 mg Metoprolol Succinate (Toprol Xl) 25 mg PO DAILY [facility] Pantoprazole Sodium (Protonix Ec Tab) 40 mg PO 0600 [facility] Last Admin: 02/14/18 05:26 Dose: 40 mg Ramipril (Altace) 1.25 mg PO DAILY [facility] Last Admin: 02/14/18 09:55 Dose: 1.25 mg - Labs Labs: 02/14/18 06:30 02/14/18 06:30 PT 13.7 SECONDS (9.4-12.5) H 02/11/18 16:30 INR 1.20 02/11/18 16:30 APTT 33.5 Seconds (25.1-36.5) 02/11/18 16:30 Attending/Attestation - Attestation I have personally seen and examined this patient.: Yes I have fully participated in the care of the patient.: Yes I have reviewed all pertinent clinical information, including history, physical exam and plan: Yes Notes (Text): 02/14/18 16:39 68 year old male with past medical history of diabetes, dyslipidemia, CAD s/p CABG, COPD, osteomyelitis of right 4th/5th metatarsals and history of thoracic kyphoplasty with internal fixation who presented with right foot diabetic toe ulcer. Xray was the foot was suggestive of osteomyelitis which is confirmed by MRI. Wound culture and blood culture grew MRSA. He is on iv antibiotics. ID and podiatry are following. Arterial doppler was reviewed which showed right SFA and tibial artery occlusive disease. IR evaluation is requested. CT and MRI spine was also reviewed. Neurosurgery evaluation was requested. Will follow up with recommendations. Patient has bradycardia on the monitor, asymptomatic. Metoprolol is on hold. Cardiology evaluation was requested. Echocardiogram is ordered. Matteo Felder MD Hospitalist.
[2018-02-14] MEDS: Insulin Reg-LOW-Coverage SC SCH ×4 (09:56→21:42)
[2018-02-14] MEDS: Enoxaparin 40 mg Syringe SC SCH (09:56)
[2018-02-14] MEDS: Vancomycin 1gm in NS 250ml 1 GM/250 ML BAG IVPB SCH ×2 (09:59→22:20)
--- NOTE | 2018-02-14 10:17 | MRI ---
Date of service: 02/12/2018 PROCEDURE: MRI of the right foot without contrast HISTORY: osteomyelitis COMPARISON: TECHNIQUE: MRI of the right foot was performed in multiple planes using multiple pulse sequences. FINDINGS: There is marrow edema in the proximal and distal phalanx of the great toe. There is also dislocation of the PIP joint. The remaining toes have been amputated and there is erosion of the distal metatarsals. There is no marrow edema in the metatarsals. The report concurs with the preliminary [facility] report IMPRESSION: Marrow edema in the proximal and distal phalanx of the 1st toe consistent with osteomyelitis.
--- NOTE | 2018-02-14 11:35 | CP.PCM.PN ---
<Thien Meade - Last Filed: 02/14/18 11:27> Subjective - Date & Time of Evaluation Date of Evaluation: 02/14/18 Time of Evaluation: 11:27 - Subjective Subjective: Podiatry progress note for attending Dr. Fry 68 y/o diabetic male seen and evaluated at bedside for right plantar hallux ulceration with pain. Patient was resting comfortably and in no acute distress. Patient denies any further pedal complaints or acute overnight events. Dressing is not intact at the time of the visit. Reports that it was taken down to be seen but was never properly applied. Patient denies F/N/V/SOB/chills/posterior calf pain. No other pedal complains. Objective - Vital Signs/Intake and Output Vital Signs (last 24 hours): Temp Pulse Resp BP Pulse Ox 97.9 F 45 L 20 151/70 H 94 L 02/14/18 07:56 02/14/18 07:56 02/14/18 07:56 02/14/18 09:55 02/14/18 07:56 Intake and Output: 02/14/18 02/14/18 06:59 18:59 Intake Total 2160 Output Total 1150 Balance 1010 - Medications Medications: Current Medications Aspirin (Aspirin Chewable) 81 mg PO DAILY [facility] Last Admin: 02/14/18 09:55 Dose: 81 mg Atorvastatin Calcium (Lipitor) 40 mg PO HS [facility] Last Admin: 02/13/18 21:13 Dose: 40 mg Clonazepam (Klonopin) 1 mg PO BID [facility] PRN Reason: Protocol Last Admin: 02/14/18 09:56 Dose: 1 mg Clopidogrel Bisulfate (Plavix) 75 mg PO DAILY [facility] Last Admin: 02/14/18 09:58 Dose: 75 mg Docusate Sodium (Colace) 100 mg PO BID [facility] Last Admin: 02/14/18 09:56 Dose: 100 mg Enoxaparin Sodium (Lovenox) 40 mg SC DAILY [facility] PRN Reason: Protocol Last Admin: 02/14/18 09:56 Dose: 40 mg Vancomycin HCl (Vancomycin 1gm) 1 gm in 250 mls @ 167 mls/hr IVPB Q12 [facility] PRN Reason: Protocol Last Admin: 02/14/18 09:59 Dose: 167 mls/hr Piperacillin Sod/Tazobactam Sod (Zosyn 3.375 In Ns 100ml) 100 mls @ 200 mls/hr IVPB Q6 [facility] PRN Reason: Protocol Last Admin: 02/14/18 05:26 Dose: 200 mls/hr Insulin Human Regular (Humulin R Low) 0 units SC ACHS [facility] PRN Reason: Protocol Last Admin: 02/14/18 09:56 Dose: Not Given Methadone HCl (Methadone) 30 mg PO Q12 [facility] Last Admin: 02/14/18 09:58 Dose: 30 mg Metoprolol Succinate (Toprol Xl) 25 mg PO DAILY [facility] Pantoprazole Sodium (Protonix Ec Tab) 40 mg PO 0600 [facility] Last Admin: 02/14/18 05:26 Dose: 40 mg Ramipril (Altace) 1.25 mg PO DAILY [facility] Last Admin: 02/14/18 09:55 Dose: 1.25 mg - Labs Labs: 02/14/18 06:30 02/14/18 06:30 PT 13.7 SECONDS (9.4-12.5) H 02/11/18 16:30 INR 1.20 02/11/18 16:30 APTT 33.5 Seconds (25.1-36.5) 02/11/18 16:30 - Constitutional Appears: Well, Non-toxic, No Acute Distress - Extremities Exam Additional comments: Lower Extremity Focused Exam VASC: DP pulses non-palpable, PT pulse weakly palpable, TG warm to cool, CFT delayed to all digits, NEURO: Unable to detect protective sensation bilaterally DERM: full thickness ulceration noted to the plantar aspect of the right hallux , positive probes to bone, no malodor, no purulence, primarily granular base, edema and erythema noted to the hallux, positive fluctuance noted MSK: previous amputations of the right 4th and 5th digits, severe contracture and dislocation noted of the right hallux - Neurological Exam Neurological Exam: Alert, Awake, Oriented x3 - Psychiatric Exam Psychiatric exam: Normal Affect, Normal Mood Assessment and Plan - Assessment and Plan (Free Text) Assessment: 68 y/o diabetic male seen and evaluated for right plantar hallux ulceration with pain Plan: Patient was seen and evaluated with attending Dr. Fry Chart, labs and vitals were reviewed Afebrile, absent leukocyotosis; ESR elevated Wound Culture- MRSA Blood Culture- MRSA Foot MRI- Increase in signal intensity indicating marrow edema at the level of distal and proximal phalanx of the hallux consistent with OM Arterial-Venous Dopplers- Pending Patient wound cleased with saline and dressed with betadine, DSD Continue IV Abx as per ID Pending Vascular Consult- recommendations will be appreciated Podiatry plans for partial first ray amputation at this moment - Surgical plan subject to change based on vascular rec Patient to WBAT in forefoot off-loading shoe Podiatry will continue to follow patient while in house <Kishan Fry - Last Filed: 02/14/18 12:38> Objective - Vital Signs/Intake and Output Vital Signs (last 24 hours): Temp Pulse Resp BP Pulse Ox 97.9 F 45 L 20 151/70 H 94 L 02/14/18 07:56 02/14/18 07:56 02/14/18 07:56 02/14/18 09:55 02/14/18 07:56 Intake and Output: 02/14/18 02/14/18 06:59 18:59 Intake Total 2160 Output Total 1150 Balance 1010 - Medications Medications: Current Medications Aspirin (Aspirin Chewable) 81 mg PO DAILY [facility] Last Admin: 02/14/18 09:55 Dose: 81 mg Atorvastatin Calcium (Lipitor) 40 mg PO HS [facility] Last Admin: 02/13/18 21:13 Dose: 40 mg Clonazepam (Klonopin) 1 mg PO BID [facility] PRN Reason: Protocol Last Admin: 02/14/18 09:56 Dose: 1 mg Clopidogrel Bisulfate (Plavix) 75 mg PO DAILY [facility] Last Admin: 02/14/18 09:58 Dose: 75 mg Docusate Sodium (Colace) 100 mg PO BID [facility] Last Admin: 02/14/18 09:56 Dose: 100 mg Enoxaparin Sodium (Lovenox) 40 mg SC DAILY [facility] PRN Reason: Protocol Last Admin: 02/14/18 09:56 Dose: 40 mg Vancomycin HCl (Vancomycin 1gm) 1 gm in 250 mls @ 167 mls/hr IVPB Q12 [facility] PRN Reason: Protocol Last Admin: 02/14/18 09:59 Dose: 167 mls/hr Piperacillin Sod/Tazobactam Sod (Zosyn 3.375 In Ns 100ml) 100 mls @ 200 mls/hr IVPB Q6 [facility] PRN Reason: Protocol Last Admin: 02/14/18 05:26 Dose: 200 mls/hr Insulin Human Regular (Humulin R Low) 0 units SC ACHS [facility] PRN Reason: Protocol Last Admin: 02/14/18 12:07 Dose: 2 unit Methadone HCl (Methadone) 30 mg PO Q12 [facility] Last Admin: 02/14/18 09:58 Dose: 30 mg Metoprolol Succinate (Toprol Xl) 25 mg PO DAILY [facility] Pantoprazole Sodium (Protonix Ec Tab) 40 mg PO 0600 [facility] Last Admin: 02/14/18 05:26 Dose: 40 mg Ramipril (Altace) 1.25 mg PO DAILY [facility] Last Admin: 02/14/18 09:55 Dose: 1.25 mg - Labs Labs: 02/14/18 06:30 02/14/18 06:30 PT 13.7 SECONDS (9.4-12.5) H 02/11/18 16:30 INR 1.20 02/11/18 16:30 APTT 33.5 Seconds (25.1-36.5) 02/11/18 16:30 Attending/Attestation - Attestation I have personally seen and examined this patient.: Yes I have fully participated in the care of the patient.: Yes I have reviewed all pertinent clinical information, including history, physical exam and plan: Yes
[2018-02-14] MEDS ORDERED: POLYETHYLENE GLYCOL 3350 17 GM/Dose PACKET PO ONE (15:38)
--- NOTE | 2018-02-14 18:48 | CARD ---
APPROVED REPORT Date of service: 02/14/2018 EXAM: Two-dimensional and M-mode echocardiogram with Doppler and color Doppler. INDICATION 2D DIMENSIONS IVSd1.5 (0.7-1.1cm)LVDd4.2 (3.9-5.9cm) PWd1.3 (0.7-1.1cm)LVDs2.9 (2.5-4.0cm) FS (%) 31.2 %LVEF (%)59.3 (>50%) M-Mode DIMENSIONS Left Atrium (MM)4.60 (2.5-4.0cm)Aortic Root3.00 (2.2-3.7cm) Aortic Cusp Exc.1.50 (1.5-2.0cm) Aortic Valve AoV Peak Yntvbilk834.0cm/sAoV VTI44.1cmAO Peak GR.9mmHg LVOT Peak Xnrhkorn886.0cm/sLVOT VTI30.90cmAO Mean GR.5mmHg Mitral Valve MV E Uczamjif86.9cm/sMV E Peak Gr.134mmHgMV A Gnrfujiv83.6cm/s E/A ratio1.4 TDI Lateral E' Peak V10.10cm/sMedial E' Peak V8.29cm/sE/Lateral E'8.3 E/Medial E'10.1 Tricuspid Valve TR Peak Wjtoumyh988bb/sRAP IKZBOBVP40dsWtAA Peak Gr.31mmHg FMBD89zdNo LEFT VENTRICLE The left ventricle is normal size. There is mild to moderate concentric left ventricular hypertrophy. low normal, EF-50% There is mild hypokinesis in the mid-inferolateral wall. The left ventricular diastolic function is normal. No left ventricle thrombus noted on this study. There is no ventricular septal defect visualized. There is no left ventricular aneurysm. There is no mass noted in the left ventricle. RIGHT VENTRICLE The right ventricle is normal size. There is normal right ventricular wall thickness. The right ventricular systolic function is normal. ATRIA The left atrium is mildly dilated. The right atrium size is normal. The interatrial septum is intact with no evidence for an atrial septal defect. AORTIC VALVE The aortic valve is mildly to moderately sclerotic. There is trace aortic regurgitation. There is no aortic valvular stenosis. There is no aortic valvular vegetation. MITRAL VALVE The mitral valve is calcified but opens well. Mitral regurgitation is mild to moderate. There is no mitral valve stenosis. There is no evidence of mitral valve prolapse. TRICUSPID VALVE The tricuspid valve leaflets are thickened , but open well. There is trace to mild tricuspid regurgitation.RVSP-41 mmof hg. There is no tricuspid valve stenosis. There is no tricuspid valve prolapse or vegetation. PULMONIC VALVE The pulmonic valve is borderline thickened. There is trace to mild pulmonic valvular regurgitation. There is no pulmonic valvular stenosis. GREAT VESSELS The aortic root is normal in size. The ascending aorta is normal in size. The pulmonary artery is normal. The IVC is normal in size and collapses >50% with inspiration. PERICARDIAL EFFUSION There is no pleural effusion. There is no pericardial effusion. <Conclusion> The left ventricle is normal size. There is mild to moderate concentric left ventricular hypertrophy. low normal, EF-50% There is trace aortic regurgitation. Mitral regurgitation is mild to moderate. There is trace to mild tricuspid regurgitation.RVSP-41 mmof hg. The IVC is normal in size and collapses >50% with inspiration. There is no pericardial effusion. No Obvious vegetation noted in this study.
--- NOTE | 2018-02-14 20:46 | CP.PCM.PN ---
Subjective - Date & Time of Evaluation Date of Evaluation: 02/14/18 Time of Evaluation: 13:10 - Subjective Subjective: Comfortable, no increased pain in the back or right foot, no fevers, no nausea, no diarrhea. Objective - Vital Signs/Intake and Output Vital Signs (last 24 hours): Temp Pulse Resp BP Pulse Ox 97.9 F 45 L 20 151/70 H 94 L 02/14/18 07:56 02/14/18 07:56 02/14/18 07:56 02/14/18 09:55 02/14/18 07:56 Intake and Output: 02/14/18 02/14/18 06:59 18:59 Intake Total 2160 Output Total 1150 Balance 1010 - Medications Medications: Current Medications Aspirin (Aspirin Chewable) 81 mg PO DAILY [facility] Last Admin: 02/14/18 09:55 Dose: 81 mg Atorvastatin Calcium (Lipitor) 40 mg PO HS [facility] Last Admin: 02/13/18 21:13 Dose: 40 mg Clonazepam (Klonopin) 1 mg PO BID [facility] PRN Reason: Protocol Last Admin: 02/14/18 09:56 Dose: 1 mg Clopidogrel Bisulfate (Plavix) 75 mg PO DAILY [facility] Last Admin: 02/14/18 09:58 Dose: 75 mg Docusate Sodium (Colace) 100 mg PO BID [facility] Last Admin: 02/14/18 09:56 Dose: 100 mg Enoxaparin Sodium (Lovenox) 40 mg SC DAILY [facility] PRN Reason: Protocol Last Admin: 02/14/18 09:56 Dose: 40 mg Vancomycin HCl (Vancomycin 1gm) 1 gm in 250 mls @ 167 mls/hr IVPB Q12 [facility] PRN Reason: Protocol Last Admin: 02/14/18 09:59 Dose: 167 mls/hr Piperacillin Sod/Tazobactam Sod (Zosyn 3.375 In Ns 100ml) 100 mls @ 200 mls/hr IVPB Q6 [facility] PRN Reason: Protocol Last Admin: 02/14/18 05:26 Dose: 200 mls/hr Insulin Human Regular (Humulin R Low) 0 units SC ACHS [facility] PRN Reason: Protocol Last Admin: 02/14/18 09:56 Dose: Not Given Methadone HCl (Methadone) 30 mg PO Q12 [facility] Last Admin: 02/14/18 09:58 Dose: 30 mg Metoprolol Succinate (Toprol Xl) 25 mg PO DAILY [facility] Pantoprazole Sodium (Protonix Ec Tab) 40 mg PO 0600 [facility] Last Admin: 02/14/18 05:26 Dose: 40 mg Ramipril (Altace) 1.25 mg PO DAILY [facility] Last Admin: 02/14/18 09:55 Dose: 1.25 mg - Labs Labs: 02/14/18 06:30 02/14/18 06:30 PT 13.7 SECONDS (9.4-12.5) H 02/11/18 16:30 INR 1.20 02/11/18 16:30 APTT 33.5 Seconds (25.1-36.5) 02/11/18 16:30 - Constitutional Appears: Non-toxic, Chronically Ill - Head Exam Head Exam: NORMAL INSPECTION - ENT Exam ENT Exam: Mucous Membranes Moist - Neck Exam Neck Exam: absent: Meningismus - Respiratory Exam Respiratory Exam: Decreased Breath Sounds - Cardiovascular Exam Cardiovascular Exam: +S1, +S2 - GI/Abdominal Exam GI & Abdominal Exam: Soft. absent: Tenderness - Extremities Exam Additional comments: right foot with dressings in place - Back Exam Additional comments: small opening in the medial thoracic back area without discharge Assessment and Plan - Assessment and Plan (Free Text) Plan: Assessment MRSA bacteremia with 1st right toe oteomyelitis, R/O other sources of infection (R/O endocarditis, R/O thoracic hardware laminectomy infection) history of right foot infected ulcer at site of 5th metatarsal amputation for previous osteomyelitis S/P partial amputation of the 5th ray history of skin and skin structure infection at the site of previous laminectomy and hardware placement history of HCAP history MRSA bacteremia with discitis and osteomyelitis S/P decompression laminectomy with fusion hardware history of Cholelithiasis S/P cholecystectomy coronary artery disease hypertension diabetes mellitus dementia history of right foot osteomyelitis and amputation of right second toe CAD S/P PCI with cardiac stents placed and coronary bypass graft Plan will continue Vancomycin and get Vanco trough; repeat blood cx are negative, will need 2D echo; follow up MRI of the thoracic spine will monitor clinically for amputation of right 1st toe this week
[2018-02-14] MEDS: Sodium Chloride 0.45% 1,000 ML IV SCH (21:38)
--- NOTE | 2018-02-14 21:48 | CON ---
Copied To: Leif Lyons MD Attending MD: Leif Lyons MD DATE: 02/14/2018 TIME: 07:25 p.m. CHIEF COMPLAINT/HISTORY OF PRESENT ILLNESS: Mr. 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 His past medical history is significant for diabetes. Mr. Cote continues to smoke. He has hypertension, hyperlipidemia and previous CABG. The patient states that he has had an ulceration to great toe for approximately 7-10 days. Mild pain is present, but the patient is neuropathic. He has been noncompliant with [facility]. He has palpable right femoral and popliteal pulse. His pedal pulses are not palpable. His recent IVELISSE/PVR exam demonstrates right SFA and tibial disease. I spoke with Dr. Fry. His plan is a right great toe amputation on . Likelihood of healing without some form of revascularization is limited. I discussed the situation with Mr. Cote. We will perform an arteriogram and see if any endovascular revascularization intervention can be performed. He agrees and understands the risks. He would like to avoid an amputation if possible. Leif Lyons MD MTDD
--- NOTE | 2018-02-14 23:47 | CON ---
Copied To: Jake Hoff MD Attending MD: Jake Hoff MD DATE: 02/14/2018 REASON FOR CONSULTATION: Draining wound, thoracic spine. HISTORY OF PRESENT ILLNESS: The patient is a 68-year-old young gentleman who is well known to me. He had diskitis and vertebral osteomyelitis back in 2015 with collapse at those levels and resultant cord compression. In 01/2016, he underwent a T6 and T7 laminectomy with a T4-T9 fusion, placing pedicle screws in T4, T5, T8, T9 levels. He was seen in 08/2016 by myself and 01/[address] Bergman, one of my partners, for drainage from one area of his incision. He has always remained afebrile and had normal white counts and no complaints of pain. No systemic issues at all. He never wanted anything more extensive done as it never bothers him and does not hurt him at all. This is the case at this time also. He has had multiple admissions in the past as well for issues concerning his right foot. PAST MEDICAL HISTORY: Significant for diabetes, hypertension, hyperlipidemia, coronary artery disease. MEDICATIONS: As listed on the chart. PAST SURGICAL HISTORY: Includes a spine surgery as mentioned above. He had amputations of fourth and fifth toes in 03/2017. ALLERGIES: HE HAS NO KNOWN ALLERGIES. SOCIAL HISTORY: He has been half a pack a day smoker, 50 years. He states he drinks half a pint of alcohol a month, but reportedly stopped a year ago. 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 PHYSICAL EXAMINATION: NEUROLOGIC: He has a small area of drainage from the upper thoracic region. No obvious collection that has squeezed, just a very tiny bead comes out. Again, he has no complaints of pain whatsoever. LABORATORY DATA: When he was admitted with drainage and malodor coming from his right great toe and presumed osteomyelitis, his sed rate is 47, C-reactive protein was greater than 15. His white count on admission was 11, but has been 6000 or so ever since. He has remained afebrile and again he has no complaints of pain in the back. He had a CAT scan as well as an MRI of thoracic spine done. On the CAT scan, there is a question of small pocket of air and possible very small abscess present and does not visualize at all on the MRI scan. IMPRESSION: Is that of chronic osteomyelitis with draining sinus. At this point, the only way of really trying to clean everything up so to speak would be to open everything back up, perhaps take out the hardware and consider removing doing corpectomies of the vertebral bodies. However, they appeared to have auto fused and do not see any abnormal signal on those bodies compared to the other ones now, so presumably that has been under control. Therefore, would not recommend any then and he does not want any extensive surgery or anything done. He has no complaints here and this will close up and then spontaneously drain again and close up and at this point just obviously his foot is the more acute problem and for this we will just recommend local wound care as he has been getting evidently over the past year and a half or so at least and go from there. Thank you for allowing me to participate in the care of your patient. Jake Hoff MD
[2018-02-15] MEDS: Pantoprazole 40 mg EC Tab PO SCH (06:01)
--- NOTE | 2018-02-15 07:17 | CP.PCM.PN ---
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 No acute events overnight. He is on day 4 of both Zosyn and vancomycin for his chronic wound. The pt reports no fever, chills, dyspnea, chest pain, and vomiting, abdominal pain, abdominal pain , rash. Last bowel movement was last night and was normal. No diarrhea. He is tolerating his meals. Pain in his R foot and over his back is well-controlled. He reports no changes from yesterday with his chronic back wound. He has been urinating normally. Plans regarding back wound, and R foot osteo were discussed with patient. He is aware that he may require amputation of the digit if vascularization studies reveal poor perfusion. 12 system ROS otherwise negative. Objective - Vital Signs/Intake and Output Vital Signs (last 24 hours): Temp Pulse Resp BP Pulse Ox 97.8 F 50 L 20 117/65 96 02/14/18 16:52 02/14/18 16:52 02/14/18 16:52 02/14/18 16:52 02/14/18 16:52 Intake and Output: 02/15/18 02/15/18 06:59 18:59 Intake Total 1210 Balance 1210 - Medications Medications: Current Medications Aspirin (Aspirin Chewable) 81 mg PO DAILY [facility] Last Admin: 02/14/18 09:55 Dose: 81 mg Atorvastatin Calcium (Lipitor) 40 mg PO HS [facility] Last Admin: 02/14/18 21:41 Dose: 40 mg Clonazepam (Klonopin) 1 mg PO BID [facility] PRN Reason: Protocol Last Admin: 02/14/18 17:28 Dose: 1 mg Clopidogrel Bisulfate (Plavix) 75 mg PO DAILY [facility] Last Admin: 02/14/18 09:58 Dose: 75 mg Docusate Sodium (Colace) 100 mg PO BID [facility] Last Admin: 02/14/18 17:27 Dose: 100 mg Enoxaparin Sodium (Lovenox) 40 mg SC DAILY [facility] PRN Reason: Protocol Last Admin: 02/14/18 09:56 Dose: 40 mg Vancomycin HCl (Vancomycin 1gm) 1 gm in 250 mls @ 167 mls/hr IVPB Q12 [facility] PRN Reason: Protocol Last Admin: 02/14/18 22:20 Dose: 167 mls/hr Sodium Chloride (Sodium Chloride 0.45%) 1,000 mls @ 80 mls/hr IV .[id number] [facility] Stop: 02/16/18 12:00 Last Admin: 02/14/18 21:38 Dose: 80 mls/hr Insulin Human Regular (Humulin R Low) 0 units SC ACHS [facility] PRN Reason: Protocol Last Admin: 02/14/18 21:42 Dose: Not Given Methadone HCl (Methadone) 30 mg PO Q12 [facility] Last Admin: 02/14/18 21:41 Dose: 30 mg Metoprolol Succinate (Toprol Xl) 25 mg PO DAILY [facility] Pantoprazole Sodium (Protonix Ec Tab) 40 mg PO 0600 [facility] Last Admin: 02/15/18 06:01 Dose: 40 mg Ramipril (Altace) 1.25 mg PO DAILY [facility] Last Admin: 02/14/18 09:55 Dose: 1.25 mg - Labs Labs: 02/14/18 06:30 02/14/18 06:30 PT 13.7 SECONDS (9.4-12.5) H 02/11/18 16:30 INR 1.20 02/11/18 16:30 APTT 33.5 Seconds (25.1-36.5) 02/11/18 16:30 Physical - Constitutional Appears: Well, Non-toxic - Head Exam Head Exam: ATRAUMATIC, NORMOCEPHALIC - Eye Exam Eye Exam: EOMI, PERRL. absent: Scleral icterus - ENT Exam ENT Exam: Mucous Membranes Moist, Normal Exam - Respiratory Exam Respiratory Exam: Clear to Ausculation Bilateral, NORMAL BREATHING PATTERN. absent: Rales, Rhonchi, Wheezes, Respiratory Distress - Cardiovascular Exam Cardiovascular Exam: REGULAR RHYTHM, +S1, +S2. absent: Murmur Additional comments: Felix overnight on tele - GI/Abdominal Exam GI & Abdominal Exam: Soft. absent: Tenderness - Extremities Exam Additional comments: DP and PT pulses not palpable on the R. 1+ DP pulses palpated on the L foot, L PT pulse not palpable. Extremities: R leg: venous stasis dermatitis present to the level of the tibial tuberosity. R Charcot foot deformity. Non-pitting edema present over dorsum of R foot. 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 Significant bony deformity and contracture of the distal R great toe at the DIP. Ulcer of the plantar aspect of R toe, 2.3 cm in longest dimension, base composed of granulation tissue. Wound not probed on exam. - Back Exam Back Exam: absent: CVA tenderness (L), CVA tenderness (R) Additional comments: Upper back examined. Midline scar present T3 through T7. Bandage in place over T6 midline. Some purulent drainage seen through bandage. No signs of lymphangitis or cellulitis. 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 Osteomyelitis in setting of chronic neuropathic wound of R 1st toe - Osteomyelitis suggested on XR R foot and MRI R foot. - Doppler US demonstrated limited exam 2/2 to heavy calcification and stenosis, demonstrated occlusive disease of R tibial artery and R superficial femoral artery. - Continue Zosyn and vancomycin per ID recommendations - Wound culture + for MRSA; susceptible to clindamycin, gentamicin, linezolid, tetracycline, Bactrim, vancomycin - Arteriography of R leg planned for today, per Vascular recommendation (Dr. Lyons), to assess extent of patients vasculopathy and predict outcome of amputation at level of foot vs more proximal amputation. - Plan for OR tomorrow w Dr. Fry pending arteriography studies for amputation of R hallux - Plan for pt in WBAT forefoot off-loading shoe. Follow-up PT recommendations Positive blood culture 1/2 @ 48 hrs - Blood cultures obtained, return significant for MRSA on first day, return negative on second day. Most likely positive culture was contaminant. Still no fever or leukocytosis. Septicemia unlikely at this time. Continue to follow blood cultures. - Repeat blood culture was negative @ 24 hours - Echo obtained per ID recommendations in setting of positive blood cultures returned with no findings significant with valvular vegetations or signs of endocarditis. - ID consult (Dr. Lucas), continue with IV Zosyn day 10/10 and IV vancomycin day per recommendations Chronic abscess back - Abscess since 08/2015 associated with old surgical incision site demonstrated on CT 1 x 0.5 cm - Neurosurgery consulted, spoke with Dr. Hoff. Pt has not followed up with neurosurgery as outpatient. First evaluated for this problem 08/2015. Asymptomatic sinus bradycardia - Pt continues to have asymptomatic sinus bradycardia, HR in 50s on monitor during sleep. This corresponds to pts baseline. ECG from 02/13/18 reviewed, demonstrates Sinus bradycardia at 146, RBBB unchanged from priors. - Echo reveals no vegetations, mild concentric LVH, EF 59%. - Continue holding pts metoprolol for now. Continue to monitor on tele - Cardiology consult requested for assessment of cardiac risk in anticipation for surgery given complex cardiac history (Dr. Oleary). - No cardiac issues which would limit necessity for surgery at this time Hx CAD s/p CABG x3, HTN, HLD ASA 81 mg, Lipitor, Plavix, Ramipril holding metoprolol for now Diabetes type 2 ISS Heart healthy diet Hx chronic pain on methadone Methadone [address] Allen Kendall 100 bid for constipation, Miralax PRN for constipation Dispo: Patient to undergo R 1st Ray amputation w/ Podiatry on 02/16 AM Pt. seen examined, and discussed at length with attending physician Dr. Emerita Meade DO PGY1 Internal Medicine - Pager [phone] <Matteo Felder - Last Filed: 02/16/18 06:39> Objective - Vital Signs/Intake and Output Vital Signs (last 24 hours): Temp Pulse Resp BP Pulse Ox 98.1 F 82 20 139/66 98 02/16/18 06:00 02/16/18 06:00 02/16/18 06:00 02/16/18 06:00 02/16/18 06:00 Intake and Output: 02/15/18 02/16/18 18:59 06:59 Intake Total 160 1530 Output Total 100 1200 Balance 60 330 - Medications Medications: Current Medications Aspirin (Aspirin Chewable) 81 mg PO DAILY [facility] Last Admin: 02/15/18 10:22 Dose: 81 mg Atorvastatin Calcium (Lipitor) 40 mg PO HS [facility] Last Admin: 08/14/18 21:18 Dose: 40 mg Clonazepam (Klonopin) 1 mg PO BID [facility] PRN Reason: Protocol Last Admin: 02/15/18 17:59 Dose: 1 mg Clopidogrel Bisulfate (Plavix) 75 mg PO DAILY [facility] Last Admin: 02/15/18 10:23 Dose: 75 mg Docusate Sodium (Colace) 100 mg PO BID [facility] Last Admin: 02/15/18 17:59 Dose: 100 mg Enoxaparin Sodium (Lovenox) 40 mg SC DAILY [facility] PRN Reason: Protocol Last Admin: 02/15/18 10:23 Dose: 40 mg Vancomycin HCl (Vancomycin 1gm) 1 gm in 250 mls @ 167 mls/hr IVPB Q12 [facility] PRN Reason: Protocol Last Admin: 02/15/18 21:18 Dose: 167 mls/hr Sodium Chloride (Sodium Chloride 0.45%) 1,000 mls @ 80 mls/hr IV .[id number] [facility] Stop: 02/16/18 12:00 Last Admin: 02/15/18 17:23 Dose: 80 mls/hr Insulin Human Regular (Humulin R Low) 0 units SC ACHS [facility] PRN Reason: Protocol Last Admin: 02/15/18 21:37 Dose: Not Given Methadone HCl (Methadone) 30 mg PO Q12 [facility] Last Admin: 02/15/18 21:18 Dose: 30 mg Ondansetron HCl (Zofran Inj) 4 mg IVP ONCE PRN PRN Reason: Nausea/Vomiting Pantoprazole Sodium (Protonix Ec Tab) 40 mg PO 0600 [facility] Last Admin: 02/16/18 05:07 Dose: Not Given Ramipril (Altace) 1.25 mg PO DAILY [facility] Last Admin: 02/15/18 10:22 Dose: 1.25 mg - Labs Labs: 02/15/18 06:45 02/15/18 06:45 PT 13.7 SECONDS (9.4-12.5) H 02/11/18 16:30 INR 1.20 02/11/18 16:30 APTT 33.5 Seconds (25.1-36.5) 02/11/18 16:30 Attending/Attestation - Attestation I have personally seen and examined this patient.: Yes I have fully participated in the care of the patient.: Yes I have reviewed all pertinent clinical information, including history, physical exam and plan: Yes Notes (Text): 02/15/18 68 year old male with past medical history of diabetes, dyslipidemia, CAD s/p CABG, COPD, osteomyelitis of right 4th/5th metatarsals and history of thoracic kyphoplasty with internal fixation who presented with right foot diabetic toe ulcer. Xray and MRI of foot are suggestive of osteomyeliti. Wound culture and blood culture grew MRSA. Repeat blood culture is negative to date. He is on iv antibiotics. ID and podiatry are following. Plan for possible amputation of toe later this week, in which case aspirin, plavix and lovenox will be held. Arterial doppler was reviewed which showed right SFA and tibial artery occlusive disease. IR evaluation was appreciated and patient is for angioplasty today. CT and MRI spine was also reviewed. Neurosurgery evaluation was appreciated. Patient has bradycardia on the monitor, asymptomatic. Metoprolol is on hold. Echocardiogram was reviewed. Cardiology evaluation was appreciated. Matteo Felder MD Hospitalist.
[2018-02-15 07:25] LABS: BASO # 0.03 K/mm3 (0.0-2.0); BASO % 0.5 % (0.0-3.0); EOS # 0.3 (0.0-0.7); EOS % 4.8 % (1.5-5.0); GRAN # 3.72 (1.4-6.5); GRAN % 57.3 % (50.0-68.0); HEMOGLOBIN 10.8 g/dL (14.0-18.0); LYMPH # 1.9 (1.2-3.4); LYMPH % 28.9 % (22.0-35.0); MEAN CELL VOLUME 79.2 fl (80.0-105.0); MEAN CORPUSCULAR HEMOGLOBIN 25.5 pg (25.0-35.0); MEAN CORPUSCULAR HGB CONC 32.2 g/dl (31.0-37.0); MEAN PLATELET VOLUME 9.3 fl (7.0-11.0); MONO # 0.6 (0.1-0.6); MONO % 8.5 % (1.0-6.0); RBC 4.23 10^6/uL (3.5-6.1); RED CELL DISTRIBUTION WIDTH 16.5 % (11.5-14.5); WHITE BLOOD COUNT 6.5 10^3/ul (4.5-11.0)
[2018-02-15 07:35] LABS: ALB/GLOB RATIO 0.9 (1.1-1.8); ALBUMIN 3.2 g/dL (3.0-4.8); ALT/SGPT 28 U/L (7-56); AST/SGOT 36 U/L (17-59); BLOOD UREA NITROGEN 15 mg/dL (7-21); CALCIUM 8.9 mg/dL (8.4-10.5); GFR AFRICAN-AMERICAN > 60; GFR NON-AFRICAN AMERICAN > 60
[2018-02-15] MEDS: Insulin Reg-LOW-Coverage SC SCH ×3 (09:16→21:37)
[2018-02-15] MEDS: Enoxaparin 40 mg Syringe SC SCH (10:23)
[2018-02-15] MEDS: Vancomycin 1gm in NS 250ml 1 GM/250 ML BAG IVPB SCH ×2 (10:23→21:18)
--- NOTE | 2018-02-15 12:21 | CON ---
Copied To: Leif Oleary MD Attending MD: Leif Oleary MD DATE: 02/15/2018 CARDIOLOGY CONSULTATION HISTORY OF PRESENT ILLNESS: The patient is a 68-year-old male who presents with a foot ulcer. The patient is scheduled for surgery. PAST MEDICAL HISTORY: Notable for COPD as well as peripheral vascular disease. He has been treated with Plavix. The patient continues to smoke despite multiple episodes, in which he has been advised about the need to stop. He denies chest pain. Denies shortness of breath. REVIEW OF SYSTEMS: A 14-point review of systems is reviewed in detail. No exertional dyspnea. No angina. No previous myocardial infarction in the past. No previous documented coronary artery disease in the past. PHYSICAL EXAMINATION: VITAL SIGNS: Blood pressure is 152/72, the heart rate is in the 40s, normal sinus rhythm. NECK: Negative JVD. LUNGS: Without rales. HEART: S1 and S2. EXTREMITIES: Ulcer is noted without edema. LABORATORY DATA AND IMAGING: EKG shows marked sinus bradycardia with nonspecific ST-T changes. Hemoglobin is 10.8. Chemistries, BUN and creatinine unremarkable. Glucose is 116. Echocardiogram reveals normal LV function with [id number] pulmonary hypertension. IMPRESSION: 1. Foot ulcer. 2. Marked bradycardia secondary to beta-blockers. 3. No evidence for acute ischemic cardiac issues. 4. Normal left ventricular function. 5. Moderate pulmonary hypertension. 6. Chronic obstructive pulmonary disease. 7. Peripheral vascular disease and diabetes mellitus. PLAN: Given these findings, there are no acute cardiac issues at this time that would limit his need for surgery at this time. We will stop his beta-blockers given the marked bradycardia. I have discussed with the patient about the need to stop smoking. Leif Oleary MD : 02/15/2018 10:51:13
[2018-02-15] MEDS ORDERED: Lidocaine PF 2% (5 ml) Inj (For Cardiac Arrhy) ONE (14:45)
[2018-02-15] MEDS ORDERED: Nitroglycerin 50mg in D5W 50 MG/250 ML BOTTLE IV ONE (14:46)
[2018-02-15] MEDS ORDERED: Iodixanol 320 MG/ML 100 ML BOTTLE IV ONE (14:46)
[2018-02-15] MEDS ORDERED: Midazolam 2 MG/2 ML VIAL ONE ×2 (14:47→15:18)
--- NOTE | 2018-02-15 15:38 | CP.PCM.PN ---
<Sheri Alvarado - Last Filed: 02/15/18 15:39> Subjective - Date & Time of Evaluation Date of Evaluation: 02/15/18 Time of Evaluation: 09:00 - Subjective Subjective: PGY-3 infectious disease progress note for Dr. Lucas Patient seen and examined at bedside. Patient denies any pain. He states that he is feeling better however reports general fatigue. Patient denies any fever, chills, chest pain, n/v, sob, dysuria, abd pain. Tolerating diet. Right foot dressing changes yesterday per podiatry Objective - Vital Signs/Intake and Output Vital Signs (last 24 hours): Temp Pulse Resp BP Pulse Ox 97.8 F 45 L 20 152/72 H 98 02/15/18 08:32 02/15/18 08:32 02/15/18 08:32 02/15/18 10:22 02/15/18 08:32 Intake and Output: 02/15/18 02/15/18 06:59 18:59 Intake Total 1210 Balance 1210 - Medications Medications: Current Medications Aspirin (Aspirin Chewable) 81 mg PO DAILY [facility] Last Admin: 02/15/18 10:22 Dose: 81 mg Atorvastatin Calcium (Lipitor) 40 mg PO HS [facility] Last Admin: 02/14/18 21:41 Dose: 40 mg Clonazepam (Klonopin) 1 mg PO BID [facility] PRN Reason: Protocol Last Admin: 02/15/18 10:23 Dose: 1 mg Clopidogrel Bisulfate (Plavix) 75 mg PO DAILY [facility] Last Admin: 02/15/18 10:23 Dose: 75 mg Docusate Sodium (Colace) 100 mg PO BID [facility] Last Admin: 02/15/18 10:23 Dose: 100 mg Enoxaparin Sodium (Lovenox) 40 mg SC DAILY [facility] PRN Reason: Protocol Last Admin: 02/15/18 10:23 Dose: 40 mg Vancomycin HCl (Vancomycin 1gm) 1 gm in 250 mls @ 167 mls/hr IVPB Q12 [facility] PRN Reason: Protocol Last Admin: 02/15/18 10:23 Dose: 167 mls/hr Sodium Chloride (Sodium Chloride 0.45%) 1,000 mls @ 80 mls/hr IV .[id number] [facility] Stop: 02/16/18 12:00 Last Admin: 02/14/18 21:38 Dose: 80 mls/hr Insulin Human Regular (Humulin R Low) 0 units SC ACHS [facility] PRN Reason: Protocol Last Admin: 02/15/18 09:16 Dose: Not Given Methadone HCl (Methadone) 30 mg PO Q12 [facility] Last Admin: 02/15/18 10:22 Dose: 30 mg Pantoprazole Sodium (Protonix Ec Tab) 40 mg PO 0600 [facility] Last Admin: 02/15/18 06:01 Dose: 40 mg Ramipril (Altace) 1.25 mg PO DAILY [facility] Last Admin: 02/15/18 10:22 Dose: 1.25 mg - Labs Labs: 02/15/18 06:45 02/15/18 06:45 PT 13.7 SECONDS (9.4-12.5) H 02/11/18 16:30 INR 1.20 02/11/18 16:30 APTT 33.5 Seconds (25.1-36.5) 02/11/18 16:30 - Constitutional Appears: Well, No Acute Distress - Head Exam Head Exam: ATRAUMATIC, NORMAL INSPECTION, NORMOCEPHALIC - Eye Exam Eye Exam: Normal appearance - ENT Exam ENT Exam: Mucous Membranes Moist - Respiratory Exam Respiratory Exam: Clear to Ausculation Bilateral, NORMAL BREATHING PATTERN. absent: Decreased Breath Sounds, Rales, Rhonchi, Wheezes, Respiratory Distress, Stridor - Cardiovascular Exam Cardiovascular Exam: REGULAR RHYTHM, +S1, +S2. absent: Bradycardia, Tachycardia , Murmur - GI/Abdominal Exam GI & Abdominal Exam: Soft, Normal Bowel Sounds. absent: Distended, Firm, Guarding, Tenderness - Extremities Exam Extremities Exam: absent: Pedal Edema Additional comments: dressing clean, dry and intact - Neurological Exam Neurological Exam: Alert, Awake, Oriented x3 Assessment and Plan - Assessment and Plan (Free Text) Assessment: 68 yo male with PMH of right foot infected ulcer at site of 5th metatarsal amputation, previous osteomyelitis, skin and skin structure infection at the site of previous laminectomy and hardware placement, HCAP, MRSA bacteremia, Cholelithiasis S/P cholecystectomy, coronary artery disease, hypertension, diabetes mellitus, dementia presented with MRSA bacteremia with 1st right toe oteomyelitis will need to R/O other sources of infection. Echo did not show vegation. MRI report states suspected small abscess within the mid posterior paraspinal subcutaneous tissues not appreciated on this exam ; this is largely in part due to significant susceptibility artifact with partial obscuration of the canal and surrounding structures over the fused segments. Consider WBC scan to evaluate for possibles abscess. Neurosurgery recommend local wound management. Podiarty is planing amputation of right great toes. IR recommended arteriogram to evaluate for possible revascularization intervention. Consider WBC scan to evaluate for possible abscess at T4, T5. Continue vancomycin, follow up vanco trough. case reviewed and discussed with attending <Francois Lucas - Last Filed: 02/15/18 17:27> Objective - Vital Signs/Intake and Output Vital Signs (last 24 hours): Temp Pulse Resp BP Pulse Ox 97.4 F L 43 L 18 99/40 L 98 02/15/18 16:53 02/15/18 16:53 02/15/18 16:53 02/15/18 16:53 02/15/18 08:32 Intake and Output: 02/15/18 02/15/18 06:59 18:59 Intake Total 1210 Balance 1210 - Medications Medications: Current Medications Aspirin (Aspirin Chewable) 81 mg PO DAILY [facility] Last Admin: 02/15/18 10:22 Dose: 81 mg Atorvastatin Calcium (Lipitor) 40 mg PO HS [facility] Last Admin: 02/14/18 21:41 Dose: 40 mg Clonazepam (Klonopin) 1 mg PO BID [facility] PRN Reason: Protocol Last Admin: 02/15/18 10:23 Dose: 1 mg Clopidogrel Bisulfate (Plavix) 75 mg PO DAILY [facility] Last Admin: 02/15/18 10:23 Dose: 75 mg Docusate Sodium (Colace) 100 mg PO BID [facility] Last Admin: 02/15/18 10:23 Dose: 100 mg Enoxaparin Sodium (Lovenox) 40 mg SC DAILY [facility] PRN Reason: Protocol Last Admin: 02/15/18 10:23 Dose: 40 mg Vancomycin HCl (Vancomycin 1gm) 1 gm in 250 mls @ 167 mls/hr IVPB Q12 [facility] PRN Reason: Protocol Last Admin: 02/15/18 10:23 Dose: 167 mls/hr Sodium Chloride (Sodium Chloride 0.45%) 1,000 mls @ 80 mls/hr IV .[id number] [facility] Stop: 02/16/18 12:00 Last Admin: 02/15/18 17:23 Dose: 80 mls/hr Insulin Human Regular (Humulin R Low) 0 units SC ACHS [facility] PRN Reason: Protocol Last Admin: 02/15/18 17:23 Dose: Not Given Methadone HCl (Methadone) 30 mg PO Q12 [facility] Last Admin: 02/15/18 10:22 Dose: 30 mg Ondansetron HCl (Zofran Inj) 4 mg IVP ONCE PRN PRN Reason: Nausea/Vomiting Pantoprazole Sodium (Protonix Ec Tab) 40 mg PO 0600 [facility] Last Admin: 02/15/18 06:01 Dose: 40 mg Ramipril (Altace) 1.25 mg PO DAILY [facility] Last Admin: 02/15/18 10:22 Dose: 1.25 mg - Labs Labs: 02/15/18 06:45 02/15/18 06:45 PT 13.7 SECONDS (9.4-12.5) H 02/11/18 16:30 INR 1.20 02/11/18 16:30 APTT 33.5 Seconds (25.1-36.5) 02/11/18 16:30 Assessment and Plan - Assessment and Plan (Free Text) Assessment: Infectious Diseases Attending Physician Addendum Patient seen and examined, discussed with biomedical service engineer. I have reviewed the pertinent clinical information for the patient, including history of present illness, medical, personal and social histories, lab results and imaging findings. I agree with the above findings, assessment and plan. In addition, will continue Vancomycin for this patient with MRSA bacteremia with right hallux osteomyelitis, R/O hardware infection, S/P thoracic spine laminectomy and fusion hardware placement. Would recommend tagged WBC scan since MRI of thoracic spine was equivocal due to artifact imaging and the CT thoracic spine was suggesting small abscess in the T4-T5 area (site of previous abscess). Will follow up Aleyda bradley.
[2018-02-15] MEDS: Sodium Chloride 0.45% 1,000 ML IV SCH (17:23)
--- NOTE | 2018-02-15 17:46 | VASCULAR ---
PROCEDURE: 1. Abdominal aortogram and bilateral lower extremity runoff with right selective views. 2. Mid right anterior tibial artery angioplasty HISTORY: Severe PVD. Previous toe amputations. Ischemic ulcerated great toe which probes to bone. Needs right great toe amputation. PHYSICIAN(S): Leif Lyons M.D. TECHNIQUE: The relative risks and indications of the procedure were explained to the patient and consent obtained. The patient was hydrated prior to the procedure and the appropriate labs drawn. The patient was placed supine on the arteriogram table and the left groin prepped and draped in the usual sterile fashion. Conscious sedation and monitoring were provided throughout the procedure by a nurse. Via a left common femoral artery approach, a 5 [place] sheath was placed in the left groin. Through the sheath and over a guidewire, a 5 [place] flush catheter was placed in the abdominal aorta at the level of the renal arteries and a PA DSA abdominal aortogram performed. The catheter was pulled down to the aortic bifurcation and bilateral oblique DSA pelvic arteriograms performed. Overlapping bilateral lower extremity DSA arteriograms were obtained from the inguinal ligaments to the ankles. A 0.035 angled Glidewire was advanced over the bifurcation and placed in the mid right SFA. A 6 [place] 90 cm Luis sheath was placed in the distal right SFA. Heparin 5000 units IV and nitroglycerin in 250 mcg aliquots were given. The severe stenoses in the mid right anterior tibial artery were crossed with a 0.014 support wire. The mid right anterior tibial artery was dilated at 3.5 mm x 80 mm balloon. A good angiographic result was obtained. No stent was required. The sheath was removed hemostasis obtained with a Perclose device. The patient tolerated the procedure well.. FINDINGS: There are single renal arteries bilaterally which are widely patent and normal in appearance. The nephrograms are symmetric in appearance. The infrarenal abdominal aorta is widely patent without a radiographically significant stenosis. The aortic bifurcation is widely patent. The common and external iliac arteries are normal in appearance without a significant stenosis. The internal iliac arteries are patent bilaterally. There is smooth vascular calcification noted at multiple levels Right lower extremity: The right common femoral artery is patent. The right profunda femoral artery is patent. The right superficial femoral artery is patent and continuous without a radiographically significant stenosis. The right popliteal artery and trifurcation are patent. There is a critical stenosis of the mid right anterior tibial artery. This was successfully dilated at 3.5 mm balloon. There is 3 vessel runoff to the right foot. The right dorsalis pedis artery and plantar arch are patent. Left lower extremity: Left common femoral artery is patent. The left profunda femoral artery is patent. The left superficial femoral artery is patent and continuous without a radiographically significant stenosis. The left popliteal artery and trifurcation are patent.The 3 right tibial vessels are patent and continuous to the ankle IMPRESSION: 1.Successful mid right anterior tibial artery angioplasty
[2018-02-15] MEDS ORDERED: Dextrose 50% SYRINGE Inj (50 ml) IVP ONE (17:51)
[2018-02-15] MEDS ORDERED: Dextrose 50% SYRINGE Inj (50 ml) ONE (17:56)
[2018-02-15] MEDS ORDERED: POLYETHYLENE GLYCOL 3350 17 GM/Dose PACKET PO ONE (18:22)
--- NOTE | 2018-02-15 19:31 | PN ---
Copied To: Kishan Fry DPM Attending MD: Kishan Fry DPM DATE: 02/15/2018 SUBJECTIVE: A 68-year-old diabetic male, seen at bedside for continued evaluation and management of a right plantar hallux ulceration with osteomyelitis of the proximal and distal first phalanges. The patient is scheduled for cardiac catheterization later in the day and will undergo right hallux amputation 08:00 a.m. tomorrow morning. We will hold his Lovenox, his aspirin and his Plavix today until Wednesday. The patient was seen by Dr. Leif Oleary. There are no contraindications to surgery at this time. The patient's vital signs revealed temperature of 97.4, pulse rate of 43, blood pressure of 99/49, respiratory rate of 18. Laboratory findings reveal white count of 6.5, hemoglobin of 10.8, hematocrit of 33.5, platelet count of 202. His ESR is elevated at 47. MRI taken of the right foot reveals edema in the proximal and distal phalanges of the first toe, which is indicative of osteomyelitis. OBJECTIVE: Weakly palpable pedal pulses noted bilaterally. Absent pedal hair growth noted bilaterally. Lower extremity skin presents thin, shining, discolored bilaterally. The patient is unable to detect 5.07 g monofilament wire testing bilaterally. Capillary filling time is delayed on digits of both feet. Right hallux presents with a full-thickness ulceration at the plantar aspect of the proximal interphalangeal joint with exposed head of the proximal phalanx and base of the distal phalanx. The bone is clearly visible and palpable. The area is edematous and erythematous. There is no purulence. There is no malodor. However, there is serous drainage. ASSESSMENT: A 68-year-old diabetic male with right diabetic hallux ulceration with osteomyelitis of the proximal and distal phalanges. PLAN: The patient was seen and wound was cleansed with normal sterile saline and application of Betadine and a dry sterile dressing was applied. We will hold the Lovenox, aspirin and Plavix as the patient is scheduled for right hallux amputation to be done in the morning. We will keep n.p.o. after dinner. The patient has a forefoot wedge shoe to be worn postsurgically. The patient will resume all anticoagulants on Wednesday. Kishan Fry DPM
[2018-02-16] MEDS: Pantoprazole 40 mg EC Tab PO SCH (05:07)
[2018-02-16] MEDS: Sodium Chloride 0.45% 1,000 ML IV SCH ×2 (06:46→09:11)
[2018-02-16 07:14] LABS: BASO # 0.02 K/mm3 (0.0-2.0); BASO % 0.3 % (0.0-3.0); EOS # 0.3 (0.0-0.7); EOS % 4.8 % (1.5-5.0); GRAN # 4.28 (1.4-6.5); LYMPH # 1.5 (1.2-3.4); LYMPH % 22.5 % (22.0-35.0); MEAN CELL VOLUME 80.2 fl (80.0-105.0); MEAN CORPUSCULAR HEMOGLOBIN 25.3 pg (25.0-35.0); MEAN CORPUSCULAR HGB CONC 31.6 g/dl (31.0-37.0); MEAN PLATELET VOLUME 8.9 fl (7.0-11.0); MONO # 0.6 (0.1-0.6); MONO % 8.4 % (1.0-6.0); RBC 4.34 10^6/uL (3.5-6.1); RED CELL DISTRIBUTION WIDTH 16.3 % (11.5-14.5); WHITE BLOOD COUNT 6.7 10^3/ul (4.5-11.0)
--- NOTE | 2018-02-16 07:19 | CP.PCM.PN ---
<Gary Meade - Last Filed: 02/16/18 14:10> Subjective - Date & Time of Evaluation Date of Evaluation: 02/16/18 Time of Evaluation: 07:17 - Subjective Subjective: Gary Meade DO PGY1 Internal Medicine Adult [employer] Education Instructor - Hospital Progress Note Patient was seen this afternoon post procedure. No issues reported overnight; no complications reported post procedure. Patient denies any fevers post op; denies SOB/Cough/CP; has already begun moving his bowels; tolerates his diet well at this time. 12 system ROS otherwise negative. Objective - Vital Signs/Intake and Output Vital Signs (last 24 hours): Temp Pulse Resp BP Pulse Ox 98.1 F 82 20 139/66 98 02/16/18 06:00 02/16/18 06:00 02/16/18 06:00 02/16/18 06:00 02/16/18 06:00 Intake and Output: 02/16/18 02/16/18 06:59 18:59 Intake Total 1530 Output Total 1200 Balance 330 - Medications Medications: Current Medications Aspirin (Aspirin Chewable) 81 mg PO DAILY [facility] Last Admin: 02/15/18 10:22 Dose: 81 mg Atorvastatin Calcium (Lipitor) 40 mg PO HS [facility] Last Admin: 02/15/18 21:18 Dose: 40 mg Clonazepam (Klonopin) 1 mg PO BID [facility] PRN Reason: Protocol Last Admin: 02/15/18 17:59 Dose: 1 mg Clopidogrel Bisulfate (Plavix) 75 mg PO DAILY [facility] Last Admin: 02/15/18 10:23 Dose: 75 mg Docusate Sodium (Colace) 100 mg PO BID [facility] Last Admin: 02/15/18 17:59 Dose: 100 mg Enoxaparin Sodium (Lovenox) 40 mg SC DAILY [facility] PRN Reason: Protocol Last Admin: 02/15/18 10:23 Dose: 40 mg Vancomycin HCl (Vancomycin 1gm) 1 gm in 250 mls @ 167 mls/hr IVPB Q12 [facility] PRN Reason: Protocol Last Admin: 02/15/18 21:18 Dose: 167 mls/hr Sodium Chloride (Sodium Chloride 0.45%) 1,000 mls @ 80 mls/hr IV .[id number] [facility] Stop: 02/16/18 12:00 Last Admin: 02/16/18 06:46 Dose: Not Given Insulin Human Regular (Humulin R Low) 0 units SC ACHS [facility] PRN Reason: Protocol Last Admin: 02/15/18 21:37 Dose: Not Given Methadone HCl (Methadone) 30 mg PO Q12 [facility] Last Admin: 02/15/18 21:18 Dose: 30 mg Ondansetron HCl (Zofran Inj) 4 mg IVP ONCE PRN PRN Reason: Nausea/Vomiting Pantoprazole Sodium (Protonix Ec Tab) 40 mg PO 0600 [facility] Last Admin: 02/16/18 05:07 Dose: Not Given Ramipril (Altace) 1.25 mg PO DAILY [facility] Last Admin: 02/15/18 10:22 Dose: 1.25 mg - Labs Labs: 02/15/18 06:45 02/15/18 06:45 PT 13.7 SECONDS (9.4-12.5) H 02/11/18 16:30 INR 1.20 02/11/18 16:30 APTT 33.5 Seconds (25.1-36.5) 02/11/18 16:30 Physical - Constitutional Appears: Well, Non-toxic - Head Exam Head Exam: ATRAUMATIC, NORMOCEPHALIC - Eye Exam Eye Exam: EOMI, PERRL. absent: Scleral icterus - ENT Exam ENT Exam: Mucous Membranes Moist, Normal Exam - Respiratory Exam Respiratory Exam: Clear to Ausculation Bilateral, NORMAL BREATHING PATTERN. absent: Rales, Rhonchi, Wheezes, Respiratory Distress - Cardiovascular Exam Cardiovascular Exam: REGULAR RHYTHM, +S1, +S2. absent: Murmur Additional comments: Felix overnight on tele - GI/Abdominal Exam GI & Abdominal Exam: Soft. absent: Tenderness - Extremities Exam Additional comments: DP and PT pulses not palpable on the R. 1+ DP pulses palpated on the L foot, L PT pulse not palpable. Extremities: R leg: venous stasis dermatitis present to the level of the tibial tuberosity. R Charcot foot deformity. Non-pitting edema present over dorsum of R foot. 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 Significant bony deformity and contracture of the distal R great toe at the DIP. Ulcer of the plantar aspect of R toe, 2.3 cm in longest dimension, base composed of granulation tissue. Wound not probed on exam. - Back Exam Back Exam: absent: CVA tenderness (L), CVA tenderness (R) Additional comments: Upper back examined. Midline scar present T3 through T7. Bandage in place over T6 midline. Some purulent drainage seen through bandage. No signs of lymphangitis or cellulitis. 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 Osteomyelitis in setting of chronic neuropathic wound of R 1st toe s/p R foot partial first ray amputation - Osteomyelitis suggested on XR R foot and MRI R foot. - Doppler US demonstrated limited exam 2/2 to heavy calcification and stenosis, demonstrated occlusive disease of R tibial artery and R superficial femoral artery. - Continue Zosyn and vancomycin per ID recommendations - Wound culture + for MRSA; susceptible to clindamycin, gentamicin, linezolid, tetracycline, Bactrim, vancomycin - Mid right anterior tibial artery angio plasty performed 02/15 - Patient is status post partial first ray amputation of the R foot today; no complications durring procedure - Resume anti-platelets 02/18 - Plan for pt in WBAT forefoot off-loading shoe. Follow-up PT recommendations Positive blood culture 07/06 @ 48 hrs - Blood cultures obtained, return significant for MRSA on first day, return negative on second day. Most likely positive culture was contaminant. Still no fever or leukocytosis. Septicemia unlikely at this time. Continue to follow blood cultures. - Repeat blood culture was negative @ 48 hours - Echo obtained per ID recommendations in setting of positive blood cultures returned with no findings significant with valvular vegetations or signs of endocarditis. - ID consult (Dr. Lucas): stopped IV Zosyn (4 days total) and Continue IV vancomycin day 5 per recommendations Chronic abscess back - Abscess since 08/2015 associated with old surgical incision site demonstrated on CT 1 x 0.5 cm - Neurosurgery consulted, spoke with Dr. Hoff. Pt has not followed up with neurosurgery as outpatient. First evaluated for this problem 08/2015. - ID recommends possible tagged WBC scan to evaluate - Appreciate ID reccs regarding abx therapy/ duration moving forward Asymptomatic sinus bradycardia - Pt continues to have asymptomatic sinus bradycardia, HR in 50s on monitor during sleep. This corresponds to pts baseline. ECG from 02/13/18 reviewed, demonstrates Sinus bradycardia at 146, RBBB unchanged from priors. - Echo reveals no vegetations, mild concentric LVH, EF 59%. - Continue holding pts metoprolol for now. Continue to monitor on tele - Cardiology consult requested for assessment of cardiac risk in anticipation for surgery given complex cardiac history (Dr. Oleary). - No cardiac issues which would limit necessity for surgery at this time Hx CAD s/p CABG x3, HTN, HLD - ASA81/ PLAVIX are on hold until 02/16 - C/w ramipril - Holding metoprolol due to bradycardia Diabetes type 2 ISS Heart healthy diet Hx chronic pain on methadone Methadone 30 BID mg prescribed by Dr. Allen Kendall 100 bid for constipation, Miralax PRN for constipation Dispo: Patient to underwent R 1st Ray amputation w/ Podiatry on 8 AM Pt. seen examined, and discussed at length with attending physician Dr. Emerita Meade DO PGY1 Internal Medicine - Pager [phone] <Matteo Felder - Last Filed: 02/16/18 14:43> Objective - Vital Signs/Intake and Output Vital Signs (last 24 hours): Temp Pulse Resp BP Pulse Ox 98.7 F 66 19 103/58 L 97 02/16/18 11:47 02/16/18 11:47 02/16/18 11:47 02/16/18 11:47 02/16/18 10:24 Intake and Output: 02/16/18 02/16/18 06:59 18:59 Intake Total 1530 75 Output Total 1200 Balance 330 75 - Medications Medications: Current Medications Acetaminophen (Tylenol 325mg Tab) 650 mg PO Q6H PRN PRN Reason: Pain, Mild (1-3) Aspirin (Aspirin Chewable) 81 mg PO DAILY [facility] Last Admin: 02/15/18 10:22 Dose: 81 mg Atorvastatin Calcium (Lipitor) 40 mg PO HS [facility] Last Admin: 02/15/18 21:18 Dose: 40 mg Clonazepam (Klonopin) 1 mg PO BID [facility] PRN Reason: Protocol Last Admin: 02/16/18 11:00 Dose: 1 mg Clopidogrel Bisulfate (Plavix) 75 mg PO DAILY [facility] Last Admin: 02/15/18 10:23 Dose: 75 mg Docusate Sodium (Colace) 100 mg PO BID [facility] Last Admin: 02/16/18 11:00 Dose: 100 mg Enoxaparin Sodium (Lovenox) 40 mg SC DAILY [facility] PRN Reason: Protocol Last Admin: 02/15/18 10:23 Dose: 40 mg Vancomycin HCl (Vancomycin 1gm) 1 gm in 250 mls @ 167 mls/hr IVPB Q12 [facility] PRN Reason: Protocol Last Admin: 02/16/18 11:02 Dose: 167 mls/hr Insulin Human Regular (Humulin R Low) 0 units SC ACHS [facility] PRN Reason: Protocol Last Admin: 02/16/18 14:02 Dose: Not Given Methadone HCl (Methadone) 30 mg PO Q12 [facility] Last Admin: 02/16/18 11:00 Dose: 30 mg Metoclopramide HCl (Reglan) 10 mg IV ONCE PRN PRN Reason: Nausea/Vomiting Ondansetron HCl (Zofran Inj) 4 mg IVP ONCE PRN PRN Reason: Nausea/Vomiting Oxycodone/Acetaminophen (Percocet 5/325 Mg Tab) 1 tab PO Q4H PRN PRN Reason: Pain, moderate (4-7) Stop: 02/19/18 09:26 Oxycodone/Acetaminophen (Percocet 5/325 Mg Tab) 2 tab PO Q4H PRN PRN Reason: Pain, severe (8-10) Stop: 02/19/18 09:26 Pantoprazole Sodium (Protonix Ec Tab) 40 mg PO 0600 [facility] Last Admin: 02/16/18 05:07 Dose: Not Given Ramipril (Altace) 1.25 mg PO DAILY [facility] Last Admin: 02/16/18 11:00 Dose: 1.25 mg - Labs Labs: 02/16/18 07:00 02/16/18 07:00 PT 13.1 SECONDS (9.4-12.5) H 02/16/18 07:00 INR 1.14 02/16/18 07:00 APTT 33.5 Seconds (25.1-36.5) 02/11/18 16:30 Attending/Attestation - Attestation I have personally seen and examined this patient.: Yes I have fully participated in the care of the patient.: Yes I have reviewed all pertinent clinical information, including history, physical exam and plan: Yes Notes (Text): 02/16/18 14:40 68 year old male with past medical history of diabetes, dyslipidemia, CAD s/p CABG, COPD, osteomyelitis of right 4th/5th metatarsals and history of thoracic kyphoplasty with internal fixation who presented with right foot diabetic toe ulcer. Xray and MRI of foot were suggestive of osteomyeliti. Wound culture and blood culture grew MRSA. Repeat blood culture is negative to date. He is on iv antibiotics. ID and podiatry are following. He is s/p right 1st ray amputation today. Arterial doppler was reviewed which showed right SFA and tibial artery occlusive disease. IR evaluation was appreciated and patient s/p angioplasty yesterday. CT and MRI spine was also reviewed. Neurosurgery evaluation was appreciated. Patient is on iv antibiotics as above. Cardiology evaluation was appreciated for bradycardia. Metoprolol is on hold and heart rate has improved. Echocardiogram was reviewed. Matteo Felder MD Hospitalist.
[2018-02-16 07:21] LABS: INR 1.14; PROTHROMBIN TIME 13.1 SECONDS (9.4-12.5)
[2018-02-16] MEDS ORDERED: Lidocaine PF 2% (5 ml) Inj (For Cardiac Arrhy) ONE ×2 (07:25→08:13)
[2018-02-16 07:38] LABS: ALB/GLOB RATIO 0.8 (1.1-1.8); ALBUMIN 3.1 g/dL (3.0-4.8); ALT/SGPT 34 U/L (7-56); AST/SGOT 34 U/L (17-59); BLOOD UREA NITROGEN 12 mg/dL (7-21); GFR AFRICAN-AMERICAN > 60; GFR NON-AFRICAN AMERICAN > 60
[2018-02-16] MEDS ORDERED: Bupivacaine 0.25% Inj(30mL) ONE (07:43)
[2018-02-16] MEDS ORDERED: Propofol 10 mg/ml Inj (20 ML) ONE (08:13)
[2018-02-16] MEDS ORDERED: Midazolam 2 MG/2 ML VIAL ONE (08:13)
[2018-02-16] MEDS ORDERED: Lidocaine 2% Inj (20ml) IJ ONE (08:25)
[2018-02-16] MEDS ORDERED: Bupivacaine 0.25% Inj(30mL) IJ ONE (08:25)
[2018-02-16] MEDS ORDERED: ePHEDrine 50 mg/ml Inj ONE (08:42)
[2018-02-16] MEDS: Insulin Reg-LOW-Coverage SC SCH ×4 (09:10→22:11)
[2018-02-16] MEDS: Vancomycin 1gm in NS 250ml 1 GM/250 ML BAG IVPB SCH ×3 (09:11→21:38)
[2018-02-16] MEDS ORDERED: Oxycodone/Acetaminophen 5/325 mg Tab PO PRN ×2 (09:25)
[2018-02-16] MEDS ORDERED: HYDROmorphone 0.5 mg/0.5 ml ISec IVP PRN (09:28)
[2018-02-16] MEDS ORDERED: Sodium Chloride 0.9% 1,000 ML IV SCH (09:30)
--- NOTE | 2018-02-16 09:31 | PCM.SURG1 ---
Surgeon's Initial Post Op Note - Surgeon's Notes Surgeon: Dr. Kishan Fry DPM Spinneret Person: Dr. Thien Meade DPM PGY-2; Dr. Cassi Portillo DPM PGY-1 Type of Anesthesia: General LMA, Local Anesthesia Administered By: Dr. Jonathan ADAMS Pre-Operative Diagnosis: Right hallux osteomyelitis Operative Findings: See dictation. M: 4-0 vicryl; 3-0 nylone. I: 15 cc of 1:1 2% lidocaine plain:0.25% marcaine plain Post-Operative Diagnosis: Right hallux osteomyelitis Operation Performed: Right foot partial first ray amputation Specimen/Specimens Removed: Hallux. Proximal margin: 1st metatarsal head. Wound culture post irrigation Estimated Blood Loss: EBL {In ML}: 5 Blood Products Given: N/A Drains Used: No Drains Post-Op Condition: Good Date of Surgery/Procedure: 02/16/18 Time of Surgery/Procedure: 09:31
--- NOTE | 2018-02-16 10:28 | PN ---
Copied To: Leif Oleary MD Attending MD: Leif Oleary MD DATE: 02/16/2018 CARDIOLOGY FOLLOWUP SUBJECTIVE: The patient is asymptomatic. PHYSICAL EXAMINATION: VITAL SIGNS: Blood pressure is 139/66, heart rate is in the 80s. Physical exam is unchanged. LABORATORY DATA: Hemoglobin is 11. Chemistries, BUN and creatinine unremarkable. IMPRESSION 1. Foot ulcer. 2. Moderate pulmonary hypertension. 3. Peripheral vascular disease. 4. Diabetes mellitus. 5. Bradycardia which is better off beta blockers. The patient is for his procedure today. Leif Oleary MD
--- NOTE | 2018-02-16 12:28 | RAD ---
Date of service: 02/16/2018 PROCEDURE: Right Foot Radiographs. HISTORY: s/p right foot surgery COMPARISON: 02/11/2018. FINDINGS: BONES: Postoperative findings s/p resection of the 1st digit and distal metatarsal. JOINTS: Normal. SOFT TISSUES: Soft tissue swelling, postoperative changes at the surgical site. OTHER FINDINGS: None. IMPRESSION: Satisfactory postoperative status.
[2018-02-17] MEDS: Pantoprazole 40 mg EC Tab PO SCH (06:13)
[2018-02-17 06:26] LABS: BASO # 0.02 K/mm3 (0.0-2.0); BASO % 0.3 % (0.0-3.0); EOS # 0.4 (0.0-0.7); EOS % 4.7 % (1.5-5.0); GRAN # 5.39 (1.4-6.5); GRAN % 68.4 % (50.0-68.0); HEMOGLOBIN 10.2 g/dL (14.0-18.0); LYMPH # 1.4 (1.2-3.4); LYMPH % 17.3 % (22.0-35.0); MEAN CELL VOLUME 79.2 fl (80.0-105.0); MEAN CORPUSCULAR HEMOGLOBIN 25.2 pg (25.0-35.0); MEAN CORPUSCULAR HGB CONC 31.9 g/dl (31.0-37.0); MEAN PLATELET VOLUME 9.4 fl (7.0-11.0); MONO # 0.7 (0.1-0.6); MONO % 9.3 % (1.0-6.0); RBC 4.04 10^6/uL (3.5-6.1); RED CELL DISTRIBUTION WIDTH 16.3 % (11.5-14.5); WHITE BLOOD COUNT 7.9 10^3/ul (4.5-11.0)
[2018-02-17 07:15] LABS: ALB/GLOB RATIO 0.8 (1.1-1.8); ALBUMIN 2.9 g/dL (3.0-4.8); ALT/SGPT 27 U/L (7-56); AST/SGOT 33 U/L (17-59); BLOOD UREA NITROGEN 10 mg/dL (7-21); CALCIUM 8.4 mg/dL (8.4-10.5); GFR AFRICAN-AMERICAN > 60; GFR NON-AFRICAN AMERICAN > 60
--- NOTE | 2018-02-17 08:05 | CP.PCM.PN ---
<Gary Meade - Last Filed: 02/17/18 20:16> Subjective - Date & Time of Evaluation Date of Evaluation: 02/17/18 Time of Evaluation: 10:21 - Subjective Subjective: Gary Meade DO PGY1 Internal Medicine Certified Phlebotomist - Hospital Progress Note Pt is Post-op day 1. States that the procedure went well. He denies fevers, SOB , cough, chest pain, diarrhea, leg pain. Moved bowels only once. He is urinating well and reports that he has a good appetite. No other issues reported at this time. Objective - Vital Signs/Intake and Output Vital Signs (last 24 hours): Temp Pulse Resp BP Pulse Ox 97.8 F 52 L 20 145/71 98 02/16/18 16:38 02/17/18 06:00 02/16/18 16:38 02/16/18 16:38 02/16/18 16:38 Intake and Output: 02/17/18 02/17/18 06:59 18:59 Intake Total 1000 Balance 1000 - Medications Medications: Current Medications Acetaminophen (Tylenol 325mg Tab) 650 mg PO Q6H PRN PRN Reason: Pain, Mild (1-3) Aspirin (Aspirin Chewable) 81 mg PO DAILY [facility] Last Admin: 02/15/18 10:22 Dose: 81 mg Atorvastatin Calcium (Lipitor) 40 mg PO HS [facility] Last Admin: 02/16/18 21:37 Dose: 40 mg Clonazepam (Klonopin) 1 mg PO BID EZE PRN Reason: Protocol Last Admin: 02/16/18 18:01 Dose: 1 mg Clopidogrel Bisulfate (Plavix) 75 mg PO DAILY [facility] Last Admin: 02/15/18 10:23 Dose: 75 mg Docusate Sodium (Colace) 100 mg PO BID [facility] Last Admin: 02/16/18 18:02 Dose: 100 mg Enoxaparin Sodium (Lovenox) 40 mg SC DAILY [facility]ZE PRN Reason: Protocol Last Admin: 02/15/18 10:23 Dose: 40 mg Vancomycin HCl (Vancomycin 1gm) 1 gm in 250 mls @ 167 mls/hr IVPB Q12 [facility]ZE PRN Reason: Protocol Last Admin: 02/16/18 21:38 Dose: 167 mls/hr Insulin Human Regular (Humulin R Low) 0 units SC ACHS EZE PRN Reason: Protocol Last Admin: 02/16/18 22:11 Dose: Not Given Methadone HCl (Methadone) 30 mg PO Q12 [facility] Last Admin: 02/16/18 21:37 Dose: 30 mg Metoclopramide HCl (Reglan) 10 mg IV ONCE PRN PRN Reason: Nausea/Vomiting Ondansetron HCl (Zofran Inj) 4 mg IVP ONCE PRN PRN Reason: Nausea/Vomiting Oxycodone/Acetaminophen (Percocet 5/325 Mg Tab) 1 tab PO Q4H PRN PRN Reason: Pain, moderate (4-7) Stop: 02/19/18 09:26 Oxycodone/Acetaminophen (Percocet 5/325 Mg Tab) 2 tab PO Q4H PRN PRN Reason: Pain, severe (8-10) Stop: 02/19/18 09:26 Pantoprazole Sodium (Protonix Ec Tab) 40 mg PO 0600 [facility] Last Admin: 02/17/18 06:13 Dose: 40 mg Ramipril (Altace) 1.25 mg PO DAILY [facility] Last Admin: 02/16/18 11:00 Dose: 1.25 mg - Labs Labs: 02/17/18 05:30 02/17/18 05:30 PT 13.1 SECONDS (9.4-12.5) H 02/16/18 07:00 INR 1.14 02/16/18 07:00 APTT 33.5 Seconds (25.1-36.5) 02/11/18 16:30 Physical - Constitutional Appears: Well, Non-toxic - Head Exam Head Exam: ATRAUMATIC, NORMOCEPHALIC - Eye Exam Eye Exam: EOMI, PERRL. absent: Scleral icterus - ENT Exam ENT Exam: Mucous Membranes Moist, Normal Exam - Respiratory Exam Respiratory Exam: Clear to Ausculation Bilateral, NORMAL BREATHING PATTERN. absent: Rales, Rhonchi, Wheezes, Respiratory Distress - Cardiovascular Exam Cardiovascular Exam: REGULAR RHYTHM, +S1, +S2. absent: Murmur Additional comments: Felix overnight on tele - GI/Abdominal Exam GI & Abdominal Exam: Soft. absent: Tenderness - Extremities Exam Additional comments: BL DP/TP diminished bilaterally R foot bandaged; dressing CDI; elevated on pillow - Back Exam Back Exam: absent: CVA tenderness (L), CVA tenderness (R) Additional comments: Upper back examined. Midline scar present T3 through T7. Bandage in place over T6 midline. Some purulent drainage seen through bandage. No signs of lymphangitis or cellulitis. 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 Osteomyelitis in setting of chronic neuropathic wound of R 1st toe s/p R foot partial first ray amputation - Osteomyelitis suggested on XR R foot and MRI R foot. - Doppler US demonstrated limited exam 2/2 to heavy calcification and stenosis, demonstrated occlusive disease of R tibial artery and R superficial femoral artery. - C/w vancomycin per ID recommendations; started on 02/11 - Wound culture + for MRSA; susceptible to clindamycin, gentamicin, linezolid, tetracycline, Bactrim, vancomycin - Mid right anterior tibial artery angio plasty performed 02/15 - Patient is status post partial first ray amputation of the R foot today; no complications durring procedure - Pathology/ Culture from R foot - No growth within 24H - Per Podiatry: Patient is to be kept off weightbearing at all time to prevent dehisence of his distal ampuation. - Resume anti-platelets 02/18 - Further PT/OT Eval - Podiatry following, appreciate reccs Positive blood culture 1/2 @ 48 hrs - Blood culture 1/2 + for MSA on admission; Repeat blood cx negative @ 4 days - Repeat blood culture was negative @ 48 hours - Echo obtained per ID recommendations in setting of positive blood cultures returned with no findings significant with valvular vegetations or signs of endocarditis. - ID consult (Dr. Lucas): stopped IV Zosyn (4 days total) and Continue IV vancomycin (Day#6) Chronic Back Abscess - Abscess since 08/2015 associated with old surgical incision site demonstrated on CT 1 x 0.5 cm - Neurosurgery consulted, spoke with Dr. Hoff. Pt has not followed up with neurosurgery as outpatient. First evaluated for this problem 08/2015. - Appreciate ID reccs regarding abx therapy/ duration moving forward Asymptomatic sinus bradycardia - Pt continues to have asymptomatic sinus bradycardia, HR in 50s on monitor during sleep. This corresponds to pts baseline. ECG from 02/13/18 reviewed, demonstrates Sinus bradycardia at 146, RBBB unchanged from priors. - Echo reveals no vegetations, mild concentric LVH, EF 59%. - Continue holding pts metoprolol for now - Cardiology DC'd tele - Cardiology consult requested for assessment of cardiac risk in anticipation for surgery given complex cardiac history (Dr. Oleary). - No cardiac issues which would limit necessity for surgery at this time Hx CAD s/p CABG x3, HTN, HLD - ASA81/ PLAVIX are on hold until 02/16 - C/w Ramipril - Holding metoprolol due to bradycardia Diabetes type 2 ISS Heart healthy diet Hx chronic pain on methadone Methadone 30 BID mg prescribed by Dr. Villa Colace 100 bid for constipation, Miralax PRN for constipation Dispo: Patient to underwent R 1st Ray amputation w/ Podiatry on 02/16 AM Pt. seen examined, and discussed at length with attending physician Dr. Emerita Meade DO PGY1 Internal Medicine - Pager [phone] <Matteo Felder - Last Filed: 02/18/18 06:58> Objective - Vital Signs/Intake and Output Vital Signs (last 24 hours): Temp Pulse Resp BP Pulse Ox 98.5 F 58 L 19 118/64 94 L 02/17/18 16:46 02/17/18 16:46 02/17/18 16:46 02/17/18 16:46 02/17/18 16:46 Intake and Output: 02/17/18 02/18/18 18:59 06:59 Intake Total 1150 Output Total 700 Balance 450 - Medications Medications: Current Medications Acetaminophen (Tylenol 325mg Tab) 650 mg PO Q6H PRN PRN Reason: Pain, Mild (1-3) Aspirin (Aspirin Chewable) 81 mg PO DAILY [facility] Last Admin: 02/15/18 10:22 Dose: 81 mg Atorvastatin Calcium (Lipitor) 40 mg PO HS [facility] Last Admin: 02/17/18 21:34 Dose: 40 mg Clonazepam (Klonopin) 1 mg PO BID [facility] PRN Reason: Protocol Last Admin: 02/17/18 17:12 Dose: 1 mg Clopidogrel Bisulfate (Plavix) 75 mg PO DAILY [facility] Last Admin: 02/15/18 10:23 Dose: 75 mg Docusate Sodium (Colace) 100 mg PO BID [facility] Last Admin: 02/17/18 17:11 Dose: 100 mg Enoxaparin Sodium (Lovenox) 40 mg SC DAILY [facility] PRN Reason: Protocol Last Admin: 02/15/18 10:23 Dose: 40 mg Vancomycin HCl (Vancomycin 1gm) 1 gm in 250 mls @ 167 mls/hr IVPB Q12 [facility] PRN Reason: Protocol Last Admin: 02/17/18 21:34 Dose: 167 mls/hr Insulin Human Regular (Humulin R Low) 0 units SC ACHS EZE PRN Reason: Protocol Last Admin: 02/17/18 23:16 Dose: Not Given Methadone HCl (Methadone) 30 mg PO Q12 [facility] Last Admin: 02/17/18 21:33 Dose: 30 mg Ondansetron HCl (Zofran Inj) 4 mg IVP ONCE PRN PRN Reason: Nausea/Vomiting Oxycodone/Acetaminophen (Percocet 5/325 Mg Tab) 1 tab PO Q4H PRN PRN Reason: Pain, moderate (4-7) Stop: 02/19/18 09:26 Oxycodone/Acetaminophen (Percocet 5/325 Mg Tab) 2 tab PO Q4H PRN PRN Reason: Pain, severe (8-10) Stop: 02/19/18 09:26 Pantoprazole Sodium (Protonix Ec Tab) 40 mg PO 0600 [facility] Last Admin: 02/18/18 06:14 Dose: Not Given Ramipril (Altace) 1.25 mg PO DAILY [facility] Last Admin: 02/17/18 09:20 Dose: 1.25 mg - Labs Labs: 02/17/18 05:30 02/18/18 05:30 PT 13.1 SECONDS (9.4-12.5) H 02/16/18 07:00 INR 1.14 02/16/18 07:00 APTT 33.5 Seconds (25.1-36.5) 02/11/18 16:30 Attending/Attestation - Attestation I have personally seen and examined this patient.: Yes I have fully participated in the care of the patient.: Yes I have reviewed all pertinent clinical information, including history, physical exam and plan: Yes Notes (Text): 02/17/18 68 year old male with past medical history of diabetes, dyslipidemia, CAD s/p CABG, COPD, osteomyelitis of right 4th/5th metatarsals and history of thoracic kyphoplasty with internal fixation who presented with right foot diabetic toe ulcer. Xray and MRI of foot were suggestive of osteomyelitis. Wound culture and blood culture grew MRSA. Repeat blood culture is negative to date. He is on iv antibiotics. ID and podiatry are following. He is s/p right 1st ray amputation yesterday. Pending operative path and culture. May need 4-6 weeks of antibiotics as per ID. Arterial doppler was reviewed which showed right SFA and tibial artery occlusive disease. IR evaluation was appreciated and patient s/p angioplasty. CT and MRI spine was also reviewed. Neurosurgery evaluation was appreciated. Patient is on iv antibiotics as above. Cardiology evaluation was appreciated for bradycardia. Metoprolol is on hold and heart rate has improved. Echocardiogram was reviewed. Matteo Felder MD Hospitalist.
--- NOTE | 2018-02-17 08:12 | OP ---
Copied To: Kishan Fry DPM Attending MD: Kishan Fry DPM PROCEDURE DATE: 02/16/2018 INDICATIONS: A 68-year-old noncompliant diabetic male, presented to the emergency room on 02/11/2018 with chief complaint of a painful diabetic right great toe ulceration, which was emitting pus and had become red, hot, swollen. The patient is neuropathic. It did not feel the ulceration coming on. The patient was noncompliant with followups with his sustainment logistics analyst, Dr. Giana Rich. Upon admission, MRI testing confirmed osteomyelitis of the proximal and distal right first phalanges. After much discussion, the patient agreed to have right hallux amputation performed with distal resection of the first metatarsal. Consent was signed and most common postoperative complications were explained in detail. All his questions were answered. Following is the procedure in detail. DESCRIPTION OF PROCEDURE: The patient was brought into the operating room in the supine position on his hospital bed and transferred to the operating room table in the supine position. Following IV sedation, local anesthetic block IV sedation and general anesthesia as well as local anesthetic block was given in circumferential fashion along the first metatarsophalangeal joint. Attention was directed to the right hallux where there was noted to be a large full-thickness wound plantarly with exposed head of the proximal phalanx as well as the base of the distal phalanx. Using a #15-blade, a racquet-type incision was made on dorsal aspect of the first metatarsophalangeal joint and encompassing the entire hallux. The incision was deepened and all vital and neural structures were retracted. There was noted to be minimal bleeding at this time. Incision was deepened down to the capsule of the first metatarsophalangeal joint and the hallux was excised in toto and removed from the operative field. At this point, it was noted that the metatarsal head was present and visible with minimal cartilage and it was noted to be soft and spongy. Next, utilizing a sagittal saw, metatarsal head was resected with the most distal part dorsal. The resected head was then removed from the operative field. Utilizing a pulse lavage, approximately 200 mL of sterile saline was used to flush the wound and culture was taken and submitted for sensitivities. There were 3 specimens labelled for pathology, one being the distal head of the first metatarsal to ascertain whether osteomyelitis was present and the other being the distal and proximal phalanges. The wound was once again flushed with copious amounts of normal sterile saline using 4-0 Vicryl. The surgical site was subcutaneously closed and then using 3-0 nylon, the incision site was closed with horizontal and simple sutures. The operative site was covered with Betadine-soaked Adaptic, sterile 4x4's, sterile abdominal pad, sterile Kerlix and a light Coban dressing was applied. The patient was transported from the operating room to the recovery room with all vital signs stable. Lovenox, aspirin and Plavix were held. He will continue Wednesday morning. There was noted to be some bleeding at the end of the procedure. X-rays will be ordered and the patient will be brought back to his room. All preop medicines ordered. The patient will be followed in the a.m. He is to be kept off weightbearing at all times for the next 48 hours with no bathroom privileges. Kishan Fry DPM
[2018-02-17] MEDS: Insulin Reg-LOW-Coverage SC SCH ×4 (09:21→23:16)
[2018-02-17] MEDS: Vancomycin 1gm in NS 250ml 1 GM/250 ML BAG IVPB SCH ×2 (09:23→21:34)
--- NOTE | 2018-02-17 11:50 | PN ---
Copied To: Kishan Fry DPM Attending MD: Kishan Fry DPM DATE: 02/17/2018 SUBJECTIVE: A 68-year-old diabetic male seen status post A1 right partial first ray resection. The patient is offering no complaints, has been afebrile and has been off weightbearing as directed. VITAL SIGNS: Reveal temperature of 98.1, pulse rate of 56, blood pressure of 136/64, respiratory rate of 20. LABORATORY FINDINGS: Reveal a white count of 7.9, hematocrit of 30, hemoglobin of 10.2, platelet count of 167. Microbiology report taken in the operating room reveals no polymorphonuclear white blood cells and no organisms seen preliminarily. We are waiting pathology report on resected first metatarsal head bone as well as distal right first phalanges. OBJECTIVE: Right foot was examined. Incision site presents with sutures well coapted. There is noted to be some bloody drainage on the bandage. There is noted to be no purulence. There is noted to be no dehiscence. The wound is slightly edematous and erythematous but within normal limits post-surgically. No signs of ascending cellulitis. All sutures are intact. ASSESSMENT: Status post A1 partial first ray resection on the right foot. PLAN: The patient was examined. The surgical site was examined, cleansed with Betadine, sterile Adaptic was applied along with a dry sterile dressing. We are awaiting pathology report from the distal metatarsal head to ascertain whether all the osteomyelitis has been eradicated and whether p.o. or IV antibiotics will be needed upon discharge. The patient will be kept off weightbearing at all times with no bathroom privileges until further notice to prevent dehiscence of his distal amputation. The patient was told to elevate his foot when in bed. We will resume anticoagulants tomorrow. The patient will be seen and followed daily. Kishan Fry DPM
--- NOTE | 2018-02-17 11:56 | PN ---
Copied To: Leif Oleary MD Attending MD: Leif Oleary MD DATE: 02/17/2018 SUBJECTIVE: The patient is without chest pain, without shortness of breath. PHYSICAL EXAMINATION: VITAL SIGNS: Blood pressure is 136/64, heart rate is in the 60s, normal sinus rhythm. NECK: Negative JVD. LUNGS: Without rales. HEART: Reveal S1, S2. EXTREMITIES: Without edema. DATA: Hemoglobin is 10.2. Chemistries: BUN and creatinine unremarkable. Glucose is 152. IMPRESSION: 1. Sepsis from foot ulcer. 2. Diabetes mellitus. 3. Chronic obstructive pulmonary disease. 4. Stable angina. 5. Pulmonary hypertension. Given these findings, the patient's cardiac status has been stable. There are no arrhythmias noted. We will discontinue Telemetry today. Leif Oleary MD
--- NOTE | 2018-02-17 16:58 | PN ---
Copied To: Roel English MD Attending MD: Roel English MD DATE: 02/17/2018 SUBJECTIVE: The patient is in bed. The patient is seen earlier today. No fevers. No chills. PHYSICAL EXAMINATION: VITAL SIGNS: Temperature is 98, blood pressure is 130/60, respiratory rate of 18. HEENT: Unremarkable. NECK: Supple. LUNGS: Have decreased breath sounds. HEART: Normal S1, S2. ABDOMINAL: Soft, nontender. LABORATORY EXAMINATION: Reveals a white count of 7.9, hemoglobin of 10, platelets of 167. Coagulation is noted with a BUN of 10, creatinine of 0.6. Microbiology reveals the blood cultures are positive MRSA. The toe culture is positive MRSA. ASSESSMENT AND PLAN: A 68-year-old male with right foot infected ulcer and a fifth metatarsal amputation and previous osteomyelitis with a history of previous laminectomy and hardware placement with methicillin-resistant Staphylococcus aureus bacteremia and osteomyelitis on vancomycin. Will need prolonged vancomycin therapy for bacteremia and the osteomyelitis. Review of orders reveals the patient's vancomycin to be active. He should have a CBC, SMA-18, sed rate, , C-reactive protein and vancomycin trough level once weekly. Today is day #5 of vancomycin and will need at least 4-6 weeks of therapy. Roel English MD : 02/17/2018 16:32:06
[2018-02-18] MEDS: Pantoprazole 40 mg EC Tab PO SCH (06:14)
[2018-02-18 06:28] LABS: BASO # 0.02 K/mm3 (0.0-2.0); BASO % 0.3 % (0.0-3.0); EOS # 0.4 (0.0-0.7); EOS % 5.4 % (1.5-5.0); GRAN # 4.82 (1.4-6.5); GRAN % 62.1 % (50.0-68.0); HEMOGLOBIN 10.5 g/dL (14.0-18.0); LYMPH # 1.7 (1.2-3.4); LYMPH % 22.1 % (22.0-35.0); MEAN CELL VOLUME 79.7 fl (80.0-105.0); MEAN CORPUSCULAR HEMOGLOBIN 26.6 pg (25.0-35.0); MEAN CORPUSCULAR HGB CONC 33.4 g/dl (31.0-37.0); MEAN PLATELET VOLUME 9.1 fl (7.0-11.0); MONO # 0.8 (0.1-0.6); MONO % 10.1 % (1.0-6.0); RBC 3.94 10^6/uL (3.5-6.1); RED CELL DISTRIBUTION WIDTH 16.5 % (11.5-14.5); WHITE BLOOD COUNT 7.8 10^3/ul (4.5-11.0)
[2018-02-18 06:40] LABS: ALB/GLOB RATIO 0.8 (1.1-1.8); ALT/SGPT 30 U/L (7-56); AST/SGOT 38 U/L (17-59); BLOOD UREA NITROGEN 12 mg/dL (7-21); CALCIUM 8.8 mg/dL (8.4-10.5); GFR AFRICAN-AMERICAN > 60; GFR NON-AFRICAN AMERICAN > 60
[2018-02-18] MEDS: Insulin Reg-LOW-Coverage SC SCH ×3 (08:05→16:46)
[2018-02-18] MEDS: Vancomycin 1gm in NS 250ml 1 GM/250 ML BAG IVPB SCH (10:21)
[2018-02-18] MEDS: Enoxaparin 40 mg Syringe SC SCH (10:21)
--- NOTE | 2018-02-18 13:49 | CP.PCM.PN ---
<Sheri Alvarado - Last Filed: 02/18/18 13:49> Subjective - Date & Time of Evaluation Date of Evaluation: 02/18/18 Time of Evaluation: 10:00 - Subjective Subjective: PGY3 Infectious disease progress note for Dr. Lucas's service Patient seen and examined at bedside, no acute distress. Patient under went amputation of toes POD 2. Patient is doing well, report discomfort in his right foot. He is tolerating diet. Patient denies fever, chills, abd pain, chest pain , sob, dysuria, N/V. Objective - Vital Signs/Intake and Output Vital Signs (last 24 hours): Temp Pulse Resp BP Pulse Ox 97.5 F L 45 L 20 119/60 95 02/18/18 08:32 02/18/18 08:32 02/18/18 08:32 02/18/18 10:19 02/18/18 08:32 Intake and Output: 02/18/18 02/18/18 06:59 18:59 Intake Total 490 Output Total 1700 Balance -1210 - Medications Medications: Current Medications Acetaminophen (Tylenol 325mg Tab) 650 mg PO Q6H PRN PRN Reason: Pain, Mild (1-3) Aspirin (Aspirin Chewable) 81 mg PO DAILY [facility] Last Admin: 02/18/18 10:23 Dose: 81 mg Atorvastatin Calcium (Lipitor) 40 mg PO HS [facility] Last Admin: 02/17/18 21:34 Dose: 40 mg Clonazepam (Klonopin) 1 mg PO BID [facility] PRN Reason: Protocol Last Admin: 02/18/18 10:20 Dose: 1 mg Clopidogrel Bisulfate (Plavix) 75 mg PO DAILY [facility] Last Admin: 02/18/18 10:23 Dose: 75 mg Docusate Sodium (Colace) 100 mg PO BID [facility] Last Admin: 02/18/18 10:19 Dose: 100 mg Enoxaparin Sodium (Lovenox) 40 mg SC DAILY [facility] PRN Reason: Protocol Last Admin: 02/18/18 10:21 Dose: 40 mg Vancomycin HCl (Vancomycin 1gm) 1 gm in 250 mls @ 167 mls/hr IVPB Q12 [facility] PRN Reason: Protocol Last Admin: 02/18/18 10:21 Dose: 167 mls/hr Insulin Human Regular (Humulin R Low) 0 units SC ACHS [facility] PRN Reason: Protocol Last Admin: 02/18/18 12:53 Dose: 1 unit Methadone HCl (Methadone) 30 mg PO Q12 [facility] Last Admin: 02/18/18 10:21 Dose: 30 mg Ondansetron HCl (Zofran Inj) 4 mg IVP ONCE PRN PRN Reason: Nausea/Vomiting Oxycodone/Acetaminophen (Percocet 5/325 Mg Tab) 1 tab PO Q4H PRN PRN Reason: Pain, moderate (4-7) Stop: 02/19/18 09:26 Oxycodone/Acetaminophen (Percocet 5/325 Mg Tab) 2 tab PO Q4H PRN PRN Reason: Pain, severe (8-10) Stop: 02/19/18 09:26 Pantoprazole Sodium (Protonix Ec Tab) 40 mg PO 0600 [facility] Last Admin: 02/18/18 06:14 Dose: Not Given Ramipril (Altace) 1.25 mg PO DAILY [facility] Last Admin: 02/18/18 10:19 Dose: 1.25 mg - Labs Labs: 02/18/18 05:30 02/18/18 05:30 PT 13.1 SECONDS (9.4-12.5) H 02/16/18 07:00 INR 1.14 02/16/18 07:00 APTT 33.5 Seconds (25.1-36.5) 02/11/18 16:30 - Constitutional Appears: Well, No Acute Distress, In Acute Distress - Head Exam Head Exam: ATRAUMATIC, NORMAL INSPECTION, NORMOCEPHALIC - ENT Exam ENT Exam: Mucous Membranes Moist - Respiratory Exam Respiratory Exam: Clear to Ausculation Bilateral, NORMAL BREATHING PATTERN. absent: Decreased Breath Sounds, Rales, Rhonchi, Wheezes, Respiratory Distress - Cardiovascular Exam Cardiovascular Exam: REGULAR RHYTHM, +S1, +S2. absent: Bradycardia, Tachycardia , Diastolic murmur, Murmur - GI/Abdominal Exam GI & Abdominal Exam: Soft, Normal Bowel Sounds. absent: Distended, Firm, Guarding, Tenderness - Extremities Exam Additional comments: right distal foot dressing clean, dry and intact - Neurological Exam Neurological Exam: Alert, Awake, Oriented x3 - Skin Skin Exam: Dry, Intact, Normal Color, Warm Assessment and Plan - Assessment and Plan (Free Text) Assessment: 68 yo male with PMH of right foot infected ulcer at site of 5th metatarsal amputation, previous osteomyelitis, skin and skin structure infection at the site of previous laminectomy and hardware placement, HCAP, MRSA bacteremia, Cholelithiasis S/P cholecystectomy, coronary artery disease, hypertension, diabetes mellitus, dementia presented with MRSA bacteremia with 1st right toe oteomyelitis s/p amputation. Echo did not show vegation. MRI report states suspected small abscess not appreciated largely in part due to significant susceptibility artifact. Continue vancomycin for 4-5 weeks. Patient should have weekly CBC, SMA- 18, sed rate, crp, and vancomycin trough levels. case reviewed and discussed with attending <Francois Lucas S - Last Filed: 02/18/18 14:53> Objective - Vital Signs/Intake and Output Vital Signs (last 24 hours): Temp Pulse Resp BP Pulse Ox 97.5 F L 86 20 119/60 98 02/18/18 08:32 02/18/18 13:48 02/18/18 08:32 02/18/18 10:19 02/18/18 13:48 Intake and Output: 02/18/18 02/18/18 06:59 18:59 Intake Total 490 Output Total 1700 Balance -1210 - Medications Medications: Current Medications Acetaminophen (Tylenol 325mg Tab) 650 mg PO Q6H PRN PRN Reason: Pain, Mild (1-3) Aspirin (Aspirin Chewable) 81 mg PO DAILY [facility] Last Admin: 02/18/18 10:23 Dose: 81 mg Atorvastatin Calcium (Lipitor) 40 mg PO HS [facility] Last Admin: 02/17/18 21:34 Dose: 40 mg Clonazepam (Klonopin) 1 mg PO BID [facility] PRN Reason: Protocol Last Admin: 02/18/18 10:20 Dose: 1 mg Clopidogrel Bisulfate (Plavix) 75 mg PO DAILY [facility] Last Admin: 02/18/18 10:23 Dose: 75 mg Docusate Sodium (Colace) 100 mg PO BID [facility] Last Admin: 02/18/18 10:19 Dose: 100 mg Enoxaparin Sodium (Lovenox) 40 mg SC DAILY [facility] PRN Reason: Protocol Last Admin: 02/18/18 10:21 Dose: 40 mg Vancomycin HCl (Vancomycin 1gm) 1 gm in 250 mls @ 167 mls/hr IVPB Q12 [facility] PRN Reason: Protocol Last Admin: 02/18/18 10:21 Dose: 167 mls/hr Insulin Human Regular (Humulin R Low) 0 units SC ACHS [facility] PRN Reason: Protocol Last Admin: 02/18/18 12:53 Dose: 1 unit Methadone HCl (Methadone) 30 mg PO Q12 [facility] Last Admin: 02/18/18 10:21 Dose: 30 mg Ondansetron HCl (Zofran Inj) 4 mg IVP ONCE PRN PRN Reason: Nausea/Vomiting Oxycodone/Acetaminophen (Percocet 5/325 Mg Tab) 1 tab PO Q4H PRN PRN Reason: Pain, moderate (4-7) Stop: 02/19/18 09:26 Oxycodone/Acetaminophen (Percocet 5/325 Mg Tab) 2 tab PO Q4H PRN PRN Reason: Pain, severe (8-10) Stop: 02/19/18 09:26 Pantoprazole Sodium (Protonix Ec Tab) 40 mg PO 0600 [facility] Last Admin: 02/18/18 06:14 Dose: Not Given Ramipril (Altace) 1.25 mg PO DAILY [facility] Last Admin: 02/18/18 10:19 Dose: 1.25 mg - Labs Labs: 02/18/18 05:30 02/18/18 05:30 PT 13.1 SECONDS (9.4-12.5) H 02/16/18 07:00 INR 1.14 02/16/18 07:00 APTT 33.5 Seconds (25.1-36.5) 02/11/18 16:30 Assessment and Plan - Assessment and Plan (Free Text) Assessment: Infectious Diseases Attending Physician Addendum Patient seen and examined, discussed with medical assistant. I have reviewed the pertinent clinical information for the patient, including history of present illness, medical, personal and social histories, lab results and imaging findings. I agree with the above findings, assessment and plan. In addition, will continue Vancomycin for this patient with MRSA bacteremia with right hallux osteomyelitis, R/O hardware infection, S/P thoracic spine laminectomy and fusion hardware placement. unable to do tagged WBC scan - imaging and the CT thoracic spine was suggesting small abscess in the T4-T5 area (site of previous abscess). Will check Vanco trough. Will need at least 6 weeks of IV Vancomycin with weekly ESR, CRP, CBC, CMP, Vanco trough while on Vancomycin. Target Vanco trough is 15-20 - if the trough is higher than 20, then it should be stopped and dose decreased. If patient develops renal failure, Vancomycin should also be stopped.
--- NOTE | 2018-02-18 13:53 | PN ---
Copied To: Leif Oleary MD Attending MD: Leif Oleary MD DATE: 02/18/2018 SUBJECTIVE: The patient is feeling well. Chest pain free. PHYSICAL EXAMINATION: VITAL SIGNS: Blood pressure is 119/60, heart rate is in the 50s. NECK: Negative JVD. LUNGS: Without rales. HEART: S1, S2. EXTREMITIES: Without edema. LABORATORY DATA: Hemoglobin is 10.5. Chemistries, BUN and creatinine unremarkable. Glucose is mildly elevated. IMPRESSION: 1. Status post foot ulcer in the lower extremities. 2. Status post surgery. 3. Diabetes mellitus. 4. Chronic obstructive pulmonary disease. 5. Pulmonary hypertension. 6. Stable angina. Given these findings, the patient is hemodynamically stable. No further cardiac workup is necessary at this time. The patient is awaiting transfer to a rehab facility. Leif Oleary MD
--- NOTE | 2018-02-18 14:05 | CP.PCM.PN ---
<Jac Meadelettyaris - Last Filed: 02/18/18 13:56> Subjective - Date & Time of Evaluation Date of Evaluation: 02/18/18 Time of Evaluation: 13:56 - Subjective Subjective: Podiatry progress note for attending Dr. Fry 68 y/o diabetic male seen and evaluated at bedside 2 days s/p right partial first ray amputation. Patient was resting comfortably and in no acute distress. Patient denies any further pedal complaints or acute overnight events. Patient denies F/N/V/SOB/chills/posterior calf pain. Objective - Vital Signs/Intake and Output Vital Signs (last 24 hours): Temp Pulse Resp BP Pulse Ox 97.5 F L 45 L 20 119/60 95 02/18/18 08:32 02/18/18 08:32 02/18/18 08:32 02/18/18 10:19 02/18/18 08:32 Intake and Output: 02/18/18 02/18/18 06:59 18:59 Intake Total 490 Output Total 1700 Balance -1210 - Medications Medications: Current Medications Acetaminophen (Tylenol 325mg Tab) 650 mg PO Q6H PRN PRN Reason: Pain, Mild (1-3) Aspirin (Aspirin Chewable) 81 mg PO DAILY [facility] Last Admin: 02/18/18 10:23 Dose: 81 mg Atorvastatin Calcium (Lipitor) 40 mg PO HS [facility] Last Admin: 02/17/18 21:34 Dose: 40 mg Clonazepam (Klonopin) 1 mg PO BID [facility] PRN Reason: Protocol Last Admin: 02/18/18 10:20 Dose: 1 mg Clopidogrel Bisulfate (Plavix) 75 mg PO DAILY [facility] Last Admin: 02/18/18 10:23 Dose: 75 mg Docusate Sodium (Colace) 100 mg PO BID [facility] Last Admin: 02/18/18 10:19 Dose: 100 mg Enoxaparin Sodium (Lovenox) 40 mg SC DAILY [facility] PRN Reason: Protocol Last Admin: 02/18/18 10:21 Dose: 40 mg Vancomycin HCl (Vancomycin 1gm) 1 gm in 250 mls @ 167 mls/hr IVPB Q12 [facility] PRN Reason: Protocol Last Admin: 02/18/18 10:21 Dose: 167 mls/hr Insulin Human Regular (Humulin R Low) 0 units SC ACHS [facility] PRN Reason: Protocol Last Admin: 02/18/18 12:53 Dose: 1 unit Methadone HCl (Methadone) 30 mg PO Q12 [facility] Last Admin: 02/18/18 10:21 Dose: 30 mg Ondansetron HCl (Zofran Inj) 4 mg IVP ONCE PRN PRN Reason: Nausea/Vomiting Oxycodone/Acetaminophen (Percocet 5/325 Mg Tab) 1 tab PO Q4H PRN PRN Reason: Pain, moderate (4-7) Stop: 02/19/18 09:26 Oxycodone/Acetaminophen (Percocet 5/325 Mg Tab) 2 tab PO Q4H PRN PRN Reason: Pain, severe (8-10) Stop: 02/19/18 09:26 Pantoprazole Sodium (Protonix Ec Tab) 40 mg PO 0600 [facility] Last Admin: 02/18/18 06:14 Dose: Not Given Ramipril (Altace) 1.25 mg PO DAILY [facility] Last Admin: 02/18/18 10:19 Dose: 1.25 mg - Labs Labs: 02/18/18 05:30 02/18/18 05:30 PT 13.1 SECONDS (9.4-12.5) H 02/16/18 07:00 INR 1.14 02/16/18 07:00 APTT 33.5 Seconds (25.1-36.5) 02/11/18 16:30 - Constitutional Appears: Well, Non-toxic, No Acute Distress - Extremities Exam Additional comments: Lower Extremity Focused Exam VASC: DP pulses non-palpable, PT pulse weakly palpable, TG warm to cool, CFT delayed to all digits, NEURO: Unable to detect protective sensation bilaterally DERM: Surgical sutures are intact with no dehiscence, no drainage, no malodor, no purulence, no erythema, no clinical suspicion of active infection MSK: Pain on deep palpation of the surgical site, previous amputations of the right 4th and 5th digits - Neurological Exam Neurological Exam: Alert, Awake, Oriented x3 - Psychiatric Exam Psychiatric exam: Normal Affect, Normal Mood Assessment and Plan - Assessment and Plan (Free Text) Assessment: 68 y/o diabetic male was evaluated 2 days s/p right partial 1st ray amputation Plan: Patient was seen and evaluated with attending Dr. Fry Chart, labs and vitals were reviewed Afebrile, absent leukocyotosis Wound Culture- MRSA Blood Culture- MRSA Foot MRI- Increase in signal intensity indicating marrow edema at the level of distal and proximal phalanx of the hallux consistent with OM Arterial-Venous Dopplers- Pending Patient wound cleased with saline and dressed with betadine, DSD Continue IV Abx as per ID Patient to WBAT in forefoot off-loading shoe Stable from podiatry standpoint Podiatry will continue to follow patient while in house <Kishan Fry - Last Filed: 02/18/18 17:07> Objective - Vital Signs/Intake and Output Vital Signs (last 24 hours): Temp Pulse Resp BP Pulse Ox 97.5 F L 86 20 119/60 98 02/18/18 08:32 02/18/18 13:48 02/18/18 08:32 02/18/18 10:19 02/18/18 13:48 Intake and Output: 02/18/18 02/18/18 06:59 18:59 Intake Total 490 Output Total 1700 Balance -1210 - Medications Medications: Current Medications Acetaminophen (Tylenol 325mg Tab) 650 mg PO Q6H PRN PRN Reason: Pain, Mild (1-3) Aspirin (Aspirin Chewable) 81 mg PO DAILY [facility] Last Admin: 02/18/18 10:23 Dose: 81 mg Atorvastatin Calcium (Lipitor) 40 mg PO HS [facility] Last Admin: 02/17/18 21:34 Dose: 40 mg Clonazepam (Klonopin) 1 mg PO BID [facility] PRN Reason: Protocol Last Admin: 02/18/18 10:20 Dose: 1 mg Clopidogrel Bisulfate (Plavix) 75 mg PO DAILY [facility] Last Admin: 02/18/18 10:23 Dose: 75 mg Docusate Sodium (Colace) 100 mg PO BID [facility] Last Admin: 02/18/18 10:19 Dose: 100 mg Enoxaparin Sodium (Lovenox) 40 mg SC DAILY [facility] PRN Reason: Protocol Last Admin: 02/18/18 10:21 Dose: 40 mg Vancomycin HCl (Vancomycin 1gm) 1 gm in 250 mls @ 167 mls/hr IVPB Q12 [facility] PRN Reason: Protocol Last Admin: 02/18/18 10:21 Dose: 167 mls/hr Insulin Human Regular (Humulin R Low) 0 units SC ACHS [facility] PRN Reason: Protocol Last Admin: 02/18/18 16:46 Dose: Not Given Methadone HCl (Methadone) 30 mg PO Q12 [facility] Last Admin: 02/18/18 10:21 Dose: 30 mg Ondansetron HCl (Zofran Inj) 4 mg IVP ONCE PRN PRN Reason: Nausea/Vomiting Oxycodone/Acetaminophen (Percocet 5/325 Mg Tab) 1 tab PO Q4H PRN PRN Reason: Pain, moderate (4-7) Stop: 02/19/18 09:26 Oxycodone/Acetaminophen (Percocet 5/325 Mg Tab) 2 tab PO Q4H PRN PRN Reason: Pain, severe (8-10) Stop: 02/19/18 09:26 Pantoprazole Sodium (Protonix Ec Tab) 40 mg PO 0600 [facility] Last Admin: 02/18/18 06:14 Dose: Not Given Ramipril (Altace) 1.25 mg PO DAILY [facility] Last Admin: 02/18/18 10:19 Dose: 1.25 mg - Labs Labs: 02/18/18 05:30 02/18/18 05:30 PT 13.1 SECONDS (9.4-12.5) H 02/16/18 07:00 INR 1.14 02/16/18 07:00 APTT 33.5 Seconds (25.1-36.5) 02/11/18 16:30 Attending/Attestation - Attestation I have personally seen and examined this patient.: Yes I have fully participated in the care of the patient.: Yes I have reviewed all pertinent clinical information, including history, physical exam and plan: Yes
[2018-02-18 14:08] VITALS: O2SAT 98
--- NOTE | 2018-02-18 14:59 | CP.PCM.DIS ---
<Armani Pritchard - Last Filed: 02/18/18 14:55> Provider - Provider Date of Admission: 02/11/18 17:05 Attending physician: Matteo Felder MD Primary care physician: Tate Villa MD Consults: Cardio: Anirudh Podiatry: Ang ID: Go IR: Eloy Neurosurg: Wolf Time Spent in preparation of Discharge (in minutes): 35 Diagnosis - Discharge Diagnosis (1) Surgical wound, non healing Status: Chronic Priority: Medium (2) Cellulitis Status: Acute Priority: Medium (3) Osteomyelitis Status: Acute Priority: High (4) Leg pain Status: Resolved Priority: Medium Hospital Course - Lab Results Lab Results: Micro Results 02/13/18 11:50 Blood Blood Culture - Final NO GROWTH AFTER 5 DAYS 02/13/18 11:50 Blood Gram Stain - Final TEST NOT PERFORMED 02/16/18 13:00 Other: Please Indicate Gram Stain - Final 02/16/18 13:00 Other: Please Indicate Wound Culture - Preliminary No growth. 02/12/18 15:30 Drainage Gram Stain - Final 02/12/18 15:30 Drainage Wound Culture - Final Coagulase Neg Staphylococcus 02/12/18 10:50 Toe Gram Stain - Final 02/12/18 10:50 Toe Wound Culture - Final Methicillin Resistant S Aureus Most Recent Lab Values WBC 7.8 10^3/ul (4.5-11.0) 02/18/18 05:30 RBC 3.94 10^6/uL (3.5-6.1) 02/18/18 05:30 Hgb 10.5 g/dL (14.0-18.0) L 02/18/18 05:30 Hct 31.4 % (42.0-52.0) L 02/18/18 05:30 MCV 79.7 fl (80.0-105.0) L 02/18/18 05:30 MCH 26.6 pg (25.0-35.0) 02/18/18 05:30 MCHC 33.4 g/dl (31.0-37.0) 02/18/18 05:30 RDW 16.5 % (11.5-14.5) H 02/18/18 05:30 Plt Count 164 10^3/uL (120.0-450.0) 02/18/18 05:30 MPV 9.1 fl (7.0-11.0) 02/18/18 05:30 Gran % 62.1 % (50.0-68.0) 02/18/18 05:30 Lymph % (Auto) 22.1 % (22.0-35.0) 02/18/18 05:30 [place] % (Auto) 10.1 % (1.0-6.0) H 02/18/18 05:30 Eos % (Auto) 5.4 % (1.5-5.0) H 02/18/18 05:30 Baso % (Auto) 0.3 % (0.0-3.0) 02/18/18 05:30 Gran # 4.82 (1.4-6.5) 02/18/18 05:30 Lymph # (Auto) 1.7 (1.2-3.4) 02/18/18 05:30 [place] # (Auto) 0.8 (0.1-0.6) H 02/18/18 05:30 Eos # (Auto) 0.4 (0.0-0.7) 02/18/18 05:30 Baso # (Auto) 0.02 K/mm3 (0.0-2.0) 02/18/18 05:30 ESR 47 mm/hr (0.00-15.0) H 02/11/18 16:30 PT 13.1 SECONDS (9.4-12.5) H 02/16/18 07:00 INR 1.14 02/16/18 07:00 APTT 33.5 Seconds (25.1-36.5) 02/11/18 16:30 Sodium 137 mmol/L (132-148) 02/18/18 05:30 Potassium 4.1 mmol/L (3.6-5.0) 02/18/18 05:30 Chloride 99 mmol/L (98-107) 02/18/18 05:30 Carbon Dioxide 30 mmol/L (21-33) 02/18/18 05:30 Anion Gap 13 (10-20) 02/18/18 05:30 BUN 12 mg/dL (7-21) 02/18/18 05:30 Creatinine 0.7 mg/dl (0.8-1.5) L 02/18/18 05:30 Est GFR ( Amer) > 60 02/18/18 05:30 Est GFR (Non-Af Amer) > 60 02/18/18 05:30 POC Glucose (mg/dL) 108 mg/dL (65-110) 02/18/18 07:30 Random Glucose 95 mg/dL (70-110) 02/18/18 05:30 Calcium 8.8 mg/dL (8.4-10.5) 02/18/18 05:30 Total Bilirubin 0.6 mg/dL (0.2-1.3) 02/18/18 05:30 AST 38 U/L (17-59) 02/18/18 05:30 ALT 30 U/L (7-56) 02/18/18 05:30 Alkaline Phosphatase 77 U/L (38-126) 02/18/18 05:30 C-React Prot High Sens > 15.00 mg/L (1.00-3.00) H 02/12/18 06:30 Total Protein 6.9 g/dL (5.8-8.3) 02/18/18 05:30 Albumin 3.0 g/dL (3.0-4.8) 02/18/18 05:30 Globulin 3.9 gm/dL 02/18/18 05:30 Albumin/Globulin Ratio 0.8 (1.1-1.8) L 02/18/18 05:30 - Hospital Course Hospital Course: This is a 68 yo M with PMH of diabetes mellitus type 2, hypertension, hyperlipidemia, prior osteomyelitis s/p 4th and 5th right toe amputation, coronary artery disease s/p triple-vessel CABG (2006) who presented to [facility] with right 1st toe wound that has been present for "a few years". Patient was determined to have a new osteomyelitis of the right 1st ray, positive for MRSA on culture. He was also found to have a chronically draining wound in his back , at the site of a prior vertebral surgery. While here, patient was also seen by Cardio, Neurosugery, Podiatry, ID, and IR. As per Cardio, his bradycardia improved and no arrhythmias were appreciated, so no cardiac intervention was required. As per Podiatry, osteomyelitis required partial amputation, which patient underwent on 02/16/18, and patient will need to follow up as outpatient for routine wound care and reassessment. Underwent R tibial artery by IR. As per ID, he will need to remain on another 5 weeks of IV vancomycin, and will need weekly ESR/CRP /CBC/SMA-17/Vanco troughs while on the antibiotics (scripts for both placed in patient chart). As per Neurosurgery, his wound is likely from poor healing after his neurosurgical procedure, but based on review of the imaging, lack of severe symptoms, and the patient's desire to avoid extensive surgery, there is no neurosurgical intervention indicated at this time. Patient to be discharged to [facility] to complete antibiotic course. He is to follow up with his PMD within 1 week of discharge from [facility], with Podiatry (Dr. Fry/ Dr. Rich) for wound care as scheduled, and with Neurosurgery (Dr. Lopez /Dr. Hoff) for follow up of his back wound. Discharge instructions, including [facility], antibiotic course, follow-ups, and proper diabetic management reviewed with patient, who expressed understanding and agreement. All questions were answered to his satisfaction, then he was discharged to [facility]. Seen, reviewed, and discussed with attending, Dr. Felder. Discharge Exam - Additional Findings Additional findings: - Constitutional Appears: Well, Non-toxic, No acute distress - Head Exam Head Exam: ATRAUMATIC, NORMOCEPHALIC - Eye Exam Eye Exam: EOMI, Normal appearance. absent: Scleral icterus - ENT Exam ENT Exam: Mucous Membranes Moist - Respiratory Exam Respiratory Exam: Clear to Ausculation Bilateral, NORMAL BREATHING PATTERN. absent: Rales, Rhonchi, Wheezes, Respiratory Distress - Cardiovascular Exam Cardiovascular Exam: REGULAR RATE & RHYTHM (rc overnight on tele monitor, but normal on exam), +S1, +S2. absent: Murmur, JVD - GI/Abdominal Exam GI & Abdominal Exam: Soft, Normal Bowel Sounds. absent: Tenderness - Extremities Exam BL DP/TP diminished bilaterally R foot bandaged; dressing CDI; elevated on pillow - Back Exam Back Exam: Upper back examined. Midline scar present T3 through T7. Bandage in place over T6 midline. No purulent drainage seen through bandaging, no surrounding erythema or appreciable fluctuance - Neurological Exam Neurological Exam: Awake and alert, following all commands appropriately, moving all extremities spontaneously - Psychiatric Exam Psychiatric exam: Normal Affect, Normal Mood Discharge Plan - Discharge Medications Prescriptions: Vancomycin 1 GM [Vancomycin 1GM in Normal Saline Addvantage] 1 gm IVPB Q12 #70 bag - Follow Up Plan Condition: STABLE Disposition: REHAB FACILITY/REHAB UNIT Instructions: Osteomyelitis, Cellulitis (DC), Cellulitis (GEN) Additional Instructions: -You were seen for infection in the bone of your leg, called osteomyelitis. The worst section of bone has been removed, and you are now on long-term antibiotics to completely treat the infection. Routine labs will be obtained weekly to assess the efficacy of the treatment and ensure adequate level of antibiotics active (script for weekly labs provided). -You are going to a Sub-acute rehab facility to continue the IV antibiotic treatment while also getting some physical therapy. It is important that you participate with the physical therapy, to regain strength and prevent buildup of new wounds. -Please complete your antibiotic course. DO NOT stop early if you feel well, you must finish the course for the best chance to resolve the infection and prevent a re-occurrence of the infection. -Please check your blood sugars routinely, and maintain a carbohydrate consistent diet. Poorly controlled diabetes leads to poor wound healing and increased risk of infections. -Please avoid all tobacco and alcohol use while this infection recovers. -Please follow up with your PMD (Dr. Villa) within 1 week of discharge from Rehab. Please follow up with Podiatry (Dr. Fry/Dr. Rich) as previously scheduled. Please call and schedule follow up with your Neurosurgeon (Dr. Hoff/Dr. Lopez) for your back wound. -If you experience worsening or newly concerning symptoms, please present to the nearest ED. Please resume the following medications (or their generic equivalents): Aspirin 81mg daily Lipitor 40mg nightly Klonopin 1mg 2x per day Plavix 75 mg daily Methadone 10mg daily Protonix 40mg daily Altace 1.25mg daily Januvia 100mg daily You were started on: Vancomycin 1g 2x per day for 5 weeks Stop Taking: Toprol XL 50mg daily Referrals: Giana Rich DPM [Staff Provider] - Scotty Lopez MD [Staff Provider] - Tate Villa MD [Primary Care Provider] - <Matteo Felder - Last Filed: 02/18/18 17:05> Provider - Provider Date of Admission: 02/11/18 17:05 Attending physician: Matteo Felder MD Primary care physician: Tate Villa MD Hospital Course - Lab Results Lab Results: Micro Results 02/13/18 11:50 Blood Blood Culture - Final NO GROWTH AFTER 5 DAYS 02/13/18 11:50 Blood Gram Stain - Final TEST NOT PERFORMED 02/16/18 13:00 Other: Please Indicate Gram Stain - Final 02/16/18 13:00 Other: Please Indicate Wound Culture - Preliminary No growth. 02/12/18 15:30 Drainage Gram Stain - Final 02/12/18 15:30 Drainage Wound Culture - Final Coagulase Neg Staphylococcus 02/12/18 10:50 Toe Gram Stain - Final 02/12/18 10:50 Toe Wound Culture - Final Methicillin Resistant S Aureus Most Recent Lab Values WBC 7.8 10^3/ul (4.5-11.0) 02/18/18 05:30 RBC 3.94 10^6/uL (3.5-6.1) 02/18/18 05:30 Hgb 10.5 g/dL (14.0-18.0) L 02/18/18 05:30 Hct 31.4 % (42.0-52.0) L 02/18/18 05:30 MCV 79.7 fl (80.0-105.0) L 02/18/18 05:30 MCH 26.6 pg (25.0-35.0) 02/18/18 05:30 MCHC 33.4 g/dl (31.0-37.0) 02/18/18 05:30 RDW 16.5 % (11.5-14.5) H 02/18/18 05:30 Plt Count 164 10^3/uL (120.0-450.0) 02/18/18 05:30 MPV 9.1 fl (7.0-11.0) 02/18/18 05:30 Gran % 62.1 % (50.0-68.0) 02/18/18 05:30 Lymph % (Auto) 22.1 % (22.0-35.0) 02/18/18 05:30 [place] % (Auto) 10.1 % (1.0-6.0) H 02/18/18 05:30 Eos % (Auto) 5.4 % (1.5-5.0) H 02/18/18 05:30 Baso % (Auto) 0.3 % (0.0-3.0) 02/18/18 05:30 Gran # 4.82 (1.4-6.5) 02/18/18 05:30 Lymph # (Auto) 1.7 (1.2-3.4) 02/18/18 05:30 [place] # (Auto) 0.8 (0.1-0.6) H 02/18/18 05:30 Eos # (Auto) 0.4 (0.0-0.7) 02/18/18 05:30 Baso # (Auto) 0.02 K/mm3 (0.0-2.0) 02/18/18 05:30 ESR 47 mm/hr (0.00-15.0) H 02/11/18 16:30 PT 13.1 SECONDS (9.4-12.5) H 02/16/18 07:00 INR 1.14 02/16/18 07:00 APTT 33.5 Seconds (25.1-36.5) 02/11/18 16:30 Sodium 137 mmol/L (132-148) 02/18/18 05:30 Potassium 4.1 mmol/L (3.6-5.0) 02/18/18 05:30 Chloride 99 mmol/L (98-107) 02/18/18 05:30 Carbon Dioxide 30 mmol/L (21-33) 02/18/18 05:30 Anion Gap 13 (10-20) 02/18/18 05:30 BUN 12 mg/dL (7-21) 02/18/18 05:30 Creatinine 0.7 mg/dl (0.8-1.5) L 02/18/18 05:30 Est GFR ( Amer) > 60 02/18/18 05:30 Est GFR (Non-Af Amer) > 60 02/18/18 05:30 POC Glucose (mg/dL) 148 mg/dL (65-110) H 02/18/18 16:14 Random Glucose 95 mg/dL (70-110) 02/18/18 05:30 Calcium 8.8 mg/dL (8.4-10.5) 02/18/18 05:30 Total Bilirubin 0.6 mg/dL (0.2-1.3) 02/18/18 05:30 AST 38 U/L (17-59) 02/18/18 05:30 ALT 30 U/L (7-56) 02/18/18 05:30 Alkaline Phosphatase 77 U/L (38-126) 02/18/18 05:30 C-React Prot High Sens > 15.00 mg/L (1.00-3.00) H 02/12/18 06:30 Total Protein 6.9 g/dL (5.8-8.3) 02/18/18 05:30 Albumin 3.0 g/dL (3.0-4.8) 02/18/18 05:30 Globulin 3.9 gm/dL 02/18/18 05:30 Albumin/Globulin Ratio 0.8 (1.1-1.8) L 02/18/18 05:30 Attending/Attestation - Attestation I have personally seen and examined this patient.: Yes I have fully participated in the care of the patient.: Yes I have reviewed all pertinent clinical information, including history, physical exam and plan: Yes Notes (Text): 02/18/18 17:01 68 year old male with past medical history of diabetes, dyslipidemia, CAD s/p CABG, COPD, osteomyelitis of right 4th/5th metatarsals and history of thoracic kyphoplasty with internal fixation who presented with right foot diabetic toe ulcer. Xray and MRI of foot were suggestive of osteomyelitis. Wound culture and blood culture grew MRSA. He was treated with iv antibiotics. He was being followed by ID and podiatry and is s/p right 1st ray amputation POD #2. Arterial doppler showed right SFA and tibial artery occlusive disease. He was seen by IR and had angioplasty. CT and MRI spine was also reviewed. He was seen by neurosurgery who recommended outpatient follow up. Cardiology evaluation was appreciated for bradycardia. Metoprolol was held and heart rate has improved. Patient is discharged to [facility]. Continue with 5 weeks of iv antibiotics. Monitor weekly CBC, CMP, ESR and CRP. Monitor vanco trough while on vanco. Dose may need to be adjusted accordingly. Follow up with pmd. Follow up with podiatry. Metoprolol was discontinued. Matteo Felder MD Hospitalist.
[2018-02-18 17:41] VITALS: BP 109/56; PULSE 64; RESP 19; TEMP 97.8
== END 2018-02-18 20:55 | DRG 617 ==
LOC: ED 15:05 → ERH 17:05 → 3RNO 18:40 → 2RSO 02-15 17:02 → 3RSO 02-16 16:25
PROVIDERS: ADMIT Internal Medicine; ATTEND Internal Medicine
PROC: 047P3ZZ Dilation of Right Anterior Tibial Artery, Percutaneous Approach (ICD-10-PCS; 2018-02-15)
PROC: B41DYZZ Fluoroscopy of Aorta and Bilateral Lower Extremity Arteries using Other Contrast (ICD-10-PCS; 2018-02-15)
PROC: 05H533Z Insertion of Infusion Device into Right Subclavian Vein, Percutaneous Approach (ICD-10-PCS; 2018-02-15)
PROC: B546ZZA Ultrasonography of Right Subclavian Vein, Guidance (ICD-10-PCS; 2018-02-15)
PROC: 0Y6P0Z3 Detachment at Right 1st Toe, Low, Open Approach (ICD-10-PCS; principal; 2018-02-16 08:00)
DX: E11.69 Type 2 diabetes mellitus with other specified complication (principal); M86.171 Other acute osteomyelitis, right ankle and foot; L02.212 Cutaneous abscess of back [any part, except buttock and flank]; E11.621 Type 2 diabetes mellitus with foot ulcer; L97.519 Non-pressure chronic ulcer of other part of right foot with unspecified severity; L03.031 Cellulitis of right toe; B95.62 Methicillin resistant Staphylococcus aureus infection as the cause of diseases classified elsewhere; E11.51 Type 2 diabetes mellitus with diabetic peripheral angiopathy without gangrene; E11.42 Type 2 diabetes mellitus with diabetic polyneuropathy; I87.2 Venous insufficiency (chronic) (peripheral); I27.20 Pulmonary hypertension, unspecified; I25.118 Atherosclerotic heart disease of native coronary artery with other forms of angina pectoris; T44.7X5A Adverse effect of beta-adrenoreceptor antagonists, initial encounter; R00.1 Bradycardia, unspecified; J44.9 Chronic obstructive pulmonary disease, unspecified; K59.09 Other constipation; F03.90 Unspecified dementia, unspecified severity, without behavioral disturbance, psychotic disturbance, mood disturbance, and anxiety; G89.29 Other chronic pain; I10 Essential (primary) hypertension; E78.5 Hyperlipidemia, unspecified; F41.9 Anxiety disorder, unspecified; T81.89XA Other complications of procedures, not elsewhere classified, initial encounter; Z91.19 Patient's noncompliance with other medical treatment and regimen; Z79.891 Long term (current) use of opiate analgesic; Z79.4 Long term (current) use of insulin; Z89.421 Acquired absence of other right toe(s); Z95.5 Presence of coronary angioplasty implant and graft; Z95.1 Presence of aortocoronary bypass graft; Z87.891 Personal history of nicotine dependence; Z90.49 Acquired absence of other specified parts of digestive tract; Z79.02 Long term (current) use of antithrombotics/antiplatelets; Z79.82 Long term (current) use of aspirin; Y83.8 Other surgical procedures as the cause of abnormal reaction of the patient, or of later complication, without mention of misadventure at the time of the procedure

== ENCOUNTER 2018-09-17 14:11 | Inpatient (IN) | payer MEDICARE, OTHER ==
[2018-09-17 14:12] VITALS: BMI 23.6
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
[2018-09-17 15:31] LABS: BASO # 0.02 K/mm3 (0.0-2.0); BASO % 0.3 % (0.0-3.0); EOS # 0.2 (0.0-0.7); HEMOGLOBIN 11.7 g/dL (14.0-18.0); LYMPH # 1.3 (1.2-3.4); LYMPH % 16.6 % (22.0-35.0); MEAN CELL VOLUME 83.1 fl (80.0-105.0); MEAN CORPUSCULAR HEMOGLOBIN 25.7 pg (25.0-35.0); MEAN CORPUSCULAR HGB CONC 30.9 g/dl (31.0-37.0); MONO # 0.5 (0.1-0.6); MONO % 6.5 % (1.0-6.0); RBC 4.56 10^6/uL (3.5-6.1); RED CELL DISTRIBUTION WIDTH 16.3 % (11.5-14.5)
[2018-09-17 15:41] LABS: INR 1.2; PARTIAL THROMBOPLASTIN TIME 35.6 Seconds (26.9-38.3); PROTHROMBIN TIME 13.3 SECONDS (9.4-12.5)
[2018-09-17 15:56] LABS: ALB/GLOB RATIO 0.8 (1.1-1.8); ALBUMIN 3.6 g/dL (3.0-4.8); BLOOD UREA NITROGEN 25 mg/dL (7-21); CALCIUM 9.2 mg/dL (8.4-10.5); GFR NON-AFRICAN AMERICAN > 60
[2018-09-17 16:08] LABS: ALT/SGPT 33 U/L (7-56); AST/SGOT 76 U/L (17-59)
[2018-09-17] MEDS ORDERED: Clindamycin 600mg/50ml D5W 600 MG/50 ML VIAL IVPB STA (16:32)
[2018-09-17] MEDS: Sodium Chloride 0.9% 1,000 ML IV SCH (17:14)
[2018-09-17] MEDS ORDERED: Iohexol 350 MG/100 ML VIAL ONE (17:27)
[2018-09-17 17:51] LABS: URINE BILIRUBIN NEGATIVE (NEGATIVE); URINE BLOOD MODERATE (NEGATIVE); URINE GLUCOSE (UA) NEGATIVE (NEGATIVE); URINE LEUKOCYTE ESTERASE SMALL Leu/uL (NEGATIVE); URINE PROTEIN 30 mg/dL (<30 mg/dL)
[2018-09-17 17:52] LABS: URINE APPEARANCE SL CLOUDY (CLEAR); URINE COLOR YELLOW (YELLOW)
[2018-09-17 18:04] LABS: BENZODIAZEPINES, UR NEGATIVE (NEGATIVE); PHENCYCLIDINE, UR NEGATIVE (NEGATIVE)
[2018-09-17 18:06] LABS: URINE BACTERIA FEW /hpf; URINE EPITHELIAL CELLS 0 - 2 /hpf (0-5)
[2018-09-17 18:23] LABS: BARBITURATES, UR NEGATIVE (NEGATIVE); OPIATES, UR NEGATIVE (NEGATIVE)
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
[2018-09-17] MEDS ORDERED: Dextrose 50% SYRINGE Inj (50 ml) IV PRN (19:41)
[2018-09-17] MEDS: Insulin Lispro (humaLOG) LOW Coverage SC SCH (23:08)
[2018-09-18] MEDS: Insulin Lispro (humaLOG) LOW Coverage SC SCH ×4 (08:11→21:42)
[2018-09-18] MEDS: Sodium Chloride 0.9% 1,000 ML IV SCH ×2 (08:53→21:42)
--- NOTE | 2018-09-18 09:59 | CT ---
Date of service: 09/17/2018 PROCEDURE: CT Thoracic Spine with contrast HISTORY: stage 4 ulcer / history of osteomyelitis COMPARISON: 02/13/2018 MR thoracic spine. Eleven 18 CT thoracic spine TECHNIQUE: Axial computed tomography images were obtained of the thoracic spine were obtained, following administration of intravenous iodinated contrast. Coronal and sagittal reformatted images were created and reviewed. Intravenous contrast dose: Radiation dose: Total exam DLP = 541.15 mGy-cm. This CT exam was performed using one or more of the following dose reduction techniques: Automated exposure control, adjustment of the mA and/or kV according to patient size, and/or use of iterative reconstruction technique. FINDINGS: VERTEBRAE: Post-laminectomy finding similar to that seen previously. No evidence of orthopedic hardware failure. DISCS/SPINAL CANAL/NEURAL FORAMINA: Within the limits of the CT technique, no disc herniation seen. No central canal or neural foraminal stenosis.. PARASPINAL SOFT TISSUES: Defect in the skin T6-7 extends to the postoperative site, laminectomy. This is at the site of the fusion of T6 and T7. There is no evidence of destructive lesion associated with these findings. Adjacent osseous structures are likewise unaffected. ENHANCEMENT: No abnormal enhancement. OTHER FINDINGS: Stable pleural base mass right lower lobe.. IMPRESSION: Air within soft tissues at the site of a skin lesions/wound. Findings extend to the laminectomy site, are partially obscured by streak artifact from orthopedic hardware. The findings are best seen on axial series 3 extending from images 67-77 over a distance of approximately 3 cm. Stable postoperative findings related to posterior laminectomy, fusion of T6-T7 vertebral bodies. Concordant findings (preliminary report) provided by [facility].
[2018-09-18] MEDS: Pantoprazole 40 mg EC Tab PO SCH (10:05)
[2018-09-18] MEDS: Vancomycin 1gm in NS 250ml 1 GM/250 ML BAG IVPB SCH (14:04)
--- NOTE | 2018-09-18 17:05 | CON ---
DATE OF CONSULTATION: 09/18/2018 CHIEF COMPLAINT: Spinal nonhealing ulcer x1 year. HISTORY OF PRESENT ILLNESS: This is a 68-year-old male with diabetes mellitus and hypertension, hepatitis C, hyperlipidemia, coronary artery disease, migraine, depression, history of MRSA bacteremia, had a fourth and fifth right toe amputation, and coronary artery bypass graft. The patient had a laminectomy in 2016, and some time after a laminectomy, the patient states there is a chronic drainage from his spine, thoracic spine in his back is intermittent. It is not associated with fevers, no chills. He has minimal pain and no abdominal pain, diarrhea or constipation. No bright red blood per rectum. PAST MEDICAL HISTORY: Significant for diabetes, hypertension, hepatitis C, hyperlipidemia, coronary artery disease, migraine, depression, MRSA bacteremia, and a back abscess in the past has also grown MRSA, in 2015 the patient had the MRSA bacteremia in January. On August 24, 2016, the patient had also MRSA. REVIEW OF SYSTEMS: Twelve-point review systems is performed. PAST MEDICAL HISTORY: As stated with diabetes, hypertension, hyperlipidemia, coronary artery disease, depression, MRSA bacteremia, hepatitis C, osteomyelitis of the fourth and fifth toes, peripheral vascular disease. PAST SURGICAL HISTORY: Significant for coronary bypass graft in 2006 and the patient had laminectomy in 2016. He has hardware in his spine that is from that laminectomy. ALLERGIES: THE PATIENT HAS NO KNOWN ALLERGIES. MEDICATIONS: Aspirin, Klonopin, Januvia. PHYSICAL EXAMINATION: GENERAL: The patient is in bed, in no acute distress, answering questions appropriately. VITAL SIGNS: Temperature of 98, blood pressure is 150/80, respiratory rate of 18, heart rate of 87. HEENT: Examination of HEENT is unremarkable. NECK: Supple. LUNGS: Have decreased breath sounds. HEART: Normal S1, S2. ABDOMEN: Soft, nontender. MUSCULOSKELETAL: Examination of back, there is an ulcer of the spine with the thoracic level and no discharge now, no erythema. There is a separate laminectomy site, with fusion of T6-T7 with orthopedic hardware at that site, but that is not visible on exam, just a simple ulcer. NEUROLOGIC: The patient is awake and alert on exam. Neurologically, the patient is awake and alert. Motor function is 5/5. Cranial nerves are intact. There are no motor deficits noted. The patient's sensation is intact. LABORATORY DATA: Laboratory examination reveals a white count of 8000, hemoglobin of 11, platelets of 160. Sed rate is 35. Coagulation is noted. Chemistries reveal a BUN of 25, creatinine of 0.9. Urinalysis is noted. Toxicology is noted. Emergency room chart by . consultation is reviewed; she states her patient had T6-T7 laminectomy and T4-T9 spinal fusion in [address] Hoff, now with a chronic nonhealing ulcer in the mid thoracic spine. ASSESSMENT AND PLAN: This is a 68-year-old male with diabetes mellitus, hepatitis C, hypertension, hyperlipidemia, coronary artery disease, migraine, depression, methicillin-resistant Staphylococcus aureus bacteremia with a CT scan of the spine thoracic spine is noted. There is soft tissue skin with at the site of the laminectomy. There is no evidence of destructive lesion associated with these findings on CT scan on affected area. This is a 68-year-old male with status post laminectomy 2 years ago, now with a chronic nonhealing ulcer at the thoracic spine, must rule out underlying osteomyelitis and infection of the hardware. At this time, the patient has no systemic illnesses, no more neurological deficits. Ideally should get an MRI if the hardware is not a contraindication. Superficial wound cultures with staph aureus may be helpful; however, if the hardware is infected, antibiotic treatment alone will not be of any benefit, and hence the hardware is removed. Sed rate is right now reported to be essentially normal for his age. We will order a C-reactive protein since there is no systemic illness, and there are no neurological deficits. We will hold off on any antibiotics at this point and pending discussion with Allen Marinelli, Neurosurgery. I have discussed the options with the patient of treatments, he understands and will follow instructions. At this time, we will hold off any antibiotics pending wound culture. Consider osteo of the spine with hardware infection. We will follow with you. Roel English MD
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
[2018-09-19] MEDS: Vancomycin 1gm in NS 250ml 1 GM/250 ML BAG IVPB SCH ×2 (00:24→15:20)
--- NOTE | 2018-09-19 08:33 | CP.PCM.CON ---
<GoyoFernando - Last Filed: 09/19/18 17:02> History of Present Illness - History of Present Illness History of Present Illness: Fernando Nance PGY2 GI Consult Note for Dr. Edouard Reason for consult: hep c Mr. Cote is a 68 year old male with a PMH of HCV (not treated), CAD s/p CABG, DM2, HTN, OM s/p amputations of right digits, and spinal surgery w/ recurrent discharge who presents for another episode of discharge from near his orthopedic surgery. GI consulted for hep c. Regarding the patient's hepatitis C, the patient is unaware of his diagnosis and cannot provide any risk factors for why he would have it. Chart review reveals that the diagnosis was made in 2016 via biopsy, and that on subsequent visits, the patient still did not accept the diagnosis. He had HCV RNA and quantitative PCR done in 2015 and 2016 which were both elevated. Alpha-fetoprotein was done on 03/29/2017 which was normal at 1.3 his most recent abdominal ultrasound was done on 03/26/2017 and this showed fatty infiltration of the liver and mild splenomegaly and mild diffuse dilatation of common bile duct keeping with postcholecystectomy. In December 2015 he had an EGD/EUS for dilated CBD that showed multiple gallstones and periportal lymph nodes and he then had a cholecystectomy with liver biopsy, and was found to have chronic Hepatitis C, biopsy revealed Grade 2 Stage 3; liver biopsy showed periportal inflammation with focal bridge fibrosis. Patient has not received any treatment, and does not appear to comprehend his diagnosis at this time. He denies any abnormal bleeding, abdominal pain, weakness, weight loss, chest pain, or skin changes. 12-pt ROS was reviewed and is only remarkable for the back pain and discharge. PMH: as above PSH: CABG, coronary stent X 2, cholecystectomy, laminectomy, right toe amputation for osteomyelitis Meds: reviewed Allergies: NKDA SHx: tobacco smoker, remote hx of EtOH use, denies drug use Family hx: denies colon/gastric cancer, says parents were healthy, father in 80's Review of Systems - Review of Systems All systems: reviewed and no additional remarkable complaints except (as per HPI) Past Patient History - Infectious Disease Hx of Infectious Diseases: None - Tetanus Immunizations Tetanus Immunization: Unknown - Past Social History Smoking Status: Light Smoker < 10 Cigarettes Daily Alcohol: None Drugs: Denies - CARDIAC Hx Cardiac Disorders: Yes Hx Hypertension: Yes - PULMONARY Hx Chronic Obstructive Pulmonary Disease (COPD): Yes - NEUROLOGICAL Hx Alzheimer's Disease: No Hx Dementia: No Hx Migraine: Yes - HEENT Hx HEENT Problems: No - RENAL Hx Chronic Kidney Disease: No Hx Kidney Stones: No - ENDOCRINE/METABOLIC Hx Hypothyroidism: No - HEMATOLOGICAL/ONCOLOGICAL Hx Cancer: No - INTEGUMENTARY Hx Dermatological Problems: Yes (RIGHT 2ND TOE AND 5TH TOE AMPUTATED) - MUSCULOSKELETAL/RHEUMATOLOGICAL Hx Arthritis: No - GASTROINTESTINAL Hx Crohn's Disease: No Hx Diverticulitis: No Hx Gall Bladder Disease: Yes - GENITOURINARY/GYNECOLOGICAL Hx Sexually Transmitted Disorders: No - PSYCHIATRIC Hx Anxiety: Yes Hx Depression: Yes (pt reports periods of sadness) Hx Substance Use: No - SURGICAL HISTORY Hx Mastectomy: No - ANESTHESIA Hx Anesthesia Reactions: No Hx Malignant Hyperthermia: No Meds Allergies/Adverse Reactions: Allergies Allergy/AdvReac Type Severity Reaction Status Date / Time No Known Allergies Allergy Verified 02/11/18 15:33 - Medications Medications: Current Medications Aspirin (Aspirin Chewable) 81 mg PO DAILY [facility] Last Admin: 09/18/18 10:06 Dose: 81 mg Atorvastatin Calcium (Lipitor) 40 mg PO HS [facility] Last Admin: 09/18/18 22:07 Dose: Not Given Clonazepam (Klonopin) 1 mg PO BID [facility]; Protocol Last Admin: 09/18/18 18:23 Dose: 1 mg Clopidogrel Bisulfate (Plavix) 75 mg PO DAILY [facility] Last Admin: 09/18/18 10:06 Dose: 75 mg Dextrose (Dextrose 50% Inj) 0 ml IV STAT PRN; Protocol PRN Reason: Hypoglycemia Protocol Sodium Chloride (Sodium Chloride 0.9%) 1,000 mls @ 100 mls/hr IV .Q10H [facility] Last Admin: 09/18/18 21:42 Dose: 100 mls/hr Dextrose (Dextrose 5% In Water 1000 Ml) 1,000 mls @ 0 mls/hr IV .Q0M PRN; Protocol PRN Reason: Hypoglycemia Protocol Vancomycin HCl (Vancomycin 1gm) 1 gm in 250 mls @ 167 mls/hr IVPB Q12H [facility]; Protocol Last Admin: 09/19/18 00:24 Dose: 167 mls/hr Insulin Human Lispro (Humalog Low) 0 units SC ACHS [facility]; Protocol Last Admin: 09/18/18 21:42 Dose: Not Given Methadone HCl (Methadone) 20 mg PO BID [facility] Last Admin: 09/18/18 18:23 Dose: 10 mg Pantoprazole Sodium (Protonix Ec Tab) 40 mg PO DAILY [facility] Last Admin: 09/18/18 10:05 Dose: 40 mg Ramipril (Altace) 1.25 mg PO DAILY [facility] Last Admin: 09/18/18 11:49 Dose: 1.25 mg Sitagliptin Phosphate (Januvia) 100 mg PO DAILY [facility] Last Admin: 09/18/18 10:07 Dose: 100 mg Physical Exam - Constitutional Appears: Well, Non-toxic, No Acute Distress - Head Exam Head Exam: ATRAUMATIC, NORMAL INSPECTION - Eye Exam Eye Exam: EOMI ( ), Normal appearance, PERRL. absent: Scleral icterus - ENT Exam ENT Exam: Mucous Membranes Moist, Normal Exam - Neck Exam Neck exam: Positive for: Full Rom, Normal Inspection - Respiratory Exam Respiratory Exam: NORMAL BREATHING PATTERN. absent: Rales, Respiratory Distress - Cardiovascular Exam Cardiovascular Exam: RRR, +S1, +S2 - GI/Abdominal Exam GI & Abdominal Exam: Normal Bowel Sounds, Soft. absent: Distended, Tenderness Additional comments: no ascites no caput medusa no spider angiomatas - Extremities Exam Extremities exam: Negative for: full ROM, normal inspection (right foot s/p digits 1,2 and 5 amputation) - Back Exam Additional comments: midline wound, dressing c/d/i - Neurological Exam Neurological exam: Alert, Oriented x3 - Skin Skin Exam: Normal Color, Warm Additional comments: no jaundice noted Results - Vital Signs Recent Vital Signs: Last Vital Signs Temp 98.3 F 09/19/18 06:00 Pulse 51 L 09/19/18 06:00 Resp 18 09/19/18 06:00 BP 139/68 09/19/18 06:00 Pulse Ox 93 L 09/19/18 06:00 - Labs Result Diagrams: 09/17/18 15:00 09/17/18 15:00 Labs: Laboratory Results - last 24 hr 09/17/18 09/18/18 09/18/18 15:00 11:20 11:38 POC Glucose (mg/dL) 134 H C-Reactive Protein < 5.00 < 5.00 09/18/18 09/18/18 09/19/18 16:45 21:14 07:12 POC Glucose (mg/dL) 124 H 162 H 145 H C-Reactive Protein Assessment & Plan - Assessment and Plan (Free Text) Assessment: 68 year old male with a PMH of HCV (not treated), CAD s/p CABG, DM2, HTN, OM s/p amputations of right digits, and spinal surgery w/ recurrent discharge who presents for another episode of discharge from near his orthopedic surgery. GI consulted for hep c. Patient has not received treatment. Plan: - HCV panel ordered w/ RNA, QN, genotype - abdominal US ordered - ID and surgical teams are following regarding his back wound - cultures pending - abx per ID - PPI for GI ppx - patient instructed that we will do basic work-up while inpatient but that he has to f/u as outpatient for management and treatment - patient instructed to practice safe precautions given his status Case was reviewed and discussed with attending, Dr. Edouard <Megan Edouard V - Last Filed: 09/19/18 18:07> Meds - Medications Medications: Current Medications Aspirin (Aspirin Chewable) 81 mg PO DAILY [facility] Last Admin: 09/19/18 10:06 Dose: 81 mg Atorvastatin Calcium (Lipitor) 40 mg PO HS [facility] Last Admin: 09/18/18 22:07 Dose: Not Given Clonazepam (Klonopin) 1 mg PO BID [facility]; Protocol Last Admin: 09/19/18 10:07 Dose: 1 mg Clopidogrel Bisulfate (Plavix) 75 mg PO DAILY [facility] Last Admin: 09/19/18 10:07 Dose: 75 mg Dextrose (Dextrose 50% Inj) 0 ml IV STAT PRN; Protocol PRN Reason: Hypoglycemia Protocol Sodium Chloride (Sodium Chloride 0.9%) 1,000 mls @ 100 mls/hr IV .Q10H [facility] Last Admin: 09/18/18 21:42 Dose: 100 mls/hr Dextrose (Dextrose 5% In Water 1000 Ml) 1,000 mls @ 0 mls/hr IV .Q0M PRN; Protocol PRN Reason: Hypoglycemia Protocol Vancomycin HCl (Vancomycin 1gm) 1 gm in 250 mls @ 167 mls/hr IVPB Q12H [facility]; [facility] Last Admin: 09/19/18 15:20 Dose: 167 mls/hr Insulin Human Lispro (Humalog Low) 0 units SC ACHS [facility]; Protocol Last Admin: 09/19/18 17:22 Dose: Not Given Methadone HCl (Methadone) 20 mg PO BID [facility] Last Admin: 09/19/18 10:07 Dose: 20 mg Pantoprazole Sodium (Protonix Ec Tab) 40 mg PO DAILY [facility] Last Admin: 09/19/18 10:07 Dose: 40 mg Polyethylene Glycol (Miralax) 17 gm PO DAILY [facility] Last Admin: 09/19/18 15:21 Dose: 17 gm Ramipril (Altace) 1.25 mg PO DAILY [facility] Last Admin: 09/18/18 11:49 Dose: 1.25 mg Sitagliptin Phosphate (Januvia) 100 mg PO DAILY [facility] Last Admin: 09/19/18 10:07 Dose: 100 mg Results - Vital Signs Recent Vital Signs: Last Vital Signs Temp 97.5 F L 09/19/18 16:34 Pulse 10 L 09/19/18 16:34 Resp 20 09/19/18 16:34 BP 115/75 09/19/18 16:34 Pulse Ox 97 09/19/18 16:34 - Labs Result Diagrams: 09/17/18 15:00 09/17/18 15:00 Labs: Laboratory Results - last 24 hr 09/18/18 09/19/18 09/19/18 21:14 07:12 11:31 POC Glucose (mg/dL) 162 H 145 H 121 H 09/19/18 16:32 POC Glucose (mg/dL) 128 H Attending/Attestation - Attestation I have personally seen and examined this patient.: Yes I have fully participated in the care of the patient.: Yes I have reviewed all pertinent clinical information: Yes Notes (Text): This is an addendum to the GI consultation report dictated by the medical practice manager. The patient was seen and evaluated. Imaging studies and previous charts were reviewed. Patient was admitted with a discharging wound from the back. Known to have chronic hepatitis C noncompliant with the follow-up recommendation for hep C the past History of chronically dilated common bile duct. The sonogram today revealed and 30 mm patient had an MRCP done in 2017 was found to have tonically dilated CBD. Patient did have cholecystectomy. Intraoperative cholangiogram was done which was reviewed Patient also had a liver biopsy done. I had detailed discussion with the patient. Patient was aware of the diagnosis even now he has been reluctant to have any treatment or workup now. He wants this evaluation after his back issue is what resolved Would request repeat viral serology and genotype, alpha-fetoprotein levels Thank you for allowing us to participate in the care of the patient. 09/19/18 18:02
--- NOTE | 2018-09-19 09:22 | PN ---
DATE: 09/18/2018 SUBJECTIVE: The patient is a 68-year-old male. He is in the bed, comfortable, no distress, seen by surgical team. He has no other complaints. PHYSICAL EXAMINATION: VITAL SIGNS: Temperature 98.1, heart rate is 46, blood pressure 162/80, respirations 18, saturation 94%. HEAD AND NECK: Normal. No JVD. No thyromegaly. CHEST: Clear bilaterally. CARDIOVASCULAR: First and second sounds are normal. No murmur, rub, or gallop. ABDOMEN: Soft, nontender. EXTREMITIES: No edema. Multiple right toes amputations. NEUROLOGICAL: Normal. BACK: The wound is open. Covered with some discharge. LABORATORY DATA: Sed rate 35, blood sugar 134, and C-reactive protein less than 5. The patient also had a UA which shows moderate red blood cells, 10 to 15 otherwise negative. Toxicology was positive for methadone. IMPRESSION AND PLAN: 1. Thoracic spine open wound. Continue IV antibiotic vancomycin 2 times daily for now till Dr. English evaluates the patient. CT was done, will review with Infectious Disease and . Continue current medicines, local wound care. Cultures still pending. 2. Chronic back pain. 3. Diabetes. 4. Coronary artery disease. 5. Hypercholesterolemia. 6. Continue insulin coverage. 7. Continue aspirin, Plavix, Lipitor and followup clinically. 8. Also continue 20 two times daily. 9. Continue current treatment. Tate Villa MD
[2018-09-19] MEDS: Insulin Lispro (humaLOG) LOW Coverage SC SCH ×4 (10:06→21:34)
[2018-09-19] MEDS: Pantoprazole 40 mg EC Tab PO SCH (10:07)
--- NOTE | 2018-09-19 10:17 | CP.PCM.APN ---
Subjective - Date & Time of Evaluation Date of Evaluation: 09/19/18 Time of Evaluation: 10:00 - Subjective Subjective: Pt seen and examined at bedside. In no acute distress. Denies any back pain. Objective - Vital Signs/Intake and Output Vital Signs (last 24 hours): Temp Pulse Resp BP Pulse Ox 98.3 F 51 L 18 139/68 93 L 09/19/18 06:00 09/19/18 06:00 09/19/18 06:00 09/19/18 06:00 09/19/18 06:00 Intake and Output: 09/19/18 09/19/18 06:59 18:59 Intake Total 1200 Output Total 2000 Balance -800 - Medications Medications: Current Medications Aspirin (Aspirin Chewable) 81 mg PO DAILY [facility] Last Admin: 09/19/18 10:06 Dose: 81 mg Atorvastatin Calcium (Lipitor) 40 mg PO HS [facility] Last Admin: 09/18/18 22:07 Dose: Not Given Clonazepam (Klonopin) 1 mg PO BID [facility]; Protocol Last Admin: 09/19/18 10:07 Dose: 1 mg Clopidogrel Bisulfate (Plavix) 75 mg PO DAILY [facility] Last Admin: 09/19/18 10:07 Dose: 75 mg Dextrose (Dextrose 50% Inj) 0 ml IV STAT PRN; Protocol PRN Reason: Hypoglycemia Protocol Sodium Chloride (Sodium Chloride 0.9%) 1,000 mls @ 100 mls/hr IV .Q10H [facility] Last Admin: 09/18/18 21:42 Dose: 100 mls/hr Dextrose (Dextrose 5% In Water 1000 Ml) 1,000 mls @ 0 mls/hr IV .Q0M PRN; Protocol PRN Reason: Hypoglycemia Protocol Vancomycin HCl (Vancomycin 1gm) 1 gm in 250 mls @ 167 mls/hr IVPB Q12H [facility]; Protocol Last Admin: 09/19/18 00:24 Dose: 167 mls/hr Insulin Human Lispro (Humalog Low) 0 units SC ACHS [facility]; Protocol Last Admin: 09/19/18 10:06 Dose: Not Given Methadone HCl (Methadone) 20 mg PO BID [facility] Last Admin: 09/19/18 10:07 Dose: 20 mg Pantoprazole Sodium (Protonix Ec Tab) 40 mg PO DAILY [facility] Last Admin: 09/19/18 10:07 Dose: 40 mg Polyethylene Glycol (Miralax) 17 gm PO DAILY [facility] Ramipril (Altace) 1.25 mg PO DAILY [facility] Last Admin: 09/18/18 11:49 Dose: 1.25 mg Sitagliptin Phosphate (Januvia) 100 mg PO DAILY [facility] Last Admin: 09/19/18 10:07 Dose: 100 mg - Labs Labs: 09/17/18 15:00 09/17/18 15:00 PT 13.3 SECONDS (9.4-12.5) H 09/17/18 15:00 INR 1.20 09/17/18 15:00 APTT 35.6 Seconds (26.9-38.3) 09/17/18 15:00 - Constitutional Appears: No Acute Distress - Head Exam Head Exam: ATRAUMATIC - Respiratory Exam Respiratory Exam: Clear to Ausculation Bilateral, NORMAL BREATHING PATTERN - Cardiovascular Exam Cardiovascular Exam: REGULAR RHYTHM, +S1, +S2 - GI/Abdominal Exam GI & Abdominal Exam: Soft, Normal Bowel Sounds - Rectal Exam Rectal Exam: Deferred - Back Exam Additional comments: + ulcer at T9-T10 level with small amount of serosanguineous drain. No foul smell noted. - Neurological Exam Neurological Exam: Alert, Awake, Oriented x3 Assessment and Plan - Assessment and Plan (Free Text) Assessment: Pt is 68 y.o. male admitted for ulcer at T9-T10 level. Plan: Awaiting Dr. Luis Eduardo michel Wcx pending On Vanco per PMD ID on consult Meds per MAR Will continue to follow
[2018-09-19] MEDS: POLYETHYLENE GLYCOL 3350 17 GM/Dose PACKET PO SCH (15:21)
[2018-09-19 16:36] VITALS: RESP 20; TEMP 97.5
--- NOTE | 2018-09-19 17:33 | US ---
Date of service: 09/19/2018 HISTORY: evaluate for cirrhosis; hx HCV COMPARISON: None. TECHNIQUE: Sonographic evaluation of the abdomen. FINDINGS: LIVER: Measures 13.0 cm. Hepatopedal blood flow. Fatty infiltration manifest ultrasonographically as increased echogenicity of the liver parenchyma. No mass. No intrahepatic bile duct dilatation. GALLBLADDER: Status post cholecystectomy. No abnormality is seen in the gallbladder fossa. COMMON BILE DUCT: Measures 6.2-13.8 mm. No stones. No dilatation. PANCREAS: Unremarkable as visualized. No mass. No ductal dilatation. RIGHT KIDNEY: Measures 5.1 x 11 0cm. Normal echogenicity. No calculus, mass, or hydronephrosis. LEFT KIDNEY: Measures 5.5 x 10.5cm. Normal echogenicity. No calculus, mass, or hydronephrosis. SPLEEN: 5.4 x 13 6 cm. AORTA: No aneurysmal dilatation. IVC: Unremarkable. OTHER FINDINGS: None. IMPRESSION: Hepatic steatosis, otherwise unremarkable liver. Mild splenomegaly. Status post cholecystectomy, dilated common bile duct without evidence of intrahepatic bile duct dilatation. Otherwise no significant findings.
--- NOTE | 2018-09-19 22:44 | PN ---
DATE: 09/19/2018 SUBJECTIVE: The patient is in bed, in no acute distress, nontoxic. PHYSICAL EXAMINATION VITAL SIGNS: Temperature is 97, blood pressure is 115/70, respiratory rate of 18. HEENT: Unremarkable. NECK: Supple. LUNGS: Decreased breath sounds. HEART: Normal S1, S2. ABDOMEN: Soft. LABORATORY DATA: Reveals white count of 8,000, hemoglobin 11, hematocrit 35. Chemistries are noted. C-reactive protein is less than 5. Urinalysis is noted. Microbiology reveals that blood cultures are negative. Urine cultures gram-negative german and gram-positive cocci. Back cultures are gram-positive cocci. seen on the Gram stain. The patient's abdominal ultrasound is reviewed. ASSESSMENT AND PLAN: A 68-year-old male with diabetes mellitus, hepatitis C, hypertension, hyperlipidemia, coronary artery disease, migraine, depression, methicillin-resistant Staphylococcus aureus bacteremia. CAT scan of the spine noted. Admitted with a thoracic spine skin lesion. The patient had a laminectomy 2 years ago, nonhealing chronic ulcer, must rule out underlying osteomyelitis. It does not appear to indicate on CAT scan and/or infected hardware. The patient does have superficial gram-positive cocci from culture. Will check on it after I maybe start the patient on vancomycin. Blood cultures are negative. If the hardware is infected, antibiotics alone will not be adequate to rectify this matter, the hardware would have to be removed. We will discuss with you. Roel English MD
[2018-09-20] MEDS: Vancomycin 1gm in NS 250ml 1 GM/250 ML BAG IVPB SCH (01:06)
--- NOTE | 2018-09-20 07:57 | CP.PCM.PN ---
<Fernando Nance - Last Filed: 09/20/18 11:39> Subjective - Date & Time of Evaluation Date of Evaluation: 09/20/18 Time of Evaluation: 07:27 - Subjective Subjective: Fernando Nance PGY2 GI Progress Note for Dr. Edouard Patient was seen and examined at bedside. There were no acute overnight events. cultures from back are positive for MRSA. Objective - Vital Signs/Intake and Output Vital Signs (last 24 hours): Temp Pulse Resp BP Pulse Ox 97.5 F L 10 L 20 115/75 97 09/19/18 16:34 09/19/18 16:34 09/19/18 16:34 09/19/18 16:34 09/19/18 16:34 Intake and Output: 09/20/18 09/20/18 06:59 18:59 Intake Total 780 Balance 780 - Medications Medications: Current Medications Aspirin (Aspirin Chewable) 81 mg PO DAILY [facility] Last Admin: 09/19/18 10:06 Dose: 81 mg Atorvastatin Calcium (Lipitor) 40 mg PO HS [facility] Last Admin: 09/19/18 21:54 Dose: 40 mg Clonazepam (Klonopin) 1 mg PO BID [facility]; Protocol Last Admin: 09/19/18 18:18 Dose: 1 mg Clopidogrel Bisulfate (Plavix) 75 mg PO DAILY [facility] Last Admin: 09/19/18 10:07 Dose: 75 mg Dextrose (Dextrose 50% Inj) 0 ml IV STAT PRN; Protocol PRN Reason: Hypoglycemia Protocol Enoxaparin Sodium (Lovenox) 40 mg SC DAILY [facility]; Protocol Sodium Chloride (Sodium Chloride 0.9%) 1,000 mls @ 100 mls/hr IV .Q10H [facility] Last Admin: 09/18/18 21:42 Dose: 100 mls/hr Dextrose (Dextrose 5% In Water 1000 Ml) 1,000 mls @ 0 mls/hr IV .Q0M PRN; Protocol PRN Reason: Hypoglycemia Protocol Vancomycin HCl (Vancomycin 1gm) 1 gm in 250 mls @ 167 mls/hr IVPB Q12H [facility]; Protocol Last Admin: 09/20/18 01:06 Dose: 167 mls/hr Insulin Human Lispro (Humalog Low) 0 units SC ACHS [facility]; Protocol Last Admin: 09/19/18 21:34 Dose: Not Given Methadone HCl (Methadone) 30 mg PO DAILY [facility] Pantoprazole Sodium (Protonix Ec Tab) 40 mg PO DAILY [facility] Last Admin: 09/19/18 10:07 Dose: 40 mg Polyethylene Glycol (Miralax) 17 gm PO DAILY [facility] Last Admin: 09/19/18 15:21 Dose: 17 gm Ramipril (Altace) 1.25 mg PO DAILY [facility] Last Admin: 09/18/18 11:49 Dose: 1.25 mg Sitagliptin Phosphate (Januvia) 100 mg PO DAILY [facility] Last Admin: 09/19/18 10:07 Dose: 100 mg - Labs Labs: 09/17/18 15:00 09/17/18 15:00 PT 13.3 SECONDS (9.4-12.5) H 09/17/18 15:00 INR 1.20 09/17/18 15:00 APTT 35.6 Seconds (26.9-38.3) 09/17/18 15:00 - Constitutional Appears: Well, Non-toxic, No Acute Distress - Head Exam Head Exam: ATRAUMATIC, NORMAL INSPECTION, NORMOCEPHALIC - Eye Exam Eye Exam: EOMI, Normal appearance, PERRL Pupil Exam: NORMAL ACCOMODATION, PERRL - ENT Exam ENT Exam: Mucous Membranes Moist, Normal Exam - Neck Exam Neck Exam: Full ROM, Normal Inspection. absent: Lymphadenopathy - Respiratory Exam Respiratory Exam: Clear to Ausculation Bilateral, NORMAL BREATHING PATTERN - Cardiovascular Exam Cardiovascular Exam: REGULAR RHYTHM, +S1, +S2. absent: Murmur - GI/Abdominal Exam GI & Abdominal Exam: Soft, Normal Bowel Sounds. absent: Distended, Tenderness, Organomegaly Additional comments: no ascites no abdominal fluid wave no caput medusa noted no spider angiomata - Extremities Exam Extremities Exam: Full ROM, Normal Capillary Refill, Normal Inspection. absent: Joint Swelling, Pedal Edema - Back Exam Back Exam: absent: NORMAL INSPECTION Additional comments: midline wound opened, dressing c/d/i - Neurological Exam Neurological Exam: Alert, Awake, Normal Gait, Oriented x3 - Skin Skin Exam: Dry, Normal Color, Warm Additional comments: no jaundice noted upper back findings noted above Assessment and Plan - Assessment and Plan (Free Text) Assessment: 68 year old male with a PMH of HCV (not treated), CAD s/p CABG, DM2, HTN, OM s/p amputations of right digits, and spinal surgery w/ recurrent discharge who presents for another episode of discharge from near his orthopedic surgery. GI consulted for hep c. Patient has not received treatment. Plan: - HCV panel ordered w/ RNA, QN, genotype - abdominal US reviewed; showed fatty liver but no signs of cirrhosis - ID and surgical teams are following regarding MRSA in his back wound - final cultures pending - abx per ID - PPI for GI ppx - patient instructed that we will do basic work-up while inpatient but that he has to f/u as outpatient for management and treatment - patient instructed to practice safe precautions given his status Case was reviewed and discussed with attending, Dr. Edouard <Megan Edouard V - Last Filed: 09/20/18 21:56> Objective - Vital Signs/Intake and Output Vital Signs (last 24 hours): Temp Pulse Resp BP Pulse Ox 97.5 F L 55 L 20 140/70 96 09/20/18 08:36 09/20/18 08:36 09/20/18 08:36 09/20/18 09:06 09/20/18 08:36 - Labs Labs: 09/20/18 11:10 09/20/18 11:10 PT 13.3 SECONDS (9.4-12.5) H 09/17/18 15:00 INR 1.20 09/17/18 15:00 APTT 35.6 Seconds (26.9-38.3) 09/17/18 15:00 Attending/Attestation - Attestation I have personally seen and examined this patient.: Yes I have fully participated in the care of the patient.: Yes I have reviewed all pertinent clinical information, including history, physical exam and plan: Yes Notes (Text): The patient was seen and evaluated here earlier with the resident. There is an addendum to the GI progress report dictated by the medical dir Patient was clearly explained about the have chronic hepatitis C and importance of follow-up risk of cirrhosis and hepatoma explained patient fully understood. Patient does not want to go through any further workup regarding the liver or GI issue until his back wound heals Continue antibiotics as per ID Patient's alpha-fetoprotein was normal Patient also has a chronically dilated common bile duct Intraoperative cholangiogram done in the past was negative This admission imaging studies were reviewed Advised the patient follow-up in our office for hepatobiliary issues. Patient mentioned that she usually would do it after follow-up with Dr. Villa in the office once the wound heals. Thank you Dr. Castillo for allowing me to participate in the care of the patient 09/20/18 21:54
[2018-09-20] MEDS: Insulin Lispro (humaLOG) LOW Coverage SC SCH ×2 (08:16→12:04)
[2018-09-20 08:36] VITALS: BP 140/70; PULSE 55; O2SAT 96
[2018-09-20] MEDS: POLYETHYLENE GLYCOL 3350 17 GM/Dose PACKET PO SCH (09:06)
[2018-09-20] MEDS: Pantoprazole 40 mg EC Tab PO SCH (09:07)
[2018-09-20] MEDS ORDERED: Enoxaparin 40 mg Syringe SC SCH (10:00)
[2018-09-20 11:21] LABS: HEMOGLOBIN 10.7 g/dL (14.0-18.0); MEAN CELL VOLUME 82.4 fl (80.0-105.0); MEAN CORPUSCULAR HEMOGLOBIN 25.2 pg (25.0-35.0); MEAN CORPUSCULAR HGB CONC 30.6 g/dl (31.0-37.0); MEAN PLATELET VOLUME 10.5 fl (7.0-11.0); RBC 4.25 10^6/uL (3.5-6.1); RED CELL DISTRIBUTION WIDTH 16.2 % (11.5-14.5); WHITE BLOOD COUNT 7.1 10^3/uL (4.5-11.0)
[2018-09-20 11:33] LABS: BLOOD UREA NITROGEN 15 mg/dL (7-21); GFR NON-AFRICAN AMERICAN > 60
[2018-09-20 11:34] LABS: ALB/GLOB RATIO 0.9 (1.1-1.8); ALBUMIN 3.2 g/dL (3.0-4.8); ALT/SGPT 37 U/L (7-56); AST/SGOT 48 U/L (17-59); CALCIUM 8.9 mg/dL (8.4-10.5)
--- NOTE | 2018-09-20 11:39 | CP.PCM.PN ---
Subjective - Date & Time of Evaluation Date of Evaluation: 09/20/18 Time of Evaluation: 11:37 - Subjective Subjective: i wrote a note wednesday I do not understand why it is not in chart reviewed CT there is no indication for hardware removal pt needs to be treated at a wound healing center as they will offer best treatment possibility not clear on how compliant patient is with treatment Objective - Vital Signs/Intake and Output Vital Signs (last 24 hours): Temp Pulse Resp BP Pulse Ox 97.5 F L 55 L 20 140/70 96 09/20/18 08:36 09/20/18 08:36 09/20/18 08:36 09/20/18 09:06 09/20/18 08:36 Intake and Output: 09/20/18 09/20/18 06:59 18:59 Intake Total 780 Balance 780 - Medications Medications: Current Medications Aspirin (Aspirin Chewable) 81 mg PO DAILY [facility] Last Admin: 09/20/18 09:07 Dose: 81 mg Atorvastatin Calcium (Lipitor) 40 mg PO HS [facility] Last Admin: 09/19/18 21:54 Dose: 40 mg Clonazepam (Klonopin) 1 mg PO BID [facility]; Protocol Last Admin: 09/20/18 09:07 Dose: 1 mg Clopidogrel Bisulfate (Plavix) 75 mg PO DAILY [facility] Last Admin: 09/20/18 09:07 Dose: 75 mg Dextrose (Dextrose 50% Inj) 0 ml IV STAT PRN; Protocol PRN Reason: Hypoglycemia Protocol Enoxaparin Sodium (Lovenox) 40 mg SC DAILY [facility]; Protocol Last Admin: 09/20/18 09:06 Dose: 40 mg Sodium Chloride (Sodium Chloride 0.9%) 1,000 mls @ 100 mls/hr IV .Q10H [facility] Last Admin: 09/18/18 21:42 Dose: 100 mls/hr Dextrose (Dextrose 5% In Water 1000 Ml) 1,000 mls @ 0 mls/hr IV .Q0M PRN; Protocol PRN Reason: Hypoglycemia Protocol Vancomycin HCl (Vancomycin 1gm) 1 gm in 250 mls @ 167 mls/hr IVPB Q12H [facility]; Protocol Last Admin: 09/20/18 01:06 Dose: 167 mls/hr Insulin Human Lispro (Humalog Low) 0 units SC ACHS [facility]; Protocol Last Admin: 09/20/18 08:16 Dose: Not Given Methadone HCl (Methadone) 30 mg PO DAILY [facility] Last Admin: 09/20/18 09:07 Dose: 30 mg Pantoprazole Sodium (Protonix Ec Tab) 40 mg PO DAILY [facility] Last Admin: 09/20/18 09:07 Dose: 40 mg Polyethylene Glycol (Miralax) 17 gm PO DAILY [facility] Last Admin: 09/20/18 09:06 Dose: 17 gm Ramipril (Altace) 1.25 mg PO DAILY [facility] Last Admin: 09/20/18 09:06 Dose: 1.25 mg Sitagliptin Phosphate (Januvia) 100 mg PO DAILY [facility] Last Admin: 09/20/18 09:07 Dose: 100 mg - Labs Labs: 09/20/18 11:10 09/20/18 11:10 PT 13.3 SECONDS (9.4-12.5) H 09/17/18 15:00 INR 1.20 09/17/18 15:00 APTT 35.6 Seconds (26.9-38.3) 09/17/18 15:00
--- NOTE | 2018-09-20 12:50 | PN ---
DATE: 09/19/2018 SUBJECTIVE: The patient was seen and examined. He still has the back wound drain. Seen by surgical team. Awaiting for neurosurgeon to look at him. PHYSICAL EXAMINATION: VITAL SIGNS: Temperature 97.5, heart rate 55, blood pressure 115/75, respirations 20, saturation 97% on room air. HEAD AND NECK: Examination is normal. NECK: No JVD. No thyromegaly. CHEST: Clear bilateral. CARDIAC: First sound and second sound normal. No murmur, rub, or gallop. ABDOMEN: Soft, nontender. EXTREMITIES: No edema. There is right toe amputation from previous surgery. LABORATORY DATA: Chemistry is noted for blood sugar between 100 and 200 range. IMPRESSION AND PLAN: 1. 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 He has been seen in the past by other team on previous admission and wound was closed and he is doing fine. Continue current therapy as per Infectious Disease. The patient is currently getting vancomycin 1 g every 12 hours. 2. Chronic back pain. 3. Continue vancomycin. Continue methadone. 3. Chronic anxiety. Continue Klonopin oral. 4. Hypercholesterolemia, diabetes type 2. Continue insulin, Januvia, Lipitor, MiraLax, Plavix, Protonix, aspirin, and Altace. Continue insulin coverage. Seems stable between 100 to 200. We will follow up clinically. Still awaiting the neurosurgeon. Tate Villa MD
--- NOTE | 2018-09-20 14:32 | PN ---
DATE: 09/20/2018 SUBJECTIVE: The patient seen earlier today. He has no back pain. No nausea, no vomiting, no chest pain. OBJECTIVE: VITAL SIGNS: On exam, temperature is 98, blood pressure is 40/70, respiratory rate of 20, heart rate of 55. HEENT: Unremarkable. NECK: Supple. LUNGS: Have decreased breath sounds. HEART: Normal S1 and S2. ABDOMEN: Soft. LABORATORY EXAMINATION: Reveals a white count of 7.1. Sed rate is 35. Chemistries reveals a C-reactive protein is less than 5 times twice. Urinalysis is noted and progress note is reviewed.. No indication for surgery. Neurosurgery feels . ASSESSMENT AND PLAN: This is a 68-year-old male who has had a history of methicillin-resistant staphylococcus aureus bacteremia who has had vertebral osteomyelitis, had surgery, laminectomy and now has methicillin-resistant staphylococcus aureus. Superficial wound infection relatively normal sed rate, negative CAT scan for infection of the bone or hardware, neurosurgery feels there is no hardware infection and normal C-reactive protein with methicillin-resistant staphylococcus aureus wound infection, we will treat with doxycycline 100 mg p.o. b.i.d. x7 days for a superficial wound infection in a patient who has had a laminectomy 2 years ago, has a non-healing chronic ulcer who is diabetic and has hepatitis C, hypertension, hyperlipidemia, coronary artery disease, depression, migraine, history of methicillin-resistant staphylococcus aureus bacteremia. Roel English MD
--- NOTE | 2018-09-20 21:07 | CARD ---
APPROVED REPORT Date of service: 09/20/2018 EKG Measurement Heart [id number] <Conclusion> Marked sinus bradycardia Left axis deviation Right bundle branch block Abnormal ECG
--- NOTE | 2018-09-21 22:43 | DS ---
HISTORY OF PRESENT ILLNESS: Patient is stable. Seen by neurosurgeon twice. Patient is cleared to be discharged. There is no indication for removal of hardware. Patient needs to be treated as wound care and wound care center. All this has been arranged by nurse practitioners and the [place] visiting nurse or visiting nurses. I will see the patient and wound care center will be as recommended. Patient compliance is not that good. He is by himself. He is 68 with being admissible on Klonopin and seems compliant with relevant questions. Patient has no other complaints, stable. He is moving around good. He is not complaining of site of the surgery pain, but he does have chronic low back pain. PHYSICAL EXAMINATION VITAL SIGNS: Temperature 97.5, heart rate is 55, blood pressure 140/70, respirations 20, saturation 97% on room air. HEAD AND NECK: Normal. No JVD. No thyromegaly. CHEST: Clear bilaterally. CARDIAC: First sound and second sound normal. No murmur, rub, or gallop. ABDOMEN: Soft and nontender. EXTREMITIES: No edema. There is right foot toe amputation of the big toe and the toe next to it. NEUROLOGIC: Patient is walking around. Patient moves all extremities. He knows where he is. He is alert, awake, and oriented. LABORATORY DATA: Urine clean-catch done, gram positive, gram negative. He also has MRSA on the wound culture. Patient is seen by Dr. English. Also laboratory [place]; his white count 7.1, hemoglobin 10.7, hematocrit 35, and platelets 132. Chemistry; sodium 140, potassium 5, chloride 102, bicarb 31, BUN 15, creatinine 0.9. Liver function test is normal. Patient had also a CT of the spine, which questionable infection in the hardware was treated. Postoperative findings; soft tissue skin lesion wound finding extended to the laminectomy site. Patient also had ultrasound of the abdomen and the finding shows status post cholecystectomy, mild splenomegaly, hepatic steatosis, otherwise normal. IMPRESSION AND PLAN 1. Mid thoracic back wound. Patient seen by Infectious Disease and by neurosurgeon. Recommendation of doxycycline 15 days has been given and local wound care has been arranged by the nurse practitioners and visiting nurse. 2. Chronic back pain on methadone. Continue methadone. 3. Diabetes. Continue diabetic medications. His blood sugar is running good. It seems controlled. 4. Coronary artery disease and hypertension. PLAN: Continue current medication Altace 1.25 mg p.o. daily, Protonix 40 mg once a day, methadone 30 mg daily, Plavix 75 mg, Lipitor 40 mg, aspirin 81 mg, clonazepam 1 mg b.i.d., Januvia 100 mg p.o. daily, and iodoform, he was given a lot of them for back wound care, and doxycycline 100 b.i.d. p.o. for 10 days. We will discharge the patient to follow up in the office. Tate Villa MD
== END 2018-09-20 16:44 | disposition home health service (06) | DRG 863 ==
LOC: ED 14:11 → ERH 18:19 → 3RNO 21:25
PROVIDERS: ADMIT Internal Medicine; ATTEND Internal Medicine
DX: T81.41XA Infection following a procedure, superficial incisional surgical site, initial encounter (principal); L03.90 Cellulitis, unspecified; F11.20 Opioid dependence, uncomplicated; S21.209A Unspecified open wound of unspecified back wall of thorax without penetration into thoracic cavity, initial encounter; I25.10 Atherosclerotic heart disease of native coronary artery without angina pectoris; I10 Essential (primary) hypertension; E78.5 Hyperlipidemia, unspecified; E11.51 Type 2 diabetes mellitus with diabetic peripheral angiopathy without gangrene; E11.69 Type 2 diabetes mellitus with other specified complication; B18.2 Chronic viral hepatitis C; Z79.82 Long term (current) use of aspirin; Z79.899 Other long term (current) drug therapy; Z79.02 Long term (current) use of antithrombotics/antiplatelets; Z79.84 Long term (current) use of oral hypoglycemic drugs; E86.0 Dehydration; B95.62 Methicillin resistant Staphylococcus aureus infection as the cause of diseases classified elsewhere; F17.200 Nicotine dependence, unspecified, uncomplicated; G89.29 Other chronic pain; K76.0 Fatty (change of) liver, not elsewhere classified; K83.8 Other specified diseases of biliary tract; Z91.19 Patient's noncompliance with other medical treatment and regimen; Z98.1 Arthrodesis status; E78.00 Pure hypercholesterolemia, unspecified; F32.89 Other specified depressive episodes; F41.9 Anxiety disorder, unspecified; G43.909 Migraine, unspecified, not intractable, without status migrainosus; J44.9 Chronic obstructive pulmonary disease, unspecified; Z89.421 Acquired absence of other right toe(s); Z95.1 Presence of aortocoronary bypass graft; Z95.5 Presence of coronary angioplasty implant and graft